=== PATIENT | male | born 1955 | race Caucasian/White ===

== ENCOUNTER 2016-09-06 18:59 | Inpatient (IN) | payer MEDICARE ==
[2016-09-06] MEDS ORDERED: PROVENTIL 2.5 MG/3 ML NEB IH ONE ×2 (19:33→19:45)
[2016-09-06] MEDS ORDERED: Zosyn 3.375GM/100 Ml D5W 100 ML IV ONE ×2 (19:33→20:06)
[2016-09-06] MEDS ORDERED: Zithromax 500 MG/ 250 ML NaCl Premix 250 ML IV ONE ×2 (19:33→20:05)
[2016-09-06] MEDS ORDERED: Sodium Chloride 0.9% 1000 ML 1,000 ML IV STA ×2 (19:33→19:37)
[2016-09-06] MEDS ORDERED: Sodium Chloride 0.9% 1000 ML 2,000 ML ONE (19:34)
[2016-09-06] MEDS ORDERED: TYLENOL 325 MG PO STA (19:37)
--- NOTE | 2016-09-06 19:45 | ERPHSYRPT ---
- History of Present Illness Time Seen by Provider: 09/06/16 19:30 Source: patient, family Exam Limitations: clinical condition Patient Subjective Stated Complaint: sister/poa states pt has been weak and running a temp at home. states weakness has been on the mostly on the rt side and his rt his rt side has been jerking. has been to the neurologist today and had an mri d/t weakness and falling. pt is on thickened liquids, honey consistency. Triage Nursing Assessment: pt alert, answers questions. skin poink, hot and dry. resirations nonlabored. occasional moist cough n oted. Physician History: PATIENT WITH HISTORY OF DIABETES AND COPD COMPLAINS OF PRODUCTIVE COUGH, INCREASING DYSPNEA, FEVER AND CHILLS FOR 3 DAYS. DENIES CHEST PAIN. HAS INCREASED DIFFICULTY BREATHING. Timing/Duration: day(s) Activities at Onset: activity Severity of Dyspnea-Current: severe Possible Cause: occasional episodes Modifying Factors: Improves With: coughing, exertion Associated Symptoms: cough, productive cough Allergies/Adverse Reactions: No Known Drug Allergies Allergy (Verified 09/06/16 19:25) Home Medications: Fluticasone/Salmeterol [Advair 250-50 Diskus] 1 puff IH BID 01/01/12 [History] Gabapentin 600 mg PO TID 01/01/12 [History] Metformin HCl 500 mg [Glucophage 500 MG] 500 mg PO BID 01/01/12 [History] Omeprazole 40 mg PO BID 01/01/12 [History] Sertraline HCl 100 mg PO HS 01/01/12 [History] Tiotropium [place] Inhaler [Spiriva 18 Mcg/Cap Inhaler] 18 mcg IH DAILY [History] Aspirin [Aspir 81] 81 mg PO DAILY 01/20/12 [History] Divalproex Sodium [Depakote] 500 mg PO TID 03/31/14 [History] Duloxetine HCl [Cymbalta] 60 mg PO BID 03/31/14 [History] Ferrous Sulfate 325 mg [Feosol 325 mg] 325 mg PO BID 03/31/14 [History] Mirabegron [Myrbetriq] 50 mg PO HS 03/31/14 [History] Multivitamin [Multivitamins] 1 each PO DAILY 03/31/14 [History] Primidone 50 MG [Mysoline 50Mg] 50 mg PO TID 03/31/14 [History] Tamsulosin HCl 0.4 mg [Flomax 0.4 MG] 0.4 mg PO HS 03/31/14 [History] Albuterol Sulfate [Proair Hfa] 8.5 gm IH Q4H PRN PRN 09/06/16 [History] Atorvastatin Calcium 40 mg PO HS 09/06/16 [History] Cholecalciferol (Vitamin D3) [Vitamin D3] 1,000 unit PO DAILY 09/06/16 [History] Exenatide Microspheres [Bydureon Pen] 2 mg SQ WEEKLY 09/06/16 [History] Hydrocodone/APAP 10/325 mg [[place] 10/325 MG Tablet] 1 tab PO Q4H PRN PRN 09/06/16 [History] Naproxen [Naprosyn] 500 mg PO BID 09/06/16 [History] Topiramate 25 mg [Topamax 25 MG] 25 mg PO HS 09/06/16 [History] Hx Tetanus, Diphtheria Vaccination/Date Given: Yes Hx Influenza Vaccination/Date Given: Yes Hx Pneumococcal Vaccination/Date Given: Yes Immunizations Up to Date: Yes - Review of Systems Constitutional: Fever, Chills Eyes: No Symptoms Ears, Nose, & Throat: No Symptoms Respiratory: Cough, Dyspnea, Dyspnea on Exertion ([place]) Cardiac: No Symptoms Abdominal/Gastrointestinal: No Symptoms Genitourinary Symptoms: No Symptoms Musculoskeletal: No Symptoms Skin: No Symptoms Neurological: Lethargy, Other (GENERALIZED WEAKNESS) Psychological: No Symptoms - Past Medical History Pertinent Past Medical History: Yes Neurological History: Peripheral Neuropathy, Seizures ENT History: No Pertinent History Cardiac History: Hypertension Respiratory History: Asthma Endocrine Medical History: Diabetes Type II Musculoskeletal History: Osteoarthritis GI Medical History: No Pertinent History History: No Pertinent History Psycho-Social History: Depression, Other Male Reproductive Disorders: No Pertinent History Other Medical History: SEE HX IN CHART, sees urologist. - Past Surgical History Past Surgical History: No Neuro Surgical History: No Pertinent History Cardiac: No Pertinent History Respiratory: No Pertinent History Gastrointestinal: Hernia Repair, Other Genitourinary: No Pertinent History Musculoskeletal: No Pertinent History Male Surgical History: No Pertinent History Other Surgical History: right side inguinal hernia surgery 1987. nose operation 1991. ABDOMINAL CYST - Social History Smoking Status: Former smoker How long have you smoked: UNSURE Exposure to second hand smoke: No Drug Use: none Patient Lives Alone: Yes - Nursing Vital Signs Nursing Vital Signs: Initial Vital Signs Temperature 101.9 F Temperature Source Oral Pulse Rate 78 Respiratory Rate 18 Blood Pressure [] 148/103 Pain Intensity 5 - Physical Exam General Appearance: lethargy Eye Exam: PERRL/EOMI Ears, Nose, Throat Exam: hearing grossly normal, normal ENT inspection Neck Exam: normal inspection, supple Respiratory Exam: diminished breath sounds (DIFFUSELY) Cardiovascular/Chest Exam: normal heart sounds, tachycardia Abdominal/Gastrointestinal Exam: soft, normal bowel sounds, No tenderness, No distention, No mass Extremity Exam: non-tender, normal range of motion, normal inspection, no calf tenderness, no pedal edema Peripheral Pulses Exam: carotid (R): 2+, carotid (L): 2+, femoral (R): 2+, femoral (L): 2+, dorsalis-pedis (R): 2+, dorsalis-pedis (L): 2+ Neurologic Exam: alert, oriented x 3, cooperative, 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 NO EVIDENCE OF PULMONARY EMBOLISM) Ordered Tests: Active Orders 24 hr Category Date Time Status Bedrest with BRP/BSC TOLERATED Activity 09/06/16 23:23 Ordered Admission/Status Order ROUTINE Care 09/06/16 23:24 Ordered Paper Control Clerk STAT Care 09/06/16 19:33 Active Clean Catch Urine Specimen STAT Care 09/06/16 19:33 Active Code Status Order ROUTINE Care 09/06/16 23:23 Ordered EKG-ER Only STAT Care 09/06/16 19:33 Active IV Insertion ROUTINE Care 09/06/16 23:24 Ordered IV Insertion STAT Care 09/06/16 19:33 Active Implement Pneumonia Pathway ROUTINE Care 09/06/16 23:24 Ordered Intake and Output 09,13,18,21 Care 09/06/16 23:23 Ordered Oxygen-ED Only NASAL CANNULA 2 lpm Care 09/06/16 19:33 Active Vital Signs .q15mx2,q3omx2,q1hx2,d1in68d Care 09/06/16 23:23 Ordered Cardiac Diet Diet 09/06/16 Breakfast Ordered CHEST 1 VIEW (PORTABLE) Stat Exams 09/06/16 19:34 Taken CHEST WITH CONTRAST [CT] Stat Exams 09/06/16 20:42 Taken ARTERIAL BLOOD GASES Urgent Lab 09/06/16 19:33 Completed BLOOD CULTURE Stat Lab 09/06/16 19:48 Received BLOOD CULTURE Stat Lab 09/06/16 23:24 Ordered BMP Stat Lab 09/06/16 23:24 Ordered CBC W DIFF Stat Lab 09/06/16 19:47 Completed CBC W DIFF Stat Lab 09/06/16 23:24 Ordered CMP Stat Lab 09/06/16 19:47 Completed D-DIMER QUANTITATION Stat Lab 09/06/16 19:47 Completed Lactic Acid Urgent Lab 09/06/16 19:33 Completed PROTIME WITH INR Stat Lab 09/06/16 19:47 Completed TROPONIN Q3H Lab 09/06/16 19:51 Completed TROPONIN Q3H Lab 09/06/16 22:40 Completed TROPONIN Q3H Lab 09/07/16 01:45 Ordered TROPONIN Q3H Lab 09/07/16 04:45 Ordered TROPONIN Q3H Lab 09/07/16 07:45 Ordered UA Stat Lab 09/06/16 23:16 Received Oxygen VENTI-MASK 50% RT 09/06/16 22:35 Active Oxygen VENTI-MASK 50% RT 09/06/16 23:23 Ordered Respiratory Nebulizer STAT RT 09/06/16 19:34 Completed Respiratory Therapy Consult ROUTINE RT 09/06/16 23:24 Ordered Transfer Order Routine Transfer 09/06/16 23:23 Ordered Medication Summary Discontinued Medications Generic Name Dose Route Start Last Admin Trade Name Freq PRN Reason Stop Dose Admin Acetaminophen 650 mg 09/06/16 19:37 09/06/16 20:08 Tylenol 325 Mg PO 09/06/16 19:38 650 mg STAT STA Administration Acetaminophen Confirm 09/06/16 20:08 Tylenol 325 Mg Administered 09/06/16 20:09 Dose 650 mg .ROUTE .STK-MED ONE Albuterol Sulfate 10 mg 09/06/16 19:33 09/06/16 20:10 Proventil 2.5 Mg/3 Ml Neb IH 09/06/16 19:34 10 mg STAT ONE Administration Albuterol Sulfate Confirm 09/06/16 19:45 Proventil 2.5 Mg/3 Ml Neb Administered 09/06/16 19:46 Dose 2.5 mg IH .STK-MED ONE Azithromycin 250 mls @ 125 mls/hr 09/06/16 19:33 09/06/16 20:07 Zithromax 500 Mg/ 250 Ml Nacl Premix IV 09/06/16 21:32 125 mls/hr STAT ONE Administration Piperacillin Sod/Tazobactam Sod 100 mls @ 100 mls/hr 09/06/16 19:33 09/06/16 20:07 Zosyn 3.375gm/100 Ml D5w IV 09/06/16 20:32 100 mls/hr STAT ONE Administration Sodium Chloride 1,000 mls @ 999 mls/hr 09/06/16 19:33 09/06/16 20:07 Sodium Chloride 0.9% 1000 Ml IV 09/06/16 20:33 999 mls/hr .Q1H1M STA Administration Sodium Chloride Confirm 09/06/16 19:34 Sodium Chloride 0.9% 1000 Ml Administered 09/06/16 19:35 Dose 2,000 mls @ ud .ROUTE .STK-MED ONE Sodium Chloride 1,000 mls @ 999 mls/hr 09/06/16 19:37 09/06/16 20:07 Sodium Chloride 0.9% 1000 Ml IV 09/06/16 20:37 999 mls/hr .Q1H1M STA Administration Azithromycin Confirm 09/06/16 20:05 Zithromax 500 Mg/ 250 Ml Nacl Premix Administered 09/06/16 20:06 Dose 250 mls @ ud IV .STK-MED ONE Piperacillin Sod/Tazobactam Sod Confirm 09/06/16 20:06 Zosyn 3.375gm/100 Ml D5w Administered 09/06/16 20:07 Dose 100 mls @ ud IV .STK-MED ONE Sodium Chloride Confirm 09/06/16 22:56 Sodium Chloride 0.9% 1000 Ml Administered 09/06/16 22:57 Dose 1,000 mls @ ud .ROUTE .STK-MED ONE Methylprednisolone Sodium Succinate 125 mg 09/06/16 23:22 09/06/16 23:30 Solu-Medrol 125 Mg IV 09/06/16 23:23 125 mg STAT ONE Administration Methylprednisolone Sodium Succinate Confirm 09/06/16 23:26 Solu-Medrol 125 Mg Administered 09/06/16 23:27 Dose 125 mg .ROUTE .STK-MED ONE Sodium Chloride Confirm 09/06/16 20:06 Sodium Chloride 3 Ml Ud Nebules Administered 09/06/16 20:07 Dose 3 ml IH .STK-MED ONE Lab/Rad Data: Laboratory Result Diagrams 09/06/16 19:47 09/06/16 19:47 Laboratory Results 09/06/16 09/06/16 09/06/16 Range/Units 22:40 19:51 19:47 WBC (4.0-10.5) K/mm3 RBC (4.1-5.6) M/mm3 Hgb (12.5-18.0) gm/dl Hct (42-50) % MCV (78-100) fl MCH (26-32) pg MCHC (32-36) g/dl RDW (11.5-14.0) % Plt Count (150-450) K/mm3 MPV (6-9.5) fl Gran % (36.0-66.0) % Lymphocytes % (24.0-44.0) % Monocytes % (0.0-12.0) % Eosinophils % (0.00-5.0) % Basophils % (0.0-0.4) % Basophils # (0-0.4) INR 1.52 (0.8-3.0) D-Dimer 1.261 H* (0.00-0.49) mg/L Puncture Site pCO2 (35-45) mmHg pO2 (75-100) mmHg Base Excess (-2.0-2.0) O2 Saturation (94-100) g/dF ABG pH (7.35-7.45) ABG HCO3 (22-28) ABG O2 Sat (Measured) (95-100) % Mane Test A-a Gradient a/A Ratio Hemoglobin Carboxyhemoglobin (0.0-6.9) % THgb Methemoglobin (1.4-1.5) % Potassium (3.5-5.1) Temperature C POC O2 Flow Rate % Sodium (136-145) mEq/L Chloride (98-107) mEq/L Carbon Dioxide (21-32) mEq/L Anion Gap (5-15) MEQ/L BUN (9-20) mg/dL Creatinine (0.55-1.30) mg/dl Estimated GFR ML/MIN Glucose (70-110) MG/DL Lactic Acid (0.4-2.0) Calcium (8.5-10.1) mg/dL Total Bilirubin (0.2-1.0) mg/dL AST (15-37) U/L ALT (12-78) U/L Alkaline Phosphatase (46-116) U/L Troponin I < 0.017 < 0.017 (0.000-0.056) ng/ml Serum Total Protein (6.4-8.2) gm/dL Albumin (3.4-5.0) g/dL Slides for Path Review 09/06/16 09/06/16 09/06/16 Range/Units 19:47 19:47 19:33 WBC 4.3 (4.0-10.5) K/mm3 RBC 4.01 L (4.1-5.6) M/mm3 Hgb 12.7 (12.5-18.0) gm/dl Hct 37.9 L (42-50) % MCV 94.5 (78-100) fl MCH 31.6 (26-32) pg MCHC 33.5 (32-36) g/dl RDW 13.0 (11.5-14.0) % Plt Count 88 L (150-450) K/mm3 MPV 12.1 H (6-9.5) fl Gran % 66.0 (36.0-66.0) % Lymphocytes % 22.3 L (24.0-44.0) % Monocytes % 11.0 (0.0-12.0) % Eosinophils % 0.5 (0.00-5.0) % Basophils % 0.2 (0.0-0.4) % Basophils # 0.01 (0-0.4) INR (0.8-3.0) D-Dimer (0.00-0.49) mg/L Puncture Site RIGHT RADIAL pCO2 42 (35-45) mmHg pO2 72 L (75-100) mmHg Base Excess 1.0 (-2.0-2.0) O2 Saturation 94.9 (94-100) g/dF ABG pH 7.40 (7.35-7.45) ABG HCO3 26.0 (22-28) ABG O2 Sat (Measured) 98.1 (95-100) % Mane Test YES A-a Gradient 75 a/A Ratio 0.49 Hemoglobin 10.1 Carboxyhemoglobin 2.7 (0.0-6.9) % THgb Methemoglobin 0.5 L (1.4-1.5) % Potassium 4.0 3.7 (3.5-5.1) Temperature 37.0 C POC O2 Flow Rate 28 % Sodium 141 (136-145) mEq/L Chloride 104 (98-107) mEq/L Carbon Dioxide 28.3 (21-32) mEq/L Anion Gap 12.7 (5-15) MEQ/L BUN 28 H (9-20) mg/dL Creatinine 1.09 (0.55-1.30) mg/dl Estimated GFR > 60 ML/MIN Glucose 121 H (70-110) MG/DL Lactic Acid 1.1 (0.4-2.0) Calcium 8.3 L (8.5-10.1) mg/dL Total Bilirubin 0.2 (0.2-1.0) mg/dL AST 55 H (15-37) U/L ALT 53 (12-78) U/L Alkaline Phosphatase 45 L (46-116) U/L Troponin I (0.000-0.056) ng/ml Serum Total Protein 6.3 L (6.4-8.2) gm/dL Albumin 3.4 (3.4-5.0) g/dL Slides for Path Review YES - Progress Progress: improved Air Movement: fair Progress Note: 09/06/16 19:48 PATIENT PLACED ON SESPIS PROTOCOL, GIVEN IV BOLUS 70MG X 30ML AT 1940, AFTER 2 SETS OF BLOOD CULTURES OBTAINED ZOSYN 3.375GM AND ZITHROMAX 500MG IVPB. CONTINUOUS ALBUTEROL 10MG AEROSOL TX OVER 1 HOUR. 09/06/16 23:18 PATIENT RECEIVED ADDITIONAL LITER 3RD OVER 1 HOUR, PERIPHERAL PULSES 2+, CHEST POST AEROSOL TX MINIMAL WHEESES, PLACED ON 50% OXYGEN VENTI MASK Blood Culture(s) Obtained: Yes Antibiotics given: Yes Discussed with : Donaldo (DISCUSSED WITH DR JOHANSEN AT 2300 FOR ADMISSION) - Departure Time of Disposition: 23:20 Departure Disposition: In-patient Admission Clinical Impression: PNEUMONIA, EXACERBATION COPD Condition: Stable Critical Care Time: No Referrals: NORBERT STATON [Primary Care Provider] -
[2016-09-06 19:55] LABS: BASOPHIL % 0.2 % (0.0-0.4); Eosinophil % 0.5 % (0.00-5.0); Lymphocytes % 22.3 % (24.0-44.0); Mean Cell Volume 94.5 fl (78-100); Mean Platelet Volume 12.1 fl (6-9.5); Platelet Count 88 K/mm3 (150-450); Red Blood Count 4.01 M/mm3 (4.1-5.6); White Blood Count 4.3 K/mm3 (4.0-10.5)
[2016-09-06 19:58] LABS: Mean Corpuscular Hemoglobin 31.6 pg (26-32)
[2016-09-06] MEDS ORDERED: Sodium Chloride 3 ML UD NEBULES IH ONE (20:06)
[2016-09-06] MEDS ORDERED: TYLENOL 325 MG ONE (20:08)
[2016-09-06 20:12] LABS: INR 1.52 (0.8-3.0); PROTIME 16.8 SECONDS (8.83-12.87)
[2016-09-06 20:15] LABS: ALBUMIN 3.4 g/dL (3.4-5.0); ALKALINE PHOSPHATASE 45 U/L (46-116); ANION GAP 12.7 MEQ/L (5-15); BILIRUBIN,TOTAL 0.2 mg/dL (0.2-1.0); BLOOD UREA NITROGEN 28 mg/dL (9-20); CHLORIDE 104 mEq/L (98-107); Carbon Dioxide 28.3 mEq/L (21-32); Glucose 121 MG/DL (70-110); SGOT/AST 55 U/L (15-37); SGPT/ALT 53 U/L (12-78); SODIUM 141 mEq/L (136-145); Total Protein 6.3 gm/dL (6.4-8.2)
[2016-09-06 20:40] LABS: A-aADO2 75; ARTERIAL BLD GAS O2 SATURATION 98.1 % (95-100); ARTERIAL BLOOD GAS FIO2 28 %; ARTERIAL BLOOD GAS PO2 72 mmHg (75-100); Lactic Acid 1.1 (0.4-2.0)
[2016-09-06 20:41] LABS: ALLEN TEST OK? YES
[2016-09-06] MEDS ORDERED: HOLD METFORMIN PRODUCTS FOR 48 HOURS MC PRN (21:50)
[2016-09-06] MEDS ORDERED: Sodium Chloride 0.9% 1000 ML 1,000 ML ONE (22:56)
[2016-09-06] MEDS ORDERED: solu-MEDROL 125 MG IV ONE (23:22)
[2016-09-06] MEDS ORDERED: DUONEB 0.5-3 MG/3 ml Neb IH PRN (23:23)
[2016-09-06] MEDS ORDERED: Xopenex 1.25 MG/0.5 ML UD NEBULE IH PRN (23:23)
[2016-09-06] MEDS ORDERED: solu-MEDROL 125 MG ONE (23:26)
[2016-09-06 23:37] LABS: Collection Type CLEAN CATCH; Ph 5.5 (5-6)
[2016-09-06 23:38] LABS: Bacteria RARE /HPF (NEGATIVE); COMPLETE URINE MICROSCOPIC? YES
[2016-09-07] MEDS ORDERED: solu-MEDROL 40 MG IV SCH (00:28)
[2016-09-07] MEDS: Zosyn 3.375GM/100 Ml D5W 100 ML IV SCH ×4 (01:14→19:14)
[2016-09-07] MEDS ORDERED: PROVENTIL COMMON CANISTER IH PRN (02:54)
[2016-09-07] MEDS ORDERED: solu-MEDROL 125 MG IV SCH (08:00)
--- NOTE | 2016-09-07 08:21 | XRAY ---
Indication: Cough and short of breath. Elevated d-dimer. Multiple contiguous axial images obtained through the chest using 80 cc Isovue 370 contrast and PE protocol. Comparison: February 02, 2012. There is good opacification of the pulmonary arteries. However respiration artifact limits evaluation of the more distal branches. No large central pulmonary embolus. Heart is not enlarged. Aorta is normal in course and caliber. No pathologic mediastinal/hilar lymphadenopathy. Examination of the lung parenchyma demonstrates new bibasilar infiltrates/atelectasis. No suspicious pulmonary mass or effusion. Bony thorax intact again with mild degenerative changes throughout the spine. Limited upper abdomen including adrenal glands are unremarkable. Impression: 1. Respiration artifact. Negative for central pulmonary embolus. 2. New bibasilar infiltrates/atelectasis. Correlate clinically to rule out pneumonic process. Comment: Preliminary interpretation was made by [facility]. No critical discrepancy. CTDI 23.65
--- NOTE | 2016-09-07 08:24 | XRAY ---
Indication: Cough and dyspnea. Comparison: March 31, 2014 Portable chest demonstrates bibasilar infiltrates/atelectasis, new on the right and stable on the left. Heart is not enlarged. Bony thorax intact again with mild degenerative changes.
[2016-09-07] MEDS: solu-MEDROL 125 MG IV SCH ×2 (08:38→15:39)
[2016-09-07] MEDS ORDERED: TYLENOL 325 MG PO PRN (08:52)
--- NOTE | 2016-09-07 08:59 | PCM.HP ---
History of Present Illness - Chief Complaint Chief Complaint: PNE, ECACERBATION COPD History of Present Illness: is a 61 year old male who presented to the ER last night with high fever and cough, was found to have bilateral pneumonia. He has a history of mental retardation, seizure disorder and type 2 diabetes. He reports some improvement since arrival. Has been afebrile overnight, initially had significant oxygen requirement and was on venti-mask. He is currently on a nasal cannula and eating breakfast. - Review of Systems Constitutional: Fever, Chills Respiratory: Cough, Short Of Breath Cardiac: No Chest Pain, No Edema, No Syncope Skin: No Rash Neurological: No Seizure All Other Systems: Reviewed and Negative Medications & Allergies Home Medications: Home Medication List Fluticasone/Salmeterol [Advair 250-50 Diskus] 1 puff IH BID 01/01/12 [History Confirmed 09/06/16] Gabapentin 600 mg PO TID 01/01/12 [History Confirmed 09/06/16] Metformin HCl 500 mg [Glucophage 500 MG] 500 mg PO BID 01/01/12 [History Confirmed 09/06/16] Omeprazole 40 mg PO BID 01/01/12 [History Confirmed 09/06/16] Sertraline HCl 100 mg PO HS 01/01/12 [History Confirmed 09/06/16] Tiotropium [place] Inhaler [Spiriva 18 Mcg/Cap Inhaler] 18 mcg IH DAILY [History Confirmed 09/06/16] Aspirin [Aspir 81] 81 mg PO DAILY 01/20/12 [History Confirmed 09/06/16] Divalproex Sodium [Depakote] 500 mg PO TID 03/31/14 [History Confirmed 09/06/16] Duloxetine HCl [Cymbalta] 60 mg PO BID 03/31/14 [History Confirmed 09/06/16] Ferrous Sulfate 325 mg [Feosol 325 mg] 325 mg PO BID 03/31/14 [History Confirmed 09/06/16] Mirabegron [Myrbetriq] 50 mg PO HS 03/31/14 [History Confirmed 09/06/16] Multivitamin [Multivitamins] 1 each PO DAILY 03/31/14 [History Confirmed ] Primidone 50 MG [Mysoline 50Mg] 50 mg PO TID 03/31/14 [History Confirmed 05/13] Tamsulosin HCl 0.4 mg [Flomax 0.4 MG] 0.4 mg PO HS 03/31/14 [History Confirmed 09/06/16] Albuterol Sulfate [Proair Hfa] 2 puff IH Q4H PRN PRN 09/06/16 [History Confirmed 09/07/16] Atorvastatin Calcium 40 mg PO HS 09/06/16 [History Confirmed 09/06/16] Cholecalciferol (Vitamin D3) [Vitamin D3] 1,000 unit PO DAILY 09/06/16 [History Confirmed 09/06/16] Exenatide Microspheres [Bydureon Pen] 2 mg SQ WEEKLY 09/06/16 [History Confirmed 09/06/16] Hydrocodone/APAP 10/325 mg [[place] 10/325 MG Tablet] 1 tab PO Q4H PRN PRN 09/06/16 [History Confirmed 09/06/16] Naproxen [Naprosyn] 500 mg PO BID 09/06/16 [History Confirmed 09/06/16] Topiramate 25 mg [Topamax 25 MG] 25 mg PO HS 09/06/16 [History Confirmed 09/06/16] Albuterol Sulfate 0.63 mg IH TID 09/07/16 [History Confirmed 09/07/16] Sennosides [[place] Laxative] 8.6 mg PO UD PRN 09/07/16 [History Confirmed ] Allergies/Adverse Reactions: Allergies Allergy/AdvReac Type Severity Reaction Status Date / Time No Known Drug Allergies Allergy Verified 09/06/16 19:25 - Past Medical History Past Medical History: Yes Neurological History: Peripheral Neuropathy, Seizures ENT History: No Pertinent History Cardiac History: Hypertension Respiratory History: Asthma, COPD, Pneumonia Endocrine Medical History: Diabetes Type II Musculoskelatal History: Osteoarthritis GI Medical History: Hernia History: Other Pyscho-Social History: Depression, Other Male Reproductive Disorders: No Pertinent History Comment: SEE HX IN CHART, sees urologist. - Past Surgical History Past Surgical History: Yes Neuro Surgical History: No Pertinent History Cardiac History: No Pertinent History Respiratory Surgery: No Pertinent History GI Surgical History: Hernia Repair, Other Genitourinary Surgical Hx: No Pertinent History Musculskeletal Surgical Hx: No Pertinent History Male Surgical History: No Pertinent History Other Surgical History: right side inguinal hernia surgery 1987. nose operation 1991. ABDOMINAL CYST - Social History Smoking Status: Never smoker How long have you smoked: UNSURE Exposure to second hand smoke: No Alcohol: None Drug Use: none - Physical Exam Vital Signs: Vital Signs - 24 hr Temp Pulse Resp BP BP Pulse Ox 09/07/16 08:00 98.1 F 77 21 102/63 93 L 09/07/16 04:00 98.3 F 95 H 24 101/68 91 L 09/07/16 01:49 100.5 F 112 H 28 H 101/58 97 09/07/16 01:27 102 H 27 H 95 09/06/16 23:30 90 L 09/06/16 23:24 100.6 F 119 H 28 H 107/56 94 L 09/06/16 22:23 78 18 148/103 09/06/16 20:53 133 H 34 H 125/57 93 L 09/06/16 20:25 123 H 24 118/72 96 09/06/16 20:18 114 H 24 91 L 09/06/16 19:11 101.9 F 122 H 20 134/84 90 L Oxygen-Last 24 hours O2 Percentage 50% O2 Percentage 50% O2 Percentage 50% O2 Percentage 50% O2 Percentage 2 Liters = 28% General Appearance: no apparent distress, alert Neurologic Exam: alert, oriented x 3, cooperative, normal mood/affect, nml cerebellar function, sensation nml, No motor deficits Eye Exam: PERRL/EOMI, eyes nml inspection Respiratory Exam: crackles/rales (bibasilar) Cardiovascular Exam: regular rate/rhythm, normal heart sounds, normal peripheral pulses Extremity Exam: normal inspection, normal range of motion, pelvis stable Skin Exam: normal color, warm, dry, No rash Results - Labs Lab/Micro Results: Lab Results-Last 24 Hours 09/07/16 09/07/16 09/07/16 Range/Units 01:45 01:54 05:01 Hemoglobin A1c (4.5-6.2) Troponin I < 0.017 < 0.017 (0.000-0.056) ng/ml Prealbumin 14.9 L (18.0-35.7) mg/dL 09/07/16 09/07/16 Range/Units 05:01 07:40 Hemoglobin A1c 5.3 (4.5-6.2) Troponin I < 0.017 (0.000-0.056) ng/ml Prealbumin (18.0-35.7) mg/dL - Other Procedures and Tests Respiratory Therapy 09/07/16 02:53 Respiratory MDI BID 09/07/16 03:00 Respiratory MDI UD 09/07/16 03:01 Respiratory MDI PRN Assessment/Plan (1) Pneumonia Current Visit: Yes Status: Acute Qualifiers: Laterality: bilateral Lung location: lower lobe of lung Assessment & Plan: continue zosyn and zithromax, has been hemodynamically stable. will attempt to wean oxygen and transfer to med/surg. seems to have improved in the few hours he has been admitted Code(s): J18.9 - PNEUMONIA, UNSPECIFIED ORGANISM (2) Hypoxia Current Visit: Yes Status: Acute Code(s): R09.02 - HYPOXEMIA (3) Diabetes mellitus Current Visit: Yes Status: Acute Assessment & Plan: hold metformin due to cta, will treat with ssi Code(s): E11.9 - TYPE 2 DIABETES MELLITUS WITHOUT COMPLICATIONS (4) Seizure disorder Current Visit: Yes Status: Acute Assessment & Plan: stable, continue home meds Code(s): G40.909 - EPILEPSY, UNSP, NOT INTRACTABLE, WITHOUT STATUS EPILEPTICUS
[2016-09-07] MEDS ORDERED: SENOKOT 8.6 MG PO PRN (09:11)
[2016-09-07] MEDS: SODIUM CHLORIDE 0.45% W/ 20 mEq KCL 1,000 ML IV SCH (09:18)
[2016-09-07] MEDS ORDERED: MEDICATION INTERVENTION MC PRN (09:38)
[2016-09-07] MEDS ORDERED: NON-FORMULARY ITEM (Omeprazole [Omeprazole] 40 MG) PO SCH (10:00)
[2016-09-07] MEDS ORDERED: NON-FORMULARY ITEM (Divalproex Sodium [Depakote] 500 MG) PO SCH (10:00)
[2016-09-07] MEDS ORDERED: NON-FORMULARY ITEM (Duloxetine Hcl [Cymbalta] 60 MG) PO SCH (10:00)
[2016-09-07] MEDS: Advair Hfa 115/21 Common canister IH SCH ×2 (10:00→19:14)
[2016-09-07] MEDS ORDERED: NON-FORMULARY ITEM (Gabapentin [Gabapentin] 600 MG) PO SCH (10:00)
[2016-09-07] MEDS: Spiriva 18 Mcg/Cap Inhaler IH SCH (10:01)
[2016-09-07] MEDS: ECOTRIN 81 MG PO SCH (10:05)
[2016-09-07] MEDS: FEOSOL 325 MG PO SCH ×2 (10:05→22:33)
[2016-09-07] MEDS: Norco 10/325 MG Tablet PO PRN ×2 (10:05→15:43)
[2016-09-07] MEDS: MYSOLINE 50MG PO SCH ×3 (10:05→22:34)
[2016-09-07] MEDS: Protonix 40MG Tablet PO SCH ×2 (10:05→22:35)
[2016-09-07] MEDS: NEURONTIN 300 MG PO SCH ×3 (10:05→22:35)
[2016-09-07] MEDS: Cymbalta 30 MG Capsule PO SCH ×2 (10:05→22:34)
[2016-09-07] MEDS: ENOXAPARIN SODIUM SQ SCH (13:51)
[2016-09-07] MEDS ORDERED: NON-FORMULARY ITEM (Mirabegron [Myrbetriq] 50 MG) PO SCH (22:00)
[2016-09-07] MEDS ORDERED: NON-FORMULARY ITEM (Sertraline Hcl [Sertraline Hcl] 100 MG) PO SCH (22:00)
[2016-09-07] MEDS ORDERED: LIPITOR 40MG PO SCH (22:00)
[2016-09-07] MEDS: Zithromax 500 MG/ 250 ML NaCl Premix 250 ML IV SCH (22:17)
[2016-09-07] MEDS: NovoLOG Insulin SQ PRN (22:20)
[2016-09-07] MEDS: Flomax 0.4 MG PO SCH (22:34)
[2016-09-07] MEDS: ZOCOR 20MG PO SCH (22:34)
[2016-09-07] MEDS: Topamax 25 MG PO SCH (22:34)
[2016-09-07] MEDS: ZOLOFT 50 MG TABLET PO SCH (22:35)
[2016-09-08] MEDS: solu-MEDROL 125 MG IV SCH (00:14)
[2016-09-08] MEDS: SODIUM CHLORIDE 0.45% W/ 20 mEq KCL 1,000 ML IV SCH ×2 (00:16→17:05)
[2016-09-08] MEDS: Zosyn 3.375GM/100 Ml D5W 100 ML IV SCH ×4 (00:17→17:01)
[2016-09-08] MEDS: Norco 10/325 MG Tablet PO PRN ×2 (02:34→21:49)
[2016-09-08 06:05] LABS: Mean Cell Volume 94.5 fl (78-100); Mean Platelet Volume 11.9 fl (6-9.5); Platelet Count 92 K/mm3 (150-450); Red Blood Count 3.83 M/mm3 (4.1-5.6); Red Cell Distribution Width 12.9 % (11.5-14.0); White Blood Count 9.1 K/mm3 (4.0-10.5)
[2016-09-08 06:16] LABS: ALBUMIN 2.9 g/dL (3.4-5.0); ALKALINE PHOSPHATASE 43 U/L (46-116); ANION GAP 12.7 MEQ/L (5-15); BILIRUBIN,TOTAL 0.2 mg/dL (0.2-1.0); BLOOD UREA NITROGEN 19 mg/dL (9-20); CHLORIDE 106 mEq/L (98-107); Carbon Dioxide 25.3 mEq/L (21-32); Glucose 224 MG/DL (70-110); Potassium 4.2 mEq/L (3.5-5.1); SGOT/AST 38 U/L (15-37); SGPT/ALT 44 U/L (12-78); SODIUM 140 mEq/L (136-145); Total Protein 5.9 gm/dL (6.4-8.2)
[2016-09-08] MEDS: ENOXAPARIN SODIUM SQ SCH (08:29)
[2016-09-08] MEDS: NEURONTIN 300 MG PO SCH ×3 (08:30→21:48)
[2016-09-08] MEDS: ECOTRIN 81 MG PO SCH (08:30)
[2016-09-08] MEDS: FEOSOL 325 MG PO SCH ×2 (08:30→21:48)
[2016-09-08] MEDS: Protonix 40MG Tablet PO SCH ×2 (08:30→21:49)
[2016-09-08] MEDS: MYSOLINE 50MG PO SCH ×3 (08:30→21:48)
[2016-09-08] MEDS: Cymbalta 30 MG Capsule PO SCH ×2 (08:30→21:47)
[2016-09-08] MEDS: Spiriva 18 Mcg/Cap Inhaler IH SCH (08:55)
[2016-09-08] MEDS: Advair Hfa 115/21 Common canister IH SCH ×2 (08:55→19:27)
--- NOTE | 2016-09-08 08:59 | PCM.NOTE ---
Date and Time: 09/08/16 0858 Subjective Assessment: patient states he is feeling a little better, still has some cough. no new complaints Objective Exam General Appearance: no apparent distress, alert Respiratory Exam: crackles/rales Cardiovascular Exam: regular rate/rhythm, normal heart sounds Gastrointestinal/Abdomen Exam: soft, No tenderness, No mass Extremity Exam: normal inspection, normal range of motion OBJECTIVE DATA Vital Signs: Vital Signs - 24 hr Temp Pulse Resp BP Pulse Ox 09/08/16 07:35 97.9 F 67 18 138/72 95 09/08/16 03:54 98.1 F 73 20 143/70 93 L 09/08/16 00:00 98.1 F 75 16 129/64 93 L 09/07/16 19:53 98.0 F 72 16 133/72 92 L 09/07/16 19:14 68 18 91 L 09/07/16 16:00 96.3 F 70 19 112/67 91 L 09/07/16 11:41 99.1 F 92 H 20 100/59 90 L 09/07/16 10:02 84 18 94 L Oxygen-Last 24 hours O2 Percentage 4 Liters = 36% O2 Percentage 4 Liters = 36% O2 Percentage 4 Liters = 36% O2 Percentage 4 Liters = 36% O2 Percentage 4 Liters = 36% O2 Percentage 4 Liters = 36% Pain Assessment - Last Documented Pain Intensity 3 Pain Scale [facility] Intake and Output: Intake & Output 09/05/16 09/06/16 09/07/16 09/08/16 11:59 11:59 11:59 11:59 Intake Total 3623 2055 Output Total 1195 500 Balance 2428 1555 Weight 72.8 kg Lab Results: Accuchecks Date 09/08/16 Date 09/07/16 Date 09/07/16 Date 09/07/16 Time 07:30 Time 16:30 Time 11:30 Accucheck Value: 178 Accucheck Value: 259 Accucheck Value: 180 Accucheck Value: 183 Lab Results-Last 24 Hours 09/08/16 09/08/16 Range/Units 05:25 05:25 WBC 9.1 (4.0-10.5) K/mm3 RBC 3.83 L (4.1-5.6) M/mm3 Hgb 11.9 L (12.5-18.0) gm/dl Hct 36.2 L (42-50) % MCV 94.5 (78-100) fl MCH 31.0 (26-32) pg MCHC 32.9 (32-36) g/dl RDW 12.9 (11.5-14.0) % Plt Count 92 L (150-450) K/mm3 MPV 11.9 H (6-9.5) fl Sodium 140 (136-145) mEq/L Potassium 4.2 (3.5-5.1) mEq/L Chloride 106 (98-107) mEq/L Carbon Dioxide 25.3 (21-32) mEq/L Anion Gap 12.7 (5-15) MEQ/L BUN 19 (9-20) mg/dL Creatinine 0.88 (0.55-1.30) mg/dl Estimated GFR > 60 ML/MIN Glucose 224 H (70-110) MG/DL Calcium 7.8 L (8.5-10.1) mg/dL Total Bilirubin 0.2 (0.2-1.0) mg/dL AST 38 H (15-37) U/L ALT 44 (12-78) U/L Alkaline Phosphatase 43 L (46-116) U/L Serum Total Protein 5.9 L (6.4-8.2) gm/dL Albumin 2.9 L (3.4-5.0) g/dL Assessment/Plan (1) Pneumonia Current Visit: Yes Status: Acute Qualifiers: Laterality: bilateral Lung location: lower lobe of lung Assessment & Plan: continue current regimen with zosyn and zithromax Code(s): J18.9 - PNEUMONIA, UNSPECIFIED ORGANISM (2) Hypoxia Current Visit: Yes Status: Acute Code(s): R09.02 - HYPOXEMIA (3) Diabetes mellitus Current Visit: Yes Status: Acute Code(s): E11.9 - TYPE 2 DIABETES MELLITUS WITHOUT COMPLICATIONS (4) Seizure disorder Current Visit: Yes Status: Acute Code(s): G40.909 - EPILEPSY, UNSP, NOT INTRACTABLE, WITHOUT STATUS EPILEPTICUS
[2016-09-08 09:35] LABS: BAND 1 % (0.0-2.0); Platelet Estimate DECREASED (NORMAL); Total Cells Counted 100; Toxic Granulation 1+
[2016-09-08] MEDS: Flomax 0.4 MG PO SCH (21:48)
[2016-09-08] MEDS: Topamax 25 MG PO SCH (21:49)
[2016-09-08] MEDS: Zithromax 500 MG/ 250 ML NaCl Premix 250 ML IV SCH (21:49)
[2016-09-08] MEDS: ZOCOR 20MG PO SCH (21:49)
[2016-09-08] MEDS: ZOLOFT 50 MG TABLET PO SCH (21:49)
[2016-09-08] MEDS: NovoLOG Insulin SQ PRN (21:50)
[2016-09-09] MEDS: Zosyn 3.375GM/100 Ml D5W 100 ML IV SCH ×4 (00:54→17:21)
[2016-09-09 05:46] LABS: BASOPHIL % 0.1 % (0.0-0.4); Eosinophil % 0.1 % (0.00-5.0); Granulocytes % 47.4 % (36.0-66.0); Lymphocytes % 42.5 % (24.0-44.0); Mean Cell Volume 94.8 fl (78-100); Mean Corpuscular Hemoglobin 31.3 pg (26-32); Mean Platelet Volume 11.2 fl (6-9.5); Monocytes % 9.9 % (0.0-12.0); Platelet Count 106 K/mm3 (150-450); Red Blood Count 3.86 M/mm3 (4.1-5.6); Red Cell Distribution Width 12.7 % (11.5-14.0); White Blood Count 7.7 K/mm3 (4.0-10.5)
[2016-09-09 05:48] LABS: BLOOD UREA NITROGEN 15 mg/dL (9-20); CHLORIDE 107 mEq/L (98-107); Carbon Dioxide 27.1 mEq/L (21-32); Glucose 146 MG/DL (70-110); SODIUM 143 mEq/L (136-145)
[2016-09-09] MEDS: Advair Hfa 115/21 Common canister IH SCH ×2 (07:59→19:55)
[2016-09-09] MEDS: Spiriva 18 Mcg/Cap Inhaler IH SCH (08:00)
[2016-09-09] MEDS: NEURONTIN 300 MG PO SCH ×3 (08:34→21:00)
[2016-09-09] MEDS: MYSOLINE 50MG PO SCH ×3 (08:34→21:03)
[2016-09-09] MEDS: ENOXAPARIN SODIUM SQ SCH (08:34)
[2016-09-09] MEDS: Protonix 40MG Tablet PO SCH ×2 (08:36→21:03)
[2016-09-09] MEDS: Cymbalta 30 MG Capsule PO SCH ×2 (08:36→21:02)
[2016-09-09] MEDS: SODIUM CHLORIDE 0.45% W/ 20 mEq KCL 1,000 ML IV SCH (08:37)
[2016-09-09] MEDS: FEOSOL 325 MG PO SCH ×2 (08:37→21:01)
[2016-09-09] MEDS: ECOTRIN 81 MG PO SCH (08:37)
[2016-09-09] MEDS: Flomax 0.4 MG PO SCH (21:01)
[2016-09-09] MEDS: ZOCOR 20MG PO SCH (21:02)
[2016-09-09] MEDS: ZOLOFT 50 MG TABLET PO SCH (21:02)
[2016-09-09] MEDS: Topamax 25 MG PO SCH (21:04)
[2016-09-09] MEDS: Zithromax 500 MG/ 250 ML NaCl Premix 250 ML IV SCH (21:05)
[2016-09-09] MEDS: NovoLOG Insulin SQ PRN (21:56)
[2016-09-10] MEDS: SODIUM CHLORIDE 0.45% W/ 20 mEq KCL 1,000 ML IV SCH (04:22)
[2016-09-10] MEDS: Spiriva 18 Mcg/Cap Inhaler IH SCH (07:01)
[2016-09-10] MEDS: Advair Hfa 115/21 Common canister IH SCH ×2 (07:02→18:32)
[2016-09-10] MEDS: Zosyn 3.375GM/100 Ml D5W 100 ML IV SCH ×4 (07:31→18:17)
--- NOTE | 2016-09-10 07:43 | PCM.NOTE ---
Date and Time: 09/10/16 0737 Subjective Assessment: he denies complaints this am he is unsure how he thinks his brething is doing Objective Exam General Appearance: no apparent distress, alert Neurologic Exam: alert, oriented x 3, cooperative, normal mood/affect, nml cerebellar function, sensation nml, other (decreased cognitive ability chronically), No motor deficits Skin Exam: normal color, warm, dry Eye Exam: PERRL, EOMI, eyes nml inspection Ears, Nose, Throat Exam: normal ENT inspection, pharynx normal, moist mucous membranes Neck Exam: normal inspection, non-tender, supple, full range of motion Respiratory Exam: prolonged expirations, wheezing Cardiovascular Exam: regular rate/rhythm, normal heart sounds Gastrointestinal/Abdomen Exam: soft, No tenderness, No mass Extremity Exam: normal inspection, normal range of motion Back Exam: normal inspection, normal range of motion, No CVA tenderness, No vertebral tenderness Male Genitalia Exam: deferred Rectal Exam: deferred OBJECTIVE DATA Vital Signs: Vital Signs - 24 hr Temp Pulse Resp BP Pulse Ox 09/10/16 07:34 98.0 F 80 18 100/58 95 09/10/16 07:03 80 18 95 09/10/16 04:00 98.9 F 65 19 130/80 94 L 09/09/16 23:21 98.7 F 94 H 20 115/74 93 L 09/09/16 19:55 92 H 21 97 09/09/16 19:45 99.5 F 105 H 22 103/59 95 09/09/16 15:58 100.7 F 09/09/16 15:53 100.3 F 103 H 20 103/56 96 09/09/16 12:00 99.5 F 97 H 16 110/64 93 L 09/09/16 08:00 78 20 94 L Oxygen-Last 24 hours O2 Percentage 3 Liters = 32% O2 Percentage 4 Liters = 36% O2 Percentage 4 Liters = 36% O2 Percentage 4 Liters = 36% Pain Assessment - Last Documented Pain Intensity 0 Pain Scale Used 0-10 Pain Scale Intake and Output: Intake & Output 09/07/16 09/08/16 09/09/16 09/10/16 11:59 11:59 11:59 11:59 Intake Total 3623 2055 4225 3090 Output Total 3758 959 3211 Balance 2428 1555 4225 1890 Weight 72.8 kg 72.8 kg Lab Results: Accuchecks Date 09/10/16 Date 09/09/16 Date 09/09/16 Date 09/09/16 Time 07:18 Time 22:00 Time 16:08 Time 11:38 Accucheck Value: 133 Accucheck Value: 213 Accucheck Value: 142 Accucheck Value: 174 Assessment/Plan (1) Pneumonia Current Visit: Yes Status: Acute Qualifiers: Laterality: bilateral Lung location: lower lobe of lung Assessment & Plan: still on O2 was weaned to 2 L NC continue to wean O2 as tolerated continue iv zosyn nebs add prednisone with the increased wheezing and hx of the asthma increase activity as tolerated hopeful for home tomorrow if able to wean from the O2 Code(s): J18.9 - PNEUMONIA, UNSPECIFIED ORGANISM (2) Hypoxia Current Visit: Yes Status: Acute Code(s): R09.02 - HYPOXEMIA (3) Diabetes mellitus Current Visit: Yes Status: Acute Code(s): E11.9 - TYPE 2 DIABETES MELLITUS WITHOUT COMPLICATIONS (4) Seizure disorder Current Visit: Yes Status: Acute Code(s): G40.909 - EPILEPSY, UNSP, NOT INTRACTABLE, WITHOUT STATUS EPILEPTICUS (5) Acute exacerbation of extrinsic asthma Current Visit: Yes Status: Acute Code(s): J45.901 - UNSPECIFIED ASTHMA WITH (ACUTE) EXACERBATION
[2016-09-10] MEDS: ENOXAPARIN SODIUM SQ SCH (09:31)
[2016-09-10] MEDS: FEOSOL 325 MG PO SCH ×2 (09:31→21:22)
[2016-09-10] MEDS: NEURONTIN 300 MG PO SCH ×3 (09:32→21:22)
[2016-09-10] MEDS: ECOTRIN 81 MG PO SCH (09:32)
[2016-09-10] MEDS: Cymbalta 30 MG Capsule PO SCH ×2 (09:33→21:23)
[2016-09-10] MEDS: DELTASONE 20 MG PO SCH (09:33)
[2016-09-10] MEDS: Protonix 40MG Tablet PO SCH ×2 (09:34→21:23)
[2016-09-10] MEDS: MYSOLINE 50MG PO SCH ×3 (09:38→21:23)
[2016-09-10] MEDS: NovoLOG Insulin SQ PRN ×3 (11:56→21:32)
--- NOTE | 2016-09-10 15:22 | PCM.NOTE ---
Date and Time: 09/09/16 1519 Subjective Assessment: late entry note for visit 09/09/16 note was lost note completed 09/10/16. he has no complaints today shortness of breath and cough at times he has not been up much. He has no vomiting he is eating this am without difficulty or choking noted. he is still wearing the oxygen at 4L Objective Exam General Appearance: no apparent distress Neurologic Exam: alert, cooperative Skin Exam: warm, dry Neck Exam: normal inspection, non-tender, supple Respiratory Exam: other (bibasilar rales), No respiratory distress Cardiovascular Exam: regular rate/rhythm, normal heart sounds, murmur Gastrointestinal/Abdomen Exam: soft, normal bowel sounds, No tenderness, No distention Extremity Exam: No calf tenderness OBJECTIVE DATA Vital Signs: Vital Signs - 24 hr Temp Pulse Resp BP Pulse Ox 09/10/16 14:13 93 L 09/10/16 11:28 98.5 F 86 18 98/55 92 L 09/10/16 07:34 98.0 F 80 18 100/58 95 09/10/16 07:03 80 18 95 09/10/16 04:00 98.9 F 65 19 130/80 94 L 09/09/16 23:21 98.7 F 94 H 20 115/74 93 L 09/09/16 19:55 92 H 21 97 09/09/16 19:45 99.5 F 105 H 22 103/59 95 09/09/16 15:58 100.7 F 09/09/16 15:53 100.3 F 103 H 20 103/56 96 Oxygen-Last 24 hours O2 Percentage 3 Liters = 32% O2 Percentage 4 Liters = 36% O2 Percentage 4 Liters = 36% O2 Percentage 4 Liters = 36% Pain Assessment - Last Documented Pain Intensity 0 Pain Scale Used 0-10 Pain Scale Intake and Output: Intake & Output 09/08/16 09/09/16 09/10/16 09/11/16 11:59 11:59 11:59 11:59 Intake Total 2055 4225 3090 Output Total 500 1550 300 Balance 1555 4225 1540 -300 Weight 72.8 kg Lab Results: Accuchecks Date 09/10/16 Date 09/10/16 Date 09/09/16 Date 09/09/16 Time 11:56 Time 07:18 Time 22:00 Time 16:08 Accucheck Value: 231 Accucheck Value: 133 Accucheck Value: 213 Accucheck Value: 142 Assessment/Plan (1) Pneumonia Current Visit: Yes Status: Acute Qualifiers: Laterality: bilateral Lung location: lower lobe of lung Assessment & Plan: continue zosyn wean oxygen as tolerated Code(s): J18.9 - PNEUMONIA, UNSPECIFIED ORGANISM (2) Hypoxia Current Visit: Yes Status: Acute Code(s): R09.02 - HYPOXEMIA (3) Diabetes mellitus Current Visit: Yes Status: Acute Code(s): E11.9 - TYPE 2 DIABETES MELLITUS WITHOUT COMPLICATIONS (4) Seizure disorder Current Visit: Yes Status: Acute Code(s): G40.909 - EPILEPSY, UNSP, NOT INTRACTABLE, WITHOUT STATUS EPILEPTICUS (5) Acute exacerbation of extrinsic asthma Current Visit: Yes Status: Acute Code(s): J45.901 - UNSPECIFIED ASTHMA WITH (ACUTE) EXACERBATION
[2016-09-10] MEDS: Flomax 0.4 MG PO SCH (21:23)
[2016-09-10] MEDS: ZOCOR 20MG PO SCH (21:23)
[2016-09-10] MEDS: Topamax 25 MG PO SCH (21:23)
[2016-09-10] MEDS: ZOLOFT 50 MG TABLET PO SCH (21:23)
[2016-09-10] MEDS: Zithromax 500 MG/ 250 ML NaCl Premix 250 ML IV SCH (21:24)
[2016-09-11] MEDS: Zosyn 3.375GM/100 Ml D5W 100 ML IV SCH ×2 (00:16→05:14)
[2016-09-11 07:00] VITALS: BP 139/70; PULSE 72
[2016-09-11] MEDS: NovoLOG Insulin SQ PRN (07:30)
[2016-09-11] MEDS: Advair Hfa 115/21 Common canister IH SCH (08:31)
[2016-09-11] MEDS: Spiriva 18 Mcg/Cap Inhaler IH SCH (08:32)
[2016-09-11 08:36] VITALS: O2SAT 93
[2016-09-11] MEDS: MYSOLINE 50MG PO SCH (08:37)
[2016-09-11] MEDS: Cymbalta 30 MG Capsule PO SCH (08:37)
[2016-09-11] MEDS: NEURONTIN 300 MG PO SCH (08:37)
[2016-09-11] MEDS: FEOSOL 325 MG PO SCH (08:38)
[2016-09-11] MEDS: ECOTRIN 81 MG PO SCH (08:38)
[2016-09-11] MEDS: Protonix 40MG Tablet PO SCH (08:38)
[2016-09-11] MEDS: DELTASONE 20 MG PO SCH (08:38)
--- NOTE | 2016-09-11 08:41 | PCM.DCORD ---
- Discharge Discharge Date: 09/11/16 Disposition: Home, Self-Care Condition: Stable Prescriptions: New Amoxicillin/Potassium Clav [Augmentin 875-125 Tablet] 875 mg PO BID #14 tablet Prednisone 20 mg [Deltasone 20 mg] 40 mg PO DAILY #10 tablet Continue Sertraline HCl 100 mg PO HS Gabapentin 600 mg PO TID Metformin HCl 500 mg [Glucophage 500 MG] 500 mg PO BID Omeprazole 40 mg PO BID Fluticasone/Salmeterol [Advair 250-50 Diskus] 1 puff IH BID Tiotropium [place] Inhaler [Spiriva 18 Mcg/Cap Inhaler] 18 mcg IH DAILY Aspirin [Aspir 81] 81 mg PO DAILY Primidone 50 MG [Mysoline 50Mg] 50 mg PO TID Mirabegron [Myrbetriq] 50 mg PO HS Ferrous Sulfate 325 mg [Feosol 325 mg] 325 mg PO BID Tamsulosin HCl 0.4 mg [Flomax 0.4 MG] 0.4 mg PO HS Duloxetine HCl [Cymbalta] 60 mg PO BID Divalproex Sodium [Depakote] 500 mg PO TID Multivitamin [Multivitamins] 1 each PO DAILY Albuterol Sulfate [Proair Hfa] 2 puff IH Q4H PRN PRN PRN Reason: Shortness Of Breath/Wheezing Cholecalciferol (Vitamin D3) [Vitamin D3] 1,000 unit PO DAILY Naproxen [Naprosyn] 500 mg PO BID Topiramate 25 mg [Topamax 25 MG] 25 mg PO HS Atorvastatin Calcium 40 mg PO HS Hydrocodone/APAP 10/325 mg [[place] 10/325 MG Tablet] 1 tab PO Q4H PRN PRN PRN Reason: Pain Exenatide Microspheres [Bydureon Pen] 2 mg SQ WEEKLY Albuterol Sulfate 0.63 mg IH TID Sennosides [Senna Laxative] 8.6 mg PO UD PRN PRN Reason: Constipation Follow up with: NORBERT STATON [Primary Care Provider] - 09/17/16 10:30 am Forms: Patient Portal Information
--- NOTE | 2016-09-11 17:43 | PCM.DS ---
Discharge Summary Date of Admission: 09/07/16 00:14 Date of Discharge: 09/11/16 Admitting Physician: JAROCHO JOHANSEN Consults: Consults on Case 09/07/16 14:09 Nutritional Consult Primary Care Provider: NORBERT STATON Allergies Allergies No Known Drug Allergies Allergy (Verified 09/06/16 19:25) Hospital Summary - Hospital Course Hospital Course: presented with shortness of breath and high fever found on CT to have bilateral lower lobe pnuemonia. He was having severe hypoxemia initially with venti mask and slowly weaned to room air over the next 4 days where he is doing well now at time of discharge. His symptoms are improved he is eating well now and ambulating on his own without significant dyspnea. He does have history of asthma and was having diffuse wheezing with this as well and responded to some steroids for this. - Vitals & Intake/Output Vital Signs: Vital Signs Temperature 98.2 F 09/11/16 06:58 Pulse Rate 72 09/11/16 06:58 Respiratory Rate 18 09/11/16 06:58 Blood Pressure 139/70 09/11/16 06:58 O2 Sat by Pulse Oximetry 93 L 09/11/16 08:32 Oxygen-Last Documented O2 Percentage 4 Liters = 36% Intake & Output: Intake & Output 09/09/16 09/10/16 09/11/16 09/12/16 11:59 11:59 11:59 11:59 Intake Total 4225 3090 2720 Output Total 1550 2600 Balance 4225 1540 120 Weight 72.8 kg - Lab Result Diagrams: 09/09/16 05:16 09/09/16 05:16 Lab Results-Last 24 Hrs: Accuchecks Date 09/11/16 Date 09/10/16 Time 07:30 Accucheck Value: 266 Accucheck Value: 275 Micro Results-Entire Visit: Accuchecks Date 09/11/16 Date 09/10/16 Time 07:30 Accucheck Value: 266 Accucheck Value: 275 - Procedures and Test Procedures and Tests throughout Hospitalization: Therapy Orders & Screens 09/06/16 22:35 Oxygen VENTI-MASK 50% Comment: Diagnosis: Shortness of Breath 09/07/16 02:14 RT Screen per Nursing Assess ONCE Comment: Protocol Order Physician Instructions: Greater than 3 points order RT Admission Screen Reason For Exam: Triggered on Admission Diagnosis: PNE, ECACERBATION COPD Diagnosis: PNE, ECACERBATION COPD Pneumonia: Yes Home O2: No Asthma: No CHF: No Home CPAP/BIPAP: No Home Nebs/MDI: Yes Total Points: 8 09/07/16 02:53 Respiratory MDI Comment: ROBINAIAR 115/21 BID Diagnosis: PNE, ECACERBATION COPD 09/07/16 03:00 Respiratory MDI Comment: SPIRIVA Diagnosis: PNE, ECACERBATION COPD 09/07/16 03:01 Respiratory MDI Comment: Q4PRN Diagnosis: PNE, ECACERBATION COPD 09/07/16 09:00 PT Screen per Nursing Assess Comment: Protocol Order Physician Instructions: Greater than 3 points order PT Admission Screenin Reason For Exam: Triggered on Admission Diagnosis: PNE, ECACERBATION COPD Open Wound/Cellutlitis/Pressure Ulcers: No Acute Fx/ORIF/Change in wt bearing status: No Severe MUSCULOSKELETAL pain: No ADL Dysfunction: Yes Acute CVA w/Hemiparesis/Hemiplegia: No Decreased Functional Mobility/Strength: Yes Sprain/Strain: No Acute Post-op Mobility Dysfunction: No Total Points: 4 ST Screen per Nursing Assess Comment: Protocol Order Physician Instructions: Greater than [address] Admission Screening Reason For Exam: Triggered on Admission Diagnosis: PNE, ECACERBATION COPD CVA/Dyshpagia/Aphasia: No Cognitive Deficits: No Dehydration/Nutrition Deficit: No Reflux: Yes Oral-Motor Difficulties: Yes Pneumonia: Yes Senior Care Resident: No Total Points: 11 09/07/16 20:52 Respiratory Nebulizer Comment: ALBUTEROL Q4PRN, XOPENEX Q2PRN FOR SOB/WHEEZING Diagnosis: PNE, ECACERBATION COPD 09/07/16 20:53 Oxygen NASAL CANNULA 4 lpm Comment: Diagnosis: PNE, ECACERBATION COPD Discharge Exam General Appearance: no apparent distress Neurologic Exam: alert, cooperative Skin Exam: warm, dry Eye Exam: No scleral icterus, No pale conjunctivae Ears, Nose, Throat Exam: moist mucous membranes Neck Exam: non-tender, supple Respiratory Exam: crackles/rales (bibasilar), wheezing (improved) Cardiovascular Exam: regular rate/rhythm, normal heart sounds, No edema Gastrointestinal/Abdomen Exam: soft, normal bowel sounds, No tenderness, No distention Extremity Exam: normal inspection, No calf tenderness, No pedal edema Back Exam: normal inspection Final Diagnosis/Problem List - Final Discharge Diagnosis/Problem (1) Pneumonia Status: Acute Assessment & Plan: change to po augmentin to complete a 10 day coarse continue prednisone as well with the asthma exacerbation f/u next week in office (2) Hypoxia Status: Acute (3) Diabetes mellitus Status: Acute (4) Seizure disorder Status: Acute (5) Acute exacerbation of extrinsic asthma Status: Acute - Discharge Discharge Date: 09/11/16 Disposition: Home, Self-Care Condition: Stable Prescriptions: New Amoxicillin/Potassium Clav [Augmentin 875-125 Tablet] 875 mg PO BID #14 tablet Prednisone 20 mg [Deltasone 20 mg] 40 mg PO DAILY #10 tablet Continue Sertraline HCl 100 mg PO HS Gabapentin 600 mg PO TID Metformin HCl 500 mg [Glucophage 500 MG] 500 mg PO BID Omeprazole 40 mg PO BID Fluticasone/Salmeterol [Advair 250-50 Diskus] 1 puff IH BID Tiotropium [place] Inhaler [Spiriva 18 Mcg/Cap Inhaler] 18 mcg IH DAILY Aspirin [Aspir 81] 81 mg PO DAILY Primidone 50 MG [Mysoline 50Mg] 50 mg PO TID Mirabegron [Myrbetriq] 50 mg PO HS Ferrous Sulfate 325 mg [Feosol 325 mg] 325 mg PO BID Tamsulosin HCl 0.4 mg [Flomax 0.4 MG] 0.4 mg PO HS Duloxetine HCl [Cymbalta] 60 mg PO BID Divalproex Sodium [Depakote] 500 mg PO TID Multivitamin [Multivitamins] 1 each PO DAILY Albuterol Sulfate [Proair Hfa] 2 puff IH Q4H PRN PRN PRN Reason: Shortness Of Breath/Wheezing Cholecalciferol (Vitamin D3) [Vitamin D3] 1,000 unit PO DAILY Naproxen [Naprosyn] 500 mg PO BID Topiramate 25 mg [Topamax 25 MG] 25 mg PO HS Atorvastatin Calcium 40 mg PO HS Hydrocodone/APAP 10/325 mg [[place] 10/325 MG Tablet] 1 tab PO Q4H PRN PRN PRN Reason: Pain Exenatide Microspheres [Bydureon Pen] 2 mg SQ WEEKLY Albuterol Sulfate 0.63 mg IH TID Sennosides [Senna Laxative] 8.6 mg PO UD PRN PRN Reason: Constipation Instructions: Pneumonia -- Adult Follow up with: NORBERT STATON [Primary Care Provider] - 09/17/16 10:30 am Forms: Discharge Instructions, Patient Portal Information
== END 2016-09-11 10:45 | disposition home or self-care (01) | DRG 194 ==
LOC: ED 18:59 → ICU 09-07 00:14 → MED SURG 09-07 10:15
PROVIDERS: ADMIT Family Medicine; ATTEND Family Medicine
DX: J18.9 Pneumonia, unspecified organism (principal); J45.901 Unspecified asthma with (acute) exacerbation; F79 Unspecified intellectual disabilities; G40.909 Epilepsy, unspecified, not intractable, without status epilepticus; E11.9 Type 2 diabetes mellitus without complications; I10 Essential (primary) hypertension; G62.9 Polyneuropathy, unspecified; M19.90 Unspecified osteoarthritis, unspecified site
CPT/HCPCS: 36000; 36415; 36600; 71010; 71260; 80048; 80053; 81000; 82375; 82803; 82962; 83036; 83605; 84134; 84484; 85025; 85379; 85610; 87040; 93005; 93041; 94640; 94760; 96360; 96361; 96365; 96366; 96368; 96375; 99285; A9270; J0456; J1650; J2543; J2930

== ENCOUNTER 2017-11-14 14:12 | Observation (INO) | payer MEDICARE ==
--- NOTE | 2017-11-14 14:58 | ERPHSYRPT ---
- History of Present Illness Time Seen by Provider: 11/14/17 14:49 Source: patient, family Exam Limitations: no limitations Patient Subjective Stated Complaint: brought in by family for weakness and had "sugar attack" today. has eat today. and foot dr today, pt states he feels like sleeping Triage Nursing Assessment: pt alert, mildly mentally disabled, walked in,skin w/ d/p, resp easy, Physician History: According to his patient had a "sugar attack" at noon, she gave him snack, and checked his blood sugar later, it was 128. He did not improved though, he was "different" had difficulty walking, needed assistance. He was seen by his Aviation Manager today in [facility] and was advised to be "checked". Patient denies any complaints, no headaches, visual changes, focal weakness, no slurred speech , chest pain, SOB, or fever, nausea, vomiting or other complaints. Timing/Duration: today, hour(s) (3) Character of Deficits: general (difuse) Deficits: decrease ability to walk Baseline/Normal Cognition: alert oriented x 3 Current Cognition: alert oriented x 3 Baseline Gait: walks w/o assistance Associated Symptoms: denies symptoms Allergies/Adverse Reactions: No Known Drug Allergies Allergy (Verified 11/14/17 14:26) Home Medications: Fluticasone/Salmeterol [Advair 250-50 Diskus] 1 puff IH BID 01/01/12 [History] Gabapentin 600 mg PO TID 01/01/12 [History] Metformin HCl 500 mg [Glucophage 500 MG] 500 mg PO BID 01/01/12 [History] Omeprazole 40 mg PO BID 01/01/12 [History] Sertraline HCl 100 mg PO HS 01/01/12 [History] Tiotropium [place] Inhaler [Spiriva 18 Mcg/Cap Inhaler] 18 mcg IH DAILY [History] Aspirin [Aspir 81] 81 mg PO DAILY 01/20/12 [History] Divalproex Sodium [Depakote] 500 mg PO TID 03/31/14 [History] Duloxetine HCl [Cymbalta] 60 mg PO BID 03/31/14 [History] Ferrous Sulfate 325 mg [Feosol 325 mg] 325 mg PO BID 03/31/14 [History] Mirabegron [Myrbetriq] 50 mg PO HS 03/31/14 [History] Multivitamin [Multivitamins] 1 each PO DAILY 03/31/14 [History] Primidone 50 MG [Mysoline 50Mg] 50 mg PO TID 03/31/14 [History] Tamsulosin HCl 0.4 mg [Flomax 0.4 MG] 0.4 mg PO HS 03/31/14 [History] Albuterol Sulfate [Proair Hfa] 2 puff IH Q4H PRN PRN 09/06/16 [History] Atorvastatin Calcium 40 mg PO HS 09/06/16 [History] Cholecalciferol (Vitamin D3) [Vitamin D3] 1,000 unit PO DAILY 09/06/16 [History] Exenatide Microspheres [Bydureon Pen] 2 mg SQ WEEKLY 09/06/16 [History] Hydrocodone/APAP 10/325 mg [[place] 10/325 MG Tablet] 1 tab PO Q4H PRN PRN 09/06/16 [History] Naproxen [Naprosyn] 500 mg PO BID 09/06/16 [History] Topiramate 25 mg [Topamax 25 MG] 25 mg PO HS 09/06/16 [History] Albuterol Sulfate 0.63 mg IH TID 09/07/16 [History] Sennosides [Senna Laxative] 8.6 mg PO UD PRN 09/07/16 [History] Hx Tetanus, Diphtheria Vaccination/Date Given: Yes Hx Influenza Vaccination/Date Given: Yes Hx Pneumococcal Vaccination/Date Given: Yes Immunizations Up to Date: Yes - Review of Systems Constitutional: No Symptoms Neurological: Dizziness All Other Systems: Reviewed and Negative - Past Medical History Pertinent Past Medical History: Yes Neurological History: Peripheral Neuropathy, Seizures ENT History: No Pertinent History Cardiac History: Hypertension Respiratory History: Asthma, COPD, Pneumonia Endocrine Medical History: Diabetes Type II Musculoskeletal History: Osteoarthritis GI Medical History: Hernia History: Other Psycho-Social History: Depression, Other Male Reproductive Disorders: No Pertinent History Other Medical History: SEE HX IN CHART, sees urologist. - Past Surgical History Past Surgical History: Yes Neuro Surgical History: No Pertinent History Cardiac: No Pertinent History Respiratory: No Pertinent History Gastrointestinal: Hernia Repair, Other Genitourinary: No Pertinent History Musculoskeletal: No Pertinent History Male Surgical History: No Pertinent History Other Surgical History: right side inguinal hernia surgery 1987. nose operation 1991. ABDOMINAL CYST - Social History Smoking Status: Former smoker How long have you smoked: UNSURE Exposure to second hand smoke: No Drug Use: none Patient Lives Alone: No - Nursing Vital Signs Nursing Vital Signs: Initial Vital Signs Temperature 97.0 F 11/14/17 14:17 Pulse Rate 80 11/14/17 14:17 Respiratory Rate 16 11/14/17 14:17 Blood Pressure 141/81 11/14/17 14:17 O2 Sat by Pulse Oximetry 96 11/14/17 14:17 Pain Scale Pain Intensity 0 - Ethel Coma Scale Best Eye Response ([place]): (4) open spontaneously Best Verbal Response ([place]): (5) oriented Best Motor Response (Ethel): (6) obeys commands Ethel Total: 15 - Physical Exam General Appearance: no apparent distress Eye Exam: bilateral eye: PERRL, EOMI Ears, Nose, Throat Exam: normal ENT inspection Neck Exam: normal inspection, non-tender, supple Respiratory: normal breath sounds, lungs clear, airway intact, No chest tenderness Cardiovascular: regular rate/rhythm, normal heart sounds, normal peripheral pulses, No murmur Gastrointestinal: soft, normal bowel sounds, No tenderness Back Exam: normal inspection, No CVA tenderness, No vertebral tenderness, No rash Extremity Exam: normal inspection Mental Status: alert, oriented x 3, cooperative slasher runner Exam: normal speech, PERRL Coordination/Gait: normal finger to nose, abnormal gait Motor/Sensory: no motor deficit DTR: bicep (R): 3+, bicep (L): 3+, knee (R): 3+, knee (L): 3+, ankle (R): 3+, ankle (L): 3+ Skin Exam: normal color, warm, dry, No rash SpO2 Interpretation: normal SpO2: 96 Oxygen Delivery: Room Air - Course Nursing assessment & vital signs reviewed: Yes EKG Interpreted by Me: RATE (121/min), NORMAL AXIS, Non-specific ST Changes - Radiology Exams Chest X-ray Interpretation: Reviewed by me, Negative - CT Exams Head CT Interpretation: Tele-radiologist Report, No/Intracranial Hemorrhag, Other ( cerebellar atrophy) Ordered Tests: Active Orders 24 hr Category Date Time Status Ambulate Patient ROUTINE Care 11/14/17 14:49 Active Metal Spinner STAT Care 11/14/17 14:50 Active EKG-ER Only STAT Care 11/14/17 14:49 Active IV Insertion STAT Care 11/14/17 14:49 Active Orthostatic Vital Signs STAT Care 11/14/17 14:49 Active CHEST 1 VIEW (PORTABLE) Stat Exams 11/14/17 14:50 Completed HEAD WITHOUT CONTRAST [CT] Stat Exams 11/14/17 14:50 Completed CBC W DIFF Stat Lab 11/14/17 14:55 Completed CMP Stat Lab 11/14/17 14:55 Completed ETHYL ALCOHOL Stat Lab 11/14/17 14:55 Completed MAGNESIUM Stat Lab 11/14/17 14:55 Completed Manual Differential NC Stat Lab 11/14/17 14:55 Completed TROPONIN Q3H Lab 11/14/17 14:55 Completed TROPONIN Q3H Lab 11/14/17 18:00 Ordered TROPONIN Q3H Lab 11/14/17 21:00 Ordered TROPONIN Q3H Lab 11/15/17 00:00 Ordered TROPONIN Q3H Lab 11/15/17 03:00 Ordered UA W/RFX UR CULTURE Stat Lab 11/14/17 14:50 Completed Urine Triage Profile Stat Lab 11/14/17 15:30 Completed Lab/Rad Data: Laboratory Result Diagrams 11/14/17 14:55 11/14/17 14:55 Laboratory Results 11/14/17 11/14/17 11/14/17 Range/Units 15:30 14:55 14:55 WBC (4.0-10.5) K/mm3 RBC (4.1-5.6) M/mm3 Hgb (12.5-18.0) gm/dl Hct (42-50) % MCV (78-100) fl MCH (26-32) pg MCHC (32-36) g/dl RDW (11.5-14.0) % Plt Count (150-450) K/mm3 MPV (6-9.5) fl Absolute Granulocytes (1.4-6.9) Segmented Neutrophils (36.-66.) % Lymphocytes (Manual) (24-44) % Monocytes (Manual) (0.0-12.0) % Eosinophils (Manual) (0.00-3.0) % Basophils (Manual) (0.0-1.0) % Platelet Estimate (NORMAL) RBC Morphology Sodium 139 (137-145) mmol/L Potassium 4.4 (3.5-5.1) mmol/L Chloride 99 (98-107) mmol/L Carbon Dioxide 30 (22-30) mmol/L Anion Gap 14.9 (5-15) MEQ/L BUN 11 (9-20) mg/dL Creatinine 0.70 (0.66-1.25) mg/dL Estimated GFR > 60.0 ML/MIN Glucose 126 H (74-106) mg/dL Calcium 10.2 (8.4-10.2) mg/dL Magnesium 1.5 L (1.6-2.3) mg/dL Total Bilirubin 0.30 (0.2-1.3) mg/dL AST 38 (17-59) U/L ALT 28 (0-50) U/L Alkaline Phosphatase 42 (38-126) U/L Troponin I < 0.012 (0.000-0.034) ng/mL Serum Total Protein 6.8 (6.3-8.2) g/dL Albumin 4.2 (3.5-5.0) g/dL Ur Collection Type Urine Color (YELLOW) Urine Appearance (CLEAR) Urine pH (5-6) Ur Specific [place] (1.005-1.025) Urine Protein (Negative) Urine Ketones (NEGATIVE) Urine Blood (0-5) Perez/ul Urine Nitrite (NEGATIVE) Urine Bilirubin (NEGATIVE) Urine Urobilinogen (0-1) mg/dL Ur Leukocyte Esterase (NEGATIVE) Urine Culture Reflexed (NO) Urine Glucose (NEGATIVE) mg/dL Urine Opiates Level NEGATIVE (NEGATIVE) Ur Methadone NEGATIVE (NEGATIVE) Urine Barbiturates POSITIVE (NEGATIVE) Ur Phencyclidine (PCP) NEGATIVE (NEGATIVE) Urine Amphetamine NEGATIVE (NEGATIVE) U Benzodiazepine Level NEGATIVE (NEGATIVE) Urine Cocaine NEGATIVE (NEGATIVE) Urine Marijuana (THC) NEGATIVE (NEGATIVE) Ethyl Alcohol < 10 H (0-9) mg/dL Specimen Received 11/14/17 11/14/17 Range/Units 14:55 14:50 WBC 11.7 H (4.0-10.5) K/mm3 RBC 4.53 (4.1-5.6) M/mm3 Hgb 13.9 (12.5-18.0) gm/dl Hct 42.2 (42-50) % MCV 93.2 (78-100) fl MCH 30.7 (26-32) pg MCHC 32.9 (32-36) g/dl RDW 13.2 (11.5-14.0) % Plt Count 156 (150-450) K/mm3 MPV 11.6 H (6-9.5) fl Absolute Granulocytes 4.1 (1.4-6.9) Segmented Neutrophils 35 L (36.-66.) % Lymphocytes (Manual) 58 H (24-44) % Monocytes (Manual) 2 (0.0-12.0) % Eosinophils (Manual) 4 H (0.00-3.0) % Basophils (Manual) 1 (0.0-1.0) % Platelet Estimate NORMAL (NORMAL) RBC Morphology NORMAL Sodium (137-145) mmol/L Potassium (3.5-5.1) mmol/L Chloride (98-107) mmol/L Carbon Dioxide (22-30) mmol/L Anion Gap (5-15) MEQ/L BUN (9-20) mg/dL Creatinine (0.66-1.25) mg/dL Estimated GFR ML/MIN Glucose (74-106) mg/dL Calcium (8.4-10.2) mg/dL Magnesium (1.6-2.3) mg/dL Total Bilirubin (0.2-1.3) mg/dL AST (17-59) U/L ALT (0-50) U/L Alkaline Phosphatase (38-126) U/L Troponin I (0.000-0.034) ng/mL Serum Total Protein (6.3-8.2) g/dL Albumin (3.5-5.0) g/dL Ur Collection Type VOID Urine Color YELLOW (YELLOW) Urine Appearance CLEAR (CLEAR) Urine pH 6.0 (5-6) Ur Specific [place] 1.015 (1.005-1.025) Urine Protein NEGATIVE (Negative) Urine Ketones NEGATIVE (NEGATIVE) Urine Blood NEGATIVE (0-5) Perez/ul Urine Nitrite NEGATIVE (NEGATIVE) Urine Bilirubin NEGATIVE (NEGATIVE) Urine Urobilinogen NORMAL (0-1) mg/dL Ur Leukocyte Esterase NEGATIVE (NEGATIVE) Urine Culture Reflexed NO (NO) Urine Glucose NEGATIVE (NEGATIVE) mg/dL Urine Opiates Level (NEGATIVE) Ur Methadone (NEGATIVE) Urine Barbiturates (NEGATIVE) Ur Phencyclidine (PCP) (NEGATIVE) Urine Amphetamine (NEGATIVE) U Benzodiazepine Level (NEGATIVE) Urine Cocaine (NEGATIVE) Urine Marijuana (THC) (NEGATIVE) Ethyl Alcohol (0-9) mg/dL Specimen Received 1514 - Progress Progress: unchanged Progress Note: 11/14/17 16:46 Pt has been ambulating with help, did not deviate, no focal weakness, headaches , results discussed with him and his , called Dr Staton, informed about patient's results and current condition, he agreed to admit him for Observation with Dizziness, POssible TIA . Discussed with : Preeti Will see patient in: hospital (observation) - Departure Time of Disposition: 16:48 Departure Disposition: Observation Clinical Impression: TIA involving vertebral artery Condition: Stable Critical Care Time: No Referrals: NORBERT STATON [Primary Care Provider] -
[2017-11-14 15:02] LABS: Hematocrit 42.2 % (42-50); Hemoglobin 13.9 gm/dl (12.5-18.0); Mean Cell Volume 93.2 fl (78-100); Mean Corpuscular Hemoglobin 30.7 pg (26-32); Mean Corpuscular Hgb Concent. 32.9 g/dl (32-36); Mean Platelet Volume 11.6 fl (6-9.5); Platelet Count 156 K/mm3 (150-450); Red Blood Count 4.53 M/mm3 (4.1-5.6); Red Cell Distribution Width 13.2 % (11.5-14.0); White Blood Count 11.7 K/mm3 (4.0-10.5)
--- NOTE | 2017-11-14 15:08 | XRAY ---
Indication: Cough. Comparison: September 06, 2016. Portable chest demonstrates stable left base infiltrate/atelectasis and interval right lung base clearing. Heart is not enlarged. No new/acute findings.
[2017-11-14 15:18] LABS: ALBUMIN 4.2 g/dL (3.5-5.0); ALKALINE PHOSPHATASE 42 U/L (38-126); ANION GAP 14.9 MEQ/L (5-15); BLOOD UREA NITROGEN 11 mg/dL (9-20); CHLORIDE 99 mmol/L (98-107); Calcium 10.2 mg/dL (8.4-10.2); Carbon Dioxide 30 mmol/L (22-30); Glucose 126 mg/dL (74-106); Potassium 4.4 mmol/L (3.5-5.1); SGOT/AST 38 U/L (17-59); SGPT/ALT 28 U/L (0-50); SODIUM 139 mmol/L (137-145); Total Protein 6.8 g/dL (6.3-8.2)
[2017-11-14 15:20] LABS: Appearance CLEAR (CLEAR); Specific Gravity 1.015 (1.005-1.025)
[2017-11-14 15:21] LABS: Bilirubin NEGATIVE (NEGATIVE); Blood NEGATIVE Ery/ul (0-5); Glucose NEGATIVE (NEGATIVE); Ketones NEGATIVE (NEGATIVE); Leukocyte Esterase NEGATIVE (NEGATIVE); Nitrite NEGATIVE (NEGATIVE); Protein,Urine Dip NEGATIVE (Negative); Urobilinogen NORMAL mg/dL (0-1)
[2017-11-14 15:25] LABS: ETHYL ALCOHOL < 10 mg/dL (0-9)
[2017-11-14 15:33] LABS: Basophil 1 % (0.0-1.0); Eosinophil 4 % (0.00-3.0); Lymphocytes 58 % (24-44); Monocyte 2 % (0.0-12.0); Neutrophils 35 % (36.-66.); Platelet Estimate NORMAL (NORMAL); Total Cells Counted 100
[2017-11-14 15:34] LABS: Granulocyte Absolute (ANC) 4.1 (1.4-6.9)
--- NOTE | 2017-11-14 15:53 | XRAY ---
Indication: Weakness. Multiple contiguous axial images obtained through the head without contrast. Comparison: January 04, 2011. There is again diffuse cerebellar atrophy. No acute intracranial hemorrhage, abnormal extra-axial fluid collection, or mass effect. Fourth ventricle is midline without hydrocephalus. Bony calvarium intact. Minimal left maxillary and bilateral ethmoid sinus mucosal thickening without fluid level layering. There has been bilateral maxillary sinus antrectomy. Remaining visualized paranasal sinuses and mastoid air cells are clear. Impression: 1. Stable cerebellar atrophy. 2. No new or acute intracranial abnormalities. 3. Incidental paranasal sinus disease. CTDI 70.55
[2017-11-14 16:06] LABS: Amphetamine,Urine NEGATIVE (NEGATIVE); Barbiturate,Urine POSITIVE (NEGATIVE); Benzodiazepine,Urine NEGATIVE (NEGATIVE); Cocaine,Urine NEGATIVE (NEGATIVE); Methadone,Urine NEGATIVE (NEGATIVE); Opiate,Urine NEGATIVE (NEGATIVE); PCP,Urine NEGATIVE (NEGATIVE); THC,Urine NEGATIVE (NEGATIVE)
[2017-11-14] MEDS ORDERED: BABY ASPIRIN 81 MG CHEW PO ONE (16:45)
[2017-11-14] MEDS ORDERED: TYLENOL 325 MG PO PRN (16:49)
[2017-11-14] MEDS ORDERED: BABY ASPIRIN 81 MG CHEW ONE (16:51)
[2017-11-14] MEDS ORDERED: PROVENTIL 2.5 MG/3 ML NEB IH ONE (18:36)
[2017-11-14] MEDS: PROVENTIL 2.5 MG/3 ML NEB IH SCH (19:22)
[2017-11-14] MEDS: Advair Hfa 115/21 Common canister IH SCH (19:23)
[2017-11-14] MEDS ORDERED: XANAX 1 MG PO PRN (20:15)
[2017-11-14] MEDS ORDERED: Norco 10/325 MG Tablet PO PRN (20:38)
[2017-11-14] MEDS ORDERED: LIPITOR 40MG PO SCH (22:00)
[2017-11-14] MEDS ORDERED: Flomax 0.4 MG PO SCH (22:00)
[2017-11-14] MEDS ORDERED: Naprosyn 500 MG PO SCH (22:00)
[2017-11-14] MEDS ORDERED: Protonix 40MG Tablet PO SCH (22:00)
[2017-11-14] MEDS ORDERED: ZOLOFT 50 MG TABLET PO SCH (22:00)
[2017-11-14] MEDS ORDERED: Naprosyn 500 MG ONE (22:10)
[2017-11-14] MEDS ORDERED: ZOCOR 20MG ONE (22:13)
[2017-11-14] MEDS: NEURONTIN 300 MG PO SCH (22:20)
[2017-11-14] MEDS: FEOSOL 325 MG PO SCH (22:21)
[2017-11-14] MEDS: Cymbalta 30 MG Capsule PO SCH (22:21)
[2017-11-14] MEDS: MYSOLINE 50MG PO SCH (22:22)
[2017-11-15] MEDS: PROVENTIL 2.5 MG/3 ML NEB IH SCH ×2 (06:20→13:20)
[2017-11-15] MEDS: Advair Hfa 115/21 Common canister IH SCH (06:20)
[2017-11-15] MEDS: FEOSOL 325 MG PO SCH (07:58)
[2017-11-15] MEDS: NEURONTIN 300 MG PO SCH (07:58)
[2017-11-15] MEDS: MYSOLINE 50MG PO SCH ×2 (07:58→14:41)
[2017-11-15] MEDS: Cymbalta 30 MG Capsule PO SCH (07:58)
[2017-11-15] MEDS ORDERED: Glucophage 500 MG PO SCH (08:00)
[2017-11-15] MEDS ORDERED: Spiriva 18 Mcg/Cap Inhaler IH SCH (10:00)
[2017-11-15] MEDS ORDERED: Protonix 40MG Tablet PO SCH (10:00)
[2017-11-15 13:41] VITALS: PULSE 82; O2SAT 97
[2017-11-15] MEDS ORDERED: SENOKOT 8.6 MG PO PRN (15:40)
[2017-11-15] MEDS ORDERED: Ventolin Hfa MDI IH PRN (15:40)
[2017-11-15] MEDS ORDERED: PROVENTIL COMMON CANISTER IH PRN (15:45)
[2017-11-15 16:00] VITALS: BP 135/71
[2017-11-15] MEDS ORDERED: MEDICATION INTERVENTION MC SCH (16:15)
--- NOTE | 2017-11-15 16:27 | PCM.SSS ---
History of Present Illness - Chief Complaint Chief Complaint: TIA involving vertebral artery History of Present Illness: is a 62 year old male with developmental disability Yesterday he appeared to be hypoglycemic to his sister - she gave him something to eat and his BS was 128. After that he went to to the brace store. He was acting "really funny" in the office, was confused, had no energy/weak, looked pale, it worried her. She brought him in to rule out any electrolyte imbalance. Denies any slurred speech or inability to use his extremities. No issues since admission. CT head and CXR were non acute. Electrolytes were fine. When he walks, there is a "jerk" per his sister. he has chronic leg issues and per Dr. Staton's notes he has lumbar degeneration. - Review of Systems Constitutional: Fatigue, Weakness Musculoskeletal: Arthralgias All Other Systems: Reviewed and Negative (unsure the reliability of this ROS, taken from pt) Medications & Allergies Home Medications: Home Medication List Fluticasone/Salmeterol [Advair 250-50 Diskus] 1 puff IH BID 01/01/12 [History Confirmed 11/14/17] Gabapentin 600 mg PO BID 01/01/12 [History Confirmed 11/14/17] Metformin HCl 500 mg [Glucophage 500 MG] 500 mg PO BID 01/01/12 [History Confirmed 11/14/17] Omeprazole 40 mg PO BID 01/01/12 [History Confirmed 11/14/17] Sertraline HCl 100 mg PO HS 01/01/12 [History Confirmed 11/14/17] Tiotropium [place] Inhaler [Spiriva 18 Mcg/Cap Inhaler] 18 mcg IH DAILY [History Confirmed 11/14/17] Aspirin [Aspir 81] 81 mg PO DAILY 01/20/12 [History Confirmed 11/14/17] Divalproex Sodium [Depakote] 500 mg PO TID 03/31/14 [History Confirmed 11/14/17] Duloxetine HCl [Cymbalta] 60 mg PO BID 03/31/14 [History Confirmed 11/14/17] Ferrous Sulfate 325 mg [Feosol 325 mg] 325 mg PO BID 03/31/14 [History Confirmed 11/14/17] Mirabegron [Myrbetriq] 50 mg PO HS 03/31/14 [History Confirmed 11/14/17] Multivitamin [Multivitamins] 1 each PO DAILY 03/31/14 [History Confirmed ] Primidone 50 MG [Mysoline 50Mg] 50 mg PO TID 03/31/14 [History Confirmed ] Tamsulosin HCl 0.4 mg [Flomax 0.4 MG] 0.4 mg PO HS 03/31/14 [History Confirmed 11/14/17] Albuterol Sulfate [Proair Hfa] 2 puff IH Q4H PRN PRN 09/06/16 [History Confirmed 11/14/17] Atorvastatin Calcium 40 mg PO HS 09/06/16 [History Confirmed 11/14/17] Cholecalciferol (Vitamin D3) [Vitamin D3] 1,000 unit PO DAILY 09/06/16 [History Confirmed 11/14/17] Exenatide Microspheres [Bydureon Pen] 2 mg SQ WEEKLY 09/06/16 [History Confirmed 11/14/17] Hydrocodone/APAP 10/325 mg [[place] 10/325 MG Tablet] 1 tab PO Q4H PRN PRN 09/06/16 [History Confirmed 11/14/17] Naproxen [Naprosyn] 500 mg PO BID 09/06/16 [History Confirmed 11/14/17] Albuterol Sulfate 0.63 mg IH TID 09/07/16 [History Confirmed 11/14/17] Sennosides [Senna Laxative] 8.6 mg PO UD PRN 09/07/16 [History Confirmed ] Alprazolam 1 mg [Xanax 1 mg] 1 mg PO BID PRN 11/14/17 [History Confirmed 11/15/17] Allergies/Adverse Reactions: Allergies Allergy/AdvReac Type Severity Reaction Status Date / Time No Known Drug Allergies Allergy Verified 11/14/17 14:26 - Past Medical History Past Medical History: Yes Neurological History: Peripheral Neuropathy, Seizures ENT History: No Pertinent History Cardiac History: Hypertension Respiratory History: Asthma, COPD, Pneumonia Endocrine Medical History: Diabetes Type II Musculoskelatal History: Osteoarthritis GI Medical History: Hernia History: Other Pyscho-Social History: Depression, Other Male Reproductive Disorders: No Pertinent History Comment: SEE HX IN CHART, sees urologist. - Past Surgical History Past Surgical History: Yes Neuro Surgical History: No Pertinent History Cardiac History: No Pertinent History Respiratory Surgery: No Pertinent History GI Surgical History: Hernia Repair, Other Genitourinary Surgical Hx: No Pertinent History Musculskeletal Surgical Hx: No Pertinent History Male Surgical History: No Pertinent History Other Surgical History: right side inguinal hernia surgery 1987. nose operation 1991. ABDOMINAL CYST - Social History Smoking Status: Former smoker How long have you smoked: UNSURE Exposure to second hand smoke: No Alcohol: None Drug Use: none - Physical Exam Vital Signs: Vital Signs - 24 hr Temp Pulse Resp BP Pulse Ox 11/15/17 15:59 98.2 F 82 18 135/71 97 11/15/17 13:39 82 18 97 11/15/17 11:42 98.1 F 80 18 110/77 96 11/15/17 07:28 97.7 F 77 18 122/70 94 L 11/15/17 06:54 87 18 92 L 11/15/17 04:00 97.7 F 77 18 128/72 93 L 11/15/17 00:00 97.9 F 83 19 143/67 92 L 11/14/17 20:00 97.8 F 77 20 165/76 94 L 11/14/17 19:22 73 20 95 11/14/17 17:50 93 L 11/14/17 17:47 97.8 F 77 20 165/76 94 L 11/14/17 17:24 76 16 141/79 95 11/14/17 16:49 96 General Appearance: no apparent distress, alert Neurologic Exam: oriented x 3, cooperative Results - Labs Lab/Micro Results: Accuchecks Date 11/15/17 Date 11/15/17 Time 11:30 Time 07:30 Accucheck Value: 107 Accucheck Value: 100 Accucheck Value: 97 Lab Results-Last 24 Hours 11/14/17 11/14/17 11/15/17 Range/Units 18:00 21:00 00:22 Troponin I < 0.012 < 0.012 < 0.012 (0.000-0.034) ng/mL 11/15/17 Range/Units 03:13 Troponin I < 0.012 (0.000-0.034) ng/mL Accuchecks Date 11/15/17 Date 11/15/17 Time 11:30 Time 07:30 Accucheck Value: 107 Accucheck Value: 100 Accucheck Value: 97 - Other Procedures and Tests Respiratory Therapy 11/14/17 19:00 Respiratory MDI BID Respiratory Nebulizer TID 11/15/17 10:00 Respiratory MDI DAILY Assessment/Plan (1) Weakness Current Visit: Yes Status: Acute Assessment & Plan: appears resolved. Unsure etiology. Was admitted under TIA, but asx here and no clear hx TIA sx. Will have pt f/u with Dr. Staton next week to determine need for further testing. Code(s): R53.1 - WEAKNESS (2) Diabetes mellitus Current Visit: No Status: Chronic Qualifiers: Diabetes mellitus type: type 2 Diabetes mellitus long-term insulin use: without long-term use Diabetes mellitus complication status: without complication Qualified Code(s): E11.9 - Type 2 diabetes mellitus without complications Code(s): E11.9 - TYPE 2 DIABETES MELLITUS WITHOUT COMPLICATIONS (3) Seizure disorder Current Visit: No Status: Chronic Code(s): G40.909 - EPILEPSY, UNSP, NOT INTRACTABLE, WITHOUT STATUS EPILEPTICUS (4) Leg pain Current Visit: Yes Status: Acute Assessment & Plan: bilat; likely due to degenerative disc disease. Sister Sharon voiced interest in PT, which I think is reasonable, so I left a message for Dr. Staotn's office to contact her about it on Friday. (5) Gait abnormality Current Visit: Yes Status: Chronic Assessment & Plan: quite unsteady, may benefit from PT. Code(s): R26.9 - UNSPECIFIED ABNORMALITIES OF GAIT AND MOBILITY Hospital Summary - Hospital Course Hospital Course: Pt is 62 yo male, developmentally disabled, admitted after acting "funny" (weak ) when out. Brought to Er to rule out any electrolyte abnormality, etc. Was thought to possibly have had a TIA; however no sx here and no clear hx symptoms from him or his sister. Unsure etiology of the episode but I do not think it was a TIA. He will go home on his previous asa dose of 81mg/d. Will f/u with Dr. Staton in the office regarding need for further testing. Dr. Staton's office to call pt's sister re: possible physical therapy for his gait abnormity. - Vitals & Intake/Output Vital Signs: Vital Signs Temperature 98.2 F 11/15/17 15:59 Pulse Rate 82 11/15/17 15:59 Respiratory Rate 18 11/15/17 15:59 Blood Pressure 135/71 11/15/17 15:59 O2 Sat by Pulse Oximetry 97 11/15/17 15:59 Intake & Output: Intake & Output 11/13/17 11/14/17 11/15/17 11/16/17 11:59 11:59 11:59 11:59 Intake Total 2900 580 Balance 2900 580 Weight 67.4 kg - Lab Result Diagrams: 11/14/17 14:55 11/14/17 14:55 Lab Results-Last 24 Hrs: Accuchecks Date 11/15/17 Date 11/15/17 Time 11:30 Time 07:30 Accucheck Value: 107 Accucheck Value: 100 Accucheck Value: 97 Lab Results-Last 24 Hours 11/14/17 11/14/17 11/15/17 Range/Units 18:00 21:00 00:22 Troponin I < 0.012 < 0.012 < 0.012 (0.000-0.034) ng/mL 11/15/17 Range/Units 03:13 Troponin I < 0.012 (0.000-0.034) ng/mL Micro Results-Entire Visit: Accuchecks Date 11/15/17 Date 11/15/17 Time 11:30 Time 07:30 Accucheck Value: 107 Accucheck Value: 100 Accucheck Value: 97 - Procedures and Test Procedures and Tests throughout Hospitalization: Therapy Orders & Screens 11/14/17 19:00 Respiratory MDI BID Comment: ADVAIR 115/ 2 PUFFS BID Diagnosis: TIA involving vertebral artery Respiratory Nebulizer TID Comment: ALBUTEROL TID Diagnosis: TIA involving vertebral artery 11/15/17 10:00 Respiratory MDI DAILY Comment: SPIRIVA 1 CAPSULE DAILY Diagnosis: TIA involving vertebral artery - Discharge Disposition: Home, Self-Care Condition: Stable Prescriptions: Continue Sertraline HCl 100 mg PO HS Gabapentin 600 mg PO BID Metformin HCl 500 mg [Glucophage 500 MG] 500 mg PO BID Omeprazole 40 mg PO BID Fluticasone/Salmeterol [Advair 250-50 Diskus] 1 puff IH BID Tiotropium [place] Inhaler [Spiriva 18 Mcg/Cap Inhaler] 18 mcg IH DAILY Aspirin [Aspir 81] 81 mg PO DAILY Primidone 50 MG [Mysoline 50Mg] 50 mg PO TID Mirabegron [Myrbetriq] 50 mg PO HS Ferrous Sulfate 325 mg [Feosol 325 mg] 325 mg PO BID Tamsulosin HCl 0.4 mg [Flomax 0.4 MG] 0.4 mg PO HS Duloxetine HCl [Cymbalta] 60 mg PO BID Divalproex Sodium [Depakote] 500 mg PO TID Multivitamin [Multivitamins] 1 each PO DAILY Albuterol Sulfate [Proair Hfa] 2 puff IH Q4H PRN PRN PRN Reason: Shortness Of Breath/Wheezing Cholecalciferol (Vitamin D3) [Vitamin D3] 1,000 unit PO DAILY Naproxen [Naprosyn] 500 mg PO BID Atorvastatin Calcium 40 mg PO HS Hydrocodone/APAP 10/325 mg [[place] 10/325 MG Tablet] 1 tab PO Q4H PRN PRN PRN Reason: Pain Exenatide Microspheres [Bydureon Pen] 2 mg SQ WEEKLY Albuterol Sulfate 0.63 mg IH TID Sennosides [Senna Laxative] 8.6 mg PO UD PRN PRN Reason: Constipation Alprazolam 1 mg [Xanax 1 mg] 1 mg PO BID PRN PRN Reason: Anxiety Follow up with: NORBERT STATON [Primary Care Provider] - 11/21/17 1:15 pm
[2017-11-15] MEDS ORDERED: ZOCOR 20MG PO SCH (22:00)
[2017-11-15] MEDS ORDERED: NON-FORMULARY ITEM (Mirabegron [Myrbetriq] 50 MG) PO SCH (22:00)
[2017-11-16] MEDS ORDERED: ECOTRIN 81 MG PO SCH (10:00)
== END 2017-11-15 17:50 | disposition home or self-care (01) ==
LOC: ED 14:12 → MED SURG 17:30
PROVIDERS: ADMIT Family Medicine; ATTEND Family Medicine
DX: R53.1 Weakness (principal); E11.9 Type 2 diabetes mellitus without complications; Z79.4 Long term (current) use of insulin; G40.909 Epilepsy, unspecified, not intractable, without status epilepticus; M79.606 Pain in leg, unspecified; R26.9 Unspecified abnormalities of gait and mobility; J44.9 Chronic obstructive pulmonary disease, unspecified; I10 Essential (primary) hypertension; G62.9 Polyneuropathy, unspecified; J45.909 Unspecified asthma, uncomplicated; F32.9 Major depressive disorder, single episode, unspecified; M19.90 Unspecified osteoarthritis, unspecified site; F41.9 Anxiety disorder, unspecified; Z79.899 Other long term (current) drug therapy
CPT/HCPCS: 36000; 36415; 70450; 71045; 80053; 80307; 81002; 82962; 83735; 84484; 85025; 93005; 93041; 93268; 94150; 94640; 94760; 99285; A9270-GY; G0378; G0480

== ENCOUNTER 2018-01-17 14:38 | Emergency (ER) | payer MEDICARE ==
[2018-01-17] MEDS ORDERED: VERSED 5 MG/5 ML IV ONE (14:39)
[2018-01-17] MEDS ORDERED: Sodium Chloride 0.9% 1000 ML 1,000 ML IV SCH (14:45)
--- NOTE | 2018-01-17 14:52 | ERPHSYRPT ---
- History of Present Illness Time Seen by Provider: 01/17/18 14:46 Source: EMS Exam Limitations: clinical condition Physician History: 62-year-old white male with history of peripheral neuropathy, seizures, high blood pressure, COPD, asthma, pneumonia, diabetes type 2 Patient is brought by medics patient apparently with multiple bee stings patient apparently became apneic prior to arrival was intubated by medics. Patient had received Solu-Medrol, Benadryl, epinephrine prior to arrival. On arrival patient with multiple bee stings on his face which are being removed by the nurses. Patient is a somewhat agitated he is intubated patient with bilateral breath sounds. Through ET tube. Past medical history includes peripheral neuropathy, seizures, high blood pressure, COPD, asthma, pneumonia, diabetes type 2, osteoarthritis, hernia, depression. Past surgical history includes hernia repair, right inguinal hernia, nose surgery, abdominal cyst Timing/Duration: today (just prior to arrival) Severity: severe Modifying Factors: Improves With: other (patient became apneic and was intubaed prior to arrival) Associated Symptoms: other (Patient became apneic and was intubated prior to arrival, severe allergic reaction), No nausea, No vomiting, No abdominal pain, No shortness of breath, No heartburn, No diaphoresis, No cough, No chills, No chest pain, No fever, No headaches, No loss of appetite, No malaise, No rash, No syncope, No seizure, No weakness Allergies/Adverse Reactions: bee venom protein (honey bee) Allergy (Verified 01/17/18 15:23) Home Medications: Fluticasone/Salmeterol [Advair 250-50 Diskus] 1 puff IH BID 01/01/12 [History] Gabapentin 600 mg PO BID 01/01/12 [History] Metformin HCl 500 mg [Glucophage 500 MG] 500 mg PO BID 01/01/12 [History] Omeprazole 40 mg PO BID 01/01/12 [History] Sertraline HCl 100 mg PO HS 01/01/12 [History] Tiotropium [place] Inhaler [Spiriva 18 Mcg/Cap Inhaler] 18 mcg IH DAILY [History] Aspirin [Aspir 81] 81 mg PO DAILY 01/20/12 [History] Divalproex Sodium [Depakote] 500 mg PO TID 03/31/14 [History] Duloxetine HCl [Cymbalta] 60 mg PO BID 03/31/14 [History] Ferrous Sulfate 325 mg [Feosol 325 mg] 325 mg PO BID 03/31/14 [History] Mirabegron [Myrbetriq] 50 mg PO HS 03/31/14 [History] Multivitamin [Multivitamins] 1 each PO DAILY 03/31/14 [History] Primidone 50 MG [Mysoline 50Mg] 50 mg PO TID 03/31/14 [History] Tamsulosin HCl 0.4 mg [Flomax 0.4 MG] 0.4 mg PO HS 03/31/14 [History] Albuterol Sulfate [Proair Hfa] 2 puff IH Q4H PRN PRN 09/06/16 [History] Cholecalciferol (Vitamin D3) [Vitamin D3] 1,000 unit PO DAILY 09/06/16 [History] Exenatide Microspheres [Bydureon Pen] 2 mg SQ WEEKLY 09/06/16 [History] Hydrocodone/APAP 10/325 mg [[place] 10/325 MG Tablet] 1 tab PO Q4H PRN PRN 09/06/16 [History] Naproxen [Naprosyn] 500 mg PO BID 09/06/16 [History] Albuterol Sulfate 0.63 mg IH TID 09/07/16 [History] Sennosides [Senna Laxative] 8.6 mg PO UD PRN 09/07/16 [History] Alprazolam 1 mg [Xanax 1 mg] 1 mg PO BID PRN 11/14/17 [History] Hx Tetanus, Diphtheria Vaccination/Date Given: Yes Hx Influenza Vaccination/Date Given: Yes Hx Pneumococcal Vaccination/Date Given: Yes - Review of Systems Constitutional: No Fever, No Chills Eyes: No Symptoms Ears, Nose, & Throat: No Symptoms, Other (Patient intubated) Respiratory: Dyspnea, Other (patient became apneic and was intubated prior to arrival) Cardiac: No Chest Pain, No Edema, No Syncope Abdominal/Gastrointestinal: No Abdominal Pain, No Nausea, No Vomiting, No Diarrhea Genitourinary Symptoms: No Dysuria Musculoskeletal: No Back Pain, No Neck Pain Skin: Other (multiple bee stings, skin erythematous) Neurological: No Dizziness, No Focal Weakness, No Sensory Changes Psychological: No Symptoms Endocrine: No Symptoms All Other Systems: Unable due to condition - Past Medical History Pertinent Past Medical History: Yes Neurological History: Seizures ENT History: No Pertinent History Cardiac History: Hypertension Respiratory History: Asthma Endocrine Medical History: Diabetes Type II Musculoskeletal History: Osteoarthritis GI Medical History: Hernia History: Other Psycho-Social History: Depression, Other Male Reproductive Disorders: No Pertinent History Other Medical History: SEE HX IN CHART, sees urologist. - Past Surgical History Past Surgical History: Yes Neuro Surgical History: No Pertinent History Cardiac: No Pertinent History Respiratory: No Pertinent History Gastrointestinal: Hernia Repair, Other Genitourinary: No Pertinent History Musculoskeletal: No Pertinent History Male Surgical History: No Pertinent History Other Surgical History: right side inguinal hernia surgery 1987. nose operation 1991. ABDOMINAL CYST - Social History Smoking Status: Former smoker How long have you smoked: UNSURE Exposure to second hand smoke: No Drug Use: none Patient Lives Alone: No - Nursing Vital Signs Nursing Vital Signs: Initial Vital Signs Temperature 97.2 F 01/17/18 14:45 Pulse Rate 112 H 01/17/18 14:45 Blood Pressure 110/84 01/17/18 14:45 O2 Sat by Pulse Oximetry 96 01/17/18 14:45 Pain Scale Pain Intensity 0 - Physical Exam General Appearance: other (well-developed white male , intubated, moves all extremities opens eyes.) Eye Exam: PERRL/EOMI, other (edema bilateral periorbital area) Ears, Nose, Throat Exam: other (patient intubated) Neck Exam: normal inspection, non-tender, supple, full range of motion Respiratory Exam: other (breath sounds bilaterally with bag ventilation through ET tube) Cardiovascular Exam: regular rate/rhythm, normal heart sounds, normal peripheral pulses Gastrointestinal/Abdomen Exam: soft, normal bowel sounds, No tenderness, No mass Back Exam: normal inspection, normal range of motion, No CVA tenderness, No vertebral tenderness Extremity Exam: normal inspection, normal range of motion, pelvis stable Neurologic Exam: alert, trial paralegal II-XII nml as tested Skin Exam: other (multiple bee stings, skin erythematous.) SpO2 Interpretation: borderline oxygenation (98% on 100%) - Course Nursing assessment & vital signs reviewed: Yes EKG Interpreted by Me: RATE (78 bpm), Sinus Rhythm, NORMAL AXIS, Other (EKG: Sinus rhythm, 78 bpm, normal axis, no acute ST or T wave changes, essentially normal EKG) - Radiology Exams Chest X-ray Interpretation: Interpreted by me (chest x-ray: Endotracheal tube in good position, no pneumothorax, no acute disease process noted) Ordered Tests: Active Orders 24 hr Category Date Time Status CO2 Monitoring STAT Care 01/17/18 15:33 Active EKG-ER Only STAT Care 01/17/18 14:41 Active Souza [Catheter-[place] Souza] STAT Care 01/17/18 15:39 Active IV Insertion STAT Care 01/17/18 14:41 Active IV Insertion-2nd Peripheral STAT Care 01/17/18 15:00 Active Pulse Oximetry (ED) STAT Care 01/17/18 14:41 Active CHEST 1 VIEW (PORTABLE) Stat Exams 01/17/18 14:41 Taken ARTERIAL BLOOD GASES Stat Lab 01/17/18 16:00 Completed CBC W DIFF Stat Lab 01/17/18 15:03 Completed CMP Stat Lab 01/17/18 15:03 Completed Manual Differential NC Stat Lab 01/17/18 15:03 Completed TROPONIN Q3H Lab 01/17/18 15:03 Completed TROPONIN Q3H Lab 01/17/18 17:45 Ordered TROPONIN Q3H Lab 01/17/18 20:45 Ordered TROPONIN Q3H Lab 01/17/18 23:45 Ordered TROPONIN Q3H Lab 01/18/18 02:45 Ordered VENOUS BLOOD GAS Stat Lab 01/17/18 14:43 Completed Vent Settings [Ventilator Management] STAT RT 01/17/18 16:25 Active Medication Summary Generic Name Dose Route Start Last Admin Trade Name Freq PRN Reason Stop Dose Admin Sodium Chloride 1,000 mls @ 100 mls/hr 01/17/18 14:45 01/17/18 15:04 Sodium Chloride 0.9% 1000 Ml IV 02/16/18 14:44 100 mls/hr .Q10H AUNG Administration Midazolam HCl 50 mg/ Sodium 250 mls @ 10 mls/hr 01/17/18 15:00 01/17/18 15:03 Chloride IV 02/16/18 14:59 2 mg/hr .Q24H AUNG 10 mls/hr Administration 2 MG/HR Rocuronium [place] 50 mg 01/17/18 17:05 Zemuron 100 Mg/10 Ml IV 01/17/18 17:06 STAT ONE Lab/Rad Data: Laboratory Result Diagrams 01/17/18 15:03 01/17/18 15:03 Laboratory Results 01/17/18 01/17/18 01/17/18 Range/Units 16:00 15:03 15:03 WBC (4.0-10.5) K/mm3 RBC (4.1-5.6) M/mm3 Hgb (12.5-18.0) gm/dl Hct (42-50) % MCV (78-100) fl MCH (26-32) pg MCHC (32-36) g/dl RDW (11.5-14.0) % Plt Count (150-450) K/mm3 MPV (6-9.5) fl Absolute Granulocytes (1.4-6.9) Segmented Neutrophils (36.-66.) % Band Neutrophils (0.0-2.0) % Lymphocytes (Manual) (24-44) % Monocytes (Manual) (0.0-12.0) % Platelet Estimate (NORMAL) RBC Morphology Puncture Site RIGHT RADIAL pCO2 49 H (35-45) mmHg pO2 107 H (75-100) mmHg pO2/FiO2 Ratio % Base Excess -5.4 L (-2.0-2.0) O2 Saturation 96.2 (94-100) g/dF ABG pH 7.26 L (7.35-7.45) ABG HCO3 22.0 (22-28) ABG O2 Sat (Measured) 98.8 (95-100) % Mane Test YES VBG pH (7.32-7.42) VBG pCO2 at Pat Temp (42-55) mm/Hg VBG pO2 at Pat Temp (25-40) mm/Hg VBG HCO3 (22-28) meq/L VBG O2 Sat ([place]) (95-100) VBG Base Excess (-2.0-2.0) VBG Hemoglobin VBG Carboxyhemoglobin (0.0-6.9) % T HGB A-a Gradient 188 a/A Ratio 0.36 Hemoglobin 15.2 Carboxyhemoglobin 1.5 (0.0-6.9) % THgb Methemoglobin 1.1 L (1.4-1.5) % POC Potassium (3.5-5.1) Temperature 37.0 C POC O2 Flow Rate 50 % Vent Mode A/C Vent Rate 12 /MIN Tidal Volume 550 cc PEEP 5 cmH2O Sodium 139 (137-145) mmol/L Potassium 3.8 3.7 (3.5-5.1) mmol/L Chloride 109 H (98-107) mmol/L Carbon Dioxide 16 L (22-30) mmol/L Anion Gap 17.6 H (5-15) MEQ/L BUN 15 (9-20) mg/dL Creatinine 0.85 (0.66-1.25) mg/dL Estimated GFR > 60.0 ML/MIN Glucose 183 H (74-106) mg/dL Calcium 7.6 L (8.4-10.2) mg/dL Total Bilirubin 0.10 L (0.2-1.3) mg/dL AST 40 (17-59) U/L ALT 28 (0-50) U/L Alkaline Phosphatase 58 (38-126) U/L Troponin I 0.044 H* (0.000-0.034) ng/mL Serum Total Protein 4.6 L (6.3-8.2) g/dL Albumin 2.6 L (3.5-5.0) g/dL 01/17/18 01/17/18 Range/Units 15:03 14:43 WBC 21.5 H (4.0-10.5) K/mm3 RBC 4.40 (4.1-5.6) M/mm3 Hgb 13.8 (12.5-18.0) gm/dl Hct 42.7 (42-50) % MCV 97.0 (78-100) fl MCH 31.4 (26-32) pg MCHC 32.3 (32-36) g/dl RDW 13.0 (11.5-14.0) % Plt Count 208 (150-450) K/mm3 MPV 10.8 H (6-9.5) fl Absolute Granulocytes 9.46 H (1.4-6.9) Segmented Neutrophils 38 (36.-66.) % Band Neutrophils 3 H (0.0-2.0) % Lymphocytes (Manual) 56 H (24-44) % Monocytes (Manual) 3 (0.0-12.0) % Platelet Estimate NORMAL (NORMAL) RBC Morphology NORMAL Puncture Site pCO2 (35-45) mmHg pO2 (75-100) mmHg pO2/FiO2 Ratio 50.0 % Base Excess (-2.0-2.0) O2 Saturation (94-100) g/dF ABG pH (7.35-7.45) ABG HCO3 (22-28) ABG O2 Sat (Measured) (95-100) % Mane Test VBG pH 7.17 L* (7.32-7.42) VBG pCO2 at Pat Temp 45 (42-55) mm/Hg VBG pO2 at Pat Temp 110 H (25-40) mm/Hg VBG HCO3 16.4 L* (22-28) meq/L VBG O2 Sat ([place]) 98.6 (95-100) VBG Base Excess -11.9 L (-2.0-2.0) VBG Hemoglobin 14.1 VBG Carboxyhemoglobin 2.1 (0.0-6.9) % T HGB A-a Gradient a/A Ratio Hemoglobin Carboxyhemoglobin (0.0-6.9) % THgb Methemoglobin (1.4-1.5) % POC Potassium 3.7 (3.5-5.1) Temperature C POC O2 Flow Rate % Vent Mode Vent Rate /MIN Tidal Volume cc PEEP cmH2O Sodium (137-145) mmol/L Potassium (3.5-5.1) mmol/L Chloride (98-107) mmol/L Carbon Dioxide (22-30) mmol/L Anion Gap (5-15) MEQ/L BUN (9-20) mg/dL Creatinine (0.66-1.25) mg/dL Estimated GFR ML/MIN Glucose (74-106) mg/dL Calcium (8.4-10.2) mg/dL Total Bilirubin (0.2-1.3) mg/dL AST (17-59) U/L ALT (0-50) U/L Alkaline Phosphatase (38-126) U/L Troponin I (0.000-0.034) ng/mL Serum Total Protein (6.3-8.2) g/dL Albumin (3.5-5.0) g/dL - Progress Progress: improved Progress Note: 01/17/18 14:52 This is a 62-year-old white male with history of peripheral neuropathy, seizures , high blood pressure, COPD, asthma, pneumonia, diabetes type 2, osteoarthritis, He arrives arrives via medics patient is intubated, Patient apparently had multiple bee stings and became apneic he was noted to have oxygenation of 78% on the scene, Patient was given epinephrine, Solu-Medrol, Benadryl prior to arrival, Patient arrives he is appears to be agitated and is not tolerating the tube well , Patient with good blood pressure on arrival O2 sats 98% with ventilation through the ET tube with good breath sounds bilaterally, Nurses are removing bee stings Patient is given Versed 2 mg IV to facilitate continued intubation. Also will have pharmacy set up Versed drip. Patient has received IV fluids will continue. Will obtain chest x-ray CBC CMP venous gases EKG troponin. 01/17/18 16:36 Patient appears to be improving. Unfortunately the patient's troponin is mildly elevated at 0.044. Chest x-ray shows good placement of the patient's ET tube. Patient is showing improvement on his ABGs chemistry is essentially normal CBC shows a white count of 21.5 hemoglobin 13.8 hematocrit 42.7 platelets 208 I've discussed the patient's case with Dr. Adamson. He prefers that I send the patient to another hospital. Will contact. [facility] 01/17/18 17:07 I discussed the patient's case with Dr. Young at [facility]. He has excepted the patient for transfer. Diagnosis includes multiple bee stings, anaphylaxis, laryngeal edema, respiratory failure. Dr. Young has requested that patient be given rocuronium 50 mg iv Prior to transfer - Departure Time of Disposition: 17:09 Departure Disposition: Transfer ([facility] Dr Young) Clinical Impression: multiple bee stings, Laryngeal edema Acute anaphylaxis Qualifiers: Encounter type: initial encounter Qualified Code(s): T78.2XXA - Anaphylactic shock, unspecified, initial encounter Respiratory failure Qualifiers: Chronicity: acute Respiratory failure complication: hypoxia Qualified Code(s): J96.01 - Acute respiratory failure with hypoxia Condition: Fair Critical Care Time: Yes Critical Care Time(excluding separately billable procedures): 30-74 minutes Referrals: NORBERT STATON [Primary Care Provider] -
[2018-01-17] MEDS ORDERED: Versed 50 MG/ 10 Ml MDV*** 50 MG in Sodium Chloride 0.9% 250 ML 240 ML IV SCH (15:00)
[2018-01-17 15:03] LABS: VBG BASE EXCESS -11.9 (-2.0-2.0); VBG CARBOXYHEMOGLOBIN 2.1 % T HGB (0.0-6.9); VBG HCO3- 16.4 meq/L (22-28); VBG HEMOGLOBIN 14.1; VBG O2 SATURATION 98.6 (95-100); VBG POTASSIUM 3.7 (3.5-5.1)
[2018-01-17 15:04] LABS: VBG pH 7.17 (7.32-7.42)
[2018-01-17 15:21] LABS: Granulocyte Absolute (ANC) 9.46 (1.4-6.9); Hematocrit 42.7 % (42-50); Hemoglobin 13.8 gm/dl (12.5-18.0); Mean Corpuscular Hemoglobin 31.4 pg (26-32); Mean Corpuscular Hgb Concent. 32.3 g/dl (32-36); Mean Platelet Volume 10.8 fl (6-9.5); Platelet Count 208 K/mm3 (150-450); White Blood Count 21.5 K/mm3 (4.0-10.5)
[2018-01-17 15:26] LABS: ALBUMIN 2.6 g/dL (3.5-5.0); ALKALINE PHOSPHATASE 58 U/L (38-126); ANION GAP 17.6 MEQ/L (5-15); BLOOD UREA NITROGEN 15 mg/dL (9-20); CHLORIDE 109 mmol/L (98-107); Calcium 7.6 mg/dL (8.4-10.2); Creatinine 1 0.85 mg/dL (0.66-1.25); Glucose 183 mg/dL (74-106); Potassium 3.7 mmol/L (3.5-5.1); SGOT/AST 40 U/L (17-59); SODIUM 139 mmol/L (137-145); Total Protein 4.6 g/dL (6.3-8.2)
[2018-01-17 15:32] LABS: SGPT/ALT 28 U/L (0-50)
[2018-01-17 15:39] LABS: Carbon Dioxide 16 mmol/L (22-30)
[2018-01-17 16:01] VITALS: O2SAT 98
[2018-01-17 16:10] LABS: A-aADO2 188; ABG HEMOGLOBIN 15.2; ABG POTASSIUM 3.8 (3.5-5.1); ABG SITE RIGHT RADIAL; ARTERIAL BLD GAS O2 SATURATION 98.8 % (95-100); ARTERIAL BLD GAS TIDAL VOLUME 550 cc; ARTERIAL BLOOD GAS BASE EXCESS -5.4 (-2.0-2.0); ARTERIAL BLOOD GAS FIO2 50 %; ARTERIAL BLOOD GAS PCO2 49 mmHg (35-45); ARTERIAL BLOOD GAS PEEP 5 cmH2O; ARTERIAL BLOOD GAS PO2 107 mmHg (75-100); ARTERIAL BLOOD GAS VENT MODE A/C; ARTERIAL BLOOD GAS pH 7.26 (7.35-7.45); CARBOXYHEMOGLOBIN 1.5 % THgb (0.0-6.9); HGB O2 SAT 96.2 g/dF (94-100); Methhemoglobin 1.1 % (1.4-1.5); paO2 pAO1 0.36
[2018-01-17 16:11] LABS: ALLEN TEST OK? YES; ARTERIAL BLOOD GAS VENT RATE 12 /MIN
[2018-01-17 16:32] LABS: BAND 3 % (0.0-2.0); Lymphocytes 56 % (24-44); Monocyte 3 % (0.0-12.0); Neutrophils 38 % (36.-66.); Total Cells Counted 100
[2018-01-17 16:33] LABS: Platelet Estimate NORMAL (NORMAL)
[2018-01-17] MEDS ORDERED: Zemuron 100 MG/10 ML IV ONE (17:05)
[2018-01-17 17:43] VITALS: BP 100/72; PULSE 95
--- NOTE | 2018-01-17 21:08 | XRAY ---
Indication: Multiple bee stings. Anaphylaxis. Apnea. Comparison: November 14, 2017. Portable chest demonstrates new endotracheal tube tip 3 cm above the elizabeth in good position. Remaining heart, lungs, and bony thorax unremarkable.
== END 2018-01-17 18:15 | disposition short-term general hospital (02) ==
LOC: ED 14:38
DX: T63.441A Toxic effect of venom of bees, accidental (unintentional), initial encounter (principal); J96.01 Acute respiratory failure with hypoxia; J38.4 Edema of larynx; T78.2XXA Anaphylactic shock, unspecified, initial encounter; Z79.899 Other long term (current) drug therapy; E11.9 Type 2 diabetes mellitus without complications; Z79.84 Long term (current) use of oral hypoglycemic drugs
CPT/HCPCS: 36415; 36600; 51702; 71045; 80053; 82375; 82803; 82805; 82962; 84484; 85025; 93005; 93041; 94002; 94770; 94799; 96360; 96361; 96365; 96366; 96367; 96374; 99285; 99291; J2250

== ENCOUNTER 2018-03-16 09:41 | Emergency (ER) | payer MEDICARE ==
[2018-03-16] MEDS ORDERED: Sodium Chloride 0.9% 1000 ML 1,000 ML IV SCH (10:00)
[2018-03-16 10:19] LABS: Granulocyte Absolute (ANC) 4.46 (1.4-6.9); Hematocrit 40.1 % (42-50); Hemoglobin 13.2 gm/dl (12.5-18.0); Mean Cell Volume 92.6 fl (78-100); Mean Corpuscular Hemoglobin 30.5 pg (26-32); Mean Corpuscular Hgb Concent. 32.9 g/dl (32-36); Mean Platelet Volume 10.3 fl (6-9.5); Platelet Count 167 K/mm3 (150-450); Red Blood Count 4.33 M/mm3 (4.1-5.6); Red Cell Distribution Width 13.1 % (11.5-14.0); White Blood Count 11.1 K/mm3 (4.0-10.5)
[2018-03-16 10:37] LABS: ALBUMIN 4.5 g/dL (3.5-5.0); ALKALINE PHOSPHATASE 52 U/L (38-126); ANION GAP 16.2 MEQ/L (5-15); BLOOD UREA NITROGEN 18 mg/dL (9-20); CHLORIDE 102 mmol/L (98-107); Calcium 9.6 mg/dL (8.4-10.2); Carbon Dioxide 28 mmol/L (22-30); Creatinine 1 0.79 mg/dL (0.66-1.25); Glucose 130 mg/dL (74-106); Potassium 4.5 mmol/L (3.5-5.1); SGOT/AST 31 U/L (17-59); SGPT/ALT 25 U/L (0-50); SODIUM 142 mmol/L (137-145); Total Protein 7.3 g/dL (6.3-8.2)
[2018-03-16 10:44] LABS: INR 1.06 (0.8-3.0)
--- NOTE | 2018-03-16 10:58 | XRAY ---
Exam: AP upright portable chest film from 03/16/2018. Comparison: AP portable chest films from 01/17/2018. Indication: Cough. Findings: The exam was obtained in a lordotic projection. Endotracheal tube has been removed. The transverse heart size appears within normal limits. There is an adequate level of inspiration. Pulmonary vasculature appears within normal limits. I see no air space infiltrates, pneumothorax, or pleural effusion. There is a minimal nodular density overlying the posterior right eighth rib which probably represents the patient's right nipple. I believe I can detect the left nipple along the lower left lateral chest wall. The patient is slightly rotated toward the left. The bony thorax appears intact. Slight convexity of the lower thoracic spine toward the right is seen representing no change. Impression: 1. No air space infiltrates to suggest pneumonia or other acute cardiopulmonary disease is seen.
[2018-03-16] MEDS ORDERED: Sodium Chloride 0.9% 1000 ML 1,000 ML ONE (11:22)
[2018-03-16 11:51] LABS: ANISOCYTOSIS 1+; ATYPICAL LYMPHS 1 %; Eosinophil 1 % (0.00-3.0); Lymphocytes 47 % (24-44); Monocyte 4 % (0.0-12.0); Neutrophils 47 % (36.-66.); Platelet Estimate NORMAL (NORMAL); Total Cells Counted 100
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
[2018-03-16 14:18] VITALS: PULSE 80
[2018-03-16 15:08] LABS: Amphetamine,Urine NEGATIVE (NEGATIVE); Barbiturate,Urine POSITIVE (NEGATIVE); Benzodiazepine,Urine NEGATIVE (NEGATIVE); Cocaine,Urine NEGATIVE (NEGATIVE); Methadone,Urine NEGATIVE (NEGATIVE); Opiate,Urine NEGATIVE (NEGATIVE); PCP,Urine NEGATIVE (NEGATIVE); THC,Urine NEGATIVE (NEGATIVE)
[2018-03-16] MEDS ORDERED: LIQUI-CHAR 50 GM PO ONE (15:37)
[2018-03-16 19:26] LABS: Appearance CLEAR (CLEAR); Bilirubin NEGATIVE (NEGATIVE); Blood NEGATIVE Ery/ul (0-5); Glucose NEGATIVE (NEGATIVE); Ketones NEGATIVE (NEGATIVE); Leukocyte Esterase NEGATIVE (NEGATIVE); Nitrite NEGATIVE (NEGATIVE); Protein,Urine Dip NEGATIVE (Negative); Urobilinogen NORMAL mg/dL (0-1)
[2018-03-16 19:35] VITALS: BP 140/70; O2SAT 98
== END 2018-03-16 19:41 ==
LOC: ED 09:41
DX: F91.8 Other conduct disorders (principal); G40.909 Epilepsy, unspecified, not intractable, without status epilepticus; I10 Essential (primary) hypertension; E11.9 Type 2 diabetes mellitus without complications; Z79.4 Long term (current) use of insulin; M19.90 Unspecified osteoarthritis, unspecified site; F32.9 Major depressive disorder, single episode, unspecified; Z79.899 Other long term (current) drug therapy
CPT/HCPCS: 36000; 36415; 71045; 80053; 80061; 80164; 80307; 81002; 82043; 82306; 83036; 83704; 83721; 84443; 84484; 85025; 85610; 93005; 96360; 96361; 99285

== ENCOUNTER 2018-10-20 20:34 | Emergency (ER) | payer MEDICARE ==
--- NOTE | 2018-10-20 21:09 | ERPHSYRPT ---
- History of Present Illness Time Seen by Provider: 10/20/18 21:09 Source: patient Exam Limitations: no limitations, other (pt has mental disability. sister providing hx) Patient Subjective Stated Complaint: pt is alert and oriented appropriate for pt mentation. pt is mentally disabled in with his sister who is the historian. pt is able to transfer to bed from the wheelchair with the assistance of 2. pt sister states that he has had a cough since yesterday and that he has been more weak. pt lung sounds diminished with some fine expiratory wheezes on the right side. left side diminished. pt states that he is having leg pain but that is normal for him, pt also states that his head feels "cold." pt is warm to touch. temp of 101.8 and is slightly tachycardic at 115. pt radial pulses present and strong. Triage Nursing Assessment: see above Physician History: 63 y/o white male presents with cough and fever. sx began last evening. pt was weak this evening. no cp, no soa, no n/v/d. no abd pain. pt has h/o aspiration pneumonia. pt has h/o asthma and copd Timing/Duration: yesterday Cough Quality/Degree: mild, dry cough Possible Cause: no prior episodes Modifying Factors: Improves With: coughing Associated Symptoms: fever Allergies/Adverse Reactions: bee venom protein (honey bee) Allergy (Verified 01/17/18 15:23) Home Medications: Fluticasone/Salmeterol [Advair 250-50 Diskus] 1 puff IH BID 01/01/12 [History] Gabapentin 600 mg PO BID 01/01/12 [History] Metformin HCl 500 mg [Glucophage 500 MG] 500 mg PO BID 01/01/12 [History] Omeprazole 40 mg PO BID 01/01/12 [History] Sertraline HCl 100 mg PO HS 01/01/12 [History] Tiotropium [place] Inhaler [Spiriva 18 Mcg/Cap Inhaler] 18 mcg IH DAILY [History] Aspirin [Aspir 81] 81 mg PO DAILY 01/20/12 [History] Divalproex Sodium [Depakote] 500 mg PO TID 03/31/14 [History] Duloxetine HCl [Cymbalta] 60 mg PO BID 03/31/14 [History] Ferrous Sulfate 325 mg [Feosol 325 mg] 325 mg PO BID 03/31/14 [History] Mirabegron [Myrbetriq] 50 mg PO HS 03/31/14 [History] Multivitamin [Multivitamins] 1 each PO DAILY 03/31/14 [History] Primidone 50 MG [Mysoline 50Mg] 50 mg PO TID 03/31/14 [History] Tamsulosin HCl 0.4 mg [Flomax 0.4 MG] 0.4 mg PO HS 03/31/14 [History] Albuterol Sulfate [Proair Hfa] 2 puff IH Q4H PRN PRN 09/06/16 [History] Cholecalciferol (Vitamin D3) [Vitamin D3] 1,000 unit PO DAILY 09/06/16 [History] Exenatide Microspheres [Bydureon Pen] 2 mg SQ WEEKLY 09/06/16 [History] Hydrocodone/APAP 10/325 mg [[place] 10/325 MG Tablet] 1 tab PO Q4H PRN PRN 09/06/16 [History] Naproxen [Naprosyn] 500 mg PO BID 09/06/16 [History] Albuterol Sulfate 0.63 mg IH TID 09/07/16 [History] Sennosides [Senna Laxative] 8.6 mg PO UD PRN 09/07/16 [History] Alprazolam 1 mg [Xanax 1 mg] 1 mg PO BID PRN 11/14/17 [History] Hx Tetanus, Diphtheria Vaccination/Date Given: Yes Hx Influenza Vaccination/Date Given: Yes Hx Pneumococcal Vaccination/Date Given: Yes Immunizations Up to Date: Yes - Review of Systems Constitutional: Fever, Weakness Eyes: No Symptoms Ears, Nose, & Throat: No Symptoms Respiratory: Cough Cardiac: No Symptoms, No Chest Pain, No Palpitations, No Syncope Abdominal/Gastrointestinal: No Symptoms, No Abdominal Pain, No Nausea, No Vomiting Genitourinary Symptoms: No Symptoms, No Dysuria, No Frequency, No Hematuria Musculoskeletal: No Symptoms Skin: No Symptoms Neurological: No Symptoms Psychological: No Symptoms Endocrine: No Symptoms Hematologic/Lymphatic: No Symptoms Immunological/Allergic: No Symptoms All Other Systems: Reviewed and Negative - Past Medical History Pertinent Past Medical History: Yes Neurological History: Seizures ENT History: No Pertinent History Cardiac History: Hypertension Respiratory History: Asthma, COPD Endocrine Medical History: Diabetes Type II Musculoskeletal History: Osteoarthritis GI Medical History: Hernia History: Other Psycho-Social History: Depression, Other Male Reproductive Disorders: No Pertinent History Other Medical History: SEE HX IN CHART, sees urologist for incontinence - Past Surgical History Past Surgical History: Yes Neuro Surgical History: No Pertinent History Cardiac: No Pertinent History Respiratory: No Pertinent History Gastrointestinal: Hernia Repair, Other Genitourinary: No Pertinent History Musculoskeletal: No Pertinent History Male Surgical History: No Pertinent History Other Surgical History: right side inguinal hernia surgery 1987. nose operation 1991. ABDOMINAL CYST - Social History Smoking Status: Former smoker How long have you smoked: UNSURE Exposure to second hand smoke: No Drug Use: none Patient Lives Alone: No - Nursing Vital Signs Nursing Vital Signs: Initial Vital Signs Temperature 101.8 F 10/20/18 20:56 Pulse Rate 113 H 10/20/18 20:56 Respiratory Rate 22 10/20/18 20:56 Blood Pressure 142/81 10/20/18 20:56 O2 Sat by Pulse Oximetry 89 L 10/20/18 20:56 - Physical Exam General Appearance: no apparent distress, alert Eye Exam: PERRL/EOMI Ears, Nose, Throat Exam: normal ENT inspection, TMs normal, moist mucous membranes Neck Exam: normal inspection, non-tender, supple, full range of motion Respiratory Exam: normal breath sounds, lungs clear, airway intact, No chest tenderness, No respiratory distress Cardiovascular Exam: tachycardia Gastrointestinal/Abdomen Exam: soft, normal bowel sounds, No tenderness Rectal Exam: not done Back Exam: normal inspection, normal range of motion, No CVA tenderness, No vertebral tenderness Extremity Exam: normal inspection, normal range of motion, pelvis stable Neurologic Exam: alert, oriented x 3, cooperative, computational mathematician II-XII nml as tested Skin Exam: normal color, warm, dry Lymphatic Exam: No adenopathy SpO2 Interpretation: borderline oxygenation SpO2: 93 O2 Delivery: Room Air - Course Nursing assessment & vital signs reviewed: Yes EKG Interpreted by Me: RATE (108), Sinus Rhythm, Sinus Tach, NORMAL AXIS, NORMAL QRS, Other (comparison ekg dated 11/14/17 no changes) Ordered Tests: Active Orders 24 hr Category Date Time Status Research Compliance Specialist STAT Care 10/20/18 21:14 Active EKG-ER Only STAT Care 10/20/18 21:13 Active IV Insertion STAT Care 10/20/18 21:13 Active Pulse Oximetry (ED) STAT Care 10/20/18 21:13 Active CHEST 1 VIEW (PORTABLE) Stat Exams 10/20/18 21:14 Taken BLOOD CULTURE Stat Lab 10/20/18 21:25 Received BMP Stat Lab 10/20/18 21:25 Completed CBC W DIFF Stat Lab 10/20/18 21:25 Completed Lactic Acid Stat Lab 10/20/18 21:13 Results Respiratory Therapy Assessment DAILY RT 10/20/18 22:26 Active Medication Summary Generic Name Dose Route Start Last Admin Trade Name Freq PRN Reason Stop Dose Admin Ceftriaxone Sodium/Dextrose 1 g in 50 mls @ 100 mls/hr 10/20/18 22:47 Rocephin 1 Gm-D5w 50 Ml Bag IV 10/20/18 23:16 STAT STA Discontinued Medications Generic Name Dose Route Start Last Admin Trade Name Freq PRN Reason Stop Dose Admin Hydrocodone Bitart/Acetaminophen 10 ml 10/20/18 21:15 10/20/18 21:27 Hydrocodone-Acetamin 2.5-108/5 Ml Solution PO 10/20/18 21:16 10 ml STAT STA Administration Hydrocodone Bitart/Acetaminophen Confirm 10/20/18 21:22 Hydrocodone-Acetamin 2.5-108/5 Ml Solution Administered 10/20/18 21:23 Dose 10 ml .ROUTE .STK-MED ONE Albuterol/Ipratropium Confirm 10/20/18 22:21 Duoneb 0.5-3 Mg/3 Ml Neb Administered 10/20/18 22:22 Dose 3 ml IH .STK-MED ONE Albuterol/Ipratropium 3 ml 10/20/18 22:22 10/20/18 22:24 Duoneb 0.5-3 Mg/3 Ml Neb IH 10/20/18 22:23 3 ml STAT ONE Administration Sodium Chloride 1,000 mls @ 999 mls/hr 10/20/18 21:13 10/20/18 22:32 Sodium Chloride 0.9% 1000 Ml IV 10/20/18 22:13 Infused .Q1H1M STA Infusion Sodium Chloride Confirm 10/20/18 21:22 Sodium Chloride 0.9% 1000 Ml Administered 10/20/18 21:23 Dose 1,000 mls @ ud .ROUTE .STK-MED ONE Ibuprofen 600 mg 10/20/18 21:13 10/20/18 21:29 Motrin 600 Mg PO 10/20/18 21:14 600 mg STAT STA Administration Ibuprofen Confirm 10/20/18 21:22 Motrin 600 Mg Administered 10/20/18 21:23 Dose 600 mg .ROUTE .[facility] ONE Lab/Rad Data: Laboratory Result Diagrams 10/20/18 21:25 10/20/18 21:25 Laboratory Results 10/20/18 10/20/18 10/20/18 Range/Units 21:25 21:25 21:25 WBC 9.3 (4.0-10.5) K/mm3 RBC 4.31 (4.1-5.6) M/mm3 Hgb 13.1 (12.5-18.0) gm/dl Hct 39.8 L (42-50) % MCV 92.3 (78-100) fl MCH 30.4 (26-32) pg MCHC 32.9 (32-36) g/dl RDW 13.4 (11.5-14.0) % Plt Count 131 L (150-450) K/mm3 MPV 10.5 H (6-9.5) fl Gran % 52.8 (36.0-66.0) % Eos # (Auto) 0.04 (0-0.5) Absolute Lymphs (auto) 3.00 (1.0-4.6) Absolute Monos (auto) 1.31 H (0.0-1.3) Lymphocytes % 32.4 (24.0-44.0) % Monocytes % 14.1 H (0.0-12.0) % Eosinophils % 0.4 (0.00-5.0) % Basophils % 0.3 (0.0-0.4) % Absolute Granulocytes 4.89 (1.4-6.9) Basophils # 0.03 (0-0.4) Sodium 133 L (137-145) mmol/L Potassium 4.5 (3.5-5.1) mmol/L Chloride 92 L (98-107) mmol/L Carbon Dioxide 31 H (22-30) mmol/L Anion Gap 14.1 (5-15) MEQ/L BUN 13 (9-20) mg/dL Creatinine 0.87 (0.66-1.25) mg/dL Estimated GFR > 60.0 ML/MIN Glucose 126 H (74-106) mg/dL Lactic Acid (0.4-2.0) Calcium 9.9 (8.4-10.2) mg/dL Influenza Type A Ag NEGATIVE (NEGATIVE) Influenza Type B Ag NEGATIVE (NEGATIVE) RSV (PCR) NEGATIVE (Negative) Group A Strep Antibody NEGATIVE (NEGATIVE) 10/20/18 Range/Units 21:13 WBC (4.0-10.5) K/mm3 RBC (4.1-5.6) M/mm3 Hgb (12.5-18.0) gm/dl Hct (42-50) % MCV (78-100) fl MCH (26-32) pg MCHC (32-36) g/dl RDW (11.5-14.0) % Plt Count (150-450) K/mm3 MPV (6-9.5) fl Gran % (36.0-66.0) % Eos # (Auto) (0-0.5) Absolute Lymphs (auto) (1.0-4.6) Absolute Monos (auto) (0.0-1.3) Lymphocytes % (24.0-44.0) % Monocytes % (0.0-12.0) % Eosinophils % (0.00-5.0) % Basophils % (0.0-0.4) % Absolute Granulocytes (1.4-6.9) Basophils # (0-0.4) Sodium (137-145) mmol/L Potassium (3.5-5.1) mmol/L Chloride (98-107) mmol/L Carbon Dioxide (22-30) mmol/L Anion Gap (5-15) MEQ/L BUN (9-20) mg/dL Creatinine (0.66-1.25) mg/dL Estimated GFR ML/MIN Glucose (74-106) mg/dL Lactic Acid 2.2 H (0.4-2.0) Calcium (8.4-10.2) mg/dL Influenza Type A Ag (NEGATIVE) Influenza Type B Ag (NEGATIVE) RSV (PCR) (Negative) Group A Strep Antibody (NEGATIVE) - Progress Progress: improved Air Movement: good Progress Note: 10/20/18 22:47 [id number]? early right perihilar infiltrate Blood Culture(s) Obtained: Yes Antibiotics given: Yes Counseled pt/family regarding: lab results, diagnosis, need for follow-up, rad results - Departure Time of Disposition: 22:48 Departure Disposition: Home Clinical Impression: Right middle lobe pulmonary infiltrate Condition: Stable Critical Care Time: No Referrals: CUONG BROWN [Primary Care Provider] - Additional Instructions: take medications as prescribed. drink plenty of fluids. use tylenol and ibuprofen for fever. follow up with your primary doctor for further management Prescriptions: Cefdinir 300 mg PO BID 7 Days #14 capsule
[2018-10-20] MEDS ORDERED: Sodium Chloride 0.9% 1000 ML 1,000 ML IV STA (21:13)
[2018-10-20] MEDS ORDERED: MOTRIN 600 MG PO STA (21:13)
[2018-10-20] MEDS ORDERED: HYDROCODONE-ACETAMIN 2.5-108/5 ML SOLUTION PO STA (21:15)
[2018-10-20] MEDS ORDERED: Sodium Chloride 0.9% 1000 ML 1,000 ML ONE (21:22)
[2018-10-20] MEDS ORDERED: HYDROCODONE-ACETAMIN 2.5-108/5 ML SOLUTION ONE (21:22)
[2018-10-20] MEDS ORDERED: MOTRIN 600 MG ONE (21:22)
[2018-10-20 21:34] LABS: Lactic Acid 2.2 (0.4-2.0)
[2018-10-20 21:41] LABS: BASOPHIL % 0.3 % (0.0-0.4); Basophil (Absolute #) 0.03 (0-0.4); Eosinophil % 0.4 % (0.00-5.0); Eosinophil (Absolute #) 0.04 (0-0.5); Granulocyte Absolute (ANC) 4.89 (1.4-6.9); Granulocytes % 52.8 % (36.0-66.0); Hematocrit 39.8 % (42-50); Hemoglobin 13.1 gm/dl (12.5-18.0); Lymphocytes % 32.4 % (24.0-44.0); Mean Cell Volume 92.3 fl (78-100); Mean Corpuscular Hemoglobin 30.4 pg (26-32); Mean Corpuscular Hgb Concent. 32.9 g/dl (32-36); Mean Platelet Volume 10.5 fl (6-9.5); Monocyte (Absolute #) 1.31 (0.0-1.3); Monocytes % 14.1 % (0.0-12.0); Platelet Count 131 K/mm3 (150-450); Red Blood Count 4.31 M/mm3 (4.1-5.6); Red Cell Distribution Width 13.4 % (11.5-14.0); White Blood Count 9.3 K/mm3 (4.0-10.5)
[2018-10-20 21:53] LABS: ANION GAP 14.1 MEQ/L (5-15); BLOOD UREA NITROGEN 13 mg/dL (9-20); CHLORIDE 92 mmol/L (98-107); Calcium 9.9 mg/dL (8.4-10.2); Carbon Dioxide 31 mmol/L (22-30); Creatinine 1 0.87 mg/dL (0.66-1.25); Glucose 126 mg/dL (74-106); Potassium 4.5 mmol/L (3.5-5.1); SODIUM 133 mmol/L (137-145)
[2018-10-20 22:14] LABS: Group A Strep NEGATIVE (NEGATIVE); INFLUENZA A NEGATIVE (NEGATIVE); INFLUENZA B NEGATIVE (NEGATIVE); RESPIRATORY SYNCTIAL VIRUS NEGATIVE (Negative)
[2018-10-20] MEDS ORDERED: DUONEB 0.5-3 MG/3 ml Neb IH ONE ×2 (22:21→22:22)
[2018-10-20] MEDS ORDERED: ROCEPHIN 1 Gm-D5w 50 ml Bag** 1 G/50 ML IVPB IV STA (22:47)
[2018-10-20] MEDS ORDERED: ROCEPHIN 1 Gm-D5w 50 ml Bag** 1 G/50 ML IVPB IV ONE (22:51)
[2018-10-20] MEDS ORDERED: Sodium Chloride 0.9% 500 ML 500 ML IV ONE ×2 (22:54)
[2018-10-20 23:47] VITALS: BP 130/76; PULSE 101; O2SAT 92
--- NOTE | 2018-10-21 08:52 | XRAY ---
Indication: Fever and cough. Comparison: March 16, 2018. Portable apical lordotic chest remains clear. Heart is not enlarged. Bony thorax intact again with mild degenerative changes. No new/acute findings. Impression: Stable nonacute chest.
== END 2018-10-21 00:07 | disposition home or self-care (01) ==
LOC: ED 20:34
DX: R91.8 Other nonspecific abnormal finding of lung field (principal); I10 Essential (primary) hypertension; G40.909 Epilepsy, unspecified, not intractable, without status epilepticus; E11.9 Type 2 diabetes mellitus without complications; F32.9 Major depressive disorder, single episode, unspecified
CPT/HCPCS: 36000; 36415; 71045; 80048; 83605; 85025; 87040; 87631; 87651; 93005; 93041; 94640; 96360; 96361; 96365; 99284; J0696; A9270-GY

== ENCOUNTER 2018-10-21 19:36 | Inpatient (IN) | payer MEDICARE ==
[2018-10-21] MEDS ORDERED: ROCEPHIN 1 Gm-D5w 50 ml Bag** 1 G/50 ML IVPB IV STA (19:52)
[2018-10-21] MEDS ORDERED: Zithromax 500 MG/ 250 ML NaCl Premix 500 MG/250 ML IVPB IV STA (19:56)
[2018-10-21] MEDS ORDERED: Sodium Chloride 0.9% 1000 ML 1,000 ML ONE ×2 (20:02→20:50)
[2018-10-21] MEDS ORDERED: ROCEPHIN 1 Gm-D5w 50 ml Bag** 1 G/50 ML IVPB IV ONE (20:02)
[2018-10-21] MEDS ORDERED: Zithromax 500 MG/ 250 ML NaCl Premix 500 MG/250 ML IVPB IV ONE (20:02)
--- NOTE | 2018-10-21 20:06 | ERPHSYRPT ---
- History of Present Illness Time Seen by Provider: 10/21/18 19:48 Source: patient, other (sister) Exam Limitations: no limitations Patient Subjective Stated Complaint: pt is alert and oriented. pt is ambulatory with the assist of 2. pt comes in with c/o weakness, shaking, fever, and cough. pt was here last night for same symptoms. pt current temp is 103.1. pt has a nonproductive cough. pt is 85% on RA. pt placed on 2L and is now 90%. pt is tachycardic at 131 on the monitor. Triage Nursing Assessment: see above Physician History: Pt was seen here last night, diagnosed with Pneumonia, discharged on PO Omnicef. He started shaking last night, developed higher temp. 103.1 F, and more severe SOB, coughing up yellow dark yellow phlegm, denies chest pain, vomiting, other complaints. Timing/Duration: day(s) (3) Fever Severity: severe Fever Therapy [employer]: Ibuprofen, Acetaminophen Associated Symptoms: cough, shortness of breath Allergies/Adverse Reactions: bee venom protein (honey bee) Allergy (Verified 01/17/18 15:23) Home Medications: Fluticasone/Salmeterol [Advair 250-50 Diskus] 1 puff IH BID 01/01/12 [History] Gabapentin 600 mg PO BID 01/01/12 [History] Metformin HCl 500 mg [Glucophage 500 MG] 500 mg PO BID 01/01/12 [History] Omeprazole 40 mg PO BID 01/01/12 [History] Sertraline HCl 100 mg PO HS 01/01/12 [History] Tiotropium [place] Inhaler [Spiriva 18 Mcg/Cap Inhaler] 18 mcg IH DAILY [History] Aspirin [Aspir 81] 81 mg PO DAILY 01/20/12 [History] Divalproex Sodium [Depakote] 500 mg PO TID 03/31/14 [History] Duloxetine HCl [Cymbalta] 60 mg PO BID 03/31/14 [History] Ferrous Sulfate 325 mg [Feosol 325 mg] 325 mg PO BID 03/31/14 [History] Mirabegron [Myrbetriq] 50 mg PO HS 03/31/14 [History] Multivitamin [Multivitamins] 1 each PO DAILY 03/31/14 [History] Primidone 50 MG [Mysoline 50Mg] 50 mg PO TID 03/31/14 [History] Tamsulosin HCl 0.4 mg [Flomax 0.4 MG] 0.4 mg PO HS 03/31/14 [History] Albuterol Sulfate [Proair Hfa] 2 puff IH Q4H PRN PRN 09/06/16 [History] Cholecalciferol (Vitamin D3) [Vitamin D3] 1,000 unit PO DAILY 09/06/16 [History] Exenatide Microspheres [Bydureon Pen] 2 mg SQ WEEKLY 09/06/16 [History] Hydrocodone/APAP 10/325 mg [[place] 10/325 MG Tablet] 1 tab PO Q4H PRN PRN 09/06/16 [History] Naproxen [Naprosyn] 500 mg PO BID 09/06/16 [History] Albuterol Sulfate 0.63 mg IH TID 09/07/16 [History] Sennosides [Senna Laxative] 8.6 mg PO UD PRN 09/07/16 [History] Alprazolam 1 mg [Xanax 1 mg] 1 mg PO BID PRN 11/14/17 [History] Hx Tetanus, Diphtheria Vaccination/Date Given: Yes Hx Influenza Vaccination/Date Given: Yes Hx Pneumococcal Vaccination/Date Given: Yes Immunizations Up to Date: Yes - Review of Systems Constitutional: Fever, Chills, Fatigue Eyes: No Symptoms Ears, Nose, & Throat: No Symptoms Respiratory: Cough, Dyspnea Genitourinary Symptoms: No Symptoms Musculoskeletal: No Symptoms Skin: No Symptoms Neurological: No Symptoms All Other Systems: Reviewed and Negative - Past Medical History Pertinent Past Medical History: Yes Neurological History: Seizures ENT History: No Pertinent History Cardiac History: Hypertension Respiratory History: Asthma, COPD Endocrine Medical History: Diabetes Type II Musculoskeletal History: Osteoarthritis GI Medical History: Hernia History: Other Psycho-Social History: Depression, Other Male Reproductive Disorders: No Pertinent History Other Medical History: SEE HX IN CHART, sees urologist for incontinence - Past Surgical History Past Surgical History: Yes Neuro Surgical History: No Pertinent History Cardiac: No Pertinent History Respiratory: No Pertinent History Gastrointestinal: Hernia Repair, Other Genitourinary: No Pertinent History Musculoskeletal: No Pertinent History Male Surgical History: No Pertinent History Other Surgical History: right side inguinal hernia surgery 1987. nose operation 1991. ABDOMINAL CYST - Social History Smoking Status: Former smoker How long have you smoked: UNSURE Exposure to second hand smoke: No Drug Use: none Patient Lives Alone: No - Nursing Vital Signs Nursing Vital Signs: Initial Vital Signs Temperature 103.1 F 10/21/18 19:42 Pulse Rate 144 H 10/21/18 19:42 Respiratory Rate 18 10/21/18 19:42 Blood Pressure 173/94 10/21/18 19:42 O2 Sat by Pulse Oximetry 88 L 10/21/18 19:42 - Physical Exam General Appearance: mild distress Eye Exam: eyes nml inspection ENT Exam: normal ENT inspection Neck Exam: normal inspection, non-tender, supple, trachea midline, No JVD, No lymphadenopathy (R), No lymphadenopathy (L) Respiratory Exam: chest non-tender, no accessory muscle use, crackles/rales, rhonchi (bilateral base) Cardiovascular/Chest Exam: regular rate/rhythm, normal peripheral pulses, tachycardia, No murmur Gastrointestinal/Abdominal Exam: soft, non tender, no distention, no mass, no guarding, no organomegaly Extremity Exam: non-tender, no calf tenderness, no pedal edema Neurologic Exam: alert, oriented x 3, cooperative, normal mood/affect Skin Exam: normal color, warm, dry, No rash Lymphatic: No adenopathy SpO2 Interpretation: normal SpO2: 94 O2 Delivery: Room Air - Course Nursing assessment & vital signs reviewed: Yes EKG Interpreted by Me: RATE (123/min), Sinus Tach, NORMAL AXIS, NORMAL QRS, NORMAL ST-T - Radiology Exams Chest X-ray Interpretation: Interpreted by me, Pneumonia, Other (LLL infiltrate) Ordered Tests: Active Orders 24 hr Category Date Time Status Windows Consultant STAT Care 10/21/18 19:53 Active EKG-ER Only STAT Care 10/21/18 19:52 Active IV Insertion STAT Care 10/21/18 19:52 Active IV Insertion-2nd Peripheral STAT Care 10/21/18 19:52 Active Oxygen-ED Only Nasal Cannula 2 lpm Care 10/21/18 19:52 Active Pulse Oximetry (ED) STAT Care 10/21/18 19:52 Active CHEST 1 VIEW (PORTABLE) Stat Exams 10/21/18 19:53 Taken BLOOD CULTURE Stat Lab 10/21/18 20:15 Received CBC W DIFF Stat Lab 10/21/18 20:00 Completed CMP Stat Lab 10/21/18 20:00 Completed CULTURE,URINE Stat Lab 10/21/18 19:50 Received Lactic Acid Stat Lab 10/21/18 19:53 Completed PROTIME WITH INR Stat Lab 10/21/18 20:00 Completed PTT Stat Lab 10/21/18 20:00 Completed Urinalysis with Microscopy Stat Lab 10/21/18 19:50 Completed Medication Summary Generic Name Dose Route Start Last Admin Trade Name Freq PRN Reason Stop Dose Admin Sodium Chloride 1,000 mls @ 999 mls/hr 10/21/18 20:00 10/21/18 20:51 Sodium Chloride 0.9% 1000 Ml IV 10/21/18 23:00 999 mls/hr .Q1H1M AUNG Administration Discontinued Medications Generic Name Dose Route Start Last Admin Trade Name Freq PRN Reason Stop Dose Admin Acetaminophen 975 mg 10/21/18 19:52 10/21/18 21:19 Tylenol 325 Mg PO 10/21/18 19:53 975 mg STAT STA Administration Acetaminophen Confirm 10/21/18 21:19 Tylenol 325 Mg Administered 10/21/18 21:20 Dose 975 mg .ROUTE .STK-MED ONE Ceftriaxone Sodium/Dextrose 1 g in 50 mls @ 100 mls/hr 10/21/18 19:52 20:14 Rocephin 1 Gm-D5w 50 Ml Bag IV 10/21/18 20:21 100 mls/hr STAT STA 100 mls/hr Administration Azithromycin 500 mg in 250 mls @ 250 mls/hr 10/21/18 19:56 10/21/18 20:44 Zithromax 500 Mg/ 250 Ml Nacl Premix IV 10/21/18 20:55 250 mls/hr STAT STA 250 mls/hr Administration Azithromycin Confirm 10/21/18 20:02 Zithromax 500 Mg/ 250 Ml Nacl Premix Administered 10/21/18 20:03 Dose 500 mg in 250 mls @ ud IV .STK-MED ONE Ceftriaxone Sodium/Dextrose Confirm 10/21/18 20:02 Rocephin 1 Gm-D5w 50 Ml Bag Administered 10/21/18 20:03 Dose 1 g in 50 mls @ ud IV .STK-MED ONE Lab/Rad Data: Laboratory Result Diagrams 10/21/18 20:00 10/21/18 20:00 Laboratory Results 10/21/18 10/21/18 10/21/18 Range/Units 20:00 20:00 20:00 WBC 9.2 (4.0-10.5) K/mm3 RBC 4.00 L (4.1-5.6) M/mm3 Hgb 12.3 L (12.5-18.0) gm/dl Hct 37.3 L (42-50) % MCV 93.3 (78-100) fl MCH 30.7 (26-32) pg MCHC 33.0 (32-36) g/dl RDW 13.4 (11.5-14.0) % Plt Count 125 L (150-450) K/mm3 MPV 10.7 H (6-9.5) fl Gran % 61.9 (36.0-66.0) % Eos # (Auto) 0.01 (0-0.5) Absolute Lymphs (auto) 2.60 (1.0-4.6) Absolute Monos (auto) 0.89 (0.0-1.3) Lymphocytes % 28.2 (24.0-44.0) % Monocytes % 9.6 (0.0-12.0) % Eosinophils % 0.1 (0.00-5.0) % Basophils % 0.2 (0.0-0.4) % Absolute Granulocytes 5.71 (1.4-6.9) Basophils # 0.02 (0-0.4) PT 14.0 H (8.83-12.87) SECONDS INR 1.20 (0.8-3.0) APTT 33.1 (24.1-36.1) SECONDS Sodium 135 L (137-145) mmol/L Potassium 4.7 (3.5-5.1) mmol/L Chloride 94 L (98-107) mmol/L Carbon Dioxide 31 H (22-30) mmol/L Anion Gap 14.3 (5-15) MEQ/L BUN 13 (9-20) mg/dL Creatinine 0.82 (0.66-1.25) mg/dL Estimated GFR > 60.0 ML/MIN Glucose 140 H (74-106) mg/dL Lactic Acid (0.4-2.0) Calcium 9.6 (8.4-10.2) mg/dL Total Bilirubin 0.40 (0.2-1.3) mg/dL AST 40 (17-59) U/L ALT 30 (0-50) U/L Alkaline Phosphatase 46 (38-126) U/L Serum Total Protein 6.9 (6.3-8.2) g/dL Albumin 3.8 (3.5-5.0) g/dL Urine Color (YELLOW) Urine Appearance (CLEAR) Urine pH (5-6) Ur Specific [place] (1.005-1.025) Urine Protein (Negative) Urine Ketones (NEGATIVE) Urine Blood (0-5) Perez/ul Urine Nitrite (NEGATIVE) Urine Bilirubin (NEGATIVE) Urine Urobilinogen (0-1) mg/dL Ur Leukocyte Esterase (NEGATIVE) Urine WBC (Auto) (0-5) /HPF Urine RBC (Auto) (0-2) /HPF Urine Mucus (Auto) (NEGATIVE) /HPF Urine Glucose (NEGATIVE) mg/dL 10/21/18 10/21/18 Range/Units 19:53 19:50 WBC (4.0-10.5) K/mm3 RBC (4.1-5.6) M/mm3 Hgb (12.5-18.0) gm/dl Hct (42-50) % MCV (78-100) fl MCH (26-32) pg MCHC (32-36) g/dl RDW (11.5-14.0) % Plt Count (150-450) K/mm3 MPV (6-9.5) fl Gran % (36.0-66.0) % Eos # (Auto) (0-0.5) Absolute Lymphs (auto) (1.0-4.6) Absolute Monos (auto) (0.0-1.3) Lymphocytes % (24.0-44.0) % Monocytes % (0.0-12.0) % Eosinophils % (0.00-5.0) % Basophils % (0.0-0.4) % Absolute Granulocytes (1.4-6.9) Basophils # (0-0.4) PT (8.83-12.87) SECONDS INR (0.8-3.0) APTT (24.1-36.1) SECONDS Sodium (137-145) mmol/L Potassium (3.5-5.1) mmol/L Chloride (98-107) mmol/L Carbon Dioxide (22-30) mmol/L Anion Gap (5-15) MEQ/L BUN (9-20) mg/dL Creatinine (0.66-1.25) mg/dL Estimated GFR ML/MIN Glucose (74-106) mg/dL Lactic Acid 1.5 (0.4-2.0) Calcium (8.4-10.2) mg/dL Total Bilirubin (0.2-1.3) mg/dL AST (17-59) U/L ALT (0-50) U/L Alkaline Phosphatase (38-126) U/L Serum Total Protein (6.3-8.2) g/dL Albumin (3.5-5.0) g/dL Urine Color STRAW (YELLOW) Urine Appearance CLEAR (CLEAR) Urine pH 7.0 (5-6) Ur Specific [place] 1.008 (1.005-1.025) Urine Protein NEGATIVE (Negative) Urine Ketones NEGATIVE (NEGATIVE) Urine Blood NEGATIVE (0-5) Perez/ul Urine Nitrite NEGATIVE (NEGATIVE) Urine Bilirubin NEGATIVE (NEGATIVE) Urine Urobilinogen NEGATIVE (0-1) mg/dL Ur Leukocyte Esterase NEGATIVE (NEGATIVE) Urine WBC (Auto) NONE (0-5) /HPF Urine RBC (Auto) NONE (0-2) /HPF Urine Mucus (Auto) SLIGHT (NEGATIVE) /HPF Urine Glucose NEGATIVE (NEGATIVE) mg/dL - Progress Progress: improved Progress Note: 10/21/18 21:23 Pt was started on sepsis protocol, iv saline, blood cultures, given Rocephin and Zithromax iv, improved, we called Dr Rush, covering Dr Brown, discussed this caase in details, she agreed to admit him as regular admission, patient and his sister were informed and agreed. Discussed with : Adri Will see patient in: hospital (full admit) Counseled pt/family regarding: lab results, diagnosis, rad results - Departure Time of Disposition: 21:25 Departure Disposition: In-patient Admission Clinical Impression: Pneumonia Qualifiers: Pneumonia type: due to unspecified organism Laterality: left Lung location: lower lobe of lung Qualified Code(s): J18.1 - Lobar pneumonia, unspecified organism Condition: Fair Critical Care Time: Yes Critical Care Time(excluding separately billable procedures): 30-74 minutes Referrals: CUONG BROWN [Primary Care Provider] - Instructions: Pneumonia, Adult (DC)
[2018-10-21] MEDS: Sodium Chloride 0.9% 1000 ML 1,000 ML IV SCH ×3 (20:09→23:28)
[2018-10-21] MEDS: TYLENOL 325 MG PO STA ×2 (20:11→21:19)
[2018-10-21 20:25] LABS: BASOPHIL % 0.2 % (0.0-0.4); Basophil (Absolute #) 0.02 (0-0.4); Eosinophil % 0.1 % (0.00-5.0); Eosinophil (Absolute #) 0.01 (0-0.5); Granulocyte Absolute (ANC) 5.71 (1.4-6.9); Granulocytes % 61.9 % (36.0-66.0); Hematocrit 37.3 % (42-50); Hemoglobin 12.3 gm/dl (12.5-18.0); Lymphocytes % 28.2 % (24.0-44.0); Mean Cell Volume 93.3 fl (78-100); Mean Platelet Volume 10.7 fl (6-9.5); Monocyte (Absolute #) 0.89 (0.0-1.3); Monocytes % 9.6 % (0.0-12.0); Platelet Count 125 K/mm3 (150-450); Red Cell Distribution Width 13.4 % (11.5-14.0); White Blood Count 9.2 K/mm3 (4.0-10.5)
[2018-10-21 20:30] LABS: Mean Corpuscular Hemoglobin 30.7 pg (26-32)
[2018-10-21 20:42] LABS: INR 1.2 (0.8-3.0)
[2018-10-21 20:45] LABS: PTT 33.1 SECONDS (24.1-36.1)
[2018-10-21 20:52] LABS: ALBUMIN 3.8 g/dL (3.5-5.0); ALKALINE PHOSPHATASE 46 U/L (38-126); ANION GAP 14.3 MEQ/L (5-15); BLOOD UREA NITROGEN 13 mg/dL (9-20); CHLORIDE 94 mmol/L (98-107); Calcium 9.6 mg/dL (8.4-10.2); Carbon Dioxide 31 mmol/L (22-30); Creatinine 1 0.82 mg/dL (0.66-1.25); Glucose 140 mg/dL (74-106); Potassium 4.7 mmol/L (3.5-5.1); SGOT/AST 40 U/L (17-59); SGPT/ALT 30 U/L (0-50); SODIUM 135 mmol/L (137-145); Total Protein 6.9 g/dL (6.3-8.2)
[2018-10-21 20:55] LABS: Appearance CLEAR (CLEAR); Bilirubin NEGATIVE (NEGATIVE); Blood NEGATIVE Ery/ul (0-5); Glucose NEGATIVE (NEGATIVE); Ketones NEGATIVE (NEGATIVE); Leukocyte Esterase NEGATIVE (NEGATIVE); Mucus SLIGHT /HPF (NEGATIVE); Nitrite NEGATIVE (NEGATIVE); Protein,Urine Dip NEGATIVE (Negative); Specific Gravity 1.008 (1.005-1.025); Urobilinogen NEGATIVE mg/dL (0-1)
[2018-10-21] MEDS ORDERED: TYLENOL 325 MG ONE (21:19)
[2018-10-21] MEDS ORDERED: TYLENOL 325 MG PO PRN (22:01)
[2018-10-21] MEDS ORDERED: DUONEB 0.5-3 MG/3 ml Neb IH PRN (22:01)
[2018-10-21] MEDS ORDERED: PROVENTIL 2.5 MG/3 ML NEB IH ONE (22:34)
[2018-10-21] MEDS ORDERED: Spiriva 18 Mcg/Cap Inhaler IH ONE (22:34)
[2018-10-22] MEDS: PROVENTIL 2.5 MG/3 ML NEB IH SCH ×7 (00:20→23:42)
[2018-10-22] MEDS: Sodium Chloride 0.9% 1000 ML 1,000 ML IV SCH ×3 (00:33→21:13)
[2018-10-22 06:21] LABS: BASOPHIL % 0.2 % (0.0-0.4); Basophil (Absolute #) 0.02 (0-0.4); Eosinophil % 0.1 % (0.00-5.0); Eosinophil (Absolute #) 0.01 (0-0.5); Granulocyte Absolute (ANC) 5.18 (1.4-6.9); Granulocytes % 56.3 % (36.0-66.0); Hematocrit 36.1 % (42-50); Hemoglobin 11.6 gm/dl (12.5-18.0); Lymphocyte (Absolute #) 2.96 (1.0-4.6); Lymphocytes % 32.1 % (24.0-44.0); Mean Cell Volume 93.5 fl (78-100); Mean Corpuscular Hgb Concent. 32.1 g/dl (32-36); Mean Platelet Volume 10.7 fl (6-9.5); Monocyte (Absolute #) 1.04 (0.0-1.3); Monocytes % 11.3 % (0.0-12.0); Platelet Count 117 K/mm3 (150-450); Red Blood Count 3.86 M/mm3 (4.1-5.6); Red Cell Distribution Width 13.5 % (11.5-14.0); White Blood Count 9.2 K/mm3 (4.0-10.5)
[2018-10-22 06:33] LABS: ALBUMIN 3.4 g/dL (3.5-5.0); ALKALINE PHOSPHATASE 42 U/L (38-126); ANION GAP 11.9 MEQ/L (5-15); BLOOD UREA NITROGEN 11 mg/dL (9-20); CHLORIDE 102 mmol/L (98-107); Calcium 9.2 mg/dL (8.4-10.2); Carbon Dioxide 27 mmol/L (22-30); Glucose 140 mg/dL (74-106); Potassium 4.3 mmol/L (3.5-5.1); SGOT/AST 34 U/L (17-59); SGPT/ALT 26 U/L (0-50); SODIUM 136 mmol/L (137-145); Total Protein 6.1 g/dL (6.3-8.2)
[2018-10-22] MEDS: Advair Hfa 115/21 Common canister IH SCH ×2 (07:05→19:53)
[2018-10-22] MEDS: Spiriva 18 Mcg/Cap Inhaler IH SCH (07:06)
--- NOTE | 2018-10-22 08:35 | XRAY ---
Indication: Fever and cough. Possible sepsis. Comparison: One day earlier. Portable chest demonstrates developing mild left base infiltrate/atelectasis with small effusion. Remaining heart and lungs unremarkable. Comment: Left lung findings not reported on preliminary interpretation by the ER clinician. Telephone report given to Dr. Flores at 0830 hrs. on October 22, 2018.
--- NOTE | 2018-10-22 08:45 | PCM.HP ---
History of Present Illness - Chief Complaint Chief Complaint: Pneumonia History of Present Illness: is a 63 year old male pt of Dr. Betancur with mental retardation, sz d/o , COPD, DMII, idiopathic peripheral neuropathy, GERD, asthma, and chronic back pain who was admitted through the ER with RML pneumonia. He was seen in Er lastnight, dx with pneumonia and sent home on po omnicef. He did take 2 doses. He returned to Er with HR 130s and fever to 103. Started on IV rocephin and zithromax. This morning he is still not feleing well. - Review of Systems Constitutional: Fever All Other Systems: Unable due to condition Medications & Allergies Home Medications: Home Medication List Fluticasone/Salmeterol [Advair 250-50 Diskus] 1 puff IH BID 01/01/12 [History Confirmed 10/22/18] Gabapentin 600 mg PO BID 01/01/12 [History Confirmed 10/22/18] Metformin HCl 500 mg [Glucophage 500 MG] 500 mg PO BID 01/01/12 [History Confirmed 10/22/18] Omeprazole 40 mg PO BID 01/01/12 [History Confirmed 10/22/18] Sertraline HCl 100 mg PO HS 01/01/12 [History Confirmed 10/22/18] Tiotropium [place] Inhaler [Spiriva 18 Mcg/Cap Inhaler] 18 mcg IH DAILY [History Confirmed 10/22/18] Aspirin [Aspir 81] 81 mg PO DAILY 01/20/12 [History Confirmed 10/22/18] Divalproex Sodium [Depakote] 1,000 mg PO BID 03/31/14 [History Confirmed ] Duloxetine HCl [Cymbalta] 60 mg PO BID 03/31/14 [History Confirmed 10/22/18] Ferrous Sulfate 325 mg [Feosol 325 mg] 325 mg PO BID 03/31/14 [History Confirmed 10/22/18] Mirabegron [Myrbetriq] 50 mg PO HS 03/31/14 [History Confirmed 10/22/18] Multivitamin [Multivitamins] 1 each PO DAILY 03/31/14 [History Confirmed ] Primidone 50 MG [Mysoline 50Mg] 50 mg PO TID 03/31/14 [History Confirmed ] Tamsulosin HCl 0.4 mg [Flomax 0.4 MG] 0.4 mg PO HS 03/31/14 [History Confirmed 10/22/18] Albuterol Sulfate [Proair Hfa] 2 puff IH Q4H PRN PRN 09/06/16 [History Confirmed 10/22/18] Cholecalciferol (Vitamin D3) [Vitamin D3] 1,000 unit PO DAILY 09/06/16 [History Confirmed 10/22/18] Exenatide Microspheres [Bydureon Pen] 2 mg SQ WEEKLY 09/06/16 [History Confirmed 10/22/18] Hydrocodone/APAP 10/325 mg [[place] 10/325 MG Tablet] 1 tab PO Q4H PRN PRN 09/06/16 [History Confirmed 10/22/18] Naproxen [Naprosyn] 500 mg PO BID 09/06/16 [History Confirmed 10/22/18] Albuterol Sulfate 0.63 mg IH TID 09/07/16 [History Confirmed 10/22/18] Sennosides [Senna Laxative] 8.6 mg PO UD PRN 09/07/16 [History Confirmed ] Alprazolam 1 mg [Xanax 1 mg] 1 mg PO BID PRN 11/14/17 [History Confirmed 10/22/18] Cefdinir 300 mg PO BID 7 Days #14 capsule 10/20/18 [Rx Confirmed 10/22/18] Allergies/Adverse Reactions: Allergies Allergy/AdvReac Type Severity Reaction Status Date / Time bee venom protein (honey bee) Allergy Verified 01/17/18 15:23 - Past Medical History Past Medical History: Yes Neurological History: Seizures ENT History: No Pertinent History Cardiac History: Hypertension Respiratory History: Asthma, COPD Endocrine Medical History: Diabetes Type II Musculoskelatal History: Osteoarthritis GI Medical History: Hernia History: Other Pyscho-Social History: Depression, Other Male Reproductive Disorders: No Pertinent History Comment: SEE HX IN CHART, sees urologist for incontinence - Past Surgical History Past Surgical History: Yes Neuro Surgical History: No Pertinent History Cardiac History: No Pertinent History Respiratory Surgery: No Pertinent History GI Surgical History: Hernia Repair, Other Genitourinary Surgical Hx: No Pertinent History Musculskeletal Surgical Hx: No Pertinent History Male Surgical History: No Pertinent History Other Surgical History: right side inguinal hernia surgery 1987. nose operation 1991. ABDOMINAL CYST - Social History Smoking Status: Former smoker How long have you smoked: UNSURE Exposure to second hand smoke: No Alcohol: None Drug Use: none - Physical Exam Vital Signs: Vital Signs - 24 hr Temp Pulse Resp BP Pulse Ox 10/22/18 07:32 106 H 26 H 91 L 10/22/18 07:06 98.7 F 103 H 18 144/59 93 L 10/22/18 04:00 100.0 F 111 H 20 117/56 92 L 10/22/18 03:57 109 H 20 92 L 10/22/18 03:15 20 10/22/18 00:20 118 H 20 90 L 10/21/18 23:49 99.3 F 125 H 20 136/61 93 L 10/21/18 22:19 99.3 F 125 H 20 136/61 93 L 10/21/18 21:25 94 L 10/21/18 21:16 102.2 F 132 H 26 H 140/68 93 L 10/21/18 20:42 92 L 10/21/18 20:27 122 H 20 143/78 93 L 10/21/18 19:42 103.1 F 144 H 20 173/94 94 L Oxygen-Last 24 hours O2 Percentage 3 Liters = 32% O2 Percentage 3 Liters = 32% O2 Percentage 3 Liters = 32% O2 Percentage 3 Liters = 32% O2 Percentage 3 Liters = 32% O2 Percentage 2 Liters = 28% General Appearance: no apparent distress, alert Neurologic Exam: cooperative, other (MR. conversant.) Eye Exam: eyes nml inspection Ears, Nose, Throat Exam: moist mucous membranes Neck Exam: normal inspection Respiratory Exam: diminished breath sounds, prolonged expirations, wheezing ( throughout), No crackles/rales, No rhonchi Cardiovascular Exam: regular rate/rhythm, normal heart sounds, No murmur Gastrointestinal/Abdomen Exam: soft, normal bowel sounds, No tenderness, No distention, No mass, No guarding, No rebound Back Exam: normal inspection, No rash Skin Exam: normal color, warm, diaphoresis, No rash Results - Labs Lab/Micro Results: Accuchecks Date 10/22/18 Time 07:30 Accucheck Value: 140 Lab Results-Last 24 Hours 10/21/18 10/21/18 10/21/18 Range/Units 19:50 19:53 20:00 WBC 9.2 (4.0-10.5) K/mm3 RBC 4.00 L (4.1-5.6) M/mm3 Hgb 12.3 L (12.5-18.0) gm/dl Hct 37.3 L (42-50) % MCV 93.3 (78-100) fl MCH 30.7 (26-32) pg MCHC 33.0 (32-36) g/dl RDW 13.4 (11.5-14.0) % Plt Count 125 L (150-450) K/mm3 MPV 10.7 H (6-9.5) fl Gran % 61.9 (36.0-66.0) % Eos # (Auto) 0.01 (0-0.5) Absolute Lymphs (auto) 2.60 (1.0-4.6) Absolute Monos (auto) 0.89 (0.0-1.3) Lymphocytes % 28.2 (24.0-44.0) % Monocytes % 9.6 (0.0-12.0) % Eosinophils % 0.1 (0.00-5.0) % Basophils % 0.2 (0.0-0.4) % Absolute Granulocytes 5.71 (1.4-6.9) Basophils # 0.02 (0-0.4) PT (8.83-12.87) SECONDS INR (0.8-3.0) APTT (24.1-36.1) SECONDS Sodium (137-145) mmol/L Potassium (3.5-5.1) mmol/L Chloride (98-107) mmol/L Carbon Dioxide (22-30) mmol/L Anion Gap (5-15) MEQ/L BUN (9-20) mg/dL Creatinine (0.66-1.25) mg/dL Estimated GFR ML/MIN Glucose (74-106) mg/dL Lactic Acid 1.5 (0.4-2.0) Calcium (8.4-10.2) mg/dL Total Bilirubin (0.2-1.3) mg/dL AST (17-59) U/L ALT (0-50) U/L Alkaline Phosphatase (38-126) U/L Serum Total Protein (6.3-8.2) g/dL Albumin (3.5-5.0) g/dL Urine Color STRAW (YELLOW) Urine Appearance CLEAR (CLEAR) Urine pH 7.0 (5-6) Ur Specific [place] 1.008 (1.005-1.025) Urine Protein NEGATIVE (Negative) Urine Ketones NEGATIVE (NEGATIVE) Urine Blood NEGATIVE (0-5) Perez/ul Urine Nitrite NEGATIVE (NEGATIVE) Urine Bilirubin NEGATIVE (NEGATIVE) Urine Urobilinogen NEGATIVE (0-1) mg/dL Ur Leukocyte Esterase NEGATIVE (NEGATIVE) Urine WBC (Auto) NONE (0-5) /HPF Urine RBC (Auto) NONE (0-2) /HPF Urine Mucus (Auto) SLIGHT (NEGATIVE) /HPF Urine Glucose NEGATIVE (NEGATIVE) mg/dL 10/21/18 10/21/18 10/22/18 Range/Units 20:00 20:00 05:46 WBC 9.2 (4.0-10.5) K/mm3 RBC 3.86 L (4.1-5.6) M/mm3 Hgb 11.6 L (12.5-18.0) gm/dl Hct 36.1 L (42-50) % MCV 93.5 (78-100) fl MCH 30.0 (26-32) pg MCHC 32.1 (32-36) g/dl RDW 13.5 (11.5-14.0) % Plt Count 117 L (150-450) K/mm3 MPV 10.7 H (6-9.5) fl Gran % 56.3 (36.0-66.0) % Eos # (Auto) 0.01 (0-0.5) Absolute Lymphs (auto) 2.96 (1.0-4.6) Absolute Monos (auto) 1.04 (0.0-1.3) Lymphocytes % 32.1 (24.0-44.0) % Monocytes % 11.3 (0.0-12.0) % Eosinophils % 0.1 (0.00-5.0) % Basophils % 0.2 (0.0-0.4) % Absolute Granulocytes 5.18 (1.4-6.9) Basophils # 0.02 (0-0.4) PT 14.0 H (8.83-12.87) SECONDS INR 1.20 (0.8-3.0) APTT 33.1 (24.1-36.1) SECONDS Sodium 135 L (137-145) mmol/L Potassium 4.7 (3.5-5.1) mmol/L Chloride 94 L (98-107) mmol/L Carbon Dioxide 31 H (22-30) mmol/L Anion Gap 14.3 (5-15) MEQ/L BUN 13 (9-20) mg/dL Creatinine 0.82 (0.66-1.25) mg/dL Estimated GFR > 60.0 ML/MIN Glucose 140 H (74-106) mg/dL Lactic Acid (0.4-2.0) Calcium 9.6 (8.4-10.2) mg/dL Total Bilirubin 0.40 (0.2-1.3) mg/dL AST 40 (17-59) U/L ALT 30 (0-50) U/L Alkaline Phosphatase 46 (38-126) U/L Serum Total Protein 6.9 (6.3-8.2) g/dL Albumin 3.8 (3.5-5.0) g/dL Urine Color (YELLOW) Urine Appearance (CLEAR) Urine pH (5-6) Ur Specific [place] (1.005-1.025) Urine Protein (Negative) Urine Ketones (NEGATIVE) Urine Blood (0-5) Perez/ul Urine Nitrite (NEGATIVE) Urine Bilirubin (NEGATIVE) Urine Urobilinogen (0-1) mg/dL Ur Leukocyte Esterase (NEGATIVE) Urine WBC (Auto) (0-5) /HPF Urine RBC (Auto) (0-2) /HPF Urine Mucus (Auto) (NEGATIVE) /HPF Urine Glucose (NEGATIVE) mg/dL 10/22/18 10/22/18 Range/Units 05:46 06:05 WBC (4.0-10.5) K/mm3 RBC (4.1-5.6) M/mm3 Hgb (12.5-18.0) gm/dl Hct (42-50) % MCV (78-100) fl MCH (26-32) pg MCHC (32-36) g/dl RDW (11.5-14.0) % Plt Count (150-450) K/mm3 MPV (6-9.5) fl Gran % (36.0-66.0) % Eos # (Auto) (0-0.5) Absolute Lymphs (auto) (1.0-4.6) Absolute Monos (auto) (0.0-1.3) Lymphocytes % (24.0-44.0) % Monocytes % (0.0-12.0) % Eosinophils % (0.00-5.0) % Basophils % (0.0-0.4) % Absolute Granulocytes (1.4-6.9) Basophils # (0-0.4) PT (8.83-12.87) SECONDS INR (0.8-3.0) APTT (24.1-36.1) SECONDS Sodium 136 L (137-145) mmol/L Potassium 4.3 (3.5-5.1) mmol/L Chloride 102 (98-107) mmol/L Carbon Dioxide 27 (22-30) mmol/L Anion Gap 11.9 (5-15) MEQ/L BUN 11 (9-20) mg/dL Creatinine 0.80 (0.66-1.25) mg/dL Estimated GFR > 60.0 ML/MIN Glucose 140 H (74-106) mg/dL Lactic Acid 0.9 (0.4-2.0) Calcium 9.2 (8.4-10.2) mg/dL Total Bilirubin 0.30 (0.2-1.3) mg/dL AST 34 (17-59) U/L ALT 26 (0-50) U/L Alkaline Phosphatase 42 (38-126) U/L Serum Total Protein 6.1 L (6.3-8.2) g/dL Albumin 3.4 L (3.5-5.0) g/dL Urine Color (YELLOW) Urine Appearance (CLEAR) Urine pH (5-6) Ur Specific [place] (1.005-1.025) Urine Protein (Negative) Urine Ketones (NEGATIVE) Urine Blood (0-5) Perez/ul Urine Nitrite (NEGATIVE) Urine Bilirubin (NEGATIVE) Urine Urobilinogen (0-1) mg/dL Ur Leukocyte Esterase (NEGATIVE) Urine WBC (Auto) (0-5) /HPF Urine RBC (Auto) (0-2) /HPF Urine Mucus (Auto) (NEGATIVE) /HPF Urine Glucose (NEGATIVE) mg/dL Accuchecks Date 10/22/18 Time 07:30 Accucheck Value: 140 - Radiology Impressions Radiology Exams & Impressions: Radiology Procedures Category Date Time Status CHEST 1 VIEW (PORTABLE) Stat Exams 10/21/18 19:53 Completed - Other Procedures and Tests Respiratory Therapy 10/21/18 22:01 Oxygen Nasal Cannula 2 lpm 10/21/18 23:10 Respiratory Therapy Assessment DAILY 10/22/18 01:14 Respiratory MDI BID Assessment/Plan (1) Asthma Current Visit: Yes Status: Acute Code(s): J45.909 - UNSPECIFIED ASTHMA, UNCOMPLICATED (2) Pneumonia Current Visit: Yes Status: Acute Qualifiers: Pneumonia type: due to unspecified organism Laterality: left Lung location: lower lobe of lung Qualified Code(s): J18.1 - Lobar pneumonia, unspecified organism Code(s): J18.9 - PNEUMONIA, UNSPECIFIED ORGANISM (3) Diabetes mellitus Current Visit: No Status: Chronic Qualifiers: Diabetes mellitus type: type 2 Diabetes mellitus meterman insulin use: without meterman use Diabetes mellitus complication detail: with unspecified neuropathy Code(s): E11.9 - TYPE 2 DIABETES MELLITUS WITHOUT COMPLICATIONS (4) Seizure disorder Current Visit: No Status: Chronic Code(s): G40.909 - EPILEPSY, UNSP, NOT INTRACTABLE, WITHOUT STATUS EPILEPTICUS (5) History of aspiration pneumonia Current Visit: Yes Status: Acute Assessment & Plan: Per swallow study (on the chart) on honey thickened liquids Code(s): Z87.01 - PERSONAL HISTORY OF PNEUMONIA (RECURRENT)
[2018-10-22] MEDS ORDERED: Norco 10/325 MG Tablet PO PRN (09:53)
[2018-10-22] MEDS ORDERED: Naprosyn 500 MG PO PRN (09:53)
[2018-10-22] MEDS ORDERED: XANAX 1 MG PO PRN (09:53)
[2018-10-22] MEDS ORDERED: NON-FORMULARY ITEM (Divalproex Sodium [Depakote] 1,000 MG) PO SCH (10:00)
[2018-10-22] MEDS ORDERED: NON-FORMULARY ITEM (Duloxetine Hcl [Cymbalta] 60 MG) PO SCH (10:00)
[2018-10-22] MEDS ORDERED: NON-FORMULARY ITEM (Gabapentin [Gabapentin] 600 MG) PO SCH (10:00)
[2018-10-22] MEDS ORDERED: NON-FORMULARY ITEM (Omeprazole [Omeprazole] 40 MG) PO SCH (10:00)
[2018-10-22] MEDS ORDERED: Pepto-Bismol PO PRN (10:06)
[2018-10-22] MEDS: NEURONTIN 300 MG PO SCH ×2 (10:18→22:52)
[2018-10-22] MEDS: ECOTRIN 81 MG PO SCH (10:18)
[2018-10-22] MEDS: Protonix 40MG Tablet PO SCH ×2 (10:18→22:53)
[2018-10-22] MEDS: FEOSOL 325 MG PO SCH ×2 (10:18→22:53)
[2018-10-22] MEDS: Cymbalta 30 MG Capsule PO SCH ×2 (10:18→22:52)
[2018-10-22] MEDS: MYSOLINE 50MG PO SCH ×3 (10:19→22:53)
[2018-10-22] MEDS ORDERED: MEDICATION INTERVENTION MC SCH (10:30)
[2018-10-22] MEDS: solu-MEDROL 40 MG IV SCH ×3 (10:32→22:44)
[2018-10-22] MEDS: NovoLOG Insulin SQ PRN ×2 (17:39→22:50)
[2018-10-22] MEDS ORDERED: NON-FORMULARY ITEM (Sertraline Hcl [Sertraline Hcl] 100 MG) PO SCH (22:00)
[2018-10-22] MEDS ORDERED: NON-FORMULARY ITEM (Mirabegron [Myrbetriq] 50 MG) PO SCH (22:00)
[2018-10-22] MEDS: ROCEPHIN 1 Gm-D5w 50 ml Bag** 1 G/50 ML IVPB IV SCH (22:45)
[2018-10-22] MEDS: Flomax 0.4 MG PO SCH (22:52)
[2018-10-22] MEDS: ZOLOFT 50 MG TABLET PO SCH (22:52)
[2018-10-22] MEDS: Zithromax 500 MG/ 250 ML NaCl Premix 500 MG/250 ML IVPB IV SCH (23:22)
[2018-10-23] MEDS: PROVENTIL 2.5 MG/3 ML NEB IH SCH ×6 (03:26→23:24)
[2018-10-23] MEDS: Advair Hfa 115/21 Common canister IH SCH ×2 (06:53→19:20)
[2018-10-23] MEDS: Spiriva 18 Mcg/Cap Inhaler IH SCH (06:56)
[2018-10-23] MEDS: solu-MEDROL 40 MG IV SCH (06:59)
--- NOTE | 2018-10-23 08:38 | PCM.NOTE ---
Date and Time: 10/23/18833 Subjective Assessment: Pt doesn't endorse feeling as poorly as he did, just says he doesn't want to go home yet. Was up coughing much of the night. - Review of Systems Constitutional: No Fever Respiratory: Cough Objective Exam General Appearance: no apparent distress, obese Neurologic Exam: alert, cooperative Skin Exam: normal color, warm, dry, No rash Respiratory Exam: diminished breath sounds, wheezing (throughout), No crackles/ rales, No rhonchi Cardiovascular Exam: regular rate/rhythm, normal heart sounds, No murmur Back Exam: normal inspection, No rash OBJECTIVE DATA Vital Signs: Vital Signs - 24 hr Temp Pulse Resp BP Pulse Ox 10/23/18 08:05 99.8 F 104 H 22 130/70 91 L 10/23/18 07:00 17 10/23/18 06:58 89 17 90 L 10/23/18 03:52 98.7 F 92 H 22 137/63 91 L 10/23/18 03:26 87 22 93 L 10/23/18 03:00 22 10/23/18 00:22 98.5 F 90 26 H 131/59 95 10/22/18 23:42 86 14 92 L 10/22/18 23:00 26 H 10/22/18 21:45 97.7 F 89 19 118/58 94 L 10/22/18 20:00 97.7 F 89 19 118/58 94 L 10/22/18 19:51 85 20 96 10/22/18 19:00 19 10/22/18 15:48 98.6 F 100 H 18 131/59 98 10/22/18 15:34 100 H 22 89 L 10/22/18 15:00 18 10/22/18 11:59 98.4 F 100 H 18 123/58 92 L 10/22/18 11:29 98 H 18 88 L 10/22/18 11:00 22 Oxygen-Last 24 hours O2 Percentage 3 Liters = 32% O2 Percentage 2 Liters = 28% O2 Percentage 2 Liters = 28% O2 Percentage 2 Liters = 28% O2 Percentage 3 Liters = 32% O2 Percentage 3 Liters = 32% Oxygen Flowrate (L/min)-RT 2 Pain Assessment - Last Documented Pain Intensity 0 Pain Scale Used 0-10 Pain Scale Intake and Output: Intake & Output 10/20/18 10/21/18 10/22/18 10/23/18 11:59 11:59 11:59 11:59 Intake Total 1838 1620 Output Total 8654 2393 Balance -1389 -1205 Weight 84.9 kg Lab Results: Accuchecks Date 10/22/18 Date 10/22/18 Date 10/22/18 Time 21:00 Time 16:30 Time 11:30 Accucheck Value: 277 Accucheck Value: 253 Accucheck Value: 145 Radiology Exams: Radiology Procedures Category Date Time Status CHEST 1 VIEW (PORTABLE) Stat Exams 10/21/18 19:53 Completed Assessment/Plan (1) Pneumonia Current Visit: Yes Status: Acute Qualifiers: Pneumonia type: due to unspecified organism Laterality: left Lung location: lower lobe of lung Qualified Code(s): J18.1 - Lobar pneumonia, unspecified organism Assessment & Plan: On rocephin and zithromax day #3. Pt acts like he's feeling better, I think he was just afraid if he admitted that he would be sent home too early. Add Tussionex for cough. Code(s): J18.9 - PNEUMONIA, UNSPECIFIED ORGANISM (2) Asthma Current Visit: Yes Status: Acute Qualifiers: Asthma severity: unspecified severity Asthma persistence: persistent Asthma complication type: with acute exacerbation Qualified Code(s): J45.901 - Unspecified asthma with (acute) exacerbation Assessment & Plan: increase steroid from 40mg TID to 80mg QID as the wheezing may be slightly decreased but is still present throughout all lung fuentes. Code(s): J45.909 - UNSPECIFIED ASTHMA, UNCOMPLICATED (3) Diabetes mellitus Current Visit: No Status: Chronic Qualifiers: Diabetes mellitus type: type 2 Diabetes mellitus intermediate card tender insulin use: without senior living use Diabetes mellitus complication detail: with unspecified neuropathy Assessment & Plan: BS [id number] - cover with SS insulin. Code(s): E11.9 - TYPE 2 DIABETES MELLITUS WITHOUT COMPLICATIONS (4) Seizure disorder Current Visit: No Status: Chronic Code(s): G40.909 - EPILEPSY, UNSP, NOT INTRACTABLE, WITHOUT STATUS EPILEPTICUS (5) History of aspiration pneumonia Current Visit: Yes Status: Chronic Code(s): Z87.01 - PERSONAL HISTORY OF PNEUMONIA (RECURRENT)
[2018-10-23] MEDS ORDERED: solu-MEDROL 40 MG IV SCH (08:45)
[2018-10-23] MEDS: Sodium Chloride 0.9% 1000 ML 1,000 ML IV SCH ×2 (09:16→17:48)
[2018-10-23] MEDS: Tussionex Pennkinetic Susp PO PRN (09:21)
[2018-10-23] MEDS: FEOSOL 325 MG PO SCH ×2 (09:22→21:37)
[2018-10-23] MEDS: Protonix 40MG Tablet PO SCH ×2 (09:22→21:37)
[2018-10-23] MEDS: Cymbalta 30 MG Capsule PO SCH ×2 (09:23→21:37)
[2018-10-23] MEDS: ECOTRIN 81 MG PO SCH (09:25)
[2018-10-23] MEDS: NEURONTIN 300 MG PO SCH ×2 (09:31→21:37)
[2018-10-23] MEDS: MYSOLINE 50MG PO SCH ×3 (10:26→21:37)
[2018-10-23] MEDS: NovoLOG Insulin SQ PRN ×3 (10:27→17:50)
[2018-10-23] MEDS: solu-MEDROL 125 MG IV SCH ×2 (11:56→17:49)
[2018-10-23] MEDS: Zithromax 500 MG/ 250 ML NaCl Premix 500 MG/250 ML IVPB IV SCH (21:36)
[2018-10-23] MEDS: ROCEPHIN 1 Gm-D5w 50 ml Bag** 1 G/50 ML IVPB IV SCH (21:36)
[2018-10-23] MEDS: ZOLOFT 50 MG TABLET PO SCH (21:37)
[2018-10-23] MEDS: Flomax 0.4 MG PO SCH (21:37)
[2018-10-24] MEDS: solu-MEDROL 125 MG IV SCH ×2 (00:07→06:38)
[2018-10-24] MEDS: PROVENTIL 2.5 MG/3 ML NEB IH SCH ×6 (03:35→23:23)
[2018-10-24] MEDS: Tussionex Pennkinetic Susp PO PRN (04:05)
[2018-10-24] MEDS: Sodium Chloride 0.9% 1000 ML 1,000 ML IV SCH (07:54)
[2018-10-24] MEDS: Advair Hfa 115/21 Common canister IH SCH ×2 (08:00→19:24)
[2018-10-24] MEDS: Spiriva 18 Mcg/Cap Inhaler IH SCH (08:00)
[2018-10-24] MEDS: NovoLOG Insulin SQ PRN ×4 (10:01→21:53)
[2018-10-24] MEDS: Protonix 40MG Tablet PO SCH ×2 (10:01→21:53)
[2018-10-24] MEDS: Cymbalta 30 MG Capsule PO SCH ×2 (10:01→21:51)
[2018-10-24] MEDS: FEOSOL 325 MG PO SCH ×2 (10:01→21:52)
[2018-10-24] MEDS: NEURONTIN 300 MG PO SCH ×2 (10:01→21:53)
[2018-10-24] MEDS: MYSOLINE 50MG PO SCH ×3 (10:01→21:52)
[2018-10-24] MEDS: ECOTRIN 81 MG PO SCH (10:01)
[2018-10-24] MEDS ORDERED: solu-MEDROL 125 MG IV SCH (11:30)
[2018-10-24] MEDS ORDERED: solu-MEDROL 40 MG IV SCH ×2 (11:45→18:00)
--- NOTE | 2018-10-24 12:03 | PCM.NOTE ---
Date and Time: 10/24/18 1202 Subjective Assessment: doing better - Review of Systems Constitutional: No Fever, No Chills Eyes: No Symptoms Ears, Nose, & Throat: No Symptoms Respiratory: No Cough, No Short Of Breath Cardiac: No Chest Pain, No Edema, No Syncope Abdominal/Gastrointestinal: No Abdominal Pain, No Nausea, No Vomiting, No Diarrhea Genitourinary Symptoms: No Dysuria Musculoskeletal: No Back Pain, No Neck Pain Skin: No Rash Neurological: No Dizziness, No Focal Weakness, No Sensory Changes Psychological: No Symptoms Endocrine: No Symptoms Hematologic/Lymphatic: No Symptoms Immunological/Allergic: No Symptoms Objective Exam General Appearance: no apparent distress, alert Neurologic Exam: alert, oriented x 3, cooperative, normal mood/affect, nml cerebellar function, sensation nml, No motor deficits Skin Exam: normal color, warm, dry Eye Exam: PERRL, EOMI, eyes nml inspection Ears, Nose, Throat Exam: normal ENT inspection, pharynx normal, moist mucous membranes Neck Exam: normal inspection, non-tender, supple, full range of motion Respiratory Exam: normal breath sounds, lungs clear, No respiratory distress Cardiovascular Exam: regular rate/rhythm, normal heart sounds Gastrointestinal/Abdomen Exam: soft, No tenderness, No mass Extremity Exam: normal inspection, normal range of motion Back Exam: normal inspection, normal range of motion, No CVA tenderness, No vertebral tenderness Male Genitalia Exam: deferred Rectal Exam: deferred OBJECTIVE DATA Vital Signs: Vital Signs - 24 hr Temp Pulse Resp BP Pulse Ox 10/24/18 11:08 102 H 18 94 L 10/24/18 11:00 18 10/24/18 08:01 88 20 91 L 10/24/18 07:50 98.5 F 81 16 147/73 93 L 10/24/18 07:00 20 10/24/18 04:55 98.5 F 86 17 145/67 90 L 10/24/18 03:39 89 20 91 L 10/24/18 03:00 17 10/24/18 00:47 98.3 F 90 18 149/79 90 L 10/23/18 23:26 80 18 94 L 10/23/18 23:00 18 10/23/18 20:27 98.5 F 80 18 151/69 94 L 10/23/18 19:16 85 18 90 L 03/29/19 19:00 18 10/23/18 17:00 99 F 93 H 20 121/56 96 10/23/18 15:14 94 H 20 92 L 10/23/18 15:00 20 10/23/18 13:00 98.6 F 105 H 18 127/60 90 L Oxygen-Last 24 hours O2 Percentage 4 Liters = 36% O2 Percentage 3 Liters = 32% O2 Percentage 3 Liters = 32% O2 Percentage 3 Liters = 32% O2 Percentage 3 Liters = 32% Pain Assessment - Last Documented Pain Intensity 0 Pain Scale Used 0-10 Pain Scale,FLACC Intake and Output: Intake & Output 10/22/18 10/23/18 10/24/18 10/25/18 11:59 11:59 11:59 11:59 Intake Total 1836 1620 1920 Output Total 3225 3375 3200 Balance -9761 -1701 -1280 Weight 84.9 kg 84.9 kg Lab Results: Accuchecks Date 10/24/18 Date 10/23/18 Date 10/23/18 Time 07:30 Time 20:00 Time 16:30 Accucheck Value: 181 Accucheck Value: 351 Accucheck Value: 297 Assessment/Plan (1) Pneumonia Current Visit: Yes Status: Acute Qualifiers: Pneumonia type: aspiration pneumonia Laterality: left Lung location: lower lobe of lung Assessment & Plan: improving. Continue present ABx regimen Code(s): J18.9 - PNEUMONIA, UNSPECIFIED ORGANISM (2) History of aspiration pneumonia Current Visit: Yes Status: Chronic Code(s): Z87.01 - PERSONAL HISTORY OF PNEUMONIA (RECURRENT) (3) Acute exacerbation of extrinsic asthma Current Visit: No Status: Acute Code(s): J45.901 - UNSPECIFIED ASTHMA WITH ( ACUTE) EXACERBATION (4) Right middle lobe pulmonary infiltrate Current Visit: No Status: Acute Code(s): R91.8 - OTHER NONSPECIFIC ABNORMAL FINDING OF LUNG FIELD (5) Diabetes mellitus Current Visit: No Status: Chronic Qualifiers: Diabetes mellitus type: type 2 Diabetes mellitus terminal carman insulin use: without usp use Diabetes mellitus complication detail: with unspecified neuropathy Code(s): E11.9 - TYPE 2 DIABETES MELLITUS WITHOUT COMPLICATIONS
[2018-10-24] MEDS: Flomax 0.4 MG PO SCH (21:52)
[2018-10-24] MEDS: ZOLOFT 50 MG TABLET PO SCH (21:53)
[2018-10-24] MEDS: solu-MEDROL 40 MG IV SCH (21:53)
[2018-10-24] MEDS: ROCEPHIN 1 Gm-D5w 50 ml Bag** 1 G/50 ML IVPB IV SCH (21:53)
[2018-10-24] MEDS: Zithromax 500 MG/ 250 ML NaCl Premix 500 MG/250 ML IVPB IV SCH (23:03)
[2018-10-25] MEDS: PROVENTIL 2.5 MG/3 ML NEB IH SCH ×6 (03:11→23:59)
[2018-10-25] MEDS: Sodium Chloride 0.9% 1000 ML 1,000 ML IV SCH (03:53)
[2018-10-25] MEDS: Advair Hfa 115/21 Common canister IH SCH ×2 (07:37→19:24)
[2018-10-25] MEDS: Spiriva 18 Mcg/Cap Inhaler IH SCH (07:39)
--- NOTE | 2018-10-25 08:11 | PCM.NOTE ---
Date and Time: 10/25/18809 Subjective Assessment: doing better - Review of Systems Constitutional: No Fever, No Chills Eyes: No Symptoms Ears, Nose, & Throat: No Symptoms Respiratory: No Cough, No Short Of Breath Cardiac: No Chest Pain, No Edema, No Syncope Abdominal/Gastrointestinal: No Abdominal Pain, No Nausea, No Vomiting, No Diarrhea Genitourinary Symptoms: No Dysuria Musculoskeletal: No Back Pain, No Neck Pain Skin: No Rash Neurological: No Dizziness, No Focal Weakness, No Sensory Changes Psychological: No Symptoms Endocrine: No Symptoms Hematologic/Lymphatic: No Symptoms Immunological/Allergic: No Symptoms Objective Exam General Appearance: no apparent distress, alert Neurologic Exam: alert, oriented x 3, cooperative, normal mood/affect, nml cerebellar function, sensation nml, No motor deficits Skin Exam: normal color, warm, dry Eye Exam: PERRL, EOMI, eyes nml inspection Ears, Nose, Throat Exam: normal ENT inspection, pharynx normal, moist mucous membranes Neck Exam: normal inspection, non-tender, supple, full range of motion Respiratory Exam: diminished breath sounds, rhonchi, No respiratory distress Cardiovascular Exam: regular rate/rhythm, normal heart sounds Gastrointestinal/Abdomen Exam: soft, No tenderness, No mass Extremity Exam: normal inspection, normal range of motion Back Exam: normal inspection, normal range of motion, No CVA tenderness, No vertebral tenderness Male Genitalia Exam: deferred Rectal Exam: deferred OBJECTIVE DATA Vital Signs: Vital Signs - 24 hr Temp Pulse Resp BP Pulse Ox 10/25/18 07:50 98.4 F 69 20 139/87 92 L 10/25/18 07:39 69 20 92 L 10/25/18 05:00 98.4 F 77 20 138/66 95 10/25/18 03:14 77 20 95 10/25/18 00:09 98.8 F 77 18 138/65 96 10/25/18 00:00 74 18 94 L 10/24/18 21:00 98.5 F 85 19 142/63 94 L 10/24/18 19:27 72 18 92 L 10/24/18 17:00 98.1 F 86 16 133/62 90 L 10/24/18 15:09 78 18 96 10/24/18 15:00 17 10/24/18 13:00 98.2 F 102 H 17 150/66 94 L 10/24/18 11:08 102 H 18 94 L 10/24/18 11:00 18 Oxygen-Last 24 hours O2 Percentage 3 Liters = 32% O2 Percentage 4 Liters = 36% O2 Percentage 4 Liters = 36% O2 Percentage 4 Liters = 36% O2 Percentage 4 Liters = 36% Oxygen Flowrate (L/min)-RT 4 Pain Assessment - Last Documented Pain Intensity 0 Pain Scale Used 0-10 Pain Scale,FLACC Intake and Output: Intake & Output 10/22/18 10/23/18 10/24/18 10/25/18 11:59 11:59 11:59 11:59 Intake Total 1836 1620 1920 2019 Output Total 3229 7935 3200 2655 Balance -1359 -1755 -1280 -636 Weight 84.9 kg 84.9 kg Lab Results: Accuchecks Date 10/24/18 Date 10/24/18 Time 16:30 Time 11:30 Accucheck Value: 247 Accucheck Value: 293 Accucheck Value: 401 Assessment/Plan (1) Pneumonia Current Visit: Yes Status: Acute Qualifiers: Pneumonia type: aspiration pneumonia Laterality: left Lung location: lower lobe of lung Assessment & Plan: Respiratory Therapy 10/24/18 07:55 Peak Expiratory Flow Rate ONCE Last Vital Signs Temp 98.4 F 10/25/18 07:50 Pulse 69 10/25/18 07:50 Resp 20 10/25/18 07:50 BP 139/87 10/25/18 07:50 Pulse Ox 92 L 10/25/18 07:50 Allergies bee venom protein (honey bee) Allergy (Verified 01/17/18 15:23) Active Medications Acetaminophen (Tylenol 325 Mg) 650 mg PO Q4H PRN PRN PRN Reason: PAIN AND/OR FEVER Stop: 11/20/18 22:00 Hydrocodone Bitart/Acetaminophen ([place] 10/325 Mg Tablet) 1 tab PO Q4H PRN PRN PRN Reason: PAIN Stop: 10/27/18 09:52 Albuterol Sulfate (Proventil 2.5 Mg/3 Ml Neb) 2.5 mg IH Q4HRT [facility]G Stop: 11/20/18 22:59 Last Admin: 10/25/18 07:37 Dose: 2.5 mg Alprazolam (Xanax 1 Mg) 1 mg PO BID PRN PRN PRN Reason: ANXIETY Stop: 11/21/18 09:52 Aspirin (Ecotrin 81 Mg) 81 mg PO DAILY [facility] Stop: 11/21/18 09:59 Last Admin: 10/24/18 10:01 Dose: 81 mg Bismuth Subsalicylate (Pepto-Bismol) 262 - 524 mg PO TID PRN PRN PRN Reason: INDIGESTION Stop: 11/21/18 10:05 Chlorphenir/Hydrocodone Polistirex (Tussionex Pennkinetic Susp) 5 ml PO BID PRN PRN PRN Reason: COUGH Stop: 10/28/18 08:37 Last Admin: 10/24/18 04:05 Dose: 5 ml Divalproex Sodium (Divalproex Dr 250 Mg Tab) 1,000 mg PO BID [facility] Stop: 11/21/18 09:59 Last Admin: 10/24/18 21:52 Dose: 1,000 mg Duloxetine HCl (Cymbalta 30 Mg Capsule) 60 mg PO BID [facility] Stop: 11/21/18 10:14 Last Admin: 10/24/18 21:51 Dose: 60 mg Ferrous Sulfate (Feosol 325 Mg) 325 mg PO BID [facility] Stop: 11/21/18 09:59 Last Admin: 10/24/18 21:52 Dose: 325 mg Gabapentin (Neurontin 300 Mg) 600 mg PO BID [facility] Stop: 11/21/18 10:14 Last Admin: 10/24/18 21:53 Dose: 600 mg Azithromycin (Zithromax 500 Mg/ 250 Ml Nacl Premix) 500 mg in 250 mls @ 250 mls /hr IV Q24H22 [facility] Stop: 11/21/18 21:59 Last Admin: 10/24/18 23:03 Dose: 250 mls/hr Ceftriaxone Sodium/Dextrose (Rocephin 1 Gm-D5w 50 Ml Bag) 1 g in 50 mls @ 100 mls/hr IV Q24H22 [facility] Stop: 11/21/18 21:59 Last Admin: 10/24/18 21:53 Dose: 100 mls/hr Sodium Chloride (Sodium Chloride 0.9% 1000 Ml) 1,000 mls @ 100 mls/hr IV .Q10H [facility] Stop: 11/20/18 22:00 Last Admin: 10/25/18 03:53 Dose: 100 mls/hr Insulin Aspart (Novolog Insulin) 0 unit SQ UD PRN PRN Reason: HYPERGLYCEMIA Stop: 11/20/18 22:00 Last Admin: 10/24/18 21:53 Dose: 5 unit Methylprednisolone Sodium Succinate (Solu-Medrol 40 Mg) 40 mg IV Q12H [facility] Stop: 11/23/18 21:59 Last Admin: 10/24/18 21:53 Dose: 40 mg Miscellaneous Information (Medication Intervention) 0 each MC .RN TO CHECK WITH PT [facility] Stop: 11/21/18 10:29 Naproxen (Naprosyn 500 Mg) 500 mg PO BID PRN PRN PRN Reason: PAIN Stop: 11/21/18 09:52 Pantoprazole Sodium (Protonix 40mg Tablet) 40 mg PO BID [facility] Stop: 11/21/18 09:59 Last Admin: 10/24/18 21:53 Dose: 40 mg Primidone (Mysoline 50mg) 50 mg PO TID [facility] Stop: 11/21/18 09:59 Last Admin: 10/24/18 21:52 Dose: 50 mg Fluticasone/Salmeterol (Advair Hfa 115/21 Common Canister*) 2 puff IH BIDRT [facility] Stop: 11/21/18 06:59 Last Admin: 10/25/18 07:37 Dose: 2 puff Senna (Senokot 8.6 Mg) 8.6 mg PO UD PRN PRN Reason: CONSTIPATION Stop: 11/21/18 09:52 Sertraline HCl (Zoloft 50 Mg Tablet) 100 mg PO HS [facility] Stop: 11/21/18 21:59 Last Admin: 10/24/18 21:53 Dose: 100 mg Tamsulosin HCl (Flomax 0.4 Mg) 0.4 mg PO HS [facility] Stop: 11/21/18 21:59 Last Admin: 10/24/18 21:52 Dose: 0.4 mg Tiotropium [place] (Spiriva 18 Mcg/Cap Inhaler) 1 ea IH DAILY [facility] Stop: 11/21/18 09:59 Last Admin: 10/25/18 07:39 Dose: 1 ea Intake & Output 10/24/18 10/25/18 11:59 11:59 Intake Total 1919 2018 Output Total 7454 8475 Balance -1280 -636 Weight 84.9 kg Orders 10/24/18 22:00 Methylprednisolone Sod Suc 40M [solu-MEDROL 40 MG] 40 mg IV Q12H Code(s): J18.9 - PNEUMONIA, UNSPECIFIED ORGANISM (2) History of aspiration pneumonia Current Visit: Yes Status: Chronic Code(s): Z87.01 - PERSONAL HISTORY OF PNEUMONIA (RECURRENT) (3) Acute exacerbation of extrinsic asthma Current Visit: No Status: Acute Assessment & Plan: improving Code(s): J45.901 - UNSPECIFIED ASTHMA WITH (ACUTE) EXACERBATION (4) Right middle lobe pulmonary infiltrate Current Visit: No Status: Acute Code(s): R91.8 - OTHER NONSPECIFIC ABNORMAL FINDING OF LUNG FIELD (5) Diabetes mellitus Current Visit: No Status: Chronic Qualifiers: Diabetes mellitus type: type 2 Diabetes mellitus half-way insulin use: without half-way use Diabetes mellitus complication detail: with unspecified neuropathy Code(s): E11.9 - TYPE 2 DIABETES MELLITUS WITHOUT COMPLICATIONS
[2018-10-25] MEDS: Cymbalta 30 MG Capsule PO SCH ×2 (08:28→22:12)
[2018-10-25] MEDS: Protonix 40MG Tablet PO SCH ×2 (08:29→22:13)
[2018-10-25] MEDS: MYSOLINE 50MG PO SCH ×3 (08:29→22:13)
[2018-10-25] MEDS: ECOTRIN 81 MG PO SCH (08:29)
[2018-10-25] MEDS: FEOSOL 325 MG PO SCH ×2 (08:29→22:12)
[2018-10-25] MEDS: NEURONTIN 300 MG PO SCH ×2 (08:29→22:13)
[2018-10-25] MEDS: NovoLOG Insulin SQ PRN ×4 (08:30→22:13)
[2018-10-25] MEDS: solu-MEDROL 40 MG IV SCH ×2 (10:37→22:13)
[2018-10-25] MEDS: ROCEPHIN 1 Gm-D5w 50 ml Bag** 1 G/50 ML IVPB IV SCH (21:45)
[2018-10-25] MEDS: Flomax 0.4 MG PO SCH (22:13)
[2018-10-25] MEDS: ZOLOFT 50 MG TABLET PO SCH (22:13)
[2018-10-25] MEDS: Zithromax 500 MG/ 250 ML NaCl Premix 500 MG/250 ML IVPB IV SCH (22:21)
[2018-10-26] MEDS: Sodium Chloride 0.9% 1000 ML 1,000 ML IV SCH (01:37)
[2018-10-26] MEDS: PROVENTIL 2.5 MG/3 ML NEB IH SCH ×6 (03:39→23:29)
[2018-10-26] MEDS: Advair Hfa 115/21 Common canister IH SCH ×2 (06:58→19:05)
[2018-10-26] MEDS: Spiriva 18 Mcg/Cap Inhaler IH SCH (07:01)
[2018-10-26] MEDS: Protonix 40MG Tablet PO SCH ×2 (08:05→21:20)
[2018-10-26] MEDS: NEURONTIN 300 MG PO SCH ×2 (08:05→21:19)
[2018-10-26] MEDS: Cymbalta 30 MG Capsule PO SCH ×2 (08:05→21:21)
[2018-10-26] MEDS: ECOTRIN 81 MG PO SCH (08:05)
[2018-10-26] MEDS: FEOSOL 325 MG PO SCH ×2 (08:05→21:26)
[2018-10-26] MEDS: NovoLOG Insulin SQ PRN ×3 (08:06→21:29)
[2018-10-26] MEDS: MYSOLINE 50MG PO SCH ×3 (08:06→21:27)
--- NOTE | 2018-10-26 08:32 | PCM.NOTE ---
Date and Time: 10/26/18826 Subjective Assessment: Patient reports that he doesn't cough much but still feels like he has congestion in his chest. He does not wear oxygen at home. He reports some constipation. No nausea or vomiting. - Review of Systems Constitutional: No Symptoms Eyes: No Symptoms Ears, Nose, & Throat: No Symptoms Respiratory: Cough, Short Of Breath, Wheezing Cardiac: No Symptoms Abdominal/Gastrointestinal: Constipation, No Nausea, No Vomiting, No Diarrhea Objective Exam General Appearance: no apparent distress, alert, other (eating breakfast) Neurologic Exam: alert, cooperative, normal mood/affect Skin Exam: normal color, warm, dry, No rash Respiratory Exam: other (scattered wheezes throughout, equal breath sounds, no crackles) Cardiovascular Exam: regular rate/rhythm, normal heart sounds, No murmur, No friction rub, No gallop Gastrointestinal/Abdomen Exam: soft, normal bowel sounds, No tenderness, No distention, No mass Extremity Exam: other (trace edema, no c/c) OBJECTIVE DATA Vital Signs: Vital Signs - 24 hr Temp Pulse Resp BP Pulse Ox 10/26/18 07:34 97.8 F 83 18 131/61 91 L 10/26/18 07:03 82 18 94 L 10/26/18 04:00 98.3 F 78 22 143/81 93 L 10/26/18 03:39 78 22 93 L 10/26/18 00:00 98.3 F 77 24 161/76 94 L 10/25/18 23:59 77 24 94 L 10/25/18 20:42 98.6 F 73 20 144/69 98 10/25/18 19:26 73 20 98 10/25/18 18:56 20 10/25/18 16:59 98.4 F 69 20 147/65 95 10/25/18 16:01 72 18 96 10/25/18 15:00 20 10/25/18 13:00 97.5 F 89 20 127/60 95 10/25/18 12:26 88 18 98 Oxygen-Last 24 hours O2 Percentage 4 Liters = 36% O2 Percentage 4 Liters = 36% O2 Percentage 3 Liters = 32% O2 Percentage 3 Liters = 32% Oxygen Flowrate (L/min)-RT 4 Oxygen Flowrate (L/min)-RT 4 Pain Assessment - Last Documented Pain Intensity 0 Pain Scale Used 0-10 Pain Scale,FLACC Intake and Output: Intake & Output 10/24/18 10/25/18 10/26/18 10/27/18 06:59 06:59 06:59 06:59 Intake Total 1920 2259 2870 Output Total 3171 0858 2980 Balance -1255 -1096 -110 Weight 84.9 kg Lab Results: Accuchecks Date 10/25/18 Date 10/25/18 Time 16:30 Time 11:30 Accucheck Value: 209 Accucheck Value: 255 Accucheck Value: 302 Radiology Exams: Radiology Procedures Category Date Time Status CHEST 2 VIEWS (PA AND LAT) Routine Exams 10/26/18 Ordered Assessment/Plan (1) Pneumonia Current Visit: Yes Status: Acute Qualifiers: Pneumonia type: aspiration pneumonia Laterality: left Lung location: lower lobe of lung Assessment & Plan: Will check Chest X-ray and lab work today and may change antibiotics. Continue oxygen as needed. May need to go to rehab bed for continued antibiotic and supportive treatment. Code(s): J18.9 - PNEUMONIA, UNSPECIFIED ORGANISM (2) History of aspiration pneumonia Current Visit: Yes Status: Chronic Assessment & Plan: He is on honey thickened liquid. Code(s): Z87.01 - PERSONAL HISTORY OF PNEUMONIA (RECURRENT) (3) Hypoxia Current Visit: No Status: Acute Assessment & Plan: Patient does not wear oxygen at home and he is on 3-4 Liters here right now. Code(s): R09.02 - HYPOXEMIA (4) Diabetes mellitus Current Visit: No Status: Chronic Qualifiers: Diabetes mellitus type: type 2 Diabetes mellitus fpc insulin use: without terminal gauger use Diabetes mellitus complication detail: with unspecified neuropathy Code(s): E11.9 - TYPE 2 DIABETES MELLITUS WITHOUT COMPLICATIONS (5) Seizure disorder Current Visit: No Status: Chronic Assessment & Plan: Continue home medication. Code(s): G40.909 - EPILEPSY, UNSP, NOT INTRACTABLE, WITHOUT STATUS EPILEPTICUS (6) Constipation Current Visit: Yes Status: Acute Assessment & Plan: Start colace, senna as needed. Code(s): K59.00 - CONSTIPATION, UNSPECIFIED (7) COPD (chronic obstructive pulmonary disease) Current Visit: Yes Status: Acute Assessment & Plan: He sees Dr. Harris as an outpatient. Will ask Dr. Steven to see him as he continues to have high oxygen requirement.
[2018-10-26 09:15] LABS: Hematocrit 39.5 % (42-50); Hemoglobin 12.8 gm/dl (12.5-18.0); Mean Cell Volume 93.4 fl (78-100); Mean Corpuscular Hemoglobin 30.3 pg (26-32); Mean Corpuscular Hgb Concent. 32.4 g/dl (32-36); Mean Platelet Volume 9.6 fl (6-9.5); Platelet Count 180 K/mm3 (150-450); Red Blood Count 4.23 M/mm3 (4.1-5.6); Red Cell Distribution Width 13.5 % (11.5-14.0); White Blood Count 13.3 K/mm3 (4.0-10.5)
--- NOTE | 2018-10-26 09:31 | XRAY ---
Indication: Pneumonia. Comparison: October 21, 2018. PA/lateral chest demonstrates interval improvement of the previous left base infiltrate/atelectasis/effusion with mild residual. Remaining heart and lungs unremarkable.
[2018-10-26 09:49] LABS: ANION GAP 13.2 MEQ/L (5-15); BLOOD UREA NITROGEN 17 mg/dL (9-20); CHLORIDE 96 mmol/L (98-107); Calcium 10.3 mg/dL (8.4-10.2); Carbon Dioxide 34 mmol/L (22-30); Creatinine 1 0.72 mg/dL (0.66-1.25); Glucose 173 mg/dL (74-106); Potassium 4.1 mmol/L (3.5-5.1); SODIUM 139 mmol/L (137-145)
[2018-10-26] MEDS: solu-MEDROL 40 MG IV SCH ×2 (10:28→23:05)
[2018-10-26] MEDS: SENOKOT 8.6 MG PO PRN (10:28)
[2018-10-26] MEDS: Colace 100 MG PO SCH ×2 (10:29→21:19)
[2018-10-26 11:03] LABS: ATYPICAL LYMPHS 2 %; Lymphocytes 59 % (24-44); Monocyte 3 % (0.0-12.0); Neutrophils 36 % (36.-66.); Platelet Estimate NORMAL (NORMAL); Total Cells Counted 100
[2018-10-26 17:50] LABS: INFLUENZA A NEGATIVE (NEGATIVE); INFLUENZA B NEGATIVE (NEGATIVE); RESPIRATORY SYNCTIAL VIRUS NEGATIVE (Negative)
[2018-10-26] MEDS: ROCEPHIN 1 Gm-D5w 50 ml Bag** 1 G/50 ML IVPB IV SCH (21:14)
[2018-10-26] MEDS: ZOLOFT 50 MG TABLET PO SCH (21:20)
[2018-10-26] MEDS: Flomax 0.4 MG PO SCH (21:27)
[2018-10-26] MEDS: Zithromax 500 MG/ 250 ML NaCl Premix 500 MG/250 ML IVPB IV SCH (23:05)
[2018-10-27] MEDS: PROVENTIL 2.5 MG/3 ML NEB IH SCH ×6 (03:09→23:05)
[2018-10-27] MEDS: Advair Hfa 115/21 Common canister IH SCH ×2 (07:26→18:46)
[2018-10-27] MEDS: Spiriva 18 Mcg/Cap Inhaler IH SCH (07:26)
--- NOTE | 2018-10-27 09:10 | PCM.NOTE ---
Date and Time: 10/27/18909 Subjective Assessment: Patient reports some pain in his mouth when trying to eat his cereal. He continues to have some cough. He reports he has not been up walking much in his room. His sister came in a little later and I updated her on how he was doing. His X-ray was better and Dr. Harris has been consulted to see him. Patient reports he had two small stools yesterday. - Review of Systems Constitutional: No Symptoms Eyes: No Symptoms Ears, Nose, & Throat: Other (mouth pain) Respiratory: Cough, Short Of Breath Cardiac: No Symptoms Abdominal/Gastrointestinal: Constipation Objective Exam General Appearance: no apparent distress, other (on oxygen 4L by nasal cannula) Neurologic Exam: alert, cooperative Skin Exam: normal color, warm, dry Ears, Nose, Throat Exam: other (white plaques on inside of mouth and tongue) Respiratory Exam: other (scattered expiratory wheezes throughout), No respiratory distress, No accessory muscle use, No crackles/rales, No rhonchi Cardiovascular Exam: regular rate/rhythm, normal heart sounds, No murmur, No friction rub, No gallop Gastrointestinal/Abdomen Exam: soft, normal bowel sounds, No tenderness, No distention, No mass Extremity Exam: other (no c/c/e) OBJECTIVE DATA Vital Signs: Vital Signs - 24 hr Temp Pulse Resp BP Pulse Ox 10/27/18 07:41 98.8 F 76 18 131/60 93 L 10/27/18 07:00 18 10/27/18 04:00 98.4 F 82 19 121/61 92 L 10/27/18 03:09 82 19 92 L 10/27/18 03:00 19 10/27/18 00:00 98.6 F 78 16 134/68 91 L 10/26/18 23:28 74 18 92 L 10/26/18 23:00 18 10/26/18 20:00 84 20 128/59 92 L 10/26/18 19:04 83 20 97 10/26/18 19:00 20 10/26/18 16:00 98.3 F 92 H 18 149/72 92 L 10/26/18 15:46 89 18 92 L 10/26/18 15:00 18 10/26/18 12:00 98.1 F 87 18 139/60 92 L 10/26/18 11:05 93 H 18 96 10/26/18 11:00 18 Oxygen-Last 24 hours O2 Percentage 2 Liters = 28% O2 Percentage 2 Liters = 28% O2 Percentage 2 Liters = 28% O2 Percentage 2 Liters = 28% O2 Percentage 2 Liters = 28% O2 Percentage 2 Liters = 28% Pain Assessment - Last Documented Pain Intensity 0 [facility] Scale [facility] Intake and Output: Intake & Output 10/25/18 10/26/18 10/27/18 10/28/18 06:59 06:59 06:59 06:59 Intake Total 2259 2870 2418 480 Output Total 3355 2980 3700 850 Balance -1096 -110 -1282 -370 Lab Results: Accuchecks Date 10/27/18 Date 10/26/18 Date 10/26/18 Time 07:47 Time 16:30 Time 11:30 Accucheck Value: 183 Accucheck Value: 282 Accucheck Value: 431 Accucheck Value: 295 Lab Results-Last 24 Hours 10/26/18 10/26/18 10/26/18 Range/Units 08:46 08:46 17:15 WBC 13.3 H (4.0-10.5) K/mm3 RBC 4.23 (4.1-5.6) M/mm3 Hgb 12.8 (12.5-18.0) gm/dl Hct 39.5 L (42-50) % MCV 93.4 (78-100) fl MCH 30.3 (26-32) pg MCHC 32.4 (32-36) g/dl RDW 13.5 (11.5-14.0) % Plt Count 180 (150-450) K/mm3 MPV 9.6 H (6-9.5) fl Segmented Neutrophils 36 (36.-66.) % Lymphocytes (Manual) 59 H (24-44) % Monocytes (Manual) 3 (0.0-12.0) % Atypical Lymphocytes 2 % Platelet Estimate NORMAL (NORMAL) RBC Morphology NORMAL Sodium 139 (137-145) mmol/L Potassium 4.1 (3.5-5.1) mmol/L Chloride 96 L (98-107) mmol/L Carbon Dioxide 34 H (22-30) mmol/L Anion Gap 13.2 (5-15) MEQ/L BUN 17 (9-20) mg/dL Creatinine 0.72 (0.66-1.25) mg/dL Estimated GFR > 60.0 ML/MIN Glucose 173 H (74-106) mg/dL Calcium 10.3 H (8.4-10.2) mg/dL Influenza Type A Ag NEGATIVE (NEGATIVE) Influenza Type B Ag NEGATIVE (NEGATIVE) RSV (PCR) NEGATIVE (Negative) Radiology Exams: Radiology Procedures Category Date Time Status CHEST 2 VIEWS (PA AND LAT) Routine Exams 10/26/18 09:18 Completed Assessment/Plan (1) Pneumonia Current Visit: Yes Status: Acute Qualifiers: Laterality: left Lung location: lower lobe of lung Assessment & Plan: Continue ceftriaxone and azithromycin. Dr. Rickey Harris consulted. Continue oxygen as needed and try to wean down. Continue albuterol treatments as needed. Code(s): J18.9 - PNEUMONIA, UNSPECIFIED ORGANISM (2) History of aspiration pneumonia Current Visit: Yes Status: Chronic Assessment & Plan: Continue honey thickened diet Code(s): Z87.01 - PERSONAL HISTORY OF PNEUMONIA (RECURRENT) (3) Hypoxia Current Visit: No Status: Acute Assessment & Plan: Continue to try to wean oxygen; he is not on oxygen at home. Code(s): R09.02 - HYPOXEMIA (4) Diabetes mellitus Current Visit: No Status: Chronic Qualifiers: Diabetes mellitus type: type 2 Diabetes mellitus manager long term care insulin use: without manager long term care use Diabetes mellitus complication detail: with unspecified neuropathy Assessment & Plan: Continue current treatment. Code(s): E11.9 - TYPE 2 DIABETES MELLITUS WITHOUT COMPLICATIONS (5) Seizure disorder Current Visit: No Status: Chronic Assessment & Plan: Continue home medication. No seizure activity noted. Code(s): G40.909 - EPILEPSY, UNSP, NOT INTRACTABLE, WITHOUT STATUS EPILEPTICUS (6) Constipation Current Visit: Yes Status: Acute Code(s): K59.00 - CONSTIPATION, UNSPECIFIED (7) COPD (chronic obstructive pulmonary disease) Current Visit: Yes Status: Acute Assessment & Plan: Continue IV steroids. (8) Thrush, oral Current Visit: Yes Status: Acute Assessment & Plan: Start nystatin. Code(s): B37.0 - CANDIDAL STOMATITIS
[2018-10-27] MEDS: MYSOLINE 50MG PO SCH ×3 (09:35→21:29)
[2018-10-27] MEDS: Cymbalta 30 MG Capsule PO SCH ×2 (09:35→21:28)
[2018-10-27] MEDS: ENOXAPARIN SODIUM SQ SCH (09:36)
[2018-10-27] MEDS: NEURONTIN 300 MG PO SCH ×2 (09:36→21:29)
[2018-10-27] MEDS: Protonix 40MG Tablet PO SCH ×2 (09:36→21:29)
[2018-10-27] MEDS: FEOSOL 325 MG PO SCH ×2 (09:36→21:28)
[2018-10-27] MEDS: Colace 100 MG PO SCH ×2 (09:36→21:28)
[2018-10-27] MEDS: Nystatin SUSPENSION 60 ML PO SCH ×4 (09:36→21:29)
[2018-10-27] MEDS: ECOTRIN 81 MG PO SCH (09:36)
[2018-10-27] MEDS: solu-MEDROL 40 MG IV SCH ×2 (10:40→21:29)
[2018-10-27] MEDS: NovoLOG Insulin SQ PRN ×2 (16:55→21:30)
[2018-10-27] MEDS: Lantus Insulin SQ SCH (21:28)
[2018-10-27] MEDS: Flomax 0.4 MG PO SCH (21:28)
[2018-10-27] MEDS: ROCEPHIN 1 Gm-D5w 50 ml Bag** 1 G/50 ML IVPB IV SCH (21:29)
[2018-10-27] MEDS: ZOLOFT 50 MG TABLET PO SCH (21:29)
[2018-10-28] MEDS: PROVENTIL 2.5 MG/3 ML NEB IH SCH ×6 (02:24→23:35)
[2018-10-28] MEDS: Advair Hfa 115/21 Common canister IH SCH ×2 (06:37→18:47)
[2018-10-28] MEDS: Spiriva 18 Mcg/Cap Inhaler IH SCH (06:37)
[2018-10-28] MEDS: NovoLOG Insulin SQ PRN ×4 (08:08→22:16)
[2018-10-28] MEDS: Cymbalta 30 MG Capsule PO SCH ×2 (09:23→22:13)
[2018-10-28] MEDS: Colace 100 MG PO SCH ×2 (09:23→22:13)
[2018-10-28] MEDS: FEOSOL 325 MG PO SCH ×2 (09:23→22:14)
[2018-10-28] MEDS: NEURONTIN 300 MG PO SCH ×2 (09:23→22:14)
[2018-10-28] MEDS: Nystatin SUSPENSION 60 ML PO SCH ×4 (09:24→22:15)
[2018-10-28] MEDS: ENOXAPARIN SODIUM SQ SCH (09:24)
[2018-10-28] MEDS: MYSOLINE 50MG PO SCH ×3 (09:24→22:14)
[2018-10-28] MEDS: Protonix 40MG Tablet PO SCH ×2 (09:24→22:15)
[2018-10-28] MEDS: solu-MEDROL 40 MG IV SCH ×3 (09:24→23:38)
[2018-10-28] MEDS: ECOTRIN 81 MG PO SCH (09:24)
[2018-10-28] MEDS: THERAGRAN MULTIVITAMIN PO SCH (10:37)
[2018-10-28] MEDS: Glucophage XR 500 MG PO SCH ×2 (10:37→22:14)
[2018-10-28] MEDS: VITAMIN D PO SCH (10:37)
--- NOTE | 2018-10-28 16:45 | PCM.NOTE ---
Date and Time: 10/28/18 1645 Subjective Assessment: He reports he continues to have some cough. He also continues to have some mouth pain which makes eating some things difficult. This afternoon, his VEHICLE SALES PROFESSIONAL reported that he walked in the [place] x 2. Objective Exam General Appearance: no apparent distress Neurologic Exam: alert, cooperative, normal mood/affect Skin Exam: normal color, warm, dry Respiratory Exam: other (scattered wheezes throughout, equal breath sounds, no crackles), No respiratory distress, No accessory muscle use Cardiovascular Exam: regular rate/rhythm, normal heart sounds, No friction rub, No gallop, No tachycardia Gastrointestinal/Abdomen Exam: soft, normal bowel sounds, No tenderness, No distention, No mass Extremity Exam: other (no c/c/e) OBJECTIVE DATA Vital Signs: Vital Signs - 24 hr Temp Pulse Resp BP Pulse Ox 10/28/18 14:29 84 18 95 10/28/18 12:00 98.4 F 94 H 16 142/57 94 L 10/28/18 11:00 18 10/28/18 10:55 85 18 95 10/28/18 07:20 98.3 F 78 16 124/60 91 L 10/28/18 06:43 78 16 91 L 10/28/18 03:56 98.4 F 85 89 H 130/64 10/28/18 03:00 18 10/28/18 02:28 84 18 90 L 10/27/18 23:48 98.5 F 89 18 172/77 90 L 10/27/18 23:21 83 18 91 L 10/27/18 23:00 18 10/27/18 20:00 98.1 F 87 18 120/85 100 10/27/18 19:00 20 10/27/18 18:49 88 20 96 Oxygen-Last 24 hours O2 Percentage 2 Liters = 28% O2 Percentage 2 Liters = 28% O2 Percentage 2 Liters = 28% O2 Percentage 2 Liters = 28% O2 Percentage 2 Liters = 28% Pain Assessment - Last Documented Pain Intensity 0 Pain Scale Used 0-10 Pain Scale Intake and Output: Intake & Output 10/26/18 10/27/18 10/28/18 10/29/18 06:59 06:59 06:59 06:59 Intake Total 2870 2418 1393 600 Output Total 2980 3700 2300 Balance -110 -1282 -907 600 Lab Results: Accuchecks Date 10/28/18 Date 10/28/18 Time 11:30 Time 07:30 Accucheck Value: 240 Accucheck Value: 160 Accucheck Value: 183 Multi-Disciplinary Progress Notes: Multi-Disciplinary Progress Notes 10/28/18 14:57 Respiratory Note by Kimberly Maldonado PT'S O2 SAT ON ROOM AIR WHILE AT REST WAS 92%. PT'S O2 WHILE WALKING ON ROOM AIR WAS 87%. PT WAS THEN PLACED BACK ON 2LPM NASAL CANNULA. O2 SAT INCREASED TO 93% WHILE WALKING WITH 2LPM OXYGEN. NURSE AWARE. Initialized on 10/28/18 14:57 - END OF NOTE 10/28/18 11:00 (created 10/28/18 14:14) Case Management Note by Angela Fonseca NO NEEDS IDENTIFIED AT THIS TIME FOR DISCHARGE. AWAIT DR. Felicia SINGER TO CONSULT. Initialized on 10/28/18 14:14 - END OF NOTE Assessment/Plan (1) Pneumonia Current Visit: Yes Status: Acute Qualifiers: Laterality: left Lung location: lower lobe of lung Assessment & Plan: Continue with ceftriaxone. He finished 5 days of azithromycin. Informatics Physician Liaison consulted. Code(s): J18.9 - PNEUMONIA, UNSPECIFIED ORGANISM (2) History of aspiration pneumonia Current Visit: Yes Status: Chronic Code(s): Z87.01 - PERSONAL HISTORY OF PNEUMONIA (RECURRENT) (3) Hypoxia Current Visit: No Status: Acute Assessment & Plan: He has weaned down from 4 L NC to 2 L NC. Continue to try to wean oxygen. Code(s): R09.02 - HYPOXEMIA (4) Diabetes mellitus Current Visit: No Status: Chronic Qualifiers: Diabetes mellitus type: type 2 Diabetes mellitus senior care insulin use: without senior care use Diabetes mellitus complication detail: with unspecified neuropathy Assessment & Plan: Lantus started last night. Metformin restarted and bydureon reordered also. Code(s): E11.9 - TYPE 2 DIABETES MELLITUS WITHOUT COMPLICATIONS (5) Seizure disorder Current Visit: No Status: Chronic Assessment & Plan: Well controlled on home medication. Code(s): G40.909 - EPILEPSY, UNSP, NOT INTRACTABLE, WITHOUT STATUS EPILEPTICUS (6) Constipation Current Visit: Yes Status: Acute Assessment & Plan: Continue with stool softners. Code(s): K59.00 - CONSTIPATION, UNSPECIFIED (7) COPD (chronic obstructive pulmonary disease) Current Visit: Yes Status: Acute Assessment & Plan: Continue albuterol treatments as needed. (8) Thrush, oral Current Visit: Yes Status: Acute Assessment & Plan: Continue nystatin. Code(s): B37.0 - CANDIDAL STOMATITIS
[2018-10-28] MEDS ORDERED: Levofloxacin 500MG/100ML D5W 500 MG/100 ML BAG IV SCH (22:00)
[2018-10-28] MEDS: Flomax 0.4 MG PO SCH (22:14)
[2018-10-28] MEDS: Lantus Insulin SQ SCH (22:14)
[2018-10-28] MEDS: Zosyn 3.375GM/100 Ml D5W 3.375 GM/100 ML IVPB IV SCH ×2 (22:15→23:38)
[2018-10-28] MEDS: ZOLOFT 50 MG TABLET PO SCH (22:15)
[2018-10-29] MEDS: PROVENTIL 2.5 MG/3 ML NEB IH SCH ×6 (02:48→23:16)
[2018-10-29 05:46] LABS: Hematocrit 38.7 % (42-50); Hemoglobin 12.6 gm/dl (12.5-18.0); Mean Cell Volume 92.1 fl (78-100); Mean Corpuscular Hgb Concent. 32.6 g/dl (32-36); Mean Platelet Volume 9.5 fl (6-9.5); Platelet Count 208 K/mm3 (150-450); Red Cell Distribution Width 13.2 % (11.5-14.0); White Blood Count 14.4 K/mm3 (4.0-10.5)
[2018-10-29 06:06] LABS: ALBUMIN 3.7 g/dL (3.5-5.0); ALKALINE PHOSPHATASE 40 U/L (38-126); ANION GAP 16.3 MEQ/L (5-15); BLOOD UREA NITROGEN 19 mg/dL (9-20); CHLORIDE 92 mmol/L (98-107); Carbon Dioxide 31 mmol/L (22-30); Creatinine 1 0.71 mg/dL (0.66-1.25); Glucose 233 mg/dL (74-106); Potassium 4.8 mmol/L (3.5-5.1); SGOT/AST 25 U/L (17-59); SGPT/ALT 23 U/L (0-50); SODIUM 134 mmol/L (137-145)
[2018-10-29] MEDS: Zosyn 3.375GM/100 Ml D5W 3.375 GM/100 ML IVPB IV SCH ×3 (06:20→21:13)
[2018-10-29] MEDS: Advair Hfa 115/21 Common canister IH SCH ×2 (06:37→18:55)
[2018-10-29] MEDS: Spiriva 18 Mcg/Cap Inhaler IH SCH (06:37)
[2018-10-29] MEDS: NovoLOG Insulin SQ PRN ×3 (07:40→17:32)
--- NOTE | 2018-10-29 08:36 | PCM.NOTE ---
Date and Time: 10/29/18829 Subjective Assessment: Patient reports that Dr. Rickey Harris saw him last night. He continues to have a cough. He he was able to walk down the [place] a couple of times yesterday. He still has some constipation. He continues to have some mouth pain. - Review of Systems Constitutional: No Symptoms Eyes: No Symptoms Ears, Nose, & Throat: Mouth Pain Respiratory: Short Of Breath, Wheezing Cardiac: No Symptoms Abdominal/Gastrointestinal: Constipation Genitourinary Symptoms: No Symptoms Musculoskeletal: No Symptoms Skin: No Symptoms Objective Exam General Appearance: no apparent distress, alert Neurologic Exam: alert, cooperative, normal mood/affect Skin Exam: normal color, warm, dry, No rash Respiratory Exam: normal breath sounds, wheezing, No respiratory distress, No accessory muscle use, No crackles/rales, No rhonchi Cardiovascular Exam: regular rate/rhythm, normal heart sounds, No murmur, No friction rub, No gallop Gastrointestinal/Abdomen Exam: soft, normal bowel sounds, No tenderness, No distention, No mass, No guarding Extremity Exam: other (no c/c/e) OBJECTIVE DATA Vital Signs: Vital Signs - 24 hr Temp Pulse Resp BP Pulse Ox 10/29/18 06:42 86 18 95 10/29/18 04:00 97.5 F 83 20 136/74 91 L 10/29/18 02:51 83 18 91 L 10/28/18 23:50 97.9 F 82 18 141/74 94 L 10/28/18 23:38 82 18 94 L 10/28/18 19:44 97.9 F 85 18 133/63 97 10/28/18 18:51 96 10/28/18 18:50 97 H 18 96 10/28/18 16:00 98.3 F 89 18 116/68 95 10/28/18 15:00 18 10/28/18 14:29 84 18 95 10/28/18 12:00 98.4 F 94 H 16 142/57 94 L 10/28/18 11:00 18 10/28/18 10:55 85 18 95 Oxygen-Last 24 hours O2 Percentage 2 Liters = 28% O2 Percentage 2 Liters = 28% O2 Percentage 2 Liters = 28% O2 Percentage 2 Liters = 28% Pain Assessment - Last Documented Pain Intensity 0 Pain Scale Used 0-10 Pain Scale Intake and Output: Intake & Output 10/27/18 10/28/18 10/29/18 10/30/18 06:59 06:59 06:59 06:59 Intake Total 2418 1393 1340 Output Total 3703 7828 2404 Balance -7434 -245 -6453 Lab Results: Accuchecks Date 10/28/18 Date 10/28/18 Time 16:30 Time 11:30 Accucheck Value: 203 Accucheck Value: 245 Accucheck Value: 240 Lab Results-Last 24 Hours 10/29/18 10/29/18 Range/Units 05:25 05:35 WBC 14.4 H (4.0-10.5) K/mm3 RBC 4.20 (4.1-5.6) M/mm3 Hgb 12.6 (12.5-18.0) gm/dl Hct 38.7 L (42-50) % MCV 92.1 (78-100) fl MCH 30.0 (26-32) pg MCHC 32.6 (32-36) g/dl RDW 13.2 (11.5-14.0) % Plt Count 208 (150-450) K/mm3 MPV 9.5 (6-9.5) fl Sodium 134 L (137-145) mmol/L Potassium 4.8 (3.5-5.1) mmol/L Chloride 92 L (98-107) mmol/L Carbon Dioxide 31 H (22-30) mmol/L Anion Gap 16.3 H (5-15) MEQ/L BUN 19 (9-20) mg/dL Creatinine 0.71 (0.66-1.25) mg/dL Estimated GFR > 60.0 ML/MIN Glucose 233 H (74-106) mg/dL Calcium 10.0 (8.4-10.2) mg/dL Total Bilirubin 0.40 (0.2-1.3) mg/dL AST 25 (17-59) U/L ALT 23 (0-50) U/L Alkaline Phosphatase 40 (38-126) U/L Serum Total Protein 7.0 (6.3-8.2) g/dL Albumin 3.7 (3.5-5.0) g/dL Radiology Exams: Radiology Procedures Category Date Time Status CHEST 2 VIEWS (PA AND LAT) Routine Exams 10/29/18 08:00 Ordered Multi-Disciplinary Progress Notes: Multi-Disciplinary Progress Notes 10/28/18 14:57 Respiratory Note by Kimberly Maldonado PT'S O2 SAT ON ROOM AIR WHILE AT REST WAS 92%. PT'S O2 WHILE WALKING ON ROOM AIR WAS 87%. PT WAS THEN PLACED BACK ON 2LPM NASAL CANNULA. O2 SAT INCREASED TO 93% WHILE WALKING WITH 2LPM OXYGEN. NURSE AWARE. Initialized on 10/28/18 14:57 - END OF NOTE 10/28/18 11:00 (created 10/28/18 14:14) Case Management Note by Angela Fonseca NO NEEDS IDENTIFIED AT THIS TIME FOR DISCHARGE. AWAIT DR. Felicia HARRIS TO CONSULT. Initialized on 10/28/18 14:14 - END OF NOTE Assessment/Plan (1) Pneumonia Current Visit: Yes Status: Acute Qualifiers: Laterality: left Lung location: lower lobe of lung Assessment & Plan: He finished a course of 5 days of azithromycin and [address] Harris started him on levofloxacin last night. He continues to require 2 L of oxygen. Repeat chest X-ray done today. Dr. Harris's consult was dictated but not available yet. Code(s): J18.9 - PNEUMONIA, UNSPECIFIED ORGANISM (2) History of aspiration pneumonia Current Visit: Yes Status: Chronic Code(s): Z87.01 - PERSONAL HISTORY OF PNEUMONIA (RECURRENT) (3) Hypoxia Current Visit: No Status: Acute Code(s): R09.02 - HYPOXEMIA (4) Diabetes mellitus Current Visit: No Status: Chronic Qualifiers: Diabetes mellitus type: type 2 Diabetes mellitus custodial insulin use: without watermelon inspector use Diabetes mellitus complication detail: with unspecified neuropathy Assessment & Plan: Home medications were restarted and he is also on 10 units of lantus daily along with sliding scale. IV steroids are most likely contributing to the hyperglycemia. Code(s): E11.9 - TYPE 2 DIABETES MELLITUS WITHOUT COMPLICATIONS (5) Seizure disorder Current Visit: No Status: Chronic Assessment & Plan: No seizures noted; continue home medication. Code(s): G40.909 - EPILEPSY, UNSP, NOT INTRACTABLE, WITHOUT STATUS EPILEPTICUS (6) Constipation Current Visit: Yes Status: Acute Assessment & Plan: will start miralax and continue with docusate as well and senna as needed. Code(s): K59.00 - CONSTIPATION, UNSPECIFIED (7) COPD (chronic obstructive pulmonary disease) Current Visit: Yes Status: Acute Assessment & Plan: Continue oxygen, breathing treatments, IV steroids, IV antibiotics. (8) Thrush, oral Current Visit: Yes Status: Acute Assessment & Plan: Will give dose of oral diflucan today and continue nystatin. Code(s): B37.0 - CANDIDAL STOMATITIS
--- NOTE | 2018-10-29 08:47 | CONS ---
CONSULT DATE: 10/28/2018 REASON FOR CONSULT: Chronic obstructive pulmonary disease exacerbation, acute bronchitis. HISTORY: Blue Bell is a 63 year-old male with history of chronic obstructive pulmonary disease known to me, who has been hospitalized with complaints of high grade fever of 103F along with low oxygen saturation and cough productive of extremely thick expectoration. The patient continues to have thick yellow purulent expectoration despite being on Rocephin on admission. He also continues to have wheezing. He is currently being treated with bronchodilators along with steroids. He denies chest pain. At the time of my evaluation the patient is sitting comfortably in chair. His chest x-ray on admission had shown left lower lobe infiltrate with some clinical improvement. PAST MEDICAL HISTORY: Positive for chronic obstructive pulmonary disease, diabetes mellitus, bipolar, anxiety/depression, prostatic enlargement, gastroesophageal reflux disease. PAST SURGICAL HISTORY: No recent surgery. PERSONAL AND SOCIAL HISTORY: He lives with his sister who is also his caregiver. MEDICATIONS: Home and current medications are reviewed. ALLERGIES: ALLERGIES REVIEWED. PHYSICAL EXAMINATION: This is an elderly male who appears fairly comfortable at rest. Vital signs are noted. HEENT: Normocephalic. Oral exam shows small oropharynx. NECK: Supple. CVS: First and second heart sounds are normal, regular, rhythmic. RESPIRATORY: Shows diminished breath sounds, bilateral rhonchi are heard. ABDOMEN: Obese. EXTREMITIES: Trace edema noted. LABORATORY DATA AND TESTS: Influenza titers are negative. White count 13.3, hemoglobin 12.8, hematocrit 39, PLT 180,000. Sodium 139, potassium 4.1, chloride 96, bicarb 34, glucose 173, BUN 17, creatinine 0.72. Chest x-ray noted. Sputum culture pending. ASSESSMENT: This is a 63 year old male admitted with: 1) Chronic obstructive pulmonary disease with exacerbation. 2) Acute exacerbation of chronic bronchitis. 3) Hypoxemia. 4) Comorbidities listed above including diabetes. RECOMMENDATIONS: 1) The patient's sputum still remains purulent and is concerning for possible Pseudomonas in view of which I have recommended the patient's antibiotics be changed and discontinue Rocephin and start the patient on Zosyn 3.375 gm IV every 8 hours. 2) Add Levaquin 500 mg IV daily. 3) Check sputum culture. 4) Continue bronchodilator. 5) Will hold off on increasing steroids in view of history of diabetes. 6) Follow up labs and x-ray in the a.m. I will continue to follow. I discussed his plan of care with the patient's sister and nursing staff. Thank you for allowing me to participate in the care of Blue Bell.
--- NOTE | 2018-10-29 08:48 | XRAY ---
Indication: Follow-up pneumonia. Comparison: October 26, 2018. PA/lateral chest unchanged again with minimal left base infiltrate/atelectasis and tiny effusion. Remaining heart and lungs unremarkable.
[2018-10-29] MEDS: Nystatin SUSPENSION 60 ML PO SCH ×3 (10:31→15:43)
[2018-10-29] MEDS: Cymbalta 30 MG Capsule PO SCH ×2 (10:31→21:20)
[2018-10-29] MEDS: FEOSOL 325 MG PO SCH ×2 (10:31→21:21)
[2018-10-29] MEDS: Colace 100 MG PO SCH ×2 (10:32→21:18)
[2018-10-29] MEDS: NEURONTIN 300 MG PO SCH ×2 (10:32→21:21)
[2018-10-29] MEDS: ECOTRIN 81 MG PO SCH (10:32)
[2018-10-29] MEDS: Protonix 40MG Tablet PO SCH ×2 (10:32→21:19)
[2018-10-29] MEDS: MYSOLINE 50MG PO SCH ×3 (10:32→21:20)
[2018-10-29] MEDS: VITAMIN D PO SCH (10:32)
[2018-10-29] MEDS: Glucophage XR 500 MG PO SCH ×2 (10:32→21:19)
[2018-10-29] MEDS: THERAGRAN MULTIVITAMIN PO SCH (10:32)
[2018-10-29] MEDS: Miralax Powder 17GM PACKET PO SCH (10:33)
[2018-10-29] MEDS: ENOXAPARIN SODIUM SQ SCH (10:33)
[2018-10-29] MEDS: solu-MEDROL 40 MG IV SCH ×2 (10:53→22:24)
[2018-10-29] MEDS: Diflucan 100 MG PO SCH (13:55)
[2018-10-29] MEDS: MARY'S MOUTHWASH PO SCH ×2 (17:32→23:14)
[2018-10-29] MEDS ORDERED: Miscellaneous Medication Order MC ONE (18:00)
[2018-10-29] MEDS: Flomax 0.4 MG PO SCH (21:18)
[2018-10-29] MEDS: ZOLOFT 50 MG TABLET PO SCH (21:23)
[2018-10-29] MEDS ORDERED: Levofloxacin 500MG/100ML D5W 500 MG/100 ML BAG IV SCH (22:00)
[2018-10-29] MEDS: Lantus Insulin SQ SCH (23:09)
[2018-10-30] MEDS: PROVENTIL 2.5 MG/3 ML NEB IH SCH ×3 (03:14→10:31)
[2018-10-30] MEDS: MARY'S MOUTHWASH PO SCH ×2 (06:02→12:13)
[2018-10-30] MEDS: Zosyn 3.375GM/100 Ml D5W 3.375 GM/100 ML IVPB IV SCH (06:02)
[2018-10-30] MEDS: Advair Hfa 115/21 Common canister IH SCH (07:01)
[2018-10-30] MEDS: Spiriva 18 Mcg/Cap Inhaler IH SCH (07:01)
[2018-10-30] MEDS: NovoLOG Insulin SQ PRN ×2 (08:22→12:13)
--- NOTE | 2018-10-30 08:38 | PCM.DCORD ---
- Discharge Discharge Date: 10/30/18 Disposition: Swing Bed @ [facility] Condition: Good Prescriptions: No Action Sertraline HCl 100 mg PO HS Gabapentin 600 mg PO BID Metformin HCl 500 mg [Glucophage 500 MG] 500 mg PO BID Omeprazole 40 mg PO BID Fluticasone/Salmeterol [Advair 250-50 Diskus] 1 puff IH BID Tiotropium [place] Inhaler [Spiriva 18 Mcg/Cap Inhaler] 18 mcg IH DAILY Aspirin [Aspir 81] 81 mg PO DAILY Primidone 50 MG [Mysoline 50Mg] 50 mg PO TID Mirabegron [Myrbetriq] 50 mg PO HS Ferrous Sulfate 325 mg [Feosol 325 mg] 325 mg PO BID Tamsulosin HCl 0.4 mg [Flomax 0.4 MG] 0.4 mg PO HS Duloxetine HCl [Cymbalta] 60 mg PO BID Divalproex Sodium [Depakote] 1,000 mg PO BID Multivitamin [Multivitamins] 1 each PO DAILY Albuterol Sulfate [Proair Hfa] 2 puff IH Q4H PRN PRN PRN Reason: Shortness Of Breath/Wheezing Cholecalciferol (Vitamin D3) [Vitamin D3] 1,000 unit PO DAILY Naproxen [Naprosyn] 500 mg PO BID Hydrocodone/APAP 10/325 mg [[place] 10/325 MG Tablet] 1 tab PO Q4H PRN PRN PRN Reason: Pain Exenatide Microspheres [Bydureon Pen] 2 mg SQ WEEKLY Albuterol Sulfate 0.63 mg IH TID Sennosides [Senna Laxative] 8.6 mg PO UD PRN PRN Reason: Constipation Alprazolam 1 mg [Xanax 1 mg] 1 mg PO BID PRN PRN Reason: Anxiety Cefdinir 300 mg PO BID 7 Days #14 capsule Additional Instructions: FOLLOW UP WITH DR. SINGER 2 WKS AFTER DISCHARGE Follow up with: SUMMER SINGER [ACTIVE STAFF] - CUONG BROWN [Primary Care Provider] - 1 Week
[2018-10-30] MEDS: Miralax Powder 17GM PACKET PO SCH (10:42)
[2018-10-30] MEDS: Protonix 40MG Tablet PO SCH (10:43)
[2018-10-30] MEDS: SENOKOT 8.6 MG PO PRN (10:43)
[2018-10-30] MEDS: NEURONTIN 300 MG PO SCH (10:43)
[2018-10-30] MEDS: Diflucan 100 MG PO SCH (10:43)
[2018-10-30] MEDS: ECOTRIN 81 MG PO SCH (10:43)
[2018-10-30] MEDS: Cymbalta 30 MG Capsule PO SCH (10:43)
[2018-10-30] MEDS: FEOSOL 325 MG PO SCH (10:43)
[2018-10-30] MEDS: VITAMIN D PO SCH (10:43)
[2018-10-30] MEDS: Colace 100 MG PO SCH (10:44)
[2018-10-30] MEDS: MYSOLINE 50MG PO SCH (10:44)
[2018-10-30] MEDS: THERAGRAN MULTIVITAMIN PO SCH (10:44)
[2018-10-30] MEDS: Glucophage XR 500 MG PO SCH (10:44)
[2018-10-30] MEDS: solu-MEDROL 40 MG IV SCH (10:50)
[2018-10-30] MEDS: ENOXAPARIN SODIUM SQ SCH (10:50)
[2018-10-30 11:12] VITALS: BP 138/68; PULSE 80; O2SAT 97
--- NOTE | 2018-11-02 09:46 | DS ---
DISCHARGE DIAGNOSES: 1) PNEUMONIA LEFT LOWER LOBE OF THE LUNG. 2) HISTORY OF ASPIRATION PNEUMONIA. 3) HYPOXIA. 4) DIABETES MELLITUS TYPE 2 AND NEUROPATHY. 5) SEIZURE DISORDER. 6) CONSTIPATION. 7) CHRONIC OBSTRUCTIVE PULMONARY DISEASE. 8) ORAL THRUSH. DISCHARGE PHYSICAL EXAMINATION: VITALS: Temperature current 97.9F, heart rate 80, respiratory rate 20, blood pressure 138/68. Oxygen saturation 97% on 2 liters nasal cannula. GENERAL: The patient is pleasant talkative man sitting up in no acute distress. CVS: He has a regular rate and rhythm. No murmurs, gallops or rubs. CHEST: He has expiratory wheezes throughout without any crackles, equal breath sounds. No retractions. No tachypnea. ABDOMEN: Soft, nontender, nondistended. EXTREMITIES: No clubbing, cyanosis or edema. SKIN: Warm, dry and intact. HOSPITAL COURSE: 1) PNEUMONIA LEFT LOWER LOBE OF THE LUNG: He finished a five day course of azithromycin and eight days of ceftriaxone. He was changed to Zosyn two days before his discharge as well as Levaquin. He had chest x-ray that showed the left lower lobe pneumonia that was improving during his hospitalization. He is not on oxygen at home and had been on 4 liters and has been able to be weaned down to 2 liters. He was seen by a general freight agent, Dr. Tyler Harris, on 10/28/2018. 2) HISTORY OF ASPIRATION PNEUMONIA: He is on honey-thickened liquids. 3) HYPOXIA: They are working on weaning off of the oxygen. 4) DIABETES MELLITUS TYPE 2: He is on medication of Metformin and Bydureon were restarted. I also started him on Lantus daily. His blood sugars continued to be slightly elevated most likely due to IV steroids. 5) SEIZURE DISORDER: He has not had any seizures during his hospitalization and continued on his home medications. 6) CONSTIPATION: He was started on docusate and had Senna ordered as needed and MiraLAX was added. 7) CHRONIC OBSTRUCTIVE PULMONARY DISEASE: He was continued on breathing treatments, IV antibiotics and IV steroids as well as oxygen and Dr. Tyler Harris, Police Officer saw him. 8) ORAL THRUSH: He was started on Nystatin but continued to have problems. I did not start fluconazole because of the risk with QT prolongation but Dr. Harris did order fluconazole for him and Kylee's Magic Wash and stopped the Nystatin. DISCHARGE MEDICATIONS: Please see the discharge medication list. DISPOSITION: The patient was discharged to swing-bed in fair condition to continue the IV antibiotics and therapy. Please see the discharge order for details.
== END 2018-10-30 12:30 | disposition swing bed (61) | DRG 194 ==
LOC: ED 19:36 → MED SURG 21:58
PROVIDERS: ADMIT Internal Medicine; ATTEND Internal Medicine
DX: J18.9 Pneumonia, unspecified organism (principal); J44.1 Chronic obstructive pulmonary disease with (acute) exacerbation; B37.0 Candidal stomatitis; J45.901 Unspecified asthma with (acute) exacerbation; G40.909 Epilepsy, unspecified, not intractable, without status epilepticus; E11.9 Type 2 diabetes mellitus without complications; R09.02 Hypoxemia; I10 Essential (primary) hypertension; K59.00 Constipation, unspecified; F79 Unspecified intellectual disabilities; Z79.899 Other long term (current) drug therapy; Z87.01 Personal history of pneumonia (recurrent)
CPT/HCPCS: 36000; 36415; 71045; 71046; 80048; 80053; 81001; 82962; 83605; 85025; 85027; 85610; 85730; 87040; 87086; 87631; 93005; 93041; 94150; 94640; 94760; 94762; 96360; 96361; 96365; 96367; 99285; J0456; J0696; J1650; J1956; J2543; J2920; J2930; J7609; A9270-GY

== ENCOUNTER 2018-10-30 09:56 | Inpatient (IN) | payer MEDICARE ==
[2018-10-30] MEDS ORDERED: MEDICATION INTERVENTION MC SCH (10:12)
[2018-10-30] MEDS ORDERED: SENOKOT 8.6 MG PO PRN (10:12)
[2018-10-30] MEDS ORDERED: TYLENOL 325 MG PO PRN (10:12)
[2018-10-30] MEDS ORDERED: Naprosyn 500 MG PO PRN (10:12)
[2018-10-30] MEDS ORDERED: XANAX 1 MG PO PRN (10:12)
[2018-10-30] MEDS ORDERED: Pepto-Bismol PO PRN (10:12)
[2018-10-30] MEDS: PROVENTIL 2.5 MG/3 ML NEB IH SCH ×4 (11:00→23:26)
[2018-10-30] MEDS: MARY'S MOUTHWASH PO SCH ×3 (13:28→23:00)
[2018-10-30] MEDS: MYSOLINE 50MG PO SCH ×2 (14:29→21:16)
[2018-10-30] MEDS: Zosyn 3.375GM/100 Ml D5W 3.375 GM/100 ML IVPB IV SCH ×2 (14:29→22:25)
[2018-10-30] MEDS: NovoLOG Insulin SQ PRN ×2 (18:05→21:17)
[2018-10-30] MEDS: Advair Hfa 115/21 Common canister IH SCH (20:28)
[2018-10-30] MEDS: Colace 100 MG PO SCH (21:15)
[2018-10-30] MEDS: Levofloxacin 500MG/100ML D5W 500 MG/100 ML BAG IV SCH (21:15)
[2018-10-30] MEDS: solu-MEDROL 40 MG IV SCH (21:15)
[2018-10-30] MEDS: Flomax 0.4 MG PO SCH (21:16)
[2018-10-30] MEDS: Protonix 40MG Tablet PO SCH (21:16)
[2018-10-30] MEDS: ZOLOFT 50 MG TABLET PO SCH (21:16)
[2018-10-30] MEDS: Cymbalta 30 MG Capsule PO SCH (21:16)
[2018-10-30] MEDS: FEOSOL 325 MG PO SCH (21:16)
[2018-10-30] MEDS: Glucophage XR 500 MG PO SCH (21:16)
[2018-10-30] MEDS: Lantus Insulin SQ SCH (21:17)
[2018-10-30] MEDS: NEURONTIN 300 MG PO SCH (21:17)
[2018-10-31] MEDS: PROVENTIL 2.5 MG/3 ML NEB IH SCH ×5 (03:54→23:57)
[2018-10-31] MEDS: MARY'S MOUTHWASH PO SCH ×4 (05:47→23:40)
[2018-10-31] MEDS: Zosyn 3.375GM/100 Ml D5W 3.375 GM/100 ML IVPB IV SCH ×3 (05:47→22:25)
[2018-10-31] MEDS: Advair Hfa 115/21 Common canister IH SCH ×2 (06:50→20:28)
[2018-10-31] MEDS: Spiriva 18 Mcg/Cap Inhaler IH SCH (06:50)
[2018-10-31] MEDS: NovoLOG Insulin SQ PRN ×4 (08:12→21:53)
[2018-10-31] MEDS: Glucophage XR 500 MG PO SCH ×2 (09:32→21:52)
[2018-10-31] MEDS: ECOTRIN 81 MG PO SCH (09:32)
[2018-10-31] MEDS: NEURONTIN 300 MG PO SCH ×2 (09:32→21:52)
[2018-10-31] MEDS: Miralax Powder 17GM PACKET PO SCH (09:32)
[2018-10-31] MEDS: Protonix 40MG Tablet PO SCH ×2 (09:33→21:52)
[2018-10-31] MEDS: FEOSOL 325 MG PO SCH ×2 (09:33→21:52)
[2018-10-31] MEDS: Colace 100 MG PO SCH ×2 (09:33→21:52)
[2018-10-31] MEDS: THERAGRAN MULTIVITAMIN PO SCH (09:33)
[2018-10-31] MEDS: Cymbalta 30 MG Capsule PO SCH ×2 (09:33→21:51)
[2018-10-31] MEDS: Diflucan 100 MG PO SCH (09:33)
[2018-10-31] MEDS: VITAMIN D PO SCH (09:33)
[2018-10-31] MEDS: ENOXAPARIN SODIUM SQ SCH (09:34)
[2018-10-31] MEDS: MYSOLINE 50MG PO SCH ×3 (09:34→21:52)
[2018-10-31] MEDS: solu-MEDROL 40 MG IV SCH ×2 (09:51→21:52)
[2018-10-31] MEDS ORDERED: Aplisol ID ONE (10:00)
[2018-10-31] MEDS: Levofloxacin 500MG/100ML D5W 500 MG/100 ML BAG IV SCH (21:51)
[2018-10-31] MEDS: Flomax 0.4 MG PO SCH (21:52)
[2018-10-31] MEDS: Lantus Insulin SQ SCH (21:52)
[2018-10-31] MEDS: ZOLOFT 50 MG TABLET PO SCH (21:52)
[2018-11-01] MEDS: PROVENTIL 2.5 MG/3 ML NEB IH SCH ×6 (03:36→23:11)
[2018-11-01] MEDS: MARY'S MOUTHWASH PO SCH ×4 (05:25→23:52)
[2018-11-01] MEDS: Zosyn 3.375GM/100 Ml D5W 3.375 GM/100 ML IVPB IV SCH ×3 (05:25→21:55)
[2018-11-01] MEDS: Spiriva 18 Mcg/Cap Inhaler IH SCH (06:40)
[2018-11-01] MEDS: Advair Hfa 115/21 Common canister IH SCH ×2 (06:41→19:45)
[2018-11-01] MEDS: THERAGRAN MULTIVITAMIN PO SCH (08:59)
[2018-11-01] MEDS: Cymbalta 30 MG Capsule PO SCH ×2 (08:59→21:52)
[2018-11-01] MEDS: FEOSOL 325 MG PO SCH ×2 (08:59→21:52)
[2018-11-01] MEDS: Colace 100 MG PO SCH ×2 (09:00→21:52)
[2018-11-01] MEDS: Diflucan 100 MG PO SCH (09:00)
[2018-11-01] MEDS: ECOTRIN 81 MG PO SCH (09:00)
[2018-11-01] MEDS: NEURONTIN 300 MG PO SCH ×2 (09:00→21:52)
[2018-11-01] MEDS: Glucophage XR 500 MG PO SCH ×2 (09:00→21:52)
[2018-11-01] MEDS: VITAMIN D PO SCH (09:00)
[2018-11-01] MEDS: NovoLOG Insulin SQ PRN ×3 (09:00→17:21)
[2018-11-01] MEDS: MYSOLINE 50MG PO SCH ×3 (09:00→21:52)
[2018-11-01] MEDS: Protonix 40MG Tablet PO SCH ×2 (09:00→21:52)
[2018-11-01] MEDS: solu-MEDROL 40 MG IV SCH ×2 (09:00→22:33)
[2018-11-01] MEDS: ENOXAPARIN SODIUM SQ SCH (09:00)
[2018-11-01] MEDS: Miralax Powder 17GM PACKET PO SCH (09:00)
[2018-11-01] MEDS: ZOLOFT 50 MG TABLET PO SCH (21:52)
[2018-11-01] MEDS: Flomax 0.4 MG PO SCH (21:52)
[2018-11-01] MEDS: Levofloxacin 500MG/100ML D5W 500 MG/100 ML BAG IV SCH (21:55)
[2018-11-01] MEDS: Lantus Insulin SQ SCH (21:55)
[2018-11-02] MEDS: PROVENTIL 2.5 MG/3 ML NEB IH SCH ×6 (03:45→22:33)
[2018-11-02] MEDS: Zosyn 3.375GM/100 Ml D5W 3.375 GM/100 ML IVPB IV SCH ×3 (06:40→22:34)
[2018-11-02] MEDS: MARY'S MOUTHWASH PO SCH ×4 (06:40→23:25)
[2018-11-02] MEDS: Advair Hfa 115/21 Common canister IH SCH ×2 (06:45→17:30)
[2018-11-02] MEDS: Spiriva 18 Mcg/Cap Inhaler IH SCH (06:45)
[2018-11-02] MEDS: NovoLOG Insulin SQ PRN ×4 (08:44→22:35)
--- NOTE | 2018-11-02 08:55 | PCM.NOTE ---
Date and Time: 11/02/18854 Subjective Assessment: Patient reports wearing oxygen at night. He continues to have some wheezing and cough. He has been up around the room and hallway with assistance. - Review of Systems Constitutional: No Symptoms Eyes: No Symptoms Ears, Nose, & Throat: No Symptoms Respiratory: Cough, Short Of Breath, Wheezing Cardiac: No Symptoms Abdominal/Gastrointestinal: No Symptoms Genitourinary Symptoms: No Symptoms Musculoskeletal: No Symptoms Skin: No Symptoms Objective Exam General Appearance: no apparent distress, alert Neurologic Exam: alert, cooperative, normal mood/affect Skin Exam: normal color, warm, dry, No rash Respiratory Exam: wheezing, No prolonged expirations, No crackles/rales, No rhonchi Cardiovascular Exam: regular rate/rhythm, normal heart sounds, No murmur, No friction rub, No gallop Gastrointestinal/Abdomen Exam: soft, normal bowel sounds, No tenderness, No distention, No mass Extremity Exam: other (no c/c/e) OBJECTIVE DATA Vital Signs: Vital Signs - 24 hr Temp Pulse Resp BP Pulse Ox 11/02/18 08:37 94 L 11/02/18 08:00 18 11/02/18 07:07 98.3 F 88 18 113/54 95 11/02/18 06:50 82 16 95 11/02/18 04:20 88 20 92 L 11/02/18 04:00 18 11/02/18 00:00 18 11/01/18 23:18 77 18 95 11/01/18 20:00 98.4 F 90 20 134/73 93 L 11/01/18 19:40 87 18 95 11/01/18 16:00 18 11/01/18 14:36 83 18 94 L 11/01/18 12:00 18 11/01/18 10:28 99 H 18 96 Oxygen-Last 24 hours O2 Percentage 2 Liters = 28% Pain Assessment - Last Documented Pain Intensity 0 Pain Scale Used 0-10 Pain Scale,FLACC Intake and Output: Intake & Output 10/31/18 11/01/18 11/02/18 11/03/18 06:59 06:59 06:59 06:59 Intake Total 1813 3700 2720 Output Total 2105 3250 3750 Balance -292 450 -1030 Weight 84.9 kg Lab Results: Accuchecks Date 11/01/18 Date 11/01/18 Date 11/01/18 Time 21:00 Time 16:30 Time 11:30 Accucheck Value: 198 Accucheck Value: 248 Accucheck Value: 242 Assessment/Plan (1) Pneumonia Current Visit: No Status: Acute Qualifiers: Laterality: left Lung location: lower lobe of lung Assessment & Plan: Continue Zosyn and levofloxacin day 5. Continues to slowly improve. Still requiring oxygen at night. Code(s): J18.9 - PNEUMONIA, UNSPECIFIED ORGANISM (2) History of aspiration pneumonia Current Visit: No Status: Chronic Code(s): Z87.01 - PERSONAL HISTORY OF PNEUMONIA (RECURRENT) (3) Chronic respiratory failure with hypoxia Current Visit: Yes Status: Acute Assessment & Plan: Will check overnight pulse oximetry (4) Diabetes mellitus Current Visit: No Status: Chronic Qualifiers: Diabetes mellitus type: type 2 Diabetes mellitus skilled nursing insulin use: without terminal supervisor use Diabetes mellitus complication detail: with unspecified neuropathy Code(s): E11.9 - TYPE 2 DIABETES MELLITUS WITHOUT COMPLICATIONS (5) COPD (chronic obstructive pulmonary disease) Current Visit: No Status: Acute Assessment & Plan: continue IV steroids, IV antibiotics, breathing treatments, oxygen.
[2018-11-02] MEDS: Diflucan 100 MG PO SCH (09:29)
[2018-11-02] MEDS: Cymbalta 30 MG Capsule PO SCH ×2 (09:29→22:32)
[2018-11-02] MEDS: Colace 100 MG PO SCH ×2 (09:29→22:33)
[2018-11-02] MEDS: NEURONTIN 300 MG PO SCH ×2 (09:30→22:33)
[2018-11-02] MEDS: Glucophage XR 500 MG PO SCH ×2 (09:30→22:33)
[2018-11-02] MEDS: solu-MEDROL 40 MG IV SCH ×2 (09:30→23:20)
[2018-11-02] MEDS: THERAGRAN MULTIVITAMIN PO SCH (09:30)
[2018-11-02] MEDS: FEOSOL 325 MG PO SCH ×2 (09:30→22:33)
[2018-11-02] MEDS: ECOTRIN 81 MG PO SCH (09:30)
[2018-11-02] MEDS: ENOXAPARIN SODIUM SQ SCH (09:30)
[2018-11-02] MEDS: Protonix 40MG Tablet PO SCH ×2 (09:30→22:34)
[2018-11-02] MEDS: Miralax Powder 17GM PACKET PO SCH (09:30)
[2018-11-02] MEDS: MYSOLINE 50MG PO SCH ×3 (09:30→22:33)
[2018-11-02] MEDS: VITAMIN D PO SCH (09:31)
[2018-11-02] MEDS: Flomax 0.4 MG PO SCH (22:33)
[2018-11-02] MEDS: ZOLOFT 50 MG TABLET PO SCH (22:33)
[2018-11-02] MEDS: Levofloxacin 500MG/100ML D5W 500 MG/100 ML BAG IV SCH (22:34)
[2018-11-02] MEDS: Lantus Insulin SQ SCH (22:35)
[2018-11-03] MEDS: PROVENTIL 2.5 MG/3 ML NEB IH SCH ×3 (02:55→10:49)
[2018-11-03] MEDS: Zosyn 3.375GM/100 Ml D5W 3.375 GM/100 ML IVPB IV SCH (06:28)
[2018-11-03] MEDS: MARY'S MOUTHWASH PO SCH (06:34)
[2018-11-03 06:49] VITALS: BP 135/71
[2018-11-03] MEDS: Advair Hfa 115/21 Common canister IH SCH (07:34)
[2018-11-03] MEDS: Spiriva 18 Mcg/Cap Inhaler IH SCH (07:34)
[2018-11-03] MEDS: NovoLOG Insulin SQ PRN (07:58)
--- NOTE | 2018-11-03 09:20 | PCM.DCORD ---
- Discharge Discharge Date: 11/03/18 Disposition: Home, Self-Care Condition: Good Prescriptions: New Sulfamethoxazole/Trimethoprim [Bactrim Ds Tablet] 1 each PO BID #10 tablet Docusate Sodium 100 mg [Colace 100 MG] 100 mg PO BID #60 capsule Nystatin/TCN/Hc/Diphenhydramin [Kylee's Mouthwash] 5 ml PO Q6HT #150 bottle Polyethylene Glycol 3350 17 gm [Miralax Powder 17GM PACKET] 17 gm PO DAILY PRN #30 packet PRN Reason: Constipation Multivitamins,Therapeutic Tab* [Theragran Multivitamin] 1 tab PO QAM tab Continue Sertraline HCl 100 mg PO HS Gabapentin 600 mg PO BID Metformin HCl 500 mg [Glucophage 500 MG] 500 mg PO BID Omeprazole 40 mg PO BID Fluticasone/Salmeterol [Advair 250-50 Diskus] 1 puff IH BID Tiotropium [place] Inhaler [Spiriva 18 Mcg/Cap Inhaler] 18 mcg IH DAILY Aspirin [Aspir 81] 81 mg PO DAILY Primidone 50 MG [Mysoline 50Mg] 50 mg PO TID Mirabegron [Myrbetriq] 50 mg PO HS Ferrous Sulfate 325 mg [Feosol 325 mg] 325 mg PO BID Tamsulosin HCl 0.4 mg [Flomax 0.4 MG] 0.4 mg PO HS Duloxetine HCl [Cymbalta] 60 mg PO BID Divalproex Sodium [Depakote] 1,000 mg PO BID Multivitamin [Multivitamins] 1 each PO DAILY Albuterol Sulfate [Proair Hfa] 2 puff IH Q4H PRN PRN PRN Reason: Shortness Of Breath/Wheezing Cholecalciferol (Vitamin D3) [Vitamin D3] 1,000 unit PO DAILY Naproxen [Naprosyn] 500 mg PO BID Hydrocodone/APAP 10/325 mg [[place] 10/325 MG Tablet] 1 tab PO Q4H PRN PRN PRN Reason: Pain Exenatide Microspheres [Bydureon Pen] 2 mg SQ WEEKLY Albuterol Sulfate 0.63 mg IH TID Sennosides [Senna Laxative] 8.6 mg PO UD PRN PRN Reason: Constipation Alprazolam 1 mg [Xanax 1 mg] 1 mg PO BID PRN PRN Reason: Anxiety Discontinued Cefdinir 300 mg PO BID 7 Days #14 capsule Additional Instructions: Home oxygen 2 Liters at night Follow up with: CUONG BROWN [Primary Care Provider] - 11/09/18 11:15 am SUMMER SINGER [ACTIVE STAFF] - 1 Week
[2018-11-03] MEDS: ECOTRIN 81 MG PO SCH (10:12)
[2018-11-03] MEDS: Protonix 40MG Tablet PO SCH (10:12)
[2018-11-03] MEDS: NEURONTIN 300 MG PO SCH (10:12)
[2018-11-03] MEDS: Colace 100 MG PO SCH (10:12)
[2018-11-03] MEDS: Cymbalta 30 MG Capsule PO SCH (10:12)
[2018-11-03] MEDS: Miralax Powder 17GM PACKET PO SCH (10:12)
[2018-11-03] MEDS: MYSOLINE 50MG PO SCH (10:12)
[2018-11-03] MEDS: THERAGRAN MULTIVITAMIN PO SCH (10:12)
[2018-11-03] MEDS: Glucophage XR 500 MG PO SCH (10:13)
[2018-11-03] MEDS: FEOSOL 325 MG PO SCH (10:13)
[2018-11-03] MEDS: VITAMIN D PO SCH (10:13)
[2018-11-03] MEDS: solu-MEDROL 40 MG IV SCH (10:32)
[2018-11-03 10:43] VITALS: PULSE 96; O2SAT 93
== END 2018-11-03 11:35 | disposition home or self-care (01) | DRG 194 ==
LOC: MED SURG 12:30
PROVIDERS: ADMIT Internal Medicine; ATTEND Internal Medicine
DX: J18.9 Pneumonia, unspecified organism (principal); J96.11 Chronic respiratory failure with hypoxia; J44.9 Chronic obstructive pulmonary disease, unspecified; E11.9 Type 2 diabetes mellitus without complications; I10 Essential (primary) hypertension; G40.909 Epilepsy, unspecified, not intractable, without status epilepticus; F79 Unspecified intellectual disabilities; Z87.01 Personal history of pneumonia (recurrent); Z79.899 Other long term (current) drug therapy
CPT/HCPCS: 82962; 94150; 94640; 94760; 94762; J1650; J1956; J2543; J2920; J7609; A9270-GY

== ENCOUNTER 2019-06-19 19:11 | Emergency (ER) | payer MEDICARE ==
[2019-06-19] MEDS ORDERED: Sodium Chloride 0.9% 1000 ML 1,000 ML IV STA (19:29)
[2019-06-19] MEDS ORDERED: TYLENOL 325 MG PO STA (19:29)
[2019-06-19] MEDS ORDERED: Sodium Chloride 0.9% 1000 ML 1,000 ML ONE (19:39)
--- NOTE | 2019-06-19 19:41 | ERPHSYRPT ---
- History of Present Illness Time Seen by Provider: 06/19/19 19:38 Source: patient Exam Limitations: no limitations Patient Subjective Stated Complaint: sister states that pt has had a fever today , highest 101 at home. Triage Nursing Assessment: pt alert, answers questions approp. pt back per wheelchair and transfers to stretcher with assist of 1. unsteady gait. skin warm and dry. respirations nonlabored . Physician History: sister states that pt has had a fever today, highest 101 at home. Timing/Duration: today Fever Severity: moderate Fever Therapy MANUFACTURING COORDINATOR: Acetaminophen Associated Symptoms: cough, shortness of breath, sore throat, weakness International travel in last 2 weeks: No Allergies/Adverse Reactions: bee venom protein (honey bee) Allergy (Verified 06/19/19 19:38) Home Medications: Fluticasone/Salmeterol [Advair 250-50 Diskus] 1 puff IH BID 01/01/12 [History] Gabapentin 600 mg PO TID 01/01/12 [History] Omeprazole 40 mg PO BID 01/01/12 [History] Sertraline HCl 100 mg PO HS 01/01/12 [History] Tiotropium Lottie Inhaler [Spiriva 18 Mcg/Cap Inhaler] 18 mcg IH DAILY [History] Divalproex Sodium [Depakote] 1,000 mg PO BID 03/31/14 [History] Duloxetine HCl [Cymbalta] 60 mg PO BID 03/31/14 [History] Ferrous Sulfate 325 mg [Feosol 325 mg] 325 mg PO BID 03/31/14 [History] Mirabegron [Myrbetriq] 50 mg PO HS 03/31/14 [History] Multivitamin [Multivitamins] 1 each PO DAILY 03/31/14 [History] Primidone 50 MG [Mysoline 50Mg] 50 mg PO TID 03/31/14 [History] Tamsulosin HCl 0.4 mg [Flomax 0.4 MG] 0.4 mg PO HS 03/31/14 [History] Albuterol Sulfate [Proair Hfa] 2 puff IH Q4H PRN PRN 09/06/16 [History] Cholecalciferol (Vitamin D3) [Vitamin D3] 1,000 unit PO DAILY 09/06/16 [History] Acetaminophen 650 mg PO Q6H PRN PRN 06/19/19 [History] Ascorbic Acid [Fruit C-500] 500 mg PO DAILY 06/19/19 [History] Atorvastatin Calcium 40 mg PO HS 06/19/19 [History] Calcium Phosphate Trib/Vit D3 [Calcium-Vitamin D3 Gummies] 1 tab PO TID [History] Epinephrine [Auvi-Q] 0.3 mg SQ PRN 06/19/19 [History] Insulin Glargine [Lantus Insulin] 10 units SQ DAILY 06/19/19 [History] Loratadine 10 mg PO DAILY 06/19/19 [History] Maltodextrin/Xanthan Gum [Thicken Up Clear Powder Packet] 1 packet PO ACHS 06/19 [History] Semaglutide [Ozempic] 0.25 mg SQ DAILY 06/19/19 [History] Warfarin Sodium 7 mg PO DAILY 06/19/19 [History] Hx Tetanus, Diphtheria Vaccination/Date Given: Yes Hx Influenza Vaccination/Date Given: Yes Hx Pneumococcal Vaccination/Date Given: Yes Immunizations Up to Date: Yes - Review of Systems Constitutional: Fever, No Chills Eyes: No Symptoms Ears, Nose, & Throat: No Symptoms Respiratory: Cough, No Dyspnea Cardiac: No Chest Pain, No Edema, No Syncope Abdominal/Gastrointestinal: No Abdominal Pain, No Nausea, No Vomiting, No Diarrhea Genitourinary Symptoms: No Dysuria Musculoskeletal: No Back Pain, No Neck Pain Skin: No Rash Neurological: No Dizziness, No Focal Weakness, No Sensory Changes Psychological: No Symptoms Endocrine: No Symptoms All Other Systems: Reviewed and Negative - Past Medical History Pertinent Past Medical History: Yes Neurological History: Seizures ENT History: No Pertinent History Cardiac History: No Pertinent History, High Cholesterol Respiratory History: Asthma, COPD Endocrine Medical History: Diabetes Type II Musculoskeletal History: Osteoarthritis GI Medical History: Hernia History: Other Psycho-Social History: Depression, Other Male Reproductive Disorders: No Pertinent History Other Medical History: 2L O2 at night, urinary problems - Past Surgical History Past Surgical History: Yes Neuro Surgical History: No Pertinent History Cardiac: No Pertinent History Respiratory: No Pertinent History Gastrointestinal: Hernia Repair, Other Genitourinary: No Pertinent History Musculoskeletal: No Pertinent History Male Surgical History: No Pertinent History Other Surgical History: right side inguinal hernia surgery 1987. nose operation 1991. ABDOMINAL CYST. 2 back surgeries this year - Social History Smoking Status: Former smoker How long have you smoked: UNSURE Exposure to second hand smoke: No Drug Use: none Patient Lives Alone: No - Nursing Vital Signs Nursing Vital Signs: Initial Vital Signs Temperature 102.4 F 06/19/19 19:23 Pulse Rate 106 H 06/19/19 19:23 Respiratory Rate 20 06/19/19 19:23 Blood Pressure 160/89 06/19/19 19:23 O2 Sat by Pulse Oximetry 91 L 06/19/19 19:23 Pain Scale Pain Intensity 5 - Physical Exam General Appearance: no apparent distress, alert Eye Exam: PERRL/EOMI ENT Exam: normal ENT inspection, No pharyngeal erythema, No tonsillar exudate Neck Exam: supple, full range of motion, No meningismus Respiratory Exam: decreased breath sounds, rhonchi Cardiovascular/Chest Exam: normal heart sounds, regular rate/rhythm, No murmur, No edema Gastrointestinal/Abdominal Exam: soft, non tender, no distention Extremity Exam: non-tender, normal range of motion, normal inspection, normal capillary refill Neurologic Exam: alert, oriented x 3, cooperative, 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, normal mood/affect, sensation nml, No motor deficits Skin Exam: normal color, warm, dry, No rash SpO2: 91 - Course Nursing assessment & vital signs reviewed: Yes - Radiology Exams Chest X-ray Interpretation: Reviewed by me, Negative Ordered Tests: Active Orders 24 hr Category Date Time Status IV Insertion STAT Care 06/19/19 19:37 Active IV Insertion-2nd Peripheral STAT Care 06/19/19 19:38 Active Oxygen-ED Only Nasal Cannula 2 lpm Care 06/19/19 19:40 Active Pulse Oximetry (ED) STAT Care 06/19/19 19:39 Active CHEST 1 VIEW (PORTABLE) Stat Exams 06/19/19 19:31 Taken CHEST 1 VIEW (PORTABLE) Stat Exams 06/19/19 20:59 Taken BLOOD CULTURE Stat Lab 06/19/19 19:30 Ordered CBC W DIFF Stat Lab 06/19/19 19:53 Completed CMP Stat Lab 06/19/19 19:53 Completed Lactic Acid Stat Lab 06/19/19 21:30 Results PT INR [PROTIME WITH INR] Stat Lab 06/19/19 20:34 Completed UA W/RFX UR CULTURE Stat Lab 06/19/19 19:55 Completed Respiratory Therapy Assessment DAILY RT 06/19/19 20:42 Completed Medication Summary Discontinued Medications Generic Name Dose Route Start Last Admin Trade Name Tianna PRN Reason Stop Dose Admin Acetaminophen 975 mg 06/19/19 19:29 06/19/19 19:53 Tylenol 325 Mg PO 06/19/19 19:30 Not Given STAT STA Albuterol/Ipratropium 3 ml 06/19/19 20:34 06/19/19 20:43 Duoneb 0.5-3 Mg/3 Ml Neb IH 06/19/19 20:35 3 ml STAT ONE Administration Albuterol/Ipratropium Confirm 06/19/19 20:41 Duoneb 0.5-3 Mg/3 Ml Neb Administered 06/19/19 20:42 Dose 3 ml IH .STK-MED ONE Sodium Chloride 1,000 mls @ 999 mls/hr 06/19/19 19:29 06/19/19 20:42 Sodium Chloride 0.9% 1000 Ml IV 06/19/19 20:29 Infused .Q1H1M STA Infusion Sodium Chloride Confirm 06/19/19 19:39 Sodium Chloride 0.9% 1000 Ml Administered 06/19/19 19:40 Dose 1,000 mls @ ud .ROUTE .STK-MED ONE Ibuprofen 600 mg 06/19/19 20:36 06/19/19 20:40 Motrin 600 Mg PO 06/19/19 20:37 600 mg STAT ONE Administration Ibuprofen Confirm 06/19/19 20:38 Motrin 600 Mg Administered 06/19/19 20:39 Dose 600 mg .ROUTE .STK-MED ONE Lab/Rad Data: Laboratory Result Diagrams 06/19/19 19:53 06/19/19 19:53 Laboratory Results 06/19/19 06/19/19 06/19/19 Range/Units 21:30 21:25 20:34 WBC (4.0-10.5) K/mm3 RBC (4.1-5.6) M/mm3 Hgb (12.5-18.0) gm/dl Hct (42-50) % MCV (78-100) fl MCH (26-32) pg MCHC (32-36) g/dl RDW (11.5-14.0) % Plt Count (150-450) K/mm3 MPV (6-9.5) fl Gran % (36.0-66.0) % Eos # (Auto) (0-0.5) Absolute Lymphs (auto) (1.0-4.6) Absolute Monos (auto) (0.0-1.3) Lymphocytes % (24.0-44.0) % Monocytes % (0.0-12.0) % Eosinophils % (0.00-5.0) % Basophils % (0.0-0.4) % Absolute Granulocytes (1.4-6.9) Basophils # (0-0.4) PT 18.0 H (8.83-12.87) SECONDS INR 1.58 (0.8-3.0) Sodium (137-145) mmol/L Potassium (3.5-5.1) mmol/L Chloride (98-107) mmol/L Carbon Dioxide (22-30) mmol/L Anion Gap (5-15) MEQ/L BUN (9-20) mg/dL Creatinine (0.66-1.25) mg/dL Estimated GFR ML/MIN Glucose (74-106) mg/dL Lactic Acid 1.9 (0.4-2.0) Calcium (8.4-10.2) mg/dL Total Bilirubin (0.2-1.3) mg/dL AST (17-59) U/L ALT (0-50) U/L Alkaline Phosphatase (38-126) U/L Serum Total Protein (6.3-8.2) g/dL Albumin (3.5-5.0) g/dL Urine Color (YELLOW) Urine Appearance (CLEAR) Urine pH (5-6) Ur Specific [facility] (1.005-1.025) Urine Protein (Negative) Urine Ketones (NEGATIVE) Urine Blood (0-5) Perez/ul Urine Nitrite (NEGATIVE) Urine Bilirubin (NEGATIVE) Urine Urobilinogen (0-1) mg/dL Ur Leukocyte Esterase (NEGATIVE) Urine WBC (Auto) (0-5) /HPF Urine RBC (Auto) (0-2) /HPF U Epithel Cells (Auto) (FEW) /HPF Urine Bacteria (Auto) (NEGATIVE) /HPF Urine Mucus (Auto) (NEGATIVE) /HPF Urine Culture Reflexed (NO) Urine Glucose (NEGATIVE) mg/dL Influenza Type A Ag NEGATIVE (NEGATIVE) Influenza Type B Ag NEGATIVE (NEGATIVE) RSV (PCR) NEGATIVE (Negative) 06/19/19 06/19/19 06/19/19 Range/Units 19:55 19:53 19:53 WBC 9.8 (4.0-10.5) K/mm3 RBC 4.09 L (4.1-5.6) M/mm3 Hgb 11.0 L (12.5-18.0) gm/dl Hct 37.3 L (42-50) % MCV 91.2 (78-100) fl MCH 26.8 (26-32) pg MCHC 29.5 L (32-36) g/dl RDW 18.6 H (11.5-14.0) % Plt Count 150 (150-450) K/mm3 MPV 10.4 H (6-9.5) fl Gran % 59.6 (36.0-66.0) % Eos # (Auto) 0.07 (0-0.5) Absolute Lymphs (auto) 2.95 (1.0-4.6) Absolute Monos (auto) 0.90 (0.0-1.3) Lymphocytes % 30.3 (24.0-44.0) % Monocytes % 9.2 (0.0-12.0) % Eosinophils % 0.7 (0.00-5.0) % Basophils % 0.2 (0.0-0.4) % Absolute Granulocytes 5.81 (1.4-6.9) Basophils # 0.02 (0-0.4) PT (8.83-12.87) SECONDS INR (0.8-3.0) Sodium 143 (137-145) mmol/L Potassium 4.6 (3.5-5.1) mmol/L Chloride 98 (98-107) mmol/L Carbon Dioxide 34 H (22-30) mmol/L Anion Gap 15.5 H (5-15) MEQ/L BUN 16 (9-20) mg/dL Creatinine 0.88 (0.66-1.25) mg/dL Estimated GFR > 60.0 ML/MIN Glucose 133 H (74-106) mg/dL Lactic Acid (0.4-2.0) Calcium 9.5 (8.4-10.2) mg/dL Total Bilirubin 0.40 (0.2-1.3) mg/dL AST 29 (17-59) U/L ALT 14 (0-50) U/L Alkaline Phosphatase 73 (38-126) U/L Serum Total Protein 7.5 (6.3-8.2) g/dL Albumin 4.2 (3.5-5.0) g/dL Urine Color YELLOW (YELLOW) Urine Appearance CLEAR (CLEAR) Urine pH 6.0 (5-6) Ur Specific [facility] 1.020 (1.005-1.025) Urine Protein NEGATIVE (Negative) Urine Ketones NEGATIVE (NEGATIVE) Urine Blood NEGATIVE (0-5) Perez/ul Urine Nitrite NEGATIVE (NEGATIVE) Urine Bilirubin NEGATIVE (NEGATIVE) Urine Urobilinogen NEGATIVE (0-1) mg/dL Ur Leukocyte Esterase NEGATIVE (NEGATIVE) Urine WBC (Auto) NONE (0-5) /HPF Urine RBC (Auto) NONE (0-2) /HPF U Epithel Cells (Auto) NONE (FEW) /HPF Urine Bacteria (Auto) NONE (NEGATIVE) /HPF Urine Mucus (Auto) SLIGHT (NEGATIVE) /HPF Urine Culture Reflexed NO (NO) Urine Glucose NEGATIVE (NEGATIVE) mg/dL Influenza Type A Ag (NEGATIVE) Influenza Type B Ag (NEGATIVE) RSV (PCR) (Negative) - Progress Progress: improved Counseled pt/family regarding: lab results, diagnosis, need for follow-up, rad results - Departure Departure Disposition: Home Clinical Impression: Fever Qualifiers: Fever type: unspecified Qualified Code(s): R50.9 - Fever, unspecified Condition: Stable Critical Care Time: No Referrals: CUONG BROWN [Primary Care Provider] - Instructions: Fever, Adult (DC) Additional Instructions: Discharge/Care Plan HANS RIOS was seen on 06/19/19 in the Emergency Room. The patient was counseled regarding Diagnosis,Lab results, Imaging studies, need for follow up and when to return to the Emergency Room. Prescriptions given: Discharge Note I have spoken with the patient and/or caregivers. I have explained the patient' s condition, diagnosis and treatment plan based on the information available to me at this time. I have answered the patient's and/or caregiver's questions and addressed any concerns. The patient and/or caregivers have as good understanding of the patient's diagnosis, condition and treatment plan as can be expected at this point. The vital signs have been stable. The patient's condition is stable and appropriate for discharge from the emergency department. The patient will pursue further outpatient evaluation with the primary care physician or other designated or consulting physician as outlined in the discharge instructions. The patient and/or caregivers are agreeable to this plan of care and follow-up instructions have been explained in detail. The patient and/or caregivers have received these instruction. The patient/and or caregivers are aware that any significant change in condition or worsening of symptoms should prompt an immediate return to this or the closest emergency department or call 911.
[2019-06-19 19:55] LABS: Absolute Neutrophil Ct (ANC) 5.81 (1.4-6.9); BASOPHIL % 0.2 % (0.0-0.4); Basophil (Absolute #) 0.02 (0-0.4); Eosinophil % 0.7 % (0.00-5.0); Eosinophil (Absolute #) 0.07 (0-0.5); Hematocrit 37.3 % (42-50); Lymphocyte (Absolute #) 2.95 (1.0-4.6); Lymphocytes % 30.3 % (24.0-44.0); Mean Cell Volume 91.2 fl (78-100); Mean Corpuscular Hgb Concent. 29.5 g/dl (32-36); Mean Platelet Volume 10.4 fl (6-9.5); Monocytes % 9.2 % (0.0-12.0); Neutrophil % 59.6 % (36.0-66.0); Platelet Count 150 K/mm3 (150-450); Red Blood Count 4.09 M/mm3 (4.1-5.6); Red Cell Distribution Width 18.6 % (11.5-14.0); White Blood Count 9.8 K/mm3 (4.0-10.5)
[2019-06-19 19:56] LABS: Mean Corpuscular Hemoglobin 26.8 pg (26-32)
[2019-06-19 20:08] LABS: Appearance CLEAR (CLEAR); Bilirubin NEGATIVE (NEGATIVE); Blood NEGATIVE Ery/ul (0-5); Glucose NEGATIVE (NEGATIVE); Ketones NEGATIVE (NEGATIVE); Leukocyte Esterase NEGATIVE (NEGATIVE); Mucus SLIGHT /HPF (NEGATIVE); Nitrite NEGATIVE (NEGATIVE); Protein,Urine Dip NEGATIVE (Negative); Urobilinogen NEGATIVE mg/dL (0-1)
[2019-06-19 20:10] LABS: ALBUMIN 4.2 g/dL (3.5-5.0); ALKALINE PHOSPHATASE 73 U/L (38-126); ANION GAP 15.5 MEQ/L (5-15); BLOOD UREA NITROGEN 16 mg/dL (9-20); CHLORIDE 98 mmol/L (98-107); Calcium 9.5 mg/dL (8.4-10.2); Carbon Dioxide 34 mmol/L (22-30); Creatinine 1 0.88 mg/dL (0.66-1.25); Glucose 133 mg/dL (74-106); Potassium 4.6 mmol/L (3.5-5.1); SGOT/AST 29 U/L (17-59); SGPT/ALT 14 U/L (0-50); SODIUM 143 mmol/L (137-145); Total Protein 7.5 g/dL (6.3-8.2)
[2019-06-19] MEDS ORDERED: DUONEB 0.5-3 MG/3 ml Neb IH ONE ×2 (20:34→20:41)
[2019-06-19] MEDS ORDERED: MOTRIN 600 MG PO ONE (20:36)
[2019-06-19] MEDS ORDERED: MOTRIN 600 MG ONE (20:38)
[2019-06-19 20:41] LABS: INR 1.58 (0.8-3.0)
[2019-06-19 21:34] LABS: Lactic Acid 1.9 (0.4-2.0)
[2019-06-19 21:48] LABS: INFLUENZA A NEGATIVE (NEGATIVE); INFLUENZA B NEGATIVE (NEGATIVE); RESPIRATORY SYNCTIAL VIRUS NEGATIVE (Negative)
[2019-06-19 21:53] VITALS: BP 111/58; PULSE 110; O2SAT 95
--- NOTE | 2019-06-20 10:25 | XRAY ---
Indication: Fever, cough, short of breath, and possible sepsis. Comparison: October 29, 2018. Portable apical lordotic chest underinflated accentuating the cardiopulmonary structures. No focal infiltrate, consolidation, or large effusion. Heart is not enlarged. Bony thorax intact. Impression: Nonacute underinflated chest.
--- NOTE | 2019-06-20 10:27 | XRAY ---
Indication: Fever, cough, short of breath, and possible sepsis. Comparison: Taken earlier in the day. Portable chest better inflated with now mild bibasilar infiltrates/atelectasis. Heart is not enlarged. Remaining chest unremarkable.
== END 2019-06-19 22:04 | disposition home or self-care (01) ==
LOC: ED 19:11
DX: R50.9 Fever, unspecified (principal); R06.02 Shortness of breath; Z79.01 Long term (current) use of anticoagulants
CPT/HCPCS: 36000; 36415; 71045; 80053; 81001; 83605; 85025; 85610; 87040; 87631; 94640; 94760; 96360; 99284; A9270-GY

== ENCOUNTER 2019-06-22 08:12 | Inpatient (IN) | payer MEDICARE ==
--- NOTE | 2019-06-22 08:52 | ERPHSYRPT ---
- History of Present Illness Time Seen by Provider: 06/22/19 08:30 Source: patient, family, EMS Exam Limitations: no limitations Physician History: 64 y/o diabetic white male with h/o copd presents wit 5 to 6 day h/o cough and fever. pt underwent workup here in this ED 4 days ago. pt discharged to home. no antibx prescribed. pt sx not improving. fever as high as 103 F. Pt has received one liter NS prior to arrival here. pt denies cp, denies abd, denies n/ v/d. pt uses oxygen 2liters nc at night. 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 Associated Symptoms: confusion, cough, weakness, No abdominal pain, No chest pain, No nausea/vomiting, No shortness of breath International travel in last 2 weeks: No Allergies/Adverse Reactions: adhesive tape Allergy (Verified 06/22/19 08:47) bee venom protein (honey bee) Allergy (Verified 06/22/19 08:48) Home Medications: Fluticasone/Salmeterol [Advair 250-50 Diskus] 1 puff IH BID 01/01/12 [History] Gabapentin 600 mg PO TID 01/01/12 [History] Omeprazole 40 mg PO BID 01/01/12 [History] Sertraline HCl 100 mg PO HS 01/01/12 [History] Tiotropium [place] Inhaler [Spiriva 18 Mcg/Cap Inhaler] 18 mcg IH DAILY [History] Divalproex Sodium [Depakote] 1,000 mg PO BID 03/31/14 [History] Duloxetine HCl [Cymbalta] 60 mg PO BID 03/31/14 [History] Ferrous Sulfate 325 mg [Feosol 325 mg] 325 mg PO BID 03/31/14 [History] Mirabegron [Myrbetriq] 50 mg PO HS 03/31/14 [History] Multivitamin [Multivitamins] 1 each PO DAILY 03/31/14 [History] Primidone 50 MG [Mysoline 50Mg] 50 mg PO TID 03/31/14 [History] Tamsulosin HCl 0.4 mg [Flomax 0.4 MG] 0.4 mg PO HS 03/31/14 [History] Albuterol Sulfate [Proair Hfa] 2 puff IH Q4H PRN PRN 09/06/16 [History] Cholecalciferol (Vitamin D3) [Vitamin D3] 1,000 unit PO DAILY 09/06/16 [History] Acetaminophen 650 mg PO Q6H PRN PRN 06/19/19 [History] Ascorbic Acid [Fruit C-500] 500 mg PO DAILY 06/19/19 [History] Atorvastatin Calcium 40 mg PO HS 06/19/19 [History] Calcium Phosphate Trib/Vit D3 [Calcium-Vitamin D3 Gummies] 1 tab PO TID [History] Epinephrine [Auvi-Q] 0.3 mg SQ PRN 06/19/19 [History] Insulin Glargine [Lantus Insulin] 10 units SQ DAILY 06/19/19 [History] Loratadine 10 mg PO DAILY 06/19/19 [History] Maltodextrin/Xanthan Gum [Thicken Up Clear Powder Packet] 1 packet PO ACHS 06/19 [History] Semaglutide [Ozempic] 0.25 mg SQ DAILY 06/19/19 [History] Warfarin Sodium 7 mg PO DAILY 06/19/19 [History] Hx Tetanus, Diphtheria Vaccination/Date Given: Yes Hx Influenza Vaccination/Date Given: Yes Hx Pneumococcal Vaccination/Date Given: Yes - Review of Systems Constitutional: Fever, Chills, Weakness Eyes: No Symptoms Ears, Nose, & Throat: No Symptoms Respiratory: Cough, No Dyspnea, No Stridor, No Wheezing Cardiac: No Symptoms, No Chest Pain, No Palpitations, No Syncope Abdominal/Gastrointestinal: No Symptoms, No Abdominal Pain, No Nausea, No Vomiting, No Diarrhea Genitourinary Symptoms: No Symptoms Musculoskeletal: No Symptoms Skin: No Symptoms Neurological: No Symptoms Psychological: No Symptoms Endocrine: No Symptoms Hematologic/Lymphatic: No Symptoms Immunological/Allergic: No Symptoms All Other Systems: Reviewed and Negative - Past Medical History Pertinent Past Medical History: Yes Neurological History: Seizures ENT History: No Pertinent History Cardiac History: No Pertinent History, High Cholesterol Respiratory History: Asthma, COPD Endocrine Medical History: Diabetes Type II Musculoskeletal History: Osteoarthritis GI Medical History: Hernia History: Other Psycho-Social History: Depression, Other Male Reproductive Disorders: No Pertinent History Other Medical History: 2L O2 at night, urinary problems - Past Surgical History Past Surgical History: Yes Neuro Surgical History: No Pertinent History Cardiac: No Pertinent History Respiratory: No Pertinent History Gastrointestinal: Hernia Repair, Other Genitourinary: No Pertinent History Musculoskeletal: No Pertinent History Male Surgical History: No Pertinent History Other Surgical History: right side inguinal hernia surgery 1987. nose operation 1991. ABDOMINAL CYST. 2 back surgeries this year - Social History Smoking Status: Former smoker How long have you smoked: UNSURE Exposure to second hand smoke: No Drug Use: none Patient Lives Alone: No - Nursing Vital Signs Nursing Vital Signs: Initial Vital Signs Temperature 101.3 F 06/22/19 08:18 Pulse Rate 122 H 06/22/19 08:18 Respiratory Rate 28 H 06/22/19 08:18 Blood Pressure 123/71 06/22/19 08:18 O2 Sat by Pulse Oximetry 96 06/22/19 08:18 Pain Scale Pain Intensity 6 - Physical Exam General Appearance: mild distress, alert, anxiety, No lethargy Eye Exam: PERRL/EOMI, eyes nml inspection ENT Exam: normal ENT inspection, TMs normal, pharynx normal Neck Exam: normal inspection, non-tender, supple, full range of motion Respiratory Exam: no respiratory distress, no accessory muscle use, rhonchi, No chest non-tender, No respiratory distress Cardiovascular/Chest Exam: normal heart sounds, tachycardia Gastrointestinal/Abdominal Exam: soft, non tender, no distention, no mass, no guarding, no ecchymosis, no organomegaly, no pulsatile mass Rectal Exam: not done Extremity Exam: non-tender, normal range of motion, normal inspection Neurologic Exam: alert, oriented x 3, cooperative, roofer gypsum II-XII nml as tested, normal mood/affect, nml cerebellar function, nml station & gait Skin Exam: normal color, warm, dry SpO2 Interpretation: hypoxic O2 Delivery: Room Air Ordered Tests: Active Orders 24 hr Category Date Time Status Pad Extraction Tender STAT Care 06/22/19 08:56 Active Pulse Oximetry (ED) STAT Care 06/22/19 08:55 Active CHEST 1 VIEW (PORTABLE) Stat Exams 06/22/19 08:56 Completed BLOOD CULTURE Stat Lab 06/22/19 09:15 Received CBC W DIFF Stat Lab 06/22/19 09:15 Completed CMP Stat Lab 06/22/19 09:15 Completed CULTURE,URINE Stat Lab 06/22/19 09:15 Received Lactic Acid Stat Lab 06/22/19 09:20 Completed [place] Screen Stat Lab 06/22/19 09:15 Completed PT INR [PROTIME WITH INR] Stat Lab 06/22/19 09:15 Completed UA W/RFX UR CULTURE Stat Lab 06/22/19 09:15 Completed Transfer Order Routine Transfer 06/22/19 Ordered Medication Summary Discontinued Medications Generic Name Dose Route Start Last Admin Trade Name Tianna PRN Reason Stop Dose Admin Acetaminophen 650 mg 06/22/19 08:55 06/22/19 09:13 Tylenol 325 Mg PO 06/22/19 08:56 650 mg STAT STA Administration Acetaminophen Confirm 06/22/19 09:10 Tylenol 325 Mg Administered 06/22/19 09:11 Dose 650 mg .ROUTE .STK-MED ONE Sodium Chloride 1,000 mls @ 999 mls/hr 06/22/19 08:55 06/22/19 10:55 Sodium Chloride 0.9% 1000 Ml IV 06/22/19 09:55 Infused .Q1H1M STA Infusion Meropenem 1 g/ Sodium Chloride 100 mls @ 200 mls/hr 06/22/19 08:57 06/22/19 10:55 IV 06/22/19 09:26 Infused STAT STA Infusion Sodium Chloride Confirm 06/22/19 09:10 Sodium Chloride 0.9% 1000 Ml Administered 06/22/19 09:11 Dose 1,000 mls @ ud .ROUTE .STK-MED ONE Sodium Chloride Confirm 06/22/19 09:27 Sodium Chloride 0.9% 100 Ml Ivpb Administered 06/22/19 09:28 Dose 100 mls @ ud IV .STK-MED ONE Sodium Chloride 1,000 mls @ 999 mls/hr 06/22/19 10:09 06/22/19 11:39 Sodium Chloride 0.9% 1000 Ml IV 06/22/19 11:09 Infused .Q1H1M STA Infusion Sodium Chloride Confirm 06/22/19 10:31 Sodium Chloride 0.9% 1000 Ml Administered 06/22/19 10:32 Dose 1,000 mls @ ud .ROUTE .STK-MED ONE Meropenem Confirm 06/22/19 09:27 Merrem 1 Gm Administered 06/22/19 09:28 Dose 1 g IV .STK-MED ONE Lab/Rad Data: Laboratory Result Diagrams 06/22/19 09:15 06/22/19 09:15 Laboratory Results 06/22/19 06/22/19 06/22/19 Range/Units 09:20 09:15 09:15 WBC (4.0-10.5) K/mm3 RBC (4.1-5.6) M/mm3 Hgb (12.5-18.0) gm/dl Hct (42-50) % MCV (78-100) fl MCH (26-32) pg MCHC (32-36) g/dl RDW (11.5-14.0) % Plt Count (150-450) K/mm3 MPV (6-9.5) fl Gran % (36.0-66.0) % Eos # (Auto) (0-0.5) Absolute Lymphs (auto) (1.0-4.6) Absolute Monos (auto) (0.0-1.3) Lymphocytes % (24.0-44.0) % Monocytes % (0.0-12.0) % Eosinophils % (0.00-5.0) % Basophils % (0.0-0.4) % Absolute Granulocytes (1.4-6.9) Basophils # (0-0.4) PT 30.9 H (8.83-12.87) SECONDS INR 2.68 (0.8-3.0) Sodium (137-145) mmol/L Potassium (3.5-5.1) mmol/L Chloride (98-107) mmol/L Carbon Dioxide (22-30) mmol/L Anion Gap (5-15) MEQ/L BUN (9-20) mg/dL Creatinine (0.66-1.25) mg/dL Estimated GFR ML/MIN Glucose (74-106) mg/dL Lactic Acid 1.3 (0.4-2.0) Calcium (8.4-10.2) mg/dL Total Bilirubin (0.2-1.3) mg/dL AST (17-59) U/L ALT (0-50) U/L Alkaline Phosphatase (38-126) U/L Serum Total Protein (6.3-8.2) g/dL Albumin (3.5-5.0) g/dL Urine Color YELLOW (YELLOW) Urine Appearance CLEAR (CLEAR) Urine pH 6.0 (5-6) Ur Specific [place] 1.010 (1.005-1.025) Urine Protein TRACE (Negative) Urine Ketones NEGATIVE (NEGATIVE) Urine Blood 5-10 (0-5) Perez/ul Urine Nitrite NEGATIVE (NEGATIVE) Urine Bilirubin NEGATIVE (NEGATIVE) Urine Urobilinogen NORMAL (0-1) mg/dL Ur Leukocyte Esterase TRACE (NEGATIVE) Urine WBC (Auto) 3-5 (0-5) /HPF Urine RBC (Auto) 0-2 (0-2) /HPF U Epithel Cells (Auto) RARE (FEW) /HPF Urine Bacteria (Auto) FEW (NEGATIVE) /HPF Urine Culture Reflexed ORDERED SEPARATELY (NO) Urine Glucose NEGATIVE (NEGATIVE) mg/dL Valproic Acid (50-100) ug/mL Monoscreen (Negative) Influenza Type A Ag (NEGATIVE) Influenza Type B Ag (NEGATIVE) RSV (PCR) (Negative) Group A Strep Antibody (NEGATIVE) 06/22/19 06/22/19 06/22/19 Range/Units 09:15 09:15 09:15 WBC (4.0-10.5) K/mm3 RBC (4.1-5.6) M/mm3 Hgb (12.5-18.0) gm/dl Hct (42-50) % MCV (78-100) fl MCH (26-32) pg MCHC (32-36) g/dl RDW (11.5-14.0) % Plt Count (150-450) K/mm3 MPV (6-9.5) fl Gran % (36.0-66.0) % Eos # (Auto) (0-0.5) Absolute Lymphs (auto) (1.0-4.6) Absolute Monos (auto) (0.0-1.3) Lymphocytes % (24.0-44.0) % Monocytes % (0.0-12.0) % Eosinophils % (0.00-5.0) % Basophils % (0.0-0.4) % Absolute Granulocytes (1.4-6.9) Basophils # (0-0.4) PT (8.83-12.87) SECONDS INR (0.8-3.0) Sodium (137-145) mmol/L Potassium (3.5-5.1) mmol/L Chloride (98-107) mmol/L Carbon Dioxide (22-30) mmol/L Anion Gap (5-15) MEQ/L BUN (9-20) mg/dL Creatinine (0.66-1.25) mg/dL Estimated GFR ML/MIN Glucose (74-106) mg/dL Lactic Acid (0.4-2.0) Calcium (8.4-10.2) mg/dL Total Bilirubin (0.2-1.3) mg/dL AST (17-59) U/L ALT (0-50) U/L Alkaline Phosphatase (38-126) U/L Serum Total Protein (6.3-8.2) g/dL Albumin (3.5-5.0) g/dL Urine Color (YELLOW) Urine Appearance (CLEAR) Urine pH (5-6) Ur Specific [place] (1.005-1.025) Urine Protein (Negative) Urine Ketones (NEGATIVE) Urine Blood (0-5) Perez/ul Urine Nitrite (NEGATIVE) Urine Bilirubin (NEGATIVE) Urine Urobilinogen (0-1) mg/dL Ur Leukocyte Esterase (NEGATIVE) Urine WBC (Auto) (0-5) /HPF Urine RBC (Auto) (0-2) /HPF U Epithel Cells (Auto) (FEW) /HPF Urine Bacteria (Auto) (NEGATIVE) /HPF Urine Culture Reflexed (NO) Urine Glucose (NEGATIVE) mg/dL Valproic Acid 55.9 (50-100) ug/mL Monoscreen POSITIVE (Negative) Influenza Type A Ag NEGATIVE (NEGATIVE) Influenza Type B Ag NEGATIVE (NEGATIVE) RSV (PCR) NEGATIVE (Negative) Group A Strep Antibody NEGATIVE (NEGATIVE) 06/22/19 06/22/19 Range/Units 09:15 09:15 WBC 8.0 (4.0-10.5) K/mm3 RBC 3.50 L (4.1-5.6) M/mm3 Hgb 9.6 L (12.5-18.0) gm/dl Hct 31.5 L (42-50) % MCV 90.0 (78-100) fl MCH 27.4 (26-32) pg MCHC 30.5 L (32-36) g/dl RDW 17.9 H (11.5-14.0) % Plt Count 153 (150-450) K/mm3 MPV 10.7 H (6-9.5) fl Gran % 66.0 (36.0-66.0) % Eos # (Auto) 0.03 (0-0.5) Absolute Lymphs (auto) 2.17 (1.0-4.6) Absolute Monos (auto) 0.53 (0.0-1.3) Lymphocytes % 27.0 (24.0-44.0) % Monocytes % 6.6 (0.0-12.0) % Eosinophils % 0.4 (0.00-5.0) % Basophils % 0.0 (0.0-0.4) % Absolute Granulocytes 5.31 (1.4-6.9) Basophils # 0 (0-0.4) PT (8.83-12.87) SECONDS INR (0.8-3.0) Sodium 140 (137-145) mmol/L Potassium 4.3 (3.5-5.1) mmol/L Chloride 102 (98-107) mmol/L Carbon Dioxide 29 (22-30) mmol/L Anion Gap 13.1 (5-15) MEQ/L BUN 13 (9-20) mg/dL Creatinine 0.60 L (0.66-1.25) mg/dL Estimated GFR > 60.0 ML/MIN Glucose 171 H (74-106) mg/dL Lactic Acid (0.4-2.0) Calcium 8.6 (8.4-10.2) mg/dL Total Bilirubin 0.20 (0.2-1.3) mg/dL AST 31 (17-59) U/L ALT 17 (0-50) U/L Alkaline Phosphatase 65 (38-126) U/L Serum Total Protein 6.4 (6.3-8.2) g/dL Albumin 3.5 (3.5-5.0) g/dL Urine Color (YELLOW) Urine Appearance (CLEAR) Urine pH (5-6) Ur Specific [place] (1.005-1.025) Urine Protein (Negative) Urine Ketones (NEGATIVE) Urine Blood (0-5) Perez/ul Urine Nitrite (NEGATIVE) Urine Bilirubin (NEGATIVE) Urine Urobilinogen (0-1) mg/dL Ur Leukocyte Esterase (NEGATIVE) Urine WBC (Auto) (0-5) /HPF Urine RBC (Auto) (0-2) /HPF U Epithel Cells (Auto) (FEW) /HPF Urine Bacteria (Auto) (NEGATIVE) /HPF Urine Culture Reflexed (NO) Urine Glucose (NEGATIVE) mg/dL Valproic Acid (50-100) ug/mL Monoscreen (Negative) Influenza Type A Ag (NEGATIVE) Influenza Type B Ag (NEGATIVE) RSV (PCR) (Negative) Group A Strep Antibody (NEGATIVE) - Progress Progress: improved, re-examined Progress Note: 06/22/19 12:[address] huitron. i reviewed pt hx, lab and xray results. she accepts pt for placement in observation 06/22/19 12:50 no beds available yet. in a few hours. 06/22/19 12:51 cxr-bibasilar infiltrates Discussed with : Rafael Will see patient in: hospital (observation) Counseled pt/family regarding: lab results, diagnosis, need for follow-up, rad results - Departure Departure Disposition: Observation Clinical Impression: Pneumonia, Mononucleosis, Sepsis Condition: Fair Critical Care Time: Yes Critical Care Time(excluding separately billable procedures): Critical 30-74 mins Referrals: CUONG HUITRON [Primary Care Provider] -
[2019-06-22] MEDS ORDERED: Sodium Chloride 0.9% 1000 ML 1,000 ML IV STA ×2 (08:55→10:09)
[2019-06-22] MEDS ORDERED: TYLENOL 325 MG PO STA (08:55)
[2019-06-22] MEDS ORDERED: Merrem 1 GM 1 G in Sodium Chloride 100ML MINI-BAG PLUS 100 ML IV STA (08:57)
[2019-06-22] MEDS ORDERED: Sodium Chloride 0.9% 1000 ML 1,000 ML ONE ×2 (09:10→10:31)
[2019-06-22] MEDS ORDERED: TYLENOL 325 MG ONE (09:10)
--- NOTE | 2019-06-22 09:21 | XRAY ---
Indication: Short of breath and fever. Comparison: June 19, 2019. Portable chest again demonstrates mild bibasilar infiltrates/atelectasis and tiny right effusion. Heart is not enlarged. No new cardiopulmonary abnormalities.
[2019-06-22] MEDS ORDERED: Sodium Chloride 0.9% 100 ML IVPB 100 ML IV ONE (09:27)
[2019-06-22] MEDS ORDERED: Merrem 1 GM IV ONE (09:27)
[2019-06-22 09:35] LABS: Absolute Neutrophil Ct (ANC) 5.31 (1.4-6.9); Basophil (Absolute #) 0 (0-0.4); Eosinophil % 0.4 % (0.00-5.0); Eosinophil (Absolute #) 0.03 (0-0.5); Hematocrit 31.5 % (42-50); Hemoglobin 9.6 gm/dl (12.5-18.0); Lymphocyte (Absolute #) 2.17 (1.0-4.6); Mean Corpuscular Hemoglobin 27.4 pg (26-32); Mean Corpuscular Hgb Concent. 30.5 g/dl (32-36); Mean Platelet Volume 10.7 fl (6-9.5); Monocyte (Absolute #) 0.53 (0.0-1.3); Monocytes % 6.6 % (0.0-12.0); Platelet Count 153 K/mm3 (150-450); Red Cell Distribution Width 17.9 % (11.5-14.0)
[2019-06-22 09:49] LABS: Group A Strep NEGATIVE (NEGATIVE); INFLUENZA A NEGATIVE (NEGATIVE); INFLUENZA B NEGATIVE (NEGATIVE); INR 2.68 (0.8-3.0); PROTIME 30.9 SECONDS (8.83-12.87); RESPIRATORY SYNCTIAL VIRUS NEGATIVE (Negative)
[2019-06-22 09:52] LABS: Appearance CLEAR (CLEAR); Leukocyte Esterase TRACE (NEGATIVE); Nitrite NEGATIVE (NEGATIVE); Protein,Urine Dip TRACE (Negative)
[2019-06-22 09:53] LABS: Bacteria FEW /HPF (NEGATIVE); Bilirubin NEGATIVE (NEGATIVE); Epithelial Cells RARE /HPF (FEW); Glucose NEGATIVE (NEGATIVE); Ketones NEGATIVE (NEGATIVE); RBC 0-2 /HPF (0-2); Urobilinogen NORMAL mg/dL (0-1)
[2019-06-22 09:54] LABS: ALBUMIN 3.5 g/dL (3.5-5.0); ALKALINE PHOSPHATASE 65 U/L (38-126); ANION GAP 13.1 MEQ/L (5-15); BLOOD UREA NITROGEN 13 mg/dL (9-20); CHLORIDE 102 mmol/L (98-107); Calcium 8.6 mg/dL (8.4-10.2); Carbon Dioxide 29 mmol/L (22-30); Glucose 171 mg/dL (74-106); Potassium 4.3 mmol/L (3.5-5.1); SGOT/AST 31 U/L (17-59); SGPT/ALT 17 U/L (0-50); SODIUM 140 mmol/L (137-145); Total Protein 6.4 g/dL (6.3-8.2)
[2019-06-22] MEDS ORDERED: Zofran 4 MG/2 ML VIAL IV PRN (15:25)
[2019-06-22] MEDS ORDERED: TYLENOL 325 MG PO PRN ×2 (15:25→17:15)
[2019-06-22] MEDS: ROCEPHIN 2 Gm-D5w 50ML BAG** 2 G/50 ML IVPB IV SCH (16:56)
[2019-06-22] MEDS: Zithromax 500 MG/ 250 ML NaCl Premix 500 MG/250 ML IVPB IV SCH (16:56)
[2019-06-22] MEDS ORDERED: Ventolin Hfa MDI IH PRN (17:02)
[2019-06-22] MEDS ORDERED: Miralax Powder 17GM PACKET PO PRN (17:02)
[2019-06-22] MEDS ORDERED: PROVENTIL COMMON CANISTER IH PRN (17:17)
[2019-06-22] MEDS ORDERED: MEDICATION INTERVENTION MC SCH (17:30)
[2019-06-22] MEDS ORDERED: MEDICATION INTERVENTION PO SCH (17:30)
[2019-06-22] MEDS: solu-MEDROL 125 MG IV SCH ×2 (17:50→23:35)
[2019-06-22] MEDS: CLARITIN 10 MG PO SCH (17:51)
[2019-06-22] MEDS: Vitamin C 500 MG PO SCH (17:51)
[2019-06-22] MEDS: Sodium Chloride 0.9% 1000 ML 1,000 ML IV SCH (17:51)
[2019-06-22] MEDS: Coumadin 2 MG PO SCH (17:51)
[2019-06-22] MEDS: THERAGRAN MULTIVITAMIN PO SCH (17:51)
[2019-06-22] MEDS: Flomax 0.4 MG PO SCH (17:51)
[2019-06-22] MEDS: VITAMIN D PO SCH (17:51)
[2019-06-22] MEDS: Coumadin 5 MG PO SCH (17:51)
[2019-06-22] MEDS: MARY'S MOUTHWASH PO SCH ×2 (18:06→23:37)
[2019-06-22] MEDS: DUONEB 0.5-3 MG/3 ml Neb IH SCH (19:45)
[2019-06-22] MEDS: Advair Hfa 115/21 Common canister IH SCH (19:48)
[2019-06-22] MEDS: Spiriva 18 Mcg/Cap Inhaler IH SCH (19:49)
[2019-06-22] MEDS: Lantus Insulin SQ SCH (21:35)
[2019-06-22] MEDS: ZOLOFT 50 MG TABLET PO SCH (21:36)
[2019-06-22] MEDS: Cymbalta 30 MG Capsule PO SCH (21:36)
[2019-06-22] MEDS: MYSOLINE 50MG PO SCH (21:36)
[2019-06-22] MEDS: NEURONTIN 300 MG PO SCH (21:36)
[2019-06-22] MEDS: Calcium 500MG W/Vit D Tablet PO SCH (21:36)
[2019-06-22] MEDS: ZOCOR 20MG PO SCH (21:36)
[2019-06-22] MEDS: Protonix 40MG Tablet PO SCH (21:36)
[2019-06-22] MEDS ORDERED: NON-FORMULARY ITEM (Divalproex Sodium [Depakote] 1,000 MG) PO SCH (22:00)
[2019-06-22] MEDS ORDERED: NON-FORMULARY ITEM (Duloxetine Hcl [Cymbalta] 60 MG) PO SCH (22:00)
[2019-06-22] MEDS ORDERED: [UNRECOGNIZED DRUG - OTHER] PO SCH (22:00)
[2019-06-22] MEDS ORDERED: ADVAIR 250-50 DISKUS 14 DOSE IH SCH (22:00)
[2019-06-22] MEDS ORDERED: NON-FORMULARY ITEM (Sertraline Hcl [Sertraline Hcl] 100 MG) PO SCH (22:00)
[2019-06-22] MEDS ORDERED: NON-FORMULARY ITEM (Gabapentin [Gabapentin] 600 MG) PO SCH (22:00)
[2019-06-22] MEDS ORDERED: NON-FORMULARY ITEM (Omeprazole [Omeprazole] 40 MG) PO SCH (22:00)
[2019-06-22] MEDS ORDERED: CALCIUM PHOSPHATE TRIB PO SCH (22:00)
[2019-06-22] MEDS ORDERED: VIT D3 PO SCH (22:00)
[2019-06-22] MEDS: NovoLOG Insulin SQ PRN (22:31)
[2019-06-23] MEDS: DUONEB 0.5-3 MG/3 ml Neb IH SCH ×2 (01:24→05:45)
[2019-06-23] MEDS: Sodium Chloride 0.9% 1000 ML 1,000 ML IV SCH (04:16)
[2019-06-23 04:43] LABS: Hematocrit 29.3 % (42-50); Hemoglobin 8.7 gm/dl (12.5-18.0); Mean Cell Volume 90.4 fl (78-100); Mean Corpuscular Hemoglobin 26.9 pg (26-32); Mean Corpuscular Hgb Concent. 29.7 g/dl (32-36); Mean Platelet Volume 10.1 fl (6-9.5); Platelet Count 154 K/mm3 (150-450); Red Blood Count 3.24 M/mm3 (4.1-5.6); Red Cell Distribution Width 17.8 % (11.5-14.0); White Blood Count 10.8 K/mm3 (4.0-10.5)
[2019-06-23 04:50] LABS: INR 2.42 (0.8-3.0); PROTIME 27.9 SECONDS (8.83-12.87)
[2019-06-23 04:55] LABS: ANION GAP 13.2 MEQ/L (5-15); BLOOD UREA NITROGEN 12 mg/dL (9-20); CHLORIDE 102 mmol/L (98-107); Calcium 8.8 mg/dL (8.4-10.2); Carbon Dioxide 29 mmol/L (22-30); Creatinine 1 0.51 mg/dL (0.66-1.25); Glucose 283 mg/dL (74-106); Potassium 4.1 mmol/L (3.5-5.1); SODIUM 140 mmol/L (137-145)
[2019-06-23] MEDS: MARY'S MOUTHWASH PO SCH ×4 (05:35→23:09)
[2019-06-23] MEDS: solu-MEDROL 125 MG IV SCH ×4 (05:35→23:11)
[2019-06-23 05:55] LABS: ANISOCYTOSIS 1+; BAND 5 % (0.0-2.0); Lymphocytes 25 % (24-44); Monocyte 1 % (0.0-12.0); Neutrophils 69 % (36.-66.); Poikilocytosis 1+; Polychromasia 1+; Total Cells Counted 100
[2019-06-23 05:56] LABS: Platelet Estimate NORMAL (NORMAL)
[2019-06-23] MEDS: Spiriva 18 Mcg/Cap Inhaler IH SCH (07:40)
[2019-06-23] MEDS: Advair Hfa 115/21 Common canister IH SCH ×2 (07:40→17:34)
--- NOTE | 2019-06-23 07:49 | HP ---
HISTORY OF PRESENT ILLNESS: This is a 64 year-old patient of mine who presented to the emergency department this morning. His sister who is his guardian/caregiver is at the bedside. She reports that he was not feeling well on Friday and was brought to the emergency room and given some fluids. He continued to not feel very well over the weekend although Friday she reports went on a couple of car rides without any problems and this morning she found him kneeling beside his bed and was not very responsive and very weak. They had to call the ambulance to bring him to the emergency department. The patient reports he does not really remember what happened this morning. He has had some cough productive of some sputum, some rhinorrhea. She reports he has been taking fluids well. He does feel better than when he came into the emergency room as he is not as lethargic or confused but still feels weak. He reports some pain with urination. No blood in his urine. No nausea or vomiting. REVIEW OF SYSTEMS: His back has been a little bit sore. He has a history of fairly recent back surgery. He has had some constipation which MiraLAX helps with. Otherwise review of systems as noted in the history of present illness. MEDICATIONS: Please see the home medication reconciliation form which I have reviewed. ALLERGIES: ADHESIVE TAPE. BEE VENOM. PAST MEDICAL HISTORY: Osteoarthritis. Asthma. Chronic obstructive pulmonary disease which he sees Dr. Tyler Harris for. Diabetes mellitus type [address] Rodriguez for. Seizure disorder. Diabetic neuropathy. Dysphagia. Seizure disorder which he sees Dr. Herrera for. Urinary continence for which he sees Dr. Fung for. Foot drop. He wears braces on his feet bilaterally. He also has a power chair. Right lower deep venous thrombosis April 2019 after his back surgery. PAST SURGICAL HISTORY: Remote history of lump removed from his buttock complicated by cellulitis. Back surgery 12/24/2018 and April 2019 both in [place]. SOCIAL HISTORY: He states his sister, Sharon, is his primary caregiver. Former smoker. He smoked in 1987. FAMILY HISTORY: Noncontributory. PHYSICAL EXAMINATION: VITAL SIGNS: Temperature current 97.6F, temperature max 98.6F, heart rate 80, respiratory rate 20, blood pressure 112/55, weight 87.4 kg. Oxygen saturation 95% on 5 liters nasal cannula. GENERAL: The patient is a lying in bed. He is alert and oriented x3 in no acute distress although slightly tachypneic with very mild costal retractions. CVS: He has a regular rate and rhythm. No murmurs, gallops or rubs. CHEST: He has expiratory wheezes throughout with equal breath sounds. ABDOMEN: Soft, nontender, nondistended with hypoactive bowel sounds. EXTREMITIES: No clubbing, cyanosis or edema. SKIN: Warm, dry and intact. LABORATORY DATA AND TESTS: Hemoglobin 9.6. Glucose 171. UA 3 to 5 white blood cells, mono screen was positive. Influenza A and B, respiratory syncytial virus and Strep were all negative. Chest x-ray was read as mild bibasilar infiltrates/atelectasis and tiny right effusion. Heart is not enlarged. Please see the radiologist report for the full dictation. ASSESSMENT AND PLAN: 1) BILATERAL PNEUMONIA: He has been started on azithromycin and ceftriaxone after receiving a dose of Meropenem in the emergency department. 2) SEPSIS: The emergency room doctor noted that he met criteria for sepsis in the emergency room and was given 3 liters of fluid there and has improved significantly since he was given a dose of Meropenem in the emergency room but that has been changed to ceftriaxone and azithromycin. 3) CHRONIC OBSTRUCTIVE PULMONARY DISEASE WITH EXACERBATION: He does have some wheezing throughout so I started Solu-Medrol as well as DuoNeb and RT has already been consulted. 4) DIABETES MELLITUS TYPE 2: Will continue with his home medicines and a low dose sliding scale. 5) HISTORY OF RIGHT DEEP VENOUS THROMBOSIS: His international normalized ratio is good at 2.6, will continue with his home dose of Coumadin and check international normalized ratio daily since he will be on steroids as well as antibiotics. 6) HISTORY OF SEIZURE DISORDER: Will continue him on his home medication. 7) DYSPHAGIA: He is supposed to have all of his liquids thickened. 8) CODE STATUS: I confirmed with the sister that if he would stop breathing or his heart would stop beating that they did not want any heroic measures and would like for him to be a No Code.
--- NOTE | 2019-06-23 08:48 | PCM.NOTE ---
Date and Time: 06/23/19 08 Subjective Assessment: Patient reports still some trouble breathing. He reports not getting much sleep last night. Denies any pain. - Review of Systems Constitutional: No Symptoms Respiratory: Cough, Short Of Breath Cardiac: No Symptoms Abdominal/Gastrointestinal: No Symptoms Genitourinary Symptoms: No Symptoms Musculoskeletal: No Symptoms Objective Exam General Appearance: no apparent distress Neurologic Exam: alert, cooperative, normal mood/affect Skin Exam: normal color, warm, dry, No rash Respiratory Exam: other (scattered wheezes throughout, louder wheezing when he takes a deep breath in and out; no crackles, no retractions, no tachypnea) Cardiovascular Exam: regular rate/rhythm, normal heart sounds, No murmur, No friction rub, No gallop Gastrointestinal/Abdomen Exam: soft, normal bowel sounds, No tenderness, No distention, No mass Extremity Exam: other (no c/c/e) OBJECTIVE DATA Vital Signs: Vital Signs - 24 hr Temp Pulse Resp BP Pulse Ox 06/23/19 08:00 98.7 F 76 20 135/62 91 L 06/23/19 05:58 69 20 93 L 06/23/19 04:00 98.1 F 78 21 130/60 92 L 06/23/19 02:24 76 20 96 06/23/19 00:06 98.2 F 79 20 133/64 93 L 06/22/19 21:08 88 20 95 06/22/19 20:00 98.0 F 94 H 20 116/56 94 L 06/22/19 16:14 80 20 95 06/22/19 16:00 97.6 F 80 20 112/55 95 06/22/19 15:28 97.6 F 84 16 112/55 94 L 06/22/19 15:01 82 18 103/51 95 06/22/19 13:52 80 14 118/59 97 06/22/19 13:11 98.6 F 87 18 121/58 96 06/22/19 12:00 92 H 14 119/61 94 L 06/22/19 11:43 99 H 18 128/60 98 06/22/19 10:36 100.3 F 105 H 21 112/62 95 06/22/19 09:45 101.3 F 110 H 24 114/53 97 06/22/19 09:02 92 L Oxygen-Last 24 hours O2 Percentage 5 Liters = 40% O2 Percentage 5 Liters = 40% O2 Percentage 5 Liters = 40% O2 Percentage 5 Liters = 40% O2 Percentage 5 Liters = 40% O2 Percentage 2 Liters = 28% O2 Percentage 2 Liters = 28% O2 Percentage 5 Liters = 40% O2 Percentage 5 Liters = 40% Pain Assessment - Last Documented Pain Intensity 1 Pain Scale Used 0-10 Pain Scale Intake and Output: Intake & Output 06/21/19 06/22/19 06/23/19 06/24/19 06:59 06:59 06:59 06:59 Intake Total 2527 Output Total 2727 Balance -200 Weight 78.5 kg Lab Results: Accuchecks Accucheck Value: 322 Lab Results-Last 24 Hours 06/22/19 06/22/19 06/22/19 Range/Units 09:15 09:15 09:15 WBC 8.0 (4.0-10.5) K/mm3 RBC 3.50 L (4.1-5.6) M/mm3 Hgb 9.6 L (12.5-18.0) gm/dl Hct 31.5 L (42-50) % MCV 90.0 (78-100) fl MCH 27.4 (26-32) pg MCHC 30.5 L (32-36) g/dl RDW 17.9 H (11.5-14.0) % Plt Count 153 (150-450) K/mm3 MPV 10.7 H (6-9.5) fl Gran % 66.0 (36.0-66.0) % Eos # (Auto) 0.03 (0-0.5) Absolute Lymphs (auto) 2.17 (1.0-4.6) Absolute Monos (auto) 0.53 (0.0-1.3) Lymphocytes % 27.0 (24.0-44.0) % Monocytes % 6.6 (0.0-12.0) % Eosinophils % 0.4 (0.00-5.0) % Basophils % 0.0 (0.0-0.4) % Absolute Granulocytes 5.31 (1.4-6.9) Segmented Neutrophils (36.-66.) % Band Neutrophils (0.0-2.0) % Lymphocytes (Manual) (24-44) % Monocytes (Manual) (0.0-12.0) % Basophils # 0 (0-0.4) Platelet Estimate (NORMAL) RBC Morphology Polychromasia Poikilocytosis Anisocytosis PT (8.83-12.87) SECONDS INR (0.8-3.0) Sodium 140 (137-145) mmol/L Potassium 4.3 (3.5-5.1) mmol/L Chloride 102 (98-107) mmol/L Carbon Dioxide 29 (22-30) mmol/L Anion Gap 13.1 (5-15) MEQ/L BUN 13 (9-20) mg/dL Creatinine 0.60 L (0.66-1.25) mg/dL Estimated GFR > 60.0 ML/MIN Glucose 171 H (74-106) mg/dL Lactic Acid (0.4-2.0) Calcium 8.6 (8.4-10.2) mg/dL Total Bilirubin 0.20 (0.2-1.3) mg/dL AST 31 (17-59) U/L ALT 17 (0-50) U/L Alkaline Phosphatase 65 (38-126) U/L Serum Total Protein 6.4 (6.3-8.2) g/dL Albumin 3.5 (3.5-5.0) g/dL Urine Color (YELLOW) Urine Appearance (CLEAR) Urine pH (5-6) Ur Specific [place] (1.005-1.025) Urine Protein (Negative) Urine Ketones (NEGATIVE) Urine Blood (0-5) Perez/ul Urine Nitrite (NEGATIVE) Urine Bilirubin (NEGATIVE) Urine Urobilinogen (0-1) mg/dL Ur Leukocyte Esterase (NEGATIVE) Urine WBC (Auto) (0-5) /HPF Urine RBC (Auto) (0-2) /HPF U Epithel Cells (Auto) (FEW) /HPF Urine Bacteria (Auto) (NEGATIVE) /HPF Urine Culture Reflexed (NO) Urine Glucose (NEGATIVE) mg/dL Valproic Acid (50-100) ug/mL Monoscreen POSITIVE (Negative) Influenza Type A Ag (NEGATIVE) Influenza Type B Ag (NEGATIVE) RSV (PCR) (Negative) Group A Strep Antibody (NEGATIVE) 06/22/19 06/22/19 06/22/19 Range/Units 09:15 09:15 09:15 WBC (4.0-10.5) K/mm3 RBC (4.1-5.6) M/mm3 Hgb (12.5-18.0) gm/dl Hct (42-50) % MCV (78-100) fl MCH (26-32) pg MCHC (32-36) g/dl RDW (11.5-14.0) % Plt Count (150-450) K/mm3 MPV (6-9.5) fl Gran % (36.0-66.0) % Eos # (Auto) (0-0.5) Absolute Lymphs (auto) (1.0-4.6) Absolute Monos (auto) (0.0-1.3) Lymphocytes % (24.0-44.0) % Monocytes % (0.0-12.0) % Eosinophils % (0.00-5.0) % Basophils % (0.0-0.4) % Absolute Granulocytes (1.4-6.9) Segmented Neutrophils (36.-66.) % Band Neutrophils (0.0-2.0) % Lymphocytes (Manual) (24-44) % Monocytes (Manual) (0.0-12.0) % Basophils # (0-0.4) Platelet Estimate (NORMAL) RBC Morphology Polychromasia Poikilocytosis Anisocytosis PT (8.83-12.87) SECONDS INR (0.8-3.0) Sodium (137-145) mmol/L Potassium (3.5-5.1) mmol/L Chloride (98-107) mmol/L Carbon Dioxide (22-30) mmol/L Anion Gap (5-15) MEQ/L BUN (9-20) mg/dL Creatinine (0.66-1.25) mg/dL Estimated GFR ML/MIN Glucose (74-106) mg/dL Lactic Acid (0.4-2.0) Calcium (8.4-10.2) mg/dL Total Bilirubin (0.2-1.3) mg/dL AST (17-59) U/L ALT (0-50) U/L Alkaline Phosphatase (38-126) U/L Serum Total Protein (6.3-8.2) g/dL Albumin (3.5-5.0) g/dL Urine Color YELLOW (YELLOW) Urine Appearance CLEAR (CLEAR) Urine pH 6.0 (5-6) Ur Specific [place] 1.010 (1.005-1.025) Urine Protein TRACE (Negative) Urine Ketones NEGATIVE (NEGATIVE) Urine Blood 5-10 (0-5) Perez/ul Urine Nitrite NEGATIVE (NEGATIVE) Urine Bilirubin NEGATIVE (NEGATIVE) Urine Urobilinogen NORMAL (0-1) mg/dL Ur Leukocyte Esterase TRACE (NEGATIVE) Urine WBC (Auto) 3-5 (0-5) /HPF Urine RBC (Auto) 0-2 (0-2) /HPF U Epithel Cells (Auto) RARE (FEW) /HPF Urine Bacteria (Auto) FEW (NEGATIVE) /HPF Urine Culture Reflexed ORDERED SEPARATELY (NO) Urine Glucose NEGATIVE (NEGATIVE) mg/dL Valproic Acid 55.9 (50-100) ug/mL Monoscreen (Negative) Influenza Type A Ag NEGATIVE (NEGATIVE) Influenza Type B Ag NEGATIVE (NEGATIVE) RSV (PCR) NEGATIVE (Negative) Group A Strep Antibody NEGATIVE (NEGATIVE) 06/22/19 06/22/19 06/23/19 Range/Units 09:15 09:20 04:39 WBC 10.8 H (4.0-10.5) K/mm3 RBC 3.24 L (4.1-5.6) M/mm3 Hgb 8.7 L (12.5-18.0) gm/dl Hct 29.3 L (42-50) % MCV 90.4 (78-100) fl MCH 26.9 (26-32) pg MCHC 29.7 L (32-36) g/dl RDW 17.8 H (11.5-14.0) % Plt Count 154 (150-450) K/mm3 MPV 10.1 H (6-9.5) fl Gran % (36.0-66.0) % Eos # (Auto) (0-0.5) Absolute Lymphs (auto) (1.0-4.6) Absolute Monos (auto) (0.0-1.3) Lymphocytes % (24.0-44.0) % Monocytes % (0.0-12.0) % Eosinophils % (0.00-5.0) % Basophils % (0.0-0.4) % Absolute Granulocytes (1.4-6.9) Segmented Neutrophils 69 H (36.-66.) % Band Neutrophils 5 H (0.0-2.0) % Lymphocytes (Manual) 25 (24-44) % Monocytes (Manual) 1 (0.0-12.0) % Basophils # (0-0.4) Platelet Estimate NORMAL (NORMAL) RBC Morphology ABNORMAL Polychromasia 1+ Poikilocytosis 1+ Anisocytosis 1+ PT 30.9 H (8.83-12.87) SECONDS INR 2.68 (0.8-3.0) Sodium (137-145) mmol/L Potassium (3.5-5.1) mmol/L Chloride (98-107) mmol/L Carbon Dioxide (22-30) mmol/L Anion Gap (5-15) MEQ/L BUN (9-20) mg/dL Creatinine (0.66-1.25) mg/dL Estimated GFR ML/MIN Glucose (74-106) mg/dL Lactic Acid 1.3 (0.4-2.0) Calcium (8.4-10.2) mg/dL Total Bilirubin (0.2-1.3) mg/dL AST (17-59) U/L ALT (0-50) U/L Alkaline Phosphatase (38-126) U/L Serum Total Protein (6.3-8.2) g/dL Albumin (3.5-5.0) g/dL Urine Color (YELLOW) Urine Appearance (CLEAR) Urine pH (5-6) Ur Specific [place] (1.005-1.025) Urine Protein (Negative) Urine Ketones (NEGATIVE) Urine Blood (0-5) Perez/ul Urine Nitrite (NEGATIVE) Urine Bilirubin (NEGATIVE) Urine Urobilinogen (0-1) mg/dL Ur Leukocyte Esterase (NEGATIVE) Urine WBC (Auto) (0-5) /HPF Urine RBC (Auto) (0-2) /HPF U Epithel Cells (Auto) (FEW) /HPF Urine Bacteria (Auto) (NEGATIVE) /HPF Urine Culture Reflexed (NO) Urine Glucose (NEGATIVE) mg/dL Valproic Acid (50-100) ug/mL Monoscreen (Negative) Influenza Type A Ag (NEGATIVE) Influenza Type B Ag (NEGATIVE) RSV (PCR) (Negative) Group A Strep Antibody (NEGATIVE) 06/23/19 06/23/19 Range/Units 04:39 04:39 WBC (4.0-10.5) K/mm3 RBC (4.1-5.6) M/mm3 Hgb (12.5-18.0) gm/dl Hct (42-50) % MCV (78-100) fl MCH (26-32) pg MCHC (32-36) g/dl RDW (11.5-14.0) % Plt Count (150-450) K/mm3 MPV (6-9.5) fl Gran % (36.0-66.0) % Eos # (Auto) (0-0.5) Absolute Lymphs (auto) (1.0-4.6) Absolute Monos (auto) (0.0-1.3) Lymphocytes % (24.0-44.0) % Monocytes % (0.0-12.0) % Eosinophils % (0.00-5.0) % Basophils % (0.0-0.4) % Absolute Granulocytes (1.4-6.9) Segmented Neutrophils (36.-66.) % Band Neutrophils (0.0-2.0) % Lymphocytes (Manual) (24-44) % Monocytes (Manual) (0.0-12.0) % Basophils # (0-0.4) Platelet Estimate (NORMAL) RBC Morphology Polychromasia Poikilocytosis Anisocytosis PT 27.9 H (8.83-12.87) SECONDS INR 2.42 (0.8-3.0) Sodium 140 (137-145) mmol/L Potassium 4.1 (3.5-5.1) mmol/L Chloride 102 (98-107) mmol/L Carbon Dioxide 29 (22-30) mmol/L Anion Gap 13.2 (5-15) MEQ/L BUN 12 (9-20) mg/dL Creatinine 0.51 L (0.66-1.25) mg/dL Estimated GFR > 60.0 ML/MIN Glucose 283 H (74-106) mg/dL Lactic Acid (0.4-2.0) Calcium 8.8 (8.4-10.2) mg/dL Total Bilirubin (0.2-1.3) mg/dL AST (17-59) U/L ALT (0-50) U/L Alkaline Phosphatase (38-126) U/L Serum Total Protein (6.3-8.2) g/dL Albumin (3.5-5.0) g/dL Urine Color (YELLOW) Urine Appearance (CLEAR) Urine pH (5-6) Ur Specific [place] (1.005-1.025) Urine Protein (Negative) Urine Ketones (NEGATIVE) Urine Blood (0-5) Perez/ul Urine Nitrite (NEGATIVE) Urine Bilirubin (NEGATIVE) Urine Urobilinogen (0-1) mg/dL Ur Leukocyte Esterase (NEGATIVE) Urine WBC (Auto) (0-5) /HPF Urine RBC (Auto) (0-2) /HPF U Epithel Cells (Auto) (FEW) /HPF Urine Bacteria (Auto) (NEGATIVE) /HPF Urine Culture Reflexed (NO) Urine Glucose (NEGATIVE) mg/dL Valproic Acid (50-100) ug/mL Monoscreen (Negative) Influenza Type A Ag (NEGATIVE) Influenza Type B Ag (NEGATIVE) RSV (PCR) (Negative) Group A Strep Antibody (NEGATIVE) Radiology Exams: Radiology Procedures Category Date Time Status CHEST 1 VIEW (PORTABLE) Stat Exams 06/22/19 08:56 Completed Assessment/Plan (1) Bilateral pneumonia Current Visit: Yes Status: Acute Assessment & Plan: Continue current IV antibiotics; sputum culture ordered; Dr. Rickey Harris ( patient's coordinator of online programs) consulted Code(s): J18.9 - PNEUMONIA, UNSPECIFIED ORGANISM (2) Sepsis Current Visit: Yes Status: Acute Assessment & Plan: Resolving with treatment. patient much improved from ER. Continue IV fluids. (3) COPD with exacerbation Current Visit: Yes Status: Acute Assessment & Plan: Continue IV solumedrol and IV antibiotics, duonebs q 6 hours and other home inhalers ordered. Code(s): J44.1 - CHRONIC OBSTRUCTIVE PULMONARY DISEASE W (ACUTE) EXACERBATION (4) Diabetes type 2, uncontrolled Current Visit: Yes Status: Acute Assessment & Plan: Continue low dose sliding scale and home medication; sees Dr. Rodriguez as outpatient. Code(s): E11.65 - TYPE 2 DIABETES MELLITUS WITH HYPERGLYCEMIA (5) History of DVT (deep vein thrombosis) Current Visit: Yes Status: Acute Assessment & Plan: Continue coumadin and checking daily INR. Code(s): Z86.718 - PERSONAL HISTORY OF OTHER VENOUS THROMBOSIS AND EMBOLISM (6) Seizure disorder Current Visit: No Status: Chronic Assessment & Plan: Continue home medication. stable. Code(s): G40.909 - EPILEPSY, UNSP, NOT INTRACTABLE, WITHOUT STATUS EPILEPTICUS (7) Iron deficiency anemia Current Visit: Yes Status: Acute Assessment & Plan: He has been anemic since his recent back surgery in April. Hgb has raised from 7 to current level. Continue iron. Code(s): D50.9 - IRON DEFICIENCY ANEMIA, UNSPECIFIED (8) Dysphagia Current Visit: Yes Status: Acute Assessment & Plan: Continue to thicken drinks. Code(s): R13.10 - DYSPHAGIA, UNSPECIFIED
[2019-06-23] MEDS: NEURONTIN 300 MG PO SCH ×3 (09:08→21:02)
[2019-06-23] MEDS: Cymbalta 30 MG Capsule PO SCH ×2 (09:08→21:02)
[2019-06-23] MEDS: MYSOLINE 50MG PO SCH ×3 (09:08→21:02)
[2019-06-23] MEDS: Zithromax 500 MG/ 250 ML NaCl Premix 500 MG/250 ML IVPB IV SCH (09:08)
[2019-06-23] MEDS: Vitamin C 500 MG PO SCH (09:09)
[2019-06-23] MEDS: VITAMIN D PO SCH (09:09)
[2019-06-23] MEDS: CLARITIN 10 MG PO SCH (09:09)
[2019-06-23] MEDS: THERAGRAN MULTIVITAMIN PO SCH (09:09)
[2019-06-23] MEDS: FEOSOL 325 MG PO SCH (09:09)
[2019-06-23] MEDS: Protonix 40MG Tablet PO SCH ×2 (09:09→21:03)
[2019-06-23] MEDS: ROCEPHIN 2 Gm-D5w 50ML BAG** 2 G/50 ML IVPB IV SCH (09:09)
[2019-06-23] MEDS: Calcium 500MG W/Vit D Tablet PO SCH ×3 (09:09→21:02)
[2019-06-23] MEDS: NovoLOG Insulin SQ PRN ×4 (09:10→21:04)
[2019-06-23] MEDS ORDERED: NON-FORMULARY ITEM (Multivitamin [Multivitamins] 1 EACH) PO SCH (10:00)
[2019-06-23] MEDS ORDERED: ASCORBIC ACID 500 MG PO SCH (10:00)
[2019-06-23] MEDS ORDERED: NON-FORMULARY ITEM (Mirabegron [Myrbetriq] 50 MG) PO SCH (10:00)
[2019-06-23] MEDS ORDERED: NON-FORMULARY ITEM (Cholecalciferol (Vitamin D3) [Vitamin D3] 1,000 UNIT) PO SCH (10:00)
[2019-06-23] MEDS: PROVENTIL 2.5 MG/3 ML NEB IH SCH ×4 (10:36→22:35)
--- NOTE | 2019-06-23 14:07 | CONS ---
CONSULT DATE: 06/23/2019 HISTORY: Blue Bell is a 64 year-old male with history of chronic obstructive pulmonary disease, well known to me, who has been admitted with complaints of shortness of breath. The patient was apparently seen in the emergency room with high grade fever and was discharged home on Friday. He started acting different with increasing shortness of breath leading to an emergency room visit. He has been hospitalized. He did have temperature of 103F on admission which has now resolved. The patient does have cough which is minimally productive. He also has history of chronic obstructive pulmonary disease and is currently wheezing. He is being treated with antibiotics along with steroids and bronchodilators. At the time of my evaluation he is sitting comfortably in chair and voices no new complaints. PAST MEDICAL HISTORY: Positive for history of chronic obstructive pulmonary disease, hypertension, diabetes mellitus and multiple other problems. PAST SURGICAL HISTORY: No recent surgery. PERSONAL AND SOCIAL HISTORY: The patient lives with his sister. MEDICATIONS: Home and current medications are reviewed. ALLERGIES: ALLERGIES NOTED. PHYSICAL EXAMINATION: This is a middle aged male who appears comfortable, able to speak without difficulty. Vital signs noted. HEENT: Normocephalic. Oral exam is limited. NECK: Supple. CVS: First and second heart sounds are normal, regular, rhythmic. RESPIRATORY: Shows diminished breath sounds, rhonchi are heard. ABDOMEN: Obese. EXTREMITIES: No edema is present. LABORATORY DATA AND TESTS: White count 10.8, hemoglobin 8.7, hematocrit 29, PLT 154,000. Sodium 140, potassium 4.1, chloride 102, bicarb 29, glucose 283, BUN 12, creatinine 0.5. International normalized ratio 2.4. Mil[place] screen is positive. Valproic acid 55.9. Chest x-ray without infiltrates. ASSESSMENT: This is a 64 year old male admitted with: 1) Chronic obstructive pulmonary disease with acute exacerbation. 2) Acute bronchitis. 3) Hypoxemia. 4) Diabetes mellitus. 5) Comorbidities listed above. RECOMMENDATIONS: The patient is improving from pulmonary standpoint. Continue antibiotics, continue steroids with taper, continue bronchodilators. Treatment with bronchodilators have been increased to every four hours while awake. Advised to follow up with me in outpatient setting. I will be available if any concerns or questions remain unanswered. Discussed with patient's sister at bedside.
[2019-06-23] MEDS: Coumadin 5 MG PO SCH (17:12)
[2019-06-23] MEDS: Coumadin 2 MG PO SCH (17:12)
[2019-06-23] MEDS: Flomax 0.4 MG PO SCH (17:12)
[2019-06-23] MEDS: ZOLOFT 50 MG TABLET PO SCH (21:02)
[2019-06-23] MEDS: ZOCOR 20MG PO SCH (21:03)
[2019-06-23] MEDS: Lantus Insulin SQ SCH (21:03)
[2019-06-24] MEDS: PROVENTIL 2.5 MG/3 ML NEB IH SCH ×5 (04:33→19:45)
[2019-06-24] MEDS: Sodium Chloride 0.9% 1000 ML 1,000 ML IV SCH ×2 (04:41→17:51)
[2019-06-24 04:57] LABS: Hematocrit 29.9 % (42-50); Hemoglobin 8.8 gm/dl (12.5-18.0); Mean Cell Volume 90.3 fl (78-100); Mean Corpuscular Hemoglobin 26.6 pg (26-32); Mean Corpuscular Hgb Concent. 29.4 g/dl (32-36); Mean Platelet Volume 10.6 fl (6-9.5); PROTIME 34.7 SECONDS (8.83-12.87); Platelet Count 188 K/mm3 (150-450); Red Blood Count 3.31 M/mm3 (4.1-5.6); Red Cell Distribution Width 17.7 % (11.5-14.0); White Blood Count 11.6 K/mm3 (4.0-10.5)
[2019-06-24 05:04] LABS: ANION GAP 13.3 MEQ/L (5-15); BLOOD UREA NITROGEN 14 mg/dL (9-20); CHLORIDE 101 mmol/L (98-107); Calcium 9.6 mg/dL (8.4-10.2); Carbon Dioxide 29 mmol/L (22-30); Creatinine 1 0.51 mg/dL (0.66-1.25); Glucose 297 mg/dL (74-106); Potassium 4.2 mmol/L (3.5-5.1); SODIUM 140 mmol/L (137-145)
[2019-06-24 05:13] LABS: Lymphocytes 43 % (24-44); Monocyte 1 % (0.0-12.0); Neutrophils 56 % (36.-66.); Platelet Estimate NORMAL (NORMAL); Total Cells Counted 100
[2019-06-24 05:14] LABS: Hypochromia RARE; Toxic Granulation RARE
[2019-06-24] MEDS: MARY'S MOUTHWASH PO SCH ×4 (05:55→23:57)
[2019-06-24] MEDS: solu-MEDROL 125 MG IV SCH ×4 (05:55→23:57)
[2019-06-24] MEDS: Spiriva 18 Mcg/Cap Inhaler IH SCH (07:57)
[2019-06-24] MEDS: Advair Hfa 115/21 Common canister IH SCH ×2 (07:57→19:45)
[2019-06-24] MEDS: NovoLOG Insulin SQ PRN ×4 (09:06→22:03)
[2019-06-24] MEDS: Cymbalta 30 MG Capsule PO SCH ×2 (09:07→22:02)
[2019-06-24] MEDS: Vitamin C 500 MG PO SCH (09:07)
[2019-06-24] MEDS: Protonix 40MG Tablet PO SCH ×2 (09:07→22:02)
[2019-06-24] MEDS: Calcium 500MG W/Vit D Tablet PO SCH ×3 (09:07→22:02)
[2019-06-24] MEDS: CLARITIN 10 MG PO SCH (09:07)
[2019-06-24] MEDS: THERAGRAN MULTIVITAMIN PO SCH (09:07)
[2019-06-24] MEDS: NEURONTIN 300 MG PO SCH ×3 (09:07→22:02)
[2019-06-24] MEDS: MYSOLINE 50MG PO SCH ×3 (09:07→22:02)
[2019-06-24] MEDS: VITAMIN D PO SCH (09:07)
[2019-06-24] MEDS: ROCEPHIN 2 Gm-D5w 50ML BAG** 2 G/50 ML IVPB IV SCH (09:12)
[2019-06-24] MEDS: Zithromax 500 MG/ 250 ML NaCl Premix 500 MG/250 ML IVPB IV SCH (09:13)
--- NOTE | 2019-06-24 09:16 | PCM.NOTE ---
Date and Time: 06/24/19913 Subjective Assessment: Pt. feeling a little better today but still very congested. - Review of Systems Constitutional: No Fever, No Chills Respiratory: Cough, Short Of Breath Objective Exam General Appearance: no apparent distress, alert Skin Exam: normal color, warm, dry Neck Exam: normal inspection, non-tender, supple, full range of motion Respiratory Exam: diminished breath sounds, wheezing Cardiovascular Exam: regular rate/rhythm, normal heart sounds OBJECTIVE DATA Vital Signs: Vital Signs - 24 hr Temp Pulse Resp BP Pulse Ox 06/24/19 07:33 97.8 F 20 95 06/24/19 05:00 67 20 92 L 06/24/19 04:15 98.4 F 75 21 153/66 89 L 06/23/19 23:48 98.4 F 72 20 130/62 94 L 06/23/19 22:37 72 20 94 L 06/23/19 21:59 95 06/23/19 20:01 98.4 F 76 20 130/71 94 L 06/23/19 17:36 69 18 96 06/23/19 15:38 94 L 06/23/19 14:42 82 20 94 L 06/23/19 12:00 99.2 F 69 20 128/58 95 06/23/19 10:39 69 20 95 Oxygen-Last 24 hours O2 Percentage 2 Liters = 28% O2 Percentage 2 Liters = 28% O2 Percentage 2 Liters = 28% O2 Percentage 5 Liters = 40% Oxygen Flowrate (L/min)-RT 2 Pain Assessment - Last Documented Pain Intensity 0 Pain Scale Used 0-10 Pain Scale Intake and Output: Intake & Output 06/21/19 06/22/19 06/23/19 06/24/19 11:59 11:59 11:59 11:59 Intake Total 4087 6129 Output Total 3927 3600 Balance 160 2529 Weight 79.379 kg 78.5 kg 78.4 kg Lab Results: Accuchecks Date 06/23/19 Date 06/23/19 Time 17:27 Time 11:30 Accucheck Value: 305 Accucheck Value: 258 Accucheck Value: 362 Lab Results-Last 24 Hours 06/24/19 06/24/19 06/24/19 Range/Units 04:47 04:47 04:47 WBC 11.6 H (4.0-10.5) K/mm3 RBC 3.31 L (4.1-5.6) M/mm3 Hgb 8.8 L (12.5-18.0) gm/dl Hct 29.9 L (42-50) % MCV 90.3 (78-100) fl MCH 26.6 (26-32) pg MCHC 29.4 L (32-36) g/dl RDW 17.7 H (11.5-14.0) % Plt Count 188 (150-450) K/mm3 MPV 10.6 H (6-9.5) fl Segmented Neutrophils 56 (36.-66.) % Lymphocytes (Manual) 43 (24-44) % Monocytes (Manual) 1 (0.0-12.0) % Hypochromia RARE Toxic Granulation RARE Platelet Estimate NORMAL (NORMAL) RBC Morphology ABNORMAL PT 34.7 H (8.83-12.87) SECONDS INR 3.00 (0.8-3.0) Sodium 140 (137-145) mmol/L Potassium 4.2 (3.5-5.1) mmol/L Chloride 101 (98-107) mmol/L Carbon Dioxide 29 (22-30) mmol/L Anion Gap 13.3 (5-15) MEQ/L BUN 14 (9-20) mg/dL Creatinine 0.51 L (0.66-1.25) mg/dL Estimated GFR > 60.0 ML/MIN Glucose 297 H (74-106) mg/dL Calcium 9.6 (8.4-10.2) mg/dL Radiology Exams: Radiology Procedures Category Date Time Status CHEST 1 VIEW (PORTABLE) Stat Exams 06/22/19 08:56 Completed Assessment/Plan (1) Bilateral pneumonia Current Visit: Yes Status: Acute Assessment & Plan: Slowly improving with current regimen and will continue. Code(s): J18.9 - PNEUMONIA, UNSPECIFIED ORGANISM (2) COPD with exacerbation Current Visit: Yes Status: Acute Assessment & Plan: continue current plan Code(s): J44.1 - CHRONIC OBSTRUCTIVE PULMONARY DISEASE W (ACUTE) EXACERBATION
[2019-06-24] MEDS: Flomax 0.4 MG PO SCH (16:03)
[2019-06-24] MEDS: Coumadin 5 MG PO SCH (17:43)
[2019-06-24] MEDS: Coumadin 2 MG PO SCH (17:43)
[2019-06-24] MEDS: Lantus Insulin SQ SCH (22:03)
[2019-06-24] MEDS: ZOLOFT 50 MG TABLET PO SCH (22:03)
[2019-06-24] MEDS: ZOCOR 20MG PO SCH (22:03)
[2019-06-25] MEDS: PROVENTIL 2.5 MG/3 ML NEB IH SCH ×7 (00:01→23:27)
[2019-06-25] MEDS: Sodium Chloride 0.9% 1000 ML 1,000 ML IV SCH ×2 (03:37→17:26)
[2019-06-25 05:42] LABS: Hematocrit 31.2 % (42-50); Hemoglobin 9.3 gm/dl (12.5-18.0); Mean Cell Volume 88.9 fl (78-100); Mean Corpuscular Hemoglobin 26.5 pg (26-32); Mean Corpuscular Hgb Concent. 29.8 g/dl (32-36); Mean Platelet Volume 10.8 fl (6-9.5); Platelet Count 243 K/mm3 (150-450); Red Blood Count 3.51 M/mm3 (4.1-5.6); Red Cell Distribution Width 17.7 % (11.5-14.0); White Blood Count 15.1 K/mm3 (4.0-10.5)
[2019-06-25 06:06] LABS: INR 3.29 (0.8-3.0); PROTIME 38.1 SECONDS (8.83-12.87)
[2019-06-25 06:13] LABS: ANION GAP 13.8 MEQ/L (5-15); BLOOD UREA NITROGEN 13 mg/dL (9-20); CHLORIDE 99 mmol/L (98-107); Carbon Dioxide 31 mmol/L (22-30); Creatinine 1 0.56 mg/dL (0.66-1.25); Glucose 265 mg/dL (74-106); Potassium 3.9 mmol/L (3.5-5.1); SODIUM 140 mmol/L (137-145)
[2019-06-25] MEDS: MARY'S MOUTHWASH PO SCH ×3 (06:30→17:53)
[2019-06-25] MEDS: solu-MEDROL 125 MG IV SCH ×3 (06:30→22:52)
[2019-06-25 07:41] LABS: BAND 5 % (0.0-2.0); Lymphocytes 23 % (24-44); Monocyte 2 % (0.0-12.0); Neutrophils 70 % (36.-66.); Total Cells Counted 100
[2019-06-25 07:48] LABS: ANISOCYTOSIS 1+; Platelet Estimate NORMAL (NORMAL); Poikilocytosis 1+; Polychromasia 1+; Spherocyte 1+
[2019-06-25] MEDS: Spiriva 18 Mcg/Cap Inhaler IH SCH (08:00)
[2019-06-25] MEDS: Advair Hfa 115/21 Common canister IH SCH ×2 (08:01→20:09)
[2019-06-25] MEDS: Zithromax 500 MG/ 250 ML NaCl Premix 500 MG/250 ML IVPB IV SCH (09:27)
[2019-06-25] MEDS: ROCEPHIN 2 Gm-D5w 50ML BAG** 2 G/50 ML IVPB IV SCH (09:27)
[2019-06-25] MEDS: NovoLOG Insulin SQ PRN ×4 (09:29→22:52)
[2019-06-25] MEDS: THERAGRAN MULTIVITAMIN PO SCH (09:32)
[2019-06-25] MEDS: Cymbalta 30 MG Capsule PO SCH ×2 (09:32→22:49)
[2019-06-25] MEDS: Protonix 40MG Tablet PO SCH ×2 (09:32→22:50)
[2019-06-25] MEDS: MYSOLINE 50MG PO SCH ×3 (09:32→22:50)
[2019-06-25] MEDS: VITAMIN D PO SCH (09:32)
[2019-06-25] MEDS: CLARITIN 10 MG PO SCH (09:32)
[2019-06-25] MEDS: FEOSOL 325 MG PO SCH (09:33)
[2019-06-25] MEDS: NEURONTIN 300 MG PO SCH ×3 (09:33→22:49)
[2019-06-25] MEDS: Calcium 500MG W/Vit D Tablet PO SCH ×3 (09:33→22:48)
[2019-06-25] MEDS: Vitamin C 500 MG PO SCH (09:33)
--- NOTE | 2019-06-25 10:45 | PCM.NOTE ---
Date and Time: 06/25/19 1039 Subjective Assessment: Patient reports his breathing seems to be getting better. He is agreeable with staying for further treatment. His blood glucoses have been running high. Dr. Rickey Harris saw him Friday and agreed with current treatment. - Review of Systems Constitutional: No Symptoms Respiratory: Short Of Breath, Wheezing Cardiac: No Symptoms Abdominal/Gastrointestinal: No Symptoms Genitourinary Symptoms: No Symptoms Musculoskeletal: No Symptoms Skin: No Symptoms Objective Exam General Appearance: no apparent distress, other (wearing oxygen) Neurologic Exam: alert, cooperative Skin Exam: normal color, warm, dry Respiratory Exam: airway intact, other (scattered wheezes throughout, no tachypnea, no retractions), No lungs clear, No respiratory distress, No accessory muscle use, No crackles/rales Cardiovascular Exam: regular rate/rhythm, No murmur, No friction rub, No gallop Gastrointestinal/Abdomen Exam: soft, normal bowel sounds, No tenderness, No distention, No mass Extremity Exam: other (no c/c/e) OBJECTIVE DATA Vital Signs: Vital Signs - 24 hr Temp Pulse Resp BP Pulse Ox 06/25/19 08:01 64 18 94 L 06/25/19 07:57 97.5 F 60 18 169/73 90 L 06/25/19 04:15 98.1 F 68 20 188/86 93 L 06/25/19 04:09 61 20 93 L 06/25/19 00:18 98.6 F 73 20 142/70 91 L 06/25/19 00:01 68 20 90 L 06/24/19 19:59 98.5 F 73 20 157/79 94 L 06/24/19 19:48 69 20 91 L 06/24/19 16:30 97.8 F 86 20 148/80 94 L 06/24/19 14:43 80 18 93 L 06/24/19 12:03 97.7 F 82 20 154/75 92 L 06/24/19 11:01 62 18 94 L Oxygen-Last 24 hours O2 Percentage 3 Liters = 32% O2 Percentage 3 Liters = 32% O2 Percentage 3 Liters = 32% O2 Percentage 2 Liters = 28% O2 Percentage 2 Liters = 28% Pain Assessment - Last Documented Pain Intensity 0 Pain Scale Used 0-10 Pain Scale,FLACC Intake and Output: Intake & Output 06/23/19 06/24/19 06/25/19 06/26/19 06:59 06:59 06:59 06:59 Intake Total 0976 8721 9309 Output Total 7810 7350 9587 Balance -200 2709 -169 Weight 78.5 kg 79.2 kg Lab Results: Accuchecks Date 06/25/19 Date 06/24/19 Date 06/24/19 Date 06/24/19 Time 07:30 Time 22:00 Time 16:17 Time 11:20 Accucheck Value: 433 Accucheck Value: 496 Accucheck Value: 315 Lab Results-Last 24 Hours 06/25/19 06/25/19 06/25/19 Range/Units 04:40 04:40 04:40 WBC 15.1 H (4.0-10.5) K/mm3 RBC 3.51 L (4.1-5.6) M/mm3 Hgb 9.3 L (12.5-18.0) gm/dl Hct 31.2 L (42-50) % MCV 88.9 (78-100) fl MCH 26.5 (26-32) pg MCHC 29.8 L (32-36) g/dl RDW 17.7 H (11.5-14.0) % Plt Count 243 (150-450) K/mm3 MPV 10.8 H (6-9.5) fl Segmented Neutrophils 70 H (36.-66.) % Band Neutrophils 5 H (0.0-2.0) % Lymphocytes (Manual) 23 L (24-44) % Monocytes (Manual) 2 (0.0-12.0) % Platelet Estimate NORMAL (NORMAL) RBC Morphology ABNORMAL Polychromasia 1+ Poikilocytosis 1+ Anisocytosis 1+ Spherocytes 1+ PT 38.1 H (8.83-12.87) SECONDS INR 3.29 H (0.8-3.0) Sodium 140 (137-145) mmol/L Potassium 3.9 (3.5-5.1) mmol/L Chloride 99 (98-107) mmol/L Carbon Dioxide 31 H (22-30) mmol/L Anion Gap 13.8 (5-15) MEQ/L BUN 13 (9-20) mg/dL Creatinine 0.56 L (0.66-1.25) mg/dL Estimated GFR > 60.0 ML/MIN Glucose 265 H (74-106) mg/dL Calcium 10.0 (8.4-10.2) mg/dL Assessment/Plan (1) Bilateral pneumonia Current Visit: Yes Status: Acute Assessment & Plan: Continue with current antibiotics. Code(s): J18.9 - PNEUMONIA, UNSPECIFIED ORGANISM (2) Sepsis Current Visit: Yes Status: Resolved (3) COPD with exacerbation Current Visit: Yes Status: Acute Assessment & Plan: Continue with IV antibiotics, will try to wean steroids. Code(s): J44.1 - CHRONIC OBSTRUCTIVE PULMONARY DISEASE W (ACUTE) EXACERBATION (4) Diabetes type 2, uncontrolled Current Visit: Yes Status: Acute Assessment & Plan: Will adjust to try to control blood glucoses better. Hyperglycemia may be due to steroids. Code(s): E11.65 - TYPE 2 DIABETES MELLITUS WITH HYPERGLYCEMIA (5) History of DVT (deep vein thrombosis) Current Visit: Yes Status: Acute Assessment & Plan: INR a little high today; will adjust coumadin Code(s): Z86.718 - PERSONAL HISTORY OF OTHER VENOUS THROMBOSIS AND EMBOLISM (6) Seizure disorder Current Visit: No Status: Chronic Assessment & Plan: Continue home medication. Code(s): G40.909 - EPILEPSY, UNSP, NOT INTRACTABLE, WITHOUT STATUS EPILEPTICUS (7) Iron deficiency anemia Current Visit: Yes Status: Acute Assessment & Plan: Continue iron, stable and improving from when he had surgery on his back last month. Code(s): D50.9 - IRON DEFICIENCY ANEMIA, UNSPECIFIED (8) Dysphagia Current Visit: Yes Status: Acute Assessment & Plan: Continue with honey thickened liquids. Code(s): R13.10 - DYSPHAGIA, UNSPECIFIED
[2019-06-25] MEDS: Coumadin 5 MG PO SCH (17:26)
[2019-06-25] MEDS: Flomax 0.4 MG PO SCH (17:53)
[2019-06-25] MEDS: ZOCOR 20MG PO SCH (22:48)
[2019-06-25] MEDS: ZOLOFT 50 MG TABLET PO SCH (22:50)
[2019-06-25] MEDS: Lantus Insulin SQ SCH (22:51)
[2019-06-26] MEDS: MARY'S MOUTHWASH PO SCH ×4 (00:42→17:41)
[2019-06-26] MEDS: PROVENTIL 2.5 MG/3 ML NEB IH SCH ×6 (03:44→23:00)
[2019-06-26] MEDS: solu-MEDROL 125 MG IV SCH (06:23)
[2019-06-26 06:27] LABS: Hematocrit 32.6 % (42-50); Mean Cell Volume 88.1 fl (78-100); Mean Corpuscular Hgb Concent. 30.7 g/dl (32-36); Mean Platelet Volume 9.9 fl (6-9.5); Platelet Count 265 K/mm3 (150-450); Red Cell Distribution Width 17.6 % (11.5-14.0); White Blood Count 15.3 K/mm3 (4.0-10.5)
[2019-06-26 06:48] LABS: ANION GAP 13.6 MEQ/L (5-15); BLOOD UREA NITROGEN 15 mg/dL (9-20); CHLORIDE 96 mmol/L (98-107); Calcium 10.3 mg/dL (8.4-10.2); Carbon Dioxide 33 mmol/L (22-30); Creatinine 1 0.56 mg/dL (0.66-1.25); Glucose 296 mg/dL (74-106); Potassium 4.4 mmol/L (3.5-5.1); SODIUM 138 mmol/L (137-145)
[2019-06-26 07:14] LABS: INR 3.32 (0.8-3.0); PROTIME 38.5 SECONDS (8.83-12.87)
[2019-06-26] MEDS: Spiriva 18 Mcg/Cap Inhaler IH SCH (07:34)
[2019-06-26] MEDS: Advair Hfa 115/21 Common canister IH SCH ×2 (07:35→19:00)
[2019-06-26 07:41] LABS: BAND 1 % (0.0-2.0); Lymphocytes 42 % (24-44); Monocyte 6 % (0.0-12.0); Neutrophils 51 % (36.-66.); Nucleated Red Blood Cell 1 %; Platelet Estimate NORMAL (NORMAL); Total Cells Counted 100
[2019-06-26 07:42] LABS: ANISOCYTOSIS 1+; Hypochromia 1+; Polychromasia 1+
[2019-06-26] MEDS: NovoLOG Insulin SQ PRN ×3 (07:56→16:24)
[2019-06-26] MEDS: Calcium 500MG W/Vit D Tablet PO SCH ×3 (09:18→21:38)
[2019-06-26] MEDS: Vitamin C 500 MG PO SCH (09:18)
[2019-06-26] MEDS: ROCEPHIN 2 Gm-D5w 50ML BAG** 2 G/50 ML IVPB IV SCH (09:18)
[2019-06-26] MEDS: THERAGRAN MULTIVITAMIN PO SCH (09:18)
[2019-06-26] MEDS: Cymbalta 30 MG Capsule PO SCH ×2 (09:18→21:38)
[2019-06-26] MEDS: CLARITIN 10 MG PO SCH (09:18)
[2019-06-26] MEDS: NEURONTIN 300 MG PO SCH ×3 (09:19→21:40)
[2019-06-26] MEDS: VITAMIN D PO SCH (09:19)
[2019-06-26] MEDS: Protonix 40MG Tablet PO SCH ×2 (09:19→21:41)
[2019-06-26] MEDS: MYSOLINE 50MG PO SCH ×3 (09:19→21:40)
[2019-06-26] MEDS ORDERED: Lasix 40 MG/4 ML IV ONE ×2 (10:00)
[2019-06-26] MEDS: Zithromax 500 MG/ 250 ML NaCl Premix 500 MG/250 ML IVPB IV SCH (10:09)
[2019-06-26] MEDS: solu-MEDROL 40 MG IV SCH ×2 (10:13→21:41)
[2019-06-26] MEDS: Sodium Chloride 0.9% 10 ML FLUSH Syringe IV SCH ×2 (12:41→21:41)
[2019-06-26] MEDS: Flomax 0.4 MG PO SCH (17:40)
[2019-06-26] MEDS: Coumadin 5 MG PO SCH (17:40)
[2019-06-26] MEDS: Lantus Insulin SQ SCH (21:40)
[2019-06-26] MEDS: ZOCOR 20MG PO SCH (21:42)
[2019-06-26] MEDS: ZOLOFT 50 MG TABLET PO SCH (21:42)
[2019-06-27] MEDS: MARY'S MOUTHWASH PO SCH ×4 (00:38→17:51)
[2019-06-27] MEDS: PROVENTIL 2.5 MG/3 ML NEB IH SCH ×6 (03:00→23:00)
[2019-06-27 06:29] LABS: Hemoglobin 11.3 gm/dl (12.5-18.0); Mean Cell Volume 86.1 fl (78-100); Mean Corpuscular Hgb Concent. 31.4 g/dl (32-36); Mean Platelet Volume 10.2 fl (6-9.5); Platelet Count 291 K/mm3 (150-450); Red Blood Count 4.18 M/mm3 (4.1-5.6); Red Cell Distribution Width 18.5 % (11.5-14.0)
[2019-06-27] MEDS: Sodium Chloride 0.9% 10 ML FLUSH Syringe IV SCH ×3 (06:38→22:24)
[2019-06-27 06:51] LABS: SODIUM 137 mmol/L (137-145)
[2019-06-27 06:57] LABS: INR 2.55 (0.8-3.0); PROTIME 29.4 SECONDS (8.83-12.87)
[2019-06-27 06:59] LABS: BLOOD UREA NITROGEN 37 mg/dL (9-20); CHLORIDE 94 mmol/L (98-107); Calcium 8.6 mg/dL (8.4-10.2); Carbon Dioxide 33 mmol/L (22-30); Creatinine 1 0.82 mg/dL (0.66-1.25); Glucose 249 mg/dL (74-106); NT PRO BNP 530 pg/mL (0-900); Potassium 3.9 mmol/L (3.5-5.1)
[2019-06-27 07:06] LABS: ANION GAP 13.9 MEQ/L (5-15)
[2019-06-27] MEDS: NovoLOG Insulin SQ PRN ×4 (08:11→22:21)
[2019-06-27 08:19] LABS: ATYPICAL LYMPHS 1 %; BAND 3 % (0.0-2.0); Lymphocytes 48 % (24-44); Metamyelocyte 1 %; Monocyte 3 % (0.0-12.0); Neutrophils 44 % (36.-66.); Total Cells Counted 100
[2019-06-27 08:20] LABS: ANISOCYTOSIS 1+; Platelet Estimate NORMAL (NORMAL); Poikilocytosis 1+; Polychromasia 1+
[2019-06-27] MEDS: Spiriva 18 Mcg/Cap Inhaler IH SCH (08:52)
[2019-06-27] MEDS: Advair Hfa 115/21 Common canister IH SCH ×2 (08:53→19:02)
[2019-06-27] MEDS: ROCEPHIN 2 Gm-D5w 50ML BAG** 2 G/50 ML IVPB IV SCH (09:13)
[2019-06-27] MEDS: NEURONTIN 300 MG PO SCH ×3 (09:13→22:03)
[2019-06-27] MEDS: CLARITIN 10 MG PO SCH (09:13)
[2019-06-27] MEDS: Zithromax 500 MG/ 250 ML NaCl Premix 500 MG/250 ML IVPB IV SCH (09:13)
[2019-06-27] MEDS: FEOSOL 325 MG PO SCH (09:14)
[2019-06-27] MEDS: Cymbalta 30 MG Capsule PO SCH ×2 (09:14→22:02)
[2019-06-27] MEDS: DELTASONE 20 MG PO SCH (09:14)
[2019-06-27] MEDS: Lasix 40 MG PO SCH (09:14)
[2019-06-27] MEDS: Vitamin C 500 MG PO SCH (09:14)
[2019-06-27] MEDS: MYSOLINE 50MG PO SCH ×3 (09:14→22:03)
[2019-06-27] MEDS: Protonix 40MG Tablet PO SCH ×2 (09:14→22:03)
[2019-06-27] MEDS: THERAGRAN MULTIVITAMIN PO SCH (09:14)
[2019-06-27] MEDS: Calcium 500MG W/Vit D Tablet PO SCH ×3 (09:14→22:02)
[2019-06-27] MEDS: VITAMIN D PO SCH (09:14)
[2019-06-27] MEDS: Coumadin 5 MG PO SCH (17:51)
[2019-06-27] MEDS: Flomax 0.4 MG PO SCH (17:51)
[2019-06-27 18:28] LABS: 027 TOX PROD PRESUMPTIVE NEGATIVE (NEGATIVE); TOXIGENIC C. DIFF ORG NEGATIVE (NEGATIVE)
[2019-06-27] MEDS: ZOCOR 20MG PO SCH (21:59)
[2019-06-27] MEDS: ZOLOFT 50 MG TABLET PO SCH (22:01)
[2019-06-27] MEDS: Lantus Insulin SQ SCH (22:20)
[2019-06-28] MEDS: PROVENTIL 2.5 MG/3 ML NEB IH SCH ×4 (03:00→14:51)
[2019-06-28 05:18] LABS: Hematocrit 29.7 % (42-50); Hemoglobin 9.2 gm/dl (12.5-18.0); Mean Cell Volume 87.1 fl (78-100); Mean Platelet Volume 9.7 fl (6-9.5); Platelet Count 227 K/mm3 (150-450); Red Blood Count 3.41 M/mm3 (4.1-5.6); White Blood Count 10.9 K/mm3 (4.0-10.5)
[2019-06-28 05:25] LABS: INR 3.05 (0.8-3.0); PROTIME 35.2 SECONDS (8.83-12.87)
[2019-06-28 05:33] LABS: ALBUMIN 2.8 g/dL (3.5-5.0); ALKALINE PHOSPHATASE 43 U/L (38-126); ANION GAP 8.7 MEQ/L (5-15); BLOOD UREA NITROGEN 19 mg/dL (9-20); CHLORIDE 95 mmol/L (98-107); Calcium 8.4 mg/dL (8.4-10.2); Carbon Dioxide 34 mmol/L (22-30); Creatinine 1 0.56 mg/dL (0.66-1.25); Glucose 217 mg/dL (74-106); Potassium 3.2 mmol/L (3.5-5.1); SGOT/AST 17 U/L (17-59); SGPT/ALT 21 U/L (0-50); SODIUM 134 mmol/L (137-145); Total Protein 5.3 g/dL (6.3-8.2)
[2019-06-28] MEDS: MARY'S MOUTHWASH PO SCH ×2 (06:42→14:35)
[2019-06-28] MEDS: Sodium Chloride 0.9% 10 ML FLUSH Syringe IV SCH ×2 (06:42→12:56)
[2019-06-28] MEDS: Spiriva 18 Mcg/Cap Inhaler IH SCH (06:48)
[2019-06-28] MEDS: Advair Hfa 115/21 Common canister IH SCH (06:48)
[2019-06-28] MEDS ORDERED: Klor Con 10 MEQ PO ONE (08:04)
[2019-06-28] MEDS: DELTASONE 20 MG PO SCH (10:46)
[2019-06-28] MEDS: Cymbalta 30 MG Capsule PO SCH (10:46)
[2019-06-28] MEDS: THERAGRAN MULTIVITAMIN PO SCH (10:47)
[2019-06-28] MEDS: Calcium 500MG W/Vit D Tablet PO SCH ×2 (10:47→14:35)
[2019-06-28] MEDS: Lasix 40 MG PO SCH (10:47)
[2019-06-28] MEDS: NEURONTIN 300 MG PO SCH ×2 (10:47→14:35)
[2019-06-28] MEDS: VITAMIN D PO SCH (10:47)
[2019-06-28] MEDS: Protonix 40MG Tablet PO SCH (10:47)
[2019-06-28] MEDS: MYSOLINE 50MG PO SCH ×2 (10:47→14:35)
[2019-06-28] MEDS: ROCEPHIN 2 Gm-D5w 50ML BAG** 2 G/50 ML IVPB IV SCH (10:48)
[2019-06-28] MEDS: Zithromax 500 MG/ 250 ML NaCl Premix 500 MG/250 ML IVPB IV SCH (10:48)
[2019-06-28] MEDS: CLARITIN 10 MG PO SCH (10:48)
[2019-06-28] MEDS: Vitamin C 500 MG PO SCH (10:48)
[2019-06-28 11:36] VITALS: BP 109/57; PULSE 96
[2019-06-28] MEDS: NovoLOG Insulin SQ PRN (13:01)
[2019-06-28 15:00] VITALS: O2SAT 95
--- NOTE | 2019-06-29 14:38 | DS ---
DISCHARGE DIAGNOSES: 1) BILATERAL PNEUMONIA. 2) SEPSIS. 3) CHRONIC OBSTRUCTIVE PULMONARY DISEASE WITH EXACERBATION. 4) DIABETES MELLITUS TYPE 2, UNCONTROLLED. 5) HISTORY OF DEEP VENOUS THROMBOSIS. 6) SEIZURE DISORDER. 7) IRON DEFICIENCY ANEMIA. 8) DYSPHAGIA. DISCHARGE PHYSICAL EXAMINATION: VITALS: Temperature current 98.6F, heart rate 94, respiratory rate 20, weight 77.8 kg. Oxygen saturation 92% on 2 liters. GENERAL: The patient is pleasant talkative man sitting up in bed in no acute distress. CVS: His heart has a regular rate and rhythm. No murmurs, gallops or rubs are appreciated. CHEST: He has a few scattered wheezes, equal breath sounds. ABDOMEN: Soft, nontender, nondistended with normal bowel sounds. EXTREMITIES: No clubbing, cyanosis or edema. SKIN: Warm, dry and intact. HOSPITAL COURSE: 1) BILATERAL PNEUMONIA: He was treated with seven days of Rocephin and six days of azithromycin. He is being discharged to a swing-bed for rehabilitation. 2) SEPSIS: This resolved with fluids and IV antibiotics. His blood pressure and vital signs were stable at the time of discharge. 3) CHRONIC OBSTRUCTIVE PULMONARY DISEASE WITH EXACERBATION: He was on IV antibiotics and also IV steroids. These were changed to oral steroids over the weekend and he is doing well with this change. He continues on albuterol, Spiriva and advair. 4) DIABETES MELLITUS TYPE 2, UNCONTROLLED: He had some hyperglycemia most likely due to the steroids. He is on Lantus and on a sliding scale. 5) HISTORY OF DEEP VENOUS THROMBOSIS: He has history of a right lower leg deep venous thrombosis on recent hospital admission in [place]. He was continued on Coumadin. I checked his international normalized ratio daily and adjusted the Coumadin as needed. 6) SEIZURE DISORDER: He was continued on his home medication and no sign of a seizure. 7) IRON DEFICIENCY ANEMIA: He was continued on oral iron and his hemoglobin was stable and much improved from when it was about 7 during his hospital in [place]. 8) DYSPHAGIA: He was continued on honey-thickened liquids while he was in the hospital. DISCHARGE MEDICATIONS: Please see the discharge order. DISPOSITION: He was discharged to swing-bed for PT and OT, and continued medical care.
== END 2019-06-28 15:20 | disposition swing bed (61) | DRG 193 ==
LOC: ED 08:12 → MED SURG 15:17 → OBSVTOIN 17:11
PROVIDERS: ADMIT Internal Medicine; ATTEND Internal Medicine
DX: J18.9 Pneumonia, unspecified organism (principal); A41.9 Sepsis, unspecified organism; J44.1 Chronic obstructive pulmonary disease with (acute) exacerbation; E11.9 Type 2 diabetes mellitus without complications; R09.02 Hypoxemia; Z86.718 Personal history of other venous thrombosis and embolism; D50.9 Iron deficiency anemia, unspecified; R13.10 Dysphagia, unspecified; G40.909 Epilepsy, unspecified, not intractable, without status epilepticus
CPT/HCPCS: 36415; 71045; 80048; 80053; 80164; 81001; 82962; 83605; 83880; 85025; 85027; 85610; 86308; 87040; 87070; 87077; 87086; 87493; 87631; 87651; 93041; 94150; 94640; 94760; 96360; 96361; 96365; 99285; 99291; J0456; J0696; J1940; J2405; J2920; J2930; J7609; A9270-GY

== ENCOUNTER 2019-06-28 10:09 | Inpatient (IN) | payer MEDICARE ==
[2019-06-28] MEDS ORDERED: TYLENOL 325 MG PO PRN (15:40)
[2019-06-28] MEDS ORDERED: MEDICATION INTERVENTION MC SCH (15:40)
[2019-06-28] MEDS ORDERED: PROVENTIL COMMON CANISTER IH PRN (15:40)
[2019-06-28] MEDS ORDERED: Aplisol ID ONE (15:40)
[2019-06-28] MEDS ORDERED: MEDICATION INTERVENTION PO SCH (15:40)
[2019-06-28] MEDS ORDERED: Miralax Powder 17GM PACKET PO PRN (15:40)
[2019-06-28] MEDS ORDERED: Zofran 4 MG/2 ML VIAL IV PRN (15:40)
[2019-06-28] MEDS ORDERED: Coumadin 5 MG PO SCH (18:00)
[2019-06-28] MEDS: Coumadin 2 MG PO SCH (18:15)
[2019-06-28] MEDS: Flomax 0.4 MG PO SCH (18:16)
[2019-06-28] MEDS: MARY'S MOUTHWASH PO SCH ×2 (18:17→23:30)
[2019-06-28] MEDS: NovoLOG Insulin SQ PRN ×2 (18:17→21:38)
[2019-06-28] MEDS: PROVENTIL 2.5 MG/3 ML NEB IH SCH ×2 (19:39→23:33)
[2019-06-28] MEDS: Advair Hfa 115/21 Common canister IH SCH (19:50)
[2019-06-28] MEDS: ZOLOFT 50 MG TABLET PO SCH (21:33)
[2019-06-28] MEDS: MYSOLINE 50MG PO SCH (21:33)
[2019-06-28] MEDS: NEURONTIN 300 MG PO SCH (21:33)
[2019-06-28] MEDS: Cymbalta 30 MG Capsule PO SCH (21:33)
[2019-06-28] MEDS: ZOCOR 20MG PO SCH (21:34)
[2019-06-28] MEDS: Calcium 500MG W/Vit D Tablet PO SCH (21:34)
[2019-06-28] MEDS: Lantus Insulin SQ SCH (21:37)
[2019-06-28] MEDS: Protonix 40MG Tablet PO SCH (21:37)
[2019-06-28] MEDS: Sodium Chloride 0.9% 10 ML FLUSH Syringe IV SCH (22:01)
[2019-06-29] MEDS: PROVENTIL 2.5 MG/3 ML NEB IH SCH ×6 (03:18→22:13)
[2019-06-29] MEDS: MARY'S MOUTHWASH PO SCH ×3 (06:55→17:17)
[2019-06-29] MEDS: Sodium Chloride 0.9% 10 ML FLUSH Syringe IV SCH ×3 (06:55→20:55)
[2019-06-29] MEDS: Advair Hfa 115/21 Common canister IH SCH ×2 (07:39→18:48)
[2019-06-29] MEDS: Spiriva 18 Mcg/Cap Inhaler IH SCH (07:40)
[2019-06-29] MEDS: VITAMIN D PO SCH (09:02)
[2019-06-29] MEDS: THERAGRAN MULTIVITAMIN PO SCH (09:02)
[2019-06-29] MEDS: Cymbalta 30 MG Capsule PO SCH ×2 (09:02→20:52)
[2019-06-29] MEDS: NEURONTIN 300 MG PO SCH ×3 (09:02→20:54)
[2019-06-29] MEDS: MYSOLINE 50MG PO SCH ×3 (09:03→20:53)
[2019-06-29] MEDS: Calcium 500MG W/Vit D Tablet PO SCH ×3 (09:03→20:52)
[2019-06-29] MEDS: Vitamin C 500 MG PO SCH (09:03)
[2019-06-29] MEDS: Protonix 40MG Tablet PO SCH ×2 (09:03→20:54)
[2019-06-29] MEDS: CLARITIN 10 MG PO SCH (09:03)
[2019-06-29] MEDS: DELTASONE 20 MG PO SCH (09:03)
[2019-06-29] MEDS ORDERED: Zithromax 500 MG/ 250 ML NaCl Premix 500 MG/250 ML IVPB IV SCH (10:00)
[2019-06-29] MEDS ORDERED: ROCEPHIN 2 Gm-D5w 50ML BAG** 2 G/50 ML IVPB IV SCH (10:00)
[2019-06-29] MEDS ORDERED: Lasix 40 MG PO SCH (10:00)
[2019-06-29] MEDS: NovoLOG Insulin SQ PRN ×3 (12:09→20:50)
[2019-06-29] MEDS: Flomax 0.4 MG PO SCH (17:17)
[2019-06-29] MEDS: Coumadin 2 MG PO SCH (17:17)
[2019-06-29] MEDS: Lantus Insulin SQ SCH (20:50)
[2019-06-29] MEDS: ZOLOFT 50 MG TABLET PO SCH (20:55)
[2019-06-29] MEDS: ZOCOR 20MG PO SCH (20:55)
[2019-06-30] MEDS: MARY'S MOUTHWASH PO SCH ×5 (00:11→23:06)
[2019-06-30] MEDS: PROVENTIL 2.5 MG/3 ML NEB IH SCH ×6 (02:08→23:31)
[2019-06-30 04:20] LABS: PROTIME 22.5 SECONDS (8.83-12.87)
[2019-06-30 04:29] LABS: INR 1.96 (0.8-3.0)
[2019-06-30] MEDS: Sodium Chloride 0.9% 10 ML FLUSH Syringe IV SCH ×3 (06:14→21:35)
[2019-06-30] MEDS: Advair Hfa 115/21 Common canister IH SCH ×2 (07:06→19:11)
[2019-06-30] MEDS: Spiriva 18 Mcg/Cap Inhaler IH SCH (07:06)
[2019-06-30] MEDS: Cymbalta 30 MG Capsule PO SCH ×2 (09:16→21:33)
[2019-06-30] MEDS: VITAMIN D PO SCH (09:16)
[2019-06-30] MEDS: THERAGRAN MULTIVITAMIN PO SCH (09:16)
[2019-06-30] MEDS: DELTASONE 20 MG PO SCH (09:17)
[2019-06-30] MEDS: Vitamin C 500 MG PO SCH (09:17)
[2019-06-30] MEDS: Calcium 500MG W/Vit D Tablet PO SCH ×3 (09:17→21:34)
[2019-06-30] MEDS: MYSOLINE 50MG PO SCH ×3 (09:17→21:35)
[2019-06-30] MEDS: NEURONTIN 300 MG PO SCH ×3 (09:17→21:35)
[2019-06-30] MEDS: CLARITIN 10 MG PO SCH (09:17)
[2019-06-30] MEDS: Protonix 40MG Tablet PO SCH ×2 (09:17→21:34)
[2019-06-30] MEDS: FEOSOL 325 MG PO SCH (09:17)
[2019-06-30] MEDS ORDERED: PATIENT OWN MEDICATION SQ SCH (10:00)
[2019-06-30] MEDS: PATIENT OWN MEDICATION PO SCH (11:44)
[2019-06-30] MEDS: NovoLOG Insulin SQ PRN ×3 (11:45→21:35)
[2019-06-30] MEDS: Coumadin 3 MG PO SCH (17:47)
[2019-06-30] MEDS: Flomax 0.4 MG PO SCH (17:50)
[2019-06-30] MEDS: ZOCOR 20MG PO SCH (21:34)
[2019-06-30] MEDS: Lantus Insulin SQ SCH (21:35)
[2019-06-30] MEDS: ZOLOFT 50 MG TABLET PO SCH (21:35)
[2019-07-01] MEDS: Sodium Chloride 0.9% 10 ML FLUSH Syringe IV SCH (05:32)
[2019-07-01] MEDS: MARY'S MOUTHWASH PO SCH ×4 (05:33→23:41)
[2019-07-01] MEDS: PROVENTIL 2.5 MG/3 ML NEB IH SCH ×6 (05:41→23:35)
[2019-07-01] MEDS: Spiriva 18 Mcg/Cap Inhaler IH SCH (07:24)
[2019-07-01] MEDS: Advair Hfa 115/21 Common canister IH SCH ×2 (07:24→19:16)
[2019-07-01] MEDS: Calcium 500MG W/Vit D Tablet PO SCH ×3 (09:21→21:36)
[2019-07-01] MEDS: NEURONTIN 300 MG PO SCH ×3 (09:21→21:36)
[2019-07-01] MEDS: CLARITIN 10 MG PO SCH (09:21)
[2019-07-01] MEDS: Vitamin C 500 MG PO SCH (09:21)
[2019-07-01] MEDS: MYSOLINE 50MG PO SCH ×3 (09:21→21:36)
[2019-07-01] MEDS: Cymbalta 30 MG Capsule PO SCH ×2 (09:21→21:35)
[2019-07-01] MEDS: Protonix 40MG Tablet PO SCH ×2 (09:21→21:36)
[2019-07-01] MEDS: THERAGRAN MULTIVITAMIN PO SCH (09:21)
[2019-07-01] MEDS: VITAMIN D PO SCH (09:21)
[2019-07-01] MEDS: DELTASONE 20 MG PO SCH (09:21)
[2019-07-01] MEDS: PATIENT OWN MEDICATION PO SCH (09:33)
[2019-07-01] MEDS: NovoLOG Insulin SQ PRN ×3 (11:55→21:37)
[2019-07-01] MEDS: Flomax 0.4 MG PO SCH (16:28)
[2019-07-01] MEDS: Coumadin 3 MG PO SCH (18:20)
[2019-07-01] MEDS: ZOLOFT 50 MG TABLET PO SCH (21:35)
[2019-07-01] MEDS: ZOCOR 20MG PO SCH (21:35)
[2019-07-01] MEDS: Lantus Insulin SQ SCH (21:36)
[2019-07-02] MEDS: PROVENTIL 2.5 MG/3 ML NEB IH SCH ×3 (03:37→11:27)
[2019-07-02] MEDS: MARY'S MOUTHWASH PO SCH ×2 (06:13→11:04)
[2019-07-02] MEDS: Advair Hfa 115/21 Common canister IH SCH (07:04)
[2019-07-02] MEDS: Spiriva 18 Mcg/Cap Inhaler IH SCH (07:08)
[2019-07-02 07:16] VITALS: O2SAT 94
[2019-07-02 07:59] VITALS: BP 102/53
[2019-07-02 09:11] LABS: Hematocrit 33.8 % (42-50); Hemoglobin 10.1 gm/dl (12.5-18.0); Mean Cell Volume 87.6 fl (78-100); Mean Corpuscular Hemoglobin 26.2 pg (26-32); Mean Corpuscular Hgb Concent. 29.9 g/dl (32-36); Platelet Count 281 K/mm3 (150-450); Red Blood Count 3.86 M/mm3 (4.1-5.6); Red Cell Distribution Width 17.4 % (11.5-14.0); White Blood Count 15.1 K/mm3 (4.0-10.5)
[2019-07-02] MEDS: CLARITIN 10 MG PO SCH (09:17)
[2019-07-02] MEDS: Calcium 500MG W/Vit D Tablet PO SCH (09:17)
[2019-07-02] MEDS: Cymbalta 30 MG Capsule PO SCH (09:17)
[2019-07-02] MEDS: FEOSOL 325 MG PO SCH (09:19)
[2019-07-02] MEDS: NEURONTIN 300 MG PO SCH (09:19)
[2019-07-02] MEDS: MYSOLINE 50MG PO SCH (09:19)
[2019-07-02] MEDS: THERAGRAN MULTIVITAMIN PO SCH (09:20)
[2019-07-02] MEDS: Protonix 40MG Tablet PO SCH (09:20)
[2019-07-02] MEDS: PATIENT OWN MEDICATION PO SCH (09:20)
[2019-07-02] MEDS: VITAMIN D PO SCH (09:21)
[2019-07-02] MEDS: Vitamin C 500 MG PO SCH (09:21)
[2019-07-02 09:28] LABS: INR 1.2 (0.8-3.0); PROTIME 13.6 SECONDS (8.83-12.87)
[2019-07-02 09:37] LABS: ANION GAP 11.9 MEQ/L (5-15); BLOOD UREA NITROGEN 14 mg/dL (9-20); CHLORIDE 97 mmol/L (98-107); Calcium 9.4 mg/dL (8.4-10.2); Carbon Dioxide 36 mmol/L (22-30); Creatinine 1 0.56 mg/dL (0.66-1.25); Glucose 162 mg/dL (74-106); Potassium 3.7 mmol/L (3.5-5.1); SODIUM 141 mmol/L (137-145)
[2019-07-02] MEDS ORDERED: DELTASONE 10 MG PO SCH (10:00)
[2019-07-02 10:04] LABS: ATYPICAL LYMPHS 1 %; BAND 2 % (0.0-2.0); Lymphocytes 48 % (24-44); Monocyte 6 % (0.0-12.0); Neutrophils 43 % (36.-66.); Total Cells Counted 100
[2019-07-02 10:05] LABS: Platelet Estimate NORMAL (NORMAL)
[2019-07-02 10:06] LABS: Absolute Neutrophil Ct (ANC) 6.8 (1.4-6.9); Hypochromia 1+; Macrocytosis RARE; Polychromasia 1+
[2019-07-02 11:29] VITALS: PULSE 91
[2019-07-02] MEDS: NovoLOG Insulin SQ PRN (12:56)
--- NOTE | 2019-07-02 13:26 | PCM.DCORD ---
- Discharge Discharge Date: 07/02/19 Disposition: Home, Self-Care Condition: Fair Prescriptions: New Prednisone 10 mg [Deltasone 10 mg] 10 mg PO DAILY #5 tablet Insulin Glargine [Lantus Insulin] 16 unit SQ HS unit Continue Sertraline HCl 100 mg PO HS Gabapentin 600 mg PO TID Omeprazole 40 mg PO BID Fluticasone/Salmeterol [Advair 250-50 Diskus] 1 puff IH BID Tiotropium Sunol Inhaler [Spiriva 18 Mcg/Cap Inhaler] 18 mcg IH DAILY Primidone 50 MG [Mysoline 50Mg] 50 mg PO TID Ferrous Sulfate 325 mg [Feosol 325 mg] 325 mg PO BID Tamsulosin HCl 0.4 mg [Flomax 0.4 MG] 0.4 mg PO 1700 Duloxetine HCl [Cymbalta] 60 mg PO BID Divalproex Sodium [Depakote] 1,000 mg PO BID Multivitamin [Multivitamins] 1 each PO DAILY Albuterol Sulfate [Proair Hfa] 2 puff IH Q4H PRN PRN PRN Reason: Shortness Of Breath/Wheezing Cholecalciferol (Vitamin D3) [Vitamin D3] 1,000 unit PO DAILY Polyethylene Glycol 3350 17 gm [Miralax Powder 17GM PACKET] 17 gm PO DAILY PRN #30 packet PRN Reason: Constipation Calcium Phosphate Trib/Vit D3 [Calcium-Vitamin D3 Gummies] 1 tab PO TID Acetaminophen 650 mg PO Q6H PRN PRN PRN Reason: Fever Warfarin Sodium 7 mg PO 1800 Semaglutide [Ozempic] 0.25 mg SQ WEEKLY Loratadine 10 mg PO DAILY Atorvastatin Calcium 40 mg PO HS Ascorbic Acid [Fruit C-500] 500 mg PO DAILY Maltodextrin/Xanthan Gum [Thicken Up Clear Powder Packet] 1 packet PO ACHS Mirabegron [Myrbetriq] 50 mg PO DAILY Discontinued Nystatin/TCN/Hc/Diphenhydramin [Kylee's Mouthwash] 5 ml PO Q6HT #150 bottle Insulin Glargine [Lantus Insulin] 10 units SQ HS Follow up with: [facility] [ACTIVE STAFF] - 1 Week CUONG BROWN [Primary Care Provider] - 1 Week
== END 2019-07-02 14:10 | disposition home or self-care (01) | DRG 193 ==
LOC: MED SURG 15:20
PROVIDERS: ADMIT Internal Medicine; ATTEND Internal Medicine
DX: J18.9 Pneumonia, unspecified organism (principal); A41.9 Sepsis, unspecified organism; J44.1 Chronic obstructive pulmonary disease with (acute) exacerbation; E11.9 Type 2 diabetes mellitus without complications; R13.10 Dysphagia, unspecified; G40.909 Epilepsy, unspecified, not intractable, without status epilepticus; R32 Unspecified urinary incontinence; M21.372 Foot drop, left foot; M21.371 Foot drop, right foot; Z86.718 Personal history of other venous thrombosis and embolism; Z79.01 Long term (current) use of anticoagulants; Z79.899 Other long term (current) drug therapy
CPT/HCPCS: 36415; 80048; 82962; 85025; 85610; 94150; 94640; 94760; J7609; 97110-GP; A9270-GY

== ENCOUNTER 2019-11-07 11:06 | Emergency (ER) | payer MEDICARE ==
[2019-11-07 12:34] LABS: ALKALINE PHOSPHATASE 54 U/L (38-126); AMYLASE 68 U/L (30-110); ANION GAP 11.2 MEQ/L (5-15); BLOOD UREA NITROGEN 8 mg/dL (9-20); CHLORIDE 100 mmol/L (98-107); Calcium 9.4 mg/dL (8.4-10.2); Carbon Dioxide 34 mmol/L (22-30); Creatinine 1 0.57 mg/dL (0.66-1.25); Glucose 104 mg/dL (74-106); LIPASE 48 U/L (23-300); Potassium 4.2 mmol/L (3.5-5.1); SGOT/AST 38 U/L (17-59); SGPT/ALT 22 U/L (0-50); SODIUM 141 mmol/L (137-145); Total Protein 6.9 g/dL (6.3-8.2)
[2019-11-07 12:39] LABS: Absolute Neutrophil Ct (ANC) 4.53 (1.4-6.9); BASOPHIL % 0.2 % (0.0-0.4); Basophil (Absolute #) 0.02 (0-0.4); Eosinophil % 0.4 % (0.00-5.0); Eosinophil (Absolute #) 0.05 (0-0.5); Hematocrit 41.5 % (42-50); Hemoglobin 13.4 gm/dl (12.5-18.0); Lymphocyte (Absolute #) 6.39 (1.0-4.6); Lymphocytes % 54.7 % (24.0-44.0); Mean Cell Volume 92.6 fl (78-100); Mean Corpuscular Hemoglobin 29.9 pg (26-32); Mean Corpuscular Hgb Concent. 32.3 g/dl (32-36); Mean Platelet Volume 10.4 fl (7.5-11.0); Neutrophil % 38.7 % (36.0-66.0); Platelet Count 163 K/mm3 (150-450); Red Blood Count 4.48 M/mm3 (4.1-5.6); Red Cell Distribution Width 14.7 % (11.5-14.0); White Blood Count 11.7 K/mm3 (4.0-10.5)
[2019-11-07 12:46] LABS: ACETAMINOPHEN < 10 ug/ml (10-30); ETHYL ALCOHOL < 10 mg/dL (0-10); SALICYLATE < 1.0 mg/dL (2-20)
[2019-11-07 12:52] LABS: Appearance CLEAR (CLEAR); Bilirubin NEGATIVE (NEGATIVE); Blood NEGATIVE Ery/ul (0-5); Glucose 50 mg/dL (NEGATIVE); Ketones NEGATIVE (NEGATIVE); Leukocyte Esterase NEGATIVE (NEGATIVE); Nitrite NEGATIVE (NEGATIVE); Protein,Urine Dip NEGATIVE (Negative); Specific Gravity 1.014 (1.005-1.025); Urobilinogen NEGATIVE mg/dL (0-1)
[2019-11-07 13:05] LABS: Amphetamine,Urine NEGATIVE (NEGATIVE); Barbiturate,Urine POSITIVE (NEGATIVE); Benzodiazepine,Urine NEGATIVE (NEGATIVE); Cocaine,Urine NEGATIVE (NEGATIVE); Methadone,Urine NEGATIVE (NEGATIVE); Opiate,Urine NEGATIVE (NEGATIVE); PCP,Urine NEGATIVE (NEGATIVE); THC,Urine NEGATIVE (NEGATIVE)
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
[2019-11-07 14:31] LABS: Slide Review 1 YES
[2019-11-07] MEDS ORDERED: Zithromax 500 MG/ 250 ML NaCl Premix 500 MG/250 ML IVPB IV STA (15:41)
[2019-11-07] MEDS ORDERED: ROCEPHIN 1 Gm-D5w 50 ml Bag** 1 G/50 ML IVPB IV STA (15:41)
[2019-11-07] MEDS ORDERED: PROVENTIL 2.5 MG/3 ML NEB IH ONE (15:44)
[2019-11-07] MEDS ORDERED: Sodium Chloride 0.9% 1000 ML 1,000 ML IV SCH (15:45)
[2019-11-07] MEDS ORDERED: PROVENTIL Solution 2.5 MG/0.5 ML IH ONE (15:49)
[2019-11-07] MEDS ORDERED: ROCEPHIN 1 Gm-D5w 50 ml Bag** 1 G/50 ML IVPB IV ONE (16:19)
[2019-11-07] MEDS ORDERED: Sodium Chloride 0.9% 1000 ML 1,000 ML ONE (16:19)
[2019-11-07] MEDS ORDERED: Zithromax 500 MG/ 250 ML NaCl Premix 500 MG/250 ML IVPB IV ONE (16:19)
[2019-11-07 16:40] VITALS: O2SAT 97
[2019-11-07 18:07] VITALS: BP 143/78; PULSE 67
--- NOTE | 2019-11-07 20:40 | XRAY ---
Indication: Airspace disease. Comparison: June 22, 2019. PA/lateral chest improved with now minimal left base infiltrate/atelectasis. Remaining heart and lungs normal. Bony thorax intact again with old right 3 rib fracture. Comment: Preliminary interpretation was made by [facility]. No critical discrepancy.
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
== END 2019-11-07 18:09 | disposition home or self-care (01) ==
LOC: ED 11:06
DX: J18.9 Pneumonia, unspecified organism (principal); F41.9 Anxiety disorder, unspecified; J44.9 Chronic obstructive pulmonary disease, unspecified; R89.2 Abnormal level of other drugs, medicaments and biological substances in specimens from other organs, systems and tissues; R45.851 Suicidal ideations; F32.9 Major depressive disorder, single episode, unspecified; X78.1XXA Intentional self-harm by knife, initial encounter; Y93.89 Activity, other specified; Y92.009 Unspecified place in unspecified non-institutional (private) residence as the place of occurrence of the external cause; S31.119A Laceration without foreign body of abdominal wall, unspecified quadrant without penetration into peritoneal cavity, initial encounter; E11.9 Type 2 diabetes mellitus without complications; M19.90 Unspecified osteoarthritis, unspecified site; E78.00 Pure hypercholesterolemia, unspecified; Z79.899 Other long term (current) drug therapy
CPT/HCPCS: 12001; 36000; 36415; 71046; 74176; 80053; 80164; 80307; 81001; 82150; 83690; 85025; 87040; 90791; 94640; 96365; 96368; 99285; G0480; G0481; Q3014; J0456; J0696; J7609; A9270-GY

== ENCOUNTER 2020-01-02 11:24 | Emergency (ER) | payer MEDICARE ==
[2020-01-02 11:32] VITALS: BP 142/90; PULSE 75; O2SAT 96
--- NOTE | 2020-01-02 11:34 | ERPHSYRPT ---
- History of Present Illness Time Seen by Provider: 01/02/20 11:38 Source: patient Exam Limitations: no limitations Physician History: Patient is a 64-year-old male with a history of MR who presents to our ED via EMS. Patient was sent here because he had an episode of aggression while at [employer]. Patient apparently went to hug woman at the mosque and she declined his hug. Patient became upset. There was no injury no trauma no assault. No homicidal ideation no suicidal ideation patient is calm now. Patient states he wants to go home. There is no indication to work patient up or to maintain patient in our ED. Patient lives with his sister. Patient states he feels safe at his sister at home. Patient states he just wants to go home. Patient voices no other complaints or concerns at this time. Patient denies pain discomfort injury. He voices no other complaint at this time. Patient's sister was notified. She will take patient back home. Patient sister does not express any reservations or concerns at this time. Timing/Duration: today Severity of Symptoms-Max: none Severity of Symptoms-Current: none Suicidal thoughts: other (No suicidal ideation.) Associated Symptoms: denies symptoms, angry (Patient somewhat upset because a woman declined his hug.) Previous symptoms: no prior history Allergies/Adverse Reactions: adhesive tape Allergy (Verified 01/02/20 11:26) bee venom protein (honey bee) Allergy (Verified 01/02/20 11:26) Home Medications: Fluticasone/Salmeterol [Advair 250-50 Diskus] 1 puff IH BID 01/01/12 [History] Gabapentin 600 mg PO TID 01/01/12 [History] Omeprazole 40 mg PO BID 01/01/12 [History] Sertraline HCl 100 mg PO HS 01/01/12 [History] Tiotropium [place] Inhaler [Spiriva 18 Mcg/Cap Inhaler] 18 mcg IH DAILY [History] Divalproex Sodium [Depakote] 1,000 mg PO BID 03/31/14 [History] Duloxetine HCl [Cymbalta] 60 mg PO BID 03/31/14 [History] Ferrous Sulfate 325 mg [Feosol 325 mg] 325 mg PO BID 03/31/14 [History] Multivitamin [Multivitamins] 1 each PO DAILY 03/31/14 [History] Primidone 50 MG [Mysoline 50Mg] 50 mg PO TID 03/31/14 [History] Tamsulosin HCl 0.4 mg [Flomax 0.4 MG] 0.4 mg PO 1700 03/31/14 [History] Albuterol Sulfate [Proair Hfa] 2 puff IH Q4H PRN PRN 09/06/16 [History] Cholecalciferol (Vitamin D3) [Vitamin D3] 1,000 unit PO DAILY 09/06/16 [History] Acetaminophen 650 mg PO Q6H PRN PRN 06/19/19 [History] Ascorbic Acid [Fruit C-500] 500 mg PO DAILY 06/19/19 [History] Atorvastatin Calcium 40 mg PO HS 06/19/19 [History] Calcium Phosphate Trib/Vit D3 [Calcium-Vitamin D3 Gummies] 1 tab PO TID [History] Loratadine 10 mg PO DAILY 06/19/19 [History] Maltodextrin/Xanthan Gum [Thicken Up Clear Powder Packet] 1 packet PO ACHS 06/19 [History] Mirabegron [Myrbetriq] 50 mg PO DAILY 06/22/19 [History] Hx Tetanus, Diphtheria Vaccination/Date Given: Yes Hx Influenza Vaccination/Date Given: Yes Hx Pneumococcal Vaccination/Date Given: Yes - Past Medical History Pertinent Past Medical History: Yes Neurological History: Seizures, Other ENT History: No Pertinent History Cardiac History: High Cholesterol Respiratory History: No Pertinent History, Asthma, COPD Endocrine Medical History: No Pertinent History, Diabetes Type II Musculoskeletal History: No Pertinent History, Osteoarthritis GI Medical History: No Pertinent History, Hernia History: No Pertinent History, Other Psycho-Social History: Depression, Other Male Reproductive Disorders: No Pertinent History Other Medical History: PATIENT SUSTAINED HEAD INJURY AT AGE [age] WITH RESIDUAL MOTOR AND COGNITIVE DEFICITS BUT PATIENT ALERT, ORIENTED X 3 AND ABLE TO FOLLOW 2 STEP COMMANDS WITH OCCASIONAL REPETITION. MILD ATAXIA IN GAIT AND UE HAS BEEN PRESENT SINCE HEAD INJURY. - Past Surgical History Past Surgical History: Yes Neuro Surgical History: No Pertinent History Cardiac: No Pertinent History Respiratory: No Pertinent History Gastrointestinal: Hernia Repair, Other Genitourinary: No Pertinent History Musculoskeletal: No Pertinent History Male Surgical History: No Pertinent History Other Surgical History: right side inguinal hernia surgery 1987. nose operation 1991. ABDOMINAL CYST. 2 back surgeries this year - Social History Smoking Status: Never smoker How long have you smoked: UNSURE Exposure to second hand smoke: No Drug Use: none Patient Lives Alone: No - Review of Systems Constitutional: No Symptoms, No Fever, No Chills Eyes: No Symptoms Ears, Nose, & Throat: No Symptoms Respiratory: No Symptoms, No Cough, No Dyspnea Cardiac: No Symptoms, No Chest Pain, No Edema, No Syncope Abdominal/Gastrointestinal: No Symptoms, No Abdominal Pain, No Nausea, No Vomiting, No Diarrhea Genitourinary Symptoms: No Symptoms, No Dysuria Musculoskeletal: No Symptoms, No Back Pain, No Neck Pain Skin: No Symptoms, No Rash Neurological: No Symptoms, No Dizziness, No Focal Weakness, No Sensory Changes Psychological: No Symptoms Endocrine: No Symptoms Hematologic/Lymphatic: No Symptoms Immunological/Allergic: No Symptoms All Other Systems: Reviewed and Negative - Nursing Vital Signs Nursing Vital Signs: Initial Vital Signs Temperature 100 F 01/02/20 11:31 Pulse Rate 75 01/02/20 11:31 Respiratory Rate 16 01/02/20 11:31 Blood Pressure 142/90 01/02/20 11:31 O2 Sat by Pulse Oximetry 96 01/02/20 11:31 Pain Scale Pain Intensity 0 - Physical Exam General Appearance: no apparent distress Eyes, Ears, Nose, Throat Exam: normal ENT inspection, moist mucous membranes Neck Exam: normal inspection, non-tender, supple Respiratory Exam: normal breath sounds, lungs clear, No respiratory distress Cardiovascular Exam: regular rate/rhythm, No edema Gastrointestinal/Abdominal Exam: soft, No tenderness, No distention Extremities Exam: normal inspection, normal range of motion, No evidence of injury, No edema Current Suicidality: denies suicide plan Neurological Exam: alert, monogram technician II-XII nml as tested, oriented x 3 Appearance: appropriate appearance Behavior/Eye Contact/Speech: alert & cooperative Thoughts/Hallucinations: normal thought pattern Skin Exam: normal color, warm, dry, No rash SpO2 Interpretation: normal SpO2: 96 O2 Delivery: Room Air - Course Nursing assessment & vital signs reviewed: Yes - Progress Progress: improved Progress Note: 01/02/20 11:39 Patient reassessed. He is calm he is cooperative he denies homicidal suicidal ideation. Counseled pt/family regarding: diagnosis, need for follow-up - Departure Departure Disposition: Home Clinical Impression: Feeling angry Condition: Stable Critical Care Time: No Referrals: CUONG BROWN [Primary Care Provider] - Instructions: Tips on Helping Change Behavior Additional Instructions: Discharge/Care Plan HANS RIOS was seen on 01/02/20 in the Emergency Room. The patient was counseled regarding Diagnosis,Lab results, Imaging studies, need for follow up and when to return to the Emergency Room. Prescriptions given: Discharge Note I have spoken with the patient and/or caregivers. I have explained the patient' s condition, diagnosis and treatment plan based on the information available to me at this time. I have answered the patient's and/or caregiver's questions and addressed any concerns. The patient and/or caregivers have as good understanding of the patient's diagnosis, condition and treatment plan as can be expected at this point. The vital signs have been stable. The patient's condition is stable and appropriate for discharge from the emergency department. The patient will pursue further outpatient evaluation with the primary care physician or other designated or consulting physician as outlined in the discharge instructions. The patient and/or caregivers are agreeable to this plan of care and follow-up instructions have been explained in detail. The patient and/or caregivers have received these instruction. The patient/and or caregivers are aware that any significant change in condition or worsening of symptoms should prompt an immediate return to this or the closest emergency department or call 911.
== END 2020-01-02 12:38 | disposition home or self-care (01) ==
LOC: ED 11:24
DX: R45.4 Irritability and anger (principal); G40.909 Epilepsy, unspecified, not intractable, without status epilepticus; E78.00 Pure hypercholesterolemia, unspecified; J45.909 Unspecified asthma, uncomplicated; J44.9 Chronic obstructive pulmonary disease, unspecified; E11.9 Type 2 diabetes mellitus without complications; M19.90 Unspecified osteoarthritis, unspecified site; F32.9 Major depressive disorder, single episode, unspecified; Z79.899 Other long term (current) drug therapy
CPT/HCPCS: 99284

== ENCOUNTER 2020-07-17 08:54 | Day surgery (SDC) | payer MEDICARE ==
--- NOTE | 2020-07-17 07:54 | HP ---
DATE OF SURGERY: 07/17/2020 HISTORY OF PRESENT ILLNESS: The patient is a 65 year old with no bloody stools, no prior colonoscopy, no change in bowel movements and no pain. Family history negative for colon cancer. He did have positive Cologuard. He is in need of screening colonoscopy. PAST MEDICAL HISTORY: Chronic obstructive pulmonary disease. Seizure disorder. Hyperlipidemia. PAST SURGICAL HISTORY: Back surgery a couple times in the past. Chronic ulcer removed in the past. MEDICATIONS: Advair, Albuterol, ascorbic acid, aspirin, calcium, vitamin D, complete multivitamin, Cymbalta, Depakote, epinephrine, gabapentin, Jardiance, Lantus, Lipitor, loratadine, mirabegron, MiraLAX, Mucinex, omeprazole, primidone, ProAir HFA, Spiriva, Tamsulosin, vitamin D3. ALLERGIES: NKDA. ADHESIVE TAP. BEE VENOM. FAMILY HISTORY: Negative for colon cancer. SOCIAL HISTORY: No alcohol abuse. REVIEW OF SYSTEMS: Fourteen systems reviewed pertinent for as noted above and per admission assessment. PHYSICAL EXAMINATION: GENERAL: No acute distress. HEENT: Sclerae nonicteric. NECK: No JVD. CHEST: Equal excursion, nonlabored breathing. CVS: Regular rate and rhythm. ABDOMEN: Soft, nontender. EXTREMITIES: No significant edema. NEURO: Alert, oriented, moving extremities symmetrically. No gross motor deficits noted. RECTAL: Deferred timed to endoscopy exam. PSYCH: Appropriate mood and affect. IMPRESSION: No prior colonoscopy. He is in need of screening colonoscopy. He had a positive Cologuard. He was shown the risk sheet and explained the procedure in detail but not limited to bleeding or infection, risk of bowel injury or perforation possibly requiring open procedure, risk of missed or nondiagnosis or incomplete exam possibly requiring barium enema, other studies or procedures, general risk of anesthesia or sedation, risk of bowel prep but not limited to. Consent obtained. Will proceed with outpatient colonoscopy under MAC anesthesia.
[~2020-07-17 08:54] MED LIST: Lactated Ringers 1,000 ML IV ONE; Lactated Ringers 1,000 ML IV SCH
[2020-07-17] MEDS ORDERED: Xopenex 1.25 MG/0.5 ML UD NEBULE IH ONE (10:25)
[2020-07-17] MEDS ORDERED: Sodium Chloride 3 ML UD NEBULES IH SCH (10:30)
[2020-07-17 10:38] VITALS: O2SAT 97
[2020-07-17] MEDS ORDERED: DIPRIVAN 200 MG/20 ML IV ONE (11:29)
[2020-07-17 13:11] VITALS: BP 119/75; PULSE 64
--- NOTE | 2020-07-18 08:39 | OP ---
SURGERY DATE/TIME: 07/17/2020 1134 PREOPERATIVE DIAGNOSIS: Need for screening colonoscopy. No prior colonoscopy. Patient with positive Cologuard. POSTOPERATIVE DIAGNOSES: 1) Fair but limited prep with large amount of liquidy stool obstructing colon exam. 2) A very tortuous colon. 3) ASA Class III. 4) Withdrawal time eight minutes. 5) Transverse colon polyp. PROCEDURES: 1) Colonoscopy to ascending colon (tortuosity of colon would not allow passage to the end along with the patient's limited prep quality). 2) Hot snare polypectomy transverse colon polyps. SURGEON: Dr. Royce Man. ANESTHESIA: MAC. ESTIMATED BLOOD LOSS: Minimal. INDICATIONS: As noted above. Risks and benefits explained in detail but not limited to and consent obtained. DESCRIPTION OF PROCEDURE AND FINDINGS: The patient is taken to the operating room. MAC anesthesia introduced. After official time out and no disagreement with planned procedure digital rectal exam did not reveal any rectal masses. He did have some small internal and external hemorrhoids. Video colonoscope inserted and passed up the very tortuous sigmoid, descending, transverse and ascending colon. With positioning on his back, had two different staff members pushing on the abdomen, the scope could only reach the transverse colon given tortuosity and a very limited fair prep with a large amount of liquidy stool that required copious amount of liters of fluid suctioned through the colon. Again as we were out of length of scope no other redundant loops could be reduced at this time, it was felt to be best to go ahead and order contrast barium enema this is the last few centimeters of the colon to rule out any other etiology. Otherwise the scope was slowly and carefully withdrawn over the next eight minutes. ASA III. There was a 4 or 5 mm polyp in transverse colon removed with hot snare polypectomy with brief bursts of cautery. Good hemostasis noted. There were no signs of any other large polyps, masses or obstructing lesions throughout the colon. Again, the prep did limit the exam for very small lesions. The patient tolerated the procedure well. I discussed findings with his family out in the waiting area. Again, will order air contrast barium enema to see the cecal area better. I will see him back in the office.
== END 2020-07-17 13:20 | disposition home or self-care (01) ==
LOC: SDC 08:54
PROVIDERS: ATTEND Surgery
DX: Z12.11 Encounter for screening for malignant neoplasm of colon (principal); R19.5 Other fecal abnormalities; D12.3 Benign neoplasm of transverse colon; K64.4 Residual hemorrhoidal skin tags; K64.8 Other hemorrhoids; J44.9 Chronic obstructive pulmonary disease, unspecified; E78.5 Hyperlipidemia, unspecified; G40.909 Epilepsy, unspecified, not intractable, without status epilepticus; E11.9 Type 2 diabetes mellitus without complications; Z79.4 Long term (current) use of insulin
CPT/HCPCS: 82947; 94640; J2704; A9270-GY

== ENCOUNTER 2020-10-03 17:54 | Inpatient (IN) | payer MEDICARE ==
[2020-10-03] MEDS ORDERED: TYLENOL 325 MG PO STA (17:57)
[2020-10-03] MEDS ORDERED: TYLENOL EXTRA STRENGTH 500 MG ONE (17:57)
[2020-10-03 18:35] LABS: Absolute Neutrophil Ct (ANC) 6.85 (1.4-6.9); BASOPHIL % 0.1 % (0.0-0.4); Basophil (Absolute #) 0.01 (0-0.4); Eosinophil % 0.6 % (0.00-5.0); Eosinophil (Absolute #) 0.08 (0-0.5); Hematocrit 38.7 % (42-50); Lymphocyte (Absolute #) 5.87 (1.0-4.6); Lymphocytes % 43.3 % (24.0-44.0); Mean Cell Volume 95.6 fl (78-100); Mean Corpuscular Hemoglobin 29.6 pg (26-32); Mean Platelet Volume 10.4 fl (7.5-11.0); Monocyte (Absolute #) 0.76 (0.0-1.3); Monocytes % 5.6 % (0.0-12.0); Neutrophil % 50.4 % (36.0-66.0); Platelet Count 146 K/mm3 (150-450); Red Blood Count 4.05 M/mm3 (4.1-5.6); Red Cell Distribution Width 14.1 % (11.5-14.0); White Blood Count 13.6 K/mm3 (4.0-10.5)
[2020-10-03] MEDS ORDERED: TYLENOL EXTRA STRENGTH 500 MG PO PRN (18:39)
[2020-10-03 18:42] LABS: Appearance CLEAR (CLEAR); Bilirubin NEGATIVE (NEGATIVE); Blood NEGATIVE Ery/ul (0-5); Glucose >=500 mg/dL (NEGATIVE); Ketones TRACE (NEGATIVE); Leukocyte Esterase NEGATIVE (NEGATIVE); Nitrite NEGATIVE (NEGATIVE); Protein,Urine Dip NEGATIVE (Negative); Specific Gravity 1.025 (1.005-1.025); Urobilinogen 2 mg/dL (0-1)
[2020-10-03 18:47] LABS: ALBUMIN 3.7 g/dL (3.5-5.0); ALKALINE PHOSPHATASE 55 U/L (38-126); BLOOD UREA NITROGEN 17 mg/dL (9-20); CHLORIDE 97 mmol/L (98-107); Carbon Dioxide 32 mmol/L (22-30); Creatinine 1 0.81 mg/dL (0.66-1.25); EST GLOMERULAR FILTRATION RATE > 60.0 ML/MIN; Glucose 103 mg/dL (74-106); Potassium 3.8 mmol/L (3.5-5.1); SGOT/AST 40 U/L (17-59); SGPT/ALT 23 U/L (0-50); SODIUM 137 mmol/L (137-145); Total Protein 6.7 g/dL (6.3-8.2)
[2020-10-03 18:54] LABS: Bacteria NONE SEEN /HPF (NEGATIVE)
[2020-10-03 19:10] LABS: INFLUENZA A NEGATIVE (NEGATIVE); INFLUENZA B NEGATIVE (NEGATIVE)
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
[2020-10-03] MEDS ORDERED: Zithromax 500 MG/ 250 ML NaCl Premix 500 MG/250 ML IVPB IV STA (19:37)
[2020-10-03] MEDS ORDERED: ROCEPHIN 1 Gm-D5w 50 ml Bag** 1 G/50 ML IVPB IV STA (19:37)
[2020-10-03] MEDS ORDERED: ROCEPHIN 1 Gm-D5w 50 ml Bag** 1 G/50 ML IVPB IV ONE (19:38)
[2020-10-03] MEDS ORDERED: Zithromax 500 MG/ 250 ML NaCl Premix 500 MG/250 ML IVPB IV ONE (19:38)
[2020-10-03 21:37] LABS: INFLUENZA A NEGATIVE (NEGATIVE); INFLUENZA B NEGATIVE (NEGATIVE); RESPIRATORY SYNCTIAL VIRUS NEGATIVE (Negative)
[2020-10-03] MEDS ORDERED: TYLENOL 325 MG PO PRN (21:44)
[2020-10-03] MEDS: DUONEB 0.5-3 MG/3 ml Neb IH SCH (23:55)
[2020-10-04] MEDS ORDERED: NEURONTIN 300 MG ONE (00:33)
[2020-10-04] MEDS ORDERED: ZOCOR 20MG ONE (00:34)
[2020-10-04] MEDS ORDERED: MYSOLINE 50MG ONE (00:34)
[2020-10-04] MEDS ORDERED: Flomax 0.4 MG ONE (00:34)
[2020-10-04] MEDS: Sodium Chloride 0.9% 1000 ML 1,000 ML IV SCH ×3 (00:46→23:00)
[2020-10-04] MEDS ORDERED: NEURONTIN 300 MG PO ONE (01:00)
[2020-10-04] MEDS ORDERED: Flomax 0.4 MG PO ONE (01:00)
[2020-10-04] MEDS ORDERED: MYSOLINE 50MG PO ONE (01:00)
[2020-10-04] MEDS ORDERED: ZOCOR 20MG PO ONE (01:00)
[2020-10-04] MEDS ORDERED: MOTRIN 600 MG PO PRN (03:33)
[2020-10-04] MEDS: DUONEB 0.5-3 MG/3 ml Neb IH SCH ×5 (03:44→19:21)
[2020-10-04 05:40] LABS: Hematocrit 36.4 % (42-50); Hemoglobin 11.3 gm/dl (12.5-18.0); Mean Cell Volume 96.3 fl (78-100); Mean Corpuscular Hemoglobin 29.9 pg (26-32); Mean Platelet Volume 9.9 fl (7.5-11.0); Platelet Count 147 K/mm3 (150-450); Red Blood Count 3.78 M/mm3 (4.1-5.6); Red Cell Distribution Width 14.6 % (11.5-14.0); White Blood Count 19.3 K/mm3 (4.0-10.5)
[2020-10-04 05:52] LABS: ALBUMIN 3.5 g/dL (3.5-5.0); ALKALINE PHOSPHATASE 46 U/L (38-126); ANION GAP 9.4 MEQ/L (5-15); BLOOD UREA NITROGEN 16 mg/dL (9-20); CHLORIDE 101 mmol/L (98-107); Calcium 8.7 mg/dL (8.4-10.2); Carbon Dioxide 30 mmol/L (22-30); Creatinine 1 0.71 mg/dL (0.66-1.25); EST GLOMERULAR FILTRATION RATE > 60.0 ML/MIN; Glucose 110 mg/dL (74-106); Potassium 3.8 mmol/L (3.5-5.1); SGOT/AST 33 U/L (17-59); SGPT/ALT 23 U/L (0-50); SODIUM 136 mmol/L (137-145); Total Protein 6.2 g/dL (6.3-8.2)
[2020-10-04] MEDS ORDERED: Advair Hfa 115/21 Common canister IH SCH (07:00)
[2020-10-04 07:39] LABS: ANISOCYTOSIS 1+; ATYPICAL LYMPHS 2 %; Lymphocytes 53 % (24-44); Monocyte 6 % (0.0-12.0); Neutrophils 39 % (36.-66.); Platelet Estimate NORMAL (NORMAL); Total Cells Counted 100
--- NOTE | 2020-10-04 08:40 | XRAY ---
Indication: Fever, weakness, and seizure. Multiple contiguous axial images obtained through the head without contrast. Comparison: November 14, 2017. Ventriculosulcal pattern appears symmetric with stable cerebellar atrophy. No acute intracranial hemorrhage, abnormal extra-axial fluid collection, or mass effect. Fourth ventricle is midline without hydrocephalus. Bony calvarium intact. Minimal mucosal thickening both ethmoid sinuses. Visualized mastoid air cells are clear. Impression: 1. Stable cerebellar atrophy. 2. No new or acute intracranial abnormalities. 3. Incidental paranasal sinus disease.
--- NOTE | 2020-10-04 08:41 | XRAY ---
Indication: Fever and weakness. Multiple contiguous images obtained through the chest without contrast. Comparison: September 06, 2016. Study again slightly degraded by respiration artifact. There is again bilateral mid to lower lung airspace disease with multifocal consolidations more than before. No suspicious pulmonary mass or effusion. Heart is not enlarged. Aorta is normal in course and caliber again with ascending aortic calcifications. There are again small matted mediastinal lymph nodes, largest subcarinal measuring 1.6 x 2.4 cm presumed reactive. Bony thorax intact again with mild degenerative changes throughout the spine. Limited upper abdomen unremarkable. Impression: 1. Worsening bilateral mid to lower lung airspace disease with multifocal consolidations. Rule out aspiration pneumonia. 2. Small mediastinal lymph nodes presumed reactive.
[2020-10-04] MEDS ORDERED: DULAGLUTIDE 1.5 MG SQ SCH (09:00)
[2020-10-04] MEDS ORDERED: EPINEPHRINE 0.3 MG IM SCH (09:00)
[2020-10-04] MEDS ORDERED: Miralax Powder 17GM PACKET PO PRN (09:00)
[2020-10-04] MEDS ORDERED: MUCINEX DM 600/30MG PO PRN (09:00)
[2020-10-04] MEDS ORDERED: EPINEPHRINE 1MG/ML AMP IM PRN (09:35)
[2020-10-04] MEDS ORDERED: MEDICATION INTERVENTION PO SCH (09:45)
[2020-10-04] MEDS ORDERED: MEDICATION INTERVENTION MC SCH (09:45)
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
[2020-10-04] MEDS ORDERED: ASCORBIC ACID 500 MG PO SCH (10:00)
[2020-10-04] MEDS ORDERED: VIT D3 PO SCH (10:00)
[2020-10-04] MEDS ORDERED: CALCIUM PHOSPHATE TRIB PO SCH (10:00)
[2020-10-04] MEDS ORDERED: PROTONIX 40 MG IV IV SCH (10:00)
[2020-10-04] MEDS ORDERED: NON-FORMULARY ITEM (Divalproex Sodium [Depakote] 1,000 MG) PO SCH (10:00)
[2020-10-04] MEDS ORDERED: Flomax 0.4 MG PO SCH (10:00)
[2020-10-04] MEDS ORDERED: NON-FORMULARY ITEM (Omeprazole [Omeprazole] 40 MG) PO SCH (10:00)
[2020-10-04] MEDS ORDERED: Spiriva 18 Mcg/Cap Inhaler IH SCH (10:00)
[2020-10-04] MEDS ORDERED: NON-FORMULARY ITEM (Empagliflozin [Jardiance] 10 MG) PO SCH (10:00)
[2020-10-04] MEDS ORDERED: Lantus Insulin SQ SCH (10:00)
[2020-10-04] MEDS ORDERED: NON-FORMULARY ITEM (Gabapentin [Gabapentin] 600 MG) PO SCH (10:00)
[2020-10-04] MEDS ORDERED: NEURONTIN 300 MG PO SCH (10:00)
[2020-10-04] MEDS ORDERED: MYSOLINE 50MG PO SCH (10:00)
[2020-10-04] MEDS ORDERED: NON-FORMULARY ITEM (Cholecalciferol (Vitamin D3) [Vitamin D3] 1,000 UNIT) PO SCH (10:00)
[2020-10-04] MEDS ORDERED: NON-FORMULARY ITEM (Multivitamin [Multivitamins] 1 EACH) PO SCH (10:00)
[2020-10-04] MEDS: ENOXAPARIN SODIUM SQ SCH (11:01)
[2020-10-04] MEDS: Cymbalta 30 MG Capsule PO SCH ×2 (11:02→20:58)
[2020-10-04] MEDS: ECOTRIN 81 MG PO SCH (11:02)
[2020-10-04] MEDS: Vitamin C 500 MG PO SCH (11:02)
[2020-10-04] MEDS: NEURONTIN 300 MG PO SCH ×3 (11:02→20:56)
[2020-10-04] MEDS: Calcium 500MG W/Vit D Tablet PO SCH ×3 (11:02→20:58)
[2020-10-04] MEDS: VITAMIN D PO SCH (11:03)
[2020-10-04] MEDS: MYSOLINE 50MG PO SCH ×3 (11:03→20:56)
[2020-10-04] MEDS: MYRBETRIQ PO SCH ×2 (11:03→20:59)
[2020-10-04] MEDS: THERAGRAN MULTIVITAMIN PO SCH (11:03)
[2020-10-04] MEDS: CLARITIN 10 MG PO SCH (11:03)
[2020-10-04] MEDS: Protonix 40MG Tablet PO SCH ×2 (11:03→20:59)
[2020-10-04] MEDS: PATIENT OWN MEDICATION SQ SCH (11:06)
[2020-10-04] MEDS ORDERED: [UNRECOGNIZED DRUG - OTHER] PO SCH (11:30)
[2020-10-04] MEDS: Zosyn 3.375 GM Vial 3.375 GM in Sodium Chloride 100ML MINI-BAG PLUS 100 ML IV SCH ×3 (13:01→23:00)
[2020-10-04] MEDS: Lantus Insulin SQ SCH (18:07)
[2020-10-04] MEDS: Flomax 0.4 MG PO SCH (20:58)
[2020-10-04] MEDS: ZOCOR 20MG PO SCH (20:59)
[2020-10-04] MEDS ORDERED: ROCEPHIN 1 Gm-D5w 50 ml Bag** 1 G/50 ML IVPB IV SCH (22:00)
[2020-10-04] MEDS ORDERED: Zithromax 500 MG/ 250 ML NaCl Premix 500 MG/250 ML IVPB IV SCH (22:00)
[2020-10-04] MEDS ORDERED: LIPITOR 40MG PO SCH ×2 (22:00)
[2020-10-04] MEDS ORDERED: ZOCOR 20MG PO SCH (22:00)
[2020-10-05] MEDS: Zosyn 3.375 GM Vial 3.375 GM in Sodium Chloride 100ML MINI-BAG PLUS 100 ML IV SCH ×3 (05:13→17:17)
[2020-10-05] MEDS: DUONEB 0.5-3 MG/3 ml Neb IH SCH ×4 (06:56→19:30)
[2020-10-05] MEDS: NEURONTIN 300 MG PO SCH ×3 (09:39→21:24)
[2020-10-05] MEDS: Vitamin C 500 MG PO SCH (09:39)
[2020-10-05] MEDS: CLARITIN 10 MG PO SCH (09:39)
[2020-10-05] MEDS: Calcium 500MG W/Vit D Tablet PO SCH ×3 (09:39→21:24)
[2020-10-05] MEDS: Cymbalta 30 MG Capsule PO SCH ×2 (09:39→21:24)
[2020-10-05] MEDS: ENOXAPARIN SODIUM SQ SCH (09:39)
[2020-10-05] MEDS: ECOTRIN 81 MG PO SCH (09:39)
[2020-10-05] MEDS: MYRBETRIQ PO SCH ×2 (09:39→21:25)
[2020-10-05] MEDS: MYSOLINE 50MG PO SCH ×3 (09:39→21:24)
[2020-10-05] MEDS: Protonix 40MG Tablet PO SCH ×2 (09:39→21:24)
[2020-10-05] MEDS: VITAMIN D PO SCH (09:39)
[2020-10-05] MEDS: THERAGRAN MULTIVITAMIN PO SCH (09:39)
[2020-10-05] MEDS: Sodium Chloride 0.9% 1000 ML 1,000 ML IV SCH ×2 (10:00→21:25)
[2020-10-05] MEDS ORDERED: Tessalon Perles 100 MG PO PRN (10:01)
--- NOTE | 2020-10-05 10:10 | XRAY ---
Indication: Lung "crackles". Comparison: January 04, 2020. Portable chest demonstrates new bibasilar air space disease as seen on CT chest 2 days ago. Remaining heart and upper lungs unremarkable. Bony thorax intact.
[2020-10-05 11:29] LABS: Absolute Neutrophil Ct (ANC) 4.76 (1.4-6.9); BASOPHIL % 0.1 % (0.0-0.4); Basophil (Absolute #) 0.01 (0-0.4); Eosinophil % 0.7 % (0.00-5.0); Eosinophil (Absolute #) 0.08 (0-0.5); Lymphocyte (Absolute #) 5.45 (1.0-4.6); Lymphocytes % 50.4 % (24.0-44.0); Mean Cell Volume 97.8 fl (78-100); Mean Corpuscular Hemoglobin 29.9 pg (26-32); Mean Corpuscular Hgb Concent. 30.6 g/dl (32-36); Mean Platelet Volume 10.1 fl (7.5-11.0); Monocyte (Absolute #) 0.52 (0.0-1.3); Monocytes % 4.8 % (0.0-12.0); Platelet Count 147 K/mm3 (150-450); Red Blood Count 3.68 M/mm3 (4.1-5.6); Red Cell Distribution Width 14.4 % (11.5-14.0); White Blood Count 10.8 K/mm3 (4.0-10.5)
[2020-10-05 11:47] LABS: ALBUMIN 3.5 g/dL (3.5-5.0); ALKALINE PHOSPHATASE 44 U/L (38-126); ANION GAP 11.9 MEQ/L (5-15); BLOOD UREA NITROGEN 14 mg/dL (9-20); CHLORIDE 102 mmol/L (98-107); Carbon Dioxide 27 mmol/L (22-30); Creatinine 1 0.72 mg/dL (0.66-1.25); EST GLOMERULAR FILTRATION RATE > 60.0 ML/MIN; Glucose 129 mg/dL (74-106); NT PRO BNP 307 pg/mL (0-900); Potassium 3.9 mmol/L (3.5-5.1); SGOT/AST 32 U/L (17-59); SGPT/ALT 21 U/L (0-50); SODIUM 137 mmol/L (137-145); Total Protein 6.3 g/dL (6.3-8.2)
[2020-10-05] MEDS: Lantus Insulin SQ SCH (17:17)
[2020-10-05] MEDS: Flomax 0.4 MG PO SCH (21:24)
[2020-10-05] MEDS: ZOCOR 20MG PO SCH (21:24)
[2020-10-06] MEDS: Zosyn 3.375 GM Vial 3.375 GM in Sodium Chloride 100ML MINI-BAG PLUS 100 ML IV SCH ×4 (00:23→18:26)
--- NOTE | 2020-10-06 00:36 | PCM.NOTE ---
Date and Time: 10/05/20829 Subjective Assessment: Patient seen and examined this am. Patient is a limited historian due to hx of TBI. He reports that he feels better than when he first was brought to the hospital. He denies chest pain or SOB. Patient has mild cough. - Review of Systems Constitutional: No Fever, No Chills Respiratory: Cough Cardiac: No Chest Pain Abdominal/Gastrointestinal: No Abdominal Pain, No Nausea, No Vomiting, No Di arrhea, No Constipation Genitourinary Symptoms: Other (Souza cath ) Neurological: Seizure, Other (R sided weakness) All Other Systems: Unable due to condition (Limited ROS due to patient's hx of TBI) Objective Exam General Appearance: mild distress, alert Neurologic Exam: alert, cooperative, motor weakness (R sided), other (Oriented to person and place) Skin Exam: normal color, warm, dry, No rash Eye Exam: eyes nml inspection, No scleral icterus Ears, Nose, Throat Exam: moist mucous membranes Respiratory Exam: diminished breath sounds, crackles/rales, wheezing, No normal breath sounds, No lungs clear, No respiratory distress Cardiovascular Exam: regular rate/rhythm, normal heart sounds, No murmur, No friction rub, No gallop Gastrointestinal/Abdomen Exam: soft, normal bowel sounds, No tenderness, No distention, No guarding, No rebound Extremity Exam: No pedal edema, No tenderness Male Genitalia Exam: deferred, other (Souza Cath) Rectal Exam: deferred OBJECTIVE DATA Vital Signs: Vital Signs - 24 hr Temp Pulse Resp BP Pulse Ox 10/05/20 20:00 97.8 F 82 18 151/77 97 10/05/20 19:32 76 17 96 10/05/20 16:00 97.7 F 81 16 139/64 98 10/05/20 14:52 77 16 97 10/05/20 12:00 98.8 F 78 16 145/65 95 10/05/20 10:54 76 16 96 10/05/20 08:00 97.6 F 79 16 133/63 93 L 10/05/20 06:57 79 16 93 L 10/05/20 04:00 98.2 F 79 18 143/61 92 L Oxygen-Last 24 hours Oxygen Flowrate (L/min)-RT 3 Oxygen Flowrate (L/min)-RT 3 Pain Assessment - Last Documented Pain Intensity 0 Intake and Output: Intake & Output 10/03/20 10/04/20 10/05/20 10/06/20 11:59 11:59 11:59 11:59 Intake Total 1162 3787 968 Output Total 900 2950 1150 Balance 262 837 -182 Weight 75.9 kg Lab Results: Lab Results-Last 24 Hours 10/05/20 10/05/20 10/05/20 Range/Units 07:01 11:19 11:20 WBC (4.0-10.5) K/mm3 RBC (4.1-5.6) M/mm3 Hgb (12.5-18.0) gm/dl Hct (42-50) % MCV (78-100) fl MCH (26-32) pg MCHC (32-36) g/dl RDW (11.5-14.0) % Plt Count (150-450) K/mm3 MPV (7.5-11.0) fl Gran % (36.0-66.0) % Eos # (Auto) (0-0.5) Absolute Lymphs (auto) (1.0-4.6) Absolute Monos (auto) (0.0-1.3) Lymphocytes % (24.0-44.0) % Monocytes % (0.0-12.0) % Eosinophils % (0.00-5.0) % Basophils % (0.0-0.4) % Absolute Granulocytes (1.4-6.9) Basophils # (0-0.4) Sodium 137 (137-145) mmol/L Potassium 3.9 (3.5-5.1) mmol/L Chloride 102 (98-107) mmol/L Carbon Dioxide 27 (22-30) mmol/L Anion Gap 11.9 (5-15) MEQ/L BUN 14 (9-20) mg/dL Creatinine 0.72 (0.66-1.25) mg/dL Estimated GFR > 60.0 ML/MIN Glucose 129 H (74-106) mg/dL POC Glucometer 101 126 H (74 to 106) mg/dL Calcium 9.0 (8.4-10.2) mg/dL Total Bilirubin 0.20 (0.2-1.3) mg/dL AST 32 (17-59) U/L ALT 21 (0-50) U/L Alkaline Phosphatase 44 (38-126) U/L NT-Pro-B Natriuret Pep 307 (0-900) pg/mL Serum Total Protein 6.3 (6.3-8.2) g/dL Albumin 3.5 (3.5-5.0) g/dL 10/05/20 10/05/20 10/05/20 Range/Units 11:30 16:17 20:44 WBC 10.8 H (4.0-10.5) K/mm3 RBC 3.68 L (4.1-5.6) M/mm3 Hgb 11.0 L (12.5-18.0) gm/dl Hct 36.0 L (42-50) % MCV 97.8 (78-100) fl MCH 29.9 (26-32) pg MCHC 30.6 L (32-36) g/dl RDW 14.4 H (11.5-14.0) % Plt Count 147 L (150-450) K/mm3 MPV 10.1 (7.5-11.0) fl Gran % 44.0 (36.0-66.0) % Eos # (Auto) 0.08 (0-0.5) Absolute Lymphs (auto) 5.45 H (1.0-4.6) Absolute Monos (auto) 0.52 (0.0-1.3) Lymphocytes % 50.4 H (24.0-44.0) % Monocytes % 4.8 (0.0-12.0) % Eosinophils % 0.7 (0.00-5.0) % Basophils % 0.1 (0.0-0.4) % Absolute Granulocytes 4.76 (1.4-6.9) Basophils # 0.01 (0-0.4) Sodium (137-145) mmol/L Potassium (3.5-5.1) mmol/L Chloride (98-107) mmol/L Carbon Dioxide (22-30) mmol/L Anion Gap (5-15) MEQ/L BUN (9-20) mg/dL Creatinine (0.66-1.25) mg/dL Estimated GFR ML/MIN Glucose (74-106) mg/dL POC Glucometer 130 H 131 H (74 to 106) mg/dL Calcium (8.4-10.2) mg/dL Total Bilirubin (0.2-1.3) mg/dL AST (17-59) U/L ALT (0-50) U/L Alkaline Phosphatase (38-126) U/L NT-Pro-B Natriuret Pep (0-900) pg/mL Serum Total Protein (6.3-8.2) g/dL Albumin (3.5-5.0) g/dL Radiology Exams: Radiology Procedures Category Date Time Status CHEST 1 VIEW (PORTABLE) Routine Exams 10/05/20 10:00 Completed Multi-Disciplinary Progress Notes: Multi-Disciplinary Progress Notes 10/05/20 10:15 Case Management Note by Nadege Brand NO CHANGE IN DC PLANS AT THIS TIME- WILL CONTINUE TO FOLLOW Initialized on 10/05/20 10:15 - END OF NOTE Assessment/Plan (1) Bilateral pneumonia Current Visit: Yes Status: Acute Assessment & Plan: Patient had increased WBC count following admission. He was transitioned to zosyn for suspected aspiration pneumonia. Patient's WBC has trended down. Patient had worsening crackles/rales noted on exam this am. Repeat CXR was ordered. He has cough medication and IV antibiotics. Will continue on current antibiotics however patient will need to transition to PO. Plan for DC in the next day or two if patient's symptoms continue to improve Code(s): J18.9 - PNEUMONIA, UNSPECIFIED ORGANISM (2) COPD with exacerbation Current Visit: No Status: Acute Assessment & Plan: Patient is on duonebs IV antibiotics and will be started on IV steroids. Patient is also on mucinex and Tessalon perles. Will consider adding flutter therapy and incentive spirometry Code(s): J44.1 - CHRONIC OBSTRUCTIVE PULMONARY DISEASE W (ACUTE) EXACERBATION (3) Seizure disorder Current Visit: No Status: Chronic Assessment & Plan: Will continue routine home meds. Seizures are related to TBI. Code(s): G40.909 - EPILEPSY, UNSP, NOT INTRACTABLE, WITHOUT STATUS EPILEPTICUS (4) Diabetes mellitus Current Visit: No Status: Chronic Assessment & Plan: Will continue on routine home meds. Code(s): E11.9 - TYPE 2 DIABETES MELLITUS WITHOUT COMPLICATIONS (5) Urinary retention Current Visit: Yes Status: Acute Assessment & Plan: Will continue on routine home meds Code(s): R33.9 - RETENTION OF URINE, UNSPECIFIED (6) Hx of traumatic brain injury Current Visit: Yes Status: Acute Assessment & Plan: Will continue on home meds for sequela related to TBI. Patient may need PT referral for deconditioning Code(s): Z87.820 - PERSONAL HISTORY OF TRAUMATIC BRAIN INJURY
[2020-10-06] MEDS: solu-MEDROL 125 MG IV SCH ×3 (01:00→17:44)
[2020-10-06] MEDS: DUONEB 0.5-3 MG/3 ml Neb IH SCH ×4 (06:51→18:56)
[2020-10-06] MEDS: ENOXAPARIN SODIUM SQ SCH (09:40)
[2020-10-06] MEDS: VITAMIN D PO SCH (09:41)
[2020-10-06] MEDS: Vitamin C 500 MG PO SCH (09:41)
[2020-10-06] MEDS: Cymbalta 30 MG Capsule PO SCH ×2 (09:41→21:55)
[2020-10-06] MEDS: Protonix 40MG Tablet PO SCH ×2 (09:42→21:56)
[2020-10-06] MEDS: MYSOLINE 50MG PO SCH ×3 (09:42→21:55)
[2020-10-06] MEDS: MYRBETRIQ PO SCH ×2 (09:42→21:56)
[2020-10-06] MEDS: ECOTRIN 81 MG PO SCH (09:42)
[2020-10-06] MEDS: THERAGRAN MULTIVITAMIN PO SCH (09:42)
[2020-10-06] MEDS: Calcium 500MG W/Vit D Tablet PO SCH ×3 (09:42→21:55)
[2020-10-06] MEDS: CLARITIN 10 MG PO SCH (09:42)
[2020-10-06] MEDS: NEURONTIN 300 MG PO SCH ×3 (09:42→21:55)
--- NOTE | 2020-10-06 17:44 | PCM.NOTE ---
Date and Time: 10/06/201727 Subjective Assessment: Patient is very pleasant up in recliner enjoying his supper. No complaints but says,"I rattle",points to his chest. Is swallowing ok and has thickened liquids. Objective Exam General Appearance: no apparent distress Neurologic Exam: alert, oriented x 3, cooperative, normal mood/affect Skin Exam: normal color, warm, dry Eye Exam: eyes nml inspection Ears, Nose, Throat Exam: normal ENT inspection Neck Exam: normal inspection Respiratory Exam: rhonchi (scattered and loose) Cardiovascular Exam: regular rate/rhythm Gastrointestinal/Abdomen Exam: soft (nontender) Extremity Exam: other (no pitting edema) OBJECTIVE DATA Vital Signs: Vital Signs - 24 hr Temp Pulse Resp BP Pulse Ox 10/06/20 16:00 97.9 F 83 16 117/86 97 10/06/20 15:10 81 18 93 L 10/06/20 12:01 78 16 91 L 10/06/20 12:00 97.9 F 81 20 163/75 93 L 10/06/20 07:49 98.3 F 80 20 140/58 94 L 10/06/20 06:53 80 16 92 L 10/06/20 04:00 98.4 F 78 16 142/67 91 L 10/06/20 00:00 98.1 F 66 18 173/84 98 10/05/20 20:00 97.8 F 82 18 151/77 97 10/05/20 19:32 76 17 96 Oxygen-Last 24 hours Oxygen Flowrate (L/min)-RT 3 Oxygen Flowrate (L/min)-RT 3 Oxygen Flowrate (L/min)-RT 3 Pain Assessment - Last Documented Pain Intensity 0 Intake and Output: Intake & Output 10/04/20 10/05/20 10/06/20 10/07/20 11:59 11:59 11:59 11:59 Intake Total 1162 3787 3182 Output Total 900 2950 4250 Balance 262 837 -1068 Weight 75.9 kg 75.9 kg Lab Results: Lab Results-Last 24 Hours 10/05/20 10/06/20 10/06/20 Range/Units 20:44 07:02 10:53 POC Glucometer 131 H 156 H 251 H (74 to 106) mg/dL 10/06/20 Range/Units 15:22 POC Glucometer 185 H (74 to 106) mg/dL Radiology Exams: Radiology Procedures Category Date Time Status CHEST 1 VIEW (PORTABLE) Routine Exams 10/05/20 10:00 Completed Multi-Disciplinary Progress Notes: Multi-Disciplinary Progress Notes 10/06/20 14:10 Case Management Note by Nadege Brand S/W SISTER- SHE CONTINUES TO DENY ANY NEW NEEDS REGARDING DC AT THIS TIME. RT ATTEMPTING TO WEAN PATIENT OXYGEN TODAY. PATIENT ONLY WEARS 2L/NC AT HS AT HOME. HE GETS THIS THRU [facility]. ORDER FORM AND INSTRUCTIONS LEFT ON CHART FOR ORDERING HOME OXYGEN IF THIS IS NEEDED AT TIME OF DC OVER THE WEEKEND Initialized on 10/06/20 14:10 - END OF NOTE Assessment/Plan (1) Bilateral pneumonia Current Visit: Yes Status: Acute Assessment & Plan: General appearance looks well but lungs still with scattered ronchi . Is on Zosyn,await AM labs. Code(s): J18.9 - PNEUMONIA, UNSPECIFIED ORGANISM
[2020-10-06] MEDS: Lantus Insulin SQ SCH (17:46)
[2020-10-06] MEDS: ZOCOR 20MG PO SCH (21:54)
[2020-10-06] MEDS: Flomax 0.4 MG PO SCH (21:56)
[2020-10-06] MEDS: HUMALOG SQ PRN (22:03)
[2020-10-07] MEDS: solu-MEDROL 125 MG IV SCH ×3 (00:30→17:11)
[2020-10-07] MEDS: Zosyn 3.375 GM Vial 3.375 GM in Sodium Chloride 100ML MINI-BAG PLUS 100 ML IV SCH ×4 (00:30→17:46)
[2020-10-07 06:14] LABS: Hematocrit 38.5 % (42-50); Mean Cell Volume 95.8 fl (78-100); Mean Corpuscular Hemoglobin 29.9 pg (26-32); Mean Corpuscular Hgb Concent. 31.2 g/dl (32-36); Mean Platelet Volume 10.1 fl (7.5-11.0); Platelet Count 210 K/mm3 (150-450); Red Blood Count 4.02 M/mm3 (4.1-5.6); Red Cell Distribution Width 14.1 % (11.5-14.0); White Blood Count 16.5 K/mm3 (4.0-10.5)
[2020-10-07 06:32] LABS: ALBUMIN 3.9 g/dL (3.5-5.0); ALKALINE PHOSPHATASE 43 U/L (38-126); ANION GAP 13.3 MEQ/L (5-15); BLOOD UREA NITROGEN 17 mg/dL (9-20); CHLORIDE 97 mmol/L (98-107); Calcium 10.1 mg/dL (8.4-10.2); Carbon Dioxide 31 mmol/L (22-30); Creatinine 1 0.86 mg/dL (0.66-1.25); EST GLOMERULAR FILTRATION RATE > 60.0 ML/MIN; Glucose 188 mg/dL (74-106); Potassium 4.3 mmol/L (3.5-5.1); SGOT/AST 28 U/L (17-59); SGPT/ALT 22 U/L (0-50); SODIUM 137 mmol/L (137-145)
[2020-10-07] MEDS ORDERED: PROVENTIL 2.5 MG/3 ML NEB IH SCH (07:00)
[2020-10-07] MEDS: DUONEB 0.5-3 MG/3 ml Neb IH SCH ×4 (07:08→19:01)
[2020-10-07] MEDS: NEURONTIN 300 MG PO SCH ×3 (09:13→21:47)
[2020-10-07] MEDS: VITAMIN D PO SCH (09:13)
[2020-10-07] MEDS: Cymbalta 30 MG Capsule PO SCH ×2 (09:13→21:47)
[2020-10-07] MEDS: Calcium 500MG W/Vit D Tablet PO SCH ×3 (09:13→21:46)
[2020-10-07] MEDS: THERAGRAN MULTIVITAMIN PO SCH (09:13)
[2020-10-07] MEDS: Protonix 40MG Tablet PO SCH ×2 (09:13→21:47)
[2020-10-07] MEDS: ECOTRIN 81 MG PO SCH (09:13)
[2020-10-07] MEDS: CLARITIN 10 MG PO SCH (09:13)
[2020-10-07] MEDS: Vitamin C 500 MG PO SCH (09:13)
[2020-10-07] MEDS: MYSOLINE 50MG PO SCH ×3 (09:14→21:47)
[2020-10-07] MEDS: ENOXAPARIN SODIUM SQ SCH (09:14)
[2020-10-07] MEDS: MYRBETRIQ PO SCH ×2 (09:14→21:47)
--- NOTE | 2020-10-07 09:27 | PCM.NOTE ---
Date and Time: 10/07/20924 Subjective Assessment: patient reports he is feeling better, on zosyn for suspected aspiration. he is requiring oxygen, typically only wears at night at home. Objective Exam General Appearance: no apparent distress Neurologic Exam: alert, oriented x 3, cooperative Respiratory Exam: rhonchi, wheezing Cardiovascular Exam: regular rate/rhythm, normal heart sounds Gastrointestinal/Abdomen Exam: soft, No tenderness, No mass Extremity Exam: normal inspection, normal range of motion OBJECTIVE DATA Vital Signs: Vital Signs - 24 hr Temp Pulse Resp BP Pulse Ox 10/07/20 07:38 98.8 F 71 14 159/77 91 L 10/07/20 07:33 78 20 90 L 10/07/20 04:05 98.2 F 74 18 163/74 92 L 10/06/20 23:37 98.3 F 67 21 164/78 98 10/06/20 20:00 98.0 F 86 22 134/82 99 10/06/20 18:56 87 20 93 L 10/06/20 16:00 97.9 F 83 16 117/86 97 10/06/20 15:10 81 18 93 L 10/06/20 12:01 78 16 91 L 10/06/20 12:00 97.9 F 81 20 163/75 93 L Pain Assessment - Last Documented Pain Intensity 0 Intake and Output: Intake & Output 10/04/20 10/05/20 10/06/20 10/07/20 11:59 11:59 11:59 11:59 Intake Total 1162 3787 3182 1526 Output Total 900 2950 4250 3900 Balance 262 997 -6826 -3780 Weight 75.9 kg 75.9 kg Lab Results: Lab Results-Last 24 Hours 10/06/20 10/06/20 10/06/20 Range/Units 10:53 15:22 21:42 WBC (4.0-10.5) K/mm3 RBC (4.1-5.6) M/mm3 Hgb (12.5-18.0) gm/dl Hct (42-50) % MCV (78-100) fl MCH (26-32) pg MCHC (32-36) g/dl RDW (11.5-14.0) % Plt Count (150-450) K/mm3 MPV (7.5-11.0) fl Sodium (137-145) mmol/L Potassium (3.5-5.1) mmol/L Chloride (98-107) mmol/L Carbon Dioxide (22-30) mmol/L Anion Gap (5-15) MEQ/L BUN (9-20) mg/dL Creatinine (0.66-1.25) mg/dL Estimated GFR ML/MIN Glucose (74-106) mg/dL POC Glucometer 251 H 185 H 214 H (74 to 106) mg/dL Calcium (8.4-10.2) mg/dL Total Bilirubin (0.2-1.3) mg/dL AST (17-59) U/L ALT (0-50) U/L Alkaline Phosphatase (38-126) U/L Serum Total Protein (6.3-8.2) g/dL Albumin (3.5-5.0) g/dL 10/07/20 10/07/20 10/07/20 Range/Units 05:50 05:50 06:53 WBC 16.5 H (4.0-10.5) K/mm3 RBC 4.02 L (4.1-5.6) M/mm3 Hgb 12.0 L (12.5-18.0) gm/dl Hct 38.5 L (42-50) % MCV 95.8 (78-100) fl MCH 29.9 (26-32) pg MCHC 31.2 L (32-36) g/dl RDW 14.1 H (11.5-14.0) % Plt Count 210 D (150-450) K/mm3 MPV 10.1 (7.5-11.0) fl Sodium 137 (137-145) mmol/L Potassium 4.3 (3.5-5.1) mmol/L Chloride 97 L (98-107) mmol/L Carbon Dioxide 31 H (22-30) mmol/L Anion Gap 13.3 (5-15) MEQ/L BUN 17 (9-20) mg/dL Creatinine 0.86 (0.66-1.25) mg/dL Estimated GFR > 60.0 ML/MIN Glucose 188 H (74-106) mg/dL POC Glucometer 158 H (74 to 106) mg/dL Calcium 10.1 (8.4-10.2) mg/dL Total Bilirubin 0.30 (0.2-1.3) mg/dL AST 28 (17-59) U/L ALT 22 (0-50) U/L Alkaline Phosphatase 43 (38-126) U/L Serum Total Protein 7.0 (6.3-8.2) g/dL Albumin 3.9 (3.5-5.0) g/dL Radiology Exams: Radiology Procedures Category Date Time Status CHEST 1 VIEW (PORTABLE) Routine Exams 10/05/20 10:00 Completed Multi-Disciplinary Progress Notes: Multi-Disciplinary Progress Notes 10/06/20 14:10 Case Management Note by Nadege Brand S/W SISTER- SHE CONTINUES TO DENY ANY NEW NEEDS REGARDING DC AT THIS TIME. RT ATTEMPTING TO WEAN PATIENT OXYGEN TODAY. PATIENT ONLY WEARS 2L/NC AT HS AT HOME. HE GETS THIS THRU [facility]. ORDER FORM AND INSTRUCTIONS LEFT ON CHART FOR ORDERING HOME OXYGEN IF THIS IS NEEDED AT TIME OF DC OVER THE WEEKEND Initialized on 10/06/20 14:10 - END OF NOTE Assessment/Plan (1) Aspiration pneumonia Current Visit: No Status: Acute Assessment & Plan: continue zosyn, appears to be improving clinically, increased wbc expected secondary to solu medrol. no swallowing problems currently, on thickened liquis, hx TBI Code(s): J69.0 - PNEUMONITIS DUE TO INHALATION OF FOOD AND VOMIT (2) COPD with exacerbation Current Visit: No Status: Acute Assessment & Plan: improving, still requiring oxygen and audible wheezing on exam, continue steroids, nebs and IV abx Code(s): J44.1 - CHRONIC OBSTRUCTIVE PULMONARY DISEASE W (ACUTE) EXACERBATION (3) Chronic respiratory failure with hypoxia Current Visit: No Status: Acute
[2020-10-07] MEDS ORDERED: Spiriva 18 Mcg/Cap Inhaler IH SCH (10:00)
[2020-10-07 10:13] LABS: Lymphocytes 48 % (24-44); Monocyte 2 % (0.0-12.0); Neutrophils 50 % (36.-66.); Platelet Estimate NORMAL (NORMAL); Total Cells Counted 100
[2020-10-07] MEDS: MARY'S MOUTHWASH PO PRN (14:45)
[2020-10-07] MEDS: Lantus Insulin SQ SCH (17:11)
[2020-10-07] MEDS: Flomax 0.4 MG PO SCH (21:46)
[2020-10-07] MEDS: ZOCOR 20MG PO SCH (21:47)
[2020-10-07] MEDS: HUMALOG SQ PRN (21:54)
[2020-10-08] MEDS: solu-MEDROL 125 MG IV SCH ×3 (00:44→17:39)
[2020-10-08 05:56] LABS: Hematocrit 39.7 % (42-50); Hemoglobin 12.4 gm/dl (12.5-18.0); Mean Cell Volume 96.6 fl (78-100); Mean Corpuscular Hemoglobin 30.2 pg (26-32); Mean Corpuscular Hgb Concent. 31.2 g/dl (32-36); Mean Platelet Volume 10.4 fl (7.5-11.0); Platelet Count 212 K/mm3 (150-450); Red Blood Count 4.11 M/mm3 (4.1-5.6); Red Cell Distribution Width 14.1 % (11.5-14.0); White Blood Count 18.1 K/mm3 (4.0-10.5)
[2020-10-08 06:06] LABS: ALKALINE PHOSPHATASE 42 U/L (38-126); ANION GAP 12.1 MEQ/L (5-15); BLOOD UREA NITROGEN 21 mg/dL (9-20); CHLORIDE 95 mmol/L (98-107); Calcium 10.1 mg/dL (8.4-10.2); Carbon Dioxide 33 mmol/L (22-30); EST GLOMERULAR FILTRATION RATE > 60.0 ML/MIN; Glucose 218 mg/dL (74-106); Potassium 4.4 mmol/L (3.5-5.1); SGOT/AST 29 U/L (17-59); SGPT/ALT 27 U/L (0-50); SODIUM 136 mmol/L (137-145); Total Protein 7.1 g/dL (6.3-8.2)
[2020-10-08] MEDS ORDERED: Zosyn 3.375 GM Vial IV ONE (06:40)
[2020-10-08] MEDS ORDERED: Sodium Chloride 100ML MINI-BAG PLUS 100 ML IV ONE (06:41)
[2020-10-08] MEDS: DUONEB 0.5-3 MG/3 ml Neb IH SCH ×4 (06:58→18:54)
[2020-10-08] MEDS: Zosyn 3.375 GM Vial 3.375 GM in Sodium Chloride 100ML MINI-BAG PLUS 100 ML IV SCH ×6 (06:59→23:36)
[2020-10-08] MEDS: Cymbalta 30 MG Capsule PO SCH ×2 (08:34→21:44)
[2020-10-08] MEDS: Calcium 500MG W/Vit D Tablet PO SCH ×3 (08:34→21:44)
[2020-10-08] MEDS: ENOXAPARIN SODIUM SQ SCH (08:34)
[2020-10-08] MEDS: ECOTRIN 81 MG PO SCH (08:34)
[2020-10-08] MEDS: THERAGRAN MULTIVITAMIN PO SCH (08:34)
[2020-10-08] MEDS: MYSOLINE 50MG PO SCH ×3 (08:36→21:45)
[2020-10-08] MEDS: NEURONTIN 300 MG PO SCH ×3 (08:36→21:45)
[2020-10-08] MEDS: CLARITIN 10 MG PO SCH (08:36)
[2020-10-08] MEDS: Vitamin C 500 MG PO SCH (08:36)
[2020-10-08] MEDS: VITAMIN D PO SCH (08:36)
[2020-10-08] MEDS: HUMALOG SQ PRN ×3 (08:37→21:55)
[2020-10-08] MEDS: Protonix 40MG Tablet PO SCH ×2 (08:37→21:45)
[2020-10-08] MEDS: MYRBETRIQ PO SCH ×2 (08:37→21:45)
[2020-10-08] MEDS: MARY'S MOUTHWASH PO PRN (09:02)
[2020-10-08 10:24] LABS: BAND 4 % (0.0-2.0); Lymphocytes 48 % (24-44); Monocyte 6 % (0.0-12.0); Neutrophils 42 % (36.-66.); Total Cells Counted 100
[2020-10-08 10:25] LABS: Platelet Estimate NORMAL (NORMAL)
--- NOTE | 2020-10-08 12:07 | PCM.NOTE ---
Date and Time: 10/08/20 1206 Subjective Assessment: patient reports he is some better, still has cough, wheezing and rattling Objective Exam General Appearance: no apparent distress Neurologic Exam: alert, oriented x 3, cooperative Respiratory Exam: rhonchi, wheezing Cardiovascular Exam: regular rate/rhythm, normal heart sounds Gastrointestinal/Abdomen Exam: soft, No tenderness, No mass Extremity Exam: normal inspection, normal range of motion OBJECTIVE DATA Vital Signs: Vital Signs - 24 hr Temp Pulse Resp BP Pulse Ox 10/08/20 10:44 66 18 93 L 10/08/20 07:53 98.6 F 79 15 164/80 93 L 10/08/20 07:01 77 18 93 L 10/08/20 05:05 98.3 F 78 18 155/84 92 L 10/08/20 00:00 98.1 F 81 18 128/85 94 L 10/07/20 20:19 98.5 F 93 H 20 140/83 93 L 10/07/20 19:01 77 19 93 L 10/07/20 16:00 98.6 F 77 12 126/72 91 L 10/07/20 15:10 74 18 95 10/07/20 11:36 98.8 F 75 16 155/73 94 L Pain Assessment - Last Documented Pain Intensity 0 Intake and Output: Intake & Output 10/06/20 10/07/20 10/08/20 10/09/20 10:59 10:59 11:59 11:59 Intake Total Output Total Balance Weight Lab Results: Lab Results-Last 24 Hours 10/07/20 10/07/20 10/08/20 Range/Units 16:21 21:35 05:10 WBC 18.1 H (4.0-10.5) K/mm3 RBC 4.11 (4.1-5.6) M/mm3 Hgb 12.4 L (12.5-18.0) gm/dl Hct 39.7 L (42-50) % MCV 96.6 (78-100) fl MCH 30.2 (26-32) pg MCHC 31.2 L (32-36) g/dl RDW 14.1 H (11.5-14.0) % Plt Count 212 (150-450) K/mm3 MPV 10.4 (7.5-11.0) fl Segmented Neutrophils 42 (36.-66.) % Band Neutrophils 4 H (0.0-2.0) % Lymphocytes (Manual) 48 H (24-44) % Monocytes (Manual) 6 (0.0-12.0) % Platelet Estimate NORMAL (NORMAL) RBC Morphology NORMAL Sodium (137-145) mmol/L Potassium (3.5-5.1) mmol/L Chloride (98-107) mmol/L Carbon Dioxide (22-30) mmol/L Anion Gap (5-15) MEQ/L BUN (9-20) mg/dL Creatinine (0.66-1.25) mg/dL Estimated GFR ML/MIN Glucose (74-106) mg/dL POC Glucometer 192 H 227 H (74 to 106) mg/dL Calcium (8.4-10.2) mg/dL Total Bilirubin (0.2-1.3) mg/dL AST (17-59) U/L ALT (0-50) U/L Alkaline Phosphatase (38-126) U/L Serum Total Protein (6.3-8.2) g/dL Albumin (3.5-5.0) g/dL 10/08/20 10/08/20 10/08/20 Range/Units 05:10 06:57 11:06 WBC (4.0-10.5) K/mm3 RBC (4.1-5.6) M/mm3 Hgb (12.5-18.0) gm/dl Hct (42-50) % MCV (78-100) fl MCH (26-32) pg MCHC (32-36) g/dl RDW (11.5-14.0) % Plt Count (150-450) K/mm3 MPV (7.5-11.0) fl Segmented Neutrophils (36.-66.) % Band Neutrophils (0.0-2.0) % Lymphocytes (Manual) (24-44) % Monocytes (Manual) (0.0-12.0) % Platelet Estimate (NORMAL) RBC Morphology Sodium 136 L (137-145) mmol/L Potassium 4.4 (3.5-5.1) mmol/L Chloride 95 L (98-107) mmol/L Carbon Dioxide 33 H (22-30) mmol/L Anion Gap 12.1 (5-15) MEQ/L BUN 21 H (9-20) mg/dL Creatinine 0.70 (0.66-1.25) mg/dL Estimated GFR > 60.0 ML/MIN Glucose 218 H (74-106) mg/dL POC Glucometer 210 H 181 H (74 to 106) mg/dL Calcium 10.1 (8.4-10.2) mg/dL Total Bilirubin 0.30 (0.2-1.3) mg/dL AST 29 (17-59) U/L ALT 27 (0-50) U/L Alkaline Phosphatase 42 (38-126) U/L Serum Total Protein 7.1 (6.3-8.2) g/dL Albumin 4.0 (3.5-5.0) g/dL Multi-Disciplinary Progress Notes: Multi-Disciplinary Progress Notes 10/08/20 00:43 Respiratory Note by Eli Schumacher THE PT'S O2 WAS INCREASED TO 6L AT THIS TIME DUE TO THE PT'S SPO2 BEING ONLY 89% WHILE ASLEEP ON A 5L NASAL CANNULA. THE PT IS NOT SNORING AND HE IS NOT HAVING APNEA. Initialized on 10/08/20 00:43 - END OF NOTE Assessment/Plan (1) Aspiration pneumonia Current Visit: No Status: Acute Assessment & Plan: continue zosyn, clinically improving. Code(s): J69.0 - PNEUMONITIS DUE TO INHALATION OF FOOD AND VOMIT (2) COPD with exacerbation Current Visit: No Status: Acute Assessment & Plan: on abx, nebs and steroids Code(s): J44.1 - CHRONIC OBSTRUCTIVE PULMONARY DISEASE W (ACUTE) EXACERBATION (3) Chronic respiratory failure with hypoxia Current Visit: No Status: Acute
[2020-10-08] MEDS: Lantus Insulin SQ SCH (17:39)
[2020-10-08] MEDS: Flomax 0.4 MG PO SCH (21:45)
[2020-10-08] MEDS: ZOCOR 20MG PO SCH (21:46)
[2020-10-09] MEDS: solu-MEDROL 125 MG IV SCH ×3 (00:48→17:38)
[2020-10-09] MEDS: DUONEB 0.5-3 MG/3 ml Neb IH SCH ×4 (05:22→19:15)
[2020-10-09] MEDS: Zosyn 3.375 GM Vial 3.375 GM in Sodium Chloride 100ML MINI-BAG PLUS 100 ML IV SCH ×3 (05:26→17:41)
[2020-10-09 05:38] LABS: Hematocrit 40.3 % (42-50); Hemoglobin 12.6 gm/dl (12.5-18.0); Mean Corpuscular Hgb Concent. 31.3 g/dl (32-36); Mean Platelet Volume 9.8 fl (7.5-11.0); Platelet Count 211 K/mm3 (150-450); Red Cell Distribution Width 14.1 % (11.5-14.0); White Blood Count 19.8 K/mm3 (4.0-10.5)
[2020-10-09 05:53] LABS: ALBUMIN 3.9 g/dL (3.5-5.0); ALKALINE PHOSPHATASE 44 U/L (38-126); ANION GAP 10.9 MEQ/L (5-15); BLOOD UREA NITROGEN 25 mg/dL (9-20); CHLORIDE 97 mmol/L (98-107); Calcium 9.7 mg/dL (8.4-10.2); Carbon Dioxide 32 mmol/L (22-30); Creatinine 1 0.79 mg/dL (0.66-1.25); EST GLOMERULAR FILTRATION RATE > 60.0 ML/MIN; Glucose 297 mg/dL (74-106); Potassium 4.4 mmol/L (3.5-5.1); SGOT/AST 23 U/L (17-59); SGPT/ALT 23 U/L (0-50); SODIUM 135 mmol/L (137-145); Total Protein 6.8 g/dL (6.3-8.2)
[2020-10-09 07:37] LABS: ANISOCYTOSIS 1+; Lymphocytes 56 % (24-44); Monocyte 2 % (0.0-12.0); Neutrophils 42 % (36.-66.); Platelet Estimate NORMAL (NORMAL); Total Cells Counted 100; Toxic Granulation 1+
[2020-10-09] MEDS: HUMALOG SQ PRN ×4 (08:06→22:22)
[2020-10-09] MEDS: ENOXAPARIN SODIUM SQ SCH (09:35)
[2020-10-09] MEDS: MYSOLINE 50MG PO SCH ×3 (09:36→22:29)
[2020-10-09] MEDS: Vitamin C 500 MG PO SCH (09:36)
[2020-10-09] MEDS: ECOTRIN 81 MG PO SCH (09:36)
[2020-10-09] MEDS: Protonix 40MG Tablet PO SCH ×2 (09:36→22:28)
[2020-10-09] MEDS: THERAGRAN MULTIVITAMIN PO SCH (09:36)
[2020-10-09] MEDS: Calcium 500MG W/Vit D Tablet PO SCH ×3 (09:36→22:27)
[2020-10-09] MEDS: VITAMIN D PO SCH (09:37)
[2020-10-09] MEDS: Cymbalta 30 MG Capsule PO SCH ×2 (09:37→22:25)
[2020-10-09] MEDS: NEURONTIN 300 MG PO SCH ×3 (09:37→22:26)
[2020-10-09] MEDS: CLARITIN 10 MG PO SCH (09:37)
[2020-10-09] MEDS: MYRBETRIQ PO SCH ×2 (09:37→22:28)
--- NOTE | 2020-10-09 09:58 | XRAY ---
Indication: Follow-up pneumonia. Comparison: October 05, 2020. PA/lateral chest demonstrates grossly stable bibasilar infiltrates/atelectasis with new tiny bilateral effusions. Remaining heart and upper lungs unremarkable. New incompletely visualized lumbar fusion hardware.
--- NOTE | 2020-10-09 10:44 | PCM.NOTE ---
Date and Time: 10/09/20 1044 Subjective Assessment: Patient seen and examined this am. Patient reports he continues to do better than when he was first brought to the hospital. He denies cough or choking when eating. He reports that he does not choke if he uses the thicket for his beverages. He denies swelling in lower extremities. He denies chest pain. - Review of Systems Constitutional: No Fever, No Chills Respiratory: Cough Cardiac: No Symptoms Abdominal/Gastrointestinal: No Symptoms Musculoskeletal: No Symptoms Skin: No Symptoms Psychological: Depression All Other Systems: Unable due to condition (Limited ROS due to patient's condition) Objective Exam General Appearance: mild distress Neurologic Exam: alert, cooperative, motor deficits, No confusion, No agitation Skin Exam: normal color, warm, dry, No rash Neck Exam: other (trach scar) Respiratory Exam: rhonchi Cardiovascular Exam: regular rate/rhythm, normal heart sounds, No murmur, No friction rub, No gallop Gastrointestinal/Abdomen Exam: soft, normal bowel sounds, No tenderness, No distention, No mass Extremity Exam: normal inspection, No pedal edema, No swelling, No tenderness Back Exam: normal inspection OBJECTIVE DATA Vital Signs: Vital Signs - 24 hr Temp Pulse Resp BP Pulse Ox 10/09/20 10:36 77 18 95 10/09/20 08:00 97.8 F 82 19 130/61 93 L 10/09/20 05:22 70 16 90 L 10/09/20 04:00 98.0 F 77 17 142/67 93 L 10/08/20 23:51 98.5 F 79 16 145/67 94 L 10/08/20 20:34 98.2 F 81 20 142/68 93 L 10/08/20 18:54 81 20 93 L 10/08/20 17:00 98.8 F 96 H 20 108/55 91 L 10/08/20 15:09 88 18 93 L 10/08/20 12:26 98.6 F 86 14 132/84 90 L Pain Assessment - Last Documented Pain Intensity 0 Intake and Output: Intake & Output 10/06/20 10/07/20 10/08/20 10/09/20 10:59 10:59 11:59 11:59 Intake Total 2560 Output Total 3510 Balance -950 Weight Lab Results: Lab Results-Last 24 Hours 10/08/20 10/08/2021 Range/Units 11:06 16:08 21:29 WBC (4.0-10.5) K/mm3 RBC (4.1-5.6) M/mm3 Hgb (12.5-18.0) gm/dl Hct (42-50) % MCV (78-100) fl MCH (26-32) pg MCHC (32-36) g/dl RDW (11.5-14.0) % Plt Count (150-450) K/mm3 MPV (7.5-11.0) fl Segmented Neutrophils (36.-66.) % Lymphocytes (Manual) (24-44) % Monocytes (Manual) (0.0-12.0) % Toxic Granulation Platelet Estimate (NORMAL) RBC Morphology Anisocytosis Sodium (137-145) mmol/L Potassium (3.5-5.1) mmol/L Chloride (98-107) mmol/L Carbon Dioxide (22-30) mmol/L Anion Gap (5-15) MEQ/L BUN (9-20) mg/dL Creatinine (0.66-1.25) mg/dL Estimated GFR ML/MIN Glucose (74-106) mg/dL POC Glucometer 181 H 213 H 285 H (74 to 106) mg/dL Calcium (8.4-10.2) mg/dL Total Bilirubin (0.2-1.3) mg/dL AST (17-59) U/L ALT (0-50) U/L Alkaline Phosphatase (38-126) U/L Serum Total Protein (6.3-8.2) g/dL Albumin (3.5-5.0) g/dL 10/09/20 10/09/20 10/09/20 Range/Units 05:10 05:10 05:33 WBC 19.8 H (4.0-10.5) K/mm3 RBC 4.20 (4.1-5.6) M/mm3 Hgb 12.6 (12.5-18.0) gm/dl Hct 40.3 L (42-50) % MCV 96.0 (78-100) fl MCH 30.0 (26-32) pg MCHC 31.3 L (32-36) g/dl RDW 14.1 H (11.5-14.0) % Plt Count 211 (150-450) K/mm3 MPV 9.8 (7.5-11.0) fl Segmented Neutrophils 42 (36.-66.) % Lymphocytes (Manual) 56 H (24-44) % Monocytes (Manual) 2 (0.0-12.0) % Toxic Granulation 1+ Platelet Estimate NORMAL (NORMAL) RBC Morphology ABNORMAL Anisocytosis 1+ Sodium 135 L (137-145) mmol/L Potassium 4.4 (3.5-5.1) mmol/L Chloride 97 L (98-107) mmol/L Carbon Dioxide 32 H (22-30) mmol/L Anion Gap 10.9 (5-15) MEQ/L BUN 25 H (9-20) mg/dL Creatinine 0.79 (0.66-1.25) mg/dL Estimated GFR > 60.0 ML/MIN Glucose 297 H (74-106) mg/dL POC Glucometer 261 H (74 to 106) mg/dL Calcium 9.7 (8.4-10.2) mg/dL Total Bilirubin 0.20 (0.2-1.3) mg/dL AST 23 (17-59) U/L ALT 23 (0-50) U/L Alkaline Phosphatase 44 (38-126) U/L Serum Total Protein 6.8 (6.3-8.2) g/dL Albumin 3.9 (3.5-5.0) g/dL 10/09/20 Range/Units 06:50 WBC (4.0-10.5) K/mm3 RBC (4.1-5.6) M/mm3 Hgb (12.5-18.0) gm/dl Hct (42-50) % MCV (78-100) fl MCH (26-32) pg MCHC (32-36) g/dl RDW (11.5-14.0) % Plt Count (150-450) K/mm3 MPV (7.5-11.0) fl Segmented Neutrophils (36.-66.) % Lymphocytes (Manual) (24-44) % Monocytes (Manual) (0.0-12.0) % Toxic Granulation Platelet Estimate (NORMAL) RBC Morphology Anisocytosis Sodium (137-145) mmol/L Potassium (3.5-5.1) mmol/L Chloride (98-107) mmol/L Carbon Dioxide (22-30) mmol/L Anion Gap (5-15) MEQ/L BUN (9-20) mg/dL Creatinine (0.66-1.25) mg/dL Estimated GFR ML/MIN Glucose (74-106) mg/dL POC Glucometer 287 H (74 to 106) mg/dL Calcium (8.4-10.2) mg/dL Total Bilirubin (0.2-1.3) mg/dL AST (17-59) U/L ALT (0-50) U/L Alkaline Phosphatase (38-126) U/L Serum Total Protein (6.3-8.2) g/dL Albumin (3.5-5.0) g/dL Radiology Exams: Radiology Procedures Category Date Time Status CHEST 2 VIEWS (PA AND LAT) Urgent Exams 10/09/20 09:04 Completed Assessment/Plan (1) Bilateral pneumonia Current Visit: Yes Status: Acute Assessment & Plan: Patient continues on zosyn. White count had trended down to 10 then trended back up likely due to steroids. Patient has rhonchi this am. Will get repeat cxr. Patient's sister contacted nurse and wanted a consult for Dr Hawkins to see patient. Consult was placed. Patient is still requiring oxygen during the day which is not baseline for him. Will follow up on repeat CXR Code(s): J18.9 - PNEUMONIA, UNSPECIFIED ORGANISM (2) COPD with exacerbation Current Visit: No Status: Acute Assessment & Plan: Patient has been getting steroids duonebs incentive spiromentry mucinex and tessalon perles. He is slow to improve with some of his symptoms but overall reports he feels better. Will continue with current therapy at this time and follow up on Pulm's recs Code(s): J44.1 - CHRONIC OBSTRUCTIVE PULMONARY DISEASE W (ACUTE) EXACERBATION (3) Seizure disorder Current Visit: No Status: Chronic Assessment & Plan: Will continue on routine home meds Code(s): G40.909 - EPILEPSY, UNSP, NOT INTRACTABLE, WITHOUT STATUS EPILEPTICUS (4) Diabetes mellitus Current Visit: No Status: Chronic Assessment & Plan: BS are trending up due to steroids. Will continue with long acting and high dose sliding scale. Code(s): E11.9 - TYPE 2 DIABETES MELLITUS WITHOUT COMPLICATIONS (5) Urinary retention Current Visit: Yes Status: Acute Assessment & Plan: Will continue on routine home meds Code(s): R33.9 - RETENTION OF URINE, UNSPECIFIED (6) Hx of traumatic brain injury Current Visit: Yes Status: Acute Assessment & Plan: Continue routine home medications. Patient is on adjusted diet for dysphagia related to hx of TBI and seizure medications and urinary retention meds. Will continue on routine meds Code(s): Z87.820 - PERSONAL HISTORY OF TRAUMATIC BRAIN INJURY
[2020-10-09] MEDS: Lantus Insulin SQ SCH (17:33)
[2020-10-09] MEDS: Flomax 0.4 MG PO SCH (22:26)
[2020-10-09] MEDS: ZOCOR 20MG PO SCH (22:28)
[2020-10-10] MEDS: solu-MEDROL 125 MG IV SCH ×3 (00:15→16:53)
[2020-10-10] MEDS: Zosyn 3.375 GM Vial 3.375 GM in Sodium Chloride 100ML MINI-BAG PLUS 100 ML IV SCH ×3 (00:18→11:46)
[2020-10-10] MEDS: DUONEB 0.5-3 MG/3 ml Neb IH SCH ×4 (07:32→19:36)
[2020-10-10] MEDS: HUMALOG SQ PRN ×4 (07:55→21:39)
[2020-10-10] MEDS: THERAGRAN MULTIVITAMIN PO SCH (09:01)
[2020-10-10] MEDS: Cymbalta 30 MG Capsule PO SCH ×2 (09:01→20:47)
[2020-10-10] MEDS: Protonix 40MG Tablet PO SCH ×2 (09:01→20:49)
[2020-10-10] MEDS: Calcium 500MG W/Vit D Tablet PO SCH ×3 (09:01→20:47)
[2020-10-10] MEDS: MYSOLINE 50MG PO SCH ×3 (09:01→20:48)
[2020-10-10] MEDS: Vitamin C 500 MG PO SCH (09:02)
[2020-10-10] MEDS: VITAMIN D PO SCH (09:02)
[2020-10-10] MEDS: NEURONTIN 300 MG PO SCH ×3 (09:02→20:48)
[2020-10-10] MEDS: CLARITIN 10 MG PO SCH (09:02)
[2020-10-10] MEDS: ECOTRIN 81 MG PO SCH (09:02)
[2020-10-10] MEDS: MYRBETRIQ PO SCH ×2 (09:03→20:48)
[2020-10-10] MEDS: ENOXAPARIN SODIUM SQ SCH (09:03)
--- NOTE | 2020-10-10 09:16 | PCM.NOTE ---
Date and Time: 10/10/20915 Subjective Assessment: 65 yr old male seen this am. Patient reports he is doing ok. He continues to have non productive cough. He denies chest pain since hospital admission. He has no other complaints or concerns this am. - Review of Systems Constitutional: No Fever, No Chills Eyes: No Symptoms Ears, Nose, & Throat: No Symptoms Respiratory: Cough Cardiac: No Chest Pain, No Edema Abdominal/Gastrointestinal: Constipation, No Abdominal Pain, No Nausea, No Vomiting, No Diarrhea Genitourinary Symptoms: Urinary Retention Psychological: Depression (Limited ROS due to hx of TBI) Objective Exam General Appearance: mild distress, alert, other (overweight) Neurologic Exam: alert, motor deficits, depressed mood/affect, No oriented x 3 (oriented to place and person), No disoriented, No confusion Skin Exam: normal color, warm, dry, No rash Eye Exam: eyes nml inspection Ears, Nose, Throat Exam: moist mucous membranes Neck Exam: No normal inspection (trach scar) Respiratory Exam: diminished breath sounds, rhonchi, No normal breath sounds, No chest tenderness, No lungs clear Cardiovascular Exam: regular rate/rhythm, normal heart sounds, normal peripheral pulses, No murmur, No friction rub, No gallop Gastrointestinal/Abdomen Exam: soft, normal bowel sounds, No tenderness, No distention, No mass, No guarding Extremity Exam: No pedal edema, No swelling, No tenderness Back Exam: normal inspection Male Genitalia Exam: deferred Rectal Exam: deferred OBJECTIVE DATA Vital Signs: Vital Signs - 24 hr Temp Pulse Resp BP Pulse Ox 10/10/20 08:00 97.7 F 72 16 166/73 92 L 10/10/20 07:34 79 18 93 L 10/10/20 03:33 97.8 F 78 14 162/60 95 10/10/20 00:00 98.4 F 78 18 146/76 94 L 10/09/20 20:00 98.2 F 83 20 144/73 94 L 10/09/20 19:15 79 18 94 L 10/09/20 17:08 93 L 10/09/20 16:50 95 10/09/20 16:00 97.7 F 90 18 137/78 96 10/09/20 15:25 82 16 96 10/09/20 12:00 97.9 F 76 19 154/66 95 10/09/20 10:57 96 10/09/20 10:36 77 18 95 Pain Assessment - Last Documented Pain Intensity 0 Intake and Output: Intake & Output 10/07/20 10/08/20 10/09/20 10/10/20 10:59 11:59 11:59 11:59 Intake Total 2560 2257 Output Total 3510 2275 Balance -950 -18 Weight Lab Results: Lab Results-Last 24 Hours 10/09/20 10/09/20 10/09/20 Range/Units 11:44 16:04 21:52 POC Glucometer 301 H 250 H 254 H (74 to 106) mg/dL 10/10/20 Range/Units 06:47 POC Glucometer 222 H (74 to 106) mg/dL Radiology Exams: Radiology Procedures Category Date Time Status CHEST 2 VIEWS (PA AND LAT) Routine Exams 10/11/20 06:00 Ordered CHEST 2 VIEWS (PA AND LAT) Urgent Exams 10/09/20 09:04 Completed Multi-Disciplinary Progress Notes: Multi-Disciplinary Progress Notes 10/09/20 12:08 Case Management Note by Nadgee Brand PATIENT STILL ACUTELY ILL- CURRENTLY ON 5L OXYGEN- DOES NOT WEAR AT HOME. WILL CONTINUE TO FOLLOW Initialized on 10/09/20 12:08 - END OF NOTE Assessment/Plan (1) Bilateral pneumonia Current Visit: Yes Status: Acute Assessment & Plan: Patient is on zosyn mucinex duonebs and steroids. His lungs have rhonchi. Antibiotics were switched to levaquin. Patient is on tessalon perrles as well. Patient will have a new swallow study to eval for worsening dysphagia. Patient's will get repeat chest xray. Pulm recommended continued tx Code(s): J18.9 - PNEUMONIA, UNSPECIFIED ORGANISM (2) COPD with exacerbation Current Visit: No Status: Acute Assessment & Plan: Patient is on duonebs and steroids as well. Patient is getting incentive spirometry Code(s): J44.1 - CHRONIC OBSTRUCTIVE PULMONARY DISEASE W (ACUTE) EXACERBATION (3) Seizure disorder Current Visit: No Status: Chronic Assessment & Plan: Will continue routine home meds Code(s): G40.909 - EPILEPSY, UNSP, NOT INTRACTABLE, WITHOUT STATUS EPILEPTICUS (4) Diabetes mellitus Current Visit: No Status: Chronic Assessment & Plan: DM is complicated by the IV steroids patient is getting at this time. Will continue monitoring BS and address as needed. Patient is on long acting and high dose sliding scale Code(s): E11.9 - TYPE 2 DIABETES MELLITUS WITHOUT COMPLICATIONS (5) Urinary retention Current Visit: Yes Status: Acute Assessment & Plan: patient has hx of urinary retention. Will continue on routine home meds Code(s): R33.9 - RETENTION OF URINE, UNSPECIFIED (6) Hx of traumatic brain injury Current Visit: Yes Status: Acute Code(s): Z87.820 - PERSONAL HISTORY OF TRAUMATIC BRAIN INJURY
--- NOTE | 2020-10-10 09:19 | CONS ---
CONSULT DATE: 10/09/2020 HISTORY: Blue Bell is a 65 year-old male, known to me for the last several years, who has been sick for the past few days. The patient reportedly was picked up by EMS at home and appeared somewhat confused. According to sister, he had uncontrollable shaking with question of seizure. He also had high grade fever. The patient's chest x-ray was suggestive of bilateral lower lobe infiltrate suggestive of pneumonia. He has been on supplemental oxygen although he was able to be weaned off to room air and ambulated earlier today. He has cough which has been largely nonproductive. At the time of my evaluation, the patient is sitting in a chair. He appears comfortable, able to answer simple questions and appears without any significant distress. PAST MEDICAL HISTORY: Positive for chronic obstructive pulmonary disease, hypoxemia, sleep apnea, traumatic brain injury several years ago, history of diabetes mellitus and seizure disorder. He also has enlarged prostate. PAST SURGICAL HISTORY: Tracheostomy in the past which is now well healed. MEDICATIONS: Home and current medications are reviewed. ALLERGIES: ADHESIVE TAPE. PHYSICAL EXAMINATION: This is a middle aged male who is sitting in a chair awake and comfortable on room air. Vital signs noted. HEENT: Normocephalic. Oral exam showed small oropharynx. Tracheostomy scar is seen. NECK: Supple. CVS: First and second heart sounds are normal, regular, rhythmic. RESPIRATORY: Shows diminished breath sounds, scattered rhonchi are heard. ABDOMEN: Obese. EXTREMITIES: Trace edema is noted. LABORATORY DATA AND TESTS: Labs and x-rays reviewed. ASSESSMENT: This is a 65 year old male with: 1) Significant pulmonary problems admitted with bilateral lower lobe pneumonia, question secondary to aspiration during seizure episode. 2) Chronic hypoxemia. 3) Chronic obstructive pulmonary disease with exacerbation. 4) Comorbidities listed above. RECOMMENDATIONS: 1) The patient has already showed clinical improvement. 2) Monitor white count and follow chest x-ray. Currently on Zosyn. Continue home medications, deep vein thrombosis prophylaxis. 3) Adjust seizure medication. I will follow up upon discharge in outpatient setting.
[2020-10-10] MEDS: LEVOFLOXACIN 750MG/150ML D5W 750 MG/150 ML BAG IV SCH (14:49)
[2020-10-10] MEDS ORDERED: HUMALOG SQ ONE (16:39)
[2020-10-10] MEDS: Lantus Insulin SQ SCH (16:54)
[2020-10-10] MEDS: Flomax 0.4 MG PO SCH (20:48)
[2020-10-10] MEDS: ZOCOR 20MG PO SCH (20:49)
[2020-10-11] MEDS: solu-MEDROL 125 MG IV SCH ×3 (00:52→17:00)
[2020-10-11 04:55] LABS: Eosinophil (Absolute #) 0 (0-0.5); Hematocrit 40.8 % (42-50); Hemoglobin 12.9 gm/dl (12.5-18.0); Mean Cell Volume 96.2 fl (78-100); Mean Corpuscular Hemoglobin 30.4 pg (26-32); Mean Corpuscular Hgb Concent. 31.6 g/dl (32-36); Mean Platelet Volume 10.2 fl (7.5-11.0); Platelet Count 225 K/mm3 (150-450); Red Blood Count 4.24 M/mm3 (4.1-5.6); White Blood Count 23.4 K/mm3 (4.0-10.5)
[2020-10-11 05:44] LABS: Lymphocytes 62 % (24-44); Monocyte 2 % (0.0-12.0); Neutrophils 36 % (36.-66.); Platelet Estimate NORMAL (NORMAL); Total Cells Counted 100
[2020-10-11 05:48] LABS: ANION GAP 14.9 MEQ/L (5-15); BLOOD UREA NITROGEN 20 mg/dL (9-20); CHLORIDE 92 mmol/L (98-107); Carbon Dioxide 35 mmol/L (22-30); Creatinine 1 0.68 mg/dL (0.66-1.25); EST GLOMERULAR FILTRATION RATE > 60.0 ML/MIN; Glucose 305 mg/dL (74-106); Potassium 4.7 mmol/L (3.5-5.1); SODIUM 137 mmol/L (137-145)
[2020-10-11] MEDS: DUONEB 0.5-3 MG/3 ml Neb IH SCH ×4 (07:00→19:34)
[2020-10-11] MEDS: HUMALOG SQ PRN ×4 (08:30→21:49)
--- NOTE | 2020-10-11 08:37 | XRAY ---
Indication: Follow-up pneumonia. Comparison: October 09, 2020. PA/lateral chest demonstrates mild clearing of right effusion with stable tiny left effusion and stable bibasilar infiltrates/atelectasis. Heart and mediastinal structures within normal limits. No new cardiopulmonary abnormalities.
--- NOTE | 2020-10-11 09:25 | PCM.NOTE ---
Date and Time: 10/11/20923 Subjective Assessment: 65 yr old male seen and examined today. Patient's sister is at bedside. She reports that patient became very ill very quick when he had to be brought in by EMS. She reports that she manages his diet and that at times he will drink fluids that dont have the thickener in it. She also reports at times he eats very quickly and doesnt take time to chew and swallow his food. Discussed with sister and patient that it increases his risk to develop aspiration pneumonia. Patient and patient's sister are opposed to feeding tube placement. Patient has a non productive cough again as reported by patient. Otherwise he reports he is doing well this am. Sister also reports that patient did not have a seizure type episode and has not had a seizure for 20 years. - Review of Systems Constitutional: No Fever, No Chills Respiratory: Cough Cardiac: No Chest Pain, No Edema Abdominal/Gastrointestinal: Constipation (Patient's sister reports patient had large BM yesterday), No Abdominal Pain, No Nausea, No Vomiting, No Diarrhea Genitourinary Symptoms: Urinary Retention Psychological: Depression All Other Systems: Unable due to condition (Limited ROS due to patient's hx of TBI) Objective Exam General Appearance: no apparent distress, alert, other (overweight) Neurologic Exam: alert, motor deficits, depressed mood/affect, No oriented x 3 (oriented to person and place), No disoriented, No confusion Skin Exam: normal color, warm, dry, No rash Eye Exam: eyes nml inspection, No scleral icterus Ears, Nose, Throat Exam: moist mucous membranes Neck Exam: No normal inspection (trach scar) Respiratory Exam: diminished breath sounds, rhonchi, No normal breath sounds, No chest tenderness, No lungs clear, No respiratory distress Cardiovascular Exam: regular rate/rhythm, normal heart sounds, normal peripheral pulses, No murmur, No friction rub, No gallop Gastrointestinal/Abdomen Exam: soft, normal bowel sounds, No tenderness, No distention, No mass, No guarding Extremity Exam: No pedal edema, No swelling, No tenderness Back Exam: normal inspection Male Genitalia Exam: deferred Rectal Exam: deferred OBJECTIVE DATA Vital Signs: Vital Signs - 24 hr Temp Pulse Resp BP Pulse Ox 10/11/20 07:29 95.9 F 79 18 125/59 91 L 10/11/20 06:44 74 18 92 L 10/11/20 04:08 97.7 F 77 19 159/76 92 L 10/11/20 00:01 97.3 F 84 19 128/62 93 L 10/10/20 19:39 95 H 14 97 10/10/20 19:18 98.5 F 92 H 20 140/80 95 10/10/20 16:00 97.9 F 112 H 18 129/82 95 10/10/20 14:35 92 H 18 95 10/10/20 12:00 97.5 F 77 13 159/61 93 L 10/10/20 10:35 72 16 92 L Pain Assessment - Last Documented Pain Intensity 0 Intake and Output: Intake & Output 10/08/20 10/09/20 10/10/20 10/11/20 11:59 11:59 11:59 11:59 Intake Total 2560 2257 600 Output Total 6163 8371 5613 Usvszgd -936 -54 -1399 Lab Results: Lab Results-Last 24 Hours 10/10/20 10/10/20 10/10/20 Range/Units 11:06 16:23 16:29 WBC (4.0-10.5) K/mm3 RBC (4.1-5.6) M/mm3 Hgb (12.5-18.0) gm/dl Hct (42-50) % MCV (78-100) fl MCH (26-32) pg MCHC (32-36) g/dl RDW (11.5-14.0) % Plt Count (150-450) K/mm3 MPV (7.5-11.0) fl Eos # (Auto) (0-0.5) Segmented Neutrophils (36.-66.) % Lymphocytes (Manual) (24-44) % Monocytes (Manual) (0.0-12.0) % Platelet Estimate (NORMAL) RBC Morphology Sodium (137-145) mmol/L Potassium (3.5-5.1) mmol/L Chloride (98-107) mmol/L Carbon Dioxide (22-30) mmol/L Anion Gap (5-15) MEQ/L BUN (9-20) mg/dL Creatinine (0.66-1.25) mg/dL Estimated GFR ML/MIN Glucose (74-106) mg/dL POC Glucometer 239 H 506 H* 502 H* (74 to 106) mg/dL Calcium (8.4-10.2) mg/dL 10/10/20 10/10/20 10/11/20 Range/Units 18:59 21:04 03:29 WBC (4.0-10.5) K/mm3 RBC (4.1-5.6) M/mm3 Hgb (12.5-18.0) gm/dl Hct (42-50) % MCV (78-100) fl MCH (26-32) pg MCHC (32-36) g/dl RDW (11.5-14.0) % Plt Count (150-450) K/mm3 MPV (7.5-11.0) fl Eos # (Auto) (0-0.5) Segmented Neutrophils (36.-66.) % Lymphocytes (Manual) (24-44) % Monocytes (Manual) (0.0-12.0) % Platelet Estimate (NORMAL) RBC Morphology Sodium (137-145) mmol/L Potassium (3.5-5.1) mmol/L Chloride (98-107) mmol/L Carbon Dioxide (22-30) mmol/L Anion Gap (5-15) MEQ/L BUN (9-20) mg/dL Creatinine (0.66-1.25) mg/dL Estimated GFR ML/MIN Glucose (74-106) mg/dL POC Glucometer 395 H 307 H 257 H (74 to 106) mg/dL Calcium (8.4-10.2) mg/dL 10/11/20 10/11/20 10/11/20 Range/Units 04:30 04:30 06:47 WBC 23.4 H (4.0-10.5) K/mm3 RBC 4.24 (4.1-5.6) M/mm3 Hgb 12.9 (12.5-18.0) gm/dl Hct 40.8 L (42-50) % MCV 96.2 (78-100) fl MCH 30.4 (26-32) pg MCHC 31.6 L (32-36) g/dl RDW 14.0 (11.5-14.0) % Plt Count 225 (150-450) K/mm3 MPV 10.2 (7.5-11.0) fl Eos # (Auto) 0 (0-0.5) Segmented Neutrophils 36 (36.-66.) % Lymphocytes (Manual) 62 H (24-44) % Monocytes (Manual) 2 (0.0-12.0) % Platelet Estimate NORMAL (NORMAL) RBC Morphology NORMAL Sodium 137 (137-145) mmol/L Potassium 4.7 (3.5-5.1) mmol/L Chloride 92 L (98-107) mmol/L Carbon Dioxide 35 H (22-30) mmol/L Anion Gap 14.9 (5-15) MEQ/L BUN 20 (9-20) mg/dL Creatinine 0.68 (0.66-1.25) mg/dL Estimated GFR > 60.0 ML/MIN Glucose 305 H (74-106) mg/dL POC Glucometer 271 H (74 to 106) mg/dL Calcium 10.0 (8.4-10.2) mg/dL Radiology Exams: Radiology Procedures Category Date Time Status CHEST 2 VIEWS (PA AND LAT) Routine Exams 10/11/20 06:17 Completed CHEST 2 VIEWS (PA AND LAT) Urgent Exams 10/09/20 09:04 Completed Multi-Disciplinary Progress Notes: Multi-Disciplinary Progress Notes 10/11/20 09:13 Case Management Note by Nadege Brand PATIENT STILL ACUTELY WILL, CHART REVIEWED. MAY NEED HOME O2 SET UP FOR DC. WILL CONTINUE TO FOLLOW Initialized on 10/11/20 09:13 - END OF NOTE 10/10/20 09:47 Case Management Note by Nadege Brand NO CHANGE IN DC PLANS AT THIS TIME- WILL CONTINUE TO FOLLOW Initialized on 10/10/20 09:47 - END OF NOTE Assessment/Plan (1) Bilateral pneumonia Current Visit: Yes Status: Acute Assessment & Plan: Patient's antibiotic was switched from zosyn to levaquin. WBC trending up likely due to steroids. Patient clinically appears better however his lungs still have rhonchi present. He still has mucinex and tessalon perrles as well. Additional barium swallow was ordered for dysphagia which is likely the cause of his aspiration pneumonia. Code(s): J18.9 - PNEUMONIA, UNSPECIFIED ORGANISM (2) COPD with exacerbation Current Visit: No Status: Acute Assessment & Plan: Patient has duonebs steroids antibiotics mucinex tessalon perrles and incentive spirometry. Patient will continue on these meds. He had repeat CXR that showed some improvement. Code(s): J44.1 - CHRONIC OBSTRUCTIVE PULMONARY DISEASE W (ACUTE) EXACERBATION (3) Seizure disorder Current Visit: No Status: Chronic Assessment & Plan: Will continue on routine home meds Code(s): G40.909 - EPILEPSY, UNSP, NOT INTRACTABLE, WITHOUT STATUS EPILEPTICUS (4) Diabetes mellitus Current Visit: No Status: Chronic Assessment & Plan: Patient's BS have been elevated likely due to steroids however will continue with long acting and high dose sliding scale. Patient will likely require additional coverage due to steroids Code(s): E11.9 - TYPE 2 DIABETES MELLITUS WITHOUT COMPLICATIONS (5) Urinary retention Current Visit: Yes Status: Acute Assessment & Plan: Will continue on routine home meds Code(s): R33.9 - RETENTION OF URINE, UNSPECIFIED (6) Hx of traumatic brain injury Current Visit: Yes Status: Acute Assessment & Plan: Patient has aspiration dysphagia urinary incontinence and constipation related to hx of TBI. He will continue on routine home meds for these comorbidities. Code(s): Z87.820 - PERSONAL HISTORY OF TRAUMATIC BRAIN INJURY
[2020-10-11] MEDS: Cymbalta 30 MG Capsule PO SCH ×2 (10:15→21:47)
[2020-10-11] MEDS: NEURONTIN 300 MG PO SCH ×3 (10:16→21:48)
[2020-10-11] MEDS: THERAGRAN MULTIVITAMIN PO SCH (10:16)
[2020-10-11] MEDS: CLARITIN 10 MG PO SCH (10:16)
[2020-10-11] MEDS: VITAMIN D PO SCH (10:16)
[2020-10-11] MEDS: ECOTRIN 81 MG PO SCH (10:16)
[2020-10-11] MEDS: Protonix 40MG Tablet PO SCH ×2 (10:17→21:49)
[2020-10-11] MEDS: MYSOLINE 50MG PO SCH ×3 (10:17→21:48)
[2020-10-11] MEDS: Vitamin C 500 MG PO SCH (10:17)
[2020-10-11] MEDS: Calcium 500MG W/Vit D Tablet PO SCH ×3 (10:17→21:47)
[2020-10-11] MEDS: MYRBETRIQ PO SCH ×2 (10:18→21:48)
[2020-10-11] MEDS: ENOXAPARIN SODIUM SQ SCH (10:20)
[2020-10-11] MEDS: LEVOFLOXACIN 750MG/150ML D5W 750 MG/150 ML BAG IV SCH (10:56)
[2020-10-11] MEDS: PATIENT OWN MEDICATION SQ SCH (10:56)
[2020-10-11] MEDS: Lantus Insulin SQ SCH (16:59)
[2020-10-11] MEDS: Flomax 0.4 MG PO SCH (21:48)
[2020-10-11] MEDS: ZOCOR 20MG PO SCH (21:49)
[2020-10-12] MEDS: solu-MEDROL 125 MG IV SCH ×3 (02:12→21:15)
[2020-10-12 04:56] LABS: Hematocrit 41.1 % (42-50); Mean Cell Volume 95.4 fl (78-100); Mean Corpuscular Hemoglobin 30.2 pg (26-32); Mean Corpuscular Hgb Concent. 31.6 g/dl (32-36); Mean Platelet Volume 10.1 fl (7.5-11.0); Platelet Count 247 K/mm3 (150-450); Red Blood Count 4.31 M/mm3 (4.1-5.6); White Blood Count 24.8 K/mm3 (4.0-10.5)
[2020-10-12 05:27] LABS: ANION GAP 14.1 MEQ/L (5-15); BLOOD UREA NITROGEN 24 mg/dL (9-20); CHLORIDE 87 mmol/L (98-107); Calcium 10.5 mg/dL (8.4-10.2); Carbon Dioxide 40 mmol/L (22-30); Creatinine 1 0.75 mg/dL (0.66-1.25); EST GLOMERULAR FILTRATION RATE > 60.0 ML/MIN; Glucose 256 mg/dL (74-106); Potassium 4.5 mmol/L (3.5-5.1); SODIUM 136 mmol/L (137-145)
[2020-10-12 05:48] LABS: Lymphocytes 54 % (24-44); Monocyte 1 % (0.0-12.0); Neutrophils 45 % (36.-66.); Total Cells Counted 100
[2020-10-12 05:49] LABS: Platelet Estimate NORMAL (NORMAL)
[2020-10-12] MEDS: DUONEB 0.5-3 MG/3 ml Neb IH SCH ×4 (07:06→19:26)
--- NOTE | 2020-10-12 08:16 | PCM.NOTE ---
Date and Time: 10/12/20814 Subjective Assessment: 65 yr old male seen and examined this am. Patient reports that he is feeling ok this morning. He denies productive cough. He is aware that he is going for swallow study later this am. He denies any other concerns this am. - Review of Systems Constitutional: No Fever, No Chills Eyes: No Symptoms Ears, Nose, & Throat: No Symptoms Respiratory: Cough Cardiac: No Chest Pain Abdominal/Gastrointestinal: Constipation, No Abdominal Pain, No Nausea, No Vomiting, No Diarrhea Genitourinary Symptoms: Urinary Retention (Limited ROS due to patient's hx of TBI) Objective Exam General Appearance: no apparent distress Neurologic Exam: alert, cooperative, motor deficits, depressed mood/affect, other (slow deliberate speech), No oriented x 3 (oriented to person and place), No disoriented, No confusion Skin Exam: normal color, warm, dry, No rash Eye Exam: eyes nml inspection Ears, Nose, Throat Exam: moist mucous membranes Neck Exam: No normal inspection (trach scar present) Respiratory Exam: diminished breath sounds, rhonchi, other (still requiring daytime oxygen but not as freq as upon admission), No normal breath sounds, No chest tenderness, No lungs clear, No respiratory distress Cardiovascular Exam: regular rate/rhythm, normal heart sounds, normal peripheral pulses, No murmur, No friction rub, No gallop Gastrointestinal/Abdomen Exam: soft, normal bowel sounds, No tenderness, No distention, No mass, No guarding Extremity Exam: No pedal edema, No swelling, No tenderness Back Exam: normal inspection Male Genitalia Exam: deferred Rectal Exam: deferred OBJECTIVE DATA Vital Signs: Vital Signs - 24 hr Temp Pulse Resp BP Pulse Ox 10/12/20 07:12 82 18 91 L 10/12/20 04:00 98.3 F 83 17 156/71 92 L 10/11/20 23:40 98.2 F 92 H 20 146/68 92 L 10/11/20 19:49 98.0 F 102 H 24 136/62 93 L 10/11/20 19:35 98 H 18 90 L 10/11/20 16:00 98.0 F 96 H 18 128/62 92 L 10/11/20 15:18 90 15 94 L 10/11/20 12:00 97.1 F 79 18 139/65 98 10/11/20 11:22 76 18 91 L Pain Assessment - Last Documented Pain Intensity 0 Intake and Output: Intake & Output 10/09/20 10/10/20 10/11/20 10/12/20 11:59 11:59 11:59 11:59 Intake Total 2560 2257 600 1726 Output Total 0341 9171 4213 2254 Balance - -524 Lab Results: Lab Results-Last 24 Hours 10/11/20 10/11/20 10/11/20 Range/Units 11:48 16:37 20:58 WBC (4.0-10.5) K/mm3 RBC (4.1-5.6) M/mm3 Hgb (12.5-18.0) gm/dl Hct (42-50) % MCV (78-100) fl MCH (26-32) pg MCHC (32-36) g/dl RDW (11.5-14.0) % Plt Count (150-450) K/mm3 MPV (7.5-11.0) fl Segmented Neutrophils (36.-66.) % Lymphocytes (Manual) (24-44) % Monocytes (Manual) (0.0-12.0) % Platelet Estimate (NORMAL) RBC Morphology Sodium (137-145) mmol/L Potassium (3.5-5.1) mmol/L Chloride (98-107) mmol/L Carbon Dioxide (22-30) mmol/L Anion Gap (5-15) MEQ/L BUN (9-20) mg/dL Creatinine (0.66-1.25) mg/dL Estimated GFR ML/MIN Glucose (74-106) mg/dL POC Glucometer 288 H 414 H 405 H (74 to 106) mg/dL Calcium (8.4-10.2) mg/dL 10/12/20 10/12/20 10/12/20 Range/Units 04:30 04:30 06:52 WBC 24.8 H (4.0-10.5) K/mm3 RBC 4.31 (4.1-5.6) M/mm3 Hgb 13.0 (12.5-18.0) gm/dl Hct 41.1 L (42-50) % MCV 95.4 (78-100) fl MCH 30.2 (26-32) pg MCHC 31.6 L (32-36) g/dl RDW 14.0 (11.5-14.0) % Plt Count 247 (150-450) K/mm3 MPV 10.1 (7.5-11.0) fl Segmented Neutrophils 45 (36.-66.) % Lymphocytes (Manual) 54 H (24-44) % Monocytes (Manual) 1 (0.0-12.0) % Platelet Estimate NORMAL (NORMAL) RBC Morphology NORMAL Sodium 136 L (137-145) mmol/L Potassium 4.5 (3.5-5.1) mmol/L Chloride 87 L (98-107) mmol/L Carbon Dioxide 40 H (22-30) mmol/L Anion Gap 14.1 (5-15) MEQ/L BUN 24 H (9-20) mg/dL Creatinine 0.75 (0.66-1.25) mg/dL Estimated GFR > 60.0 ML/MIN Glucose 256 H (74-106) mg/dL POC Glucometer 322 H (74 to 106) mg/dL Calcium 10.5 H (8.4-10.2) mg/dL Radiology Exams: Radiology Procedures Category Date Time Status CHEST 2 VIEWS (PA AND LAT) Routine Exams 10/11/20 06:17 Completed Multi-Disciplinary Progress Notes: Multi-Disciplinary Progress Notes 10/11/20 11:10 Nutrition Note by Liana Luo F/u Note: note Heart healthy diet con't with 100% po intake. Stable weight as of 10/06. Labs 10/11= glu 271, neg fluid balance. goal of po intake >=75% met and ongoing; goal of glu to decrease not met and ongoing. con't to recommend 1800CC restriction be added to diet order. Will con't to monitor and f/u prn. T.LENCHO Luo Initialized on 10/11/20 11:10 - END OF NOTE 10/11/20 09:13 Case Management Note by Nadege Brand PATIENT STILL ACUTELY WILL, CHART REVIEWED. MAY NEED HOME O2 SET UP FOR DC. WILL CONTINUE TO FOLLOW Initialized on 10/11/20 09:13 - END OF NOTE Assessment/Plan (1) Bilateral pneumonia Current Visit: Yes Status: Acute Assessment & Plan: Patient was initially started on rocephin and azith and transitioned to zosyn for suspected aspiration pneumonia. His WBC has trended up and he has developed rhonchi. He was then transitioned to levaquin. WBC continues to trend up likely due the addition of steroids. Patient will get third dose of levaquin. Sputum culture shows normal resp diana. Repeat chest xray yesterday showed improvement will get additional chest xray this am. Code(s): J18.9 - PNEUMONIA, UNSPECIFIED ORGANISM (2) COPD with exacerbation Current Visit: No Status: Acute Assessment & Plan: Patient is on duonebs steroids incentive spiromentry mucinex and tessalon perles. His lungs sound worse then when patient was first admitted. He will continue with current treatment. Mucinex was increased. He will start chest flutter therapy. Will plan on decreasing his steroids to BID. Code(s): J44.1 - CHRONIC OBSTRUCTIVE PULMONARY DISEASE W (ACUTE) EXACERBATION (3) Seizure disorder Current Visit: No Status: Chronic Assessment & Plan: Patient will continue on current home medications Code(s): G40.909 - EPILEPSY, UNSP, NOT INTRACTABLE, WITHOUT STATUS EPILEPTICUS (4) Diabetes mellitus Current Visit: No Status: Chronic Assessment & Plan: Patient has had worsening BS due to steroids. Will continue with long acting and high dose sliding scale. Patient is on a diabetic diet. Code(s): E11.9 - TYPE 2 DIABETES MELLITUS WITHOUT COMPLICATIONS (5) Urinary retention Current Visit: Yes Status: Acute Assessment & Plan: Will continue with routine home meds Code(s): R33.9 - RETENTION OF URINE, UNSPECIFIED (6) Hx of traumatic brain injury Current Visit: Yes Status: Acute Assessment & Plan: Patient is on antiseizure medication as a result of his hx of TBI. He does have swallowing difficulties which leads to aspiration. Will get repeat barium swallow to determine if there is increased aspiration risk. Code(s): Z87.820 - PERSONAL HISTORY OF TRAUMATIC BRAIN INJURY
[2020-10-12] MEDS: HUMALOG SQ PRN ×4 (08:23→21:17)
[2020-10-12] MEDS: ENOXAPARIN SODIUM SQ SCH (08:56)
[2020-10-12] MEDS: LEVOFLOXACIN 750MG/150ML D5W 750 MG/150 ML BAG IV SCH (09:00)
[2020-10-12] MEDS: MARY'S MOUTHWASH PO PRN (09:10)
[2020-10-12] MEDS: Cymbalta 30 MG Capsule PO SCH ×2 (11:36→21:16)
[2020-10-12] MEDS: Calcium 500MG W/Vit D Tablet PO SCH ×3 (11:36→21:15)
[2020-10-12] MEDS: NEURONTIN 300 MG PO SCH ×3 (11:36→21:16)
[2020-10-12] MEDS: ECOTRIN 81 MG PO SCH (11:36)
[2020-10-12] MEDS: Vitamin C 500 MG PO SCH (11:37)
[2020-10-12] MEDS: VITAMIN D PO SCH (11:37)
[2020-10-12] MEDS: MYRBETRIQ PO SCH ×2 (11:37→21:16)
[2020-10-12] MEDS: CLARITIN 10 MG PO SCH (11:37)
[2020-10-12] MEDS: MYSOLINE 50MG PO SCH ×3 (11:37→21:16)
[2020-10-12] MEDS: THERAGRAN MULTIVITAMIN PO SCH (11:37)
[2020-10-12] MEDS: Protonix 40MG Tablet PO SCH ×2 (11:37→21:16)
--- NOTE | 2020-10-12 12:17 | XRAY ---
Indication: Aspiration. Modified barium swallow study was performed by the Department of speech therapy with fluoroscopic assistance provided. Patient ingested multiple consistencies of liquids and solids. Full report and recommendations will be reported separately. Approximately 79 seconds fluoroscopy used.
--- NOTE | 2020-10-12 12:19 | XRAY ---
Indication: Pneumonia. Comparison: One day earlier. PA/lateral chest demonstrates stable minimal bibasilar infiltrates/atelectasis and tiny left effusion. Remaining heart and upper lungs unremarkable. No new cardiopulmonary abnormalities. New barium in esophagus and stomach from modified barium study of the same day.
--- NOTE | 2020-10-12 14:23 | PROG NOTE ---
Events noted. Chart reviewed. DATE: 10/12/2020 HISTORY: The patient was evaluated by me for aspiration pneumonia and hypoxia earlier this week. He has been continued on IV antibiotics and does report improvement. He was weaned off of oxygen yesterday. However this morning again his saturations were marginal and he has been requiring 2 liters oxygen. In addition, the patient had a swallow evaluation that did show dysphagia and aspiration. He does feel somewhat better. His cough has improved. PHYSICAL EXAMINATION: At the time of my evaluation today he is sitting in chair and on oxygen at 2 liters. Temperature 98.3F, heart rate 83, blood pressure 150/71. Saturating 92%. HEENT: Normocephalic. Oral exam is small. CVS: First and second heart sounds are normal, regular, rhythmic. RESPIRATORY: Shows diminished breath sounds, bilateral rhonchi are heard, improved since admission. ABDOMEN: Soft. EXTREMITIES: No edema is noted. LABORATORY DATA AND TESTS: Sputum culture is negative. White count 24.8, hemoglobin 13, hematocrit 41, PLT count 247,000. Sodium 136, potassium 4.5, chloride 87, bicarb 40, glucose 250, BUN 24, creatinine 0.75. Chest x-ray 10/11/2020 showed mild clearing of right pleural effusion and stable left effusion. ASSESSMENT: This is a 65 year old male admitted with: 1) Acute hypoxic respiratory failure. 2) Aspiration pneumonia. 3) Chronic obstructive pulmonary disease with exacerbation. 4) History of seizure although no breakthrough seizures were noted prior to admission, according to the patient's sister who was present at bedside. RECOMMENDATIONS: 1) The patient is showing gradual clinical improvement. 2) Speech swallow follow up. 3) The family was apparently given an option of PEG tube which at this point they both have declined. Knowing Lamont's underlying health problems, I am unsure if it is safe to even have a feeding tube that can be cared without complications. At this time I believe emphasis on swallow mechanism and minimization of aspiration procedures would be the best approach. 4) The patient was given a flutter valve. I have discussed with respiratory therapy, will continue monitoring. I will be available as needed. I discussed at length with sister.
[2020-10-12] MEDS ORDERED: solu-MEDROL 125 MG IV SCH ×2 (15:00→22:00)
[2020-10-12] MEDS: Lantus Insulin SQ SCH (16:45)
[2020-10-12] MEDS: MUCINEX DM 600/30MG PO SCH (21:15)
[2020-10-12] MEDS: Flomax 0.4 MG PO SCH (21:16)
[2020-10-12] MEDS: ZOCOR 20MG PO SCH (21:17)
[2020-10-12] MEDS ORDERED: NEURONTIN 300 MG PO SCH (22:00)
[2020-10-13 05:29] LABS: Hemoglobin 12.5 gm/dl (12.5-18.0); Mean Cell Volume 96.9 fl (78-100); Mean Corpuscular Hemoglobin 30.3 pg (26-32); Mean Corpuscular Hgb Concent. 31.3 g/dl (32-36); Mean Platelet Volume 10.5 fl (7.5-11.0); Platelet Count 230 K/mm3 (150-450); Red Blood Count 4.13 M/mm3 (4.1-5.6); Red Cell Distribution Width 14.2 % (11.5-14.0)
[2020-10-13 05:39] LABS: White Blood Count 26.2 K/mm3 (4.0-10.5)
[2020-10-13 06:15] LABS: ANION GAP 15.6 MEQ/L (5-15); BLOOD UREA NITROGEN 27 mg/dL (9-20); CHLORIDE 89 mmol/L (98-107); Calcium 10.3 mg/dL (8.4-10.2); Carbon Dioxide 36 mmol/L (22-30); EST GLOMERULAR FILTRATION RATE > 60.0 ML/MIN; Glucose 335 mg/dL (74-106); Potassium 4.5 mmol/L (3.5-5.1); SODIUM 136 mmol/L (137-145)
[2020-10-13] MEDS: DUONEB 0.5-3 MG/3 ml Neb IH SCH ×4 (06:37→20:06)
[2020-10-13 07:34] LABS: ATYPICAL LYMPHS 6 %; Lymphocytes 44 % (24-44); Monocyte 2 % (0.0-12.0); Neutrophils 48 % (36.-66.); Total Cells Counted 100
[2020-10-13 07:35] LABS: Nucleated Red Blood Cell 1 %; Platelet Estimate NORMAL (NORMAL)
[2020-10-13 07:39] LABS: Absolute Neutrophil Ct (ANC) 13.32 (1.4-6.9)
[2020-10-13] MEDS: HUMALOG SQ PRN ×3 (08:30→17:57)
[2020-10-13] MEDS ORDERED: Mucomyst 200 MG/ML IH SCH (09:00)
[2020-10-13] MEDS: MUCINEX DM 600/30MG PO SCH ×2 (10:15→22:04)
[2020-10-13] MEDS: NYSTOP POWDER 15 GM TP SCH ×2 (10:16→21:57)
[2020-10-13] MEDS: solu-MEDROL 125 MG IV SCH ×2 (10:16→22:04)
[2020-10-13] MEDS: Cymbalta 30 MG Capsule PO SCH ×2 (10:17→21:56)
[2020-10-13] MEDS: ENOXAPARIN SODIUM SQ SCH (10:18)
[2020-10-13] MEDS: NEURONTIN 300 MG PO SCH ×3 (10:18→21:57)
[2020-10-13] MEDS: MYRBETRIQ PO SCH ×2 (10:18→21:57)
[2020-10-13] MEDS: VITAMIN D PO SCH (10:19)
[2020-10-13] MEDS: Calcium 500MG W/Vit D Tablet PO SCH ×3 (10:19→21:55)
[2020-10-13] MEDS: MYSOLINE 50MG PO SCH ×3 (10:19→21:56)
[2020-10-13] MEDS: Vitamin C 500 MG PO SCH (10:19)
[2020-10-13] MEDS: Protonix 40MG Tablet PO SCH ×2 (10:19→21:56)
[2020-10-13] MEDS: CLARITIN 10 MG PO SCH (10:19)
[2020-10-13] MEDS: ECOTRIN 81 MG PO SCH (10:19)
[2020-10-13] MEDS: THERAGRAN MULTIVITAMIN PO SCH (10:19)
[2020-10-13] MEDS: Mucomyst 200 MG/ML IH SCH ×2 (11:31→20:09)
[2020-10-13] MEDS: MARY'S MOUTHWASH PO PRN ×2 (12:21→18:48)
--- NOTE | 2020-10-13 12:35 | PCM.NOTE ---
Date and Time: 10/13/20 1234 Subjective Assessment: 65 yr old male seen and examined this am. Patient reports that he is doing well. He has been coughing but still not much of a productive cough. Patient reports that he has been eating well following his swallow study. He denies swelling in his legs. Denies chest pain. No other reported concerns this am. - Review of Systems Constitutional: No Fever, No Chills Eyes: No Symptoms Ears, Nose, & Throat: Other (Nurse reported that patient was complaining of mouth pain. ) Respiratory: Cough Cardiac: No Chest Pain, No Edema Abdominal/Gastrointestinal: No Abdominal Pain, No Nausea, No Vomiting, No Diarrhea, No Constipation Genitourinary Symptoms: Other (hx of urinary retention) Musculoskeletal: No Symptoms Skin: No Symptoms Neurological: No Symptoms Psychological: Depression Objective Exam General Appearance: no apparent distress, other (overweight) Neurologic Exam: alert, cooperative, motor deficits, depressed mood/affect, other (limited slow speech but answers questions appropriately), No oriented x 3 (oriented to place and person), No confusion, No agitation Skin Exam: normal color, warm, dry, No rash Eye Exam: eyes nml inspection, No scleral icterus Ears, Nose, Throat Exam: moist mucous membranes, other (Nursing staff reports oral thrush) Neck Exam: other (trach scar) Respiratory Exam: diminished breath sounds, rhonchi, other (Patient is still on oxygen this am), No normal breath sounds, No chest tenderness, No lungs clear Cardiovascular Exam: regular rate/rhythm, normal heart sounds, No murmur, No friction rub, No gallop Gastrointestinal/Abdomen Exam: soft, normal bowel sounds, No tenderness, No distention, No mass, No guarding Extremity Exam: other, No pedal edema, No swelling Back Exam: normal inspection Male Genitalia Exam: deferred Rectal Exam: deferred OBJECTIVE DATA Vital Signs: Vital Signs - 24 hr Temp Pulse Resp BP Pulse Ox 10/13/20 11:32 79 18 94 L 10/13/20 07:09 98.4 F 96 H 14 120/57 91 L 10/13/20 06:45 88 18 93 L 10/13/20 04:00 98.6 F 92 H 20 132/60 95 10/13/20 00:00 98.2 F 92 H 18 156/76 94 L 10/12/20 19:39 98.5 F 106 H 20 134/83 93 L 10/12/20 19:26 110 H 20 92 L 10/12/20 16:00 98.1 F 104 H 18 143/83 93 L 10/12/20 15:06 97 H 18 92 L Pain Assessment - Last Documented Pain Intensity 0 Intake and Output: Intake & Output 10/11/20 10/12/20 10/13/20 10/14/20 11:59 11:59 11:59 11:59 Intake Total 600 1726 840 Output Total 4214 0580 1225 Balance -3615 -874 -045 Lab Results: Lab Results-Last 24 Hours 10/12/20 10/12/20 10/12/20 Range/Units 08:13 15:52 20:56 WBC (4.0-10.5) K/mm3 RBC (4.1-5.6) M/mm3 Hgb (12.5-18.0) gm/dl Hct (42-50) % MCV (78-100) fl MCH (26-32) pg MCHC (32-36) g/dl RDW (11.5-14.0) % Plt Count (150-450) K/mm3 MPV (7.5-11.0) fl Gran % (36.0-66.0) % Eos # (Auto) (0-0.5) Absolute Lymphs (auto) (1.0-4.6) Absolute Monos (auto) (0.0-1.3) Lymphocytes % (24.0-44.0) % Monocytes % (0.0-12.0) % Eosinophils % (0.00-5.0) % Basophils % (0.0-0.4) % Absolute Granulocytes (1.4-6.9) Segmented Neutrophils (36.-66.) % Lymphocytes (Manual) (24-44) % Monocytes (Manual) (0.0-12.0) % Basophils # (0-0.4) Nucleated RBCs % Atypical Lymphocytes % Platelet Estimate (NORMAL) RBC Morphology Smear Path Review Sodium (137-145) mmol/L Potassium (3.5-5.1) mmol/L Chloride (98-107) mmol/L Carbon Dioxide (22-30) mmol/L Anion Gap (5-15) MEQ/L BUN (9-20) mg/dL Creatinine (0.66-1.25) mg/dL Estimated GFR ML/MIN Glucose (74-106) mg/dL POC Glucometer 396 H 411 H (74 to 106) mg/dL Calcium (8.4-10.2) mg/dL NT-Pro-B Natriuret Pep 166 (0-900) pg/mL 10/13/20 10/13/20 10/13/20 Range/Units 04:50 04:50 07:18 WBC 26.2 H* (4.0-10.5) K/mm3 RBC 4.13 (4.1-5.6) M/mm3 Hgb 12.5 (12.5-18.0) gm/dl Hct 40.0 L (42-50) % MCV 96.9 (78-100) fl MCH 30.3 (26-32) pg MCHC 31.3 L (32-36) g/dl RDW 14.2 H (11.5-14.0) % Plt Count 230 (150-450) K/mm3 MPV 10.5 (7.5-11.0) fl Gran % (36.0-66.0) % Eos # (Auto) (0-0.5) Absolute Lymphs (auto) (1.0-4.6) Absolute Monos (auto) (0.0-1.3) Lymphocytes % (24.0-44.0) % Monocytes % (0.0-12.0) % Eosinophils % (0.00-5.0) % Basophils % (0.0-0.4) % Absolute Granulocytes 13.32 H (1.4-6.9) Segmented Neutrophils 48 (36.-66.) % Lymphocytes (Manual) 44 (24-44) % Monocytes (Manual) 2 (0.0-12.0) % Basophils # (0-0.4) Nucleated RBCs 1 % Atypical Lymphocytes 6 % Platelet Estimate NORMAL (NORMAL) RBC Morphology NORMAL Smear Path Review Pending Sodium 136 L (137-145) mmol/L Potassium 4.5 (3.5-5.1) mmol/L Chloride 89 L (98-107) mmol/L Carbon Dioxide 36 H (22-30) mmol/L Anion Gap 15.6 H (5-15) MEQ/L BUN 27 H (9-20) mg/dL Creatinine 0.80 (0.66-1.25) mg/dL Estimated GFR > 60.0 ML/MIN Glucose 335 H (74-106) mg/dL POC Glucometer 280 H (74 to 106) mg/dL Calcium 10.3 H (8.4-10.2) mg/dL NT-Pro-B Natriuret Pep (0-900) pg/mL 10/13/20 Range/Units 11:13 WBC (4.0-10.5) K/mm3 RBC (4.1-5.6) M/mm3 Hgb (12.5-18.0) gm/dl Hct (42-50) % MCV (78-100) fl MCH (26-32) pg MCHC (32-36) g/dl RDW (11.5-14.0) % Plt Count (150-450) K/mm3 MPV (7.5-11.0) fl Gran % (36.0-66.0) % Eos # (Auto) (0-0.5) Absolute Lymphs (auto) (1.0-4.6) Absolute Monos (auto) (0.0-1.3) Lymphocytes % (24.0-44.0) % Monocytes % (0.0-12.0) % Eosinophils % (0.00-5.0) % Basophils % (0.0-0.4) % Absolute Granulocytes (1.4-6.9) Segmented Neutrophils (36.-66.) % Lymphocytes (Manual) (24-44) % Monocytes (Manual) (0.0-12.0) % Basophils # (0-0.4) Nucleated RBCs % Atypical Lymphocytes % Platelet Estimate (NORMAL) RBC Morphology Smear Path Review Sodium (137-145) mmol/L Potassium (3.5-5.1) mmol/L Chloride (98-107) mmol/L Carbon Dioxide (22-30) mmol/L Anion Gap (5-15) MEQ/L BUN (9-20) mg/dL Creatinine (0.66-1.25) mg/dL Estimated GFR ML/MIN Glucose (74-106) mg/dL POC Glucometer 362 H (74 to 106) mg/dL Calcium (8.4-10.2) mg/dL NT-Pro-B Natriuret Pep (0-900) pg/mL Radiology Exams: Radiology Procedures Category Date Time Status CHEST 2 VIEWS (PA AND LAT) Routine Exams 10/12/20 11:30 Completed MODIFIED BARIUM SWALLOW (RAD) [MODIFIED BARIUM SWALLOW Exams 10/12/20 11:00 Completed EXAM] Routine Multi-Disciplinary Progress Notes: Multi-Disciplinary Progress Notes 10/13/20 10:07 Case Management Note by Nadege Brand PATIENT PLANS TO RETURN HOME WITH HIS SISTER AT TIME OF DC. PATIENT CURRENTLY ON ROOM AIR. HE ALREADY USES [employer] AT HOME WELL. WILL CONTINUE TO FOLLOW FOR ANY NEW NEEDS Initialized on 10/13/20 10:07 - END OF NOTE 10/12/20 14:52 Mod Barium Swallow Note by Luisa Moreno Modified Barium Swallow Study ST Modified Barium Swallow Study Start: 10/11/20 15:36 Freq: .as ordered Status: Active Protocol: Document 10/12/20 14:21 BM (Rec: 10/12/20 14:51 BM [id number]) E-Sign 10/12/20 14:21 BM Modified Barium Swallow Reason for Assessment Primary Diagnosis J18.9 - PNEUMONIA, UNSPECIFIED ORGANISM Treatment Diagnosis #1 R13.12 - DYSPHAGIA, OROPHARYNGEAL PHASE Reason for Assessment Patient referred for MBS study due to diagnosis of bilateral LL pneumonia. Blue has a long history of dysphagia with aspiration. Onset Date 10/03/20 Date of Evaluation/SOC 10/12/20 Pain Assessment Do you have pain on swallowing No Non-verbal signs & symptoms of pain No Modified Barium Swallow View This evaluation was completed to assess the functioning of the oral and pharyngeal phases of swallowing and to determine if the patient is aspirating or at risk for aspiration. Modified Barium Swallow View Lateral View Consistencies Assessed Barium trials included: Thin Liquid via Spoon,Thin Liquid via Cup,Thin Liquid via Straw,[place] Liquid via Spoon ,Thin Honey Liquid via spoon, Honey Liquid via Spoon,Pudding Liquid via spoon,Pureed Food Aspiration Risk Aspiration Observed No Amount of Aspiration Observed None Patient considered at risk of aspiration Yes during oral intake Patient is at risk for aspiration After the swallow,Before the swallow,During the swallow Severity of Aspiration Risk Moderate Penetration into Laryngeal Vestibule Yes Penetration occured with Thin Liquid Reason for aspirational risk: Patient is at risk for aspiration before the swallow due to premature spillage with all consistencies trialled due to delayed swallow initiation. He is at risk for aspiration occurring after the swallow due to residue remaining in oral cavity and laryngeal/ pharyngeal recesses after swallow completed. He required verbal cue to swallow again with all consistencies. He demonstrates risk of aspiration during the swallow with decreased coordination/ timing of laryngeal vestibule closure. Residue/Retention Residue Observed Valleculae Right,Valleculae Left,Pyriform Sinus Right, Pyriform Sinus Left,Pharyngeal Wall Esophageal Function No Impairment (WFL) Other Assessment of esophageal function is limited due to movement limitation of equipment utilized. Assessment of Swallow Phases Oral Phase Labial Closure No Impairment (WFL) Bolus Formation Yes Bolus Control Pooling L/R No Impairment (WFL) Bolus Control under Tongue No Impairment (WFL) Bolus Control Scattered Loss Mild Impairment Mastication Effectiveness No Impairment (WFL) A/P Bolus Propulsion No Impairment (WFL) Premature Spillage into: Laryngeal Vestibule,Pyriform Sinuses,Valleculae A/P Lingual Propulsion Delay No Impairment (WFL) Lingual Movement Minimal Impairment Residue Clearing/Sensitivity Moderate Impairment Aspiration No Swallow Initiation Delay Moderate Impairment Swallow Delay Time (sec) 2 Other Oral Phase Observations Patient with inconsistent level of premature spillage to valleculae, pharyngeal recesses, or laryngeal vestibule with each swallow attempted. All sufficiently cleared with additional swallow required in order to clear bolus from pharyngeal recesses, valleculae, and pyriform sinuses.. Pharyngeal Phase Base of Tongue Retraction No Impairment (WFL) Epiglottic Coverage No Impairment (WFL) Laryngeal Elevation No Impairment (WFL) Reduced Anterior Laryngeal Movement No Laryngeal Closure Mild Impairment Vallecular Retention Clearing Mild Impairment Pharyn. Wall Residue Clearing Mild Impairment Pyriform Sinus Retention Mild Impairment Penetration Yes Aspiration No Cricopharyngeal Dysfunction No Cough Spontaneous Other Pharyngeal Phase Observation When trialled thin liquid barium, [place] demonstrated decreased bolus control, resulting in laryngeal vestibule penetration without aspiration. Spontaneous choke occurred with cup presentation of thin liquid barium, without demonstration of aspiration. Additional trial resulted in residue in valleculae and pyriform sinuses without penetration or aspiration. Large volume intake of thin liquid via straw resulted in laryngeal vestibule penetration with no cough demonstrated. All additional trials of barium consistencies resulted in premature spillage to valleculae, pyriform sinuses, and cricopharyngeous. All sufficiently cleared with additional dry swallow. Clinical Interpretation Clinical Interpretation Patient demonstrates moderate oral-pharyngeal dysphagia, without aspiration. Speech Therapy Teaching Record Teaching Summary Results/Recommendations Learning Preferences Demonstration,Discussion Barriers to Learning Cognitive/Verbal,Cognitive/ Written Readiness for Learning Accepting Teaching Methods Discussion Teaching Recipient Patient,Primary Caregiver Response to Teaching Verbalize understanding ST Recommendations Diet Consistency Regular Liquid Consistency Honey Comment Blue's current diet is 1800 zach ADA with pudding thick liquids. However, he and his guardian reported that he frequently cheats and will steal drinks without thickener . These he will grab and drink fast with multiple gulps . Follow-Up Primary Physician regarding findings/ Yes recommendations Safe Swallow Compensatory Strategies Compensatory Strategies Upright Position for all meals ,Small bites and drinks,Dry swallows,Alternate solids/ liquids,Thicken Liquids (see consistency above) Medication Instructions Per Patient Preference Speech Therapist Treatment Program Therapeutic Feeds Teach Compensatory Techniques, Monitor Progress,Diet Consistency Analysis Initialized on 10/12/20 14:52 - END OF NOTE Assessment/Plan (1) Bilateral pneumonia Current Visit: Yes Status: Acute Assessment & Plan: Patient has been on multiple antibiotics including rocephin azith zosyn and levaquin. Sputum culture was neg for predominant organism. Antibiotics were discontinued today. Patient has leukocytosis likely related to steriods. He has remained afebrile and clinically his vitals signs have improved. Repeat CXR showed improvement as well. Rhonchi still present on exam. Steroids are being tapered down. Patient started on increased dose of mucinex yesterday and mucomyst today. Flutter therapy was added yesterday as well. He continues with incentive spirometry. Patient has been slowly weened from oxygen which he uses mainly at night. Will continue to monitor VS. Plan to discharge to home in the next 1-2 days if patient continues to improve with plans to follow up with PCP and Pulm as outpatient. Code(s): J18.9 - PNEUMONIA, UNSPECIFIED ORGANISM (2) COPD with exacerbation Current Visit: No Status: Acute Assessment & Plan: Patient is on duonebs, IV steroids, mucinex incentive spirometry, flutter therapy and mucomyst and tessalon perrles. Patient has still required oxygen during the day however he did not need oxygen for most of the day yesterday and the day prior. Will continue to monitor for symptom improvement. Patient may benefit from being on singulair. Code(s): J44.1 - CHRONIC OBSTRUCTIVE PULMONARY DISEASE W (ACUTE) EXACERBATION (3) Seizure disorder Current Visit: No Status: Chronic Assessment & Plan: Will continue on routine home medication for seizure prevention. Patient's sitster reports patient has not had a seizure for about 20 years. Code(s): G40.909 - EPILEPSY, UNSP, NOT INTRACTABLE, WITHOUT STATUS EPILEPTICUS (4) Diabetes mellitus Current Visit: No Status: Chronic Assessment & Plan: Patient's BS have not been well controlled due to large doses of steroids. He is requiring additional insulin to cover the hyperglycemia. Will continue to monitor BS and continue with long acting and high dose sliding scale. Will likely resume his home meds for DM when discharged Code(s): E11.9 - TYPE 2 DIABETES MELLITUS WITHOUT COMPLICATIONS (5) Urinary retention Current Visit: Yes Status: Acute Assessment & Plan: Will continue on routine home meds for urinary retention Code(s): R33.9 - RETENTION OF URINE, UNSPECIFIED (6) Hx of traumatic brain injury Current Visit: Yes Status: Acute Assessment & Plan: Patient has multiple comorbidites related to TBI including seizures, dysphagia, constipation and urinary retention. Patient requires a walker for ambulation as well. Code(s): Z87.820 - PERSONAL HISTORY OF TRAUMATIC BRAIN INJURY (7) Leukocytosis Current Visit: Yes Status: Acute Assessment & Plan: Likely caused by high dose steroids. Patient is being tapered down on steroids. Will continue to trend his WBC Code(s): D72.829 - ELEVATED WHITE BLOOD CELL COUNT, UNSPECIFIED (8) Thrush, oral Current Visit: No Status: Acute Assessment & Plan: Patient is getting kenan yuni mouthwash for thrush Code(s): B37.0 - CANDIDAL STOMATITIS
[2020-10-13] MEDS: Lantus Insulin SQ SCH (17:54)
[2020-10-13] MEDS: Flomax 0.4 MG PO SCH (21:56)
[2020-10-13] MEDS: ZOCOR 20MG PO SCH (21:56)
[2020-10-14] MEDS: Mucomyst 200 MG/ML IH SCH ×2 (06:45→19:14)
[2020-10-14] MEDS: DUONEB 0.5-3 MG/3 ml Neb IH SCH ×4 (06:45→19:13)
[2020-10-14] MEDS: HUMALOG SQ PRN ×4 (08:02→22:16)
[2020-10-14] MEDS: Calcium 500MG W/Vit D Tablet PO SCH ×3 (09:56→20:19)
[2020-10-14] MEDS: ECOTRIN 81 MG PO SCH (09:56)
[2020-10-14] MEDS: MYSOLINE 50MG PO SCH ×3 (09:56→20:40)
[2020-10-14] MEDS: ENOXAPARIN SODIUM SQ SCH (09:56)
[2020-10-14] MEDS: NEURONTIN 300 MG PO SCH ×3 (09:56→20:21)
[2020-10-14] MEDS: Vitamin C 500 MG PO SCH (09:57)
[2020-10-14] MEDS: Cymbalta 30 MG Capsule PO SCH ×2 (09:57→20:19)
[2020-10-14] MEDS: NYSTOP POWDER 15 GM TP SCH ×2 (09:57→20:38)
[2020-10-14] MEDS: THERAGRAN MULTIVITAMIN PO SCH (09:57)
[2020-10-14] MEDS: Protonix 40MG Tablet PO SCH ×2 (09:57→20:39)
[2020-10-14] MEDS: CLARITIN 10 MG PO SCH (09:57)
[2020-10-14] MEDS: VITAMIN D PO SCH ×2 (09:57→20:19)
[2020-10-14] MEDS: MYRBETRIQ PO SCH ×2 (09:58→20:38)
[2020-10-14] MEDS: solu-MEDROL 125 MG IV SCH ×2 (10:05→20:18)
[2020-10-14] MEDS: MUCINEX DM 600/30MG PO SCH ×2 (10:15→20:18)
[2020-10-14] MEDS ORDERED: PROVENTIL 2.5 MG/3 ML NEB IH PRN (12:00)
[2020-10-14] MEDS: Lantus Insulin SQ SCH (16:43)
[2020-10-14] MEDS: Flomax 0.4 MG PO SCH (20:19)
[2020-10-14] MEDS: ZOCOR 20MG PO SCH (20:20)
[2020-10-15 06:28] LABS: Hemoglobin 12.3 gm/dl (12.5-18.0); Mean Cell Volume 96.1 fl (78-100); Mean Corpuscular Hemoglobin 30.3 pg (26-32); Mean Corpuscular Hgb Concent. 31.5 g/dl (32-36); Mean Platelet Volume 10.8 fl (7.5-11.0); Platelet Count 229 K/mm3 (150-450); Red Blood Count 4.06 M/mm3 (4.1-5.6); Red Cell Distribution Width 14.3 % (11.5-14.0); White Blood Count 23.7 K/mm3 (4.0-10.5)
[2020-10-15 06:31] LABS: BLOOD UREA NITROGEN 25 mg/dL (9-20); CHLORIDE 91 mmol/L (98-107); Calcium 9.5 mg/dL (8.4-10.2); Carbon Dioxide 34 mmol/L (22-30); Creatinine 1 0.65 mg/dL (0.66-1.25); EST GLOMERULAR FILTRATION RATE > 60.0 ML/MIN; Glucose 255 mg/dL (74-106); Potassium 4.1 mmol/L (3.5-5.1); SODIUM 135 mmol/L (137-145)
[2020-10-15] MEDS: DUONEB 0.5-3 MG/3 ml Neb IH SCH ×4 (06:47→20:08)
[2020-10-15] MEDS: Mucomyst 200 MG/ML IH SCH ×2 (06:47→20:08)
[2020-10-15] MEDS: HUMALOG SQ PRN ×4 (08:25→20:20)
[2020-10-15] MEDS: solu-MEDROL 125 MG IV SCH ×2 (08:27→20:24)
[2020-10-15] MEDS: Calcium 500MG W/Vit D Tablet PO SCH ×3 (09:55→20:22)
[2020-10-15] MEDS: CLARITIN 10 MG PO SCH (09:55)
[2020-10-15] MEDS: MUCINEX DM 600/30MG PO SCH ×2 (09:56→20:22)
[2020-10-15] MEDS: ECOTRIN 81 MG PO SCH (09:56)
[2020-10-15] MEDS: Cymbalta 30 MG Capsule PO SCH ×2 (09:56→20:22)
[2020-10-15] MEDS: THERAGRAN MULTIVITAMIN PO SCH (09:57)
[2020-10-15] MEDS: Vitamin C 500 MG PO SCH (09:57)
[2020-10-15] MEDS: Protonix 40MG Tablet PO SCH ×2 (09:58→20:23)
[2020-10-15] MEDS: MYSOLINE 50MG PO SCH ×3 (09:58→20:24)
[2020-10-15] MEDS: NEURONTIN 300 MG PO SCH ×3 (09:59→20:23)
[2020-10-15] MEDS: MYRBETRIQ PO SCH ×2 (09:59→20:25)
[2020-10-15] MEDS: ENOXAPARIN SODIUM SQ SCH (10:01)
[2020-10-15] MEDS: NYSTOP POWDER 15 GM TP SCH ×2 (10:01→20:24)
[2020-10-15] MEDS: Lantus Insulin SQ SCH (17:09)
[2020-10-15] MEDS: Flomax 0.4 MG PO SCH (20:22)
[2020-10-15] MEDS: VITAMIN D PO SCH (20:22)
[2020-10-15] MEDS: ZOCOR 20MG PO SCH (20:23)
[2020-10-16] MEDS: DUONEB 0.5-3 MG/3 ml Neb IH SCH ×2 (06:44→10:59)
[2020-10-16] MEDS: HUMALOG SQ PRN ×2 (08:21→12:14)
[2020-10-16] MEDS: NEURONTIN 300 MG PO SCH (09:33)
[2020-10-16] MEDS: Cymbalta 30 MG Capsule PO SCH (09:33)
[2020-10-16] MEDS: Vitamin C 500 MG PO SCH (09:34)
[2020-10-16] MEDS: MYSOLINE 50MG PO SCH (09:34)
[2020-10-16] MEDS: ECOTRIN 81 MG PO SCH (09:34)
[2020-10-16] MEDS: CLARITIN 10 MG PO SCH (09:34)
[2020-10-16] MEDS: Calcium 500MG W/Vit D Tablet PO SCH (09:36)
[2020-10-16] MEDS: THERAGRAN MULTIVITAMIN PO SCH (09:36)
[2020-10-16] MEDS: Protonix 40MG Tablet PO SCH (09:36)
[2020-10-16] MEDS: MYRBETRIQ PO SCH (09:38)
[2020-10-16] MEDS: ENOXAPARIN SODIUM SQ SCH (09:39)
[2020-10-16] MEDS: solu-MEDROL 125 MG IV SCH (09:44)
[2020-10-16] MEDS ORDERED: NON-FORMULARY ITEM PO SCH (10:00)
[2020-10-16] MEDS: MUCINEX DM 600/30MG PO SCH (10:18)
[2020-10-16] MEDS: NYSTOP POWDER 15 GM TP SCH (10:18)
[2020-10-16 11:00] VITALS: PULSE 95
[2020-10-16 11:46] VITALS: BP 129/83; O2SAT 96
== END 2020-10-16 13:25 | disposition home or self-care (01) | DRG 177 ==
LOC: ED 17:54 → MED SURG 22:38 → INTOOBSV 10-04 09:00 → OBSVTOIN 10-04 09:00 → MED SURG 10-06 13:42
PROVIDERS: ADMIT Family Medicine; ATTEND Family Medicine
DX: J69.0 Pneumonitis due to inhalation of food and vomit (principal); J96.01 Acute respiratory failure with hypoxia; J44.1 Chronic obstructive pulmonary disease with (acute) exacerbation; J96.11 Chronic respiratory failure with hypoxia; B37.0 Candidal stomatitis; Z99.81 Dependence on supplemental oxygen; Z87.820 Personal history of traumatic brain injury; Z79.899 Other long term (current) drug therapy; R07.9 Chest pain, unspecified; K59.00 Constipation, unspecified; E78.00 Pure hypercholesterolemia, unspecified; G40.909 Epilepsy, unspecified, not intractable, without status epilepticus; E11.65 Type 2 diabetes mellitus with hyperglycemia; R33.9 Retention of urine, unspecified; D72.829 Elevated white blood cell count, unspecified
CPT/HCPCS: 0241U; 36000; 36415; 70450; 71045; 71046; 71250; 74230; 80048; 80053; 81001; 82947; 83605; 83880; 84145; 84484; 85025; 85027; 87040; 87070; 87086; 87400; 87651; 89220; 92611; 94640; 94667; 94668; 94760; 94762; 96365; 96368; 99285; 99291; G0378; J0456; J0696; J1650; J1817; J1956; J2930; A9270-GY

== ENCOUNTER 2020-10-24 14:40 | Emergency (ER) | payer MEDICARE ==
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
--- NOTE | 2020-10-24 15:26 | XRAY ---
Indication: Pneumonia. Comparison: October 11, 2020. Portable chest unchanged again demonstrating minimal bibasilar infiltrates versus atelectasis. Heart is not enlarged. No new cardiopulmonary abnormalities.
[2020-10-24 15:28] LABS: Absolute Neutrophil Ct (ANC) 5.05 (1.4-6.9); BASOPHIL % 0.2 % (0.0-0.4); Basophil (Absolute #) 0.02 (0-0.4); Eosinophil % 0.4 % (0.00-5.0); Eosinophil (Absolute #) 0.05 (0-0.5); Hematocrit 39.4 % (42-50); Hemoglobin 12.5 gm/dl (12.5-18.0); Lymphocyte (Absolute #) 6.29 (1.0-4.6); Lymphocytes % 52.1 % (24.0-44.0); Mean Corpuscular Hemoglobin 30.8 pg (26-32); Mean Corpuscular Hgb Concent. 31.7 g/dl (32-36); Mean Platelet Volume 10.2 fl (7.5-11.0); Monocyte (Absolute #) 0.66 (0.0-1.3); Monocytes % 5.5 % (0.0-12.0); Neutrophil % 41.8 % (36.0-66.0); Platelet Count 184 K/mm3 (150-450); Red Blood Count 4.06 M/mm3 (4.1-5.6); Red Cell Distribution Width 14.4 % (11.5-14.0); White Blood Count 12.1 K/mm3 (4.0-10.5)
[2020-10-24 15:41] LABS: ALBUMIN 3.6 g/dL (3.5-5.0); ALKALINE PHOSPHATASE 43 U/L (38-126); ANION GAP 12.6 MEQ/L (5-15); BLOOD UREA NITROGEN 9 mg/dL (9-20); CHLORIDE 102 mmol/L (98-107); Calcium 9.4 mg/dL (8.4-10.2); Carbon Dioxide 31 mmol/L (22-30); Creatinine 1 0.79 mg/dL (0.66-1.25); EST GLOMERULAR FILTRATION RATE > 60.0 ML/MIN; Glucose 170 mg/dL (74-106); Potassium 4.1 mmol/L (3.5-5.1); SGOT/AST 22 U/L (17-59); SGPT/ALT 22 U/L (0-50); SODIUM 141 mmol/L (137-145); Total Protein 6.4 g/dL (6.3-8.2)
[2020-10-24 15:50] VITALS: BP 116/62
[2020-10-24 16:02] VITALS: PULSE 76
[2020-10-24 16:23] LABS: Slide Review 1 YES
[2020-10-24 17:21] VITALS: O2SAT 95
== END 2020-10-24 16:13 | disposition home or self-care (01) ==
LOC: ED 14:40
DX: J40 Bronchitis, not specified as acute or chronic (principal)
CPT/HCPCS: 36000; 36415; 71045; 80053; 83605; 85025; 99284

== ENCOUNTER 2020-12-09 14:32 | Inpatient (IN) | payer MEDICARE ==
[2020-12-09] MEDS ORDERED: Sodium Chloride 0.9% 1000 ML 1,000 ML IV STA (15:17)
[2020-12-09 15:40] LABS: Absolute Neutrophil Ct (ANC) 7.11 (1.4-6.9); BASOPHIL % 0.1 % (0.0-0.4); Basophil (Absolute #) 0.01 (0-0.4); Eosinophil % 0.2 % (0.00-5.0); Eosinophil (Absolute #) 0.02 (0-0.5); Hematocrit 42.9 % (42-50); Hemoglobin 13.3 gm/dl (12.5-18.0); Lymphocyte (Absolute #) 4.14 (1.0-4.6); Lymphocytes % 34.6 % (24.0-44.0); Mean Cell Volume 98.4 fl (78-100); Mean Corpuscular Hemoglobin 30.5 pg (26-32); Monocyte (Absolute #) 0.68 (0.0-1.3); Monocytes % 5.7 % (0.0-12.0); Neutrophil % 59.4 % (36.0-66.0); Platelet Count 128 K/mm3 (150-450); Red Blood Count 4.36 M/mm3 (4.1-5.6); Red Cell Distribution Width 14.7 % (11.5-14.0)
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
[2020-12-09 16:04] LABS: ALBUMIN 4.3 g/dL (3.5-5.0); ALKALINE PHOSPHATASE 43 U/L (38-126); ANION GAP 11.1 MEQ/L (5-15); BLOOD UREA NITROGEN 13 mg/dL (9-20); CHLORIDE 98 mmol/L (98-107); Calcium 9.7 mg/dL (8.4-10.2); Carbon Dioxide 34 mmol/L (22-30); Creatinine 1 0.79 mg/dL (0.66-1.25); EST GLOMERULAR FILTRATION RATE > 60.0 ML/MIN; Glucose 108 mg/dL (74-106); MAGNESIUM 1.9 mg/dL (1.6-2.3); NT PRO BNP 109 pg/mL (0-900); Potassium 4.4 mmol/L (3.5-5.1); SGOT/AST 31 U/L (17-59); SGPT/ALT 21 U/L (0-50); SODIUM 139 mmol/L (137-145); TROPONIN < 0.012 ng/mL (0.000-0.034); Total Protein 7.2 g/dL (6.3-8.2)
[2020-12-09] MEDS ORDERED: TYLENOL 325 MG PO PRN (16:23)
[2020-12-09] MEDS ORDERED: Levofloxacin 500MG/100ML D5W 500 MG/100 ML BAG IV ONE (16:34)
[2020-12-09] MEDS ORDERED: ROCEPHIN 1 Gm-D5w 50 ml Bag** 1 G/50 ML IVPB IV ONE (16:34)
[2020-12-09] MEDS: DUONEB 0.5-3 MG/3 ml Neb IH SCH (16:40)
[2020-12-09 17:30] LABS: INFLUENZA A NEGATIVE (NEGATIVE); INFLUENZA B NEGATIVE (NEGATIVE); RESPIRATORY SYNCTIAL VIRUS NEGATIVE (Negative)
[2020-12-09] MEDS: Advair Hfa 115/21 Common canister IH SCH (17:55)
[2020-12-09 19:05] LABS: Appearance CLEAR (CLEAR); Bilirubin NEGATIVE (NEGATIVE); Blood NEGATIVE Ery/ul (0-5); Glucose >=500 mg/dL (NEGATIVE); Ketones TRACE (NEGATIVE); Leukocyte Esterase NEGATIVE (NEGATIVE); Nitrite NEGATIVE (NEGATIVE); Protein,Urine Dip NEGATIVE (Negative); Specific Gravity 1.028 (1.005-1.025); Urobilinogen NEGATIVE mg/dL (0-1); WBC 0-2 /HPF (0-5)
[2020-12-09 19:06] LABS: Bacteria NONE SEEN /HPF (NEGATIVE)
--- NOTE | 2020-12-09 19:45 | XRAY ---
Indication: Short of breath. Pneumonia. Comparison: November 22, 2020. Portable chest demonstrates worsening left mid to lower lung and right base infiltrates/atelectasis with new tiny bibasilar effusions. Remaining heart and upper lungs unremarkable.
[2020-12-09] MEDS ORDERED: MUCINEX DM 600/30MG PO PRN (21:45)
[2020-12-09] MEDS ORDERED: Calcium 500MG W/Vit D Tablet PO SCH (22:00)
[2020-12-09] MEDS ORDERED: MUCINEX DM 600/30MG PO SCH ×2 (22:00)
[2020-12-09] MEDS ORDERED: LIPITOR 40MG PO SCH (22:00)
[2020-12-09] MEDS ORDERED: Depakote EXTENDED RELEASE 250 MG PO SCH (22:00)
[2020-12-09] MEDS ORDERED: Protonix 40MG Tablet PO SCH (22:00)
[2020-12-09] MEDS ORDERED: ZOCOR 20MG ONE (22:23)
[2020-12-09] MEDS: Lantus Insulin SQ SCH (22:31)
[2020-12-09] MEDS: MYSOLINE 50MG PO SCH (22:34)
[2020-12-09] MEDS: Cymbalta 30 MG Capsule PO SCH (22:37)
[2020-12-09] MEDS: ZOCOR 20MG PO SCH (22:38)
[2020-12-09] MEDS: NEURONTIN 300 MG PO SCH (22:38)
[2020-12-09] MEDS: CLARITIN 10 MG PO SCH (22:39)
[2020-12-09] MEDS: MYRBETRIQ PO SCH (22:42)
[2020-12-09] MEDS: Sodium Chloride 0.9% 1000 ML 1,000 ML IV SCH (23:42)
[2020-12-10] MEDS: DUONEB 0.5-3 MG/3 ml Neb IH SCH ×4 (01:40→19:39)
[2020-12-10 06:06] LABS: Absolute Neutrophil Ct (ANC) 3.73 (1.4-6.9); BASOPHIL % 0.1 % (0.0-0.4); Basophil (Absolute #) 0.01 (0-0.4); Eosinophil % 1.1 % (0.00-5.0); Hematocrit 39.7 % (42-50); Hemoglobin 12.2 gm/dl (12.5-18.0); Lymphocyte (Absolute #) 4.03 (1.0-4.6); Lymphocytes % 46.2 % (24.0-44.0); Mean Cell Volume 98.8 fl (78-100); Mean Corpuscular Hemoglobin 30.3 pg (26-32); Mean Corpuscular Hgb Concent. 30.7 g/dl (32-36); Mean Platelet Volume 9.9 fl (7.5-11.0); Monocyte (Absolute #) 0.86 (0.0-1.3); Monocytes % 9.9 % (0.0-12.0); Neutrophil % 42.7 % (36.0-66.0); Platelet Count 125 K/mm3 (150-450); Red Blood Count 4.02 M/mm3 (4.1-5.6); Red Cell Distribution Width 14.9 % (11.5-14.0); White Blood Count 8.7 K/mm3 (4.0-10.5)
[2020-12-10 06:23] LABS: ANION GAP 9.9 MEQ/L (5-15); BLOOD UREA NITROGEN 12 mg/dL (9-20); CHLORIDE 100 mmol/L (98-107); Calcium 8.8 mg/dL (8.4-10.2); Carbon Dioxide 30 mmol/L (22-30); Creatinine 1 0.85 mg/dL (0.66-1.25); EST GLOMERULAR FILTRATION RATE > 60.0 ML/MIN; Glucose 85 mg/dL (74-106); Potassium 4.1 mmol/L (3.5-5.1); SODIUM 136 mmol/L (137-145)
[2020-12-10] MEDS ORDERED: PROVENTIL 2.5 MG/3 ML NEB IH SCH (07:00)
[2020-12-10] MEDS ORDERED: ADVAIR 250-50 DISKUS 14 DOSE IH SCH (07:00)
[2020-12-10] MEDS: Advair Hfa 115/21 Common canister IH SCH ×2 (07:21→19:39)
[2020-12-10] MEDS ORDERED: TYLENOL 325 MG ONE (07:26)
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
[2020-12-10] MEDS: ENOXAPARIN SODIUM SQ SCH (09:16)
[2020-12-10] MEDS: MOTRIN 600 MG PO PRN ×2 (09:16→20:05)
[2020-12-10] MEDS: Miralax Powder 17GM PACKET PO SCH (09:18)
[2020-12-10] MEDS: DELTASONE 20 MG PO SCH (09:22)
[2020-12-10] MEDS: Cymbalta 30 MG Capsule PO SCH ×2 (09:22→21:49)
[2020-12-10] MEDS: ECOTRIN 81 MG PO SCH (09:23)
[2020-12-10] MEDS: THERAGRAN MULTIVITAMIN PO SCH (09:23)
[2020-12-10] MEDS: NEURONTIN 300 MG PO SCH ×3 (09:26→21:48)
[2020-12-10] MEDS: DELTASONE 5 MG PO SCH (09:28)
[2020-12-10] MEDS: MYSOLINE 50MG PO SCH ×3 (09:28→21:49)
[2020-12-10] MEDS: Protonix 40MG Tablet PO SCH ×2 (09:31→21:50)
[2020-12-10] MEDS: MYRBETRIQ PO SCH ×2 (09:33→21:49)
[2020-12-10] MEDS: Sodium Chloride 0.9% 1000 ML 1,000 ML IV SCH ×2 (09:35→19:29)
[2020-12-10] MEDS ORDERED: ROCEPHIN 1 Gm-D5w 50 ml Bag** 1 G/50 ML IVPB IV SCH (10:00)
[2020-12-10] MEDS ORDERED: Levofloxacin 500MG/100ML D5W 500 MG/100 ML BAG IV SCH (10:00)
[2020-12-10] MEDS ORDERED: Spiriva 18 Mcg/Cap Inhaler IH SCH (10:00)
[2020-12-10] MEDS: ROCEPHIN 1 Gm-D5w 50 ml Bag** 1 G/50 ML IVPB IV SCH (11:12)
[2020-12-10] MEDS: HUMALOG SQ PRN (12:14)
[2020-12-10] MEDS: Flomax 0.4 MG PO SCH (16:35)
[2020-12-10] MEDS ORDERED: MYRBETRIQ PO SCH (17:00)
[2020-12-10] MEDS: ZOCOR 20MG PO SCH (21:49)
[2020-12-10] MEDS: CLARITIN 10 MG PO SCH (21:50)
[2020-12-10] MEDS: Lantus Insulin SQ SCH (21:50)
[2020-12-10] MEDS: Levofloxacin 500MG/100ML D5W 500 MG/100 ML BAG IV SCH (22:03)
[2020-12-11] MEDS: DUONEB 0.5-3 MG/3 ml Neb IH SCH ×4 (00:38→19:05)
[2020-12-11 06:06] LABS: Absolute Neutrophil Ct (ANC) 5.23 (1.4-6.9); BASOPHIL % 0.1 % (0.0-0.4); Basophil (Absolute #) 0.01 (0-0.4); Eosinophil % 0.1 % (0.00-5.0); Eosinophil (Absolute #) 0.01 (0-0.5); Hematocrit 36.4 % (42-50); Hemoglobin 11.1 gm/dl (12.5-18.0); Lymphocyte (Absolute #) 5.29 (1.0-4.6); Lymphocytes % 46.9 % (24.0-44.0); Mean Cell Volume 99.2 fl (78-100); Mean Corpuscular Hemoglobin 30.2 pg (26-32); Mean Corpuscular Hgb Concent. 30.5 g/dl (32-36); Mean Platelet Volume 10.6 fl (7.5-11.0); Monocyte (Absolute #) 0.74 (0.0-1.3); Monocytes % 6.6 % (0.0-12.0); Neutrophil % 46.3 % (36.0-66.0); Platelet Count 125 K/mm3 (150-450); Red Blood Count 3.67 M/mm3 (4.1-5.6); Red Cell Distribution Width 14.9 % (11.5-14.0); White Blood Count 11.3 K/mm3 (4.0-10.5)
[2020-12-11] MEDS: Sodium Chloride 0.9% 1000 ML 1,000 ML IV SCH ×2 (06:12→19:34)
[2020-12-11 07:04] LABS: ANION GAP 11.1 MEQ/L (5-15); BLOOD UREA NITROGEN 12 mg/dL (9-20); CHLORIDE 102 mmol/L (98-107); Calcium 8.6 mg/dL (8.4-10.2); Carbon Dioxide 30 mmol/L (22-30); Creatinine 1 0.82 mg/dL (0.66-1.25); EST GLOMERULAR FILTRATION RATE > 60.0 ML/MIN; Glucose 189 mg/dL (74-106); Potassium 3.6 mmol/L (3.5-5.1); SODIUM 139 mmol/L (137-145)
[2020-12-11] MEDS: Advair Hfa 115/21 Common canister IH SCH ×2 (07:25→19:05)
[2020-12-11 08:02] LABS: Slide Review 1 YES
[2020-12-11] MEDS: Cymbalta 30 MG Capsule PO SCH ×2 (09:24→21:45)
[2020-12-11] MEDS: ECOTRIN 81 MG PO SCH (09:25)
[2020-12-11] MEDS: MYSOLINE 50MG PO SCH ×3 (09:25→21:47)
[2020-12-11] MEDS: THERAGRAN MULTIVITAMIN PO SCH (09:25)
[2020-12-11] MEDS: DELTASONE 5 MG PO SCH (09:25)
[2020-12-11] MEDS: NEURONTIN 300 MG PO SCH ×3 (09:25→21:48)
[2020-12-11] MEDS: Protonix 40MG Tablet PO SCH ×2 (09:25→21:48)
[2020-12-11] MEDS: DELTASONE 20 MG PO SCH (09:25)
[2020-12-11] MEDS: Flomax 0.4 MG PO SCH (09:25)
[2020-12-11] MEDS: MYRBETRIQ PO SCH ×2 (09:26→21:46)
[2020-12-11] MEDS: ENOXAPARIN SODIUM SQ SCH (09:26)
[2020-12-11] MEDS: Miralax Powder 17GM PACKET PO SCH (09:26)
[2020-12-11] MEDS: ROCEPHIN 1 Gm-D5w 50 ml Bag** 1 G/50 ML IVPB IV SCH (09:27)
[2020-12-11] MEDS: HUMALOG SQ PRN ×3 (12:12→21:48)
[2020-12-11] MEDS: CLARITIN 10 MG PO SCH (21:45)
[2020-12-11] MEDS: Lantus Insulin SQ SCH (21:46)
[2020-12-11] MEDS: Levofloxacin 500MG/100ML D5W 500 MG/100 ML BAG IV SCH (21:46)
[2020-12-11] MEDS: ZOCOR 20MG PO SCH (21:48)
[2020-12-12] MEDS: DUONEB 0.5-3 MG/3 ml Neb IH SCH ×4 (00:23→18:44)
[2020-12-12] MEDS: Advair Hfa 115/21 Common canister IH SCH ×2 (05:24→18:48)
[2020-12-12] MEDS: Sodium Chloride 0.9% 1000 ML 1,000 ML IV SCH ×2 (05:53→19:30)
--- NOTE | 2020-12-12 08:24 | PCM.NOTE ---
Date and Time: 12/12/20817 Subjective Assessment: Pt is tolerating po well. Complains of wheezing. He complains of lower abd pain, thinks it's been going on longer than a few days, for a while, but unsure how much longer (possibly months). He complained of the pain after I palpated his abd. Last BM yesterday per his report. - Review of Systems Constitutional: No Fever Abdominal/Gastrointestinal: No Vomiting Objective Exam General Appearance: no apparent distress, alert Neurologic Exam: cooperative, other (pleasant and conversant. ) Skin Exam: normal color, warm, dry, No rash Eye Exam: eyes nml inspection Ears, Nose, Throat Exam: moist mucous membranes Neck Exam: normal inspection Respiratory Exam: diminished breath sounds, wheezing (throughout), No crackles/rales, No rhonchi Cardiovascular Exam: regular rate/rhythm, normal heart sounds, No murmur Extremity Exam: normal inspection, No pedal edema, No swelling OBJECTIVE DATA Vital Signs: Vital Signs - 24 hr Temp Pulse Resp BP Pulse Ox 12/12/20 07:50 98.2 F 93 H 20 131/61 93 L 12/12/20 05:25 92 H 20 92 L 12/12/20 04:00 98.5 F 80 22 143/67 96 12/12/20 00:26 94 H 16 92 L 12/12/20 00:00 98.9 F 78 24 139/65 97 12/11/20 19:47 98.7 F 84 18 128/72 95 12/11/20 19:09 84 18 95 12/11/20 16:00 97.9 F 100 H 16 115/59 94 L 12/11/20 12:54 95 H 22 93 L 12/11/20 12:00 98.7 F 95 H 16 115/55 91 L Pain Assessment - Last Documented Pain Intensity 0 Pain Scale Used 0-10 Pain Scale Intake and Output: Intake & Output 12/09/20 12/10/20 12/11/20 12/12/20 11:59 11:59 11:59 11:59 Intake Total 1485 4245 4553 Output Total 1999 3350 2950 Balance 802 833 6262 Weight 75.3 kg Lab Results: Lab Results-Last 24 Hours 12/11/20 12/11/20 12/11/20 Range/Units 11:25 15:12 21:12 POC Glucometer 279 H 295 H 321 H (74 to 106) mg/dL 12/12/20 Range/Units 06:53 POC Glucometer 174 H (74 to 106) mg/dL Assessment/Plan (1) Pneumonia Current Visit: Yes Status: Acute Qualifiers: Pneumonia type: due to Klebsiella pneumoniae Laterality: left Lung location: lower lobe of lung Qualified Code(s): J15.0 - Pneumonia due to Klebsiella pneumoniae Assessment & Plan: With wheezing today - will increase his prednisone from 25mg/d to 60mg/d. On rocephin and levaquin. Duonebs q6h. If persistent wheezing, would start IV steroid in place of po. Code(s): J18.9 - PNEUMONIA, UNSPECIFIED ORGANISM (2) COPD (chronic obstructive pulmonary disease) Current Visit: Yes Status: Acute Qualifiers: COPD type: chronic bronchitis Chronic bronchitis type: mixed simple and mucopurulent Qualified Code(s): J41.8 - Mixed simple and mucopurulent chronic bronchitis (3) Diabetes type 2, uncontrolled Current Visit: No Status: Acute Qualifiers: Glycemic state: with hyperglycemia Qualified Code(s): E11.65 - Type 2 diabetes mellitus with hyperglycemia Code(s): E11.65 - TYPE 2 DIABETES MELLITUS WITH HYPERGLYCEMIA (4) DVT prophylaxis Current Visit: Yes Status: Acute Assessment & Plan: on lovenox Code(s): Z29.9 - ENCOUNTER FOR PROPHYLACTIC MEASURES, UNSPECIFIED (5) Fluid/electrolyte/nutrition Current Visit: Yes Status: Acute Assessment & Plan: stephanie po well
[2020-12-12 09:41] LABS: Absolute Neutrophil Ct (ANC) 4.58 (1.4-6.9); BASOPHIL % 0.1 % (0.0-0.4); Basophil (Absolute #) 0.01 (0-0.4); Eosinophil % 2.6 % (0.00-5.0); Eosinophil (Absolute #) 0.27 (0-0.5); Hematocrit 35.9 % (42-50); Lymphocytes % 49.2 % (24.0-44.0); Mean Cell Volume 100.3 fl (78-100); Mean Corpuscular Hemoglobin 30.7 pg (26-32); Mean Corpuscular Hgb Concent. 30.6 g/dl (32-36); Mean Platelet Volume 11.5 fl (7.5-11.0); Monocyte (Absolute #) 0.51 (0.0-1.3); Monocytes % 4.8 % (0.0-12.0); Neutrophil % 43.3 % (36.0-66.0); Platelet Count 121 K/mm3 (150-450); Red Blood Count 3.58 M/mm3 (4.1-5.6); Red Cell Distribution Width 14.8 % (11.5-14.0); White Blood Count 10.6 K/mm3 (4.0-10.5)
[2020-12-12 09:50] LABS: ALBUMIN 3.5 g/dL (3.5-5.0); ALKALINE PHOSPHATASE 41 U/L (38-126); AMYLASE 47 U/L (30-110); BLOOD UREA NITROGEN 8 mg/dL (9-20); CHLORIDE 98 mmol/L (98-107); Calcium 9.4 mg/dL (8.4-10.2); Carbon Dioxide 29 mmol/L (22-30); Creatinine 1 0.68 mg/dL (0.66-1.25); EST GLOMERULAR FILTRATION RATE > 60.0 ML/MIN; Glucose 286 mg/dL (74-106); LIPASE 54 U/L (23-300); Potassium 3.8 mmol/L (3.5-5.1); SGOT/AST 38 U/L (17-59); SGPT/ALT 30 U/L (0-50); SODIUM 136 mmol/L (137-145); Total Protein 6.1 g/dL (6.3-8.2)
[2020-12-12] MEDS: ROCEPHIN 1 Gm-D5w 50 ml Bag** 1 G/50 ML IVPB IV SCH (10:05)
[2020-12-12] MEDS: Miralax Powder 17GM PACKET PO SCH (10:12)
[2020-12-12] MEDS: Cymbalta 30 MG Capsule PO SCH ×2 (10:18→21:45)
[2020-12-12] MEDS: MYRBETRIQ PO SCH ×2 (10:19→21:56)
[2020-12-12] MEDS: MYSOLINE 50MG PO SCH ×3 (10:19→21:45)
[2020-12-12] MEDS: Flomax 0.4 MG PO SCH (10:19)
[2020-12-12] MEDS: THERAGRAN MULTIVITAMIN PO SCH (10:19)
[2020-12-12] MEDS: DELTASONE 20 MG PO SCH (10:19)
[2020-12-12] MEDS: NEURONTIN 300 MG PO SCH ×3 (10:19→21:46)
[2020-12-12] MEDS: Protonix 40MG Tablet PO SCH ×2 (10:19→21:45)
[2020-12-12] MEDS: ECOTRIN 81 MG PO SCH (10:19)
[2020-12-12] MEDS: ENOXAPARIN SODIUM SQ SCH (10:20)
[2020-12-12] MEDS: MOTRIN 600 MG PO PRN (10:27)
--- NOTE | 2020-12-12 12:33 | XRAY ---
Indication: Abdomen pain. Multiple contiguous axial images obtained through the abdomen and pelvis using 80 cc Isovue 370 contrast. Comparison: November 07, 2019. Lung bases demonstrates new mild bibasilar consolidating infiltrates/atelectasis without effusion. Heart not enlarged. Again L2-S1 posterior fusion hardware produces beam artifact. Stomach is markedly distended with food. There is again moderate diffuse scattered fecal debris throughout more than before. 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 Normal air-filled appendix. No free fluid/air. Spleen remains enlarged measuring 13.8 cm. Remaining liver, gallbladder, pancreas, spleen, adrenal glands, kidneys, ureters, and bladder are unremarkable. Stable minimal aortoiliac calcifications. No AAA or pathologic retroperitoneal lymphadenopathy. Osseous structures again demonstrates grade 1 L4 anterolisthesis and mild levorotoscoliosis centered at L2. Stable small fatty right inguinal hernia. Impression: 1. Worsening diffuse fecal stasis. 2. 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 3. New bibasilar consolidating infiltrates versus atelectasis. 4. Stable incidental splenomegaly, chronic bony findings, and small fatty right inguinal hernia.
[2020-12-12] MEDS: HUMALOG SQ PRN ×3 (13:46→21:47)
[2020-12-12] MEDS: CLINDAMYCIN-D5W 600 MG/50 ML*** 600 MG/50 ML BAG IV SCH ×2 (13:46→21:44)
[2020-12-12] MEDS: CLARITIN 10 MG PO SCH (21:45)
[2020-12-12] MEDS: ZOCOR 20MG PO SCH (21:45)
[2020-12-12] MEDS: Lantus Insulin SQ SCH (21:47)
[2020-12-12] MEDS: Levofloxacin 500MG/100ML D5W 500 MG/100 ML BAG IV SCH (22:07)
[2020-12-13] MEDS: DUONEB 0.5-3 MG/3 ml Neb IH SCH ×4 (01:00→19:05)
[2020-12-13] MEDS: CLINDAMYCIN-D5W 600 MG/50 ML*** 600 MG/50 ML BAG IV SCH ×3 (05:58→22:49)
[2020-12-13] MEDS: Sodium Chloride 0.9% 1000 ML 1,000 ML IV SCH ×4 (05:59→19:30)
[2020-12-13] MEDS: Advair Hfa 115/21 Common canister IH SCH ×2 (06:58→19:09)
[2020-12-13] MEDS: HUMALOG SQ PRN ×4 (08:24→22:53)
--- NOTE | 2020-12-13 08:37 | XRAY ---
Indication: Follow-up pneumonia. Comparison: December 09, 2020. Portable apical lordotic chest demonstrates stable left mid to lower lung infiltrate/atelectasis and effusion. Interval right lung clearing. Heart not enlarged. No new cardiopulmonary abnormalities.
[2020-12-13] MEDS ORDERED: EMPAGLIFLOZIN PO SCH (10:00)
[2020-12-13] MEDS: ROCEPHIN 1 Gm-D5w 50 ml Bag** 1 G/50 ML IVPB IV SCH (10:56)
[2020-12-13] MEDS: Protonix 40MG Tablet PO SCH ×2 (10:57→22:52)
[2020-12-13] MEDS: Cymbalta 30 MG Capsule PO SCH ×2 (10:57→22:53)
[2020-12-13] MEDS: NEURONTIN 300 MG PO SCH ×3 (10:57→22:51)
[2020-12-13] MEDS: Miralax Powder 17GM PACKET PO SCH (10:57)
[2020-12-13] MEDS: ENOXAPARIN SODIUM SQ SCH (10:57)
[2020-12-13] MEDS: ECOTRIN 81 MG PO SCH (10:58)
[2020-12-13] MEDS: Flomax 0.4 MG PO SCH (10:58)
[2020-12-13] MEDS: DELTASONE 20 MG PO SCH (10:58)
[2020-12-13] MEDS: THERAGRAN MULTIVITAMIN PO SCH ×2 (10:58→12:21)
[2020-12-13] MEDS: MYSOLINE 50MG PO SCH ×3 (10:58→22:52)
[2020-12-13] MEDS: MYRBETRIQ PO SCH ×2 (10:59→22:51)
[2020-12-13] MEDS: NON-FORMULARY ITEM PO SCH (13:10)
[2020-12-13] MEDS ORDERED: VIT D3 PO SCH (15:00)
[2020-12-13] MEDS ORDERED: CALCIUM PHOSPHATE TRIB PO SCH (15:00)
[2020-12-13] MEDS: Calcium 500MG W/Vit D Tablet PO SCH ×2 (15:15→22:51)
[2020-12-13] MEDS: CLARITIN 10 MG PO SCH (22:51)
[2020-12-13] MEDS: Levofloxacin 500MG/100ML D5W 500 MG/100 ML BAG IV SCH (22:51)
[2020-12-13] MEDS: Lantus Insulin SQ SCH (22:52)
[2020-12-13] MEDS: ZOCOR 20MG PO SCH (22:53)
[2020-12-14] MEDS: DUONEB 0.5-3 MG/3 ml Neb IH SCH ×4 (01:17→19:23)
[2020-12-14 04:42] LABS: Hematocrit 35.6 % (42-50); Hemoglobin 10.9 gm/dl (12.5-18.0); Mean Cell Volume 98.9 fl (78-100); Mean Corpuscular Hemoglobin 30.3 pg (26-32); Mean Corpuscular Hgb Concent. 30.6 g/dl (32-36); Mean Platelet Volume 10.1 fl (7.5-11.0); Platelet Count 188 K/mm3 (150-450); Red Cell Distribution Width 14.5 % (11.5-14.0); White Blood Count 15.3 K/mm3 (4.0-10.5)
[2020-12-14 05:27] LABS: BAND 7 % (0.0-2.0); Lymphocytes 60 % (24-44); Monocyte 2 % (0.0-12.0); Neutrophils 31 % (36.-66.); Platelet Estimate NORMAL (NORMAL); Total Cells Counted 100
[2020-12-14] MEDS: CLINDAMYCIN-D5W 600 MG/50 ML*** 600 MG/50 ML BAG IV SCH ×3 (05:54→21:40)
[2020-12-14] MEDS: Sodium Chloride 0.9% 1000 ML 1,000 ML IV SCH ×2 (06:31→17:32)
[2020-12-14] MEDS: Advair Hfa 115/21 Common canister IH SCH ×2 (07:10→19:23)
--- NOTE | 2020-12-14 09:12 | XRAY ---
Indication: Weakness. Pneumonia. Portable apical lordotic chest demonstrates left mid to lower lung infiltrate/atelectasis/effusion and minimal right base infiltrate/atelectasis similar in appearance to December 09, 2020. Remaining heart and upper lungs unremarkable.
--- NOTE | 2020-12-14 09:12 | XRAY ---
Indication: Right leg pain and swelling. Two-dimensional sonogram and color Doppler imaging of the major venous vessels of the right leg was performed. Comparison: September 01, 2019. Again no thrombus seen in examined deep venous vessels of the right leg including greater saphenous vein. Veins demonstrate normal compressibility. Venous waveforms are normal with and without augmentation. Impression: Right leg continues to be negative for DVT.
[2020-12-14] MEDS: ROCEPHIN 1 Gm-D5w 50 ml Bag** 1 G/50 ML IVPB IV SCH (09:38)
[2020-12-14] MEDS: ENOXAPARIN SODIUM SQ SCH (09:38)
[2020-12-14] MEDS: Cymbalta 30 MG Capsule PO SCH ×2 (09:38→21:30)
[2020-12-14] MEDS: Miralax Powder 17GM PACKET PO SCH (09:38)
[2020-12-14] MEDS: DELTASONE 20 MG PO SCH (09:39)
[2020-12-14] MEDS: NEURONTIN 300 MG PO SCH ×3 (09:39→21:30)
[2020-12-14] MEDS: Calcium 500MG W/Vit D Tablet PO SCH ×3 (09:39→21:30)
[2020-12-14] MEDS: Flomax 0.4 MG PO SCH (09:39)
[2020-12-14] MEDS: Protonix 40MG Tablet PO SCH ×2 (09:39→21:30)
[2020-12-14] MEDS: THERAGRAN MULTIVITAMIN PO SCH (09:39)
[2020-12-14] MEDS: ECOTRIN 81 MG PO SCH (09:39)
[2020-12-14] MEDS: MYSOLINE 50MG PO SCH ×3 (09:40→21:30)
[2020-12-14] MEDS: NON-FORMULARY ITEM PO SCH (09:40)
[2020-12-14] MEDS: MYRBETRIQ PO SCH ×2 (09:40→21:31)
[2020-12-14] MEDS: PATIENT OWN MEDICATION SQ SCH (09:42)
[2020-12-14] MEDS ORDERED: NON-FORMULARY BULK ITEM SQ SCH (10:00)
[2020-12-14] MEDS ORDERED: NON-FORMULARY ITEM (Multivitamin [Multivitamins] 1 EACH) PO SCH (10:00)
[2020-12-14] MEDS: HUMALOG SQ PRN ×3 (12:41→21:29)
[2020-12-14] MEDS: Lantus Insulin SQ SCH (21:29)
[2020-12-14] MEDS: CLARITIN 10 MG PO SCH (21:30)
[2020-12-14] MEDS: ZOCOR 20MG PO SCH (21:30)
[2020-12-14] MEDS: Levofloxacin 500MG/100ML D5W 500 MG/100 ML BAG IV SCH (21:40)
[2020-12-15] MEDS: DUONEB 0.5-3 MG/3 ml Neb IH SCH ×4 (01:53→19:14)
[2020-12-15] MEDS: CLINDAMYCIN-D5W 600 MG/50 ML*** 600 MG/50 ML BAG IV SCH ×3 (05:34→23:06)
[2020-12-15 05:37] LABS: ANION GAP 11.1 MEQ/L (5-15); BLOOD UREA NITROGEN 14 mg/dL (9-20); CHLORIDE 96 mmol/L (98-107); Calcium 10.3 mg/dL (8.4-10.2); Carbon Dioxide 37 mmol/L (22-30); Creatinine 1 0.75 mg/dL (0.66-1.25); EST GLOMERULAR FILTRATION RATE > 60.0 ML/MIN; Glucose 202 mg/dL (74-106); Potassium 3.8 mmol/L (3.5-5.1); SODIUM 140 mmol/L (137-145)
[2020-12-15] MEDS: Sodium Chloride 0.9% 1000 ML 1,000 ML IV SCH (05:39)
[2020-12-15] MEDS: Advair Hfa 115/21 Common canister IH SCH ×2 (06:41→19:18)
[2020-12-15] MEDS: ENOXAPARIN SODIUM SQ SCH (09:24)
[2020-12-15] MEDS: NEURONTIN 300 MG PO SCH ×3 (09:25→23:05)
[2020-12-15] MEDS: ECOTRIN 81 MG PO SCH (09:25)
[2020-12-15] MEDS: Flomax 0.4 MG PO SCH (09:25)
[2020-12-15] MEDS: HUMALOG SQ PRN ×3 (09:25→16:19)
[2020-12-15] MEDS: DELTASONE 20 MG PO SCH (09:25)
[2020-12-15] MEDS: MYSOLINE 50MG PO SCH ×3 (09:26→23:04)
[2020-12-15] MEDS: Protonix 40MG Tablet PO SCH ×2 (09:26→23:05)
[2020-12-15] MEDS: Cymbalta 30 MG Capsule PO SCH ×2 (09:26→23:04)
[2020-12-15] MEDS: THERAGRAN MULTIVITAMIN PO SCH (09:26)
[2020-12-15] MEDS: NON-FORMULARY ITEM PO SCH (09:27)
[2020-12-15] MEDS: Calcium 500MG W/Vit D Tablet PO SCH ×3 (09:27→23:05)
[2020-12-15] MEDS: MYRBETRIQ PO SCH ×2 (09:27→23:06)
[2020-12-15] MEDS: Miralax Powder 17GM PACKET PO SCH (09:28)
[2020-12-15 09:55] LABS: Hematocrit 37.8 % (42-50); Hemoglobin 11.5 gm/dl (12.5-18.0); Mean Cell Volume 99.7 fl (78-100); Mean Corpuscular Hemoglobin 30.3 pg (26-32); Mean Corpuscular Hgb Concent. 30.4 g/dl (32-36); Mean Platelet Volume 9.9 fl (7.5-11.0); Platelet Count 192 K/mm3 (150-450); Red Blood Count 3.79 M/mm3 (4.1-5.6); Red Cell Distribution Width 14.7 % (11.5-14.0); White Blood Count 14.7 K/mm3 (4.0-10.5)
[2020-12-15 10:29] LABS: ATYPICAL LYMPHS 5 %; BAND 2 % (0.0-2.0); Eosinophil 1 % (0.00-3.0); Lymphocytes 57 % (24-44); Monocyte 4 % (0.0-12.0); Neutrophils 31 % (36.-66.); Nucleated Red Blood Cell 1 %; Total Cells Counted 100
[2020-12-15] MEDS: Zosyn 3.375 GM Vial 3.375 GM in Sodium Chloride 100ML MINI-BAG PLUS 100 ML IV SCH ×2 (14:15→20:40)
[2020-12-15] MEDS: Lantus Insulin SQ SCH (22:50)
[2020-12-15] MEDS ORDERED: Lantus Insulin SQ ONE (23:00)
[2020-12-15] MEDS ORDERED: HUMALOG SQ ONE (23:00)
[2020-12-15] MEDS: ZOCOR 20MG PO SCH (23:04)
[2020-12-15] MEDS: CLARITIN 10 MG PO SCH (23:06)
[2020-12-16] MEDS: DUONEB 0.5-3 MG/3 ml Neb IH SCH ×4 (00:37→18:57)
[2020-12-16] MEDS ORDERED: HUMALOG IV ONE (00:53)
[2020-12-16] MEDS: Zosyn 3.375 GM Vial 3.375 GM in Sodium Chloride 100ML MINI-BAG PLUS 100 ML IV SCH ×4 (01:02→21:43)
[2020-12-16] MEDS: Sodium Chloride 0.9% 1000 ML 1,000 ML IV SCH (03:47)
[2020-12-16] MEDS: CLINDAMYCIN-D5W 600 MG/50 ML*** 600 MG/50 ML BAG IV SCH ×3 (06:07→22:41)
[2020-12-16 07:04] LABS: Hematocrit 34.9 % (42-50); Hemoglobin 10.6 gm/dl (12.5-18.0); Mean Cell Volume 99.1 fl (78-100); Mean Corpuscular Hemoglobin 30.1 pg (26-32); Mean Corpuscular Hgb Concent. 30.4 g/dl (32-36); Mean Platelet Volume 9.8 fl (7.5-11.0); Platelet Count 203 K/mm3 (150-450); Red Blood Count 3.52 M/mm3 (4.1-5.6); Red Cell Distribution Width 14.7 % (11.5-14.0); White Blood Count 14.7 K/mm3 (4.0-10.5)
[2020-12-16] MEDS: Advair Hfa 115/21 Common canister IH SCH ×2 (07:27→19:05)
[2020-12-16 07:28] LABS: ANION GAP 8.3 MEQ/L (5-15); BLOOD UREA NITROGEN 13 mg/dL (9-20); CHLORIDE 95 mmol/L (98-107); Calcium 9.5 mg/dL (8.4-10.2); Carbon Dioxide 38 mmol/L (22-30); Creatinine 1 0.69 mg/dL (0.66-1.25); EST GLOMERULAR FILTRATION RATE > 60.0 ML/MIN; Glucose 202 mg/dL (74-106); Potassium 3.3 mmol/L (3.5-5.1); SODIUM 138 mmol/L (137-145)
[2020-12-16] MEDS: HUMALOG SQ PRN ×3 (08:20→21:55)
[2020-12-16 08:35] LABS: Lymphocytes 67 % (24-44); Monocyte 3 % (0.0-12.0); Neutrophils 30 % (36.-66.); Total Cells Counted 100
[2020-12-16 08:40] LABS: Platelet Estimate NORMAL (NORMAL); Polychromasia 1+
[2020-12-16] MEDS ORDERED: PHARMACY DOSING REQUEST MC ONE (09:10)
[2020-12-16] MEDS ORDERED: SODIUM CHLORIDE 0.9% IV SCH ×2 (10:30)
[2020-12-16] MEDS ORDERED: AMINOPHYLLINE IV SCH ×2 (10:30)
[2020-12-16] MEDS ORDERED: Aminophylline 500 MG/20 ML*** 500 MG in Sodium Chloride 0.9% 500 ML 480 ML IV SCH (11:30)
[2020-12-16] MEDS: Calcium 500MG W/Vit D Tablet PO SCH ×3 (11:37→21:53)
[2020-12-16] MEDS: NEURONTIN 300 MG PO SCH ×3 (11:37→21:54)
[2020-12-16] MEDS: Cymbalta 30 MG Capsule PO SCH ×2 (11:37→21:53)
[2020-12-16] MEDS: THERAGRAN MULTIVITAMIN PO SCH (11:37)
[2020-12-16] MEDS: ECOTRIN 81 MG PO SCH (11:37)
[2020-12-16] MEDS: DELTASONE 20 MG PO SCH (11:37)
[2020-12-16] MEDS: MYRBETRIQ PO SCH ×2 (11:38→21:54)
[2020-12-16] MEDS: MYSOLINE 50MG PO SCH ×3 (11:38→21:53)
[2020-12-16] MEDS: Flomax 0.4 MG PO SCH (11:38)
[2020-12-16] MEDS: Protonix 40MG Tablet PO SCH ×2 (11:38→21:54)
[2020-12-16] MEDS: NON-FORMULARY ITEM PO SCH (11:39)
[2020-12-16] MEDS: Miralax Powder 17GM PACKET PO SCH (11:40)
[2020-12-16] MEDS: ENOXAPARIN SODIUM SQ SCH (11:44)
[2020-12-16] MEDS: CLARITIN 10 MG PO SCH (21:54)
[2020-12-16] MEDS: ZOCOR 20MG PO SCH (21:54)
[2020-12-16] MEDS: Lantus Insulin SQ SCH (21:54)
[2020-12-17] MEDS: DUONEB 0.5-3 MG/3 ml Neb IH SCH ×4 (00:13→19:46)
[2020-12-17] MEDS: Zosyn 3.375 GM Vial 3.375 GM in Sodium Chloride 100ML MINI-BAG PLUS 100 ML IV SCH ×4 (02:26→20:32)
[2020-12-17] MEDS: CLINDAMYCIN-D5W 600 MG/50 ML*** 600 MG/50 ML BAG IV SCH ×3 (05:56→22:03)
[2020-12-17 07:09] LABS: ALBUMIN 3.6 g/dL (3.5-5.0); ALKALINE PHOSPHATASE 47 U/L (38-126); ANION GAP 9.9 MEQ/L (5-15); BLOOD UREA NITROGEN 14 mg/dL (9-20); CHLORIDE 96 mmol/L (98-107); Calcium 9.8 mg/dL (8.4-10.2); Carbon Dioxide 35 mmol/L (22-30); Creatinine 1 0.85 mg/dL (0.66-1.25); EST GLOMERULAR FILTRATION RATE > 60.0 ML/MIN; Glucose 182 mg/dL (74-106); SGOT/AST 38 U/L (17-59); SGPT/ALT 38 U/L (0-50); SODIUM 137 mmol/L (137-145); Total Protein 6.3 g/dL (6.3-8.2)
[2020-12-17 07:11] LABS: Hematocrit 36.2 % (42-50); Hemoglobin 11.1 gm/dl (12.5-18.0); Mean Cell Volume 99.2 fl (78-100); Mean Corpuscular Hemoglobin 30.4 pg (26-32); Mean Corpuscular Hgb Concent. 30.7 g/dl (32-36); Mean Platelet Volume 9.7 fl (7.5-11.0); Platelet Count 218 K/mm3 (150-450); Red Blood Count 3.65 M/mm3 (4.1-5.6); Red Cell Distribution Width 14.7 % (11.5-14.0); White Blood Count 14.5 K/mm3 (4.0-10.5)
[2020-12-17] MEDS: Advair Hfa 115/21 Common canister IH SCH ×2 (07:24→19:47)
[2020-12-17 07:57] LABS: Eosinophil 1 % (0.00-3.0); Lymphocytes 53 % (24-44); Monocyte 3 % (0.0-12.0); Neutrophils 43 % (36.-66.); Total Cells Counted 100
[2020-12-17 07:58] LABS: Platelet Estimate NORMAL (NORMAL)
[2020-12-17] MEDS: HUMALOG SQ PRN ×4 (09:55→22:06)
[2020-12-17] MEDS: THERAGRAN MULTIVITAMIN PO SCH (10:58)
[2020-12-17] MEDS: Protonix 40MG Tablet PO SCH ×2 (10:58→22:06)
[2020-12-17] MEDS: NEURONTIN 300 MG PO SCH ×3 (10:58→22:06)
[2020-12-17] MEDS: DELTASONE 20 MG PO SCH (10:58)
[2020-12-17] MEDS: Cymbalta 30 MG Capsule PO SCH ×2 (10:58→22:05)
[2020-12-17] MEDS: ECOTRIN 81 MG PO SCH (10:59)
[2020-12-17] MEDS: Calcium 500MG W/Vit D Tablet PO SCH ×3 (10:59→22:06)
[2020-12-17] MEDS: MYRBETRIQ PO SCH ×2 (10:59→22:15)
[2020-12-17] MEDS: MYSOLINE 50MG PO SCH ×3 (10:59→22:05)
[2020-12-17] MEDS: NON-FORMULARY ITEM PO SCH (10:59)
[2020-12-17] MEDS: Flomax 0.4 MG PO SCH (10:59)
[2020-12-17] MEDS: ENOXAPARIN SODIUM SQ SCH (11:05)
[2020-12-17] MEDS: Miralax Powder 17GM PACKET PO SCH (11:54)
[2020-12-17] MEDS: Aminophylline 500 MG/20 ML*** 500 MG in Sodium Chloride 0.9% 500 ML 480 ML IV SCH (20:51)
[2020-12-17] MEDS: CLARITIN 10 MG PO SCH (22:05)
[2020-12-17] MEDS: Lantus Insulin SQ SCH (22:06)
[2020-12-17] MEDS: ZOCOR 20MG PO SCH (22:06)
[2020-12-18] MEDS: DUONEB 0.5-3 MG/3 ml Neb IH SCH ×4 (00:48→19:20)
[2020-12-18] MEDS: Zosyn 3.375 GM Vial 3.375 GM in Sodium Chloride 100ML MINI-BAG PLUS 100 ML IV SCH ×4 (02:23→19:48)
[2020-12-18 05:35] LABS: Hematocrit 35.9 % (42-50); Hemoglobin 10.9 gm/dl (12.5-18.0); Mean Cell Volume 98.4 fl (78-100); Mean Corpuscular Hemoglobin 29.9 pg (26-32); Mean Corpuscular Hgb Concent. 30.4 g/dl (32-36); Mean Platelet Volume 9.7 fl (7.5-11.0); Platelet Count 240 K/mm3 (150-450); Red Blood Count 3.65 M/mm3 (4.1-5.6); Red Cell Distribution Width 14.5 % (11.5-14.0); White Blood Count 16.2 K/mm3 (4.0-10.5)
[2020-12-18 05:54] LABS: ALBUMIN 3.9 g/dL (3.5-5.0); ALKALINE PHOSPHATASE 44 U/L (38-126); ANION GAP 9.9 MEQ/L (5-15); BLOOD UREA NITROGEN 14 mg/dL (9-20); CHLORIDE 95 mmol/L (98-107); Calcium 9.9 mg/dL (8.4-10.2); Carbon Dioxide 36 mmol/L (22-30); Creatinine 1 0.75 mg/dL (0.66-1.25); EST GLOMERULAR FILTRATION RATE > 60.0 ML/MIN; Glucose 196 mg/dL (74-106); Potassium 3.9 mmol/L (3.5-5.1); SGOT/AST 39 U/L (17-59); SGPT/ALT 41 U/L (0-50); SODIUM 138 mmol/L (137-145); Total Protein 6.6 g/dL (6.3-8.2)
[2020-12-18] MEDS: CLINDAMYCIN-D5W 600 MG/50 ML*** 600 MG/50 ML BAG IV SCH ×3 (06:10→21:29)
[2020-12-18] MEDS: Advair Hfa 115/21 Common canister IH SCH ×2 (07:13→19:20)
[2020-12-18 07:36] LABS: BAND 3 % (0.0-2.0); Eosinophil 1 % (0.00-3.0); Lymphocytes 52 % (24-44); Neutrophils 44 % (36.-66.); Nucleated Red Blood Cell 1 %; Total Cells Counted 100
[2020-12-18 07:38] LABS: Platelet Estimate NORMAL (NORMAL)
[2020-12-18 07:39] LABS: ANISOCYTOSIS 1+; Poikilocytosis 1+
[2020-12-18] MEDS: ECOTRIN 81 MG PO SCH (10:35)
[2020-12-18] MEDS: Calcium 500MG W/Vit D Tablet PO SCH ×3 (10:35→21:30)
[2020-12-18] MEDS: Cymbalta 30 MG Capsule PO SCH ×2 (10:35→21:30)
[2020-12-18] MEDS: MYSOLINE 50MG PO SCH ×3 (10:36→21:30)
[2020-12-18] MEDS: THERAGRAN MULTIVITAMIN PO SCH (10:36)
[2020-12-18] MEDS: NON-FORMULARY ITEM PO SCH (10:36)
[2020-12-18] MEDS: Protonix 40MG Tablet PO SCH ×2 (10:36→21:31)
[2020-12-18] MEDS: Flomax 0.4 MG PO SCH (10:36)
[2020-12-18] MEDS: MYRBETRIQ PO SCH ×2 (10:36→21:31)
[2020-12-18] MEDS: NEURONTIN 300 MG PO SCH ×3 (10:36→21:30)
[2020-12-18] MEDS: DELTASONE 20 MG PO SCH (10:36)
[2020-12-18] MEDS: Miralax Powder 17GM PACKET PO SCH (10:37)
[2020-12-18] MEDS: ENOXAPARIN SODIUM SQ SCH (11:10)
[2020-12-18] MEDS: HUMALOG SQ PRN ×3 (12:16→21:30)
[2020-12-18] MEDS: Aminophylline 500 MG/20 ML*** 500 MG in Sodium Chloride 0.9% 500 ML 480 ML IV SCH (19:53)
--- NOTE | 2020-12-18 21:08 | PCM.NOTE ---
Date and Time: 12/18/202104 Subjective Assessment: Patient seen and examined this am. He reports he still has a cough. He reports that he is at times still short of breath. He did report some tenderness of his right miranda. OBJECTIVE DATA Vital Signs: Vital Signs - 24 hr Temp Pulse Resp BP Pulse Ox 12/18/20 20:00 97.8 F 84 22 127/64 94 L 12/18/20 19:21 80 20 91 L 12/18/20 16:00 98.4 F 90 20 136/65 96 12/18/20 13:51 95 H 22 91 L 12/18/20 11:59 98.2 F 76 20 126/61 93 L 12/18/20 08:00 98.3 F 86 22 129/72 91 L 12/18/20 07:14 90 24 90 L 12/18/20 04:00 98.2 F 87 19 142/63 96 12/18/20 01:22 93 L 12/18/20 00:48 91 H 21 94 L 12/18/20 00:00 98.3 F 94 H 20 135/61 94 L Pain Assessment - Last Documented Pain Intensity 0 Pain Scale Used 0-10 Pain Scale Intake and Output: Intake & Output 12/16/20 12/17/20 12/18/20 12/19/20 11:59 11:59 11:59 11:59 Intake Total 2250 1929 3029 1040 Output Total 2375 1725 4050 2725 Balance -125 647 -8106 -1919 Lab Results: Lab Results-Last 24 Hours 12/16/20 12/17/20 12/18/20 Range/Units 06:30 21:43 05:05 WBC 16.2 H (4.0-10.5) K/mm3 RBC 3.65 L (4.1-5.6) M/mm3 Hgb 10.9 L (12.5-18.0) gm/dl Hct 35.9 L (42-50) % MCV 98.4 (78-100) fl MCH 29.9 (26-32) pg MCHC 30.4 L (32-36) g/dl RDW 14.5 H (11.5-14.0) % Plt Count 240 (150-450) K/mm3 MPV 9.7 (7.5-11.0) fl Segmented Neutrophils 30 L 44 (36.-66.) % Band Neutrophils 3 H (0.0-2.0) % Lymphocytes (Manual) 67 H 52 H (24-44) % Monocytes (Manual) 3 (0.0-12.0) % Eosinophils (Manual) 1 (0.00-3.0) % Nucleated RBCs 1 % Platelet Estimate NORMAL NORMAL (NORMAL) RBC Morphology ABNORMAL ABNORMAL Polychromasia 1+ Poikilocytosis 1+ Anisocytosis 1+ Sodium (137-145) mmol/L Potassium (3.5-5.1) mmol/L Chloride (98-107) mmol/L Carbon Dioxide (22-30) mmol/L Anion Gap (5-15) MEQ/L BUN (9-20) mg/dL Creatinine (0.66-1.25) mg/dL Estimated GFR ML/MIN Glucose (74-106) mg/dL POC Glucometer 427 H (74 to 106) mg/dL Hemoglobin A1c (4.5-6.0) % Calcium (8.4-10.2) mg/dL Total Bilirubin (0.2-1.3) mg/dL AST (17-59) U/L ALT (0-50) U/L Alkaline Phosphatase (38-126) U/L Serum Total Protein (6.3-8.2) g/dL Albumin (3.5-5.0) g/dL Valproic Acid (50-100) ug/mL Theophylline (10-20) ug/mL 12/18/20 12/18/20 12/18/20 Range/Units 05:05 05:05 05:20 WBC (4.0-10.5) K/mm3 RBC (4.1-5.6) M/mm3 Hgb (12.5-18.0) gm/dl Hct (42-50) % MCV (78-100) fl MCH (26-32) pg MCHC (32-36) g/dl RDW (11.5-14.0) % Plt Count (150-450) K/mm3 MPV (7.5-11.0) fl Segmented Neutrophils (36.-66.) % Band Neutrophils (0.0-2.0) % Lymphocytes (Manual) (24-44) % Monocytes (Manual) (0.0-12.0) % Eosinophils (Manual) (0.00-3.0) % Nucleated RBCs % Platelet Estimate (NORMAL) RBC Morphology Polychromasia Poikilocytosis Anisocytosis Sodium 138 (137-145) mmol/L Potassium 3.9 (3.5-5.1) mmol/L Chloride 95 L (98-107) mmol/L Carbon Dioxide 36 H (22-30) mmol/L Anion Gap 9.9 (5-15) MEQ/L BUN 14 (9-20) mg/dL Creatinine 0.75 (0.66-1.25) mg/dL Estimated GFR > 60.0 ML/MIN Glucose 196 H (74-106) mg/dL POC Glucometer (74 to 106) mg/dL Hemoglobin A1c 7.56 H (4.5-6.0) % Calcium 9.9 (8.4-10.2) mg/dL Total Bilirubin 0.30 (0.2-1.3) mg/dL AST 39 (17-59) U/L ALT 41 (0-50) U/L Alkaline Phosphatase 44 (38-126) U/L Serum Total Protein 6.6 (6.3-8.2) g/dL Albumin 3.9 (3.5-5.0) g/dL Valproic Acid (50-100) ug/mL Theophylline 3.6 L (10-20) ug/mL 12/18/20 12/18/20 12/18/20 Range/Units 06:35 07:17 11:16 WBC (4.0-10.5) K/mm3 RBC (4.1-5.6) M/mm3 Hgb (12.5-18.0) gm/dl Hct (42-50) % MCV (78-100) fl MCH (26-32) pg MCHC (32-36) g/dl RDW (11.5-14.0) % Plt Count (150-450) K/mm3 MPV (7.5-11.0) fl Segmented Neutrophils (36.-66.) % Band Neutrophils (0.0-2.0) % Lymphocytes (Manual) (24-44) % Monocytes (Manual) (0.0-12.0) % Eosinophils (Manual) (0.00-3.0) % Nucleated RBCs % Platelet Estimate (NORMAL) RBC Morphology Polychromasia Poikilocytosis Anisocytosis Sodium (137-145) mmol/L Potassium (3.5-5.1) mmol/L Chloride (98-107) mmol/L Carbon Dioxide (22-30) mmol/L Anion Gap (5-15) MEQ/L BUN (9-20) mg/dL Creatinine (0.66-1.25) mg/dL Estimated GFR ML/MIN Glucose (74-106) mg/dL POC Glucometer 151 H 327 H (74 to 106) mg/dL Hemoglobin A1c (4.5-6.0) % Calcium (8.4-10.2) mg/dL Total Bilirubin (0.2-1.3) mg/dL AST (17-59) U/L ALT (0-50) U/L Alkaline Phosphatase (38-126) U/L Serum Total Protein (6.3-8.2) g/dL Albumin (3.5-5.0) g/dL Valproic Acid 62.3 (50-100) ug/mL Theophylline (10-20) ug/mL 12/18/20 12/18/20 Range/Units 16:03 20:20 WBC (4.0-10.5) K/mm3 RBC (4.1-5.6) M/mm3 Hgb (12.5-18.0) gm/dl Hct (42-50) % MCV (78-100) fl MCH (26-32) pg MCHC (32-36) g/dl RDW (11.5-14.0) % Plt Count (150-450) K/mm3 MPV (7.5-11.0) fl Segmented Neutrophils (36.-66.) % Band Neutrophils (0.0-2.0) % Lymphocytes (Manual) (24-44) % Monocytes (Manual) (0.0-12.0) % Eosinophils (Manual) (0.00-3.0) % Nucleated RBCs % Platelet Estimate (NORMAL) RBC Morphology Polychromasia Poikilocytosis Anisocytosis Sodium (137-145) mmol/L Potassium (3.5-5.1) mmol/L Chloride (98-107) mmol/L Carbon Dioxide (22-30) mmol/L Anion Gap (5-15) MEQ/L BUN (9-20) mg/dL Creatinine (0.66-1.25) mg/dL Estimated GFR ML/MIN Glucose (74-106) mg/dL POC Glucometer 303 H 260 H (74 to 106) mg/dL Hemoglobin A1c (4.5-6.0) % Calcium (8.4-10.2) mg/dL Total Bilirubin (0.2-1.3) mg/dL AST (17-59) U/L ALT (0-50) U/L Alkaline Phosphatase (38-126) U/L Serum Total Protein (6.3-8.2) g/dL Albumin (3.5-5.0) g/dL Valproic Acid (50-100) ug/mL Theophylline (10-20) ug/mL Multi-Disciplinary Progress Notes: Multi-Disciplinary Progress Notes 12/18/20 12:16 Case Management Note by Nadege Brand PATIENT STILL ACUTELY ILL ON AMINOPHYLLINE DRIP. PER SISTER- Felicia ARRIAGAENMANUEL COMING IN TODAY TO SEE PATIENT TO SEE IF HE NEEDS A BRONCHOSCOPY. WILL CONTINUE TO FOLLOW Initialized on 12/18/20 12:16 - END OF NOTE 12/18/20 06:00 Respiratory Note by Eli Schumacher THE PT WORE HIS CPAP FOR APPROXIMATELY 5 HOURS LAST NIGHT. Initialized on 12/18/20 06:00 - END OF NOTE Assessment/Plan (1) COPD (chronic obstructive pulmonary disease) Current Visit: Yes Status: Acute Qualifiers: COPD type: chronic bronchitis Chronic bronchitis type: mixed simple and mucopurulent Qualified Code(s): J41.8 - Mixed simple and mucopurulent chronic bronchitis (2) Aspiration pneumonia Current Visit: No Status: Acute Code(s): J69.0 - PNEUMONITIS DUE TO INHA LATION OF FOOD AND VOMIT
[2020-12-18] MEDS: Lantus Insulin SQ SCH (21:29)
[2020-12-18] MEDS: ZOCOR 20MG PO SCH (21:30)
[2020-12-18] MEDS: CLARITIN 10 MG PO SCH (21:30)
[2020-12-19] MEDS: DUONEB 0.5-3 MG/3 ml Neb IH SCH ×4 (00:29→19:33)
[2020-12-19] MEDS: Zosyn 3.375 GM Vial 3.375 GM in Sodium Chloride 100ML MINI-BAG PLUS 100 ML IV SCH ×4 (02:25→20:25)
[2020-12-19] MEDS: CLINDAMYCIN-D5W 600 MG/50 ML*** 600 MG/50 ML BAG IV SCH ×3 (05:22→21:41)
[2020-12-19] MEDS: Advair Hfa 115/21 Common canister IH SCH ×2 (07:00→19:33)
[2020-12-19] MEDS: ENOXAPARIN SODIUM SQ SCH (10:58)
[2020-12-19] MEDS: Protonix 40MG Tablet PO SCH ×2 (10:59→21:44)
[2020-12-19] MEDS: NEURONTIN 300 MG PO SCH ×3 (10:59→21:43)
[2020-12-19] MEDS: MYSOLINE 50MG PO SCH ×3 (10:59→21:43)
[2020-12-19] MEDS: Flomax 0.4 MG PO SCH (10:59)
[2020-12-19] MEDS: ECOTRIN 81 MG PO SCH (10:59)
[2020-12-19] MEDS: THERAGRAN MULTIVITAMIN PO SCH (10:59)
[2020-12-19] MEDS: DELTASONE 20 MG PO SCH (10:59)
[2020-12-19] MEDS: Calcium 500MG W/Vit D Tablet PO SCH ×3 (10:59→21:41)
[2020-12-19] MEDS: Cymbalta 30 MG Capsule PO SCH ×2 (10:59→21:41)
--- NOTE | 2020-12-19 10:59 | CONS ---
CONSULT DATE: 12/18/2020 REASON FOR CONSULT: Abnormal x-ray, shortness of breath. HISTORY: Blue Bell is a 65 year-old male with history of chronic obstructive pulmonary disease, well known to me, who has been hospitalized with complaints of cough, shortness of breath. He was apparently seen at Dr. Gomez's office about three days prior to this admission and was diagnosed with pneumonia. He was treated with oral antibiotic with some improvement in pulmonary symptoms although he got progressively weak with difficulty in walking and developed chills. The patient's x-ray on admission showed bilateral infiltrates. In addition, he was noted to have significant bronchospasm. He has been treated with bronchodilators, continuation of home antibiotic and steroids. His lab work up had revealed accelerated glycemic control. He had been continued on antiepileptic medications. The patient was started on IV aminophylline drip which has been continued. This appears to have helped the patient. His white count is now gradually declining and clinically he appears improved. At the time of my evaluation the patient is sitting in a chair, he is able to carry out a normal conversation. He does report feeling significantly better since admission. He has very minimal cough. He was able to ambulate earlier. He remains on oxygen via nasal cannula at 4 liters. PAST MEDICAL HISTORY: Positive for history of obstructive airway disease, seizure disorder, allergic rhinitis, diabetes mellitus. PAST SURGICAL HISTORY: No recent surgery. PERSONAL AND SOCIAL HISTORY: He lives with his sister who is also his POA. MEDICATIONS: Medications reviewed. ALLERGIES: ALLERGIES NOTED. PHYSICAL EXAMINATION: An elderly male appears comfortable, able to carry out conversation. Vital signs noted. HEENT: Normocephalic. Oral exam shows small oropharynx. NECK: Supple. CVS: First and second heart sounds are normal, regular, rhythmic. RESPIRATORY: Shows diminished breath sounds bilateral, rhonchi heard. ABDOMEN: Obese. EXTREMITIES: No significant edema noted. LABORATORY DATA AND TESTS: White count 14.7, hemoglobin 10.6, hematocrit 35, PLT 203,000. Valproic acid is 63. Theophylline level 3.6. Sodium 138, potassium 3.9, chloride 95, bicarb 36, glucose 196, BUN 14, creatinine 0.7. Radiologic tests reviewed. ASSESSMENT: This is a 65 year old male admitted with: 1) Bilateral community acquired pneumonia. 2) Underlying chronic obstructive pulmonary disease with exacerbation. 3) Hypoxemia. 4) Likely hypercapnia with elevated bicarb on BNP. 5) Diabetes mellitus. 6) Comorbids as listed above. RECOMMENDATIONS: 1) The patient appears to be improving with current therapy. 2) Will recommend continuation of IV aminophylline drip at least another 24 hours. 3) Continue home medications. 4) Deep vein thrombosis and GI prophylaxis. I will be available to assist in his care as needed. Thank you for allowing me to participate in the care of Maricao Ray.
[2020-12-19] MEDS: NON-FORMULARY ITEM PO SCH (11:00)
[2020-12-19] MEDS: Miralax Powder 17GM PACKET PO SCH (11:01)
[2020-12-19] MEDS: MYRBETRIQ PO SCH ×2 (12:24→21:42)
[2020-12-19] MEDS: NYSTOP 30 GM CREAM TOP SCH ×2 (12:25→21:43)
[2020-12-19] MEDS: HUMALOG SQ PRN ×2 (12:25→16:52)
[2020-12-19] MEDS: Aminophylline 500 MG/20 ML*** 500 MG in Sodium Chloride 0.9% 500 ML 480 ML IV SCH (16:53)
[2020-12-19] MEDS: CLARITIN 10 MG PO SCH (21:41)
[2020-12-19] MEDS: Lantus Insulin SQ SCH (21:42)
[2020-12-19] MEDS: ZOCOR 20MG PO SCH (21:44)
[2020-12-20] MEDS: Zosyn 3.375 GM Vial 3.375 GM in Sodium Chloride 100ML MINI-BAG PLUS 100 ML IV SCH ×4 (01:48→19:29)
[2020-12-20 05:50] LABS: Hematocrit 35.6 % (42-50); Hemoglobin 10.9 gm/dl (12.5-18.0); Mean Cell Volume 98.6 fl (78-100); Mean Corpuscular Hemoglobin 30.2 pg (26-32); Mean Corpuscular Hgb Concent. 30.6 g/dl (32-36); Mean Platelet Volume 9.4 fl (7.5-11.0); Platelet Count 220 K/mm3 (150-450); Red Blood Count 3.61 M/mm3 (4.1-5.6); Red Cell Distribution Width 14.6 % (11.5-14.0)
[2020-12-20 06:16] LABS: ANION GAP 8.5 MEQ/L (5-15); BLOOD UREA NITROGEN 15 mg/dL (9-20); CHLORIDE 98 mmol/L (98-107); Calcium 9.6 mg/dL (8.4-10.2); Carbon Dioxide 34 mmol/L (22-30); Creatinine 1 0.77 mg/dL (0.66-1.25); EST GLOMERULAR FILTRATION RATE > 60.0 ML/MIN; Glucose 172 mg/dL (74-106); Potassium 3.9 mmol/L (3.5-5.1); SODIUM 137 mmol/L (137-145)
[2020-12-20 06:23] LABS: BAND 3 % (0.0-2.0); Eosinophil 3 % (0.00-3.0); Lymphocytes 54 % (24-44); Monocyte 6 % (0.0-12.0); Neutrophils 34 % (36.-66.); Total Cells Counted 100
[2020-12-20 06:24] LABS: Platelet Estimate NORMAL (NORMAL)
[2020-12-20] MEDS: CLINDAMYCIN-D5W 600 MG/50 ML*** 600 MG/50 ML BAG IV SCH ×3 (06:26→21:35)
[2020-12-20] MEDS: DUONEB 0.5-3 MG/3 ml Neb IH SCH ×4 (07:08→19:49)
[2020-12-20] MEDS: Advair Hfa 115/21 Common canister IH SCH ×2 (07:10→19:49)
[2020-12-20] MEDS: HUMALOG SQ PRN ×4 (09:00→21:38)
--- NOTE | 2020-12-20 09:01 | XRAY ---
Indication: Follow-up pneumonia. Comparison: December 14, 2020. Portable apical lordotic chest improved with mild clearing of previous bibasilar infiltrates/atelectasis and left effusion with mild residual. Remaining heart and lungs unremarkable.
[2020-12-20] MEDS: ENOXAPARIN SODIUM SQ SCH (11:13)
[2020-12-20] MEDS: Cymbalta 30 MG Capsule PO SCH ×2 (11:13→21:36)
[2020-12-20] MEDS: Protonix 40MG Tablet PO SCH ×2 (11:14→21:36)
[2020-12-20] MEDS: Calcium 500MG W/Vit D Tablet PO SCH ×3 (11:14→21:36)
[2020-12-20] MEDS: MYRBETRIQ PO SCH ×2 (11:14→21:37)
[2020-12-20] MEDS: DELTASONE 20 MG PO SCH (11:14)
[2020-12-20] MEDS: NEURONTIN 300 MG PO SCH ×3 (11:14→21:36)
[2020-12-20] MEDS: ECOTRIN 81 MG PO SCH (11:15)
[2020-12-20] MEDS: Flomax 0.4 MG PO SCH (11:15)
[2020-12-20] MEDS: MYSOLINE 50MG PO SCH ×3 (11:15→21:37)
[2020-12-20] MEDS: NON-FORMULARY ITEM PO SCH (11:15)
[2020-12-20] MEDS: NYSTOP 30 GM CREAM TOP SCH ×2 (11:16→21:38)
[2020-12-20] MEDS: Miralax Powder 17GM PACKET PO SCH (11:16)
[2020-12-20] MEDS: THERAGRAN MULTIVITAMIN PO SCH (11:16)
[2020-12-20] MEDS: Aminophylline 500 MG/20 ML*** 500 MG in Sodium Chloride 0.9% 500 ML 480 ML IV SCH (13:21)
[2020-12-20] MEDS: ZOCOR 20MG PO SCH (21:36)
[2020-12-20] MEDS: CLARITIN 10 MG PO SCH (21:36)
[2020-12-20] MEDS: Lantus Insulin SQ SCH (21:38)
[2020-12-21] MEDS: DUONEB 0.5-3 MG/3 ml Neb IH SCH ×3 (00:48→13:17)
[2020-12-21] MEDS: Zosyn 3.375 GM Vial 3.375 GM in Sodium Chloride 100ML MINI-BAG PLUS 100 ML IV SCH ×2 (02:10→08:01)
[2020-12-21 05:16] LABS: Hematocrit 35.9 % (42-50); Hemoglobin 10.9 gm/dl (12.5-18.0); Mean Cell Volume 98.6 fl (78-100); Mean Corpuscular Hemoglobin 29.9 pg (26-32); Mean Corpuscular Hgb Concent. 30.4 g/dl (32-36); Mean Platelet Volume 9.8 fl (7.5-11.0); Platelet Count 228 K/mm3 (150-450); Red Blood Count 3.64 M/mm3 (4.1-5.6); Red Cell Distribution Width 14.7 % (11.5-14.0); White Blood Count 17.9 K/mm3 (4.0-10.5)
[2020-12-21 05:36] LABS: ANION GAP 11.3 MEQ/L (5-15); BLOOD UREA NITROGEN 17 mg/dL (9-20); CHLORIDE 97 mmol/L (98-107); Calcium 9.2 mg/dL (8.4-10.2); Carbon Dioxide 32 mmol/L (22-30); Creatinine 1 0.76 mg/dL (0.66-1.25); EST GLOMERULAR FILTRATION RATE > 60.0 ML/MIN; Glucose 158 mg/dL (74-106); Potassium 3.7 mmol/L (3.5-5.1); SODIUM 137 mmol/L (137-145)
[2020-12-21] MEDS: CLINDAMYCIN-D5W 600 MG/50 ML*** 600 MG/50 ML BAG IV SCH (06:18)
[2020-12-21] MEDS: Advair Hfa 115/21 Common canister IH SCH (07:02)
[2020-12-21] MEDS: HUMALOG SQ PRN ×2 (08:34→12:53)
--- NOTE | 2020-12-21 08:50 | PROG NOTE ---
Events noted. Chart reviewed. DATE: 12/20/2020 HISTORY: The patient was evaluated this afternoon, appears comfortable sitting in chair. The patient's sister is present in the room. He does report feeling "better". PHYSICAL EXAMINATION: Vital signs noted. HEENT: The patient is normocephalic. Pupils are reactive. Oral exam is limited. Oropharynx is small. NECK: Supple. CVS: First and second heart sounds are normal, regular, rhythmic. RESPIRATORY: Shows diminished breath sounds, rhonchi somewhat improved. ABDOMEN: Soft. EXTREMITIES: Trace edema is noted. ASSESSMENT: This is a 65 year old male admitted with: 1) Chronic obstructive pulmonary disease with acute exacerbation. 2) Bilateral pneumonia. 3) Acute bronchitis. 4) Hypoxemia, improved. 5) Diabetes mellitus. 6) Mental retardation. RECOMMENDATIONS: 1) The patient appears to be gradually improving from pulmonary standpoint. 2) May discontinue IV aminophylline drip after current bag is over. Reduce steroids gradually. Would benefit from pulmonary rehab. Discussed with patient's sister and all questions answered, will continue to follow.
[2020-12-21] MEDS: ECOTRIN 81 MG PO SCH (10:21)
[2020-12-21] MEDS: ENOXAPARIN SODIUM SQ SCH (10:21)
[2020-12-21] MEDS: NEURONTIN 300 MG PO SCH (10:22)
[2020-12-21] MEDS: Flomax 0.4 MG PO SCH (10:22)
[2020-12-21] MEDS: DELTASONE 20 MG PO SCH (10:22)
[2020-12-21] MEDS: MYSOLINE 50MG PO SCH (10:22)
[2020-12-21] MEDS: Protonix 40MG Tablet PO SCH (10:22)
[2020-12-21] MEDS: Cymbalta 30 MG Capsule PO SCH (10:22)
[2020-12-21] MEDS: MYRBETRIQ PO SCH (10:23)
[2020-12-21] MEDS: NON-FORMULARY ITEM PO SCH (10:23)
[2020-12-21] MEDS: Miralax Powder 17GM PACKET PO SCH (10:23)
[2020-12-21] MEDS: NYSTOP 30 GM CREAM TOP SCH (10:24)
[2020-12-21] MEDS: Calcium 500MG W/Vit D Tablet PO SCH (10:24)
[2020-12-21] MEDS: THERAGRAN MULTIVITAMIN PO SCH (10:24)
[2020-12-21 12:05] VITALS: BP 142/71
[2020-12-21 13:22] VITALS: PULSE 83; O2SAT 91
[2020-12-21] MEDS: PATIENT OWN MEDICATION SQ SCH (13:55)
--- NOTE | 2020-12-21 14:39 | PROG NOTE ---
Events noted. Chart reviewed. DATE: 12/21/2020 HISTORY: The patient is sitting in chair, awake, comfortable, voices no new complaints. PHYSICAL EXAMINATION: Vital signs noted. CVS: First and second heart sounds are normal, regular, rhythmic. RESPIRATORY: Shows diminished breath sounds, rhonchi remarkably improved. ABDOMEN: Soft. EXTREMITIES: No edema noted. LABORATORY DATA AND TESTS: Labs reviewed. ASSESSMENT: This is a 65 year old male admitted with: 1) Chronic obstructive pulmonary disease with acute exacerbation. 2) Status post bilateral community acquired pneumonia. 3) Hypoxemia, resolved. 4) Diabetes mellitus. RECOMMENDATIONS: 1) Discussed with Dr. Adama Gomez. We both agree the patient will benefit from swing-bed. 2) Discontinue aminophylline drip. 3) Will change steroids to p.o. with gradual taper. 4) May discharge home after functional status returns back to baseline. 5) Follow up in outpatient setting. Thank you for allowing me to participate in the care of.
[2020-12-21] MEDS ORDERED: CLEOCIN 150 MG CAPSULE PO SCH (15:00)
[2020-12-21] MEDS ORDERED: Augmentin 875-125 Tablet PO SCH (22:00)
== END 2020-12-21 15:30 | disposition swing bed (61) | DRG 194 ==
LOC: ED 14:32 → MED SURG 18:16 → OBSVTOIN 12-10 08:42
PROVIDERS: ADMIT Family Medicine; ATTEND Family Medicine
DX: J18.9 Pneumonia, unspecified organism (principal); J44.1 Chronic obstructive pulmonary disease with (acute) exacerbation; E11.65 Type 2 diabetes mellitus with hyperglycemia; Z79.899 Other long term (current) drug therapy; E78.00 Pure hypercholesterolemia, unspecified; R53.1 Weakness; R09.02 Hypoxemia; R10.30 Lower abdominal pain, unspecified; F79 Unspecified intellectual disabilities; Z20.828 Contact with and (suspected) exposure to other viral communicable diseases
CPT/HCPCS: 0241U; 36000; 36415; 71045; 74177; 80048; 80053; 80164; 80198; 81001; 82150; 82947; 83036; 83690; 83735; 83880; 84145; 84484; 85025; 85027; 85379; 87040; 87070; 93268; 93971; 94640; 94660; 94667; 94668; 94760; 94762; 96360; 96365; 96367; 97110; 97161; 97530; 99285; 99291; G0378; J0280; J0696; J1650; J1817; J1956; A9270-GY

== ENCOUNTER 2020-12-21 09:30 | Inpatient (IN) | payer MEDICARE ==
[2020-12-21] MEDS ORDERED: Aplisol ID ONE (15:42)
[2020-12-21] MEDS ORDERED: TYLENOL 325 MG PO PRN (15:42)
[2020-12-21] MEDS ORDERED: MOTRIN 600 MG PO PRN (15:42)
[2020-12-21] MEDS ORDERED: MUCINEX DM 600/30MG PO PRN (15:42)
[2020-12-21] MEDS: NEURONTIN 300 MG PO SCH ×2 (16:44→22:18)
[2020-12-21] MEDS: CLEOCIN 150 MG CAPSULE PO SCH ×2 (16:45→22:17)
[2020-12-21] MEDS: Calcium 500MG W/Vit D Tablet PO SCH ×2 (16:45→22:18)
[2020-12-21] MEDS: MYSOLINE 50MG PO SCH ×2 (16:45→22:18)
[2020-12-21] MEDS: HUMALOG SQ PRN ×2 (17:49→22:20)
[2020-12-21] MEDS: DUONEB 0.5-3 MG/3 ml Neb IH SCH (18:49)
[2020-12-21] MEDS: Advair Hfa 115/21 Common canister IH SCH (19:04)
[2020-12-21] MEDS: Cymbalta 30 MG Capsule PO SCH (22:17)
[2020-12-21] MEDS: Augmentin 875-125 Tablet PO SCH (22:17)
[2020-12-21] MEDS: MYRBETRIQ PO SCH (22:17)
[2020-12-21] MEDS: ZOCOR 20MG PO SCH (22:18)
[2020-12-21] MEDS: CLARITIN 10 MG PO SCH (22:18)
[2020-12-21] MEDS: Protonix 40MG Tablet PO SCH (22:18)
[2020-12-21] MEDS: NYSTOP 30 GM CREAM TOP SCH (22:19)
[2020-12-21] MEDS: Lantus Insulin SQ SCH (22:19)
[2020-12-22] MEDS: DUONEB 0.5-3 MG/3 ml Neb IH SCH ×4 (01:01→18:50)
[2020-12-22] MEDS: Advair Hfa 115/21 Common canister IH SCH ×2 (07:03→18:50)
[2020-12-22] MEDS: HUMALOG SQ PRN ×4 (08:49→22:20)
[2020-12-22] MEDS: Augmentin 875-125 Tablet PO SCH ×2 (10:03→22:43)
[2020-12-22] MEDS: Calcium 500MG W/Vit D Tablet PO SCH ×3 (10:03→22:18)
[2020-12-22] MEDS: CLEOCIN 150 MG CAPSULE PO SCH ×3 (10:04→22:17)
[2020-12-22] MEDS: Cymbalta 30 MG Capsule PO SCH ×2 (10:05→22:18)
[2020-12-22] MEDS: DELTASONE 20 MG PO SCH (10:05)
[2020-12-22] MEDS: ECOTRIN 81 MG PO SCH (10:05)
[2020-12-22] MEDS: MYSOLINE 50MG PO SCH ×3 (10:06→22:18)
[2020-12-22] MEDS: Flomax 0.4 MG PO SCH (10:06)
[2020-12-22] MEDS: MYRBETRIQ PO SCH ×2 (10:06→22:17)
[2020-12-22] MEDS: NEURONTIN 300 MG PO SCH ×3 (10:07→22:19)
[2020-12-22] MEDS: NON-FORMULARY ITEM PO SCH (10:08)
[2020-12-22] MEDS: NYSTOP 30 GM CREAM TOP SCH ×2 (10:09→22:19)
[2020-12-22] MEDS: THERAGRAN MULTIVITAMIN PO SCH (10:09)
[2020-12-22] MEDS: Protonix 40MG Tablet PO SCH ×2 (10:09→22:19)
[2020-12-22] MEDS: ENOXAPARIN SODIUM SQ SCH (10:39)
[2020-12-22] MEDS: Miralax Powder 17GM PACKET PO SCH (10:40)
[2020-12-22] MEDS: ZOCOR 20MG PO SCH (22:17)
[2020-12-22] MEDS: CLARITIN 10 MG PO SCH (22:19)
[2020-12-22] MEDS: Lantus Insulin SQ SCH (22:19)
[2020-12-22] MEDS ORDERED: Augmentin 875-125 Tablet ONE (22:35)
[2020-12-23] MEDS: DUONEB 0.5-3 MG/3 ml Neb IH SCH ×4 (00:01→19:41)
[2020-12-23] MEDS: Advair Hfa 115/21 Common canister IH SCH ×2 (06:34→19:41)
[2020-12-23] MEDS: HUMALOG SQ PRN ×4 (08:14→22:44)
[2020-12-23] MEDS: Cymbalta 30 MG Capsule PO SCH ×2 (09:27→22:48)
[2020-12-23] MEDS: CLEOCIN 150 MG CAPSULE PO SCH ×3 (09:27→22:50)
[2020-12-23] MEDS: Calcium 500MG W/Vit D Tablet PO SCH ×3 (09:27→22:48)
[2020-12-23] MEDS: Augmentin 875-125 Tablet PO SCH ×2 (09:27→22:49)
[2020-12-23] MEDS: DELTASONE 20 MG PO SCH (09:28)
[2020-12-23] MEDS: ENOXAPARIN SODIUM SQ SCH (09:28)
[2020-12-23] MEDS: ECOTRIN 81 MG PO SCH (09:28)
[2020-12-23] MEDS: Flomax 0.4 MG PO SCH (09:29)
[2020-12-23] MEDS: NON-FORMULARY ITEM PO SCH (09:29)
[2020-12-23] MEDS: NEURONTIN 300 MG PO SCH ×3 (09:29→22:48)
[2020-12-23] MEDS: MYSOLINE 50MG PO SCH ×3 (09:29→22:48)
[2020-12-23] MEDS: Miralax Powder 17GM PACKET PO SCH (09:29)
[2020-12-23] MEDS: MYRBETRIQ PO SCH ×2 (09:29→22:49)
[2020-12-23] MEDS: NYSTOP 30 GM CREAM TOP SCH ×2 (09:30→22:51)
[2020-12-23] MEDS: Protonix 40MG Tablet PO SCH ×2 (09:30→22:48)
[2020-12-23] MEDS: THERAGRAN MULTIVITAMIN PO SCH (09:30)
[2020-12-23] MEDS: Lantus Insulin SQ SCH (22:46)
[2020-12-23] MEDS: ZOCOR 20MG PO SCH (22:48)
[2020-12-23] MEDS: CLARITIN 10 MG PO SCH (22:48)
[2020-12-24] MEDS: DUONEB 0.5-3 MG/3 ml Neb IH SCH ×4 (01:02→18:44)
[2020-12-24] MEDS: Advair Hfa 115/21 Common canister IH SCH ×2 (07:52→18:43)
[2020-12-24] MEDS: THERAGRAN MULTIVITAMIN PO SCH (09:24)
[2020-12-24] MEDS: Protonix 40MG Tablet PO SCH ×2 (09:24→21:44)
[2020-12-24] MEDS: DELTASONE 20 MG PO SCH (09:24)
[2020-12-24] MEDS: Calcium 500MG W/Vit D Tablet PO SCH ×3 (09:24→21:43)
[2020-12-24] MEDS: Flomax 0.4 MG PO SCH (09:24)
[2020-12-24] MEDS: MYSOLINE 50MG PO SCH ×3 (09:24→21:43)
[2020-12-24] MEDS: ECOTRIN 81 MG PO SCH (09:24)
[2020-12-24] MEDS: ENOXAPARIN SODIUM SQ SCH (09:25)
[2020-12-24] MEDS: NON-FORMULARY ITEM PO SCH (09:25)
[2020-12-24] MEDS: NEURONTIN 300 MG PO SCH ×3 (09:25→21:43)
[2020-12-24] MEDS: Cymbalta 30 MG Capsule PO SCH ×2 (09:25→21:43)
[2020-12-24] MEDS: CLEOCIN 150 MG CAPSULE PO SCH ×3 (09:26→21:44)
[2020-12-24] MEDS: Augmentin 875-125 Tablet PO SCH ×2 (09:26→21:44)
[2020-12-24] MEDS: Miralax Powder 17GM PACKET PO SCH (09:27)
[2020-12-24] MEDS: NYSTOP 30 GM CREAM TOP SCH ×2 (09:27→21:41)
[2020-12-24] MEDS: MYRBETRIQ PO SCH ×2 (09:27→21:43)
[2020-12-24] MEDS: HUMALOG SQ PRN ×3 (12:00→21:44)
[2020-12-24] MEDS: CLARITIN 10 MG PO SCH (21:44)
[2020-12-24] MEDS: ZOCOR 20MG PO SCH (21:44)
[2020-12-24] MEDS: Lantus Insulin SQ SCH (21:45)
[2020-12-25] MEDS: DUONEB 0.5-3 MG/3 ml Neb IH SCH ×4 (00:47→19:38)
[2020-12-25] MEDS: Advair Hfa 115/21 Common canister IH SCH ×2 (07:08→19:38)
[2020-12-25] MEDS: NYSTOP 30 GM CREAM TOP SCH ×2 (09:19→21:09)
[2020-12-25] MEDS: Flomax 0.4 MG PO SCH (09:20)
[2020-12-25] MEDS: THERAGRAN MULTIVITAMIN PO SCH (09:20)
[2020-12-25] MEDS: ECOTRIN 81 MG PO SCH (09:20)
[2020-12-25] MEDS: Cymbalta 30 MG Capsule PO SCH ×2 (09:20→21:08)
[2020-12-25] MEDS: ENOXAPARIN SODIUM SQ SCH (09:20)
[2020-12-25] MEDS: DELTASONE 20 MG PO SCH (09:21)
[2020-12-25] MEDS: NEURONTIN 300 MG PO SCH ×3 (09:21→21:08)
[2020-12-25] MEDS: Calcium 500MG W/Vit D Tablet PO SCH ×3 (09:21→21:08)
[2020-12-25] MEDS: Augmentin 875-125 Tablet PO SCH ×2 (09:21→21:09)
[2020-12-25] MEDS: Protonix 40MG Tablet PO SCH ×2 (09:21→21:08)
[2020-12-25] MEDS: MYSOLINE 50MG PO SCH ×3 (09:21→21:08)
[2020-12-25] MEDS: CLEOCIN 150 MG CAPSULE PO SCH ×3 (09:22→21:09)
[2020-12-25] MEDS: NON-FORMULARY ITEM PO SCH (09:22)
[2020-12-25] MEDS: Miralax Powder 17GM PACKET PO SCH (09:22)
[2020-12-25] MEDS: MYRBETRIQ PO SCH ×2 (09:22→21:09)
[2020-12-25] MEDS: HUMALOG SQ PRN ×3 (11:39→20:34)
[2020-12-25] MEDS: Lantus Insulin SQ SCH (21:07)
[2020-12-25] MEDS: ZOCOR 20MG PO SCH (21:08)
[2020-12-25] MEDS: CLARITIN 10 MG PO SCH (21:08)
[2020-12-26] MEDS: DUONEB 0.5-3 MG/3 ml Neb IH SCH ×2 (02:19→07:00)
[2020-12-26] MEDS: Advair Hfa 115/21 Common canister IH SCH (07:00)
[2020-12-26 07:07] VITALS: PULSE 86; O2SAT 93
[2020-12-26 07:34] VITALS: BP 125/67
[2020-12-26] MEDS: ECOTRIN 81 MG PO SCH (09:07)
[2020-12-26] MEDS: NEURONTIN 300 MG PO SCH (09:07)
[2020-12-26] MEDS: Cymbalta 30 MG Capsule PO SCH (09:08)
[2020-12-26] MEDS: Protonix 40MG Tablet PO SCH (09:08)
[2020-12-26] MEDS: DELTASONE 20 MG PO SCH (09:08)
[2020-12-26] MEDS: THERAGRAN MULTIVITAMIN PO SCH (09:08)
[2020-12-26] MEDS: ENOXAPARIN SODIUM SQ SCH (09:09)
[2020-12-26] MEDS: MYSOLINE 50MG PO SCH (09:09)
[2020-12-26] MEDS: Calcium 500MG W/Vit D Tablet PO SCH (09:09)
[2020-12-26] MEDS: Flomax 0.4 MG PO SCH (09:10)
[2020-12-26] MEDS: NYSTOP 30 GM CREAM TOP SCH (09:10)
[2020-12-26] MEDS: Augmentin 875-125 Tablet PO SCH (09:10)
[2020-12-26] MEDS: MYRBETRIQ PO SCH (09:10)
[2020-12-26] MEDS: Miralax Powder 17GM PACKET PO SCH (09:11)
[2020-12-26] MEDS: CLEOCIN 150 MG CAPSULE PO SCH (09:11)
[2020-12-26] MEDS: NON-FORMULARY ITEM PO SCH (09:12)
[2020-12-26] MEDS: HUMALOG SQ PRN (12:13)
[2020-12-28] MEDS ORDERED: PATIENT OWN MEDICATION SQ SCH (10:00)
== END 2020-12-26 13:01 | disposition home or self-care (01) | DRG 195 ==
LOC: MED SURG 15:30
PROVIDERS: ADMIT Family Medicine; ATTEND Family Medicine
DX: J18.9 Pneumonia, unspecified organism (principal); E11.65 Type 2 diabetes mellitus with hyperglycemia; J44.9 Chronic obstructive pulmonary disease, unspecified; E78.00 Pure hypercholesterolemia, unspecified; Z79.899 Other long term (current) drug therapy
CPT/HCPCS: 82947; 94640; 94760; J1650; J1817; 97110-GP; A9270-GY

== ENCOUNTER 2021-01-13 12:25 | Inpatient (IN) | payer MEDICARE ==
[2021-01-13] MEDS ORDERED: DUONEB 0.5-3 MG/3 ml Neb IH ONE ×2 (12:54→13:19)
[2021-01-13 13:02] LABS: Absolute Neutrophil Ct (ANC) 6.25 (1.4-6.9); BASOPHIL % 0.2 % (0.0-0.4); Basophil (Absolute #) 0.02 (0-0.4); Eosinophil % 0.3 % (0.00-5.0); Eosinophil (Absolute #) 0.03 (0-0.5); Hematocrit 44.4 % (42-50); Hemoglobin 13.4 gm/dl (12.5-18.0); Lymphocyte (Absolute #) 3.91 (1.0-4.6); Lymphocytes % 34.2 % (24.0-44.0); Mean Cell Volume 98.4 fl (78-100); Mean Corpuscular Hemoglobin 29.7 pg (26-32); Mean Corpuscular Hgb Concent. 30.2 g/dl (32-36); Mean Platelet Volume 10.5 fl (7.5-11.0); Monocyte (Absolute #) 1.22 (0.0-1.3); Monocytes % 10.7 % (0.0-12.0); Neutrophil % 54.6 % (36.0-66.0); Platelet Count 122 K/mm3 (150-450); Red Blood Count 4.51 M/mm3 (4.1-5.6); Red Cell Distribution Width 14.5 % (11.5-14.0); White Blood Count 11.4 K/mm3 (4.0-10.5)
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
[2021-01-13 13:23] LABS: ALBUMIN 4.1 g/dL (3.5-5.0); ALKALINE PHOSPHATASE 43 U/L (38-126); ANION GAP 10.2 MEQ/L (5-15); BLOOD UREA NITROGEN 19 mg/dL (9-20); CHLORIDE 95 mmol/L (98-107); Calcium 9.9 mg/dL (8.4-10.2); Carbon Dioxide 38 mmol/L (22-30); Creatinine 1 0.98 mg/dL (0.66-1.25); EST GLOMERULAR FILTRATION RATE > 60.0 ML/MIN; Glucose 137 mg/dL (74-106); MAGNESIUM 2.1 mg/dL (1.6-2.3); NT PRO BNP 80.7 pg/mL (0-900); Potassium 3.9 mmol/L (3.5-5.1); SGOT/AST 24 U/L (17-59); SGPT/ALT 14 U/L (0-50); SODIUM 139 mmol/L (137-145)
[2021-01-13] MEDS ORDERED: Zosyn 3.375 GM Vial 3.375 GM in Sodium Chloride 100ML MINI-BAG PLUS 100 ML IV ONE (13:36)
[2021-01-13] MEDS ORDERED: LEVOFLOXACIN 750MG/150ML D5W 750 MG/150 ML BAG IV STA (13:36)
[2021-01-13] MEDS ORDERED: ROCEPHIN 1 Gm-D5w 50 ml Bag** 0 G/0 ML IVPB IV ONE (13:48)
[2021-01-13] MEDS ORDERED: Zosyn 3.375 GM Vial IV ONE ×2 (13:51→17:35)
[2021-01-13] MEDS ORDERED: Sodium Chloride 100ML MINI-BAG PLUS 100 ML IV ONE ×2 (13:51→17:38)
[2021-01-13 14:05] LABS: Appearance CLEAR (CLEAR); Bilirubin NEGATIVE (NEGATIVE); Blood NEGATIVE Ery/ul (0-5); Epithelial Cells RARE /HPF (FEW); Glucose >=500 mg/dL (NEGATIVE); Ketones SMALL (NEGATIVE); Leukocyte Esterase NEGATIVE (NEGATIVE); Mucus SLIGHT /HPF (NEGATIVE); Nitrite NEGATIVE (NEGATIVE); Protein,Urine Dip NEGATIVE (Negative); Specific Gravity 1.029 (1.005-1.025); Urobilinogen NEGATIVE mg/dL (0-1); WBC 0-2 /HPF (0-5)
[2021-01-13] MEDS ORDERED: LEVOFLOXACIN 750MG/150ML D5W 750 MG/150 ML BAG IV ONE (14:33)
[2021-01-13] MEDS ORDERED: Zofran 4 MG/2 ML VIAL IV PRN (16:35)
[2021-01-13] MEDS: DUONEB 0.5-3 MG/3 ml Neb IH SCH (18:50)
--- NOTE | 2021-01-13 19:00 | XRAY ---
Indication: Cough. Pneumonia. Comparison: December 20, 2020. Portable chest demonstrates new mild bibasilar infiltrates versus atelectasis. Remaining heart and upper lungs unremarkable. Bony thorax intact.
[2021-01-13] MEDS: Zosyn 3.375 GM Vial 3.375 GM in Sodium Chloride 100ML MINI-BAG PLUS 100 ML IV SCH (19:33)
[2021-01-13] MEDS: MYRBETRIQ PO SCH (21:31)
[2021-01-13] MEDS: MYSOLINE 50MG PO SCH (21:32)
[2021-01-13] MEDS: Flomax 0.4 MG PO SCH (21:32)
[2021-01-13] MEDS: NEURONTIN 300 MG PO SCH (21:32)
[2021-01-13] MEDS: Cymbalta 30 MG Capsule PO SCH (21:32)
[2021-01-13] MEDS: HUMALOG SQ PRN (21:44)
[2021-01-13] MEDS ORDERED: MUCINEX DM 600/30MG PO SCH (22:00)
[2021-01-13] MEDS: TYLENOL 325 MG PO PRN (22:50)
[2021-01-14] MEDS: Zosyn 3.375 GM Vial 3.375 GM in Sodium Chloride 100ML MINI-BAG PLUS 100 ML IV SCH ×4 (00:34→17:25)
[2021-01-14] MEDS: DUONEB 0.5-3 MG/3 ml Neb IH SCH ×4 (00:54→23:09)
[2021-01-14 01:43] LABS: Absolute Neutrophil Ct (ANC) 4.93 (1.4-6.9); BASOPHIL % 0.1 % (0.0-0.4); Basophil (Absolute #) 0.01 (0-0.4); Eosinophil (Absolute #) 0 (0-0.5); Hematocrit 39.1 % (42-50); Lymphocyte (Absolute #) 4.02 (1.0-4.6); Lymphocytes % 40.6 % (24.0-44.0); Mean Corpuscular Hemoglobin 30.1 pg (26-32); Mean Corpuscular Hgb Concent. 30.7 g/dl (32-36); Monocyte (Absolute #) 0.94 (0.0-1.3); Monocytes % 9.5 % (0.0-12.0); Neutrophil % 49.8 % (36.0-66.0); Platelet Count 124 K/mm3 (150-450); Red Blood Count 3.99 M/mm3 (4.1-5.6); Red Cell Distribution Width 14.5 % (11.5-14.0); White Blood Count 9.9 K/mm3 (4.0-10.5)
[2021-01-14 02:00] LABS: ALBUMIN 3.6 g/dL (3.5-5.0); ALKALINE PHOSPHATASE 40 U/L (38-126); ANION GAP 15.1 MEQ/L (5-15); BLOOD UREA NITROGEN 17 mg/dL (9-20); CHLORIDE 97 mmol/L (98-107); Calcium 9.2 mg/dL (8.4-10.2); Carbon Dioxide 29 mmol/L (22-30); Creatinine 1 1.04 mg/dL (0.66-1.25); EST GLOMERULAR FILTRATION RATE > 60.0 ML/MIN; Glucose 263 mg/dL (74-106); Potassium 3.7 mmol/L (3.5-5.1); SGOT/AST 20 U/L (17-59); SGPT/ALT 14 U/L (0-50); SODIUM 137 mmol/L (137-145)
[2021-01-14] MEDS ORDERED: DUONEB 0.5-3 MG/3 ml Neb IH ONE (07:22)
[2021-01-14] MEDS ORDERED: Spiriva 18 Mcg/Cap Inhaler IH ONE (07:23)
[2021-01-14] MEDS: Spiriva 18 Mcg/Cap Inhaler IH SCH (07:57)
[2021-01-14] MEDS: Advair Hfa 115/21 Common canister IH SCH ×2 (07:57→23:09)
[2021-01-14] MEDS ORDERED: Ventolin Hfa MDI IH PRN (08:07)
[2021-01-14] MEDS ORDERED: Miralax Powder 17GM PACKET PO PRN (08:07)
[2021-01-14] MEDS ORDERED: VENTOLIN COMMON CANISTER IH PRN (08:15)
[2021-01-14] MEDS ORDERED: EPINEPHRINE 0.3 MG IM SCH (08:15)
[2021-01-14] MEDS ORDERED: Epipen 0.3 MG IM PRN (08:16)
[2021-01-14] MEDS: HUMALOG SQ PRN ×4 (08:30→23:10)
[2021-01-14] MEDS ORDERED: MEDICATION INTERVENTION MC SCH ×2 (08:30)
[2021-01-14] MEDS: solu-MEDROL 40 MG IV SCH ×3 (08:33→23:06)
[2021-01-14] MEDS: Cymbalta 30 MG Capsule PO SCH ×2 (09:39→23:04)
[2021-01-14] MEDS: CLARITIN 10 MG PO SCH (09:39)
[2021-01-14] MEDS: MUCINEX DM 600/30MG PO PRN (09:40)
[2021-01-14] MEDS: Protonix 40MG Tablet PO SCH ×2 (09:40→23:05)
[2021-01-14] MEDS: MYSOLINE 50MG PO SCH ×3 (09:40→23:05)
[2021-01-14] MEDS: NEURONTIN 300 MG PO SCH ×3 (09:40→23:05)
[2021-01-14] MEDS: ECOTRIN 81 MG PO SCH (09:40)
[2021-01-14] MEDS: MYRBETRIQ PO SCH ×2 (09:41→23:04)
[2021-01-14] MEDS: LEVOFLOXACIN 750MG/150ML D5W 750 MG/150 ML BAG IV SCH (09:47)
[2021-01-14] MEDS ORDERED: NON-FORMULARY ITEM (Aspirin [Aspirin] 81 MG) PO SCH (10:00)
[2021-01-14] MEDS ORDERED: DELTASONE 20 MG PO SCH (10:00)
[2021-01-14] MEDS ORDERED: NON-FORMULARY ITEM (Empagliflozin [Jardiance] 10 MG) PO SCH (10:00)
[2021-01-14] MEDS ORDERED: NON-FORMULARY ITEM (Omeprazole [Omeprazole] 40 MG) PO SCH (10:00)
[2021-01-14] MEDS ORDERED: solu-MEDROL 40 MG IV SCH (10:00)
[2021-01-14] MEDS ORDERED: PROTONIX 40 MG IV IV SCH (10:00)
[2021-01-14] MEDS ORDERED: [UNRECOGNIZED DRUG - OTHER] PO SCH (11:30)
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
[2021-01-14] MEDS: ENOXAPARIN SODIUM SQ SCH (15:14)
[2021-01-14] MEDS ORDERED: LIPITOR 40MG PO SCH (22:00)
[2021-01-14] MEDS: ZOCOR 20MG PO SCH (23:04)
[2021-01-14] MEDS: Flomax 0.4 MG PO SCH (23:05)
[2021-01-15] MEDS: Zosyn 3.375 GM Vial 3.375 GM in Sodium Chloride 100ML MINI-BAG PLUS 100 ML IV SCH ×4 (00:32→18:07)
[2021-01-15] MEDS: DUONEB 0.5-3 MG/3 ml Neb IH SCH ×4 (01:09→18:40)
[2021-01-15] MEDS: solu-MEDROL 40 MG IV SCH ×3 (06:34→22:53)
[2021-01-15] MEDS: Spiriva 18 Mcg/Cap Inhaler IH SCH (06:48)
[2021-01-15] MEDS: Advair Hfa 115/21 Common canister IH SCH ×2 (06:48→18:41)
[2021-01-15] MEDS: Lantus Insulin SQ SCH (08:51)
[2021-01-15] MEDS: HUMALOG SQ PRN ×3 (08:52→22:53)
[2021-01-15] MEDS: MUCINEX DM 600/30MG PO PRN (09:25)
[2021-01-15] MEDS: Cymbalta 30 MG Capsule PO SCH ×2 (09:25→22:52)
[2021-01-15] MEDS: LEVOFLOXACIN 750MG/150ML D5W 750 MG/150 ML BAG IV SCH (09:25)
[2021-01-15] MEDS: NEURONTIN 300 MG PO SCH ×3 (09:25→22:53)
[2021-01-15] MEDS: MYSOLINE 50MG PO SCH ×3 (09:26→22:53)
[2021-01-15] MEDS: ECOTRIN 81 MG PO SCH (09:26)
[2021-01-15] MEDS: Protonix 40MG Tablet PO SCH ×2 (09:26→22:53)
[2021-01-15] MEDS: CLARITIN 10 MG PO SCH (09:26)
[2021-01-15] MEDS: MYRBETRIQ PO SCH ×2 (09:27→22:54)
[2021-01-15] MEDS: ENOXAPARIN SODIUM SQ SCH (09:27)
[2021-01-15] MEDS ORDERED: PATIENT OWN MEDICATION PO SCH (10:00)
--- NOTE | 2021-01-15 13:45 | XRAY ---
Indication: Bilateral pneumonia. Conventional contrast enhanced CTA chest performed using 80 cc Isovue 370 contrast. Two-dimensional sagittal and coronal reformatted images obtained. Comparison: CT chest PE exam September 06, 2016. Thoracic aorta remains normal in course and caliber without aneurysm/dissection or arteriosclerotic disease. Normal patent branching right brachiocephalic, left common carotid, and left subclavian arteries. Heart is not enlarged. No central pulmonary embolus. Stable centimeter/subcentimeter mediastinal and bilateral hilar nodes, none pathologically enlarged. Lungs again demonstrates bibasilar infiltrates/atelectasis less than before. New minimal inferior right upper lobe patchy interstitial alveolar opacity. No effusion. Bony thorax intact again with mild degenerative changes throughout the spine. There remains slightly prominent bilateral axillary lymph nodes, again largest on the left measuring 1.3 x 1.7 cm presumed reactive. Limited upper abdomen unremarkable. Impression: 1. CTA chest with contrast is negative for aortic aneurysm/dissection or arteriosclerotic disease. 2. New right upper lobe patchy pneumonitis. 3. Again bibasilar infiltrates/atelectasis less than before.
--- NOTE | 2021-01-15 14:19 | PCM.NOTE ---
Date and Time: 01/15/21 1412 Subjective Assessment: Pt. notes feeling better, admitted for a spell of "weakness", again Friday, I believe this makes the weekend he had either been in the hospital or had "Weakness" requiring hospitalization, pt. lungs have chronic rhonchi and always sounds horrible, his x-ray shows atelectasis/ inflitrate, but other labs are normal. - Review of Systems Constitutional: Weakness, No Fever, No Chills Eyes: No Symptoms Ears, Nose, & Throat: No Symptoms Respiratory: No Cough, No Short Of Breath Cardiac: No Chest Pain, No Edema, No Syncope Abdominal/Gastrointestinal: No Abdominal Pain, No Nausea, No Vomiting, No Diarrhea Genitourinary Symptoms: No Dysuria Musculoskeletal: No Back Pain, No Neck Pain Skin: No Rash Neurological: No Dizziness, No Focal Weakness, No Sensory Changes Psychological: No Symptoms Endocrine: No Symptoms Hematologic/Lymphatic: No Symptoms Immunological/Allergic: No Symptoms Objective Exam General Appearance: no apparent distress (lungs harsh rhonchi noted throughout), alert Neurologic Exam: alert, oriented x 3, cooperative, normal mood/affect, nml cerebellar function, sensation nml, No motor deficits Skin Exam: normal color, warm, dry Eye Exam: PERRL, EOMI, eyes nml inspection Ears, Nose, Throat Exam: normal ENT inspection, pharynx normal, moist mucous membranes Neck Exam: normal inspection, non-tender, supple, full range of motion Respiratory Exam: normal breath sounds, lungs clear, No respiratory distress Cardiovascular Exam: regular rate/rhythm, normal heart sounds Gastrointestinal/Abdomen Exam: soft, No tenderness, No mass Extremity Exam: normal inspection, normal range of motion Back Exam: normal inspection, normal range of motion, No CVA tenderness, No vertebral tenderness Male Genitalia Exam: deferred Rectal Exam: deferred OBJECTIVE DATA Vital Signs: Vital Signs - 24 hr Temp Pulse Resp BP Pulse Ox 01/15/21 13:22 73 18 92 L 01/15/21 12:00 97.7 F 72 16 162/74 92 L 01/15/21 07:51 96.6 F 72 16 121/59 92 L 01/15/21 06:54 72 16 92 L 01/15/21 04:00 97.2 F 73 16 133/73 94 L 01/15/21 01:12 75 20 93 L 01/14/21 23:25 98.2 F 80 20 119/56 94 L 01/14/21 20:00 98.3 F 95 H 20 117/57 93 L 01/14/21 16:00 98.4 F 96 H 20 106/58 90 L 01/14/21 14:57 96 H 20 91 L Pain Assessment - Last Documented Pain Intensity 0 Pain Scale Used FLACC Intake and Output: Intake & Output 01/13/21 01/14/21 01/15/21 01/16/21 11:59 11:59 11:59 11:59 Intake Total 2300 2486 Output Total 1475 2100 250 Balance 825 386 -250 Weight 74.9 kg Lab Results: Lab Results-Last 24 Hours 01/14/21 01/14/21 01/15/21 Range/Units 15:39 21:09 06:56 POC Glucometer 201 H 317 H 189 H (74 to 106) mg/dL 01/15/21 Range/Units 11:32 POC Glucometer 293 H (74 to 106) mg/dL Radiology Exams: Radiology Procedures Category Date Time Status CHEST 2 VIEWS (PA AND LAT) Routine Exams 01/16/21 08:00 Ordered CTA CHEST W AND/OR WO [CT] Routine Exams 01/15/21 09:46 Completed Assessment/Plan (1) Generalized weakness Current Visit: Yes Status: Acute Assessment & Plan: With 5 straight weekends of admission for weakness and chronic atelectasis changes along with chronic atelectasis/infiltrate readings on cxr, will obtain a CT of lungs with angiography and consult pulmonary again. I believe he would benefit from senior living placement for rehab and possible longer term admission to [facility] for more close monitering of his medical conditions. Code(s): R53.1 - WEAKNESS (2) Pneumonia Current Visit: Yes Status: Acute Qualifiers: Pneumonia type: due to unspecified organism Laterality: bilateral Lung location: unspecified part of lung Qualified Code(s): J18.9 - Pneumonia, unspecified organism Assessment & Plan: continue his 2 iv abx, with pulmonary consultation, ? if this is not atelectasis only at this time. Code(s): J18.9 - PNEUMONIA, UNSPECIFIED ORGANISM (3) Cough Current Visit: No Status: Acute Code(s): R05 - COUGH
[2021-01-15] MEDS: ZOCOR 20MG PO SCH (22:52)
[2021-01-15] MEDS: Flomax 0.4 MG PO SCH (22:53)
[2021-01-16] MEDS: DUONEB 0.5-3 MG/3 ml Neb IH SCH ×4 (00:11→18:50)
[2021-01-16] MEDS: Zosyn 3.375 GM Vial 3.375 GM in Sodium Chloride 100ML MINI-BAG PLUS 100 ML IV SCH ×5 (00:17→23:33)
[2021-01-16 05:19] LABS: Hematocrit 39.2 % (42-50); Mean Cell Volume 97.5 fl (78-100); Mean Corpuscular Hemoglobin 29.9 pg (26-32); Mean Corpuscular Hgb Concent. 30.6 g/dl (32-36); Mean Platelet Volume 10.8 fl (7.5-11.0); Platelet Count 150 K/mm3 (150-450); Red Blood Count 4.02 M/mm3 (4.1-5.6); White Blood Count 13.3 K/mm3 (4.0-10.5)
[2021-01-16 05:40] LABS: ANION GAP 14.4 MEQ/L (5-15); BLOOD UREA NITROGEN 11 mg/dL (9-20); CHLORIDE 95 mmol/L (98-107); Calcium 10.1 mg/dL (8.4-10.2); Carbon Dioxide 31 mmol/L (22-30); Creatinine 1 0.81 mg/dL (0.66-1.25); EST GLOMERULAR FILTRATION RATE > 60.0 ML/MIN; Glucose 197 mg/dL (74-106); Potassium 4.2 mmol/L (3.5-5.1); SODIUM 136 mmol/L (137-145)
[2021-01-16] MEDS: solu-MEDROL 40 MG IV SCH ×3 (05:56→21:08)
[2021-01-16] MEDS: Advair Hfa 115/21 Common canister IH SCH ×2 (07:10→18:51)
[2021-01-16] MEDS: Spiriva 18 Mcg/Cap Inhaler IH SCH (07:14)
[2021-01-16] MEDS: HUMALOG SQ PRN ×3 (07:36→21:08)
[2021-01-16] MEDS: Lantus Insulin SQ SCH (07:36)
--- NOTE | 2021-01-16 09:55 | CONS ---
CONSULT DATE: 01/15/2021 REASON FOR CONSULTATION: HISTORY OF PRESENT ILLNESS: Mr. Bell is a 65 y/o male with long-standing history of chronic obstructive pulmonary disease, well known to me, who was recently discharged from [facility] after being treated for chronic obstructive pulmonary disease exacerbation. Prior to that, he was hospitalized at [facility]. The patient has had persistent wheezing going on for the last several weeks. He was suspected of having aspiration. He was extensively evaluated by Speech Therapy during his stay in 09/2020. He was also followed by Speech at [facility] and was suspected of having aspiration to liquids. Patient however did not want to stay for modified barium swallow and was released with outpatient follow-up. He has not been readmitted through the ER where he was brought in with history of cough, wheezing, and shortness of breath. He was noted to have significant bronchospasm. He just completed his CT chest results of which are awaited. The patient is otherwise appearing his usual self and is able to carry on a conversation without much difficulty. 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 PAST SURGICAL HISTORY: No recent surgeries. PERSONAL AND SOCIAL HISTORY: He lives with his sister. ALLERGIES: NOTED. CURRENT MEDICATIONS: Medications reviewed. PHYSICAL EXAMINATION: This is a middle-aged male who appears not in any distress. VITAL SIGNS: Noted. HEENT: Normocephalic. Oral exam is small. NECK: Short, supple. CVS: 1st and 2nd heart sounds normal, regular rhythm. RESPIRATORY: Shows diminished breath sounds, bilateral rhonchi are heard. ABDOMEN: Soft. No edema is noted. Troponin I is negative. Sodium 137, potassium 3.7, chloride 97, bicarb 29, glucose 263, BUN 17, creatinine 1.0. WBC is 9.9, Hgb 12, Hct 39, platelets 124. Chest x-ray shows basilar infiltrates vs atelectasis. CT chest pending. ASSESSMENT: 1. THIS IS A 65 Y/O MALE ADMITTED WITH RECURRENT EPISODE OF CHRONIC OBSTRUCTIVE PULMONARY DISEASE WITH ACUTE EXACERBATION. 2. ACUTE BRONCHITIS. 3. RECURRENT PNEUMONIA LIKELY FROM ASPIRATION. 4. HISTORY OF SEIZURE DISORDER. 5. DIABETES MELLITUS. RECOMMENDATIONS: 1. Agree with present treatment. 2. Will benefit from follow-up with Speech Therapy recommendations. 3. Will follow-up CT chest. 4. Deep vein thrombosis prophylaxis. 5. Coverage of hyperglycemia per protocol. 6. Will continue to follow. Thank you for allowing me to participate in the care of Mr. Bell.
[2021-01-16] MEDS: LEVOFLOXACIN 750MG/150ML D5W 750 MG/150 ML BAG IV SCH (10:22)
[2021-01-16] MEDS: NEURONTIN 300 MG PO SCH ×3 (10:25→21:07)
[2021-01-16] MEDS: ECOTRIN 81 MG PO SCH (10:25)
[2021-01-16] MEDS: Cymbalta 30 MG Capsule PO SCH ×2 (10:26→21:05)
[2021-01-16] MEDS: MYSOLINE 50MG PO SCH ×3 (10:27→21:07)
[2021-01-16] MEDS: Protonix 40MG Tablet PO SCH ×2 (10:27→21:08)
[2021-01-16] MEDS: CLARITIN 10 MG PO SCH (10:27)
[2021-01-16] MEDS: NON-FORMULARY ITEM PO SCH (10:27)
[2021-01-16] MEDS: ENOXAPARIN SODIUM SQ SCH (10:28)
[2021-01-16] MEDS: MYRBETRIQ PO SCH ×2 (10:28→21:06)
--- NOTE | 2021-01-16 13:56 | XRAY ---
Indicated. Dysphagia. Modified barium swallow study performed by the department of speech therapy with fluoroscopic assistance provided. Patient ingested multiple consistencies of liquids and solids. Full report and recommendations will be reported separately. 1 minute 14 seconds fluoroscopy used.
--- NOTE | 2021-01-16 14:01 | XRAY ---
Indication: Bilateral pneumonia. Comparison: January 13, 2021. PA/lateral chest demonstrates clearing of previous bibasilar infiltrates/atelectasis with mild left base residual. Remaining heart and lungs unremarkable. New barium in stomach from same day modified barium swallow study.
[2021-01-16] MEDS: Flomax 0.4 MG PO SCH (21:06)
[2021-01-16] MEDS: ZOCOR 20MG PO SCH (21:08)
[2021-01-17] MEDS: DUONEB 0.5-3 MG/3 ml Neb IH SCH ×4 (00:43→19:47)
[2021-01-17] MEDS: Zosyn 3.375 GM Vial 3.375 GM in Sodium Chloride 100ML MINI-BAG PLUS 100 ML IV SCH ×4 (06:04→23:29)
[2021-01-17] MEDS: solu-MEDROL 40 MG IV SCH ×3 (06:04→21:53)
[2021-01-17] MEDS: Spiriva 18 Mcg/Cap Inhaler IH SCH (07:05)
[2021-01-17] MEDS: Advair Hfa 115/21 Common canister IH SCH ×2 (07:05→19:47)
[2021-01-17] MEDS: Lantus Insulin SQ SCH (07:57)
[2021-01-17] MEDS: HUMALOG SQ PRN ×4 (07:57→21:53)
[2021-01-17] MEDS: ECOTRIN 81 MG PO SCH (10:05)
[2021-01-17] MEDS: CLARITIN 10 MG PO SCH (10:05)
[2021-01-17] MEDS: ENOXAPARIN SODIUM SQ SCH (10:05)
[2021-01-17] MEDS: Cymbalta 30 MG Capsule PO SCH ×2 (10:05→21:52)
[2021-01-17] MEDS: NEURONTIN 300 MG PO SCH ×3 (10:05→21:53)
[2021-01-17] MEDS: MYSOLINE 50MG PO SCH ×3 (10:05→21:53)
[2021-01-17] MEDS: Protonix 40MG Tablet PO SCH ×2 (10:05→21:53)
[2021-01-17] MEDS: MYRBETRIQ PO SCH ×2 (10:06→21:52)
[2021-01-17] MEDS: LEVOFLOXACIN 750MG/150ML D5W 750 MG/150 ML BAG IV SCH (10:09)
[2021-01-17] MEDS: NON-FORMULARY ITEM PO SCH (10:25)
[2021-01-17] MEDS ORDERED: PATIENT OWN MEDICATION SQ SCH (14:30)
[2021-01-17] MEDS ORDERED: TRULICITY 3 MG SQ SCH (14:30)
[2021-01-17] MEDS: Flomax 0.4 MG PO SCH (21:52)
[2021-01-17] MEDS: ZOCOR 20MG PO SCH (21:53)
[2021-01-18] MEDS: HUMALOG SQ PRN ×5 (00:13→21:45)
[2021-01-18] MEDS: DUONEB 0.5-3 MG/3 ml Neb IH SCH ×4 (01:12→18:34)
[2021-01-18 05:05] LABS: Hematocrit 38.5 % (42-50); Hemoglobin 11.9 gm/dl (12.5-18.0); Mean Cell Volume 96.7 fl (78-100); Mean Corpuscular Hemoglobin 29.9 pg (26-32); Mean Corpuscular Hgb Concent. 30.9 g/dl (32-36); Mean Platelet Volume 10.4 fl (7.5-11.0); Platelet Count 176 K/mm3 (150-450); Red Blood Count 3.98 M/mm3 (4.1-5.6); White Blood Count 14.7 K/mm3 (4.0-10.5)
[2021-01-18 05:19] LABS: ANION GAP 16.6 MEQ/L (5-15); BLOOD UREA NITROGEN 12 mg/dL (9-20); CHLORIDE 93 mmol/L (98-107); Carbon Dioxide 30 mmol/L (22-30); Creatinine 1 0.76 mg/dL (0.66-1.25); EST GLOMERULAR FILTRATION RATE > 60.0 ML/MIN; Glucose 279 mg/dL (74-106); Potassium 3.5 mmol/L (3.5-5.1); SODIUM 136 mmol/L (137-145)
[2021-01-18] MEDS: solu-MEDROL 40 MG IV SCH ×3 (05:45→21:44)
[2021-01-18] MEDS: Zosyn 3.375 GM Vial 3.375 GM in Sodium Chloride 100ML MINI-BAG PLUS 100 ML IV SCH (05:45)
[2021-01-18] MEDS: Advair Hfa 115/21 Common canister IH SCH ×2 (06:57→18:36)
[2021-01-18] MEDS: Spiriva 18 Mcg/Cap Inhaler IH SCH (06:57)
--- NOTE | 2021-01-18 08:24 | XRAY ---
Exam: Two-view chest from 01/18/2021. Comparison: Two-view chest from 01/16/2021. Indication: Bilateral pneumonia. Findings: AP upright right sitting chest film and 2 upright lateral sitting chest films were obtained. The heart size and contour are normal. The julia and mediastinal structures appear unremarkable. The lungs are well inflated. Mild increased streaky density is seen at the posterior lung bases, probably greater on the left than right, consistent with some mild residual atelectasis and/or infiltrates. The remainder of the lung fuentes appears clear. There is no pulmonary vascular congestion. No pneumothorax or pleural fluid is seen. Mild degenerative changes are seen within the thoracic spine. Impression: 1. Mild residual streaky atelectasis/infiltrates remain at the posterior lung bases, left slightly greater than right. I believe this is relatively similar to 01/16/2021. 2. No other acute cardiopulmonary disease is seen.
[2021-01-18] MEDS: Lantus Insulin SQ SCH (08:52)
[2021-01-18] MEDS: CLARITIN 10 MG PO SCH (10:10)
[2021-01-18] MEDS: ECOTRIN 81 MG PO SCH (10:10)
[2021-01-18] MEDS: MYSOLINE 50MG PO SCH ×3 (10:10→21:44)
[2021-01-18] MEDS: Cymbalta 30 MG Capsule PO SCH ×2 (10:11→21:43)
[2021-01-18] MEDS: NEURONTIN 300 MG PO SCH ×3 (10:13→21:44)
[2021-01-18] MEDS: Protonix 40MG Tablet PO SCH ×2 (10:14→21:44)
[2021-01-18] MEDS: Levofloxacin 500 MG Tablet PO SCH (10:14)
[2021-01-18] MEDS: MYRBETRIQ PO SCH ×2 (10:15→21:44)
[2021-01-18] MEDS: NON-FORMULARY ITEM PO SCH (10:16)
[2021-01-18] MEDS: ENOXAPARIN SODIUM SQ SCH (10:17)
[2021-01-18] MEDS: TYLENOL 325 MG PO PRN (12:27)
[2021-01-18] MEDS: ZOCOR 20MG PO SCH (21:44)
[2021-01-18] MEDS: Flomax 0.4 MG PO SCH (21:44)
[2021-01-19 05:37] LABS: Hematocrit 39.4 % (42-50); Hemoglobin 12.2 gm/dl (12.5-18.0); Mean Platelet Volume 10.5 fl (7.5-11.0); Platelet Count 195 K/mm3 (150-450); Red Blood Count 4.06 M/mm3 (4.1-5.6); Red Cell Distribution Width 13.9 % (11.5-14.0); White Blood Count 18.4 K/mm3 (4.0-10.5)
[2021-01-19] MEDS: DUONEB 0.5-3 MG/3 ml Neb IH SCH ×3 (05:50→13:32)
[2021-01-19] MEDS: Advair Hfa 115/21 Common canister IH SCH (05:51)
[2021-01-19] MEDS: solu-MEDROL 40 MG IV SCH ×2 (05:57→14:02)
[2021-01-19 06:01] LABS: ANION GAP 15.3 MEQ/L (5-15); BLOOD UREA NITROGEN 13 mg/dL (9-20); CHLORIDE 94 mmol/L (98-107); Carbon Dioxide 32 mmol/L (22-30); EST GLOMERULAR FILTRATION RATE > 60.0 ML/MIN; Glucose 264 mg/dL (74-106); Potassium 3.8 mmol/L (3.5-5.1); SODIUM 138 mmol/L (137-145)
[2021-01-19] MEDS: Lantus Insulin SQ SCH (07:54)
[2021-01-19] MEDS: HUMALOG SQ PRN ×2 (07:55→11:45)
--- NOTE | 2021-01-19 08:44 | XRAY ---
Exam: Two-view chest from 01/19/2021. Comparison: Two-view chest from 01/18/2021. Indication: Follow-up pneumonia. Findings: AP and lateral upright sitting chest films in a wheelchair were obtained. The transverse heart size is normal. The julia and mediastinal structures appear intact. There is some hyperinflation of the lungs representing no change. I again note some streaky atelectasis/infiltrate at the posterior left lung base which is about the same or slightly improved on the lateral image. There is minor focal eventration of the anterior aspect of the right hemidiaphragm representing no significant change in retrospect. An 8 mm nodular density is seen projected over the right lateral costophrenic angle on the AP image. This is not seen on yesterday's radiographs. I believe it is likely this represents the patient's right nipple. The remainder of the right lung is remarkable for minimal focal atelectasis or infiltrate at the medial right lung base which is similar to yesterday's exam. No pneumothorax or significant pleural fluid is seen. Minor degenerative changes are seen within the thoracic spine. Impression: 1. I again note mild bibasilar airspace opacities, as discussed above, consistent with atelectasis and/or infiltrates. There is equivocal evidence of slight improvement posteriorly at the lung bases on the lateral image. 2. Otherwise, the findings are similar consisting of hyperinflated lungs, but no other active disease.
[2021-01-19] MEDS: Spiriva 18 Mcg/Cap Inhaler IH SCH (09:00)
[2021-01-19] MEDS: ECOTRIN 81 MG PO SCH (09:05)
[2021-01-19] MEDS: Cymbalta 30 MG Capsule PO SCH (09:06)
[2021-01-19] MEDS: CLARITIN 10 MG PO SCH (09:07)
[2021-01-19] MEDS: Protonix 40MG Tablet PO SCH (09:07)
[2021-01-19] MEDS: MYSOLINE 50MG PO SCH ×2 (09:07→14:02)
[2021-01-19] MEDS: NEURONTIN 300 MG PO SCH ×2 (09:07→14:02)
[2021-01-19] MEDS: MYRBETRIQ PO SCH (09:08)
[2021-01-19] MEDS: NON-FORMULARY ITEM PO SCH (09:09)
[2021-01-19] MEDS: ENOXAPARIN SODIUM SQ SCH (09:09)
[2021-01-19] MEDS: Levofloxacin 500 MG Tablet PO SCH (10:49)
[2021-01-19] MEDS ORDERED: HUMULIN R SQ PRN (16:28)
[2021-01-19] MEDS ORDERED: HUMALOG SQ ONE (16:45)
[2021-01-19] MEDS ORDERED: HUMALOG SQ PRN (16:45)
[2021-01-19] MEDS ORDERED: HUMULIN R SQ ONE (16:45)
[2021-01-19 16:53] VITALS: BP 143/63; PULSE 111; O2SAT 90
== END 2021-01-19 17:00 | disposition swing bed (61) | DRG 194 ==
LOC: ED 12:25 → MED SURG 16:33
PROVIDERS: ADMIT Family Medicine; ATTEND Family Medicine
DX: J18.9 Pneumonia, unspecified organism (principal); J44.1 Chronic obstructive pulmonary disease with (acute) exacerbation; J44.0 Chronic obstructive pulmonary disease with (acute) lower respiratory infection; I10 Essential (primary) hypertension; E11.65 Type 2 diabetes mellitus with hyperglycemia; J20.9 Acute bronchitis, unspecified; Z79.899 Other long term (current) drug therapy; E78.00 Pure hypercholesterolemia, unspecified; F71 Moderate intellectual disabilities; R53.1 Weakness; Z20.828 Contact with and (suspected) exposure to other viral communicable diseases
CPT/HCPCS: 36000; 36415; 71045; 71046; 71275; 74230; 80048; 80053; 81001; 82947; 83605; 83735; 83880; 84484; 85025; 85027; 87040; 92611; 93005; 93041; 94640; 94760; 96365; 96367; 99285; U0003; J0696; J1650; J1815; J1817; J1956; J2920; A9270-GY

== ENCOUNTER 2021-01-19 16:33 | Inpatient (IN) | payer MEDICARE ==
[2021-01-19] MEDS ORDERED: HUMALOG SQ ONE (17:06)
[2021-01-19] MEDS ORDERED: TYLENOL 325 MG PO PRN (17:06)
[2021-01-19] MEDS ORDERED: MUCINEX DM 600/30MG PO PRN (17:06)
[2021-01-19] MEDS ORDERED: VENTOLIN COMMON CANISTER IH PRN (17:06)
[2021-01-19] MEDS ORDERED: Epipen 0.3 MG IM PRN (17:06)
[2021-01-19] MEDS ORDERED: Aplisol ID ONE (17:06)
[2021-01-19] MEDS ORDERED: Miralax Powder 17GM PACKET PO PRN (17:06)
[2021-01-19] MEDS ORDERED: Zofran 4 MG/2 ML VIAL IV PRN (17:06)
[2021-01-19] MEDS: DUONEB 0.5-3 MG/3 ml Neb IH SCH (19:26)
[2021-01-19] MEDS: Advair Hfa 115/21 Common canister IH SCH (19:27)
[2021-01-19] MEDS ORDERED: HUMULIN R IV ONE ×2 (20:12→22:12)
[2021-01-19] MEDS: Cymbalta 30 MG Capsule PO SCH (21:31)
[2021-01-19] MEDS: Flomax 0.4 MG PO SCH (21:32)
[2021-01-19] MEDS: MYRBETRIQ PO SCH (21:32)
[2021-01-19] MEDS: Protonix 40MG Tablet PO SCH (21:33)
[2021-01-19] MEDS: MYSOLINE 50MG PO SCH (21:33)
[2021-01-19] MEDS: NEURONTIN 300 MG PO SCH (21:33)
[2021-01-19] MEDS: ZOCOR 20MG PO SCH (21:34)
[2021-01-19] MEDS ORDERED: solu-MEDROL 40 MG IV SCH (22:00)
[2021-01-19] MEDS: solu-MEDROL 40 MG IV SCH (22:17)
[2021-01-19] MEDS: HUMALOG SQ PRN (23:39)
[2021-01-20] MEDS: DUONEB 0.5-3 MG/3 ml Neb IH SCH ×4 (05:29→19:17)
[2021-01-20] MEDS ORDERED: IMODIUM 2 MG PO PRN (05:45)
[2021-01-20 06:07] LABS: Hematocrit 39.5 % (42-50); Hemoglobin 12.1 gm/dl (12.5-18.0); Mean Cell Volume 97.8 fl (78-100); Mean Corpuscular Hgb Concent. 30.6 g/dl (32-36); Mean Platelet Volume 10.5 fl (7.5-11.0); Platelet Count 218 K/mm3 (150-450); Red Blood Count 4.04 M/mm3 (4.1-5.6); Red Cell Distribution Width 13.9 % (11.5-14.0); White Blood Count 23.9 K/mm3 (4.0-10.5)
[2021-01-20 06:54] LABS: ANION GAP 13.2 MEQ/L (5-15); BLOOD UREA NITROGEN 13 mg/dL (9-20); CHLORIDE 94 mmol/L (98-107); Calcium 10.3 mg/dL (8.4-10.2); Carbon Dioxide 35 mmol/L (22-30); Creatinine 1 0.77 mg/dL (0.66-1.25); EST GLOMERULAR FILTRATION RATE > 60.0 ML/MIN; Glucose 221 mg/dL (74-106); Potassium 4.7 mmol/L (3.5-5.1); SODIUM 138 mmol/L (137-145)
[2021-01-20] MEDS: Advair Hfa 115/21 Common canister IH SCH ×2 (07:40→19:20)
[2021-01-20] MEDS: Spiriva 18 Mcg/Cap Inhaler IH SCH (07:44)
[2021-01-20] MEDS: HUMALOG SQ PRN ×4 (07:51→22:14)
--- NOTE | 2021-01-20 07:53 | XRAY ---
Indication: Pneumonia. Comparison: January 19, 2021. AP/lateral chest unchanged again hyperinflated with mild bibasilar infiltrates/atelectasis. Heart not enlarged. No new cardiopulmonary abnormalities.
[2021-01-20] MEDS: Lantus Insulin SQ SCH (07:55)
[2021-01-20] MEDS: Protonix 40MG Tablet PO SCH ×2 (09:50→22:14)
[2021-01-20] MEDS: MYSOLINE 50MG PO SCH ×3 (09:50→22:15)
[2021-01-20] MEDS: NEURONTIN 300 MG PO SCH ×3 (09:50→22:15)
[2021-01-20] MEDS: Cymbalta 30 MG Capsule PO SCH ×2 (09:50→22:14)
[2021-01-20] MEDS: MYRBETRIQ PO SCH ×2 (09:52→22:15)
[2021-01-20] MEDS: solu-MEDROL 40 MG IV SCH ×2 (09:54→22:20)
[2021-01-20] MEDS: NON-FORMULARY ITEM PO SCH (09:54)
[2021-01-20] MEDS: Levofloxacin 500 MG Tablet PO SCH (10:09)
[2021-01-20] MEDS: CLARITIN 10 MG PO SCH (10:10)
[2021-01-20] MEDS: ECOTRIN 81 MG PO SCH (10:11)
[2021-01-20] MEDS: ENOXAPARIN SODIUM SQ SCH (10:11)
--- NOTE | 2021-01-20 17:06 | PCM.DS ---
Discharge Summary Date of Admission: 01/13/21 17:00 Date of Discharge: 01/19/2021 Admitting Physician: FELISHA NAVAS Consults: Pulmonary Primary Care Provider: FELISHA NAVAS Allergies Allergies adhesive tape Allergy (Verified 01/13/21 12:35) bee venom protein (honey bee) Allergy (Verified 01/13/21 12:35) Hospital Summary - Hospital Course Hospital Course: Pt. admitted and started on appropriate iv abx and steroids, pt. clinically improved with some strength, but continued his harsh breath sounds and airway congestion, after several days of admission, it was felt he had obtained maximal response from a hospitalization standpoint and discharged to Swing bed awaiting placement for rehab in nursing facility - Vitals & Intake/Output Vital Signs: Vital Signs Temperature 97.9 F 01/20/21 07:57 Pulse Rate 74 01/20/21 13:14 Respiratory Rate 20 01/20/21 13:14 Blood Pressure 145/67 01/20/21 07:57 O2 Sat by Pulse Oximetry 96 01/20/21 13:14 Intake & Output: Intake & Output 01/18/21 01/19/21 01/20/21 01/21/21 11:59 11:59 11:59 11:59 Intake Total 1380 480 Output Total 3400 800 Balance -2019 - Weight 76.6 kg - Lab Result Diagrams: 01/20/21 05:40 01/20/21 05:40 Lab Results-Last 24 Hrs: Lab Results-Last 24 Hours 01/19/21 01/19/21 01/19/21 Range/Units 17:54 19:42 21:25 WBC (4.0-10.5) K/mm3 RBC (4.1-5.6) M/mm3 Hgb (12.5-18.0) gm/dl Hct (42-50) % MCV (78-100) fl MCH (26-32) pg MCHC (32-36) g/dl RDW (11.5-14.0) % Plt Count (150-450) K/mm3 MPV (7.5-11.0) fl Sodium (137-145) mmol/L Potassium (3.5-5.1) mmol/L Chloride (98-107) mmol/L Carbon Dioxide (22-30) mmol/L Anion Gap (5-15) MEQ/L BUN (9-20) mg/dL Creatinine (0.66-1.25) mg/dL Estimated GFR ML/MIN Glucose 636 H* (74-106) mg/dL POC Glucometer 588 H* 529 H* (50 to 500) mg/dL Calcium (8.4-10.2) mg/dL 01/19/21 01/19/21 01/20/21 Range/Units 21:35 23:29 05:40 WBC 23.9 H (4.0-10.5) K/mm3 RBC 4.04 L (4.1-5.6) M/mm3 Hgb 12.1 L (12.5-18.0) gm/dl Hct 39.5 L (42-50) % MCV 97.8 (78-100) fl MCH 30.0 (26-32) pg MCHC 30.6 L (32-36) g/dl RDW 13.9 (11.5-14.0) % Plt Count 218 (150-450) K/mm3 MPV 10.5 (7.5-11.0) fl Sodium (137-145) mmol/L Potassium (3.5-5.1) mmol/L Chloride (98-107) mmol/L Carbon Dioxide (22-30) mmol/L Anion Gap (5-15) MEQ/L BUN (9-20) mg/dL Creatinine (0.66-1.25) mg/dL Estimated GFR ML/MIN Glucose 548 H* (74-106) mg/dL POC Glucometer 342 H (50 to 500) mg/dL Calcium (8.4-10.2) mg/dL 01/20/21 01/20/21 01/20/21 Range/Units 05:40 07:05 11:15 WBC (4.0-10.5) K/mm3 RBC (4.1-5.6) M/mm3 Hgb (12.5-18.0) gm/dl Hct (42-50) % MCV (78-100) fl MCH (26-32) pg MCHC (32-36) g/dl RDW (11.5-14.0) % Plt Count (150-450) K/mm3 MPV (7.5-11.0) fl Sodium 138 (137-145) mmol/L Potassium 4.7 D (3.5-5.1) mmol/L Chloride 94 L (98-107) mmol/L Carbon Dioxide 35 H (22-30) mmol/L Anion Gap 13.2 (5-15) MEQ/L BUN 13 (9-20) mg/dL Creatinine 0.77 (0.66-1.25) mg/dL Estimated GFR > 60.0 ML/MIN Glucose 221 H (74-106) mg/dL POC Glucometer 245 H 262 H (50 to 500) mg/dL Calcium 10.3 H (8.4-10.2) mg/dL 01/20/21 Range/Units 15:45 WBC (4.0-10.5) K/mm3 RBC (4.1-5.6) M/mm3 Hgb (12.5-18.0) gm/dl Hct (42-50) % MCV (78-100) fl MCH (26-32) pg MCHC (32-36) g/dl RDW (11.5-14.0) % Plt Count (150-450) K/mm3 MPV (7.5-11.0) fl Sodium (137-145) mmol/L Potassium (3.5-5.1) mmol/L Chloride (98-107) mmol/L Carbon Dioxide (22-30) mmol/L Anion Gap (5-15) MEQ/L BUN (9-20) mg/dL Creatinine (0.66-1.25) mg/dL Estimated GFR ML/MIN Glucose (74-106) mg/dL POC Glucometer 447 H (50 to 500) mg/dL Calcium (8.4-10.2) mg/dL Micro Results-Entire Visit: Accuchecks Date 01/19/21 Time 21:30 - Radiology Exams Ordered Rad Exams-Entire Visit: Radiology Procedures Category Date Time Status CHEST 2 VIEWS (PA AND LAT) Routine Exams 01/20/21 08:00 Completed - Procedures and Test Procedures and Tests throughout Hospitalization: Therapy Orders & Screens 01/19/21 17:06 OT Eval and Treat ( Order) ONCE Comment: Consulting Provider: Physician Instructions: Reason For Exam: Evaluate: Yes Treat: Yes Reason for Evaluation: DECONDITIONING R/T PNEUMONIA Diagnosis: DECONDITIONING R/T PNEUMONIA OT Screen per Nursing Assess ONCE Comment: Protocol Order Physician Instructions: Greater than 3 points order OT Admission Screening Reason For Exam: Triggered on Admission Diagnosis: PNE Open Wound/Cellutlitis/Pressure Ulcers: No Acute Fx/ORIF/Change in wt bearing status: Yes Severe MUSCULOSKELETAL pain: No ADL Dysfunction: Yes Acute CVA w/Hemiparesis/Hemiplegia: No Decreased Functional Mobility/Strength: Yes Sprain/Strain: No Acute Post-op Mobility Dysfunction: No Total Points: 9 PT Eval & Treat ( Order) ONCE Reason for Eval:: DECONDITIONING R/T PNEUMONIA Diagnosis: DECONDITIONING R/T PNEUMONIA PT Screen per Nursing Assess ONCE Comment: Protocol Order Physician Instructions: Greater than 3 points order PT Admission Screenin Reason For Exam: Triggered on Admission Diagnosis: PNE Open Wound/Cellutlitis/Pressure Ulcers: No Acute Fx/ORIF/Change in wt bearing status: Yes Severe MUSCULOSKELETAL pain: No ADL Dysfunction: Yes Acute CVA w/Hemiparesis/Hemiplegia: No Decreased Functional Mobility/Strength: Yes Sprain/Strain: No Acute Post-op Mobility Dysfunction: No Total Points: 9 Oxygen Nasal Cannula 3 lpm Comment: Respiratory Therapy Assessment DAILY Comment: ST Eval & Treat ( Order) .as ordered Comment: Physician Instructions: Reason For Exam: Evaluate: Yes Treat: Yes Reason for Eval: Aspiration, coughing while eating Diagnosis: PNE ST Screen per Nursing Assess ONCE Comment: Protocol Order Physician Instructions: Greater than [address] Admission Screening Reason For Exam: Triggered on Admission Diagnosis: PNE CVA/Dyshpagia/Aphasia: No Cognitive Deficits: Yes Dehydration/Nutrition Deficit: No Reflux: No Oral-Motor Difficulties: No Pneumonia: Yes Retirement Resident: No Total Points: 8 Discharge Exam General Appearance: no apparent distress Neurologic Exam: alert, cooperative Eye Exam: EOMI, eyes nml inspection Ears, Nose, Throat Exam: normal ENT inspection Neck Exam: normal inspection, non-tender, supple Respiratory Exam: diminished breath sounds, crackles/rales, rhonchi, wheezing Cardiovascular Exam: regular rate/rhythm, normal heart sounds Gastrointestinal/Abdomen Exam: soft, normal bowel sounds, No tenderness, No distention Male Genitalia Exam: deferred Rectal Exam: deferred Back Exam: normal inspection Extremity Exam: normal inspection, normal range of motion Final Diagnosis/Problem List - Final Discharge Diagnosis/Problem (1) Aspiration pneumonia Current Visit: No Status: Acute Code(s): J69.0 - PNEUMONITIS DUE TO INHALATION OF FOOD AND VOMIT (2) Bilateral pneumonia Current Visit: No Status: Acute Code(s): J18.9 - PNEUMONIA, UNSPECIFIED ORGA NISM (3) Chronic respiratory failure with hypoxia Current Visit: No Status: Acute (4) Cough Current Visit: No Status: Acute Code(s): R05 - COUGH (5) Generalized weakness Current Visit: No Status: Acute Code(s): R53.1 - WEAKNESS (6) Hypoxia Current Visit: No Status: Acute Code(s): R09.02 - HYPOXEMIA (7) Physical deconditioning Current Visit: No Status: Acute Code(s): R53.81 - OTHER MALAISE - Discharge Disposition: Swing Bed @ [facility] Condition: Stable Prescriptions: No Action Gabapentin 600 mg PO TID Omeprazole 40 mg PO BID Fluticasone/Salmeterol [Advair 250-50 Diskus] 1 puff IH BID Tiotropium [place] Inhaler [Spiriva 18 Mcg/Cap Inhaler] 18 mcg IH DAILY Primidone 50 MG [Mysoline 50Mg] 50 mg PO TID Tamsulosin HCl 0.4 mg [Flomax 0.4 MG] 0.4 mg PO QHS Duloxetine HCl [Cymbalta] 60 mg PO BID Divalproex Sodium [Depakote] 1,000 mg PO BID Multivitamin [Multivitamins] 1 each PO DAILY Albuterol Sulfate [Proair Hfa] 2 puff IH Q4H PRN PRN PRN Reason: Shortness Of Breath/Wheezing Polyethylene Glycol 3350 17 gm [Miralax Powder 17GM PACKET] 17 gm PO DAILY PRN #30 packet PRN Reason: Constipation Calcium Phosphate Trib/Vit D3 [Calcium-Vitamin D3 Gummies] 1 tab PO TID Loratadine 10 mg PO DAILY Atorvastatin Calcium 40 mg PO HS Ascorbic Acid [Fruit C-500] 500 mg PO DAILY Maltodextrin/Xanthan Gum [Thicken Up Clear Powder Packet] 1 packet PO ACHS Mirabegron [Myrbetriq] 50 mg PO BID Insulin Glargine [Lantus Insulin] 18 unit SQ DAILY Epinephrine [Epipen] 0.3 mg IM UD Dulaglutide [Trulicity] 3 mg SQ WEEKLY Empagliflozin [Jardiance] 10 mg PO DAILY Guaifenesin Dextromethorphan [MUCINEX Dm 600/30MG] 1 tablet PO Q12H PRN PRN Reason: CONGESTION Aspirin 81 mg PO DAILY Ipratropium/Albuterol Sulfate [Iprat-Albut 0.5-3(2.5) mg/3 ml] 3 ml IH TID DE N PRN Reason: Shortness Of Breath Prednisone 20 mg [Deltasone 20 mg] 20 mg PO DAILY Follow up with: FELISHA NAVAS [Primary Care Provider] -
[2021-01-20] MEDS: ZOCOR 20MG PO SCH (22:14)
[2021-01-20] MEDS: Flomax 0.4 MG PO SCH (22:15)
[2021-01-21] MEDS: DUONEB 0.5-3 MG/3 ml Neb IH SCH ×4 (07:10→19:32)
[2021-01-21] MEDS: Advair Hfa 115/21 Common canister IH SCH ×2 (07:12→19:35)
[2021-01-21] MEDS: Spiriva 18 Mcg/Cap Inhaler IH SCH (07:13)
[2021-01-21] MEDS: Lantus Insulin SQ SCH (07:46)
[2021-01-21] MEDS: HUMALOG SQ PRN ×3 (08:20→16:10)
[2021-01-21] MEDS: Protonix 40MG Tablet PO SCH ×2 (09:43→21:26)
[2021-01-21] MEDS: CLARITIN 10 MG PO SCH (09:43)
[2021-01-21] MEDS: ECOTRIN 81 MG PO SCH (09:43)
[2021-01-21] MEDS: MYSOLINE 50MG PO SCH ×3 (09:44→21:25)
[2021-01-21] MEDS: Levofloxacin 500 MG Tablet PO SCH (09:44)
[2021-01-21] MEDS: NEURONTIN 300 MG PO SCH ×3 (09:44→21:26)
[2021-01-21] MEDS: Cymbalta 30 MG Capsule PO SCH ×2 (09:44→21:26)
[2021-01-21] MEDS: NON-FORMULARY ITEM PO SCH (09:45)
[2021-01-21] MEDS: MYRBETRIQ PO SCH ×2 (09:46→21:27)
[2021-01-21] MEDS: ENOXAPARIN SODIUM SQ SCH (09:46)
[2021-01-21] MEDS: solu-MEDROL 40 MG IV SCH ×2 (09:49→21:56)
[2021-01-21] MEDS: Flomax 0.4 MG PO SCH (21:25)
[2021-01-21] MEDS: ZOCOR 20MG PO SCH (21:25)
[2021-01-22] MEDS: DUONEB 0.5-3 MG/3 ml Neb IH SCH ×4 (05:53→18:44)
[2021-01-22] MEDS: Advair Hfa 115/21 Common canister IH SCH ×2 (06:45→18:44)
[2021-01-22] MEDS: Spiriva 18 Mcg/Cap Inhaler IH SCH (07:23)
[2021-01-22] MEDS: Lantus Insulin SQ SCH (08:24)
[2021-01-22] MEDS: HUMALOG SQ PRN ×3 (08:24→17:19)
[2021-01-22] MEDS: Cymbalta 30 MG Capsule PO SCH ×2 (10:34→21:37)
[2021-01-22] MEDS: DELTASONE 20 MG PO SCH (10:35)
[2021-01-22] MEDS: ENOXAPARIN SODIUM SQ SCH (10:35)
[2021-01-22] MEDS: MYSOLINE 50MG PO SCH ×3 (10:36→21:36)
[2021-01-22] MEDS: NEURONTIN 300 MG PO SCH ×3 (10:36→21:36)
[2021-01-22] MEDS: Protonix 40MG Tablet PO SCH ×2 (10:36→21:36)
[2021-01-22] MEDS: ECOTRIN 81 MG PO SCH (10:36)
[2021-01-22] MEDS: CLARITIN 10 MG PO SCH (10:37)
[2021-01-22] MEDS: Levofloxacin 500 MG Tablet PO SCH (10:37)
[2021-01-22] MEDS: MYRBETRIQ PO SCH ×2 (10:38→21:37)
[2021-01-22] MEDS: PATIENT OWN MEDICATION PO SCH (13:55)
[2021-01-22] MEDS: NON-FORMULARY ITEM PO SCH (15:02)
[2021-01-22] MEDS: HUMALOG SQ ONE ×2 (21:35→23:52)
[2021-01-22] MEDS: ZOCOR 20MG PO SCH (21:36)
[2021-01-22] MEDS: Flomax 0.4 MG PO SCH (21:36)
[2021-01-23] MEDS: HUMALOG SQ PRN ×6 (01:42→21:56)
[2021-01-23] MEDS: DUONEB 0.5-3 MG/3 ml Neb IH SCH ×4 (05:50→19:50)
[2021-01-23] MEDS: Spiriva 18 Mcg/Cap Inhaler IH SCH (07:10)
[2021-01-23] MEDS: Advair Hfa 115/21 Common canister IH SCH ×2 (07:10→19:50)
[2021-01-23] MEDS: Lantus Insulin SQ SCH (08:27)
[2021-01-23] MEDS: CLARITIN 10 MG PO SCH (10:04)
[2021-01-23] MEDS: Cymbalta 30 MG Capsule PO SCH ×2 (10:04→21:46)
[2021-01-23] MEDS: Levofloxacin 500 MG Tablet PO SCH (10:04)
[2021-01-23] MEDS: DELTASONE 20 MG PO SCH (10:05)
[2021-01-23] MEDS: Protonix 40MG Tablet PO SCH ×2 (10:05→21:46)
[2021-01-23] MEDS: NEURONTIN 300 MG PO SCH ×3 (10:05→21:46)
[2021-01-23] MEDS: ECOTRIN 81 MG PO SCH (10:05)
[2021-01-23] MEDS: MYSOLINE 50MG PO SCH ×3 (10:05→21:45)
[2021-01-23] MEDS: MYRBETRIQ PO SCH ×2 (10:05→21:49)
[2021-01-23] MEDS: ENOXAPARIN SODIUM SQ SCH (10:06)
[2021-01-23] MEDS: PATIENT OWN MEDICATION PO SCH (10:06)
[2021-01-23] MEDS: ZOCOR 20MG PO SCH (21:45)
[2021-01-23] MEDS: Flomax 0.4 MG PO SCH (21:46)
[2021-01-23] MEDS ORDERED: HUMALOG SQ ONE (23:45)
[2021-01-24] MEDS: DUONEB 0.5-3 MG/3 ml Neb IH SCH ×3 (03:05→13:04)
[2021-01-24] MEDS: Spiriva 18 Mcg/Cap Inhaler IH SCH (07:09)
[2021-01-24] MEDS: Advair Hfa 115/21 Common canister IH SCH (07:09)
[2021-01-24 07:33] VITALS: BP 118/68
[2021-01-24] MEDS: Lantus Insulin SQ SCH (08:46)
[2021-01-24] MEDS: HUMALOG SQ PRN ×2 (08:47→12:27)
[2021-01-24] MEDS: NEURONTIN 300 MG PO SCH ×2 (10:46→15:53)
[2021-01-24] MEDS: ENOXAPARIN SODIUM SQ SCH (10:46)
[2021-01-24] MEDS: Protonix 40MG Tablet PO SCH (10:46)
[2021-01-24] MEDS: CLARITIN 10 MG PO SCH (10:46)
[2021-01-24] MEDS: MYSOLINE 50MG PO SCH ×2 (10:46→15:53)
[2021-01-24] MEDS: Cymbalta 30 MG Capsule PO SCH (10:46)
[2021-01-24] MEDS: Levofloxacin 500 MG Tablet PO SCH (10:46)
[2021-01-24] MEDS: ECOTRIN 81 MG PO SCH (10:46)
[2021-01-24] MEDS: DELTASONE 20 MG PO SCH (10:46)
[2021-01-24] MEDS: PATIENT OWN MEDICATION PO SCH (10:47)
[2021-01-24] MEDS: MYRBETRIQ PO SCH (10:47)
[2021-01-24 13:07] VITALS: PULSE 109; O2SAT 93
[2021-01-24] MEDS ORDERED: PATIENT OWN MEDICATION SQ SCH (14:30)
== END 2021-01-24 16:45 | disposition swing bed (61) | DRG 195 ==
LOC: MED SURG 17:00
PROVIDERS: ADMIT Family Medicine; ATTEND Family Medicine
DX: J18.9 Pneumonia, unspecified organism (principal); F71 Moderate intellectual disabilities; E11.65 Type 2 diabetes mellitus with hyperglycemia; J44.9 Chronic obstructive pulmonary disease, unspecified; Z79.899 Other long term (current) drug therapy; E78.00 Pure hypercholesterolemia, unspecified
CPT/HCPCS: 36415; 71046; 80048; 82947; 85027; 94640; 94760; J1650; J1815; J1817; J2920; 97110-GP; A9270-GY

== ENCOUNTER 2021-03-01 10:24 | Observation (INO) | payer MEDICARE ==
--- NOTE | 2021-03-01 10:56 | XRAY ---
Exam: AP upright portable chest film from 03/01/2021. Comparison: AP portable chest radiograph from 02/18/2021. Indication: 66-year-old male with chest pain. Findings: The film was obtained in a lordotic projection. The transverse heart size is normal. The julia and mediastinal structures appear unremarkable. EKG leads are seen. No vascular congestion, pneumothorax, or pleural fluid is seen. There is mild eventration of the right hemidiaphragm. Minimal airspace density partially obscures the lateral aspect of the left hemidiaphragm. In retrospect, I do not believe this represents a significant change. This may represent some focal left basilar atelectasis and/or scarring. No acute osseous process is seen. Impression: 1. Minimal airspace disease at the left lung base partially obscures a portion of the left hemidiaphragm and is likely due to mild left basilar atelectasis and/or scarring. I don't believe this represents a significant change from 02/18/2021. 2. Otherwise, no other acute cardiopulmonary disease is seen. 3. Mild undulating contour of the dome of the right hemidiaphragm consistent with eventration.
[2021-03-01 11:28] LABS: ALBUMIN 4.3 g/dL (3.5-5.0); ALKALINE PHOSPHATASE 73 U/L (38-126); ANION GAP 17.4 MEQ/L (5-15); BLOOD UREA NITROGEN 15 mg/dL (9-20); CHLORIDE 97 mmol/L (98-107); Calcium 9.8 mg/dL (8.4-10.2); Carbon Dioxide 29 mmol/L (22-30); Creatinine 1 0.67 mg/dL (0.66-1.25); EST GLOMERULAR FILTRATION RATE > 60.0 ML/MIN; Glucose 306 mg/dL (74-106); NT PRO BNP 51.8 pg/mL (0-900); Potassium 4.4 mmol/L (3.5-5.1); SGOT/AST 76 U/L (17-59); SGPT/ALT 51 U/L (0-50); SODIUM 138 mmol/L (137-145); Total Protein 7.2 g/dL (6.3-8.2)
[2021-03-01 11:30] LABS: Hematocrit 41.7 % (42-50); Hemoglobin 13.1 gm/dl (12.5-18.0); Mean Cell Volume 96.1 fl (78-100); Mean Corpuscular Hemoglobin 30.2 pg (26-32); Mean Corpuscular Hgb Concent. 31.4 g/dl (32-36); Mean Platelet Volume 10.5 fl (7.5-11.0); Platelet Count 236 K/mm3 (150-450); Red Blood Count 4.34 M/mm3 (4.1-5.6); White Blood Count 17.7 K/mm3 (4.0-10.5)
[2021-03-01] MEDS ORDERED: LEVOFLOXACIN 750MG/150ML D5W 750 MG/150 ML BAG IV STA (13:52)
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
[2021-03-01 14:00] LABS: ATYPICAL LYMPHS 1 %; BAND 1 % (0.0-2.0); Lymphocytes 64 % (24-44); Monocyte 2 % (0.0-12.0); Neutrophils 32 % (36.-66.); Total Cells Counted 100; Toxic Granulation 1+
[2021-03-01 14:01] LABS: ANISOCYTOSIS 1+; Platelet Estimate NORMAL (NORMAL)
[2021-03-01] MEDS ORDERED: HUMULIN R IV ONE ×2 (14:03→15:36)
[2021-03-01] MEDS ORDERED: LEVOFLOXACIN 750MG/150ML D5W 750 MG/150 ML BAG IV ONE (14:04)
[2021-03-01] MEDS ORDERED: HUMULIN R ONE (15:32)
[2021-03-01] MEDS ORDERED: Zofran 4 MG/2 ML VIAL IV PRN (15:41)
[2021-03-01] MEDS ORDERED: MORPHINE SULFATE 2 MG INJ IV PRN (15:41)
[2021-03-01] MEDS ORDERED: TYLENOL 325 MG PO PRN (15:41)
[2021-03-01] MEDS ORDERED: MUCINEX DM 600/30MG PO PRN (17:05)
[2021-03-01] MEDS ORDERED: EPINEPHRINE 0.3 MG IM PRN (17:05)
[2021-03-01] MEDS ORDERED: Ventolin Hfa MDI IH PRN (17:05)
[2021-03-01] MEDS ORDERED: Miralax Powder 17GM PACKET PO PRN (17:05)
[2021-03-01] MEDS ORDERED: EPINEPHRINE 1MG/ML AMP IM PRN (17:13)
[2021-03-01] MEDS ORDERED: DULAGLUTIDE 3 MG SQ SCH (17:15)
[2021-03-01] MEDS ORDERED: VENTOLIN COMMON CANISTER IH PRN (17:15)
[2021-03-01] MEDS ORDERED: MEDICATION INTERVENTION MC SCH (17:30)
[2021-03-01] MEDS ORDERED: MEDICATION INTERVENTION PO SCH (17:30)
[2021-03-01] MEDS: LOTRIMIN CREAM 30 GM TP SCH (18:13)
[2021-03-01] MEDS ORDERED: DUONEB 0.5-3 MG/3 ml Neb IH SCH (19:00)
[2021-03-01] MEDS: Advair Hfa 115/21 Common canister IH SCH (19:43)
[2021-03-01] MEDS: DUONEB 0.5-3 MG/3 ml Neb IH SCH (19:43)
[2021-03-01] MEDS: Protonix 40MG Tablet PO SCH (21:23)
[2021-03-01] MEDS: Flomax 0.4 MG PO SCH (21:23)
[2021-03-01] MEDS: NEURONTIN 300 MG PO SCH (21:23)
[2021-03-01] MEDS: Cymbalta 30 MG Capsule PO SCH (21:23)
[2021-03-01] MEDS: ZOCOR 20MG PO SCH (21:23)
[2021-03-01] MEDS: Pepcid 20 MG VIAL IV SCH (21:24)
[2021-03-01] MEDS: HUMALOG SQ PRN (21:24)
[2021-03-01] MEDS ORDERED: LIPITOR 40MG PO SCH (22:00)
[2021-03-01] MEDS ORDERED: INSULIN LISPRO SQ SCH (22:00)
[2021-03-01] MEDS ORDERED: NON-FORMULARY ITEM (Divalproex Sodium [Depakote] 1,000 MG) PO SCH (22:00)
[2021-03-01] MEDS ORDERED: NON-FORMULARY ITEM (Duloxetine Hcl [Cymbalta] 60 MG) PO SCH (22:00)
[2021-03-01] MEDS ORDERED: NON-FORMULARY ITEM (Omeprazole [Omeprazole] 40 MG) PO SCH (22:00)
[2021-03-02 04:53] LABS: Hematocrit 39.7 % (42-50); Hemoglobin 12.2 gm/dl (12.5-18.0); Mean Cell Volume 96.6 fl (78-100); Mean Corpuscular Hemoglobin 29.7 pg (26-32); Mean Corpuscular Hgb Concent. 30.7 g/dl (32-36); Mean Platelet Volume 10.3 fl (7.5-11.0); Platelet Count 200 K/mm3 (150-450); Red Blood Count 4.11 M/mm3 (4.1-5.6); Red Cell Distribution Width 15.2 % (11.5-14.0); White Blood Count 16.3 K/mm3 (4.0-10.5)
[2021-03-02 05:14] LABS: ALBUMIN 3.9 g/dL (3.5-5.0); ALKALINE PHOSPHATASE 53 U/L (38-126); ANION GAP 14.9 MEQ/L (5-15); BLOOD UREA NITROGEN 14 mg/dL (9-20); CHLORIDE 97 mmol/L (98-107); Calcium 9.4 mg/dL (8.4-10.2); Carbon Dioxide 30 mmol/L (22-30); Creatinine 1 0.69 mg/dL (0.66-1.25); EST GLOMERULAR FILTRATION RATE > 60.0 ML/MIN; Glucose 213 mg/dL (74-106); Potassium 3.9 mmol/L (3.5-5.1); SGOT/AST 46 U/L (17-59); SGPT/ALT 52 U/L (0-50); SODIUM 139 mmol/L (137-145); Total Protein 6.6 g/dL (6.3-8.2)
[2021-03-02 05:48] LABS: Eosinophil 1 % (0.00-3.0); Lymphocytes 58 % (24-44); Monocyte 1 % (0.0-12.0); Neutrophils 40 % (36.-66.); Total Cells Counted 100
[2021-03-02 05:49] LABS: ANISOCYTOSIS 1+; Platelet Estimate NORMAL (NORMAL)
[2021-03-02 05:50] LABS: Polychromasia 1+
[2021-03-02] MEDS: Spiriva 18 Mcg/Cap Inhaler IH SCH ×2 (06:57→09:34)
[2021-03-02] MEDS: DUONEB 0.5-3 MG/3 ml Neb IH SCH ×3 (06:57→19:51)
[2021-03-02] MEDS: Advair Hfa 115/21 Common canister IH SCH ×2 (06:57→19:51)
--- NOTE | 2021-03-02 08:11 | HP ---
CHIEF COMPLAINT: Chest pain and shortness of breath. HISTORY OF PRESENT ILLNESS: The patient is a 66 year-old white male patient apparently a resident at a local skilled nursing for rehab. The patient has challenged mental status. He does report that he was having some chest discomfort that lasted for about five minutes. He recently has been having a junky sounded breath that he cannot expectorate and the mucus is down deep in his chest. The patient has had multiple admissions in the past for chronic obstructive pulmonary disease exacerbation and possible pneumonia. The emergency room physician felt the patient needed to be admitted for IV antibiotic care and to rule out myocardial infarction. PAST MEDICAL HISTORY: Epilepsy. Peripheral neuropathy. Seizure disorder. Hyperlipidemia. Asthma. Chronic obstructive pulmonary disease. Pneumonia. Diabetes mellitus type II. Degenerative disc disease. Osteoarthritis. PAST SURGICAL HISTORY: He has had lumbar fusion surgeries done November and April 2019. 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 He previously has had a tracheostomy. Hernia surgery. Nose surgery. MEDICATIONS: Includes Albuterol PRN, vitamin C 500 mg daily, aspirin 81 mg daily, atorvastatin 80 mg a day, calcium two times a day, Lipitor 1,000 mg twice a day for a seizure disorder, Trulicity 3 mg weekly for diabetes mellitus type II, Cymbalta 60 mg b.i.d. for depression, Jardiance 10 mg daily for diabetes, EpiPen PRN for allergic reactions, Advair Diskus 250/50 - one tablet twice a day, gabapentin 300 mg t.i.d. He is on Mucinex twice a day, insulin Lispro subcu h.s. sliding scale coverage, insulin Glargine 4 units subcu in the morning, ipratropium-albuterol treatments t.i.d., loratadine 10 mg a day, Myrbetriq 50 mg b.i.d., omeprazole 40 mg b.i.d., oxybutynin 10 mg daily, primidone 50 mg t.i.d., Tamsulosin 0.4 mg at night, tiotropium bromide inhaler 18 mcg daily. ALLERGIES: BEE VENOM. ADHESIVE TAPE. PHYSICAL EXAMINATION: His temperature on admission was 97.8F, pulse 108, respiratory rate 20, blood pressure 133/84. O2 saturation 94% on 2 liters nasal cannula. HEENT: Normocephalic, atraumatic. Pupils equal round reactive to light. Extraocular movements intact. Oropharynx is pink and moist. NECK: Supple without lymphadenopathy, thyromegaly or JVD. CHEST: Rales throughout. HEART: Regular rate and rhythm without significant murmurs, rubs or gallops heard. ABDOMEN: Soft without palpable masses. EXTREMITIES: Without cyanosis, clubbing or edema. NEUROLOGIC: The patient is with no focal deficits but delayed mentation. LAB DATA AND TESTS: His EKG with Q-waves in III and aVF but no ST or T wave changes. His troponins have been less than 0.012. COVID test was negative. His white count was elevated at 17,700. On further review of the patient's chart record his white count is always elevated. He does have a predominance of lymphocytes worrisome for Postural Tachycardia Syndrome (POTS) or Chronic Lymphocytic Leukemia (CLL) although his platelet count is also normal. He had a second troponin done in the emergency room which was also less than 0.012. His metabolic panel showed a glucose of 306, BUN 15, creatinine 0.67. Electrolytes were essentially normal. Liver enzymes slightly elevated with AST 76 and ALT 51. ProBNP was not elevated. Chest x-ray showed minimal airspace disease left lung base partially obscuring the left hemidiaphragm due to mild left basilar atelectasis and/or scarring. Radiologist said that he does not believe this represents a significant change from 02/18/2021. No other cardiopulmonary disease was noted. ASSESSMENT: A patient with chest pain. He is here basically to rule out myocardial infarction with serial troponins. He has chronic obstructive pulmonary disease and what appears to be a chronic bronchitis. The patient has been admitted for Rocephin, Zithromax and nebulizer treatments on a PRN basis. He is already on guaifenesin. We will have the pathologist review the slide potentially for CLL. Continue the patient on his medication list. We did go over some of his long list of medications to try to help with poly pharmacy taking him off of the Thick-It as he is not thickening his fluids anyway and the Myrbetriq will hold as well as multivitamin, primidone we will hold as well and the calcium.
[2021-03-02] MEDS: HUMALOG SQ PRN ×4 (08:30→23:08)
[2021-03-02] MEDS: Pepcid 20 MG VIAL IV SCH ×2 (09:26→23:08)
[2021-03-02] MEDS: CLARITIN 10 MG PO SCH (09:29)
[2021-03-02] MEDS: Protonix 40MG Tablet PO SCH ×2 (09:29→23:08)
[2021-03-02] MEDS: Cymbalta 30 MG Capsule PO SCH ×2 (09:30→23:07)
[2021-03-02] MEDS: ECOTRIN 81 MG PO SCH (09:31)
[2021-03-02] MEDS: Ditropan XL 5 MG PO SCH (09:31)
[2021-03-02] MEDS: NEURONTIN 300 MG PO SCH ×3 (09:32→23:07)
[2021-03-02] MEDS: Vitamin C 500 MG PO SCH (09:33)
[2021-03-02] MEDS: LOTRIMIN CREAM 30 GM TP SCH (09:35)
[2021-03-02] MEDS: Lantus Insulin SQ SCH (09:36)
[2021-03-02] MEDS: LEVOFLOXACIN 750MG/150ML D5W 750 MG/150 ML BAG IV SCH (09:53)
[2021-03-02] MEDS ORDERED: NON-FORMULARY ITEM (Aspirin [Aspirin] 81 MG) PO SCH (10:00)
[2021-03-02] MEDS ORDERED: ASCORBIC ACID 500 MG PO SCH (10:00)
[2021-03-02] MEDS ORDERED: NON-FORMULARY ITEM (Empagliflozin [Jardiance] 10 MG) PO SCH (10:00)
[2021-03-02] MEDS ORDERED: NON-FORMULARY ITEM (Oxybutynin Chloride [Oxybutynin Chloride Er] 10 MG) PO SCH (10:00)
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
[2021-03-02] MEDS: Flomax 0.4 MG PO SCH (23:07)
[2021-03-02] MEDS: ZOCOR 20MG PO SCH (23:07)
[2021-03-02] MEDS: Zestril 10 MG PO SCH (23:19)
[2021-03-03 06:19] LABS: Hematocrit 38.2 % (42-50); Hemoglobin 11.7 gm/dl (12.5-18.0); Mean Corpuscular Hemoglobin 29.4 pg (26-32); Mean Corpuscular Hgb Concent. 30.6 g/dl (32-36); Mean Platelet Volume 10.4 fl (7.5-11.0); Platelet Count 214 K/mm3 (150-450); Red Blood Count 3.98 M/mm3 (4.1-5.6); White Blood Count 18.7 K/mm3 (4.0-10.5)
[2021-03-03 06:35] LABS: ALBUMIN 3.4 g/dL (3.5-5.0); ALKALINE PHOSPHATASE 43 U/L (38-126); ANION GAP 11.2 MEQ/L (5-15); BLOOD UREA NITROGEN 12 mg/dL (9-20); CHLORIDE 97 mmol/L (98-107); Calcium 8.8 mg/dL (8.4-10.2); Carbon Dioxide 32 mmol/L (22-30); Creatinine 1 0.71 mg/dL (0.66-1.25); EST GLOMERULAR FILTRATION RATE > 60.0 ML/MIN; Glucose 194 mg/dL (74-106); Potassium 3.8 mmol/L (3.5-5.1); SGOT/AST 36 U/L (17-59); SGPT/ALT 42 U/L (0-50); SODIUM 136 mmol/L (137-145)
[2021-03-03 07:02] LABS: ATYPICAL LYMPHS 2 %; BAND 2 % (0.0-2.0); Lymphocytes 48 % (24-44); Monocyte 7 % (0.0-12.0); Neutrophils 41 % (36.-66.); Polychromasia 1+; Total Cells Counted 100
[2021-03-03 07:03] LABS: ANISOCYTOSIS 1+; Platelet Estimate NORMAL (NORMAL); Poikilocytosis 1+
[2021-03-03] MEDS: DUONEB 0.5-3 MG/3 ml Neb IH SCH ×2 (07:50→13:26)
[2021-03-03] MEDS: Advair Hfa 115/21 Common canister IH SCH (07:54)
[2021-03-03] MEDS: Spiriva 18 Mcg/Cap Inhaler IH SCH (07:54)
[2021-03-03] MEDS: HUMALOG SQ PRN ×2 (08:17→12:47)
[2021-03-03 08:25] VITALS: O2SAT 96
[2021-03-03] MEDS: Cymbalta 30 MG Capsule PO SCH (09:40)
[2021-03-03] MEDS: Ditropan XL 5 MG PO SCH (09:40)
[2021-03-03] MEDS: ECOTRIN 81 MG PO SCH (09:41)
[2021-03-03] MEDS: Zestril 10 MG PO SCH (09:41)
[2021-03-03] MEDS: LOTRIMIN CREAM 30 GM TP SCH (09:41)
[2021-03-03] MEDS: NEURONTIN 300 MG PO SCH ×2 (09:41→14:53)
[2021-03-03] MEDS: Vitamin C 500 MG PO SCH (09:41)
[2021-03-03] MEDS: CLARITIN 10 MG PO SCH (09:41)
[2021-03-03] MEDS: Pepcid 20 MG VIAL IV SCH (09:41)
[2021-03-03] MEDS: Protonix 40MG Tablet PO SCH (09:41)
[2021-03-03] MEDS: Lantus Insulin SQ SCH (09:42)
[2021-03-03] MEDS: LEVOFLOXACIN 750MG/150ML D5W 750 MG/150 ML BAG IV SCH (09:45)
--- NOTE | 2021-03-03 11:52 | PCM.SSS ---
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 Respiratory Therapy Assessment DAILY Comment: Diagnosis: Chest pain rule out acute [place] 03/01/21 16:23 Incentive Spirometry TID Comment: Diagnosis: Chest pain rule out acute [place] 03/01/21 16:29 RT Screen per Nursing Assess ONCE Comment: Protocol Order Physician Instructions: Greater than 3 points order RT Admission Screen Reason For Exam: Triggered on Admission Diagnosis: Chest pain rule out acute [place] Diagnosis: Chest pain rule out acute [place] Pneumonia: Yes Home O2: Yes Asthma: No CHF: No Home CPAP/BIPAP: No Home Nebs/MDI: No Total Points: 8 ST Screen per Nursing Assess ONCE Comment: Protocol Order Physician Instructions: Greater than [address] Admission Screening Reason For Exam: Triggered on Admission Diagnosis: Chest pain rule out acute [place] CVA/Dyshpagia/Aphasia: No Cognitive Deficits: Yes Dehydration/Nutrition Deficit: No Reflux: No Oral-Motor Difficulties: Yes Pneumonia: Yes Half-Way Resident: Yes Total Points: 16 - Discharge Discharge Date: 03/03/21 Disposition: Home, Self-Care Condition: Stable Prescriptions: New Levofloxacin [Levaquin] 500 mg PO DAILY #5 tablet Continue Omeprazole 40 mg PO BID Fluticasone/Salmeterol [Advair 250-50 Diskus] 1 puff IH BID Tiotropium [place] Inhaler [Spiriva 18 Mcg/Cap Inhaler] 18 mcg IH DAILY Primidone 50 MG [Mysoline 50Mg] 50 mg PO TID Tamsulosin HCl 0.4 mg [Flomax 0.4 MG] 0.4 mg PO QHS Duloxetine HCl [Cymbalta] 60 mg PO BID Divalproex Sodium [Depakote] 1,000 mg PO BID Multivitamin [Multivitamins] 1 each PO DAILY Albuterol Sulfate [Proair Hfa] 2 puff IH Q4H PRN PRN PRN Reason: Shortness Of Breath/Wheezing Polyethylene Glycol 3350 17 gm [Miralax Powder 17GM PACKET] 17 gm PO DAILY PRN #30 packet PRN Reason: Constipation Calcium Phosphate Trib/Vit D3 [Calcium-Vitamin D3 Gummies] 1 tab PO TID Loratadine 10 mg PO DAILY Atorvastatin Calcium 40 mg PO HS Ascorbic Acid [Fruit C-500] 500 mg PO DAILY Maltodextrin/Xanthan Gum [Thicken Up Clear Powder Packet] 1 packet PO ACHS Mirabegron [Myrbetriq] 50 mg PO BID Insulin Glargine [Lantus Insulin] 40 unit SQ QAM Epinephrine [Epipen] 0.3 mg IM UD PRN PRN Reason: allergic reaction Dulaglutide [Trulicity] 3 mg SQ WEEKLY Empagliflozin [Jardiance] 10 mg PO DAILY Guaifenesin Dextromethorphan [MUCINEX Dm 600/30MG] 1 tablet PO Q12H PRN PRN Reason: CONGESTION Aspirin 81 mg PO DAILY Ipratropium/Albuterol Sulfate [Iprat-Albut 0.5-3(2.5) mg/3 ml] 3 ml IH TID Gabapentin 300 mg [Neurontin 300 mg] 300 mg PO TID capsule Oxybutynin Chloride [Oxybutynin Chloride ER] 10 mg PO DAILY Insulin Lispro [Humalog] 0 units SQ ACHS Outpatient Orders: CBC W DIFF Time Frame: 3 Days, Facility: [facility], Location: LABORATORY Follow up with: BARB SHORT [Primary Care Provider] -
[2021-03-03 12:50] VITALS: BP 130/84
[2021-03-03 13:30] VITALS: PULSE 96
[2021-03-03] MEDS ORDERED: BENADRYL 50 MG/ML IM ONE (15:18)
== END 2021-03-03 15:43 ==
LOC: ED 10:24 → MED SURG 15:38
PROVIDERS: ADMIT Family Medicine; ATTEND Family Medicine
DX: D72.829 Elevated white blood cell count, unspecified (principal); R07.9 Chest pain, unspecified; E11.9 Type 2 diabetes mellitus without complications; I10 Essential (primary) hypertension; E78.5 Hyperlipidemia, unspecified; Z79.899 Other long term (current) drug therapy; J96.10 Chronic respiratory failure, unspecified whether with hypoxia or hypercapnia; Z99.81 Dependence on supplemental oxygen; Z20.828 Contact with and (suspected) exposure to other viral communicable diseases; J44.9 Chronic obstructive pulmonary disease, unspecified
CPT/HCPCS: 36415; 71045; 80053; 82947; 83036; 83880; 84484; 85025; 93005; 93041; 93268; 94640; 94760; 96365; 96374; 99285; G0378; U0003; J1200; J1815; J1817; J1956; A9270-GY

== ENCOUNTER 2021-03-24 20:18 | Inpatient (IN) | payer MEDICARE ==
[2021-03-24] MEDS ORDERED: Sodium Chloride 0.9% 1000 ML 1,000 ML IV SCH (20:45)
[2021-03-24] MEDS ORDERED: TYLENOL 325 MG ONE ×2 (21:06→21:10)
[2021-03-24] MEDS ORDERED: TYLENOL 325 MG PO STA (21:07)
[2021-03-24 21:35] LABS: Hematocrit 41.6 % (42-50); Mean Cell Volume 94.8 fl (78-100); Mean Corpuscular Hemoglobin 29.6 pg (26-32); Mean Corpuscular Hgb Concent. 31.3 g/dl (32-36); Mean Platelet Volume 10.3 fl (7.5-11.0); Platelet Count 194 K/mm3 (150-450); Red Blood Count 4.39 M/mm3 (4.1-5.6)
[2021-03-24 21:44] LABS: INR 1.14 (0.8-3.0); PROTIME 13.5 SECONDS (9.4-12.5)
[2021-03-24 21:46] LABS: Appearance SLIGHTLY CLOUDY (CLEAR); Bilirubin NEGATIVE (NEGATIVE); Blood NEGATIVE Ery/ul (0-5); Epithelial Cells RARE /HPF (FEW); Glucose >=500 mg/dL (NEGATIVE); Ketones TRACE (NEGATIVE); Leukocyte Esterase MODERATE (NEGATIVE); Mucus SLIGHT /HPF (NEGATIVE); Nitrite NEGATIVE (NEGATIVE); Protein,Urine Dip NEGATIVE (Negative); Specific Gravity 1.028 (1.005-1.025); Urobilinogen NEGATIVE mg/dL (0-1)
[2021-03-24 21:48] LABS: ALBUMIN 4.3 g/dL (3.5-5.0); ALKALINE PHOSPHATASE 50 U/L (38-126); ANION GAP 16.7 MEQ/L (5-15); BLOOD UREA NITROGEN 16 mg/dL (9-20); CHLORIDE 98 mmol/L (98-107); Calcium 9.8 mg/dL (8.4-10.2); Carbon Dioxide 27 mmol/L (22-30); Creatinine 1 0.78 mg/dL (0.66-1.25); EST GLOMERULAR FILTRATION RATE > 60.0 ML/MIN; Glucose 162 mg/dL (74-106); Potassium 4.1 mmol/L (3.5-5.1); SGOT/AST 48 U/L (17-59); SGPT/ALT 29 U/L (0-50); SODIUM 137 mmol/L (137-145); Total Protein 7.3 g/dL (6.3-8.2)
--- NOTE | 2021-03-24 21:50 | XRAY ---
Indication: Fever, cough, short of breath. Comparison: March 01, 2021. Portable apical lordotic chest unchanged again demonstrating mild left base infiltrate/atelectasis and bilateral nipple shadows. Remaining heart and lungs unremarkable.
[2021-03-24 22:31] LABS: INFLUENZA A NEGATIVE (NEGATIVE); INFLUENZA B NEGATIVE (NEGATIVE)
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
[2021-03-25 01:32] LABS: BAND 4 % (0.0-2.0); Basophil 1 % (0.0-1.0); Eosinophil 3 % (0.00-3.0); Lymphocytes 44 % (24-44); Monocyte 4 % (0.0-12.0); Neutrophils 44 % (36.-66.); Platelet Estimate NORMAL (NORMAL); Total Cells Counted 100
[2021-03-25] MEDS: Flomax 0.4 MG PO SCH ×2 (02:56→22:01)
[2021-03-25] MEDS: NEURONTIN 300 MG PO SCH ×4 (02:56→22:01)
[2021-03-25 06:36] LABS: Hemoglobin 12.7 gm/dl (12.5-18.0); Mean Cell Volume 95.7 fl (78-100); Mean Corpuscular Hemoglobin 28.9 pg (26-32); Mean Corpuscular Hgb Concent. 30.2 g/dl (32-36); Mean Platelet Volume 10.4 fl (7.5-11.0); Platelet Count 185 K/mm3 (150-450); Red Blood Count 4.39 M/mm3 (4.1-5.6); Red Cell Distribution Width 15.1 % (11.5-14.0); White Blood Count 22.3 K/mm3 (4.0-10.5)
[2021-03-25 06:56] LABS: ALKALINE PHOSPHATASE 45 U/L (38-126); ANION GAP 14.8 MEQ/L (5-15); BLOOD UREA NITROGEN 19 mg/dL (9-20); CHLORIDE 102 mmol/L (98-107); Calcium 9.2 mg/dL (8.4-10.2); Carbon Dioxide 25 mmol/L (22-30); Creatinine 1 0.74 mg/dL (0.66-1.25); EST GLOMERULAR FILTRATION RATE > 60.0 ML/MIN; Glucose 185 mg/dL (74-106); Potassium 4.2 mmol/L (3.5-5.1); SGOT/AST 32 U/L (17-59); SGPT/ALT 25 U/L (0-50); SODIUM 137 mmol/L (137-145); Total Protein 6.9 g/dL (6.3-8.2)
[2021-03-25] MEDS: Sodium Chloride 0.9% 1000 ML 1,000 ML IV SCH ×2 (07:01→19:57)
[2021-03-25] MEDS: DUONEB 0.5-3 MG/3 ml Neb IH SCH ×3 (07:26→19:21)
[2021-03-25] MEDS ORDERED: EPINEPHRINE 0.3 MG IM PRN (07:27)
[2021-03-25] MEDS: Spiriva 18 Mcg/Cap Inhaler IH SCH ×2 (07:29→13:05)
[2021-03-25] MEDS: Advair Hfa 115/21 Common canister IH SCH ×2 (07:29→19:21)
[2021-03-25] MEDS ORDERED: [UNRECOGNIZED DRUG - OTHER] PO SCH (07:30)
[2021-03-25] MEDS ORDERED: INSULIN LISPRO SQ SCH (07:30)
[2021-03-25] MEDS ORDERED: DULAGLUTIDE 3 MG SQ SCH (07:30)
[2021-03-25] MEDS ORDERED: DIPHENHYDRAMINE HCL 25 MG PO SCH (07:30)
[2021-03-25] MEDS ORDERED: VENTOLIN COMMON CANISTER IH PRN (07:35)
[2021-03-25] MEDS ORDERED: Epipen 0.3 MG IM PRN (07:43)
[2021-03-25] MEDS ORDERED: BENADRYL 25 MG CAPSULE PO PRN (07:51)
[2021-03-25] MEDS ORDERED: MEDICATION INTERVENTION MC SCH ×2 (08:00→08:15)
[2021-03-25 09:10] LABS: BAND 2 % (0.0-2.0); Lymphocytes 42 % (24-44); Monocyte 2 % (0.0-12.0); Neutrophils 54 % (36.-66.); Platelet Estimate NORMAL (NORMAL); Total Cells Counted 100
[2021-03-25] MEDS: MYSOLINE 50MG PO SCH ×3 (09:48→22:01)
[2021-03-25] MEDS: Vitamin C 500 MG PO SCH (09:48)
[2021-03-25] MEDS: Calcium 500MG W/Vit D Tablet PO SCH ×3 (09:48→22:00)
[2021-03-25] MEDS: Ditropan XL 5 MG PO SCH (09:49)
[2021-03-25] MEDS: Protonix 40MG Tablet PO SCH (09:49)
[2021-03-25] MEDS: CLARITIN 10 MG PO SCH (09:49)
[2021-03-25] MEDS: ECOTRIN 81 MG PO SCH (09:49)
[2021-03-25] MEDS: SENOKOT 8.6 MG PO SCH (09:49)
[2021-03-25] MEDS: Cymbalta 30 MG Capsule PO SCH ×2 (09:49→22:01)
[2021-03-25] MEDS: THERAGRAN MULTIVITAMIN PO SCH (09:49)
[2021-03-25] MEDS: Lantus Insulin SQ SCH (09:57)
[2021-03-25] MEDS ORDERED: NON-FORMULARY ITEM (Duloxetine Hcl [Cymbalta] 60 MG) PO SCH (10:00)
[2021-03-25] MEDS ORDERED: NON-FORMULARY ITEM (Aspirin [Aspirin] 81 MG) PO SCH (10:00)
[2021-03-25] MEDS ORDERED: CALCIUM PHOSPHATE TRIB PO SCH (10:00)
[2021-03-25] MEDS ORDERED: NON-FORMULARY ITEM (Empagliflozin [Jardiance] 10 MG) PO SCH (10:00)
[2021-03-25] MEDS ORDERED: NON-FORMULARY ITEM (Omeprazole [Omeprazole] 40 MG) PO SCH (10:00)
[2021-03-25] MEDS ORDERED: VIT D3 PO SCH (10:00)
[2021-03-25] MEDS ORDERED: NON-FORMULARY ITEM (Multivitamin [Multivitamins] 1 EACH) PO SCH (10:00)
[2021-03-25] MEDS ORDERED: NON-FORMULARY ITEM (Oxybutynin Chloride [Oxybutynin Chloride Er] 10 MG) PO SCH (10:00)
[2021-03-25] MEDS ORDERED: ASCORBIC ACID 500 MG PO SCH (10:00)
[2021-03-25] MEDS: ROCEPHIN 1 Gm-D5w 50 ml Bag** 1 G/50 ML IVPB IV SCH (10:01)
[2021-03-25] MEDS: Zithromax 500 MG/ 250 ML NaCl Premix 500 MG/250 ML IVPB IV SCH (10:46)
[2021-03-25] MEDS ORDERED: HUMALOG SQ SCH (11:30)
[2021-03-25] MEDS: HUMALOG SQ PRN ×3 (12:42→22:01)
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
[2021-03-25] MEDS ORDERED: LIPITOR 40MG PO SCH (22:00)
[2021-03-25] MEDS: ZOCOR 20MG PO SCH (22:01)
[2021-03-26] MEDS: Sodium Chloride 0.9% 1000 ML 1,000 ML IV SCH ×2 (05:03→16:08)
[2021-03-26 05:19] LABS: Hematocrit 36.7 % (42-50); Hemoglobin 11.1 gm/dl (12.5-18.0); Mean Cell Volume 96.8 fl (78-100); Mean Corpuscular Hemoglobin 29.3 pg (26-32); Mean Corpuscular Hgb Concent. 30.2 g/dl (32-36); Mean Platelet Volume 10.5 fl (7.5-11.0); Platelet Count 166 K/mm3 (150-450); Red Blood Count 3.79 M/mm3 (4.1-5.6); White Blood Count 15.3 K/mm3 (4.0-10.5)
[2021-03-26 05:32] LABS: ALBUMIN 3.3 g/dL (3.5-5.0); ALKALINE PHOSPHATASE 39 U/L (38-126); ANION GAP 11.9 MEQ/L (5-15); BLOOD UREA NITROGEN 15 mg/dL (9-20); CHLORIDE 103 mmol/L (98-107); Calcium 8.7 mg/dL (8.4-10.2); Carbon Dioxide 28 mmol/L (22-30); Creatinine 1 0.69 mg/dL (0.66-1.25); EST GLOMERULAR FILTRATION RATE > 60.0 ML/MIN; Glucose 207 mg/dL (74-106); Potassium 3.7 mmol/L (3.5-5.1); SGOT/AST 24 U/L (17-59); SGPT/ALT 18 U/L (0-50); SODIUM 139 mmol/L (137-145)
[2021-03-26] MEDS: DUONEB 0.5-3 MG/3 ml Neb IH SCH ×3 (06:50→19:04)
[2021-03-26] MEDS: Advair Hfa 115/21 Common canister IH SCH ×2 (06:51→19:06)
[2021-03-26] MEDS: Spiriva 18 Mcg/Cap Inhaler IH SCH (06:51)
[2021-03-26 08:37] LABS: Lymphocytes 66 % (24-44); Monocyte 2 % (0.0-12.0); Neutrophils 32 % (36.-66.); Total Cells Counted 100
[2021-03-26 08:38] LABS: ANISOCYTOSIS 1+; Platelet Estimate NORMAL (NORMAL)
[2021-03-26] MEDS: Cymbalta 30 MG Capsule PO SCH ×2 (09:34→21:34)
[2021-03-26] MEDS: ROCEPHIN 1 Gm-D5w 50 ml Bag** 1 G/50 ML IVPB IV SCH (09:34)
[2021-03-26] MEDS: NEURONTIN 300 MG PO SCH ×3 (09:35→21:34)
[2021-03-26] MEDS: ECOTRIN 81 MG PO SCH (09:35)
[2021-03-26] MEDS: Protonix 40MG Tablet PO SCH (09:35)
[2021-03-26] MEDS: Vitamin C 500 MG PO SCH (09:35)
[2021-03-26] MEDS: THERAGRAN MULTIVITAMIN PO SCH (09:35)
[2021-03-26] MEDS: Calcium 500MG W/Vit D Tablet PO SCH ×3 (09:35→21:34)
[2021-03-26] MEDS: MYSOLINE 50MG PO SCH ×3 (09:35→21:34)
[2021-03-26] MEDS: SENOKOT 8.6 MG PO SCH (09:35)
[2021-03-26] MEDS: Ditropan XL 5 MG PO SCH (09:35)
[2021-03-26] MEDS: Lantus Insulin SQ SCH (09:36)
[2021-03-26] MEDS: CLARITIN 10 MG PO SCH (09:36)
[2021-03-26] MEDS: Zithromax 500 MG/ 250 ML NaCl Premix 500 MG/250 ML IVPB IV SCH (10:50)
[2021-03-26] MEDS: HUMALOG SQ PRN ×3 (12:24→22:14)
[2021-03-26] MEDS: NON-FORMULARY ITEM PO SCH (15:56)
[2021-03-26] MEDS: HUMALOG SQ SCH (17:39)
[2021-03-26] MEDS: Flomax 0.4 MG PO SCH (21:34)
[2021-03-26] MEDS: ZOCOR 20MG PO SCH (21:34)
[2021-03-27] MEDS: Sodium Chloride 0.9% 1000 ML 1,000 ML IV SCH ×4 (01:54→21:44)
[2021-03-27 05:37] LABS: Hematocrit 36.7 % (42-50); Mean Cell Volume 97.9 fl (78-100); Mean Corpuscular Hemoglobin 29.3 pg (26-32); Mean Platelet Volume 10.8 fl (7.5-11.0); Platelet Count 176 K/mm3 (150-450); Red Blood Count 3.75 M/mm3 (4.1-5.6); Red Cell Distribution Width 14.9 % (11.5-14.0); White Blood Count 12.9 K/mm3 (4.0-10.5)
[2021-03-27 06:27] LABS: ALBUMIN 3.5 g/dL (3.5-5.0); ALKALINE PHOSPHATASE 41 U/L (38-126); ANION GAP 10.7 MEQ/L (5-15); BLOOD UREA NITROGEN 13 mg/dL (9-20); CHLORIDE 103 mmol/L (98-107); Calcium 9.3 mg/dL (8.4-10.2); Carbon Dioxide 28 mmol/L (22-30); Creatinine 1 0.69 mg/dL (0.66-1.25); EST GLOMERULAR FILTRATION RATE > 60.0 ML/MIN; Glucose 143 mg/dL (74-106); Potassium 3.9 mmol/L (3.5-5.1); SGOT/AST 24 U/L (17-59); SGPT/ALT 17 U/L (0-50); SODIUM 138 mmol/L (137-145)
[2021-03-27] MEDS: Spiriva 18 Mcg/Cap Inhaler IH SCH (06:50)
[2021-03-27] MEDS: Advair Hfa 115/21 Common canister IH SCH ×2 (06:50→20:13)
[2021-03-27] MEDS: DUONEB 0.5-3 MG/3 ml Neb IH SCH ×3 (06:50→20:12)
[2021-03-27] MEDS: HUMALOG SQ SCH ×3 (07:42→16:52)
[2021-03-27 08:02] LABS: Eosinophil 2 % (0.00-3.0); Lymphocytes 69 % (24-44); Monocyte 1 % (0.0-12.0); Neutrophils 28 % (36.-66.); Platelet Estimate NORMAL (NORMAL); Total Cells Counted 100
[2021-03-27] MEDS: ROCEPHIN 1 Gm-D5w 50 ml Bag** 1 G/50 ML IVPB IV SCH (09:33)
[2021-03-27] MEDS: Lantus Insulin SQ SCH (09:35)
[2021-03-27] MEDS: THERAGRAN MULTIVITAMIN PO SCH (09:35)
[2021-03-27] MEDS: SENOKOT 8.6 MG PO SCH (09:35)
[2021-03-27] MEDS: Ditropan XL 5 MG PO SCH (09:35)
[2021-03-27] MEDS: CLARITIN 10 MG PO SCH (09:35)
[2021-03-27] MEDS: Cymbalta 30 MG Capsule PO SCH ×2 (09:35→21:32)
[2021-03-27] MEDS: ECOTRIN 81 MG PO SCH (09:35)
[2021-03-27] MEDS: NEURONTIN 300 MG PO SCH ×3 (09:35→21:32)
[2021-03-27] MEDS: Calcium 500MG W/Vit D Tablet PO SCH ×3 (09:36→21:32)
[2021-03-27] MEDS: Vitamin C 500 MG PO SCH (09:36)
[2021-03-27] MEDS: NON-FORMULARY ITEM PO SCH (09:36)
[2021-03-27] MEDS: Protonix 40MG Tablet PO SCH (09:38)
[2021-03-27] MEDS: MYSOLINE 50MG PO SCH ×3 (09:38→21:32)
[2021-03-27] MEDS: Zithromax 500 MG/ 250 ML NaCl Premix 500 MG/250 ML IVPB IV SCH (10:10)
[2021-03-27] MEDS: Nystatin SUSPENSION 60 ML PO SCH ×3 (10:10→21:49)
[2021-03-27] MEDS: HUMALOG SQ PRN ×3 (11:44→21:33)
[2021-03-27] MEDS: Flomax 0.4 MG PO SCH (21:32)
[2021-03-27] MEDS: ZOCOR 20MG PO SCH (21:32)
[2021-03-28 05:46] LABS: Hematocrit 36.5 % (42-50); Hemoglobin 10.9 gm/dl (12.5-18.0); Mean Cell Volume 96.3 fl (78-100); Mean Corpuscular Hemoglobin 28.8 pg (26-32); Mean Corpuscular Hgb Concent. 29.9 g/dl (32-36); Mean Platelet Volume 10.4 fl (7.5-11.0); Platelet Count 179 K/mm3 (150-450); Red Blood Count 3.79 M/mm3 (4.1-5.6); Red Cell Distribution Width 14.7 % (11.5-14.0); White Blood Count 13.1 K/mm3 (4.0-10.5)
[2021-03-28 06:36] LABS: ALBUMIN 3.5 g/dL (3.5-5.0); ALKALINE PHOSPHATASE 40 U/L (38-126); ANION GAP 12.8 MEQ/L (5-15); BLOOD UREA NITROGEN 14 mg/dL (9-20); CHLORIDE 101 mmol/L (98-107); Calcium 9.6 mg/dL (8.4-10.2); Carbon Dioxide 29 mmol/L (22-30); Creatinine 1 0.71 mg/dL (0.66-1.25); EST GLOMERULAR FILTRATION RATE > 60.0 ML/MIN; Glucose 152 mg/dL (74-106); SGOT/AST 20 U/L (17-59); SGPT/ALT 16 U/L (0-50); SODIUM 139 mmol/L (137-145); Total Protein 6.1 g/dL (6.3-8.2)
[2021-03-28] MEDS: DUONEB 0.5-3 MG/3 ml Neb IH SCH ×4 (06:53→19:18)
[2021-03-28] MEDS: Advair Hfa 115/21 Common canister IH SCH ×2 (06:54→19:18)
[2021-03-28] MEDS: Spiriva 18 Mcg/Cap Inhaler IH SCH (06:54)
[2021-03-28] MEDS: HUMALOG SQ SCH ×3 (07:46→17:49)
[2021-03-28] MEDS: HUMALOG SQ PRN ×4 (07:47→21:59)
[2021-03-28] MEDS: SENOKOT 8.6 MG PO SCH (09:49)
[2021-03-28] MEDS: THERAGRAN MULTIVITAMIN PO SCH (09:49)
[2021-03-28] MEDS: Calcium 500MG W/Vit D Tablet PO SCH ×3 (09:49→21:58)
[2021-03-28] MEDS: ECOTRIN 81 MG PO SCH (09:49)
[2021-03-28] MEDS: Cymbalta 30 MG Capsule PO SCH ×2 (09:50→21:58)
[2021-03-28] MEDS: Protonix 40MG Tablet PO SCH (09:50)
[2021-03-28] MEDS: NEURONTIN 300 MG PO SCH ×3 (09:50→21:58)
[2021-03-28] MEDS: CLARITIN 10 MG PO SCH (09:50)
[2021-03-28] MEDS: Ditropan XL 5 MG PO SCH (09:51)
[2021-03-28] MEDS: Lantus Insulin SQ SCH (09:51)
[2021-03-28] MEDS: Vitamin C 500 MG PO SCH (09:51)
[2021-03-28] MEDS: MYSOLINE 50MG PO SCH ×3 (09:52→21:58)
[2021-03-28] MEDS: Nystatin SUSPENSION 60 ML PO SCH ×3 (09:52→21:58)
[2021-03-28] MEDS: Sodium Chloride 0.9% 1000 ML 1,000 ML IV SCH (10:01)
[2021-03-28] MEDS: ROCEPHIN 1 Gm-D5w 50 ml Bag** 1 G/50 ML IVPB IV SCH (10:07)
[2021-03-28] MEDS: NON-FORMULARY ITEM PO SCH (10:07)
[2021-03-28] MEDS: Zithromax 500 MG/ 250 ML NaCl Premix 500 MG/250 ML IVPB IV SCH (10:57)
[2021-03-28 15:03] LABS: ANISOCYTOSIS 1+; Lymphocytes 56 % (24-44); Neutrophils 44 % (36.-66.); Platelet Estimate NORMAL (NORMAL); Total Cells Counted 100
[2021-03-28] MEDS: Flomax 0.4 MG PO SCH (21:58)
[2021-03-28] MEDS: ZOCOR 20MG PO SCH (21:58)
[2021-03-29] MEDS: DUONEB 0.5-3 MG/3 ml Neb IH SCH (06:21)
[2021-03-29] MEDS: Advair Hfa 115/21 Common canister IH SCH (06:23)
[2021-03-29] MEDS: Spiriva 18 Mcg/Cap Inhaler IH SCH (06:24)
[2021-03-29] MEDS: HUMALOG SQ SCH (08:08)
[2021-03-29] MEDS: HUMALOG SQ PRN (08:08)
[2021-03-29 08:31] VITALS: BP 139/60; PULSE 88; O2SAT 90
--- NOTE | 2021-03-29 08:34 | CONS ---
CONSULT DATE: 03/28/2021 HISTORY: Blue Bell is a 66-year-old male with long standing history of chronic obstructive pulmonary disease and recurrent episodes of aspiration pneumonia, well known to me, who has been hospitalized with [facility]. He presented here on 03/25/2021 with complaints of increasing cough, shortness of breath and chills. The patient had fever of 102.2F and heart rate of 129 with blood pressure of 172/45. He is saturating 90% on nasal cannula. His white count was 22.3. Lactic acid was 1.2. Chest x-ray showed pneumonia. The patient has been admitted to Med/Surg floor where he is being currently treated. At the time of my evaluation today he appears a lot improved. He is sitting in chair able to carry out a conversation. He is currently on oxygen via nasal cannula. He denies any significant cough, chest pain or any acute pulmonary symptoms. PAST MEDICAL HISTORY: Positive for chronic obstructive pulmonary disease, chronic hypoxemia, history of diabetes mellitus, degenerative disc disorder, osteoarthritis and depression. PAST SURGICAL HISTORY: He had a previous tracheostomy. He also had lumbar fusion in 2019. PERSONAL AND SOCIAL HISTORY: The patient is cared for by a sister. MEDICATIONS: Medications are reviewed. ALLERGIES: ADHESIVE TAPE. BEE VENOM PROTEIN. PHYSICAL EXAMINATION: This is an elderly male who appears comfortable. Vital signs noted. HEENT: Normocephalic. Oral exam shows small oropharynx. NECK: Supple. CVS: First and second heart sounds are normal, regular, rhythmic. RESPIRATORY: Shows diminished breath sounds. ABDOMEN: Soft. EXTREMITIES: Trace edema is noted. LABORATORY DATA AND TESTS: Labs and x-rays reviewed. ASSESSMENT: This is a 66-year-old male admitted with: 1) Recurrent aspiration pneumonia. The patient has underlying mental condition with dysphagia and despite multiple recommendations in the past he sometimes he gets into hurry during meals leading to aspiration. 2) Underlying chronic obstructive pulmonary disease with exacerbation. 3) Chronic hypoxemia. 4) Diabetes mellitus. 5) Comorbidities listed above. RECOMMENDATIONS: The patient has already shown clinical improvement, continue antibiotics, continue bronchodilators. He is being followed by speech therapy and has been advised Thick-It for liquids. Continue other supportive care. Deep vein thrombosis and GI prophylaxis. The family is looking at placement, when ready for discharge will follow up in outpatient setting. Thank you for allowing me to participate in the care of Blue Bell.
[2021-03-29] MEDS: ECOTRIN 81 MG PO SCH (09:18)
[2021-03-29] MEDS: Ditropan XL 5 MG PO SCH (09:18)
[2021-03-29] MEDS: Calcium 500MG W/Vit D Tablet PO SCH (09:18)
[2021-03-29] MEDS: THERAGRAN MULTIVITAMIN PO SCH (09:18)
[2021-03-29] MEDS: SENOKOT 8.6 MG PO SCH (09:18)
[2021-03-29] MEDS: Vitamin C 500 MG PO SCH (09:18)
[2021-03-29] MEDS: CLARITIN 10 MG PO SCH (09:19)
[2021-03-29] MEDS: Cymbalta 30 MG Capsule PO SCH (09:19)
[2021-03-29] MEDS: MYSOLINE 50MG PO SCH (09:19)
[2021-03-29] MEDS: Protonix 40MG Tablet PO SCH (09:19)
[2021-03-29] MEDS: NEURONTIN 300 MG PO SCH (09:19)
[2021-03-29] MEDS: Nystatin SUSPENSION 60 ML PO SCH (09:20)
[2021-03-29] MEDS: Lantus Insulin SQ SCH (09:20)
[2021-03-29] MEDS: NON-FORMULARY ITEM PO SCH (09:20)
[2021-03-29] MEDS: Zithromax 500 MG/ 250 ML NaCl Premix 500 MG/250 ML IVPB IV SCH (09:59)
[2021-03-29] MEDS: ROCEPHIN 1 Gm-D5w 50 ml Bag** 1 G/50 ML IVPB IV SCH (11:25)
[2021-03-31] MEDS ORDERED: PATIENT OWN MEDICATION SQ SCH (10:00)
--- NOTE | 2021-04-03 19:53 | PCM.DS ---
Discharge Summary Date of Admission: 03/25/21 14:37 Date of Discharge: 03/29/2021 Admitting Physician: BRIAN SALAZAR DO Consults: Consults on Case 03/27/21 09:49 Consult Pulmonology ROUTINE Primary Care Provider: FELISHA NAVAS Allergies Allergies adhesive tape Allergy (Verified 03/24/21 20:43) bee venom protein (honey bee) Allergy (Verified 03/24/21 20:43) Hospital Summary - Hospital Course Hospital Course: Pt. admitted for general weak episodes and a persistently bad appearing chest x- ray. Pt. remained stable during hospitalization and no change noted from baseline, there was nothing further to be gained from continued hospitalization and patient was stable to discharge to home. Pt. did note a persistent burning of his tongue and was started on oral swish and spit antifungal as he has been on several antibiotics for several weeks per month over the past several months. - Vitals & Intake/Output Vital Signs: Vital Signs Temperature 97.5 F 03/29/21 12:00 Pulse Rate 88 03/29/21 12:00 Respiratory Rate 20 03/29/21 12:00 Blood Pressure 139/60 03/29/21 12:00 O2 Sat by Pulse Oximetry 90 L 03/29/21 12:00 - Lab Result Diagrams: 03/28/21 04:35 03/28/21 04:35 Micro Results-Entire Visit: Microbiology 03/24/21 21:20 Blood Culture Gram Stain - Final Blood Blood Culture - Final Coagulase Negative Staph. Possible Contaminant. Clinical judgement required. No further workup performed. 03/24/21 20:36 Blood Culture Gram Stain - Final Blood Not Reportable Blood Culture - Final NO GROWTH 03/24/21 20:43 Urine Culture - Final Urine, Void NO GROWTH - Procedures and Test Procedures and Tests throughout Hospitalization: Therapy Orders & Screens 03/24/21 23:45 Oxygen Nasal Cannula 5 lpm Comment: 03/25/21 01:27 Respiratory Therapy Assessment DAILY Comment: Diagnosis: Pneumonia 03/25/21 02:34 RT Screen per Nursing Assess ONCE Comment: Protocol Order Physician Instructions: Greater than 3 points order RT Admission Screen Reason For Exam: Triggered on Admission Diagnosis: Pneumonia Diagnosis: Pneumonia Pneumonia: Yes Home O2: Yes Asthma: No CHF: No Home CPAP/BIPAP: No Home Nebs/MDI: Yes Total Points: 13 ST Screen per Nursing Assess ONCE Comment: Protocol Order Physician Instructions: Greater than [address] Admission Screening Reason For Exam: Triggered on Admission Diagnosis: Pneumonia CVA/Dyshpagia/Aphasia: No Cognitive Deficits: No Dehydration/Nutrition Deficit: No Reflux: Yes Oral-Motor Difficulties: No Pneumonia: Yes Custodial Resident: No Total Points: 8 Discharge Exam General Appearance: no apparent distress, alert Neurologic Exam: alert, oriented x 3, cooperative, normal mood/affect, nml cerebellar function, sensation nml, No motor deficits Eye Exam: PERRL, EOMI, eyes nml inspection Ears, Nose, Throat Exam: normal ENT inspection, pharynx normal, moist mucous membranes Neck Exam: normal inspection, non-tender, supple, full range of motion Respiratory Exam: diminished breath sounds, prolonged expirations, crackles/rales, rhonchi, wheezing, No respiratory distress Cardiovascular Exam: regular rate/rhythm, normal heart sounds Gastrointestinal/Abdomen Exam: soft, No tenderness, No mass Male Genitalia Exam: deferred Rectal Exam: deferred Back Exam: normal inspection, normal range of motion, No CVA tenderness, No vertebral tenderness Extremity Exam: normal inspection, normal range of motion Skin Exam: normal color, warm, dry Final Diagnosis/Problem List - Final Discharge Diagnosis/Problem (1) COPD with exacerbation Status: Acute Code(s): J44.1 - CHRONIC OBSTRUCTIVE PULMONARY DISEASE W (ACUTE) EXACERBATION (2) Generalized weakness Status: Acute Code(s): R53.1 - WEAKNESS - Discharge Discharge Date: 03/29/21 Disposition: Home Health @ [facility] Condition: Stable Prescriptions: New Amox Tr/Potass Clav. 875 mg [Augmentin 875-125 Tablet] 1 each PO BID #10 tablet L.acidoph,Paracasei, B.lactis [Probiotic] 1 each PO DAILY #30 tab Azithromycin [Zithromax Tri-Jeff[place]] 500 mg PO UD #1 tablet Nystatin 60 ml [Nystatin SUSPENSION 60 ML] 5 ml PO TID Continue Omeprazole 40 mg PO BID Fluticasone/Salmeterol [Advair 250-50 Diskus] 1 puff IH BID Tiotropium [place] Inhaler [Spiriva 18 Mcg/Cap Inhaler] 18 mcg IH DAILY Primidone 50 MG [Mysoline 50Mg] 50 mg PO TID Tamsulosin HCl 0.4 mg [Flomax 0.4 MG] 0.4 mg PO QHS Duloxetine HCl [Cymbalta] 60 mg PO BID Divalproex Sodium [Depakote] 1,000 mg PO BID Multivitamin [Multivitamins] 1 each PO DAILY Albuterol Sulfate [Proair Hfa] 2 puff IH Q4H PRN PRN PRN Reason: Shortness Of Breath/Wheezing Calcium Phosphate Trib/Vit D3 [Calcium-Vitamin D3 Gummies] 1 tab PO TID Loratadine 10 mg PO DAILY Atorvastatin Calcium 40 mg PO HS Ascorbic Acid [Fruit C-500] 500 mg PO DAILY Maltodextrin/Xanthan Gum [Thicken Up Clear Powder Packet] 1 packet PO ACHS Insulin Glargine [Lantus Insulin] 40 unit SQ QAM Epinephrine [Epipen] 0.3 mg IM UD PRN PRN Reason: allergic reaction Dulaglutide [Trulicity] 3 mg SQ WEEKLY Empagliflozin [Jardiance] 10 mg PO DAILY Aspirin 81 mg PO DAILY Ipratropium/Albuterol Sulfate [Iprat-Albut 0.5-3(2.5) mg/3 ml] 3 ml IH TID Gabapentin 300 mg [Neurontin 300 mg] 300 mg PO TID capsule Oxybutynin Chloride [Oxybutynin Chloride ER] 10 mg PO DAILY Insulin Lispro [Humalog] 0 units SQ ACHS Diphenhydramine HCl 25 mg PO TIDPRN 30 Days tablet Sennosides [Senokot] 8.6 mg PO DAILY Instructions: Pneumonia in Adults, Aspiration Pneumonia (DC) Follow up with: SUMMER SINGER [ACTIVE STAFF] - 05/31/21 9:30 am FELISHA NAVAS [Primary Care Provider] - 04/05/21 10:00 am ELOINA ENGLE MD [COURTESY STAFF] - 04/05/21 2:30 pm
== END 2021-03-29 11:55 | disposition home health service (06) | DRG 178 ==
LOC: ED 20:18 → MED SURG 03-25 00:01 → OBSVTOIN 03-25 14:37
PROVIDERS: ADMIT Family Medicine; ATTEND Family Medicine
DX: J69.0 Pneumonitis due to inhalation of food and vomit (principal); J44.1 Chronic obstructive pulmonary disease with (acute) exacerbation; J96.11 Chronic respiratory failure with hypoxia; Z99.81 Dependence on supplemental oxygen; R07.9 Chest pain, unspecified; Z79.899 Other long term (current) drug therapy; R51.9 Headache, unspecified; E11.9 Type 2 diabetes mellitus without complications; E78.00 Pure hypercholesterolemia, unspecified; Z87.820 Personal history of traumatic brain injury; Z20.822 Contact with and (suspected) exposure to COVID-19
CPT/HCPCS: 36000; 36415; 71045; 80053; 81001; 82947; 83036; 83605; 84145; 85025; 85610; 87040; 87086; 87400; 93005; 93041; 94640; 94760; 99285; U0003; J0456; J0696; J1817; A9270-GY

== ENCOUNTER 2021-09-03 09:22 | Inpatient (IN) | payer MEDICARE ==
--- NOTE | 2021-09-03 10:04 | XRAY ---
Indication: Pneumonia. Comparison: March 24, 2021. Portable chest again demonstrates bibasilar subsegmental atelectasis/scarring. Remaining heart, upper lungs, and bony thorax unremarkable.
[2021-09-03 10:22] LABS: Absolute Neutrophil Ct (ANC) 4.39 (1.4-6.9); Basophil (Absolute #) 0.01 (0-0.4); Eosinophil % 1.2 % (0.00-5.0); Eosinophil (Absolute #) 0.11 (0-0.5); Hematocrit 41.7 % (42-50); Hemoglobin 13.1 gm/dl (12.5-18.0); Lymphocyte (Absolute #) 3.97 (1.0-4.6); Lymphocytes % 42.2 % (24.0-44.0); Mean Cell Volume 92.5 fl (78-100); Mean Corpuscular Hgb Concent. 31.4 g/dl (32-36); Mean Platelet Volume 10.2 fl (7.5-11.0); Monocyte (Absolute #) 0.93 (0.0-1.3); Monocytes % 9.9 % (0.0-12.0); Neutrophil % 46.6 % (36.0-66.0); Platelet Count 149 K/mm3 (150-450); Red Blood Count 4.51 M/mm3 (4.1-5.6); Red Cell Distribution Width 15.2 % (11.5-14.0); White Blood Count 9.4 K/mm3 (4.0-10.5)
[2021-09-03 10:27] LABS: ALBUMIN 4.1 g/dL (3.5-5.0); ALKALINE PHOSPHATASE 48 U/L (38-126); BLOOD UREA NITROGEN 15 mg/dL (9-20); CHLORIDE 99 mmol/L (98-107); Calcium 9.4 mg/dL (8.4-10.2); Carbon Dioxide 31 mmol/L (22-30); Creatinine 1 0.82 mg/dL (0.66-1.25); EST GLOMERULAR FILTRATION RATE > 60.0 ML/MIN; Glucose 107 mg/dL (74-106); Potassium 4.1 mmol/L (3.5-5.1); SGOT/AST 32 U/L (17-59); SGPT/ALT 23 U/L (0-50); SODIUM 140 mmol/L (137-145); Total Protein 6.8 g/dL (6.3-8.2)
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
--- NOTE | 2021-09-03 10:54 | XRAY ---
Indication: Neck pain. Status post fall. Multiple contiguous axial images obtained through the cervical spine. Sagittal and coronal reformatted images obtained. Comparison: February 18, 2021. Axial images again negative for acute fracture, suspicious bony lesions, or spinal canal stenosis. There remains minimal/mild multilevel degenerative endplate spurring, mild atlantoaxial degenerative arthropathy, and mild bilateral degenerative facet hypertrophy. Sagittal and coronal reformatted images again demonstrates lordotic straightening and C3-C4/C5-C7 degenerative disc space narrowing. No acute compression fracture, subluxation, or jumped facet. Normal appearing craniocervical junction. Visualized noncontrasted soft tissues again demonstrates mild bilateral carotid calcifications. Lung apices are clear. Impression: 1. Continued negative acute fracture/subluxation. 2. Again lordotic straightening and multilevel degenerative changes.
--- NOTE | 2021-09-03 10:57 | XRAY ---
Indication: Status post fall. Multiple contiguous axial images obtained through the head without contrast. Comparison: February 18, 2021. Again age-appropriate global atrophy and minimal periventricular degenerative micro-ischemia. No acute intracranial hemorrhage, abnormal extra-axial fluid collection, or mass effect. Fourth ventricle is midline without hydrocephalus. Bony calvarium intact. New moderate mucosal thickening both ethmoid and both maxillary sinuses. Visualized mastoid air cells are clear. Impression: New paranasal sinus disease. Continued nonacute senile brain.
[2021-09-03] MEDS ORDERED: solu-MEDROL 125 MG, Sterile H2O 10 ml 2 ML IV ONE ×2 (12:25)
[2021-09-03] MEDS ORDERED: DUONEB 0.5-3 MG/3 ml Neb IH ONE ×2 (12:25→13:16)
[2021-09-03] MEDS ORDERED: Sterile H2O 10 ml IJ ONE (12:29)
[2021-09-03] MEDS ORDERED: solu-MEDROL ONE (12:29)
[2021-09-03 14:35] LABS: INFLUENZA A NEGATIVE (NEGATIVE); INFLUENZA B NEGATIVE (NEGATIVE); RESPIRATORY SYNCTIAL VIRUS NEGATIVE (Negative)
[2021-09-03 14:44] LABS: SARS-CoV-2 Xpert Express POSITIVE (NEGATIVE)
[2021-09-03] MEDS ORDERED: REMDESIVIR 200 MG in Sodium Chloride 0.9% 250 ML 250 ML IV ONE (15:01)
[2021-09-03] MEDS ORDERED: ENOXAPARIN SODIUM SQ ONE ×3 (15:01→15:06)
[2021-09-03 15:31] LABS: Appearance SLIGHTLY CLOUDY (CLEAR); Bacteria RARE /HPF (NEGATIVE); Bilirubin NEGATIVE (NEGATIVE); Blood NEGATIVE Ery/ul (0-5); Epithelial Cells RARE /HPF (FEW); Glucose >=500 mg/dL (NEGATIVE); Ketones TRACE (NEGATIVE); Leukocyte Esterase MODERATE (NEGATIVE); Mucus SLIGHT /HPF (NEGATIVE); Nitrite NEGATIVE (NEGATIVE); Protein,Urine Dip NEGATIVE (Negative); Specific Gravity 1.029 (1.005-1.025); Urobilinogen NEGATIVE mg/dL (0-1); WBC 26-50 /HPF (0-5)
[2021-09-03] MEDS ORDERED: VENTOLIN COMMON CANISTER IH PRN (15:55)
[2021-09-03] MEDS ORDERED: HYDROCODONE-CHLORPHEN ER SUSP PO PRN (16:32)
[2021-09-03] MEDS ORDERED: Zofran 4 MG/2 ML VIAL IV PRN (16:32)
[2021-09-03] MEDS ORDERED: Ativan 2 MG/1 ML VIAL IV PRN (16:32)
[2021-09-03] MEDS ORDERED: Ativan 1 MG PO PRN (16:32)
[2021-09-03] MEDS ORDERED: PROTONIX 40 MG IV IV SCH (17:00)
[2021-09-03] MEDS ORDERED: Ventolin Hfa MDI IH PRN (17:05)
[2021-09-03] MEDS ORDERED: TYLENOL EXTRA STRENGTH 500 MG PO PRN (17:05)
[2021-09-03] MEDS ORDERED: EPINEPHRINE 0.3 MG/0.3 ML IM PRN (17:05)
[2021-09-03] MEDS ORDERED: MEDICATION INTERVENTION MC SCH (18:00)
[2021-09-03] MEDS ORDERED: Spiriva 18 Mcg/Cap Inhaler IH ONE (18:54)
[2021-09-03] MEDS ORDERED: ADVAIR/WIXELLA 250-50 DISKUS 14 DOSE IH ONE (18:58)
[2021-09-03] MEDS: ADVAIR/WIXELLA 250-50 DISKUS 14 DOSE IH SCH (19:00)
[2021-09-03] MEDS ORDERED: [UNRECOGNIZED DRUG - OTHER] PO SCH (22:00)
[2021-09-03] MEDS ORDERED: NON-FORMULARY ITEM (Duloxetine Hcl [Cymbalta] 60 MG Capsule.Dr) PO SCH (22:00)
[2021-09-03] MEDS ORDERED: NON-FORMULARY ITEM (Calcium Carbonate/Vitamin D3 [Calcium 600-Vit D3 400 Caplet] 1 EACH Ta PO SCH (22:00)
[2021-09-03] MEDS ORDERED: LIPITOR 40MG PO SCH (22:00)
[2021-09-03] MEDS ORDERED: DUONEB 0.5-3 MG/3 ml Neb IH SCH (22:00)
[2021-09-03] MEDS ORDERED: NON-FORMULARY ITEM (Divalproex Sodium [Depakote] 500 MG Tablet.Dr) PO SCH (22:00)
[2021-09-03] MEDS ORDERED: ALBUTEROL SULFATE 0.63 MG/3 ML IH SCH (22:00)
[2021-09-03] MEDS ORDERED: NON-FORMULARY ITEM (Omeprazole [Omeprazole] 40 MG Capsule.Dr) PO SCH (22:00)
[2021-09-03] MEDS ORDERED: ACARBOSE 50 MG PO SCH (22:00)
[2021-09-03] MEDS ORDERED: LEVOMEFOLATE CALCIUM 7.5 MG PO SCH (22:00)
[2021-09-03] MEDS: Calcium 500MG W/Vit D Tablet PO SCH (22:06)
[2021-09-03] MEDS: Colace 100 MG PO SCH (22:06)
[2021-09-03] MEDS: Cymbalta 30 MG Capsule PO SCH (22:06)
[2021-09-03] MEDS: MYSOLINE 50MG PO SCH (22:07)
[2021-09-03] MEDS: ZOCOR 20MG PO SCH (22:08)
[2021-09-03] MEDS: Protonix 40MG Tablet PO SCH (22:08)
[2021-09-03] MEDS: NEURONTIN 300 MG PO SCH (22:08)
[2021-09-04 06:06] LABS: Hemoglobin 12.6 gm/dl (12.5-18.0); Mean Corpuscular Hemoglobin 29.3 pg (26-32); Mean Corpuscular Hgb Concent. 31.5 g/dl (32-36); Mean Platelet Volume 10.6 fl (7.5-11.0); Platelet Count 159 K/mm3 (150-450); Red Cell Distribution Width 15.2 % (11.5-14.0); White Blood Count 10.9 K/mm3 (4.0-10.5)
[2021-09-04 06:45] LABS: ALBUMIN 3.8 g/dL (3.5-5.0); ALKALINE PHOSPHATASE 46 U/L (38-126); ANION GAP 13.7 MEQ/L (5-15); BLOOD UREA NITROGEN 17 mg/dL (9-20); CHLORIDE 100 mmol/L (98-107); Calcium 8.6 mg/dL (8.4-10.2); Carbon Dioxide 31 mmol/L (22-30); Creatinine 1 0.87 mg/dL (0.66-1.25); EST GLOMERULAR FILTRATION RATE > 60.0 ML/MIN; Glucose 127 mg/dL (74-106); Potassium 3.7 mmol/L (3.5-5.1); SGOT/AST 31 U/L (17-59); SGPT/ALT 20 U/L (0-50); SODIUM 141 mmol/L (137-145); Total Protein 6.7 g/dL (6.3-8.2)
[2021-09-04 07:02] LABS: Lymphocytes 60 % (24-44); Monocyte 8 % (0.0-12.0); Neutrophils 32 % (36.-66.); Total Cells Counted 100
[2021-09-04 07:03] LABS: Platelet Estimate NORMAL (NORMAL)
[2021-09-04] MEDS: Spiriva 18 Mcg/Cap Inhaler IH SCH (09:45)
[2021-09-04] MEDS: ADVAIR/WIXELLA 250-50 DISKUS 14 DOSE IH SCH ×2 (09:45→18:55)
[2021-09-04] MEDS ORDERED: NON-FORMULARY ITEM (Multivitamin [Multivitamins] 1 EACH Capsule) PO SCH (10:00)
[2021-09-04] MEDS ORDERED: NON-FORMULARY ITEM (Aspirin [Aspirin] 81 MG Tablet) PO SCH (10:00)
[2021-09-04] MEDS ORDERED: NON-FORMULARY ITEM (Mv-Mn/Iron/Folic Acid/Herb 190 [Vitamin D3 Complete Caplet] 1 EACH Tab PO SCH (10:00)
[2021-09-04] MEDS ORDERED: CLARITIN 10 MG PO SCH (10:00)
[2021-09-04] MEDS ORDERED: NON-FORMULARY ITEM (Fexofenadine Hcl [Allegra Allergy] 180 MG Tablet) PO SCH (10:00)
[2021-09-04] MEDS ORDERED: ASCORBIC ACID 500 MG PO SCH (10:00)
[2021-09-04] MEDS ORDERED: NON-FORMULARY ITEM (Oxybutynin Chloride [Oxybutynin Chloride Er] 10 MG Tab.Er.24) PO SCH (10:00)
[2021-09-04] MEDS ORDERED: Spiriva 18 Mcg/Cap Inhaler IH SCH (10:00)
[2021-09-04] MEDS: Flomax 0.4 MG PO SCH (11:18)
[2021-09-04] MEDS: Colace 100 MG PO SCH ×2 (11:18→21:50)
[2021-09-04] MEDS: Cymbalta 30 MG Capsule PO SCH ×2 (11:18→21:50)
[2021-09-04] MEDS: Protonix 40MG Tablet PO SCH ×2 (11:19→21:51)
[2021-09-04] MEDS: ECOTRIN 81 MG PO SCH (11:19)
[2021-09-04] MEDS: THERAGRAN MULTIVITAMIN PO SCH (11:19)
[2021-09-04] MEDS: NEURONTIN 300 MG PO SCH ×3 (11:19→21:51)
[2021-09-04] MEDS: ENOXAPARIN SODIUM SQ SCH (11:19)
[2021-09-04] MEDS: MYSOLINE 50MG PO SCH ×3 (11:20→21:51)
[2021-09-04] MEDS: CLARITIN 10 MG PO SCH (11:20)
[2021-09-04] MEDS: Calcium 500MG W/Vit D Tablet PO SCH ×3 (11:21→21:50)
[2021-09-04] MEDS: Ditropan XL 5 MG PO SCH (11:21)
[2021-09-04] MEDS: VITAMIN D PO SCH (11:22)
[2021-09-04] MEDS: JARDIANCE PO SCH (11:22)
[2021-09-04] MEDS: Lantus Insulin SQ SCH (11:23)
[2021-09-04] MEDS: Miralax Powder 17GM PACKET PO SCH (11:23)
[2021-09-04] MEDS: Vitamin C 500 MG PO SCH (11:23)
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
[2021-09-04] MEDS: DECADRON 10MG INJ. IV SCH (11:24)
[2021-09-04] MEDS: REMDESIVIR 100 MG in Sodium Chloride 0.9% 100 ML BAG 100 ML IV SCH (11:26)
[2021-09-04] MEDS: HUMALOG SQ PRN ×2 (16:49→21:52)
[2021-09-04] MEDS: ZOCOR 20MG PO SCH (21:51)
[2021-09-04] MEDS: TYLENOL EXTRA STRENGTH 500 MG PO PRN (22:46)
[2021-09-05] MEDS: TYLENOL EXTRA STRENGTH 500 MG PO PRN (03:11)
[2021-09-05 06:04] LABS: Hematocrit 40.4 % (42-50); Hemoglobin 12.6 gm/dl (12.5-18.0); Mean Corpuscular Hemoglobin 28.7 pg (26-32); Mean Corpuscular Hgb Concent. 31.2 g/dl (32-36); Mean Platelet Volume 10.4 fl (7.5-11.0); Platelet Count 167 K/mm3 (150-450); Red Blood Count 4.39 M/mm3 (4.1-5.6); Red Cell Distribution Width 15.4 % (11.5-14.0); White Blood Count 17.1 K/mm3 (4.0-10.5)
[2021-09-05] MEDS: Spiriva 18 Mcg/Cap Inhaler IH SCH (07:45)
[2021-09-05] MEDS: ADVAIR/WIXELLA 250-50 DISKUS 14 DOSE IH SCH ×2 (07:45→18:55)
[2021-09-05] MEDS: DECADRON 10MG INJ. IV SCH (09:19)
[2021-09-05] MEDS: ECOTRIN 81 MG PO SCH (09:19)
[2021-09-05] MEDS: Cymbalta 30 MG Capsule PO SCH ×2 (09:19→22:11)
[2021-09-05] MEDS: Protonix 40MG Tablet PO SCH ×2 (09:20→22:11)
[2021-09-05] MEDS: THERAGRAN MULTIVITAMIN PO SCH (09:20)
[2021-09-05] MEDS: Colace 100 MG PO SCH ×2 (09:20→22:11)
[2021-09-05] MEDS: NEURONTIN 300 MG PO SCH ×3 (09:20→22:11)
[2021-09-05] MEDS: MYSOLINE 50MG PO SCH ×3 (09:20→22:11)
[2021-09-05] MEDS: Flomax 0.4 MG PO SCH (09:20)
[2021-09-05] MEDS: Miralax Powder 17GM PACKET PO SCH (09:20)
[2021-09-05] MEDS: CLARITIN 10 MG PO SCH (09:20)
[2021-09-05] MEDS: ENOXAPARIN SODIUM SQ SCH (09:21)
[2021-09-05] MEDS: VITAMIN D PO SCH (09:21)
[2021-09-05] MEDS: JARDIANCE PO SCH (09:21)
[2021-09-05] MEDS: Calcium 500MG W/Vit D Tablet PO SCH ×3 (09:22→22:11)
[2021-09-05] MEDS: Vitamin C 500 MG PO SCH (09:22)
[2021-09-05] MEDS: Ditropan XL 5 MG PO SCH (09:22)
[2021-09-05] MEDS: Lantus Insulin SQ SCH (09:22)
[2021-09-05] MEDS: REMDESIVIR 100 MG in Sodium Chloride 0.9% 100 ML BAG 100 ML IV SCH (09:23)
[2021-09-05] MEDS ORDERED: Zithromax 250 MG TABLET PO SCH (10:00)
--- NOTE | 2021-09-05 10:23 | XRAY ---
Indication: Fever. Aspiration. Comparison: September 03, 2021. Portable chest unchanged again demonstrating mild bibasilar subsegmental atelectasis/scarring. Remaining heart and lungs unremarkable. No new/acute findings.
[2021-09-05] MEDS: ROCEPHIN 1 Gm-D5w 50 ml Bag** 1 G/50 ML IVPB IV SCH (10:24)
[2021-09-05] MEDS: SENOKOT 8.6 MG PO SCH (11:46)
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
[2021-09-05 15:22] LABS: Appearance CLEAR (CLEAR); Bilirubin NEGATIVE (NEGATIVE); Blood NEGATIVE Ery/ul (0-5); Glucose >=500 mg/dL (NEGATIVE); Ketones TRACE (NEGATIVE); Leukocyte Esterase NEGATIVE (NEGATIVE); Nitrite NEGATIVE (NEGATIVE); Protein,Urine Dip NEGATIVE (Negative); Specific Gravity 1.018 (1.005-1.025); Urobilinogen NEGATIVE mg/dL (0-1)
[2021-09-05] MEDS: HUMALOG SQ PRN ×2 (16:21→22:10)
[2021-09-05] MEDS: ZOCOR 20MG PO SCH (22:11)
[2021-09-06 05:06] LABS: Hematocrit 39.7 % (42-50); Hemoglobin 12.5 gm/dl (12.5-18.0); Mean Cell Volume 92.8 fl (78-100); Mean Corpuscular Hemoglobin 29.2 pg (26-32); Mean Corpuscular Hgb Concent. 31.5 g/dl (32-36); Mean Platelet Volume 10.6 fl (7.5-11.0); Platelet Count 163 K/mm3 (150-450); Red Blood Count 4.28 M/mm3 (4.1-5.6); Red Cell Distribution Width 15.4 % (11.5-14.0); White Blood Count 13.8 K/mm3 (4.0-10.5)
[2021-09-06] MEDS: ADVAIR/WIXELLA 250-50 DISKUS 14 DOSE IH SCH (07:25)
[2021-09-06] MEDS: Spiriva 18 Mcg/Cap Inhaler IH SCH (07:25)
[2021-09-06 07:44] VITALS: O2SAT 93
[2021-09-06] MEDS: ROCEPHIN 1 Gm-D5w 50 ml Bag** 1 G/50 ML IVPB IV SCH (07:56)
[2021-09-06] MEDS: THERAGRAN MULTIVITAMIN PO SCH (07:56)
[2021-09-06] MEDS: DECADRON 10MG INJ. IV SCH (07:56)
[2021-09-06] MEDS: NEURONTIN 300 MG PO SCH (07:56)
[2021-09-06] MEDS: Cymbalta 30 MG Capsule PO SCH (07:56)
[2021-09-06] MEDS: ECOTRIN 81 MG PO SCH (07:56)
[2021-09-06] MEDS: Protonix 40MG Tablet PO SCH (07:57)
[2021-09-06] MEDS: Flomax 0.4 MG PO SCH (07:57)
[2021-09-06] MEDS: ENOXAPARIN SODIUM SQ SCH (07:57)
[2021-09-06] MEDS: Colace 100 MG PO SCH (07:57)
[2021-09-06] MEDS: CLARITIN 10 MG PO SCH (07:57)
[2021-09-06] MEDS: Miralax Powder 17GM PACKET PO SCH (07:58)
[2021-09-06] MEDS: Lantus Insulin SQ SCH (07:58)
[2021-09-06] MEDS: HUMALOG SQ PRN (07:58)
[2021-09-06] MEDS: Calcium 500MG W/Vit D Tablet PO SCH (08:01)
[2021-09-06] MEDS: MYSOLINE 50MG PO SCH (08:01)
[2021-09-06] MEDS: Ditropan XL 5 MG PO SCH (08:01)
[2021-09-06] MEDS: Vitamin C 500 MG PO SCH (08:01)
[2021-09-06] MEDS: JARDIANCE PO SCH (08:02)
[2021-09-06] MEDS: SENOKOT 8.6 MG PO SCH (08:02)
[2021-09-06] MEDS: VITAMIN D PO SCH (08:03)
[2021-09-06] MEDS: REMDESIVIR 100 MG in Sodium Chloride 0.9% 100 ML BAG 100 ML IV SCH (09:13)
[2021-09-06 09:40] LABS: ANION GAP 11.9 MEQ/L (5-15); BLOOD UREA NITROGEN 16 mg/dL (9-20); CHLORIDE 98 mmol/L (98-107); Calcium 9.1 mg/dL (8.4-10.2); Carbon Dioxide 32 mmol/L (22-30); Creatinine 1 0.65 mg/dL (0.66-1.25); EST GLOMERULAR FILTRATION RATE > 60.0 ML/MIN; Glucose 184 mg/dL (74-106); Potassium 3.5 mmol/L (3.5-5.1); SODIUM 139 mmol/L (137-145)
[2021-09-06] MEDS ORDERED: Zithromax 250 MG TABLET PO SCH (10:00)
[2021-09-06 12:40] VITALS: BP 122/71; PULSE 86
--- NOTE | 2021-09-06 13:31 | PCM.DS ---
Discharge Summary Date of Admission: 09/05/21 00:03 Admitting Physician: HARINDER STATON Primary Care Provider: FELISHA NAVAS Allergies Allergies adhesive tape Allergy (Verified 03/24/21 20:43) bee venom protein (honey bee) Allergy (Verified 03/24/21 20:43) Hospital Summary - Hospital Course Hospital Course: Chief Complaint Diagnosis ASPIRATION PNEUMONIA - COVID 19 Allergies Allergy/AdvReac Type Severity Reaction Status Date / Time adhesive tape Allergy Verified 03/24/21 20:43 bee venom protein (honey bee) Allergy Verified 03/24/21 20:43 Vital Signs (Last 24 hours) Temp Pulse Resp BP Pulse Ox 09/06/21 12:00 98.3 F 86 122/71 93 L 09/06/21 11:42 17 09/06/21 10:00 20 09/06/21 07:42 98 F 78 20 114/69 93 L 09/06/21 07:25 70 17 95 09/06/21 06:00 18 09/06/21 05:55 74 18 96 09/06/21 04:00 19 09/06/21 03:59 98.1 F 79 21 124/72 94 L 09/06/21 02:00 77 20 95 09/06/21 00:00 22 09/05/21 23:39 97.4 F 95 H 23 110/60 94 L 09/05/21 22:00 92 H 22 94 L 09/05/21 20:00 23 09/05/21 19:35 98.2 F 90 18 119/68 92 L 09/05/21 18:55 97 H 16 94 L 09/05/21 17:56 96 H 14 97 09/05/21 16:00 98.4 F 86 14 122/63 93 L 09/05/21 15:00 88 09/05/21 14:00 84 16 Home Medications Medication Instructions Recorded Confirmed Last Taken Type Acarbose [Precose] 50 mg PO TID 09/03/21 09/03/21 Unknown History Acetaminophen 500 mg [Tylenol 500 mg PO TIDPRN PRN 09/03/21 09/03/21 Unknown History Extra Strength 500 mg] Albuterol Sulfate 0.63 mg IH TID 09/03/21 09/03/21 Unknown History Calcium Carbonate/Vitamin D3 1 each PO TID 09/03/21 09/03/21 Unknown History [Calcium 600-Vit D3 400 Caplet] Docusate Sodium 100 mg [Colace 100 mg PO BID 09/03/21 09/03/21 Unknown History 100 MG] Fexofenadine HCl [Jing Allergy] 180 mg PO DAILY 09/03/21 09/03/21 Unknown History Levomefolate Calcium 1 each PO BID 09/03/21 09/03/21 Unknown History [l-Methylfolate Calcium] Mv-Mn/Iron/Folic Acid/Herb 190 25 mcg PO DAILY 09/03/21 09/03/21 Unknown History [Vitamin D3 Complete Caplet] Polyethylene Glycol 3350 17 gm 17 gm PO DAILY 09/03/21 09/03/21 Unknown History [Miralax Powder 17GM PACKET] Cephalexin Mh 500 mg [Keflex 500 500 mg PO Q6H #28 cap 09/06/21 Unknown Rx mg] Current Medications Discontinued Medications Generic Name Dose Route Start Last Admin Trade Name Freq PRN Reason Stop Dose Admin Acetaminophen 500 - 1,000 mg 09/03/21 16:32 09/05/21 03:11 Acetaminophen 500 Mg Tablet PO 10/03/21 16:31 1,000 mg Q4H PRN PRN Administration Temp > 100.4 Orally Acetaminophen 500 mg 09/03/21 17:05 Acetaminophen 500 Mg Tablet PO 10/03/21 17:04 TIDPRN PRN PAIN Albuterol Sulfate 4 puff 09/03/21 15:55 Albuterol Common Canister Inhaler IH 10/03/21 15:54 Q4H PRN PRN SHORTNESS OF BREATH/WHEEZING Albuterol Sulfate gm 09/03/21 17:05 Albuterol Sulfate 8 Gm Mdi Hfa IH 10/03/21 17:04 Q4H PRN PRN SHORTNESS OF BREATH/WHEEZING Albuterol/Ipratropium 3 ml 09/03/21 12:25 09/03/21 13:28 Ipratropium/Albuterol Sulfate 3 Ml Ampul.Neb IH 09/03/21 12:26 3 ml STAT ONE Administration Albuterol/Ipratropium Confirm 09/03/21 13:16 Ipratropium/Albuterol Sulfate 3 Ml Ampul.Neb Administered 09/03/21 13:17 Dose 3 ml IH .STK-MED ONE Albuterol/Ipratropium 3 ml 09/03/21 22:00 Ipratropium/Albuterol Sulfate 3 Ml Ampul.Neb IH 10/03/21 21:59 QID AUNG Ascorbic Acid 500 mg 09/04/21 10:00 09/06/21 08:01 Ascorbic Acid 500 Mg Tablet PO 10/04/21 09:59 500 mg DAILY AUNG Administration Aspirin 81 mg 09/04/21 10:00 09/06/21 07:56 Aspirin 81 Mg Tablet.Ec PO 10/04/21 09:59 81 mg DAILY AUNG Administration Azithromycin 500 mg 09/05/21 10:00 09/05/21 10:24 Azithromycin 250 Mg Tablet PO 09/05/21 10:01 500 mg DAILY AUNG Administration Azithromycin 250 mg 09/06/21 10:00 09/06/21 08:04 Azithromycin 250 Mg Tablet PO 09/09/21 10:01 250 mg DAILY AUNG Administration Calcium Carbonate 1 tab 09/03/21 22:00 09/06/21 08:01 Calcium Carbonate 500 Mg/Vitamin D 1 Tab Tablet PO 10/03/21 21:59 1 tab TID AUNG Administration Chlorphenir/Hydrocodone Polistirex 5 ml 09/03/21 16:32 Hydrocodone/Chlorphen P-Stirex 1 Ml Shu.Er.12h PO 10/03/21 16:31 [id number] PRN COUGH Cholecalciferol 1,000 unit 09/04/21 10:00 09/06/21 08:03 Cholecalciferol (Vitamin D3) 1000 Unit Tablet PO 10/04/21 09:59 1,000 unit DAILY AUNG Administration Methylprednisolone Sodium 0 mg 09/03/21 12:25 09/03/21 12:31 Succinate 125 mg/ Sterile IV 09/03/21 12:26 125 mg Water 2 ml STAT ONE Administration Dexamethasone Sodium Phosphate 8 mg 09/04/21 10:00 09/06/21 07:56 Dexamethasone Sod Phosphate 10 Mg/Ml IV 09/14/21 09:59 8 mg DAILY AUNG Administration Divalproex Sodium 1,000 mg 09/03/21 22:00 09/06/21 08:00 Divalproex Sodium 250 Mg Tablet Delayed Release PO 10/03/21 21:59 1,000 mg BID AUNG Administration Docusate Sodium 100 mg 09/03/21 22:00 02/10/22 07:57 Docusate Sodium 100 Mg Capsule PO 10/03/21 21:59 Not Given BID AUNG Duloxetine HCl 60 mg 09/03/21 22:00 09/06/21 07:56 Duloxetine Hcl 30 Mg Cap PO 10/03/21 21:59 60 mg BID AUNG Administration Empagliflozin 10 mg 09/04/21 10:00 09/06/21 08:02 Empagliflozin 10 Mg Tablet PO 10/04/21 09:59 10 mg DAILY AUNG Administration Enoxaparin Sodium 40 mg 09/03/21 15:01 09/03/21 15:04 Enoxaparin Sodium 40 Mg/0.4 Ml Syringe SQ 09/03/21 15:02 Not Given STAT ONE Enoxaparin Sodium 40 mg 09/03/21 15:04 09/03/21 15:06 Enoxaparin Sodium 80 Mg/0.8 Ml Syringe SQ 09/03/21 15:05 40 mg STAT ONE Administration Enoxaparin Sodium Confirm 09/03/21 15:06 Enoxaparin Sodium 80 Mg/0.8 Ml Syringe Administered 09/03/21 15:07 Dose 80 mg SQ .STK-MED ONE Enoxaparin Sodium 40 mg 09/04/21 10:00 09/06/21 07:57 Enoxaparin Sodium 40 Mg/0.4 Ml Syringe SQ 10/04/21 09:59 40 mg DAILY AUNG Administration Gabapentin 300 mg 09/03/21 22:00 09/06/21 07:56 Gabapentin 300 Mg Capsule PO 10/03/21 21:59 300 mg TID AUNG Administration Remdesivir 200 mg/ Sodium 250 mls @ 125 mls/hr 09/03/21 15:01 09/03/21 18:08 Chloride IV 09/03/21 17:00 125 mls/hr ONCE ONE Administration Remdesivir 100 mg/ Sodium 100 mls @ 100 mls/hr 09/04/21 10:00 09/06/21 09:13 Chloride IV 09/07/21 10:59 100 mls/hr DAILY AUNG Administration Ceftriaxone Sodium/Dextrose 1 g in 50 mls @ 100 mls/hr 09/05/21 10:00 09/06/21 07:56 Rocephin 1 Gm-D5w 50 Ml Bag IV 09/08/21 09:59 100 mls/hr DAILY AUNG Administration Insulin Glargine 40 unit 09/04/21 10:00 09/06/21 07:58 Insulin Glargine 1 Unit SQ 10/04/21 09:59 40 unit QAM AUNG Administration Insulin Human Lispro 0 unit 09/03/21 16:32 09/06/21 07:58 Insulin Lispro 1 Unit SQ 10/03/21 16:31 8 unit UD PRN Administration HYPERGLYCEMIA Loratadine 10 mg 09/04/21 10:00 Loratadine 10 Mg Tablet PO 10/04/21 09:59 DAILY AUNG Loratadine 10 mg 09/04/21 10:00 09/06/21 07:57 Loratadine 10 Mg Tablet PO 10/04/21 09:59 10 mg DAILY AUNG Administration Lorazepam 1 mg 09/03/21 16:32 Lorazepam 2 Mg/1 Ml 2 Mg Vial IV 10/03/21 16:31 Q4H PRN PRN Anxiety/Sleep Lorazepam 1 mg 09/03/21 16:32 Lorazepam 1 Mg Tablet PO 10/03/21 16:31 Q4H PRN PRN Anxiety/Sleep Methylprednisolone Sodium Succinate Confirm 09/03/21 12:29 Methylprednis Sod Succ 125 Mg/2 Ml Vial Administered 09/03/21 12:30 Dose 125 mg .ROUTE .STK-MED ONE Miscellaneous Information 1 each 09/03/21 18:00 Medication Intervention 1 Each Each 10/03/21 17:59 .RN TO CHECK AUNG Multivitamins Therapeutic 1 tab 09/04/21 10:00 09/06/21 07:56 Multivitamins,Therapeutic 1 Tab Tab PO 10/04/21 09:59 1 tab DAILY AUNG Administration Non-Formulary Medication 1 packet 09/03/21 22:00 Maltodextrin/Xanthan Gum [Thicken Up Clear Powder Packet] PO 10/03/21 21:59 ACHS AUNG Non-Formulary Medication 1 each 09/03/21 22:00 Levomefolate Calcium [L-Methylfolate Calcium] PO 10/03/21 21:59 BID AUNG Non-Formulary Medication 0.3 mg 09/03/21 17:05 Epinephrine [Epipen 2-Jeffery] IM UD PRN allergic reaction Non-Formulary Medication 0.63 mg 09/03/21 22:00 Albuterol Sulfate [Albuterol Sulfate] 10/03/21 21:59 TID AUNG Ondansetron HCl 4 mg 09/03/21 16:32 Ondansetron Hcl 4 Mg/2 Ml Vial IV 10/03/21 16:31 Q6H PRN PRN NAUSEA/VOMITING Oxybutynin Chloride 10 mg 09/04/21 10:00 09/06/21 08:01 Oxybutynin Chloride Xl 5 Mg Tab PO 10/04/21 09:59 10 mg DAILY AUNG Administration Pantoprazole Sodium 40 mg 09/03/21 17:00 09/03/21 18:09 Pantoprazole 40 Mg Vial IV 10/03/21 16:59 Not Given Q24H10 AUNG Pantoprazole Sodium 40 mg 09/03/21 22:00 09/06/21 07:57 Protonix (Pantoprazole) 40 Mg Tablet PO 10/03/21 21:59 40 mg BID AUNG Administration Polyethylene Glycol 17 gm 09/04/21 10:00 09/06/21 07:58 Polyethylene Glycol 3350 17 Gm Packet PO 10/04/21 09:59 17 gm DAILY AUNG Administration Primidone 100 mg 09/03/21 22:00 09/06/21 08:01 Primidone 50 Mg Tablet PO 10/03/21 21:59 100 mg TID AUNG Administration Fluticasone/Salmeterol 1 each 09/03/21 22:00 09/06/21 07:25 Fluticasone/Salmeterol 250/50 Diskus 10/03/21 21:59 1 each BIDRT AUNG Administration Fluticasone/Salmeterol Confirm 09/03/21 18:58 Fluticasone/Salmeterol 250/50 Diskus Administered 09/03/21 18:59 Dose 1 each IH .STK-MED ONE Senna 8.6 mg 09/05/21 12:00 09/06/21 08:02 Senna 8.6 Mg Tablet PO 10/05/21 11:59 Not Given DAILY AUNG Simvastatin 40 mg 09/03/21 22:00 09/05/21 22:11 Simvastatin 20 Mg Tablet PO 10/03/21 21:59 40 mg HS AUNG Administration Sterile Water Confirm 09/03/21 12:29 Water For Injection,Sterile 10 Ml Vial Administered 09/03/21 12:30 Dose 10 ml IJ .STK-MED ONE Tamsulosin HCl 0.4 mg 09/04/21 10:00 09/06/21 07:57 Tamsulosin Hcl 0.4 Mg Cap PO 10/04/21 09:59 0.4 mg DAILY [facility] Administration Tiotropium [place] ea 09/04/21 10:00 Tiotropium [place] 18 Mcg/Cap Inhaler IH 10/04/21 09:59 DAILY [facility] Tiotropium [place] Confirm 09/03/21 18:54 Tiotropium [place] 18 Mcg/Cap Inhaler Administered 09/03/21 18:55 Dose 1 ea IH .STK-MED ONE Tiotropium [place] 1 ea 09/04/21 07:00 09/06/21 07:25 Tiotropium [place] 18 Mcg/Cap Inhaler IH 10/04/21 06:59 1 ea DAILY@0700 [facility] Administration Intake & Output (Last 24 hours) 09/04/21 09/05/21 09/06/21 09/07/21 11:59 11:59 11:59 11:59 Intake Total 2150 2430 2300 480 Output Total 2075 750 2625 Balance 75 1680 -325 480 Weight 83.2 kg 83.2 kg Microbiology Results (Last 24 hours) 09/03/21 14:16 Clean Catch Midstream Urine Culture - Final <10K NORMAL SKIN ADALI PROBABLE SKIN CONTAMINANT Laboratory Results (Last 24 hours) 09/06/21 09/06/21 09/06/21 11:46 07:43 05:00 WBC RBC Hgb Hct MCV MCH MCHC RDW Plt Count MPV D-Dimer Sodium 139 Potassium 3.5 Chloride 98 Carbon Dioxide 32 H Anion Gap 11.9 BUN 16 Creatinine 0.65 L Estimated GFR > 60.0 Glucose 184 H POC Glucometer 208 H 450 H Calcium 9.1 Urine Color Urine Appearance Urine pH Ur Specific [place] Urine Protein Urine Ketones Urine Blood Urine Nitrite Urine Bilirubin Urine Urobilinogen Ur Leukocyte Esterase Urine WBC (Auto) Urine RBC (Auto) U Epithel Cells (Auto) Urine Bacteria (Auto) Urine Culture Reflexed Urine Glucose 09/06/21 09/06/21 09/05/21 04:45 04:45 21:07 WBC 13.8 H RBC 4.28 Hgb 12.5 Hct 39.7 L MCV 92.8 MCH 29.2 MCHC 31.5 L RDW 15.4 H Plt Count 163 MPV 10.6 D-Dimer 230 Sodium Potassium Chloride Carbon Dioxide Anion Gap BUN Creatinine Estimated GFR Glucose POC Glucometer 407 H Calcium Urine Color Urine Appearance Urine pH Ur Specific [place] Urine Protein Urine Ketones Urine Blood Urine Nitrite Urine Bilirubin Urine Urobilinogen Ur Leukocyte Esterase Urine WBC (Auto) Urine RBC (Auto) U Epithel Cells (Auto) Urine Bacteria (Auto) Urine Culture Reflexed Urine Glucose 09/05/21 09/05/21 16:12 10:00 WBC RBC Hgb Hct MCV MCH MCHC RDW Plt Count MPV D-Dimer Sodium Potassium Chloride Carbon Dioxide Anion Gap BUN Creatinine Estimated GFR Glucose POC Glucometer 331 H Calcium Urine Color YELLOW Urine Appearance CLEAR Urine pH 6.0 Ur Specific [place] 1.018 Urine Protein NEGATIVE Urine Ketones TRACE Urine Blood NEGATIVE Urine Nitrite NEGATIVE Urine Bilirubin NEGATIVE Urine Urobilinogen NEGATIVE Ur Leukocyte Esterase NEGATIVE Urine WBC (Auto) 3-5 Urine RBC (Auto) NONE U Epithel Cells (Auto) NONE Urine Bacteria (Auto) NONE Urine Culture Reflexed NO Urine Glucose >=500 Orders (Last 24 hours) Category Date Time Status Discharge Routine Discharge 09/06/21 Ordered BMP Routine Lab 09/06/21 05:00 Completed CBC DAILY Lab 09/06/21 04:45 Completed D-DIMER QUANTITATIVE DAILY Lab 09/06/21 04:45 Completed POCT GLUCOSE Stat Lab 09/05/21 16:12 Completed POCT GLUCOSE Stat Lab 09/05/21 21:07 Completed POCT GLUCOSE Stat Lab 09/06/21 07:43 Completed POCT GLUCOSE Stat Lab 09/06/21 11:46 Completed Azithromycin 250 mg [Zithromax 250 MG TABLET] Med 09/06/21 10:00 Discontinued 250 mg PO DAILY Patient Care Notes (Last 24 hours) 09/06/21 12:34 Case Management Note by Nadege Brand REVIEWED CHART- NO NEW NEEDS REGARDING DC AT THIS TIME. PATIENT ALREADY SET UP WITH 2L/NC AT HS AT HOME Initialized on 09/06/21 12:34 - END OF NOTE - Vitals & Intake/Output Vital Signs: Vital Signs Temperature 98.3 F 09/06/21 12:00 Pulse Rate 86 09/06/21 12:00 Respiratory Rate 17 09/06/21 11:42 Blood Pressure 122/71 09/06/21 12:00 O2 Sat by Pulse Oximetry 93 L 09/06/21 12:00 Intake & Output: Intake & Output 09/04/21 09/05/21 09/06/21 09/07/21 11:59 11:59 11:59 11:59 Intake Total 2150 2430 2300 480 Output Total 2074 581 2625 Balance 75 1680 -325 480 Weight 83.2 kg 83.2 kg - Lab Result Diagrams: 09/06/21 04:45 09/06/21 05:00 Lab Results-Last 24 Hrs: Lab Results-Last 24 Hours 09/05/21 09/05/21 09/05/21 Range/Units 10:00 16:12 21:07 WBC (4.0-10.5) K/mm3 RBC (4.1-5.6) M/mm3 Hgb (12.5-18.0) gm/dl Hct (42-50) % MCV (78-100) fl MCH (26-32) pg MCHC (32-36) g/dl RDW (11.5-14.0) % Plt Count (150-450) K/mm3 MPV (7.5-11.0) fl D-Dimer (215-500) ng/mL Sodium (137-145) mmol/L Potassium (3.5-5.1) mmol/L Chloride (98-107) mmol/L Carbon Dioxide (22-30) mmol/L Anion Gap (5-15) MEQ/L BUN (9-20) mg/dL Creatinine (0.66-1.25) mg/dL Estimated GFR ML/MIN Glucose (74-106) mg/dL POC Glucometer 331 H 407 H (74 to 106) mg/dL Calcium (8.4-10.2) mg/dL Urine Color YELLOW (YELLOW) Urine Appearance CLEAR (CLEAR) Urine pH 6.0 (5-6) Ur Specific [place] 1.018 (1.005-1.025) Urine Protein NEGATIVE (Negative) Urine Ketones TRACE (NEGATIVE) Urine Blood NEGATIVE (0-5) Perez/ul Urine Nitrite NEGATIVE (NEGATIVE) Urine Bilirubin NEGATIVE (NEGATIVE) Urine Urobilinogen NEGATIVE (0-1) mg/dL Ur Leukocyte Esterase NEGATIVE (NEGATIVE) Urine WBC (Auto) 3-5 (0-5) /HPF Urine RBC (Auto) NONE (0-2) /HPF U Epithel Cells (Auto) NONE (FEW) /HPF Urine Bacteria (Auto) NONE (NEGATIVE) /HPF Urine Culture Reflexed NO (NO) Urine Glucose >=500 (NEGATIVE) mg/dL 09/06/21 09/06/21 09/06/21 Range/Units 04:45 04:45 05:00 WBC 13.8 H (4.0-10.5) K/mm3 RBC 4.28 (4.1-5.6) M/mm3 Hgb 12.5 (12.5-18.0) gm/dl Hct 39.7 L (42-50) % MCV 92.8 (78-100) fl MCH 29.2 (26-32) pg MCHC 31.5 L (32-36) g/dl RDW 15.4 H (11.5-14.0) % Plt Count 163 (150-450) K/mm3 MPV 10.6 (7.5-11.0) fl D-Dimer 230 (215-500) ng/mL Sodium 139 (137-145) mmol/L Potassium 3.5 (3.5-5.1) mmol/L Chloride 98 (98-107) mmol/L Carbon Dioxide 32 H (22-30) mmol/L Anion Gap 11.9 (5-15) MEQ/L BUN 16 (9-20) mg/dL Creatinine 0.65 L (0.66-1.25) mg/dL Estimated GFR > 60.0 ML/MIN Glucose 184 H (74-106) mg/dL POC Glucometer (74 to 106) mg/dL Calcium 9.1 (8.4-10.2) mg/dL Urine Color (YELLOW) Urine Appearance (CLEAR) Urine pH (5-6) Ur Specific [place] (1.005-1.025) Urine Protein (Negative) Urine Ketones (NEGATIVE) Urine Blood (0-5) Perez/ul Urine Nitrite (NEGATIVE) Urine Bilirubin (NEGATIVE) Urine Urobilinogen (0-1) mg/dL Ur Leukocyte Esterase (NEGATIVE) Urine WBC (Auto) (0-5) /HPF Urine RBC (Auto) (0-2) /HPF U Epithel Cells (Auto) (FEW) /HPF Urine Bacteria (Auto) (NEGATIVE) /HPF Urine Culture Reflexed (NO) Urine Glucose (NEGATIVE) mg/dL 09/06/21 09/06/21 Range/Units 07:43 11:46 WBC (4.0-10.5) K/mm3 RBC (4.1-5.6) M/mm3 Hgb (12.5-18.0) gm/dl Hct (42-50) % MCV (78-100) fl MCH (26-32) pg MCHC (32-36) g/dl RDW (11.5-14.0) % Plt Count (150-450) K/mm3 MPV (7.5-11.0) fl D-Dimer (215-500) ng/mL Sodium (137-145) mmol/L Potassium (3.5-5.1) mmol/L Chloride (98-107) mmol/L Carbon Dioxide (22-30) mmol/L Anion Gap (5-15) MEQ/L BUN (9-20) mg/dL Creatinine (0.66-1.25) mg/dL Estimated GFR ML/MIN Glucose (74-106) mg/dL POC Glucometer 450 H 208 H (74 to 106) mg/dL Calcium (8.4-10.2) mg/dL Urine Color (YELLOW) Urine Appearance (CLEAR) Urine pH (5-6) Ur Specific [place] (1.005-1.025) Urine Protein (Negative) Urine Ketones (NEGATIVE) Urine Blood (0-5) Perez/ul Urine Nitrite (NEGATIVE) Urine Bilirubin (NEGATIVE) Urine Urobilinogen (0-1) mg/dL Ur Leukocyte Esterase (NEGATIVE) Urine WBC (Auto) (0-5) /HPF Urine RBC (Auto) (0-2) /HPF U Epithel Cells (Auto) (FEW) /HPF Urine Bacteria (Auto) (NEGATIVE) /HPF Urine Culture Reflexed (NO) Urine Glucose (NEGATIVE) mg/dL Micro Results-Entire Visit: Microbiology 09/03/21 14:16 Urine Culture - Final Clean Catch Midstream <10K NORMAL SKIN ADALI PROBABLE SKIN CONTAMINANT 09/03/21 09:50 Blood Culture - Preliminary Blood NO GROWTH TO DATE 09/03/21 09:45 Blood Culture - Preliminary Blood NO GROWTH TO DATE Accuchecks Date 09/05/21 Date 09/05/21 Time 21:30 Time 16:22 - Radiology Exams Ordered Rad Exams-Entire Visit: Radiology Procedures Category Date Time Status CHEST 1 VIEW (PORTABLE) Routine Exams 09/05/21 10:00 Completed - Procedures and Test Procedures and Tests throughout Hospitalization: Therapy Orders & Screens 09/03/21 13:29 Respiratory Therapy Assessment DAILY Comment: 09/03/21 15:55 Respiratory Therapy Consult DAILY Comment: Reason For Exam: 09/03/21 16:09 RT Miscellaneous Order ROUTINE Comment: Physician Instructions: Reason For Exam: RT COVID 19 PROTOCOLS 09/03/21 17:36 Oxygen NASAL CANNULA 2 lpm Comment: 09/03/21 18:03 OT Screen per Nursing Assess ONCE Comment: Protocol Order Physician Instructions: Greater than 3 points order OT Admission Screening Reason For Exam: Triggered on Admission Diagnosis: hypoxia; COVID-19; SOB Open Wound/Cellutlitis/Pressure Ulcers: No Acute Fx/ORIF/Change in wt bearing status: No Severe MUSCULOSKELETAL pain: No ADL Dysfunction: Yes Acute CVA w/Hemiparesis/Hemiplegia: No Decreased Functional Mobility/Strength: Yes Sprain/Strain: No Acute Post-op Mobility Dysfunction: No Total Points: 4 PT Screen per Nursing Assess ONCE Comment: Protocol Order Physician Instructions: Greater than 3 points order PT Admission Screenin Reason For Exam: Triggered on Admission Diagnosis: hypoxia; COVID-19; SOB Open Wound/Cellutlitis/Pressure Ulcers: No Acute Fx/ORIF/Change in wt bearing status: No Severe MUSCULOSKELETAL pain: No ADL Dysfunction: Yes Acute CVA w/Hemiparesis/Hemiplegia: No Decreased Functional Mobility/Strength: Yes Sprain/Strain: No Acute Post-op Mobility Dysfunction: No Total Points: 4 RT Screen per Nursing Assess ONCE Comment: Protocol Order Physician Instructions: Greater than 3 points order RT Admission Screen Reason For Exam: Triggered on Admission Diagnosis: hypoxia; COVID-19; SOB Diagnosis: hypoxia; COVID-19; SOB Pneumonia: No Home O2: Yes Asthma: Yes CHF: No Home CPAP/BIPAP: No Home Nebs/MDI: Yes Total Points: 14 ST Screen per Nursing Assess ONCE Comment: Protocol Order Physician Instructions: Greater than [address] Admission Screening Reason For Exam: Triggered on Admission Diagnosis: hypoxia; COVID-19; SOB CVA/Dyshpagia/Aphasia: Yes Cognitive Deficits: No Dehydration/Nutrition Deficit: No Reflux: No Oral-Motor Difficulties: Yes Pneumonia: No Retirement Resident: No Total Points: 8 09/03/21 19:00 Respiratory MDI BID Comment: WIXELLA BID Diagnosis: hypoxia; COVID-19; SOB 09/04/21 23:57 EKG ROUTINE Comment: Diagnosis: hypoxia; COVID-19; SOB Discharge Exam General Appearance: no apparent distress, alert Neurologic Exam: alert, oriented x 3, cooperative, normal mood/affect, nml cerebellar function, sensation nml, No motor deficits Eye Exam: PERRL, EOMI, eyes nml inspection Ears, Nose, Throat Exam: normal ENT inspection, pharynx normal, moist mucous membranes Neck Exam: normal inspection, non-tender, supple, full range of motion Respiratory Exam: normal breath sounds, lungs clear, No respiratory distress Cardiovascular Exam: regular rate/rhythm, normal heart sounds Gastrointestinal/Abdomen Exam: soft, No tenderness, No mass Male Genitalia Exam: deferred Rectal Exam: deferred Back Exam: normal inspection, normal range of motion, No CVA tenderness, No vertebral tenderness Extremity Exam: normal inspection, normal range of motion Skin Exam: normal color, warm, dry Final Diagnosis/Problem List - Final Discharge Diagnosis/Problem (1) COVID-19 in immunocompromised patient Status: Resolved Code(s): U07.1 - COVID-19; D84.9 - IMMUNODEFICIENCY, UNSPECIFIED (2) Generalized weakness Status: Resolved Code(s): R53.1 - WEAKNESS (3) Hypoxia Status: Resolved Code(s): R09.02 - HYPOXEMIA - Discharge Discharge Date: 09/06/21 Disposition: Home, Self-Care Condition: Stable Prescriptions: New Cephalexin Mh 500 mg [Keflex 500 mg] 500 mg PO Q6H #28 cap Continue Omeprazole 40 mg PO BID Fluticasone/Salmeterol [Advair 250-50 Diskus] 1 puff IH BID Tiotropium [place] Inhaler [Spiriva 18 Mcg/Cap Inhaler] 18 mcg IH DAILY Primidone 50 MG [Mysoline 50Mg] 100 mg PO TID Tamsulosin HCl 0.4 mg [Flomax 0.4 MG] 2 cap PO DAILY Duloxetine HCl [Cymbalta] 60 mg PO BID Divalproex Sodium [Depakote] 1,000 mg PO BID Multivitamin [Multivitamins] 1 each PO DAILY Albuterol Sulfate [Proair Hfa] 2 puff IH Q4H PRN PRN PRN Reason: Shortness Of Breath/Wheezing Loratadine 10 mg PO DAILY Atorvastatin Calcium 40 mg PO HS Ascorbic Acid [Fruit C-500] 500 mg PO DAILY Maltodextrin/Xanthan Gum [Thicken Up Clear Powder Packet] 1 packet PO ACHS Insulin Glargine [Lantus Insulin] 40 unit SQ QAM EPINEPHrine [Epipen 2-Jeffery] 0.3 mg IM UD PRN PRN Reason: allergic reaction Empagliflozin [Jardiance] 10 mg PO DAILY Aspirin 81 mg PO DAILY Ipratropium/Albuterol Sulfate [Iprat-Albut 0.5-3(2.5) mg/3 ml] 3 ml IH QID Gabapentin 300 mg [Neurontin 300 mg] 300 mg PO TID capsule Oxybutynin Chloride [Oxybutynin Chloride ER] 10 mg PO DAILY Acetaminophen 500 mg [Tylenol Extra Strength 500 mg] 500 mg PO TIDPRN PRN PRN Reason: Pain Polyethylene Glycol 3350 17 gm [Miralax Powder 17GM PACKET] 17 gm PO DAILY Levomefolate Calcium [l-Methylfolate Calcium] 1 each PO BID Docusate Sodium 100 mg [Colace 100 MG] 100 mg PO BID Calcium Carbonate/Vitamin D3 [Calcium 600-Vit D3 400 Caplet] 1 each PO TID Fexofenadine HCl [Jing Allergy] 180 mg PO DAILY Albuterol Sulfate 0.63 mg IH TID Acarbose [Precose] 50 mg PO TID Mv-Mn/Iron/Folic Acid/Herb 190 [Vitamin D3 Complete Caplet] 25 mcg PO DAILY Instructions: Coronavirus Disease 2019 (COVID-19) (DC) Additional Instructions: YOU WILL NEED TO REMAIN QUARANTINED UNTIL THE . Follow up with: FELISHA NAVAS MD [Primary Care Provider] - 09/19/21 9:15 am
== END 2021-09-06 13:28 | disposition home or self-care (01) | DRG 177 ==
LOC: ED 09:22 → MED SURG 15:53 → OBSVTOIN 09-05 00:03
PROVIDERS: ADMIT Family Medicine; ATTEND Family Medicine
DX: U07.1 COVID-19 (principal); J12.82 Pneumonia due to coronavirus disease 2019; D84.9 Immunodeficiency, unspecified; R53.1 Weakness; R09.02 Hypoxemia; I10 Essential (primary) hypertension; E11.9 Type 2 diabetes mellitus without complications; W18.30XA Fall on same level, unspecified, initial encounter; K59.00 Constipation, unspecified; Z79.899 Other long term (current) drug therapy; Z20.828 Contact with and (suspected) exposure to other viral communicable diseases; Z79.01 Long term (current) use of anticoagulants
CPT/HCPCS: 0241U; 36000; 36415; 70450; 71045; 72125; 80048; 80053; 81001; 82947; 83605; 84484; 85025; 85027; 85379; 87040; 87086; 93005; 93041; 93268; 94640; 94760; 94762; 96372; 96374; 99285; G0378; J0248; J0696; J1100; J1650; J1817; J2930; A9270-GY

== ENCOUNTER 2021-10-27 09:15 | Inpatient (IN) | payer MEDICARE ==
[2021-10-27] MEDS ORDERED: DUONEB 0.5-3 MG/3 ml Neb IH ONE ×2 (09:26→09:36)
[2021-10-27 09:46] LABS: Hematocrit 43.1 % (42-50); Hemoglobin 13.5 gm/dl (12.5-18.0); Mean Cell Volume 93.1 fl (78-100); Mean Corpuscular Hemoglobin 29.2 pg (26-32); Mean Corpuscular Hgb Concent. 31.3 g/dl (32-36); Mean Platelet Volume 10.6 fl (7.5-11.0); Platelet Count 175 K/mm3 (150-450); Red Blood Count 4.63 M/mm3 (4.1-5.6); Red Cell Distribution Width 15.1 % (11.5-14.0); White Blood Count 21.1 K/mm3 (4.0-10.5)
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
[2021-10-27 09:52] LABS: INR 1.06 (0.8-3.0); PROTIME 12.5 SECONDS (9.4-12.5)
[2021-10-27 09:55] LABS: PTT 34.2 SECONDS (25.1-36.5)
[2021-10-27 10:11] LABS: ALBUMIN 4.3 g/dL (3.5-5.0); ALKALINE PHOSPHATASE 43 U/L (38-126); ANION GAP 11.7 MEQ/L (5-15); BLOOD UREA NITROGEN 17 mg/dL (9-20); CHLORIDE 104 mmol/L (98-107); Calcium 9.6 mg/dL (8.4-10.2); Carbon Dioxide 30 mmol/L (22-30); EST GLOMERULAR FILTRATION RATE > 60.0 ML/MIN; Glucose 139 mg/dL (74-106); NT PRO BNP 95.8 pg/mL (0-900); Potassium 4.2 mmol/L (3.5-5.1); SGOT/AST 31 U/L (17-59); SGPT/ALT 21 U/L (0-50); SODIUM 141 mmol/L (137-145); Total Protein 7.3 g/dL (6.3-8.2)
[2021-10-27 10:13] LABS: INFLUENZA A NEGATIVE (NEGATIVE); INFLUENZA B NEGATIVE (NEGATIVE); RESPIRATORY SYNCTIAL VIRUS NEGATIVE (Negative); SARS-CoV-2 Xpert Express NEGATIVE (NEGATIVE)
[2021-10-27 10:56] LABS: Appearance CLEAR (CLEAR); Bilirubin NEGATIVE (NEGATIVE); Dipstick done @ ? MAIN LAB; Glucose >=1000 mg/dL (NEGATIVE); Ketones NEGATIVE (NEGATIVE); Nitrite NEGATIVE (NEGATIVE); Ph 7.5 (5-6); Protein,Urine Dip NEGATIVE (Negative); RBC NEGATIVE Ery/ul (0-5); Urobilinogen 0.2 mg/dL (0-1)
[2021-10-27 10:58] LABS: Urine Cultured Indicated? NO
[2021-10-27 12:06] LABS: ANISOCYTOSIS 1+; ATYPICAL LYMPHS 2 %; BAND 4 % (0.0-2.0); Eosinophil 1 % (0.00-3.0); Lymphocytes 29 % (24-44); Monocyte 2 % (0.0-12.0); Nucleated Red Blood Cell 1 %; Platelet Estimate NORMAL (NORMAL); Total Cells Counted 100; Toxic Granulation 1+
[2021-10-27] MEDS ORDERED: PIPERACILLIN/TAZOBACTAM 3.375 GM in Sodium Chloride 100ML MINI-BAG PLUS 100 ML IV ONE (12:27)
[2021-10-27] MEDS ORDERED: Sodium Chloride 100ML MINI-BAG PLUS 100 ML IV ONE (12:30)
[2021-10-27] MEDS ORDERED: PIPERACILLIN/TAZOBACTAM IV ONE (12:30)
[2021-10-27] MEDS ORDERED: Zofran 4 MG/2 ML VIAL IV PRN (12:36)
[2021-10-27] MEDS ORDERED: DUONEB 0.5-3 MG/3 ml Neb IH SCH (13:00)
[2021-10-27] MEDS ORDERED: PROVENTIL 2.5 MG/3 ML NEB IH ONE (14:40)
[2021-10-27] MEDS ORDERED: Spiriva 18 Mcg/Cap Inhaler IH ONE (14:41)
[2021-10-27] MEDS: PROVENTIL 2.5 MG/3 ML NEB IH SCH ×2 (14:43→19:36)
[2021-10-27] MEDS: Sodium Chloride 0.9% 1000 ML 1,000 ML IV SCH (15:00)
[2021-10-27] MEDS: PROTONIX 40 MG IV IV SCH (15:03)
[2021-10-27] MEDS: HUMALOG SQ PRN (17:17)
[2021-10-27] MEDS: PIPERACILLIN/TAZOBACTAM 3.375 GM in Sodium Chloride 100ML MINI-BAG PLUS 100 ML IV SCH ×2 (17:17→23:10)
--- NOTE | 2021-10-27 20:37 | PCM.HP ---
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 Serum Total Protein 7.3 Albumin 4.3 Urinalys Dipstick Clnc Urine Color Urine Appearance Urine pH Ur Specific [place] Urine Protein POC Urine Protein Conf Urine Ketones Urine Blood Urine Nitrite Urine Bilirubin Urine Urobilinogen Ur Leukocyte Esterase Urine Leukocytes Urine WBC (Auto) Urine RBC (Auto) U Epithel Cells (Auto) Urine Bacteria (Auto) Urine RBC U Non-Squamous Epi Cells Ur Culture Indicated? Urine Culture Reflexed Urine Glucose Influenza Type A Ag Influenza Type B Ag RSV (PCR) SARS-CoV-2 (PCR) 10/27/21 09:26 WBC RBC Hgb Hct MCV MCH MCHC RDW Plt Count MPV Segmented Neutrophils Band Neutrophils Lymphocytes (Manual) Monocytes (Manual) Eosinophils (Manual) Nucleated RBCs Atypical Lymphocytes Toxic Granulation Platelet Estimate RBC Morphology Anisocytosis PT INR APTT Sodium Potassium Chloride Carbon Dioxide Anion Gap BUN Creatinine Estimated GFR Glucose POC Glucometer Lactic Acid Calcium Total Bilirubin AST ALT Alkaline Phosphatase Troponin I NT-Pro-B Natriuret Pep Serum Total Protein Albumin Urinalys Dipstick Clnc Urine Color Urine Appearance Urine pH Ur Specific [place] Urine Protein POC Urine Protein Conf Urine Ketones Urine Blood Urine Nitrite Urine Bilirubin Urine Urobilinogen Ur Leukocyte Esterase Urine Leukocytes Urine WBC (Auto) Urine RBC (Auto) U Epithel Cells (Auto) Urine Bacteria (Auto) Urine RBC U Non-Squamous Epi Cells Ur Culture Indicated? Urine Culture Reflexed Urine Glucose Influenza Type A Ag NEGATIVE Influenza Type B Ag NEGATIVE RSV (PCR) NEGATIVE SARS-CoV-2 (PCR) NEGATIVE Orders (Last 24 hours) Category Date Time Status EKG-ER Only STAT Care 10/27/21 09:18 Completed IV Care Q6H Care 10/27/21 12:31 Active POCT Glucose Check ACHS Care 10/27/21 15:[address] in Observation ROUTINE Care 10/27/21 12:31 Active Vital Signs Q4H Care 10/27/21 12:31 Active Heart-Healthy Diet Diet 10/27/21 Dinner Active CHEST 1 VIEW (PORTABLE) Stat Exams 10/27/21 09:18 Taken CHEST WITH CONTRAST [CT] Stat Exams 10/27/21 10:34 Taken BLOOD CULTURE Stat Lab 10/27/21 12:30 Received CBC W DIFF Stat Lab 10/27/21 09:38 Completed CMP Stat Lab 10/27/21 09:38 Completed Lactic Acid Stat Lab 10/27/21 09:38 Completed Manual Differential NC Stat Lab 10/27/21 09:38 Completed NT PRO BNP Stat Lab 10/27/21 09:38 Completed POCT GLUCOSE Stat Lab 10/27/21 16:01 Completed PROTIME WITH INR Stat Lab 10/27/21 09:38 Completed PTT Stat Lab 10/27/21 09:38 Completed TROPONIN Q3H Lab 10/27/21 09:38 Completed TROPONIN Q3H Lab 10/27/21 12:30 Completed TROPONIN Q3H Lab 10/27/21 15:40 Completed Albuterol 2.5 mg/3 ml Neb [Proventil 2.5 mg/3 ml Neb Med 10/27/21 14:40 Discontinued ] 2.5 mg IH .STK-MED ONE Albuterol 2.5 mg/3 ml Neb [Proventil 2.5 mg/3 ml Neb Med 10/27/21 19:00 Active ] 2.5 mg IH TIDRT Albuterol/Ipratropium 3ml Neb* [DUONEB 0.5-3 MG/3 ml Med 10/27/21 09:36 Discontinued Neb] 3 ml IH .STK-MED ONE Albuterol/Ipratropium 3ml Neb* [DUONEB 0.5-3 MG/3 ml Med 10/27/21 13:00 Discontinued Neb] 3 ml IH Q6HRT Albuterol/Ipratropium 3ml Neb* [DUONEB 0.5-3 MG/3 ml Med 10/27/21 09:26 Discontinued Neb] 3 ml IH STAT ONE Atorvastatin Calcium [Lipitor 40Mg] Med 10/27/21 22:00 Once 40 mg PO ONCE ONE Azithromycin 500 mg/250 ml [Zithromax 500 MG/ 250 ML Med 10/28/21 10:00 Active NaCl Premix] 500 mg in 250 ml IV Q24H10 Divalproex Sodium 250 mg [Divalproex DR 250 mg Tab] Med 10/27/21 22:00 Once 1,000 mg PO ONCE ONE Docusate Sodium 100 mg [Colace 100 MG] Med 10/27/21 22:00 Once 100 mg PO ONCE ONE Duloxetine HCl 30 mg [Cymbalta 30 MG Capsule] Med 10/27/21 22:00 Once 60 mg PO ONCE ONE Enoxaparin Sodium [Enoxaparin Sodium] Med 10/28/21 10:00 Active 40 mg SQ DAILY Gabapentin 300 mg [Neurontin 300 mg] Med 10/27/21 22:00 Once 300 mg PO ONCE ONE Guaifenesin 600 mg ER [Mucinex 600MG ER Tabs] Med 10/27/21 22:00 Once 600 mg PO ONCE ONE Insulin Lispro [Humalog] Med 10/27/21 17:00 Ordered See Dose Instructions SQ UD PRN Mirabegron [Myrbetriq] Med 10/27/21 22:00 Once 50 mg PO ONCE ONE NaCl 0.9% 100 ml Mini-Bag Plus [Sodium Chloride 100ML Med 10/27/21 12:30 Discontinued MINI-BAG PLUS] 100 ml IV UD NaCl 0.9% 1000 ml [Sodium Chloride 0.9% 1000 ML] 1,000 Med 10/27/21 12:45 Active ml IV 100 mls/hr Non-Formulary Drug [Non-Formulary Bulk Item] Med 10/27/21 22:00 Once 1 each PO ONCE ONE Ondansetron HCl 4 mg/2 ml [Zofran 4 MG/2 ML VIAL] Med 10/27/21 12:36 Active 4 mg IV Q6H PRN PRN PANTOPRAZOLE 40 mg Tablet [Protonix 40MG Tablet] Med 10/27/21 22:00 Once 40 mg PO ONCE ONE Pantoprazole 40 mg [Protonix 40 mg IV] Med 10/27/21 12:45 Active 40 mg IV Q24H Piperacillin/Tazobactam 3.375G [Piperacillin/Tazobactam Med 10/27/21 12:30 Discontinued ] 3.375 gm IV .STK-MED ONE Piperacillin/Tazobactam 3.375G [Piperacillin/Tazobactam Med 10/27/21 18:00 Active ] 3.375 gm NaCl 0.9% 100 ml Mini-Bag Plus [Sodium Chloride 100ML MINI-BAG PLUS] 100 ml IV Q6HT Piperacillin/Tazobactam 3.375G [Piperacillin/Tazobactam Med 10/27/21 12:27 Discontinued ] 3.375 gm NaCl 0.9% 100 ml Mini-Bag Plus [Sodium Chloride 100ML MINI-BAG PLUS] 100 ml IV STAT Primidone 50 MG [Mysoline 50Mg] Med 10/27/21 22:00 Once 50 mg PO ONCE ONE Theophylline Anhydrous [Theophylline ER 24Hr] Med 10/27/21 22:00 Once 300 mg PO ONCE ONE Tiotropium [place] Inhaler [Spiriva 18 Mcg/Cap Med 10/27/21 14:41 Discontinued Inhaler] 1 ea IH .STK-MED ONE Tiotropium [place] Inhaler [Spiriva 18 Mcg/Cap Med 10/28/21 10:00 Active Inhaler] 1 ea IH DAILY Oxygen Nasal Cannula 3 lpm RT 10/27/21 14:48 Active Pulse Oximetry .spot check RT 10/27/21 14:47 Active Respiratory Therapy Assessment DAILY RT 10/27/21 09:40 Completed Respiratory Therapy Assessment DAILY RT 10/27/21 14:47 Active Transfer Order Routine Transfer 10/27/21 Completed Code(s): J18.9 - PNEUMONIA, UNSPECIFIED ORGANISM (2) COPD with exacerbation Current Visit: No Status: Acute Code(s): J44.1 - CHRONIC OBSTRUCTIVE PULMON DANNY DISEASE W (ACUTE) EXACERBATION
--- NOTE | 2021-10-27 20:42 | XRAY ---
Indication: Cough. Pneumonia. Pulmonary embolus. Multiple contiguous axial images obtained through the chest using 100 cc Isovue 370 contrast and PE protocol. Comparison: October 03, 2020. There is good opacification of the pulmonary arteries to include the lobar and segmental branches. No pulmonary embolus. Heart not enlarged. Aorta is normal in course and caliber. No pathologic mediastinal/hilar lymphadenopathy. Lungs demonstrates new minimal patchy right upper and left lower lobe groundglass air space disease. Also mild/moderate bilateral mid-to lower lung subsegmental atelectasis/scarring. No consolidation or effusion. Bony thorax intact again with mild degenerative changes throughout the spine. Limited upper abdomen demonstrates mild fatty liver and 13.5 cm splenomegaly. Impression: 1. Negative pulmonary embolus. 2. New right upper and left lower lobe patchy groundglass airspace disease. 3. Bilateral subsegmental atelectasis/scarring. 4. Fatty liver and splenomegaly. Comment: Preliminary interpretation made by [facility]. No critical discrepancy.
--- NOTE | 2021-10-27 20:42 | XRAY ---
Indication: Cough. Comparison: September 05, 2021. Portable apical lordotic chest again demonstrates bibasilar subsegmental atelectasis/scarring. Remaining heart and upper lungs unremarkable. No new/acute findings.
[2021-10-27] MEDS ORDERED: Docusate Sodium 100 MG PO ONE (22:00)
[2021-10-27] MEDS ORDERED: LIPITOR 40MG PO ONE (22:00)
[2021-10-27] MEDS ORDERED: ZOCOR 20MG PO ONE (22:00)
[2021-10-27] MEDS ORDERED: Cymbalta 30 MG Capsule PO ONE (22:00)
[2021-10-27] MEDS ORDERED: NEURONTIN 300 MG PO ONE (22:00)
[2021-10-27] MEDS ORDERED: THEOPHYLLINE ER 24HR PO ONE (22:00)
[2021-10-27] MEDS ORDERED: Mucinex 600MG ER Tabs PO ONE (22:00)
[2021-10-27] MEDS ORDERED: NON-FORMULARY BULK ITEM PO ONE (22:00)
[2021-10-27] MEDS ORDERED: MYSOLINE 50MG PO ONE (22:00)
[2021-10-27] MEDS ORDERED: MYRBETRIQ PO ONE (22:00)
[2021-10-27] MEDS ORDERED: Protonix 40MG Tablet PO ONE (22:00)
[2021-10-28] MEDS: Sodium Chloride 0.9% 1000 ML 1,000 ML IV SCH ×3 (00:22→11:42)
[2021-10-28] MEDS: PIPERACILLIN/TAZOBACTAM 3.375 GM in Sodium Chloride 100ML MINI-BAG PLUS 100 ML IV SCH ×4 (05:05→23:15)
[2021-10-28] MEDS: PROVENTIL 2.5 MG/3 ML NEB IH SCH ×3 (07:29→18:44)
[2021-10-28] MEDS: Spiriva 18 Mcg/Cap Inhaler IH SCH ×3 (07:30→13:24)
--- NOTE | 2021-10-28 08:30 | PCM.NOTE ---
Date and Time: 10/28/21827 Subjective Assessment: Doing better - Review of Systems Constitutional: No Fever, No Chills Eyes: No Symptoms Ears, Nose, & Throat: No Symptoms Respiratory: Cough, Orthopnea, Short Of Breath, Wheezing Cardiac: No Chest Pain, No Edema, No Syncope Abdominal/Gastrointestinal: No Abdominal Pain, No Nausea, No Vomiting, No Diarrhea Genitourinary Symptoms: No Dysuria Musculoskeletal: No Back Pain, No Neck Pain Skin: No Rash Neurological: No Dizziness, No Focal Weakness, No Sensory Changes Psychological: No Symptoms Endocrine: No Symptoms Hematologic/Lymphatic: No Symptoms Immunological/Allergic: No Symptoms Objective Exam General Appearance: no apparent distress, alert Neurologic Exam: alert, oriented x 3, cooperative, normal mood/affect, nml cerebellar function, sensation nml, No motor deficits Skin Exam: normal color, warm, dry Eye Exam: PERRL, EOMI, eyes nml inspection Ears, Nose, Throat Exam: normal ENT inspection, pharynx normal, moist mucous membranes Neck Exam: normal inspection, non-tender, supple, full range of motion Respiratory Exam: diminished breath sounds, wheezing, No respiratory distress Cardiovascular Exam: regular rate/rhythm, normal heart sounds Gastrointestinal/Abdomen Exam: soft, No tenderness, No mass Extremity Exam: normal inspection, normal range of motion Back Exam: normal inspection, normal range of motion, No CVA tenderness, No vertebral tenderness Male Genitalia Exam: deferred Rectal Exam: deferred OBJECTIVE DATA Vital Signs: Vital Signs - 24 hr Temp Pulse Resp BP Pulse Ox 10/28/21 08:00 98.4 F 80 22 145/73 92 L 10/28/21 07:31 89 18 93 L 10/28/21 04:00 98.0 F 79 25 H 114/55 94 L 10/28/21 00:00 97.7 F 88 20 124/58 95 10/27/21 20:00 96.9 F 94 H 16 125/64 95 10/27/21 19:36 92 H 16 95 10/27/21 16:00 98.9 F 97 H 21 138/65 93 L 10/27/21 15:41 95 10/27/21 14:48 92 H 18 96 10/27/21 13:56 98 F 110 H 22 122/77 94 L 10/27/21 13:30 98.0 F 110 H 22 122/77 94 L 10/27/21 12:00 100 H 20 120/73 95 10/27/21 11:03 101 H 18 125/69 95 10/27/21 10:36 102 H 18 118/77 94 L 10/27/21 09:56 104 H 20 95 10/27/21 09:17 98.4 F 101 H 19 124/77 95 Pain Assessment - Last Documented Pain Intensity 4 Intake and Output: Intake & Output 10/25/21 10/26/21 10/27/21 10/28/21 11:59 11:59 11:59 11:59 Intake Total 3399 Output Total 1800 Balance 1599 Weight 83.915 kg 82.2 kg Lab Results: Lab Results-Last 24 Hours 10/27/21 10/27/21 10/27/21 Range/Units 09:26 09:38 09:38 WBC 21.1 H (4.0-10.5) K/mm3 RBC 4.63 (4.1-5.6) M/mm3 Hgb 13.5 (12.5-18.0) gm/dl Hct 43.1 (42-50) % MCV 93.1 (78-100) fl MCH 29.2 (26-32) pg MCHC 31.3 L (32-36) g/dl RDW 15.1 H (11.5-14.0) % Plt Count 175 (150-450) K/mm3 MPV 10.6 (7.5-11.0) fl Segmented Neutrophils 62 (36.-66.) % Band Neutrophils 4 H (0.0-2.0) % Lymphocytes (Manual) 29 (24-44) % Monocytes (Manual) 2 (0.0-12.0) % Eosinophils (Manual) 1 (0.00-3.0) % Nucleated RBCs 1 % Atypical Lymphocytes 2 % Toxic Granulation 1+ Platelet Estimate NORMAL (NORMAL) RBC Morphology ABNORMAL Anisocytosis 1+ PT (9.4-12.5) SECONDS INR (0.8-3.0) APTT (25.1-36.5) SECONDS Sodium (137-145) mmol/L Potassium (3.5-5.1) mmol/L Chloride (98-107) mmol/L Carbon Dioxide (22-30) mmol/L Anion Gap (5-15) MEQ/L BUN (9-20) mg/dL Creatinine (0.66-1.25) mg/dL Estimated GFR ML/MIN Glucose (74-106) mg/dL POC Glucometer (74 to 106) mg/dL Lactic Acid 1.6 (0.4-2.0) Calcium (8.4-10.2) mg/dL Total Bilirubin (0.2-1.3) mg/dL AST (17-59) U/L ALT (0-50) U/L Alkaline Phosphatase (38-126) U/L Troponin I (0.000-0.034) ng/mL NT-Pro-B Natriuret Pep (0-900) pg/mL Serum Total Protein (6.3-8.2) g/dL Albumin (3.5-5.0) g/dL Urinalys Dipstick Clnc Urine Color Urine Appearance Urine pH Ur Specific [place] Urine Protein POC Urine Protein Conf (Negative) Urine Ketones Urine Blood Urine Nitrite Urine Bilirubin Urine Urobilinogen Ur Leukocyte Esterase Urine Leukocytes (NEGATIVE) Urine WBC (Auto) (0-5) /HPF Urine RBC (Auto) (0-2) /HPF U Epithel Cells (Auto) (FEW) /HPF Urine Bacteria (Auto) (NEGATIVE) /HPF Urine RBC (0-5) Perez/ul U Non-Squamous Epi Cells Ur Culture Indicated? Urine Culture Reflexed Urine Glucose (NEGATIVE) mg/dL Influenza Type A Ag NEGATIVE (NEGATIVE) Influenza Type B Ag NEGATIVE (NEGATIVE) RSV (PCR) NEGATIVE (Negative) SARS-CoV-2 (PCR) NEGATIVE (NEGATIVE) 10/27/21 10/27/21 10/27/21 Range/Units 09:38 09:38 09:38 WBC (4.0-10.5) K/mm3 RBC (4.1-5.6) M/mm3 Hgb (12.5-18.0) gm/dl Hct (42-50) % MCV (78-100) fl MCH (26-32) pg MCHC (32-36) g/dl RDW (11.5-14.0) % Plt Count (150-450) K/mm3 MPV (7.5-11.0) fl Segmented Neutrophils (36.-66.) % Band Neutrophils (0.0-2.0) % Lymphocytes (Manual) (24-44) % Monocytes (Manual) (0.0-12.0) % Eosinophils (Manual) (0.00-3.0) % Nucleated RBCs % Atypical Lymphocytes % Toxic Granulation Platelet Estimate (NORMAL) RBC Morphology Anisocytosis PT 12.5 (9.4-12.5) SECONDS INR 1.06 (0.8-3.0) APTT 34.2 (25.1-36.5) SECONDS Sodium 141 (137-145) mmol/L Potassium 4.2 (3.5-5.1) mmol/L Chloride 104 (98-107) mmol/L Carbon Dioxide 30 (22-30) mmol/L Anion Gap 11.7 (5-15) MEQ/L BUN 17 (9-20) mg/dL Creatinine 0.70 (0.66-1.25) mg/dL Estimated GFR > 60.0 ML/MIN Glucose 139 H (74-106) mg/dL POC Glucometer (74 to 106) mg/dL Lactic Acid (0.4-2.0) Calcium 9.6 (8.4-10.2) mg/dL Total Bilirubin 0.40 (0.2-1.3) mg/dL AST 31 (17-59) U/L ALT 21 (0-50) U/L Alkaline Phosphatase 43 (38-126) U/L Troponin I < 0.012 (0.000-0.034) ng/mL NT-Pro-B Natriuret Pep 95.8 (0-900) pg/mL Serum Total Protein 7.3 (6.3-8.2) g/dL Albumin 4.3 (3.5-5.0) g/dL Urinalys Dipstick Clnc Urine Color Urine Appearance Urine pH Ur Specific [place] Urine Protein POC Urine Protein Conf (Negative) Urine Ketones Urine Blood Urine Nitrite Urine Bilirubin Urine Urobilinogen Ur Leukocyte Esterase Urine Leukocytes (NEGATIVE) Urine WBC (Auto) (0-5) /HPF Urine RBC (Auto) (0-2) /HPF U Epithel Cells (Auto) (FEW) /HPF Urine Bacteria (Auto) (NEGATIVE) /HPF Urine RBC (0-5) Perez/ul U Non-Squamous Epi Cells Ur Culture Indicated? Urine Culture Reflexed Urine Glucose (NEGATIVE) mg/dL Influenza Type A Ag (NEGATIVE) Influenza Type B Ag (NEGATIVE) RSV (PCR) (Negative) SARS-CoV-2 (PCR) (NEGATIVE) 10/27/21 10/27/21 10/27/21 Range/Units 10:41 12:30 15:40 WBC (4.0-10.5) K/mm3 RBC (4.1-5.6) M/mm3 Hgb (12.5-18.0) gm/dl Hct (42-50) % MCV (78-100) fl MCH (26-32) pg MCHC (32-36) g/dl RDW (11.5-14.0) % Plt Count (150-450) K/mm3 MPV (7.5-11.0) fl Segmented Neutrophils (36.-66.) % Band Neutrophils (0.0-2.0) % Lymphocytes (Manual) (24-44) % Monocytes (Manual) (0.0-12.0) % Eosinophils (Manual) (0.00-3.0) % Nucleated RBCs % Atypical Lymphocytes % Toxic Granulation Platelet Estimate (NORMAL) RBC Morphology Anisocytosis PT (9.4-12.5) SECONDS INR (0.8-3.0) APTT (25.1-36.5) SECONDS Sodium (137-145) mmol/L Potassium (3.5-5.1) mmol/L Chloride (98-107) mmol/L Carbon Dioxide (22-30) mmol/L Anion Gap (5-15) MEQ/L BUN (9-20) mg/dL Creatinine (0.66-1.25) mg/dL Estimated GFR ML/MIN Glucose (74-106) mg/dL POC Glucometer (74 to 106) mg/dL Lactic Acid (0.4-2.0) Calcium (8.4-10.2) mg/dL Total Bilirubin (0.2-1.3) mg/dL AST (17-59) U/L ALT (0-50) U/L Alkaline Phosphatase (38-126) U/L Troponin I < 0.012 < 0.012 (0.000-0.034) ng/mL NT-Pro-B Natriuret Pep (0-900) pg/mL Serum Total Protein (6.3-8.2) g/dL Albumin (3.5-5.0) g/dL Urinalys Dipstick Clnc MAIN LAB Urine Color Cancelled Urine Appearance Cancelled Urine pH Cancelled Ur Specific [place] Cancelled Urine Protein Cancelled POC Urine Protein Conf NEGATIVE (Negative) Urine Ketones Cancelled Urine Blood Cancelled Urine Nitrite Cancelled Urine Bilirubin Cancelled Urine Urobilinogen Cancelled Ur Leukocyte Esterase Cancelled Urine Leukocytes NEGATIVE (NEGATIVE) Urine WBC (Auto) NONE (0-5) /HPF Urine RBC (Auto) NONE (0-2) /HPF U Epithel Cells (Auto) NONE (FEW) /HPF Urine Bacteria (Auto) NONE (NEGATIVE) /HPF Urine RBC NEGATIVE (0-5) Perez/ul U Non-Squamous Epi Cells Cancelled Ur Culture Indicated? NO Urine Culture Reflexed Cancelled Urine Glucose >=1000 (NEGATIVE) mg/dL Influenza Type A Ag (NEGATIVE) Influenza Type B Ag (NEGATIVE) RSV (PCR) (Negative) SARS-CoV-2 (PCR) (NEGATIVE) 10/27/21 10/28/21 Range/Units 16:01 07:15 WBC (4.0-10.5) K/mm3 RBC (4.1-5.6) M/mm3 Hgb (12.5-18.0) gm/dl Hct (42-50) % MCV (78-100) fl MCH (26-32) pg MCHC (32-36) g/dl RDW (11.5-14.0) % Plt Count (150-450) K/mm3 MPV (7.5-11.0) fl Segmented Neutrophils (36.-66.) % Band Neutrophils (0.0-2.0) % Lymphocytes (Manual) (24-44) % Monocytes (Manual) (0.0-12.0) % Eosinophils (Manual) (0.00-3.0) % Nucleated RBCs % Atypical Lymphocytes % Toxic Granulation Platelet Estimate (NORMAL) RBC Morphology Anisocytosis PT (9.4-12.5) SECONDS INR (0.8-3.0) APTT (25.1-36.5) SECONDS Sodium (137-145) mmol/L Potassium (3.5-5.1) mmol/L Chloride (98-107) mmol/L Carbon Dioxide (22-30) mmol/L Anion Gap (5-15) MEQ/L BUN (9-20) mg/dL Creatinine (0.66-1.25) mg/dL Estimated GFR ML/MIN Glucose (74-106) mg/dL POC Glucometer 226 H 126 H (74 to 106) mg/dL Lactic Acid (0.4-2.0) Calcium (8.4-10.2) mg/dL Total Bilirubin (0.2-1.3) mg/dL AST (17-59) U/L ALT (0-50) U/L Alkaline Phosphatase (38-126) U/L Troponin I (0.000-0.034) ng/mL NT-Pro-B Natriuret Pep (0-900) pg/mL Serum Total Protein (6.3-8.2) g/dL Albumin (3.5-5.0) g/dL Urinalys Dipstick Clnc Urine Color Urine Appearance Urine pH Ur Specific [place] Urine Protein POC Urine Protein Conf (Negative) Urine Ketones Urine Blood Urine Nitrite Urine Bilirubin Urine Urobilinogen Ur Leukocyte Esterase Urine Leukocytes (NEGATIVE) Urine WBC (Auto) (0-5) /HPF Urine RBC (Auto) (0-2) /HPF U Epithel Cells (Auto) (FEW) /HPF Urine Bacteria (Auto) (NEGATIVE) /HPF Urine RBC (0-5) Perez/ul U Non-Squamous Epi Cells Ur Culture Indicated? Urine Culture Reflexed Urine Glucose (NEGATIVE) mg/dL Influenza Type A Ag (NEGATIVE) Influenza Type B Ag (NEGATIVE) RSV (PCR) (Negative) SARS-CoV-2 (PCR) (NEGATIVE) Radiology Exams: Radiology Procedures Category Date Time Status CHEST 1 VIEW (PORTABLE) Stat Exams 10/27/21 09:18 Completed CHEST WITH CONTRAST [CT] Stat Exams 10/27/21 10:[address]/CHEST WITH CONTRAST Indication: Cough. Pneumonia. Pulmonary embolus. Multiple contiguous axial images obtained through the chest using 100 cc Isovue 370 contrast and PE protocol. Comparison: October 03, 2020. There is good opacification of the pulmonary arteries to include the lobar and segmental branches. No pulmonary embolus. Heart not enlarged. Aorta is normal in course and caliber. No pathologic mediastinal/hilar lymphadenopathy. Lungs demonstrates new minimal patchy right upper and left lower lobe groundglass air space disease. Also mild/moderate bilateral mid-to lower lung subsegmental atelectasis/scarring. No consolidation or effusion. Bony thorax intact again with mild degenerative changes throughout the spine. Limited upper abdomen demonstrates mild fatty liver and 13.5 cm splenomegaly. Impression: 1. Negative pulmonary embolus. 2. New right upper and left lower lobe patchy groundglass airspace disease. 3. Bilateral subsegmental atelectasis/scarring. 4. Fatty liver and splenomegaly. Assessment/Plan (1) Pneumonia Current Visit: Yes Status: Acute Qualifiers: Laterality: bilateral Lung location: unspecified part of lung Assessment & Plan: Chief Complaint Diagnosis shortness of breath for 2-3 days Allergies Allergy/AdvReac Type Severity Reaction Status Date / Time adhesive tape Allergy Verified 10/27/21 13:59 bee venom protein (honey bee) Allergy Verified 10/27/21 13:59 Vital Signs (Last 24 hours) Temp Pulse Resp BP Pulse Ox 10/28/21 08:00 98.4 F 80 22 145/73 92 L 10/28/21 07:31 89 18 93 L 10/28/21 04:00 98.0 F 79 25 H 114/55 94 L 10/28/21 00:00 97.7 F 88 20 124/58 95 10/27/21 20:00 96.9 F 94 H 16 125/64 95 10/27/21 19:36 92 H 16 95 10/27/21 16:00 98.9 F 97 H 21 138/65 93 L 10/27/21 15:41 95 10/27/21 14:48 92 H 18 96 10/27/21 13:56 98 F 110 H 22 122/77 94 L 10/27/21 13:30 98.0 F 110 H 22 122/77 94 L 10/27/21 12:00 100 H 20 120/73 95 10/27/21 11:03 101 H 18 125/69 95 10/27/21 10:36 102 H 18 118/77 94 L 10/27/21 09:56 104 H 20 95 10/27/21 09:17 98.4 F 101 H 19 124/77 95 Home Medications Medication Instructions Recorded Confirmed Last Taken Type Dulaglutide [Trulicity] 4.5 mg SQ WEEKLY 10/27/21 10/27/21 Unknown History Guaifenesin 600 mg ER [Mucinex 600 mg PO BID 10/27/21 10/27/21 Unknown History 600MG ER Tabs] Mirabegron [Myrbetriq] 50 mg PO BID 10/27/21 10/27/21 Unknown History Non-Formulary Drug [Non-Formulary 25 mg PO DAILY 10/27/21 10/27/21 Unknown History Item] Polymyxin B Sulf/Trimethoprim 10 ml OP DAILY 10/27/21 10/27/21 Unknown History [Polymyxin B-Tmp Eye Drops] Theophylline Anhydrous 300 mg PO BID 10/27/21 10/27/21 Unknown History [Theophylline] Current Medications Generic Name Dose Route Start Last Admin Trade Name Freq PRN Reason Stop Dose Admin Albuterol Sulfate 2.5 mg 10/27/21 19:00 10/28/21 07:29 Albuterol Sulfate 2.5 Mg/3 Ml Neb IH 11/26/21 18:59 2.5 mg TIDRT AUNG Administration Enoxaparin Sodium 40 mg 10/28/21 10:00 Enoxaparin Sodium 40 Mg/0.4 Ml Syringe SQ 11/27/21 09:59 DAILY AUNG Piperacillin Sod/Tazobactam 100 mls @ 200 mls/hr 10/27/21 18:00 10/28/21 05:05 Sod 3.375 gm/ Sodium Chloride IV 10/30/21 17:59 200 mls/hr Q6HT AUNG Administration Azithromycin 500 mg in 250 mls @ 250 mls/hr 10/28/21 10:00 Zithromax 500 Mg/ 250 Ml Nacl Premix IV 11/27/21 09:59 Q24H10 AUNG Sodium Chloride 1,000 mls @ 100 mls/hr 10/27/21 12:45 10/28/21 00:22 Sodium Chloride 0.9% 1000 Ml IV 11/26/21 12:44 100 mls/hr .Q10H AUNG Administration Insulin Human Lispro 0 unit 10/27/21 17:00 10/27/21 17:17 Insulin Lispro 1 Unit SQ 11/26/21 16:59 6 unit UD PRN Administration HYPERGLYCEMIA Non-Formulary Medication 1 each 10/27/21 22:00 10/27/21 21:44 Non-Formulary Drug 1 Each Each PO 10/27/21 22:01 Not Given ONCE ONE Ondansetron HCl 4 mg 10/27/21 12:36 Ondansetron Hcl 4 Mg/2 Ml Vial IV 11/26/21 12:35 Q6H PRN PRN NAUSEA/VOMITING Pantoprazole Sodium 40 mg 10/27/21 12:45 10/27/21 15:03 Pantoprazole 40 Mg Vial IV 11/26/21 12:44 40 mg Q24H AUNG Administration Tiotropium [place] 1 ea 10/28/21 10:00 10/28/21 07:30 Tiotropium [place] 18 Mcg/Cap Inhaler 11/27/21 09:59 1 ea DAILY AUNG Administration Discontinued Medications Generic Name Dose Route Start Last Admin Trade Name [place] PRN Reason Stop Dose Admin Albuterol Sulfate Confirm 10/27/21 14:40 Albuterol Sulfate 2.5 Mg/3 Ml Neb Administered 10/27/21 14:41 Dose 2.5 mg IH .STK-MED ONE Albuterol/Ipratropium 3 ml 10/27/21 09:26 10/27/21 09:39 Ipratropium/Albuterol Sulfate 3 Ml Ampul.Neb 10/27/21 09:27 3 ml STAT ONE Administration Albuterol/Ipratropium Confirm 10/27/21 09:36 Ipratropium/Albuterol Sulfate 3 Ml Ampul.Neb Administered 10/27/21 09:37 Dose 3 ml IH .STK-MED ONE Albuterol/Ipratropium 3 ml 10/27/21 13:00 Ipratropium/Albuterol Sulfate 3 Ml Ampul.Neb 11/26/21 12:59 Q6HRT [facility] Atorvastatin Calcium 40 mg 10/27/21 22:00 Atorvastatin Calcium 40 Mg Tablet PO 10/27/21 22:01 ONCE ONE Divalproex Sodium 1,000 mg 10/27/21 22:00 10/27/21 21:18 Divalproex Sodium 250 Mg Tablet Delayed Release PO 10/27/21 22:01 1,000 mg ONCE ONE Administration Docusate Sodium 100 mg 10/27/21 22:00 10/27/21 21:18 Docusate Sodium 100 Mg Capsule PO 10/27/21 22:01 100 mg ONCE ONE Administration Duloxetine HCl 60 mg 10/27/21 22:00 10/27/21 21:18 Duloxetine Hcl 30 Mg Cap PO 10/27/21 22:01 60 mg ONCE ONE Administration Gabapentin 300 mg 10/27/21 22:00 10/27/21 21:19 Gabapentin 300 Mg Capsule PO 10/27/21 22:01 300 mg ONCE ONE Administration Guaifenesin 600 mg 10/27/21 22:00 10/27/21 21:18 Guaifenesin 600 Mg Tablet Er PO 10/27/21 22:01 600 mg ONCE ONE Administration Piperacillin Sod/Tazobactam 100 mls @ 200 mls/hr 10/27/21 12:27 10/27/21 12:33 Sod 3.375 gm/ Sodium Chloride IV 10/27/21 12:56 200 mls/hr STAT ONE Administration Sodium Chloride Confirm 10/27/21 12:30 Sodium Chloride 100ml Mini-Bag Plus Administered 10/27/21 12:31 Dose 100 mls @ ud IV .STK-MED ONE Mirabegron 50 mg 10/27/21 22:00 10/27/21 21:18 Mirabegron 25 Mg Tab.Er.24h PO 10/27/21 22:01 50 mg ONCE ONE Administration Pantoprazole Sodium 40 mg 10/27/21 22:00 10/27/21 21:19 Protonix (Pantoprazole) 40 Mg Tablet PO 10/27/21 22:01 Not Given ONCE ONE Piperacillin Sod/Tazobactam Sod Confirm 10/27/21 12:30 Piperacillin/Tazobactam Sodium 3.375 Gm Vial Administered 10/27/21 12:31 Dose 3.375 gm IV .STK-MED ONE Primidone 50 mg 10/27/21 22:00 10/27/21 21:19 Primidone 50 Mg Tablet PO 10/27/21 22:01 50 mg ONCE ONE Administration Simvastatin 40 mg 10/27/21 22:00 10/27/21 21:22 Simvastatin 20 Mg Tablet PO 10/27/21 22:01 40 mg ONCE ONE Administration Theophylline 300 mg 10/27/21 22:00 10/27/21 21:19 Theophylline Anhydrous 400 Mg Tab.Er.24hr Tablet PO 10/27/21 22:01 300 mg ONCE ONE Administration Tiotropium [place] Confirm 10/27/21 14:41 Tiotropium [place] 18 Mcg/Cap Inhaler Administered 10/27/21 14:42 Dose 1 ea IH .STK-MED ONE Intake & Output (Last 24 hours) 10/25/21 10/26/21 10/27/21 10/28/21 11:59 11:59 11:59 11:59 Intake Total 3399 Output Total 1800 Balance 1599 Weight 83.915 kg 82.2 kg Microbiology Results (Last 24 hours) 10/27/21 12:30 Blood Blood Culture Gram Stain - Pending 10/27/21 12:30 Blood Blood Culture - Pending 10/27/21 09:38 Blood Blood Culture Gram Stain - Pending 10/27/21 09:38 Blood Blood Culture - Pending Laboratory Results (Last 24 hours) 10/28/21 10/27/21 10/27/21 07:15 16:01 15:40 WBC RBC Hgb Hct MCV MCH MCHC RDW Plt Count MPV Segmented Neutrophils Band Neutrophils Lymphocytes (Manual) Monocytes (Manual) Eosinophils (Manual) Nucleated RBCs Atypical Lymphocytes Toxic Granulation Platelet Estimate RBC Morphology Anisocytosis PT INR APTT Sodium Potassium Chloride Carbon Dioxide Anion Gap BUN Creatinine Estimated GFR Glucose POC Glucometer 126 H 226 H Lactic Acid Calcium Total Bilirubin AST ALT Alkaline Phosphatase Troponin I < 0.012 NT-Pro-B Natriuret Pep Serum Total Protein Albumin Urinalys Dipstick Clnc Urine Color Urine Appearance Urine pH Ur Specific [place] Urine Protein POC Urine Protein Conf Urine Ketones Urine Blood Urine Nitrite Urine Bilirubin Urine Urobilinogen Ur Leukocyte Esterase Urine Leukocytes Urine WBC (Auto) Urine RBC (Auto) U Epithel Cells (Auto) Urine Bacteria (Auto) Urine RBC U Non-Squamous Epi Cells Ur Culture Indicated? Urine Culture Reflexed Urine Glucose Influenza Type A Ag Influenza Type B Ag RSV (PCR) SARS-CoV-2 (PCR) 10/27/21 10/27/21 10/27/21 12:30 10:41 09:38 WBC RBC Hgb Hct MCV MCH MCHC RDW Plt Count MPV Segmented Neutrophils Band Neutrophils Lymphocytes (Manual) Monocytes (Manual) Eosinophils (Manual) Nucleated RBCs Atypical Lymphocytes Toxic Granulation Platelet Estimate RBC Morphology Anisocytosis PT INR APTT Sodium Potassium Chloride Carbon Dioxide Anion Gap BUN Creatinine Estimated GFR Glucose POC Glucometer Lactic Acid Calcium Total Bilirubin AST ALT Alkaline Phosphatase Troponin I < 0.012 < 0.012 NT-Pro-B Natriuret Pep Serum Total Protein Albumin Urinalys Dipstick Clnc MAIN LAB Urine Color Cancelled Urine Appearance Cancelled Urine pH Cancelled Ur Specific [place] Cancelled Urine Protein Cancelled POC Urine Protein Conf NEGATIVE Urine Ketones Cancelled Urine Blood Cancelled Urine Nitrite Cancelled Urine Bilirubin Cancelled Urine Urobilinogen Cancelled Ur Leukocyte Esterase Cancelled Urine Leukocytes NEGATIVE Urine WBC (Auto) NONE Urine RBC (Auto) NONE U Epithel Cells (Auto) NONE Urine Bacteria (Auto) NONE Urine RBC NEGATIVE U Non-Squamous Epi Cells Cancelled Ur Culture Indicated? NO Urine Culture Reflexed Cancelled Urine Glucose >=1000 Influenza Type A Ag Influenza Type B Ag RSV (PCR) SARS-CoV-2 (PCR) 10/27/21 10/27/21 10/27/21 09:38 09:38 09:38 WBC RBC Hgb Hct MCV MCH MCHC RDW Plt Count MPV Segmented Neutrophils Band Neutrophils Lymphocytes (Manual) Monocytes (Manual) Eosinophils (Manual) Nucleated RBCs Atypical Lymphocytes Toxic Granulation Platelet Estimate RBC Morphology Anisocytosis PT 12.5 INR 1.06 APTT 34.2 Sodium 141 Potassium 4.2 Chloride 104 Carbon Dioxide 30 Anion Gap 11.7 BUN 17 Creatinine 0.70 Estimated GFR > 60.0 Glucose 139 H POC Glucometer Lactic Acid 1.6 Calcium 9.6 Total Bilirubin 0.40 AST 31 ALT 21 Alkaline Phosphatase 43 Troponin I NT-Pro-B Natriuret Pep 95.8 Serum Total Protein 7.3 Albumin 4.3 Urinalys Dipstick Clnc Urine Color Urine Appearance Urine pH Ur Specific [place] Urine Protein POC Urine Protein Conf Urine Ketones Urine Blood Urine Nitrite Urine Bilirubin Urine Urobilinogen Ur Leukocyte Esterase Urine Leukocytes Urine WBC (Auto) Urine RBC (Auto) U Epithel Cells (Auto) Urine Bacteria (Auto) Urine RBC U Non-Squamous Epi Cells Ur Culture Indicated? Urine Culture Reflexed Urine Glucose Influenza Type A Ag Influenza Type B Ag RSV (PCR) SARS-CoV-2 (PCR) 10/27/21 10/27/21 09:38 09:26 WBC 21.1 H RBC 4.63 Hgb 13.5 Hct 43.1 MCV 93.1 MCH 29.2 MCHC 31.3 L RDW 15.1 H Plt Count 175 MPV 10.6 Segmented Neutrophils 62 Band Neutrophils 4 H Lymphocytes (Manual) 29 Monocytes (Manual) 2 Eosinophils (Manual) 1 Nucleated RBCs 1 Atypical Lymphocytes 2 Toxic Granulation 1+ Platelet Estimate NORMAL RBC Morphology ABNORMAL Anisocytosis 1+ PT INR APTT Sodium Potassium Chloride Carbon Dioxide Anion Gap BUN Creatinine Estimated GFR Glucose POC Glucometer Lactic Acid Calcium Total Bilirubin AST ALT Alkaline Phosphatase Troponin I NT-Pro-B Natriuret Pep Serum Total Protein Albumin Urinalys Dipstick Clnc Urine Color Urine Appearance Urine pH Ur Specific [place] Urine Protein POC Urine Protein Conf Urine Ketones Urine Blood Urine Nitrite Urine Bilirubin Urine Urobilinogen Ur Leukocyte Esterase Urine Leukocytes Urine WBC (Auto) Urine RBC (Auto) U Epithel Cells (Auto) Urine Bacteria (Auto) Urine RBC U Non-Squamous Epi Cells Ur Culture Indicated? Urine Culture Reflexed Urine Glucose Influenza Type A Ag NEGATIVE Influenza Type B Ag NEGATIVE RSV (PCR) NEGATIVE SARS-CoV-2 (PCR) NEGATIVE Orders (Last 24 hours) Category Date Time Status EKG-ER Only STAT Care 10/27/21 09:18 Completed IV Care Q6H Care 10/27/21 12:31 Active POCT Glucose Check ACHS Care 10/27/21 15:[address] in Observation ROUTINE Care 10/27/21 12:31 Active Vital Signs Q4H Care 10/27/21 12:31 Active Heart-Healthy Diet Diet 10/27/21 Dinner Active CHEST 1 VIEW (PORTABLE) Stat Exams 10/27/21 09:18 Completed CHEST WITH CONTRAST [CT] Stat Exams 10/27/21 10:34 Completed BLOOD CULTURE Stat Lab 10/27/21 12:30 Received CBC W DIFF Stat Lab 10/27/21 09:38 Completed CBC W DIFF Urgent Lab 10/28/21 08:25 Received CMP Stat Lab 10/27/21 09:38 Completed CMP Urgent Lab 10/28/21 07:08 Ordered Lactic Acid Stat Lab 10/27/21 09:38 Completed Manual Differential NC Stat Lab 10/27/21 09:38 Completed NT PRO BNP Stat Lab 10/27/21 09:38 Completed POCT GLUCOSE Stat Lab 10/27/21 16:01 Completed POCT GLUCOSE Stat Lab 10/28/21 07:15 Completed PROTIME WITH INR Stat Lab 10/27/21 09:38 Completed PTT Stat Lab 10/27/21 09:38 Completed TROPONIN Q3H Lab 10/27/21 09:38 Completed TROPONIN Q3H Lab 10/27/21 12:30 Completed TROPONIN Q3H Lab 10/27/21 15:40 Completed Albuterol 2.5 mg/3 ml Neb [Proventil 2.5 mg/3 ml Neb Med 10/27/21 14:40 Discontinued ] 2.5 mg IH .STK-MED ONE Albuterol 2.5 mg/3 ml Neb [Proventil 2.5 mg/3 ml Neb Med 10/27/21 19:00 Active ] 2.5 mg IH TIDRT Albuterol/Ipratropium 3ml Neb* [DUONEB 0.5-3 MG/3 ml Med 10/27/21 09:36 Discontinued Neb] 3 ml IH .STK-MED ONE Albuterol/Ipratropium 3ml Neb* [DUONEB 0.5-3 MG/3 ml Med 10/27/21 13:00 Discontinued Neb] 3 ml IH Q6HRT Albuterol/Ipratropium 3ml Neb* [DUONEB 0.5-3 MG/3 ml Med 10/27/21 09:26 Discontinued Neb] 3 ml IH STAT ONE Atorvastatin Calcium [Lipitor 40Mg] Med 10/27/21 22:00 Discontinued 40 mg PO ONCE ONE Azithromycin 500 mg/250 ml [Zithromax 500 MG/ 250 ML Med 10/28/21 10:00 Active NaCl Premix] 500 mg in 250 ml IV Q24H10 Divalproex Sodium 250 mg [Divalproex DR 250 mg Tab] Med 10/27/21 22:00 Discontinued 1,000 mg PO ONCE ONE Docusate Sodium 100 mg [Colace 100 MG] Med 10/27/21 22:00 Discontinued 100 mg PO ONCE ONE Duloxetine HCl 30 mg [Cymbalta 30 MG Capsule] Med 10/27/21 22:00 Discontinued 60 mg PO ONCE ONE Enoxaparin Sodium [Enoxaparin Sodium] Med 10/28/21 10:00 Active 40 mg SQ DAILY Gabapentin 300 mg [Neurontin 300 mg] Med 10/27/21 22:00 Discontinued 300 mg PO ONCE ONE Guaifenesin 600 mg ER [Mucinex 600MG ER Tabs] Med 10/27/21 22:00 Discontinued 600 mg PO ONCE ONE Insulin Lispro [Humalog] Med 10/27/21 17:00 Active See Dose Instructions SQ UD PRN Mirabegron [Myrbetriq] Med 10/27/21 22:00 Discontinued 50 mg PO ONCE ONE NaCl 0.9% 100 ml Mini-Bag Plus [Sodium Chloride 100ML Med 10/27/21 12:30 Discontinued MINI-BAG PLUS] 100 ml IV UD NaCl 0.9% 1000 ml [Sodium Chloride 0.9% 1000 ML] 1,000 Med 10/27/21 12:45 Active ml IV 100 mls/hr Non-Formulary Drug [Non-Formulary Bulk Item] Med 10/27/21 22:00 Once 1 each PO ONCE ONE Ondansetron HCl 4 mg/2 ml [Zofran 4 MG/2 ML VIAL] Med 10/27/21 12:36 Active 4 mg IV Q6H PRN PRN PANTOPRAZOLE 40 mg Tablet [Protonix 40MG Tablet] Med 10/27/21 22:00 Discontinued 40 mg PO ONCE ONE Pantoprazole 40 mg [Protonix 40 mg IV] Med 10/27/21 12:45 Active 40 mg IV Q24H Piperacillin/Tazobactam 3.375G [Piperacillin/Tazobactam Med 10/27/21 12:30 Discontinued ] 3.375 gm IV .STK-MED ONE Piperacillin/Tazobactam 3.375G [Piperacillin/Tazobactam Med 10/27/21 18:00 Active ] 3.375 gm NaCl 0.9% 100 ml Mini-Bag Plus [Sodium Chloride 100ML MINI-BAG PLUS] 100 ml IV Q6HT Piperacillin/Tazobactam 3.375G [Piperacillin/Tazobactam Med 10/27/21 12:27 Discontinued ] 3.375 gm NaCl 0.9% 100 ml Mini-Bag Plus [Sodium Chloride 100ML MINI-BAG PLUS] 100 ml IV STAT Primidone 50 MG [Mysoline 50Mg] Med 10/27/21 22:00 Discontinued 50 mg PO ONCE ONE Simvastatin 20Mg [Zocor 20Mg] Med 10/27/21 22:00 Discontinued 40 mg PO ONCE ONE Theophylline Anhydrous [Theophylline ER 24Hr] Med 10/27/21 22:00 Discontinued 300 mg PO ONCE ONE Tiotropium [place] Inhaler [Spiriva 18 Mcg/Cap Med 10/27/21 14:41 Discontinued Inhaler] 1 [facility] .STK-MED ONE Tiotropium [place] Inhaler [Spiriva 18 Mcg/Cap Med 10/28/21 10:00 Active Inhaler] 1 [facility] DAILY Oxygen Nasal Cannula 3 lpm RT 10/27/21 14:48 Active Pulse Oximetry .spot check RT 10/27/21 14:47 Active Respiratory Therapy Assessment DAILY RT 10/27/21 09:40 Completed Respiratory Therapy Assessment DAILY RT 10/27/21 14:47 Active Code(s): J18.9 - PNEUMONIA, UNSPECIFIED ORGANISM (2) COPD with exacerbation Current Visit: No Status: Acute Code(s): J44.1 - CHRONIC OBSTRUCTIVE PULMONARY DISEASE W (ACUTE) EXACERBATION
[2021-10-28] MEDS ORDERED: TYLENOL EXTRA STRENGTH 500 MG PO PRN (08:40)
[2021-10-28] MEDS ORDERED: EPINEPHRINE 0.3 MG/0.3 ML IM PRN (08:40)
[2021-10-28] MEDS ORDERED: Ventolin Hfa MDI IH PRN (08:40)
[2021-10-28] MEDS ORDERED: DULAGLUTIDE 4.5 MG/0.5 ML SQ SCH (08:45)
[2021-10-28 08:51] LABS: ALBUMIN 3.8 g/dL (3.5-5.0); ALKALINE PHOSPHATASE 40 U/L (38-126); ANION GAP 13.7 MEQ/L (5-15); BLOOD UREA NITROGEN 10 mg/dL (9-20); CHLORIDE 104 mmol/L (98-107); Calcium 8.6 mg/dL (8.4-10.2); Carbon Dioxide 26 mmol/L (22-30); Creatinine 1 0.71 mg/dL (0.66-1.25); EST GLOMERULAR FILTRATION RATE > 60.0 ML/MIN; Glucose 150 mg/dL (74-106); Potassium 4.1 mmol/L (3.5-5.1); SGOT/AST 36 U/L (17-59); SGPT/ALT 20 U/L (0-50); SODIUM 140 mmol/L (137-145); Total Protein 6.7 g/dL (6.3-8.2)
[2021-10-28] MEDS ORDERED: VENTOLIN COMMON CANISTER IH PRN (09:09)
[2021-10-28 09:18] LABS: Absolute Neutrophil Ct (ANC) 7.51 (1.4-6.9); Basophil (Absolute #) 0.02 (0-0.4); Eosinophil % 0.4 % (0.00-5.0); Eosinophil (Absolute #) 0.07 (0-0.5); Hematocrit 40.7 % (42-50); Hemoglobin 12.4 gm/dl (12.5-18.0); Lymphocytes % 52.2 % (24.0-44.0); Mean Cell Volume 94.9 fl (78-100); Mean Corpuscular Hemoglobin 28.9 pg (26-32); Mean Corpuscular Hgb Concent. 30.5 g/dl (32-36); Mean Platelet Volume 11.3 fl (7.5-11.0); Monocyte (Absolute #) 0.91 (0.0-1.3); Monocytes % 5.1 % (0.0-12.0); Neutrophil % 42.2 % (36.0-66.0); Platelet Count 167 K/mm3 (150-450); Red Blood Count 4.29 M/mm3 (4.1-5.6); Red Cell Distribution Width 15.3 % (11.5-14.0); White Blood Count 17.8 K/mm3 (4.0-10.5)
[2021-10-28] MEDS: JARDIANCE PO SCH (09:20)
[2021-10-28] MEDS: NEURONTIN 300 MG PO SCH ×3 (09:20→21:23)
[2021-10-28] MEDS: THEOPHYLLINE ER 24HR PO SCH ×2 (09:20→21:23)
[2021-10-28] MEDS: MYRBETRIQ PO SCH ×2 (09:20→21:22)
[2021-10-28] MEDS: Ditropan XL 5 MG PO SCH (09:21)
[2021-10-28] MEDS: VITAMIN D PO SCH ×3 (09:21→11:41)
[2021-10-28] MEDS: CLARITIN 10 MG PO SCH (09:21)
[2021-10-28] MEDS: ENOXAPARIN SODIUM SQ SCH (09:21)
[2021-10-28] MEDS: Flomax 0.4 MG PO SCH (09:21)
[2021-10-28] MEDS: Protonix 40MG Tablet PO SCH (09:21)
[2021-10-28] MEDS: Mucinex 600MG ER Tabs PO SCH ×2 (09:22→21:22)
[2021-10-28] MEDS: Miralax Powder 17GM PACKET PO SCH ×2 (09:22→12:48)
[2021-10-28] MEDS: Lantus Insulin SQ SCH (09:22)
[2021-10-28] MEDS: MYSOLINE 50MG PO SCH ×3 (09:23→21:22)
[2021-10-28] MEDS: Docusate Sodium 100 MG PO SCH ×2 (09:24→21:22)
[2021-10-28] MEDS: Zithromax 500 MG/ 250 ML NaCl Premix 500 MG/250 ML IVPB IV SCH (09:24)
[2021-10-28] MEDS: Cymbalta 30 MG Capsule PO SCH ×3 (09:41→21:24)
[2021-10-28] MEDS: Calcium 500MG W/Vit D Tablet PO SCH ×3 (09:41→21:22)
[2021-10-28] MEDS: ECOTRIN 81 MG PO SCH ×2 (09:41→10:10)
[2021-10-28] MEDS: THERAGRAN MULTIVITAMIN PO SCH ×2 (09:41→10:10)
[2021-10-28] MEDS: Vitamin C 500 MG PO SCH (09:41)
[2021-10-28] MEDS ORDERED: NON-FORMULARY ITEM (Non-Formulary Drug [Non-Formulary Item] 1 EACH Each) PO SCH (10:00)
[2021-10-28] MEDS ORDERED: ACARBOSE 50 MG PO SCH (10:00)
[2021-10-28] MEDS ORDERED: [UNRECOGNIZED DRUG - OTHER] OP SCH (10:00)
[2021-10-28] MEDS ORDERED: POLYMYXIN B SULF OP SCH (10:00)
[2021-10-28] MEDS ORDERED: NON-FORMULARY ITEM (Mv-Mn/Iron/Folic Acid/Herb 190 [Vitamin D3 Complete Caplet] 1 EACH Tab PO SCH (10:00)
[2021-10-28] MEDS ORDERED: NON-FORMULARY ITEM (Oxybutynin Chloride [Oxybutynin Chloride Er] 10 MG Tab.Er.24) PO SCH (10:00)
[2021-10-28] MEDS ORDERED: FLUTICASONE-SALMETEROL 250-50 IH SCH (10:00)
[2021-10-28] MEDS ORDERED: NON-FORMULARY ITEM (Multivitamin [Multivitamins] 1 EACH Capsule) PO SCH (10:00)
[2021-10-28] MEDS ORDERED: ALBUTEROL SULFATE 0.63 MG/3 ML IH SCH (10:00)
[2021-10-28] MEDS ORDERED: ASCORBIC ACID 500 MG PO SCH (10:00)
[2021-10-28] MEDS ORDERED: NON-FORMULARY ITEM (Omeprazole [Omeprazole] 40 MG Capsule.Dr) PO SCH (10:00)
[2021-10-28] MEDS ORDERED: TRIMETHOPRIM OP SCH (10:00)
[2021-10-28] MEDS ORDERED: NON-FORMULARY ITEM (Aspirin [Aspirin] 81 MG Tablet) PO SCH (10:00)
[2021-10-28] MEDS ORDERED: LEVOMEFOLATE CALCIUM 7.5 MG PO SCH (10:00)
[2021-10-28] MEDS ORDERED: NON-FORMULARY ITEM (Duloxetine Hcl [Cymbalta] 60 MG Capsule.Dr) PO SCH (10:00)
[2021-10-28] MEDS ORDERED: NON-FORMULARY ITEM (Calcium Carbonate/Vitamin D3 [Calcium 600-Vit D3 400 Caplet] 1 EACH Ta PO SCH (10:00)
[2021-10-28] MEDS ORDERED: NON-FORMULARY ITEM (Divalproex Sodium [Depakote] 500 MG Tablet.Dr) PO SCH (10:00)
[2021-10-28] MEDS ORDERED: MEDICATION INTERVENTION MC SCH ×3 (10:45)
[2021-10-28] MEDS ORDERED: [UNRECOGNIZED DRUG - OTHER] PO SCH (11:30)
[2021-10-28 11:41] LABS: Slide Review 1 YES
[2021-10-28] MEDS: PROTONIX 40 MG IV IV SCH (12:25)
[2021-10-28] MEDS: DUONEB 0.5-3 MG/3 ml Neb IH SCH (13:24)
[2021-10-28] MEDS: Advair Hfa 115/21 Common canister IH SCH ×2 (13:48→18:46)
[2021-10-28] MEDS: HUMALOG SQ PRN ×2 (16:37→21:25)
[2021-10-28] MEDS: ZOCOR 20MG PO SCH (21:23)
[2021-10-28] MEDS ORDERED: Depakote EXTENDED RELEASE 250 MG PO SCH (22:00)
[2021-10-28] MEDS ORDERED: LIPITOR 40MG PO SCH (22:00)
[2021-10-29] MEDS: PIPERACILLIN/TAZOBACTAM 3.375 GM in Sodium Chloride 100ML MINI-BAG PLUS 100 ML IV SCH ×3 (05:17→18:31)
[2021-10-29] MEDS: PROVENTIL 2.5 MG/3 ML NEB IH SCH ×3 (08:08→19:11)
[2021-10-29] MEDS: Advair Hfa 115/21 Common canister IH SCH ×2 (08:11→19:14)
[2021-10-29] MEDS: Spiriva 18 Mcg/Cap Inhaler IH SCH (08:12)
[2021-10-29] MEDS: Zithromax 500 MG/ 250 ML NaCl Premix 500 MG/250 ML IVPB IV SCH (08:20)
[2021-10-29] MEDS: ENOXAPARIN SODIUM SQ SCH (08:23)
[2021-10-29] MEDS: Miralax Powder 17GM PACKET PO SCH (08:23)
[2021-10-29] MEDS: THEOPHYLLINE ER 24HR PO SCH ×2 (08:24→21:04)
[2021-10-29] MEDS: Docusate Sodium 100 MG PO SCH ×2 (08:24→21:03)
[2021-10-29] MEDS: MYRBETRIQ PO SCH ×2 (08:24→21:03)
[2021-10-29] MEDS: Ditropan XL 5 MG PO SCH (08:24)
[2021-10-29] MEDS: VITAMIN D PO SCH (08:24)
[2021-10-29] MEDS: THERAGRAN MULTIVITAMIN PO SCH (08:25)
[2021-10-29] MEDS: Flomax 0.4 MG PO SCH (08:25)
[2021-10-29] MEDS: CLARITIN 10 MG PO SCH (08:25)
[2021-10-29] MEDS: Mucinex 600MG ER Tabs PO SCH ×2 (08:25→21:03)
[2021-10-29] MEDS: Calcium 500MG W/Vit D Tablet PO SCH ×3 (08:25→21:02)
[2021-10-29] MEDS: NEURONTIN 300 MG PO SCH ×3 (08:26→21:03)
[2021-10-29] MEDS: MYSOLINE 50MG PO SCH ×3 (08:26→21:03)
[2021-10-29] MEDS: Vitamin C 500 MG PO SCH ×2 (08:26→08:33)
[2021-10-29] MEDS: ECOTRIN 81 MG PO SCH (08:26)
[2021-10-29] MEDS: Lantus Insulin SQ SCH (08:26)
[2021-10-29] MEDS: Protonix 40MG Tablet PO SCH (08:26)
[2021-10-29] MEDS: JARDIANCE PO SCH (08:26)
[2021-10-29] MEDS: HUMALOG SQ PRN ×4 (08:27→21:05)
[2021-10-29] MEDS: Sodium Chloride 0.9% 1000 ML 1,000 ML IV SCH (14:07)
[2021-10-29] MEDS: PATIENT OWN MEDICATION PO SCH ×2 (18:31→21:04)
--- NOTE | 2021-10-29 18:47 | PCM.NOTE ---
Date and Time: 10/29/211843 Subjective Assessment: Patient states he is feeling better but still coughing and some shortness of breath. He states no more chilling. Appetite is good. Is getting resp tx scheduled. Objective Exam General Appearance: no apparent distress Neurologic Exam: alert, oriented x 3, cooperative Skin Exam: normal color, warm, dry Ears, Nose, Throat Exam: normal ENT inspection Neck Exam: normal inspection Respiratory Exam: rhonchi (eew and loose scattered ronchi), wheezing Cardiovascular Exam: regular rate/rhythm OBJECTIVE DATA Vital Signs: Vital Signs - 24 hr Temp Pulse Resp BP BP Pulse Ox 10/29/21 16:00 97.8 F 113 H 20 134/73 92 L 10/29/21 13:35 104 H 20 94 L 10/29/21 12:00 97.7 F 108 H 20 143/65 92 L 10/29/21 08:22 95 10/29/21 08:14 95 10/29/21 08:00 96.9 F 87 20 136/71 94 L 10/29/21 00:00 98.2 F 102 H 20 124/62 96 10/28/21 19:52 98.2 F 111 H 22 132/61 94 L 10/28/21 18:46 113 H 22 94 L Pain Assessment - Last Documented Pain Intensity 0 Intake and Output: Intake & Output 10/27/21 10/28/21 10/29/21 10/30/21 11:59 11:59 11:59 11:59 Intake Total 4239 4129 1866 Output Total 2500 3920 1300 Balance 1739 209 566 Weight 83.915 kg 82.2 kg Lab Results: Lab Results-Last 24 Hours 10/28/21 10/29/21 10/29/21 Range/Units 21:10 07:08 11:33 POC Glucometer 374 H 213 H 180 H (74 to 106) mg/dL 10/29/21 Range/Units 15:51 POC Glucometer 247 H (74 to 106) mg/dL Multi-Disciplinary Progress Notes: Multi-Disciplinary Progress Notes 10/29/21 12:44 Case Management Note by Nadege Brand CLARIFIED CURRENT OXYGEN ORDER WITH ELÍAS. PATIENT CURRENT OXYGEN ORDER IS 3L/NC 24/7. PATIENT SHOULD HAVE CONCENTRATOR AND PORTABILITY ALREADY AT HOME Initialized on 10/29/21 12:44 - END OF NOTE Assessment/Plan (1) Aspiration pneumonia Current Visit: No Status: Acute Assessment & Plan: clinically improved, is on thickened liquids Code(s): J69.0 - PNEUMONITIS DUE TO INHALATION OF FOOD AND VOMIT
[2021-10-29] MEDS: Cymbalta 30 MG Capsule PO SCH (21:03)
[2021-10-29] MEDS: ZOCOR 20MG PO SCH (21:04)
[2021-10-30] MEDS: PIPERACILLIN/TAZOBACTAM 3.375 GM in Sodium Chloride 100ML MINI-BAG PLUS 100 ML IV SCH ×5 (00:01→23:30)
[2021-10-30 05:07] LABS: Hematocrit 42.4 % (42-50); Hemoglobin 13.2 gm/dl (12.5-18.0); Mean Cell Volume 93.4 fl (78-100); Mean Corpuscular Hemoglobin 29.1 pg (26-32); Mean Corpuscular Hgb Concent. 31.1 g/dl (32-36); Mean Platelet Volume 11.2 fl (7.5-11.0); Platelet Count 201 K/mm3 (150-450); Red Blood Count 4.54 M/mm3 (4.1-5.6); Red Cell Distribution Width 15.1 % (11.5-14.0); White Blood Count 18.7 K/mm3 (4.0-10.5)
[2021-10-30 05:32] LABS: ALKALINE PHOSPHATASE 42 U/L (38-126); ANION GAP 14.6 MEQ/L (5-15); BLOOD UREA NITROGEN 10 mg/dL (9-20); CHLORIDE 98 mmol/L (98-107); Carbon Dioxide 29 mmol/L (22-30); Creatinine 1 0.76 mg/dL (0.66-1.25); EST GLOMERULAR FILTRATION RATE > 60.0 ML/MIN; Glucose 179 mg/dL (74-106); SGOT/AST 55 U/L (17-59); SGPT/ALT 32 U/L (0-50); SODIUM 138 mmol/L (137-145); Total Protein 7.4 g/dL (6.3-8.2)
[2021-10-30] MEDS: PROVENTIL 2.5 MG/3 ML NEB IH SCH ×3 (05:37→20:00)
[2021-10-30] MEDS: Spiriva 18 Mcg/Cap Inhaler IH SCH (05:37)
[2021-10-30] MEDS: Advair Hfa 115/21 Common canister IH SCH ×2 (05:37→20:00)
[2021-10-30 05:56] LABS: Lymphocytes 60 % (24-44); Monocyte 1 % (0.0-12.0); Platelet Estimate NORMAL (NORMAL); Total Cells Counted 100
[2021-10-30 05:57] LABS: Macrocytosis 1+
[2021-10-30] MEDS: PATIENT OWN MEDICATION PO SCH ×5 (07:30→21:21)
[2021-10-30] MEDS: Zithromax 500 MG/ 250 ML NaCl Premix 500 MG/250 ML IVPB IV SCH (08:56)
[2021-10-30] MEDS: Cymbalta 30 MG Capsule PO SCH ×2 (08:57→21:23)
[2021-10-30] MEDS: Flomax 0.4 MG PO SCH (08:57)
[2021-10-30] MEDS: ENOXAPARIN SODIUM SQ SCH (08:57)
[2021-10-30] MEDS: Mucinex 600MG ER Tabs PO SCH (08:58)
[2021-10-30] MEDS: Ditropan XL 5 MG PO SCH (08:58)
[2021-10-30] MEDS: MYRBETRIQ PO SCH ×2 (08:58→21:27)
[2021-10-30] MEDS: NEURONTIN 300 MG PO SCH (08:59)
[2021-10-30] MEDS: Miralax Powder 17GM PACKET PO SCH (08:59)
[2021-10-30] MEDS: HUMALOG SQ PRN ×3 (08:59→22:10)
[2021-10-30] MEDS: MYSOLINE 50MG PO SCH ×3 (09:00→21:24)
[2021-10-30] MEDS: Calcium 500MG W/Vit D Tablet PO SCH ×3 (09:00→21:25)
[2021-10-30] MEDS: Lantus Insulin SQ SCH (09:01)
[2021-10-30] MEDS: CLARITIN 10 MG PO SCH (09:01)
[2021-10-30] MEDS: Protonix 40MG Tablet PO SCH (09:01)
[2021-10-30] MEDS: Docusate Sodium 100 MG PO SCH ×2 (09:01→21:23)
[2021-10-30] MEDS: THEOPHYLLINE ER 24HR PO SCH ×3 (09:02→21:26)
[2021-10-30] MEDS: JARDIANCE PO SCH (09:02)
[2021-10-30] MEDS: Sodium Chloride 0.9% 1000 ML 1,000 ML IV SCH (09:03)
[2021-10-30] MEDS: VITAMIN D PO SCH (09:03)
[2021-10-30] MEDS ORDERED: Robitussin-Dm Syrup PO PRN (09:36)
[2021-10-30] MEDS: solu-MEDROL 60 MG, Sterile H2O 10 ml 2 ML IV SCH ×4 (13:38→21:18)
[2021-10-30] MEDS: CHLORASEPTIC SPRAY 180 ML PO PRN (13:38)
[2021-10-30] MEDS: ZOCOR 20MG PO SCH (21:27)
[2021-10-31] MEDS: solu-MEDROL 60 MG, Sterile H2O 10 ml 2 ML IV SCH ×2 (05:01)
[2021-10-31] MEDS: PIPERACILLIN/TAZOBACTAM 3.375 GM in Sodium Chloride 100ML MINI-BAG PLUS 100 ML IV SCH ×2 (05:02→11:10)
[2021-10-31 05:24] LABS: Absolute Neutrophil Ct (ANC) 12.89 (1.4-6.9); Basophil (Absolute #) 0.02 (0-0.4); Eosinophil (Absolute #) 0 (0-0.5); Hematocrit 41.7 % (42-50); Hemoglobin 13.1 gm/dl (12.5-18.0); Lymphocyte (Absolute #) 10.49 (1.0-4.6); Lymphocytes % 44.2 % (24.0-44.0); Mean Cell Volume 92.5 fl (78-100); Mean Corpuscular Hgb Concent. 31.4 g/dl (32-36); Mean Platelet Volume 11.1 fl (7.5-11.0); Monocyte (Absolute #) 0.33 (0.0-1.3); Monocytes % 1.4 % (0.0-12.0); Neutrophil % 54.3 % (36.0-66.0); Platelet Count 225 K/mm3 (150-450); Red Blood Count 4.51 M/mm3 (4.1-5.6); Red Cell Distribution Width 14.9 % (11.5-14.0); White Blood Count 23.7 K/mm3 (4.0-10.5)
[2021-10-31 05:33] LABS: ALBUMIN 4.3 g/dL (3.5-5.0); ALKALINE PHOSPHATASE 45 U/L (38-126); ANION GAP 17.5 MEQ/L (5-15); BLOOD UREA NITROGEN 15 mg/dL (9-20); CHLORIDE 98 mmol/L (98-107); Carbon Dioxide 27 mmol/L (22-30); Creatinine 1 0.68 mg/dL (0.66-1.25); EST GLOMERULAR FILTRATION RATE > 60.0 ML/MIN; Glucose 212 mg/dL (74-106); Potassium 4.3 mmol/L (3.5-5.1); SGOT/AST 72 U/L (17-59); SGPT/ALT 44 U/L (0-50); SODIUM 138 mmol/L (137-145); Total Protein 7.7 g/dL (6.3-8.2)
[2021-10-31] MEDS: PROVENTIL 2.5 MG/3 ML NEB IH SCH ×2 (06:51→13:11)
[2021-10-31] MEDS: Advair Hfa 115/21 Common canister IH SCH (06:53)
[2021-10-31] MEDS: Spiriva 18 Mcg/Cap Inhaler IH SCH (06:54)
[2021-10-31 06:55] LABS: Slide Review 1 YES
[2021-10-31] MEDS: PATIENT OWN MEDICATION PO SCH ×3 (08:08→11:10)
--- NOTE | 2021-10-31 08:35 | XRAY ---
Indication: Short of breath. Comparison: October 27, 2021. PA/lateral chest unchanged again demonstrating bibasilar subsegmental atelectasis/scarring. Remaining heart and upper lungs unremarkable. No new/acute findings.
[2021-10-31] MEDS: Zithromax 500 MG/ 250 ML NaCl Premix 500 MG/250 ML IVPB IV SCH (09:03)
[2021-10-31] MEDS: MYRBETRIQ PO SCH (09:05)
[2021-10-31] MEDS: CLARITIN 10 MG PO SCH (09:05)
[2021-10-31] MEDS: Cymbalta 30 MG Capsule PO SCH (09:05)
[2021-10-31] MEDS: ECOTRIN 81 MG PO SCH (09:05)
[2021-10-31] MEDS: THERAGRAN MULTIVITAMIN PO SCH (09:05)
[2021-10-31] MEDS: Vitamin C 500 MG PO SCH (09:05)
[2021-10-31] MEDS: CHLORASEPTIC SPRAY 180 ML PO PRN (09:05)
[2021-10-31] MEDS: Lantus Insulin SQ SCH (09:05)
[2021-10-31] MEDS: Miralax Powder 17GM PACKET PO SCH (09:05)
[2021-10-31] MEDS: Protonix 40MG Tablet PO SCH (09:06)
[2021-10-31] MEDS: Ditropan XL 5 MG PO SCH (09:06)
[2021-10-31] MEDS: Calcium 500MG W/Vit D Tablet PO SCH (09:06)
[2021-10-31] MEDS: MYSOLINE 50MG PO SCH (09:06)
[2021-10-31] MEDS: Docusate Sodium 100 MG PO SCH (09:06)
[2021-10-31] MEDS: ENOXAPARIN SODIUM SQ SCH (09:07)
[2021-10-31] MEDS: JARDIANCE PO SCH (09:07)
[2021-10-31] MEDS: THEOPHYLLINE ER 24HR PO SCH (09:07)
[2021-10-31] MEDS: VITAMIN D PO SCH (09:07)
[2021-10-31] MEDS: Sodium Chloride 0.9% 1000 ML 1,000 ML IV SCH (09:07)
[2021-10-31] MEDS: Flomax 0.4 MG PO SCH (09:07)
[2021-10-31] MEDS: HUMALOG SQ PRN (11:19)
[2021-10-31 11:26] VITALS: BP 141/67
[2021-10-31 13:16] VITALS: PULSE 108; O2SAT 93
--- NOTE | 2021-11-19 20:30 | PCM.DS ---
Discharge Summary Date of Admission: 10/27/21 20:34 Date of Discharge: 10/31/21 Admitting Physician: PETER WOLF Primary Care Provider: FELISHA NAVAS Allergies Allergies adhesive tape Allergy (Verified 10/27/21 13:59) bee venom protein (honey bee) Allergy (Verified 10/27/21 13:59) Hospital Summary - Hospital Course Hospital Course: Pt. admitted with aspiration pneumonia after drinking thin liquids. Pt. started on appropriate antibiotics and gradually improved daily until back to his baseline and ready for discharge to home. - Vitals & Intake/Output Vital Signs: Vital Signs Temperature 97.5 F 10/31/21 11:25 Pulse Rate 108 H 10/31/21 13:14 Respiratory Rate 20 10/31/21 13:14 Blood Pressure 141/67 10/31/21 11:25 O2 Sat by Pulse Oximetry 93 L 10/31/21 13:14 - Lab Result Diagrams: 10/31/21 04:30 10/31/21 04:30 Micro Results-Entire Visit: Microbiology 10/27/21 12:30 Blood Culture Gram Stain - Final Blood Not Reportable Blood Culture - Final NO GROWTH 10/27/21 09:38 Blood Culture Gram Stain - Final Blood Not Reportable Blood Culture - Final NO GROWTH - Procedures and Test Procedures and Tests throughout Hospitalization: Therapy Orders & Screens 10/27/21 09:40 Respiratory Therapy Assessment DAILY Comment: 10/27/21 14:47 Respiratory Therapy Assessment DAILY Comment: Diagnosis: Pneumonia 10/27/21 14:48 Oxygen Nasal Cannula 3 lpm Comment: Diagnosis: Pneumonia 10/30/21 09:21 CPT ASORD Comment: Diagnosis: PNEUMONIA, EXAC COPD 10/30/21 15:33 Flutter Therapy UD Comment: Diagnosis: PNEUMONIA, EXAC COPD Discharge Exam General Appearance: no apparent distress, alert Neurologic Exam: alert, oriented x 3, cooperative, normal mood/affect, nml cerebellar function, sensation nml, No motor deficits Eye Exam: PERRL, EOMI, eyes nml inspection Ears, Nose, Throat Exam: normal ENT inspection, pharynx normal, moist mucous membranes Neck Exam: normal inspection, non-tender, supple, full range of motion Respiratory Exam: lungs clear, rhonchi, wheezing (these are mostly chronic findings in CM), No normal breath sounds, No respiratory distress Cardiovascular Exam: regular rate/rhythm, normal heart sounds Gastrointestinal/Abdomen Exam: soft, No tenderness, No mass Male Genitalia Exam: deferred Rectal Exam: deferred Back Exam: normal inspection, normal range of motion, No CVA tenderness, No vertebral tenderness Extremity Exam: normal inspection, normal range of motion Skin Exam: normal color, warm, dry Final Diagnosis/Problem List - Final Discharge Diagnosis/Problem (1) Aspiration pneumonia Status: Acute Code(s): J69.0 - PNEUMONITIS DUE TO INHALATION OF FOOD AND VOMIT (2) COPD with exacerbation Status: Acute Code(s): J44.1 - CHRONIC OBSTRUCTIVE PULMONARY DISEASE W (ACUTE) EXACERBATION (3) Cough Status: Acute Code(s): R05 - COUGH * DO NOT USE * - Discharge Discharge Date: 10/31/21 Disposition: Home, Self-Care Condition: Stable Prescriptions: New Theophylline Anhydrous [Theophylline ER 24Hr] 400 mg PO BID #60 Azithromycin [Azithromycin 250 mg Pack] 250 mg PO UD #6 tablet Prednisone 20 mg [Deltasone 20 mg] 40 mg PO DAILY 5 Days #12 tablet Continue Omeprazole 40 mg PO BID Fluticasone/Salmeterol [Advair 250-50 Diskus] 1 puff IH BID Tiotropium [place] Inhaler [Spiriva 18 Mcg/Cap Inhaler] 18 mcg IH DAILY Primidone 50 MG [Mysoline 50Mg] 50 mg PO TID Tamsulosin HCl 0.4 mg [Flomax 0.4 MG] 1 cap PO DAILY Duloxetine HCl [Cymbalta] 60 mg PO BID Divalproex Sodium [Depakote] 1,000 mg PO BID Multivitamin [Multivitamins] 1 each PO DAILY Albuterol Sulfate [Proair Hfa] 2 puff IH Q4H PRN PRN PRN Reason: Shortness Of Breath/Wheezing Loratadine 10 mg PO DAILY Atorvastatin Calcium 40 mg PO HS Ascorbic Acid [Fruit C-500] 500 mg PO DAILY Maltodextrin/Xanthan Gum [Thicken Up Clear Powder Packet] 1 packet PO ACHS Insulin Glargine [Lantus Insulin] 40 unit SQ QAM EPINEPHrine [Epipen 2-Jeffery] 0.3 mg IM UD PRN PRN Reason: allergic reaction Empagliflozin [Jardiance] 10 mg PO DAILY Aspirin 81 mg PO DAILY Ipratropium/Albuterol Sulfate [Iprat-Albut 0.5-3(2.5) mg/3 ml] 3 ml IH QID Gabapentin 300 mg [Neurontin 300 mg] 300 mg PO TID capsule Oxybutynin Chloride [Oxybutynin Chloride ER] 10 mg PO DAILY Acetaminophen 500 mg [Tylenol Extra Strength 500 mg] 500 mg PO TIDPRN PRN PRN Reason: Pain Polyethylene Glycol 3350 17 gm [Miralax Powder 17GM PACKET] 17 gm PO DAILY Levomefolate Calcium [l-Methylfolate Calcium] 1 each PO BID Docusate Sodium 100 mg [Docusate Sodium 100 MG] 100 mg PO BID Calcium Carbonate/Vitamin D3 [Calcium 600-Vit D3 400 Caplet] 1 each PO TID Albuterol Sulfate 3 ml IH TID Acarbose [Precose] 50 mg PO TID Mv-Mn/Iron/Folic Acid/Herb 190 [Vitamin D3 Complete Caplet] 25 mcg PO DAILY Non-Formulary Drug [Non-Formulary Item] 25 mg PO DAILY Dulaglutide [Trulicity] 4.5 mg SQ WEEKLY Polymyxin B Sulf/Trimethoprim [Polymyxin B-Tmp Eye Drops] 10 ml OP DAILY Guaifenesin 600 mg ER [Mucinex 600MG ER Tabs] 600 mg PO BID Mirabegron [Myrbetriq] 50 mg PO BID Discontinued Theophylline Anhydrous [Theophylline] 300 mg PO BID Instructions: Aspiration Pneumonia Follow up with: FELISHA NAVAS MD [Primary Care Provider] - 11/06/21 3:15 pm
== END 2021-10-31 14:40 | disposition home or self-care (01) | DRG 178 ==
LOC: ED 09:15 → MED SURG 13:17 → OBSVTOIN 20:34
PROVIDERS: ADMIT General Practice; ATTEND Family Medicine
DX: J69.0 Pneumonitis due to inhalation of food and vomit (principal); J44.1 Chronic obstructive pulmonary disease with (acute) exacerbation; Z79.899 Other long term (current) drug therapy; E11.9 Type 2 diabetes mellitus without complications; R07.9 Chest pain, unspecified; Z99.81 Dependence on supplemental oxygen; Z87.820 Personal history of traumatic brain injury
CPT/HCPCS: 0241U; 36415; 71045; 71046; 71260; 80053; 81015; 82947; 83605; 83880; 84484; 85025; 85610; 85730; 87040; 93005; 93268; 94640; 94667; 94668; 94760; 96365; 99285; J0456; J1650; J1817; J2930; J7609; A9270-GY

== ENCOUNTER 2021-12-02 10:16 | Inpatient (IN) | payer MEDICARE ==
[2021-12-02 10:46] LABS: Basophil (Absolute #) 0.01 (0-0.4); Eosinophil % 0.4 % (0.00-5.0); Eosinophil (Absolute #) 0.06 (0-0.5); Hematocrit 43.3 % (42-50); Hemoglobin 13.4 gm/dl (12.5-18.0); Lymphocyte (Absolute #) 7.02 (1.0-4.6); Mean Cell Volume 93.3 fl (78-100); Mean Corpuscular Hemoglobin 28.9 pg (26-32); Mean Corpuscular Hgb Concent. 30.9 g/dl (32-36); Mean Platelet Volume 10.5 fl (7.5-11.0); Monocyte (Absolute #) 1.08 (0.0-1.3); Monocytes % 7.1 % (0.0-12.0); Neutrophil % 46.4 % (36.0-66.0); Platelet Count 191 K/mm3 (150-450); Red Blood Count 4.64 M/mm3 (4.1-5.6); Red Cell Distribution Width 15.4 % (11.5-14.0); White Blood Count 15.3 K/mm3 (4.0-10.5)
[2021-12-02 10:53] LABS: INR 1.14 (0.8-3.0); PROTIME 13.4 SECONDS (9.4-12.5)
[2021-12-02 10:56] LABS: PTT 37.1 SECONDS (25.1-36.5)
[2021-12-02 10:58] LABS: ALKALINE PHOSPHATASE 46 U/L (38-126); ANION GAP 13.3 MEQ/L (5-15); BLOOD UREA NITROGEN 14 mg/dL (9-20); CHLORIDE 103 mmol/L (98-107); Calcium 9.2 mg/dL (8.4-10.2); Carbon Dioxide 29 mmol/L (22-30); Creatinine 1 0.74 mg/dL (0.66-1.25); EST GLOMERULAR FILTRATION RATE > 60.0 ML/MIN; Glucose 193 mg/dL (74-106); NT PRO BNP 63.2 pg/mL (0-900); Potassium 4.1 mmol/L (3.5-5.1); SGOT/AST 26 U/L (17-59); SGPT/ALT 18 U/L (0-50); SODIUM 141 mmol/L (137-145); Total Protein 6.6 g/dL (6.3-8.2)
[2021-12-02 11:13] LABS: INFLUENZA A NEGATIVE (NEGATIVE); INFLUENZA B NEGATIVE (NEGATIVE); RESPIRATORY SYNCTIAL VIRUS NEGATIVE (Negative); SARS-CoV-2 Xpert Express NEGATIVE (NEGATIVE)
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
[2021-12-02] MEDS ORDERED: Sodium Chloride 0.9% 1000 ML 1,000 ML IV STA (12:25)
[2021-12-02 12:48] LABS: Slide Review 1 YES
[2021-12-02] MEDS ORDERED: PIPERACILLIN/TAZOBACTAM 3.375 GM in Sodium Chloride 100ML MINI-BAG PLUS 100 ML IV ONE (13:02)
[2021-12-02] MEDS ORDERED: Zofran 4 MG/2 ML VIAL IV PRN (13:04)
[2021-12-02] MEDS ORDERED: Sodium Chloride 100ML MINI-BAG PLUS 100 ML IV ONE (13:10)
[2021-12-02] MEDS ORDERED: PIPERACILLIN/TAZOBACTAM IV ONE (13:10)
[2021-12-02] MEDS: Sodium Chloride 0.9% 1000 ML 1,000 ML IV SCH ×2 (13:16→21:28)
[2021-12-02] MEDS ORDERED: [UNRECOGNIZED DRUG - OTHER] OP PRN (15:03)
[2021-12-02] MEDS ORDERED: TRIMETHOPRIM OP PRN (15:03)
[2021-12-02] MEDS ORDERED: EPINEPHRINE 0.3 MG/0.3 ML IM PRN (15:03)
[2021-12-02] MEDS ORDERED: Ventolin Hfa MDI IH PRN (15:03)
[2021-12-02] MEDS ORDERED: POLYMYXIN B SULF OP PRN (15:03)
[2021-12-02] MEDS ORDERED: VENTOLIN COMMON CANISTER IH PRN (15:12)
[2021-12-02] MEDS ORDERED: DULAGLUTIDE 4.5 MG/0.5 ML SQ SCH (15:15)
[2021-12-02] MEDS ORDERED: MEDICATION INTERVENTION MC PRN (15:34)
[2021-12-02] MEDS ORDERED: MEDICATION INTERVENTION MC SCH ×2 (15:45)
[2021-12-02] MEDS ORDERED: [UNRECOGNIZED DRUG - OTHER] PO SCH (16:30)
[2021-12-02] MEDS: DUONEB 0.5-3 MG/3 ml Neb IH SCH ×2 (16:31→19:30)
[2021-12-02] MEDS: PATIENT OWN MEDICATION PO SCH (17:34)
[2021-12-02] MEDS: PIPERACILLIN/TAZOBACTAM 3.375 GM in Sodium Chloride 100ML MINI-BAG PLUS 100 ML IV SCH ×2 (17:35→23:36)
[2021-12-02] MEDS: Advair Hfa 115/21 Common canister IH SCH (19:31)
--- NOTE | 2021-12-02 21:11 | XRAY ---
Indication: Cough. Comparison: October 31, 2021. Portable chest demonstrates worsening CT proven bibasilar airspace disease without large effusion. Remaining heart, upper lungs, and bony thorax unremarkable.
--- NOTE | 2021-12-02 21:11 | XRAY ---
Indication: Cough and short of breath. History Covid 19. Multiple contiguous axial images obtained through the chest without contrast. Comparison: October 27, 2021. Lungs demonstrates worsening moderate bilateral mid to lower lung patchy consolidating/nonconsolidating airspace disease without effusion. Heart is not enlarged. Aorta is normal in course and caliber. No pathologic mediastinal lymphadenopathy. Bony thorax intact again with mild degenerative changes throughout the spine. Limited upper abdomen including adrenal glands are unremarkable. Impression: Worsening diffuse bilateral consolidating/nonconsolidating airspace disease. Comment: Preliminary interpretation made by [facility]. No critical discrepancy.
[2021-12-02] MEDS: TYLENOL EXTRA STRENGTH 500 MG PO SCH (21:22)
[2021-12-02] MEDS: ZOCOR 20MG PO SCH (21:22)
[2021-12-02] MEDS: Cymbalta 30 MG Capsule PO SCH (21:22)
[2021-12-02] MEDS: Mucinex 600MG ER Tabs PO SCH (21:22)
[2021-12-02] MEDS: Calcium 500MG W/Vit D Tablet PO SCH (21:22)
[2021-12-02] MEDS: NEURONTIN PO SCH (21:22)
[2021-12-02] MEDS: Docusate Sodium 100 MG PO SCH (21:23)
[2021-12-02] MEDS: Flomax 0.4 MG PO SCH (21:23)
[2021-12-02] MEDS: MYSOLINE 50MG PO SCH (21:23)
[2021-12-02] MEDS: THEOPHYLLINE ER 24HR PO SCH (21:23)
[2021-12-02] MEDS ORDERED: ALBUTEROL SULFATE 0.63 MG/3 ML IH SCH (22:00)
[2021-12-02] MEDS ORDERED: NON-FORMULARY ITEM (Duloxetine Hcl [Cymbalta] 60 MG Capsule.Dr) PO SCH (22:00)
[2021-12-02] MEDS ORDERED: NON-FORMULARY ITEM (Omeprazole [Omeprazole] 40 MG Capsule.Dr) PO SCH (22:00)
[2021-12-02] MEDS ORDERED: NON-FORMULARY ITEM (Divalproex Sodium [Depakote] 500 MG Tablet.Dr) PO SCH (22:00)
[2021-12-02] MEDS ORDERED: NON-FORMULARY ITEM (Calcium Carbonate/Vitamin D3 [Calcium 600-Vit D3 400 Caplet] 1 EACH Ta PO SCH (22:00)
[2021-12-02] MEDS ORDERED: PROVENTIL 2.5 MG/3 ML NEB IH SCH (22:00)
[2021-12-02] MEDS ORDERED: ACARBOSE 50 MG PO SCH (22:00)
[2021-12-02] MEDS ORDERED: LIPITOR 40MG PO SCH (22:00)
[2021-12-02] MEDS ORDERED: LEVOMEFOLATE CALCIUM 7.5 MG PO SCH (22:00)
[2021-12-02] MEDS ORDERED: FLUTICASONE-SALMETEROL 250-50 IH SCH (22:00)
[2021-12-03 05:33] LABS: Hematocrit 37.4 % (42-50); Hemoglobin 11.3 gm/dl (12.5-18.0); Mean Cell Volume 94.4 fl (78-100); Mean Corpuscular Hemoglobin 28.5 pg (26-32); Mean Corpuscular Hgb Concent. 30.2 g/dl (32-36); Mean Platelet Volume 10.3 fl (7.5-11.0); Platelet Count 188 K/mm3 (150-450); Red Blood Count 3.96 M/mm3 (4.1-5.6); Red Cell Distribution Width 15.5 % (11.5-14.0); White Blood Count 14.4 K/mm3 (4.0-10.5)
[2021-12-03] MEDS: PIPERACILLIN/TAZOBACTAM 3.375 GM in Sodium Chloride 100ML MINI-BAG PLUS 100 ML IV SCH ×4 (05:36→23:40)
[2021-12-03] MEDS: Sodium Chloride 0.9% 1000 ML 1,000 ML IV SCH ×2 (05:36→17:20)
[2021-12-03 05:45] LABS: ALBUMIN 3.3 g/dL (3.5-5.0); ALKALINE PHOSPHATASE 34 U/L (38-126); ANION GAP 9.4 MEQ/L (5-15); BLOOD UREA NITROGEN 18 mg/dL (9-20); CHLORIDE 108 mmol/L (98-107); Calcium 8.3 mg/dL (8.4-10.2); Carbon Dioxide 28 mmol/L (22-30); Creatinine 1 0.74 mg/dL (0.66-1.25); EST GLOMERULAR FILTRATION RATE > 60.0 ML/MIN; Glucose 82 mg/dL (74-106); Potassium 3.8 mmol/L (3.5-5.1); SGOT/AST 21 U/L (17-59); SGPT/ALT 13 U/L (0-50); SODIUM 142 mmol/L (137-145); Total Protein 5.9 g/dL (6.3-8.2)
[2021-12-03] MEDS: Spiriva 18 Mcg/Cap Inhaler IH SCH (06:44)
[2021-12-03] MEDS: Advair Hfa 115/21 Common canister IH SCH ×2 (06:44→19:51)
[2021-12-03] MEDS: DUONEB 0.5-3 MG/3 ml Neb IH SCH ×4 (06:44→19:50)
[2021-12-03 06:49] LABS: ANISOCYTOSIS 1+; Hypochromia 1+; Lymphocytes 58 % (24-44); Monocyte 8 % (0.0-12.0); Platelet Estimate NORMAL (NORMAL); Polychromasia 1+; Total Cells Counted 100
[2021-12-03] MEDS ORDERED: Spiriva 18 Mcg/Cap Inhaler IH ONE (06:50)
[2021-12-03] MEDS: PATIENT OWN MEDICATION PO SCH ×6 (07:49→21:25)
[2021-12-03] MEDS: ENOXAPARIN SODIUM SQ SCH (09:34)
[2021-12-03] MEDS: Zithromax 500 MG/ 250 ML NaCl Premix 500 MG/250 ML IVPB IV SCH (09:34)
[2021-12-03] MEDS: NEURONTIN PO SCH ×3 (09:34→21:25)
[2021-12-03] MEDS: Mucinex 600MG ER Tabs PO SCH ×2 (09:35→21:25)
[2021-12-03] MEDS: VITAMIN D PO SCH (09:35)
[2021-12-03] MEDS: CLARITIN 10 MG PO SCH (09:35)
[2021-12-03] MEDS: THEOPHYLLINE ER 24HR PO SCH ×2 (09:36→21:26)
[2021-12-03] MEDS: ECOTRIN 81 MG PO SCH (09:36)
[2021-12-03] MEDS: Protonix 40MG Tablet PO SCH (09:36)
[2021-12-03] MEDS: Docusate Sodium 100 MG PO SCH ×2 (09:36→21:26)
[2021-12-03] MEDS: Calcium 500MG W/Vit D Tablet PO SCH ×3 (09:36→21:25)
[2021-12-03] MEDS: THERAGRAN MULTIVITAMIN PO SCH (09:36)
[2021-12-03] MEDS: MYSOLINE 50MG PO SCH ×3 (09:36→21:25)
[2021-12-03] MEDS: Miralax Powder 17GM PACKET PO SCH (09:37)
[2021-12-03] MEDS: TYLENOL EXTRA STRENGTH 500 MG PO SCH ×3 (09:37→21:25)
[2021-12-03] MEDS: JARDIANCE PO SCH (09:37)
[2021-12-03] MEDS: Cymbalta 30 MG Capsule PO SCH ×2 (09:48→21:24)
[2021-12-03] MEDS ORDERED: Spiriva 18 Mcg/Cap Inhaler IH SCH (10:00)
[2021-12-03] MEDS ORDERED: Ditropan XL 5 MG PO SCH (10:00)
[2021-12-03] MEDS ORDERED: NON-FORMULARY ITEM (Multivitamin [Multivitamins] 1 EACH Capsule) PO SCH (10:00)
[2021-12-03] MEDS ORDERED: NON-FORMULARY ITEM (Oxybutynin Chloride [Oxybutynin Chloride Er] 10 MG Tab.Er.24) PO SCH (10:00)
[2021-12-03] MEDS ORDERED: NON-FORMULARY ITEM (Aspirin [Aspirin] 81 MG Tablet) PO SCH (10:00)
[2021-12-03] MEDS ORDERED: PROTONIX 40 MG IV IV SCH (10:00)
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
[2021-12-03] MEDS: HUMALOG SQ PRN (16:23)
[2021-12-03] MEDS: ZOCOR 20MG PO SCH (21:24)
[2021-12-03] MEDS: Flomax 0.4 MG PO SCH (21:25)
[2021-12-04 04:45] LABS: Absolute Neutrophil Ct (ANC) 4.58 (1.4-6.9); Basophil (Absolute #) 0.02 (0-0.4); Eosinophil % 1.4 % (0.00-5.0); Eosinophil (Absolute #) 0.19 (0-0.5); Hematocrit 38.8 % (42-50); Hemoglobin 11.8 gm/dl (12.5-18.0); Lymphocyte (Absolute #) 7.72 (1.0-4.6); Lymphocytes % 57.7 % (24.0-44.0); Mean Cell Volume 94.6 fl (78-100); Mean Corpuscular Hemoglobin 28.8 pg (26-32); Mean Corpuscular Hgb Concent. 30.4 g/dl (32-36); Mean Platelet Volume 10.5 fl (7.5-11.0); Monocyte (Absolute #) 0.86 (0.0-1.3); Monocytes % 6.4 % (0.0-12.0); Neutrophil % 34.4 % (36.0-66.0); Platelet Count 196 K/mm3 (150-450); Red Cell Distribution Width 15.4 % (11.5-14.0); White Blood Count 13.4 K/mm3 (4.0-10.5)
[2021-12-04] MEDS: Sodium Chloride 0.9% 1000 ML 1,000 ML IV SCH ×2 (04:53→19:08)
[2021-12-04] MEDS: PIPERACILLIN/TAZOBACTAM 3.375 GM in Sodium Chloride 100ML MINI-BAG PLUS 100 ML IV SCH ×3 (05:34→17:51)
[2021-12-04 05:35] LABS: Slide Review 1 YES
[2021-12-04 05:44] LABS: ALBUMIN 3.3 g/dL (3.5-5.0); ALKALINE PHOSPHATASE 37 U/L (38-126); BLOOD UREA NITROGEN 15 mg/dL (9-20); CHLORIDE 104 mmol/L (98-107); Carbon Dioxide 30 mmol/L (22-30); Creatinine 1 0.77 mg/dL (0.66-1.25); EST GLOMERULAR FILTRATION RATE > 60.0 ML/MIN; Glucose 135 mg/dL (74-106); Potassium 3.9 mmol/L (3.5-5.1); SGOT/AST 24 U/L (17-59); SGPT/ALT 17 U/L (0-50); SODIUM 140 mmol/L (137-145)
[2021-12-04] MEDS: DUONEB 0.5-3 MG/3 ml Neb IH SCH ×6 (07:25→19:39)
[2021-12-04] MEDS: Spiriva 18 Mcg/Cap Inhaler IH SCH (07:27)
[2021-12-04] MEDS: Advair Hfa 115/21 Common canister IH SCH ×2 (07:28→19:39)
[2021-12-04] MEDS: Zithromax 500 MG/ 250 ML NaCl Premix 500 MG/250 ML IVPB IV SCH (08:35)
[2021-12-04] MEDS: PATIENT OWN MEDICATION PO SCH ×6 (09:03→21:37)
[2021-12-04] MEDS: ECOTRIN 81 MG PO SCH (09:05)
[2021-12-04] MEDS: THERAGRAN MULTIVITAMIN PO SCH (09:05)
[2021-12-04] MEDS: CLARITIN 10 MG PO SCH (09:05)
[2021-12-04] MEDS: VITAMIN D PO SCH (09:05)
[2021-12-04] MEDS: Calcium 500MG W/Vit D Tablet PO SCH ×3 (09:05→21:35)
[2021-12-04] MEDS: Cymbalta 30 MG Capsule PO SCH ×2 (09:05→21:35)
[2021-12-04] MEDS: Protonix 40MG Tablet PO SCH (09:05)
[2021-12-04] MEDS: Docusate Sodium 100 MG PO SCH ×2 (09:06→21:37)
[2021-12-04] MEDS: MYSOLINE 50MG PO SCH ×3 (09:06→21:36)
[2021-12-04] MEDS: NEURONTIN PO SCH ×3 (09:06→21:35)
[2021-12-04] MEDS: Mucinex 600MG ER Tabs PO SCH ×2 (09:06→21:36)
[2021-12-04] MEDS: THEOPHYLLINE ER 24HR PO SCH ×2 (09:07→21:37)
[2021-12-04] MEDS: TYLENOL EXTRA STRENGTH 500 MG PO SCH ×3 (09:07→21:35)
[2021-12-04] MEDS: JARDIANCE PO SCH (09:07)
[2021-12-04] MEDS: ENOXAPARIN SODIUM SQ SCH (09:07)
[2021-12-04] MEDS: Miralax Powder 17GM PACKET PO SCH (09:11)
[2021-12-04] MEDS: ZOCOR 20MG PO SCH (21:36)
[2021-12-04] MEDS: Flomax 0.4 MG PO SCH (21:36)
[2021-12-04] MEDS: HUMALOG SQ PRN (21:45)
[2021-12-05] MEDS: PIPERACILLIN/TAZOBACTAM 3.375 GM in Sodium Chloride 100ML MINI-BAG PLUS 100 ML IV SCH ×5 (00:41→23:41)
[2021-12-05] MEDS: Sodium Chloride 0.9% 1000 ML 1,000 ML IV SCH (00:57)
[2021-12-05 05:09] LABS: Hematocrit 39.6 % (42-50); Hemoglobin 12.2 gm/dl (12.5-18.0); Mean Cell Volume 93.2 fl (78-100); Mean Corpuscular Hemoglobin 28.7 pg (26-32); Mean Corpuscular Hgb Concent. 30.8 g/dl (32-36); Mean Platelet Volume 10.3 fl (7.5-11.0); Platelet Count 201 K/mm3 (150-450); Red Blood Count 4.25 M/mm3 (4.1-5.6); White Blood Count 13.6 K/mm3 (4.0-10.5)
[2021-12-05 05:23] LABS: BLOOD UREA NITROGEN 7 mg/dL (9-20); CHLORIDE 103 mmol/L (98-107); Calcium 9.6 mg/dL (8.4-10.2); Carbon Dioxide 29 mmol/L (22-30); Creatinine 1 0.66 mg/dL (0.66-1.25); EST GLOMERULAR FILTRATION RATE > 60.0 ML/MIN; Glucose 157 mg/dL (74-106); Potassium 3.7 mmol/L (3.5-5.1); SODIUM 138 mmol/L (137-145)
[2021-12-05] MEDS: Spiriva 18 Mcg/Cap Inhaler IH SCH (07:05)
[2021-12-05] MEDS: Advair Hfa 115/21 Common canister IH SCH ×2 (07:20→19:03)
[2021-12-05] MEDS: PATIENT OWN MEDICATION PO SCH ×6 (07:40→21:38)
[2021-12-05] MEDS: Mucinex 600MG ER Tabs PO SCH ×2 (07:41→21:28)
[2021-12-05] MEDS: ECOTRIN 81 MG PO SCH (07:41)
[2021-12-05] MEDS: NEURONTIN PO SCH ×3 (07:41→21:28)
[2021-12-05] MEDS: TYLENOL EXTRA STRENGTH 500 MG PO SCH ×3 (07:49→21:28)
[2021-12-05] MEDS: VITAMIN D PO SCH (07:50)
[2021-12-05] MEDS: Cymbalta 30 MG Capsule PO SCH ×2 (07:51→21:27)
[2021-12-05] MEDS: CLARITIN 10 MG PO SCH (07:51)
[2021-12-05] MEDS: MYSOLINE 50MG PO SCH ×3 (07:51→21:30)
[2021-12-05] MEDS: Calcium 500MG W/Vit D Tablet PO SCH ×3 (07:52→21:27)
[2021-12-05] MEDS: Protonix 40MG Tablet PO SCH (07:52)
[2021-12-05] MEDS: Docusate Sodium 100 MG PO SCH ×2 (07:52→21:29)
[2021-12-05] MEDS: JARDIANCE PO SCH (07:53)
[2021-12-05] MEDS: THERAGRAN MULTIVITAMIN PO SCH (07:54)
[2021-12-05] MEDS: THEOPHYLLINE ER 24HR PO SCH ×2 (07:54→21:29)
[2021-12-05] MEDS: Zithromax 500 MG/ 250 ML NaCl Premix 500 MG/250 ML IVPB IV SCH (07:54)
[2021-12-05] MEDS: Miralax Powder 17GM PACKET PO SCH (07:59)
--- NOTE | 2021-12-05 08:40 | XRAY ---
Indication: Pneumonia. Comparison: December 02, 2020. Portable chest demonstrates grossly stable bibasilar airspace disease with new small bibasilar effusions. Remaining heart and upper lungs unremarkable.
[2021-12-05] MEDS ORDERED: Sodium Chloride 0.9% 10 ML FLUSH Syringe IV PRN (09:30)
[2021-12-05] MEDS: ENOXAPARIN SODIUM SQ SCH (09:45)
[2021-12-05] MEDS: DUONEB 0.5-3 MG/3 ml Neb IH SCH ×3 (11:05→18:56)
[2021-12-05] MEDS: Sodium Chloride 0.9% 10 ML FLUSH Syringe IV SCH ×2 (14:48→21:31)
[2021-12-05] MEDS: ZOCOR 20MG PO SCH (21:29)
[2021-12-05] MEDS: Flomax 0.4 MG PO SCH (21:29)
[2021-12-05] MEDS: HUMALOG SQ PRN (21:49)
[2021-12-06 05:16] LABS: Hematocrit 40.8 % (42-50); Hemoglobin 12.5 gm/dl (12.5-18.0); Mean Cell Volume 92.1 fl (78-100); Mean Corpuscular Hemoglobin 28.2 pg (26-32); Mean Corpuscular Hgb Concent. 30.6 g/dl (32-36); Mean Platelet Volume 10.1 fl (7.5-11.0); Platelet Count 212 K/mm3 (150-450); Red Blood Count 4.43 M/mm3 (4.1-5.6)
[2021-12-06 06:06] LABS: ANION GAP 14.4 MEQ/L (5-15); BLOOD UREA NITROGEN 8 mg/dL (9-20); CHLORIDE 100 mmol/L (98-107); Calcium 9.7 mg/dL (8.4-10.2); Carbon Dioxide 29 mmol/L (22-30); Creatinine 1 0.75 mg/dL (0.66-1.25); EST GLOMERULAR FILTRATION RATE > 60.0 ML/MIN; Glucose 145 mg/dL (74-106); SODIUM 140 mmol/L (137-145)
[2021-12-06] MEDS: PIPERACILLIN/TAZOBACTAM 3.375 GM in Sodium Chloride 100ML MINI-BAG PLUS 100 ML IV SCH (06:22)
[2021-12-06] MEDS: Sodium Chloride 0.9% 10 ML FLUSH Syringe IV SCH (06:23)
[2021-12-06 06:28] LABS: Eosinophil 2 % (0.00-3.0); Lymphocytes 63 % (24-44); Monocyte 6 % (0.0-12.0); Total Cells Counted 100
[2021-12-06 06:29] LABS: Platelet Estimate NORMAL (NORMAL)
[2021-12-06] MEDS: Spiriva 18 Mcg/Cap Inhaler IH SCH (07:50)
[2021-12-06] MEDS: DUONEB 0.5-3 MG/3 ml Neb IH SCH ×2 (07:50→11:21)
--- NOTE | 2021-12-06 08:34 | CONS ---
CONSULT DATE: 12/05/2021 HISTORY: Blue Bell is a 66-year-old male well known to me with long standing pulmonary problems and recurrent aspiration pneumonia. He has been urgently admitted to [facility] with complaints of shortness of breath and x-ray suggestive of pneumonia. The patient has been treated with antibiotics. He is sitting comfortably at the time of my evaluation in a chair. He denies any acute symptoms. He does have mild cough. The patient is on nasal cannula. PAST MEDICAL HISTORY: Positive for obstructive airways disease, diabetes mellitus, traumatic brain injury and obstructive sleep apnea. PAST SURGICAL HISTORY: No recent surgery. PERSONAL AND SOCIAL HISTORY: He is cared for by his sister. MEDICATIONS: Medications are reviewed. ALLERGIES: ADHESIVE TAPE. PHYSICAL EXAMINATION: This is an elderly male who appears comfortable, able to carry out a conversation. Vital signs noted. HEENT: Normocephalic. Oral exam limited. Oropharynx is small. NECK: Supple. CVS: First and second heart sounds are normal, regular, rhythmic. RESPIRATORY: Shows diminished breath sounds, bilateral rhonchi are heard. ABDOMEN: Soft. EXTREMITIES: No edema is noted. LABORATORY DATA AND TESTS: Sodium 138, potassium 3.7, chloride 103, bicarb 29, BUN 7, glucose 157, creatinine 0.6. White blood cell count 13.6, hemoglobin 12.2, hematocrit 39.6 and PLT count 201,000. CT chest showed bilateral consolidation. ASSESSMENT: This is a 66-year-old male admitted with: 1) Recurrent aspiration pneumonia. 2) Hypoxemia. 3) Underlying chronic obstructive pulmonary disease with exacerbation. 4) Diabetes mellitus. 5) Traumatic brain injury. RECOMMENDATIONS: 1) The patient is continued on IV antibiotics. 2) Continue supplemental oxygen. 3) Continue steroids, bronchodilators, deep vein thrombosis and GI prophylaxis. 4) The patient does remain noncompliant with dysphagia diet. Repeat x-ray upon completion of antibiotic therapy for resolution of infiltrates. I will follow up in outpatient setting upon discharge. I will be available in between as needed. Thank you for allowing me to participate in the care of your patient.
--- NOTE | 2021-12-06 08:37 | XRAY ---
Indication: Pneumonia. Comparison: One day earlier. Portable chest demonstrates stable bibasilar airspace disease and small left effusion. Previous right effusion improved. Heart not enlarged. No new cardiopulmonary abnormalities.
[2021-12-06] MEDS: PATIENT OWN MEDICATION PO SCH ×3 (09:04)
[2021-12-06] MEDS: THERAGRAN MULTIVITAMIN PO SCH (09:05)
[2021-12-06] MEDS: VITAMIN D PO SCH (09:06)
[2021-12-06] MEDS: NEURONTIN PO SCH (09:06)
[2021-12-06] MEDS: MYSOLINE 50MG PO SCH (09:06)
[2021-12-06] MEDS: ECOTRIN 81 MG PO SCH (09:06)
[2021-12-06] MEDS: CLARITIN 10 MG PO SCH (09:06)
[2021-12-06] MEDS: TYLENOL EXTRA STRENGTH 500 MG PO SCH (09:07)
[2021-12-06] MEDS: Cymbalta 30 MG Capsule PO SCH (09:07)
[2021-12-06] MEDS: Protonix 40MG Tablet PO SCH (09:07)
[2021-12-06] MEDS: Mucinex 600MG ER Tabs PO SCH (09:08)
[2021-12-06] MEDS: JARDIANCE PO SCH (09:08)
[2021-12-06] MEDS: THEOPHYLLINE ER 24HR PO SCH (09:08)
[2021-12-06] MEDS: Calcium 500MG W/Vit D Tablet PO SCH (09:09)
[2021-12-06] MEDS: ENOXAPARIN SODIUM SQ SCH (09:09)
[2021-12-06] MEDS: Advair Hfa 115/21 Common canister IH SCH (10:55)
[2021-12-06] MEDS: Docusate Sodium 100 MG PO SCH (11:51)
[2021-12-06] MEDS: Zithromax 500 MG/ 250 ML NaCl Premix 500 MG/250 ML IVPB IV SCH (11:51)
[2021-12-06] MEDS: Miralax Powder 17GM PACKET PO SCH (11:51)
[2021-12-06 13:50] VITALS: BP 130/67; PULSE 89; O2SAT 97
== END 2021-12-06 12:10 | disposition home or self-care (01) | DRG 194 ==
LOC: ED 10:16 → MED SURG 13:27 → OBSVTOIN 12-03 15:54
PROVIDERS: ADMIT Family Medicine; ATTEND Family Medicine
DX: J18.9 Pneumonia, unspecified organism (principal); J44.1 Chronic obstructive pulmonary disease with (acute) exacerbation; R09.02 Hypoxemia; E11.9 Type 2 diabetes mellitus without complications; G47.30 Sleep apnea, unspecified; Z79.899 Other long term (current) drug therapy; Z20.828 Contact with and (suspected) exposure to other viral communicable diseases; Z99.81 Dependence on supplemental oxygen; Z87.820 Personal history of traumatic brain injury
CPT/HCPCS: 0241U; 36415; 71045; 71046; 71250; 80048; 80053; 80198; 82947; 83036; 83605; 83880; 84134; 84484; 85025; 85027; 85379; 85610; 85730; 87040; 94640; 94760; 96365; 99285; G0378; J0456; J1650; J1817; A9270-GY

== ENCOUNTER 2022-01-04 16:51 | Observation (INO) | payer MEDICARE ==
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
[2022-01-04] MEDS ORDERED: FEVERALL 650 MG PR ONE (17:05)
[2022-01-04] MEDS ORDERED: FEVERALL 650 MG ONE (17:06)
[2022-01-04] MEDS ORDERED: Sodium Chloride 0.9% 1000 ML 1,000 ML IV SCH ×2 (17:15→18:15)
[2022-01-04 17:28] LABS: Hematocrit 44.2 % (42-50); Hemoglobin 13.7 g/dL (12.5-18.0); Mean Cell Volume 90.8 fL (78-100); Mean Corpuscular Hemoglobin 28.1 pg (26-32); Mean Platelet Volume 10.4 fL (7.5-11.0); Platelet Count 200 x10^3/uL (150-450); Red Blood Count 4.87 x10^6/uL (4.1-5.6); Red Cell Distribution Width 14.9 % (11.5-14.0); White Blood Count 16.8 x10^3/uL (4.0-10.5)
[2022-01-04 17:45] LABS: Appearance CLEAR (CLEAR); Bilirubin NEGATIVE (NEGATIVE); Dipstick done @ ? MAIN LAB; Glucose >=1000 mg/dL (NEGATIVE); Ketones NEGATIVE (NEGATIVE); Nitrite NEGATIVE (NEGATIVE); Protein,Urine Dip NEGATIVE (Negative); RBC NEGATIVE Ery/ul (0-5); Specific Gravity 1.015 (1.005-1.025); Urobilinogen 0.2 mg/dL (0-1)
[2022-01-04 17:47] LABS: RBC 0-2 /HPF (0-2)
[2022-01-04 17:50] LABS: Urine Cultured Indicated? YES
[2022-01-04 18:01] LABS: ALBUMIN 4.5 g/dL (3.5-5.0); ALKALINE PHOSPHATASE 52 U/L (38-126); ANION GAP 15.4 MEQ/L (5-15); BLOOD UREA NITROGEN 13 mg/dL (9-20); CHLORIDE 100 mmol/L (98-107); Calcium 9.8 mg/dL (8.4-10.2); Carbon Dioxide 31 mmol/L (22-30); Creatinine 1 0.92 mg/dL (0.66-1.25); EST GLOMERULAR FILTRATION RATE > 60.0 ML/MIN; Glucose 166 mg/dL (74-106); NT PRO BNP 37.7 pg/mL (0-900); Potassium 4.2 mmol/L (3.5-5.1); SGOT/AST 39 U/L (17-59); SGPT/ALT 25 U/L (0-50); SODIUM 142 mmol/L (137-145); Total Protein 7.6 g/dL (6.3-8.2)
[2022-01-04 18:04] LABS: Group A Strep NOT DETECTED (NEGATIVE)
[2022-01-04] MEDS ORDERED: Merrem 1 GM in Sodium Chloride 100ML MINI-BAG PLUS 100 ML IV ONE (18:13)
[2022-01-04 18:16] LABS: INFLUENZA A NEGATIVE (NEGATIVE); INFLUENZA B NEGATIVE (NEGATIVE); RESPIRATORY SYNCTIAL VIRUS NEGATIVE (Negative); SARS-CoV-2 Xpert Express NEGATIVE (NEGATIVE)
[2022-01-04] MEDS ORDERED: Merrem IV ONE ×2 (18:17→22:21)
[2022-01-04] MEDS ORDERED: Sodium Chloride 100ML MINI-BAG PLUS 100 ML IV ONE ×2 (18:17→22:22)
[2022-01-04 18:58] LABS: ATYPICAL LYMPHS 2 %; BAND 8 % (0.0-2.0); Eosinophil 1 % (0.00-3.0); Lymphocytes 34 % (24-44); Monocyte 5 % (0.0-12.0); Total Cells Counted 100
[2022-01-04 18:59] LABS: Platelet Estimate NORMAL (NORMAL)
[2022-01-04] MEDS ORDERED: Zofran 4 MG/2 ML VIAL IV PRN (20:31)
[2022-01-04] MEDS ORDERED: PROTONIX 40 MG IV IV SCH (20:31)
[2022-01-04] MEDS ORDERED: FEVERALL 650 MG PR PRN (20:31)
[2022-01-04] MEDS ORDERED: Mucomyst 200 MG/ML IH SCH (22:00)
[2022-01-04] MEDS ORDERED: LIPITOR 40MG PO SCH (22:00)
[2022-01-04] MEDS ORDERED: Depakote EXTENDED RELEASE 250 MG PO SCH (22:00)
--- NOTE | 2022-01-04 22:29 | XRAY ---
Indication: Short of breath. Comparison: December 06, 2021. Portable chest again demonstrates bibasilar infiltrates/atelectasis. No effusion. Heart not enlarged. No new cardiopulmonary abnormalities.
[2022-01-04] MEDS: Cymbalta 30 MG Capsule PO SCH (22:35)
[2022-01-04] MEDS: MYSOLINE 50MG PO SCH (22:36)
[2022-01-04] MEDS: Mucinex 600MG ER Tabs PO SCH (22:36)
[2022-01-04] MEDS: NEURONTIN PO SCH (22:36)
[2022-01-04] MEDS: THEOPHYLLINE ER 24HR PO SCH (22:36)
[2022-01-04] MEDS: ZOCOR 20MG PO SCH (22:36)
[2022-01-04] MEDS: TYLENOL EXTRA STRENGTH 500 MG PO PRN (22:37)
[2022-01-04] MEDS: Merrem 1 GM in Sodium Chloride 100ML MINI-BAG PLUS 100 ML IV SCH (22:37)
[2022-01-04] MEDS: Protonix 40MG Tablet PO SCH (22:37)
[2022-01-04] MEDS ORDERED: DUONEB 0.5-3 MG/3 ml Neb IH ONE (22:52)
[2022-01-04] MEDS: DUONEB 0.5-3 MG/3 ml Neb IH SCH (22:54)
[2022-01-05] MEDS: Sodium Chloride 0.9% 1000 ML 1,000 ML IV SCH ×3 (00:37→15:09)
[2022-01-05] MEDS ORDERED: VENTOLIN COMMON CANISTER IH PRN (00:38)
[2022-01-05] MEDS ORDERED: Merrem IV ONE (04:08)
[2022-01-05] MEDS ORDERED: Sodium Chloride 100ML MINI-BAG PLUS 100 ML IV ONE (04:09)
[2022-01-05] MEDS: Merrem 1 GM in Sodium Chloride 100ML MINI-BAG PLUS 100 ML IV SCH ×3 (05:58→22:44)
[2022-01-05] MEDS: TYLENOL EXTRA STRENGTH 500 MG PO PRN (06:02)
[2022-01-05 06:40] LABS: Absolute Neutrophil Ct (ANC) 7.74 x10^3/uL (1.4-6.9); Basophil (Absolute #) 0.02 x10^3/uL (0-0.4); Eosinophil % 0.6 % (0.00-5.0); Hematocrit 36.5 % (42-50); Hemoglobin 11.3 g/dL (12.5-18.0); Lymphocyte (Absolute #) 8.27 x10^3/uL (1.0-4.6); Lymphocytes % 48.6 % (24.0-44.0); Mean Cell Volume 90.6 fL (78-100); Mean Platelet Volume 10.7 fL (7.5-11.0); Monocyte (Absolute #) 0.81 x10^3/uL (0.0-1.3); Monocytes % 4.8 % (0.0-12.0); Neutrophil % 45.5 % (36.0-66.0); Platelet Count 186 x10^3/uL (150-450); Red Blood Count 4.03 x10^6/uL (4.1-5.6); Red Cell Distribution Width 15.2 % (11.5-14.0)
[2022-01-05] MEDS ORDERED: Mucomyst 200 MG/ML IH SCH (07:00)
[2022-01-05] MEDS ORDERED: Spiriva 18 Mcg/Cap Inhaler IH SCH (07:00)
[2022-01-05] MEDS ORDERED: Advair Hfa 115/21 Common canister IH SCH (07:00)
[2022-01-05] MEDS: DUONEB 0.5-3 MG/3 ml Neb IH SCH ×4 (07:10→19:39)
[2022-01-05] MEDS ORDERED: TYLENOL EXTRA STRENGTH 500 MG PO PRN (07:56)
[2022-01-05] MEDS: MYSOLINE 50MG PO SCH (09:18)
[2022-01-05] MEDS: Mucinex 600MG ER Tabs PO SCH ×2 (09:18→22:44)
[2022-01-05] MEDS: Cymbalta 30 MG Capsule PO SCH ×2 (09:18→22:44)
[2022-01-05] MEDS: NEURONTIN PO SCH ×3 (09:18→22:44)
[2022-01-05] MEDS: THEOPHYLLINE ER 24HR PO SCH ×2 (09:18→22:44)
[2022-01-05] MEDS: Protonix 40MG Tablet PO SCH ×2 (09:18→22:44)
[2022-01-05] MEDS ORDERED: POLYMYXIN B SULF OP PRN (09:41)
[2022-01-05] MEDS ORDERED: [UNRECOGNIZED DRUG - OTHER] OP PRN (09:41)
[2022-01-05] MEDS ORDERED: EPINEPHRINE 0.3 MG/0.3 ML IM PRN (09:41)
[2022-01-05] MEDS ORDERED: TRIMETHOPRIM OP PRN (09:41)
[2022-01-05] MEDS ORDERED: DULAGLUTIDE 4.5 MG/0.5 ML SQ SCH (09:45)
[2022-01-05] MEDS ORDERED: PATIENT OWN MEDICATION SQ SCH (10:00)
[2022-01-05] MEDS ORDERED: PATIENT OWN MEDICATION OP PRN (10:12)
[2022-01-05] MEDS: Miralax Powder 17GM PACKET PO SCH (11:05)
[2022-01-05] MEDS: JARDIANCE PO SCH (11:06)
[2022-01-05] MEDS: Lantus Insulin SQ SCH (11:11)
[2022-01-05 15:26] LABS: Eosinophil 2 % (0.00-3.0); Lymphocytes 55 % (24-44); Monocyte 4 % (0.0-12.0); Total Cells Counted 100
[2022-01-05 15:27] LABS: Platelet Estimate NORMAL (NORMAL)
[2022-01-05] MEDS: HUMALOG SQ PRN ×2 (16:25→22:46)
[2022-01-05] MEDS: FLUTICASONE-SALMETEROL 250-50 IH SCH (19:40)
[2022-01-05] MEDS: Mucomyst 200 MG/ML IH SCH (19:43)
[2022-01-05] MEDS: ZOCOR 20MG PO SCH (22:43)
[2022-01-06] MEDS: Sodium Chloride 0.9% 1000 ML 1,000 ML IV SCH (00:55)
[2022-01-06] MEDS: Merrem 1 GM in Sodium Chloride 100ML MINI-BAG PLUS 100 ML IV SCH (05:46)
[2022-01-06] MEDS ORDERED: Spiriva 18 Mcg/Cap Inhaler IH SCH (07:00)
[2022-01-06 07:25] VITALS: BP 118/72
[2022-01-06 07:36] LABS: Basophil (Absolute #) 0.03 x10^3/uL (0-0.4); Eosinophil % 1.4 % (0.00-5.0); Eosinophil (Absolute #) 0.21 x10^3/uL (0-0.5); Hematocrit 35.5 % (42-50); Hemoglobin 11.2 g/dL (12.5-18.0); Lymphocyte (Absolute #) 8.71 x10^3/uL (1.0-4.6); Lymphocytes % 59.9 % (24.0-44.0); Mean Cell Volume 90.3 fL (78-100); Mean Corpuscular Hemoglobin 28.5 pg (26-32); Mean Corpuscular Hgb Concent. 31.5 g/dL (32-36); Mean Platelet Volume 10.2 fL (7.5-11.0); Monocyte (Absolute #) 0.55 x10^3/uL (0.0-1.3); Monocytes % 3.8 % (0.0-12.0); Neutrophil % 34.4 % (36.0-66.0); Platelet Count 185 x10^3/uL (150-450); Red Blood Count 3.93 x10^6/uL (4.1-5.6); Red Cell Distribution Width 15.3 % (11.5-14.0); White Blood Count 14.6 x10^3/uL (4.0-10.5)
[2022-01-06] MEDS: DUONEB 0.5-3 MG/3 ml Neb IH SCH ×2 (07:40→10:41)
[2022-01-06] MEDS: Mucomyst 200 MG/ML IH SCH (07:41)
[2022-01-06] MEDS: FLUTICASONE-SALMETEROL 250-50 IH SCH (07:42)
[2022-01-06 07:56] LABS: ALBUMIN 3.3 g/dL (3.5-5.0); ALKALINE PHOSPHATASE 40 U/L (38-126); ANION GAP 10.9 MEQ/L (5-15); BLOOD UREA NITROGEN 6 mg/dL (9-20); CHLORIDE 108 mmol/L (98-107); Calcium 9.1 mg/dL (8.4-10.2); Carbon Dioxide 26 mmol/L (22-30); EST GLOMERULAR FILTRATION RATE > 60.0 ML/MIN; Glucose 121 mg/dL (74-106); Potassium 3.9 mmol/L (3.5-5.1); SGOT/AST 27 U/L (17-59); SGPT/ALT 19 U/L (0-50); SODIUM 141 mmol/L (137-145)
[2022-01-06] MEDS: JARDIANCE PO SCH (10:08)
[2022-01-06] MEDS: Cymbalta 30 MG Capsule PO SCH (10:08)
[2022-01-06] MEDS: Lantus Insulin SQ SCH (10:08)
[2022-01-06] MEDS: Miralax Powder 17GM PACKET PO SCH (10:09)
[2022-01-06] MEDS: Protonix 40MG Tablet PO SCH (10:10)
[2022-01-06] MEDS: Mucinex 600MG ER Tabs PO SCH (10:10)
[2022-01-06] MEDS: NEURONTIN PO SCH (10:11)
[2022-01-06] MEDS: THEOPHYLLINE ER 24HR PO SCH (10:11)
[2022-01-06 10:44] VITALS: PULSE 98; O2SAT 95
[2022-01-06 16:13] LABS: ATYPICAL LYMPHS 4 %; Eosinophil 2 % (0.00-3.0); Lymphocytes 74 % (24-44); Monocyte 3 % (0.0-12.0); Platelet Estimate NORMAL (NORMAL); Total Cells Counted 100
--- NOTE | 2022-01-08 08:24 | SSS ---
DISCHARGE DIAGNOSES: 1) MONONUCLEOSIS. 2) DEHYDRATION. 3) TACHYCARDIA. HOSPITAL COURSE: HISTORY: The patient is a 66-year-old white male patient who apparently contracted mononucleosis. He was running a high fever initially in the emergency room. He was tachycardic and was felt the need to be having fluids and was admitted to the hospital for further evaluation and management. PAST MEDICAL/SURGICAL HISTORY: His medical history is significant for traumatic brain injury as a child. He takes honey thickened liquids due to problems with aspiration. He has chronic lung problems due to this as well. His chest always sounds somewhat junky, according to the people who have seen him multiple times for admissions to our facility. He also has history of hyperlipidemia, asthma, chronic obstructive pulmonary disease, previous history of pneumonias, diabetes mellitus type II, osteoarthritis, degenerative disc disease. He previously had lumbar fusion. HOME MEDICATIONS: He has a fairly extensive home medication list with a lot of supplements. His medication list includes Advair Diskus 250/50 b.i.d., omeprazole 40 mg b.i.d., Spiriva inhaler daily, Depakote 1,000 mg b.i.d., Cymbalta 60 mg b.i.d., multivitamin, primidone 50 mg t.i.d., Flomax 0.4 mg daily, albuterol HFA 2 puffs every 4 hours PRN, atorvastatin 40 mg a day, loratadine 10 mg a day. He uses Thicken Up to thicken up his liquids. Insulin 40 units in the morning, Jardiance 10 mg a day, aspirin 81 mg a day, oxybutynin extended release 10 mg daily, Acarbose 50 mg t.i.d., calcium tablets, docusate sodium 100 mg twice a day. He takes Levomefolate calcium tablets, MiraLAX 17 gm daily, Trulicity 0.5 mg weekly, guaifenesin extended release 600 mg b.i.d., Polymyxin eye drops, theophylline extended release 400 mg twice a day. ALLERGIES: ADHESIVE TAPE. BEE VENOM. PHYSICAL EXAMINATION: The patient's emergency room vital signs showed his temperature to be 103F, pulse 155, respiratory rate 20 and blood pressure 181/95. His O2 saturation was 90%. He does wear home oxygen as well. HEENT: Showed him to be normocephalic and atraumatic. He is again wearing oxygen per nasal cannula. Oropharynx is slightly dry. NECK: Supple without lymphadenopathy, thyromegaly or JVD. CHEST: Reveals coarse rales bilaterally. No wheezes. HEART: Regular rate and rhythm without murmurs, rubs or gallops. ABDOMEN: Soft, nondistended. No palpable masses. EXTREMITIES: Without cyanosis, clubbing or edema. NEUROLOGIC: The patient is alert and oriented x3 with no focal deficits. LAB DATA AND TESTS: The patient's laboratory studies otherwise showed him to be positive for mononucleosis. His white count was 14.6, hemoglobin 11.2, PLT count 185,000. His glucose on the morning of 01/06/2022 was 121, BUN 6. Electrolytes were essentially normal as were his liver enzymes. He had a portable chest x-ray showing bibasilar infiltrates versus atelectasis. No heart enlargement was noted. HOSPITAL COURSE: He was admitted to the hospital [facility] and placed on IV fluid hydration. He received bolus of fluids in the emergency room which helped bring his heart rate down. He was given antipyretic medication. Since he has been in he had no further fever. He was kept for greater than 24 hours and his temperature max was 99.1F, pulse 105, respiratory rate 17, blood pressure 138/56 and O2 saturation of 94% on his most recent check at 0400 hours on 01/06/2022. The patient was seen on 01/05/2022 and doing much better after his IV infusion and no longer running fever but his sister wished him to stay overnight for further observation so we did so. By the next morning, the patient was eating his breakfast and he was eating everything in sight. He was running no fevers and looking back to his normal self. We therefore felt he was ready for discharge home again to use PRN antipyretic medications and continue his usual home medications otherwise. He will be seen in follow up by Dr. Gomez this coming . He apparently already had an appointment set up for follow up.
== END 2022-01-06 11:22 | disposition home or self-care (01) ==
LOC: ED 16:51 → MED SURG 20:29
PROVIDERS: ADMIT Family Medicine; ATTEND Family Medicine
DX: B27.90 Infectious mononucleosis, unspecified without complication (principal); E86.0 Dehydration; R00.0 Tachycardia, unspecified; E78.5 Hyperlipidemia, unspecified; J44.9 Chronic obstructive pulmonary disease, unspecified; E11.9 Type 2 diabetes mellitus without complications; Z87.820 Personal history of traumatic brain injury; Z20.828 Contact with and (suspected) exposure to other viral communicable diseases; Z79.899 Other long term (current) drug therapy
CPT/HCPCS: 0241U; 36000; 36415; 51702; 71045; 80053; 80164; 80198; 81015; 82947; 83036; 83605; 83880; 84484; 85025; 85379; 86308; 87040; 87086; 87651; 93005; 93041; 93268; 94640; 94760; 96365; 99285; 99291; G0378; J1817; A9270-GY

== ENCOUNTER 2022-01-31 20:39 | Observation (INO) | payer MEDICARE ==
[2022-01-31] MEDS ORDERED: solu-MEDROL 125 MG, Sterile H2O 10 ml 10 ML IV ONE ×2 (20:41)
[2022-01-31] MEDS ORDERED: DUONEB 0.5-3 MG/3 ml Neb IH ONE ×2 (20:41→20:55)
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
[2022-01-31] MEDS ORDERED: solu-MEDROL ONE (21:03)
[2022-01-31] MEDS ORDERED: Sterile H2O 10 ml IJ ONE (21:03)
[2022-01-31 21:16] LABS: Hematocrit 40.9 % (42-50); Hemoglobin 12.7 g/dL (12.5-18.0); Mean Cell Volume 90.1 fL (78-100); Mean Corpuscular Hgb Concent. 31.1 g/dL (32-36); Mean Platelet Volume 10.3 fL (7.5-11.0); Platelet Count 175 x10^3/uL (150-450); Red Blood Count 4.54 x10^6/uL (4.1-5.6); Red Cell Distribution Width 15.4 % (11.5-14.0); White Blood Count 19.4 x10^3/uL (4.0-10.5)
[2022-01-31 21:32] LABS: ALBUMIN 4.1 g/dL (3.5-5.0); ALKALINE PHOSPHATASE 56 U/L (38-126); ANION GAP 14.8 MEQ/L (5-15); BLOOD UREA NITROGEN 13 mg/dL (9-20); CHLORIDE 100 mmol/L (98-107); Calcium 9.7 mg/dL (8.4-10.2); Carbon Dioxide 31 mmol/L (22-30); Creatinine 1 0.85 mg/dL (0.66-1.25); EST GLOMERULAR FILTRATION RATE > 60.0 ML/MIN; Glucose 136 mg/dL (74-106); MAGNESIUM 1.9 mg/dL (1.6-2.3); NT PRO BNP 39.8 pg/mL (0-900); Potassium 4.3 mmol/L (3.5-5.1); SGOT/AST 52 U/L (17-59); SGPT/ALT 27 U/L (0-50); SODIUM 142 mmol/L (137-145); Total Protein 7.1 g/dL (6.3-8.2)
[2022-01-31] MEDS ORDERED: Zithromax 500 MG/ 250 ML NaCl Premix 500 MG/250 ML IVPB IV STA (21:50)
[2022-01-31] MEDS ORDERED: ROCEPHIN 2 Gm-D5w 50ML BAG** 2 G/50 ML IVPB IV STA (21:50)
[2022-01-31 21:52] LABS: INFLUENZA A NEGATIVE (NEGATIVE); INFLUENZA B NEGATIVE (NEGATIVE); RESPIRATORY SYNCTIAL VIRUS NEGATIVE (Negative); SARS-CoV-2 Xpert Express NEGATIVE (NEGATIVE)
[2022-01-31] MEDS ORDERED: ROCEPHIN 2 Gm-D5w 50ML BAG** 2 G/50 ML IVPB IV ONE (21:53)
[2022-01-31] MEDS ORDERED: Zithromax 500 MG/ 250 ML NaCl Premix 500 MG/250 ML IVPB IV ONE (22:14)
[2022-01-31 23:26] LABS: ANISOCYTOSIS 1+; Eosinophil 1 % (0.00-3.0); Lymphocytes 38 % (24-44); Monocyte 6 % (0.0-12.0); Platelet Estimate NORMAL (NORMAL); Total Cells Counted 100
[2022-02-01] MEDS ORDERED: solu-MEDROL ONE ×2 (02:56→16:26)
[2022-02-01] MEDS ORDERED: PROVENTIL 2.5 MG/3 ML NEB IH SCH (03:00)
[2022-02-01] MEDS: solu-MEDROL 60 MG, Sterile H2O 10 ml 2 ML IV SCH ×8 (03:03→17:02)
[2022-02-01 03:36] LABS: ALBUMIN 3.8 g/dL (3.5-5.0); ALKALINE PHOSPHATASE 51 U/L (38-126); ANION GAP 10.6 MEQ/L (5-15); BLOOD UREA NITROGEN 12 mg/dL (9-20); CHLORIDE 101 mmol/L (98-107); Carbon Dioxide 27 mmol/L (22-30); Creatinine 1 0.79 mg/dL (0.66-1.25); EST GLOMERULAR FILTRATION RATE > 60.0 ML/MIN; Glucose 279 mg/dL (74-106); Potassium 4.2 mmol/L (3.5-5.1); SGOT/AST 43 U/L (17-59); SGPT/ALT 26 U/L (0-50); SODIUM 134 mmol/L (137-145); Total Protein 6.8 g/dL (6.3-8.2)
[2022-02-01 04:20] LABS: Hemoglobin 11.6 g/dL (12.5-18.0); Mean Cell Volume 90.9 fL (78-100); Mean Corpuscular Hemoglobin 27.8 pg (26-32); Mean Corpuscular Hgb Concent. 30.5 g/dL (32-36); Mean Platelet Volume 11.3 fL (7.5-11.0); Platelet Count 175 x10^3/uL (150-450); Red Blood Count 4.18 x10^6/uL (4.1-5.6); Red Cell Distribution Width 15.4 % (11.5-14.0); White Blood Count 20.6 x10^3/uL (4.0-10.5)
[2022-02-01] MEDS: DUONEB 0.5-3 MG/3 ml Neb IH SCH ×4 (06:46→19:21)
[2022-02-01] MEDS: Advair Hfa 115/21 Common canister IH SCH ×2 (06:47→19:22)
[2022-02-01] MEDS: Spiriva 18 Mcg/Cap Inhaler IH SCH ×2 (06:47→08:59)
[2022-02-01] MEDS ORDERED: Mucinex 600MG ER Tabs PO PRN ×2 (07:18→11:45)
[2022-02-01] MEDS ORDERED: NON-FORMULARY ITEM (Omeprazole [Omeprazole] 40 MG Capsule.Dr) PO SCH (07:30)
[2022-02-01] MEDS ORDERED: POLYMYXIN B SULF OP SCH (07:30)
[2022-02-01] MEDS ORDERED: TRIMETHOPRIM OP SCH (07:30)
[2022-02-01] MEDS ORDERED: [UNRECOGNIZED DRUG - OTHER] OP SCH (07:30)
[2022-02-01] MEDS ORDERED: [UNRECOGNIZED DRUG - OTHER] PO SCH (07:30)
[2022-02-01] MEDS ORDERED: MEDICATION INTERVENTION MC SCH ×4 (08:00)
[2022-02-01] MEDS: Miralax Powder 17GM PACKET PO SCH (08:46)
[2022-02-01] MEDS: VITAMIN D PO SCH (08:47)
[2022-02-01] MEDS: Docusate Sodium 100 MG PO SCH ×2 (08:47→22:13)
[2022-02-01] MEDS: ECOTRIN 81 MG PO SCH (08:47)
[2022-02-01] MEDS: Cymbalta 30 MG Capsule PO SCH ×2 (08:47→22:13)
[2022-02-01] MEDS: MYSOLINE 50MG PO SCH ×3 (08:52→22:13)
[2022-02-01] MEDS: NEURONTIN PO SCH ×3 (08:52→22:13)
[2022-02-01] MEDS: Ditropan XL 5 MG PO SCH (08:52)
[2022-02-01] MEDS: THERAGRAN MULTIVITAMIN PO SCH (08:54)
[2022-02-01] MEDS: Flomax 0.4 MG PO SCH (08:54)
[2022-02-01] MEDS: Calcium 500MG W/Vit D Tablet PO SCH ×3 (08:54→22:15)
[2022-02-01] MEDS: TYLENOL EXTRA STRENGTH 500 MG PO SCH ×3 (08:54→22:14)
[2022-02-01] MEDS: CLARITIN 10 MG PO SCH (08:54)
[2022-02-01] MEDS: JARDIANCE PO SCH (08:55)
[2022-02-01] MEDS: Lantus Insulin SQ SCH (08:55)
[2022-02-01] MEDS: THEOPHYLLINE ER 24HR PO SCH ×2 (08:59→22:16)
--- NOTE | 2022-02-01 09:17 | XRAY ---
Indication: Left chest and abdomen pain. Fever, chills, and cough. Multiple contiguous images obtained through the chest using 100 cc Isovue 370 contrast and PE protocol. Comparison: December 02, 2021. Adequate opacification of the pulmonary arteries to include the lobar and segmental branches. Mild respiration artifact limits evaluation for pulmonary embolus. No pulmonary embolus. Heart not enlarged. Aorta remains normal in course and caliber. No pathologic mediastinal/hilar lymphadenopathy. Lungs again demonstrates bilateral mid to lower lung patchy consolidating/nonconsolidating airspace disease mildly improved. New patchy left upper lobe airspace disease. No effusion. Bony thorax intact again with mild degenerative changes throughout the spine. CT abdomen/pelvis reported separately. Impression: 1. Negative pulmonary embolus. 2. Interval improving bilateral consolidating/nonconsolidating airspace disease with new focus left upper lobe. Comment: Preliminary interpretation made by C. No critical discrepancy.
--- NOTE | 2022-02-01 09:23 | XRAY ---
Indication: Left chest and abdomen pain. Fever, chills, and cough. Multiple contiguous images obtained through the abdomen and pelvis using 100 cc Isovue 370 contrast and PE protocol. Comparison: December 12, 2020. CT chest reported separately. Noncontrasted stomach and bowel loops nonobstructed. There is worsening moderate diffuse scattered colonic fecal debris throughout. 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 Normal appendix. No free fluid/air. Both kidneys enhance and excrete. Left lower kidney again demonstrate 1.1 cm enhancing exophytic mass. Spleen remains enlarged today measuring 15 cm. Remaining liver, gallbladder, pancreas, spleen, adrenal glands, kidneys, ureters, and bladder are unremarkable. Stable minimal aortoiliac calcifications. No AAA or pathologic retroperitoneal lymphadenopathy. Osseous structures intact again with mild degenerative changes to the spine and L2-S1 fusion surgery with intact bilateral posterior fusion hardware. Stable grade 1 L4 anterolisthesis and mild levoscoliosis. Stable small fatty right inguinal hernia. Impression: 1. Continued worsening diffuse fecal stasis. 2. 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 3. Stable 1.1 cm left lower renal exophytic enhancing mass concerning for malignancy. 4. Again chronic findings including splenomegaly, fatty right inguinal hernia, and chronic bony findings. Comment: Preliminary interpretation made by C. No critical discrepancy.
--- NOTE | 2022-02-01 09:23 | XRAY ---
Indication: Chills. Pneumonia. Comparison: January 04, 2022. Portable apical lordotic chest demonstrates moderate clearing of previous bibasilar infiltrates/atelectasis. Remaining heart and lungs unremarkable. No new/acute findings.
[2022-02-01] MEDS ORDERED: NON-FORMULARY ITEM (Multivitamin [Multivitamins] 1 EACH Capsule) PO SCH (10:00)
[2022-02-01] MEDS ORDERED: ACARBOSE 50 MG PO SCH (10:00)
[2022-02-01] MEDS ORDERED: NON-FORMULARY ITEM (Aspirin [Aspirin] 81 MG Tablet) PO SCH (10:00)
[2022-02-01] MEDS ORDERED: DEXTROMETHORPHAN HBR 15 MG PO SCH (10:00)
[2022-02-01] MEDS ORDERED: NON-FORMULARY ITEM (Duloxetine Hcl [Cymbalta] 60 MG Capsule.Dr) PO SCH (10:00)
[2022-02-01] MEDS ORDERED: CALCIUM CARBONATE PO SCH (10:00)
[2022-02-01] MEDS ORDERED: NON-FORMULARY ITEM (Oxybutynin Chloride [Oxybutynin Chloride Er] 10 MG Tab.Er.24) PO SCH (10:00)
[2022-02-01] MEDS ORDERED: [UNRECOGNIZED DRUG - OTHER] PO SCH (10:00)
[2022-02-01] MEDS ORDERED: LEVOMEFOLATE CALCIUM 7.5 MG PO SCH (10:00)
[2022-02-01] MEDS ORDERED: NON-FORMULARY ITEM (Divalproex Sodium [Depakote] 500 MG Tablet.Dr) PO SCH (10:00)
[2022-02-01] MEDS ORDERED: VITAMIN D3 PO SCH (10:00)
[2022-02-01] MEDS ORDERED: ENOXAPARIN SODIUM SQ ONE (11:03)
[2022-02-01] MEDS: ENOXAPARIN SODIUM SQ SCH (11:15)
[2022-02-01] MEDS: HUMALOG SQ PRN ×3 (11:51→22:23)
[2022-02-01] MEDS: PATIENT OWN MEDICATION PO SCH ×2 (14:15→22:15)
[2022-02-01] MEDS: Protonix 40MG Tablet PO SCH (16:28)
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
[2022-02-01] MEDS ORDERED: LIPITOR 40MG PO SCH (22:00)
[2022-02-01] MEDS: ZOCOR 20MG PO SCH (22:14)
[2022-02-01] MEDS ORDERED: Sodium Chloride 0.9% 500 ML 500 ML IV ONE (22:34)
[2022-02-01] MEDS: ROCEPHIN 1 Gm-D5w 50 ml Bag** 1 G/50 ML IVPB IV SCH (22:38)
[2022-02-01] MEDS: Zithromax 500 MG/ 250 ML NaCl Premix 500 MG/250 ML IVPB IV SCH (22:39)
[2022-02-02] MEDS: solu-MEDROL 60 MG, Sterile H2O 10 ml 2 ML IV SCH ×8 (00:15→17:19)
[2022-02-02] MEDS: DUONEB 0.5-3 MG/3 ml Neb IH SCH ×4 (07:29→19:15)
[2022-02-02] MEDS: Advair Hfa 115/21 Common canister IH SCH ×2 (07:34→19:17)
[2022-02-02] MEDS: Spiriva 18 Mcg/Cap Inhaler IH SCH (07:35)
--- NOTE | 2022-02-02 08:02 | PCM.NOTE ---
Date and Time: 02/02/22 08 Subjective Assessment: doing ok - Review of Systems Constitutional: No Fever, No Chills Eyes: No Symptoms Ears, Nose, & Throat: No Symptoms Respiratory: No Cough, No Short Of Breath Cardiac: No Chest Pain, No Edema, No Syncope Abdominal/Gastrointestinal: No Abdominal Pain, No Nausea, No Vomiting, No Diarrhea Genitourinary Symptoms: No Dysuria Musculoskeletal: No Back Pain, No Neck Pain Skin: No Rash Neurological: No Dizziness, No Focal Weakness, No Sensory Changes Psychological: No Symptoms Endocrine: No Symptoms Hematologic/Lymphatic: No Symptoms Immunological/Allergic: No Symptoms Objective Exam General Appearance: no apparent distress, alert Neurologic Exam: alert, oriented x 3, cooperative, normal mood/affect, nml cerebellar function, sensation nml, No motor deficits Skin Exam: normal color, warm, dry Eye Exam: PERRL, EOMI, eyes nml inspection Ears, Nose, Throat Exam: normal ENT inspection, pharynx normal, moist mucous membranes Neck Exam: normal inspection, non-tender, supple, full range of motion Respiratory Exam: normal breath sounds, lungs clear, No respiratory distress Cardiovascular Exam: regular rate/rhythm, normal heart sounds Gastrointestinal/Abdomen Exam: soft, No tenderness, No mass Extremity Exam: normal inspection, normal range of motion Back Exam: normal inspection, normal range of motion, No CVA tenderness, No vertebral tenderness Male Genitalia Exam: deferred Rectal Exam: deferred OBJECTIVE DATA Vital Signs: Vital Signs - 24 hr Temp Pulse Resp BP BP Pulse Ox 02/02/22 07:30 78 20 98 02/02/22 07:20 97.7 F 81 20 143/70 96 02/02/22 03:52 97.5 F 86 18 142/65 94 L 02/02/22 00:00 98.6 F 99 H 16 144/65 94 L 02/01/22 20:00 97.5 F 88 19 123/71 95 02/01/22 19:22 88 20 95 02/01/22 16:00 97.1 F 91 H 23 131/60 92 L 02/01/22 14:46 83 16 94 L 02/01/22 12:00 97.1 F 88 18 132/61 99 02/01/22 10:44 86 20 97 Pain Assessment - Last Documented Pain Intensity 0 Pain [facility] Intake and Output: Intake & Output 01/30/22 01/31/22 02/01/22 02/02/22 11:59 11:59 11:59 11:59 Intake Total 740 4098 Output Total 225 4200 Balance 515 -102 Weight 79.9 kg 81.4 kg Lab Results: Lab Results-Last 24 Hours 02/01/22 02/01/22 02/01/22 Range/Units 08:51 11:40 16:17 POC Glucometer 365 H 384 H (74 to 106) mg/dL Troponin I < 0.012 (0.000-0.034) ng/mL 02/01/22 02/02/22 Range/Units 21:17 06:50 POC Glucometer 303 H 174 H (74 to 106) mg/dL Troponin I (0.000-0.034) ng/mL Radiology Exams: Radiology Procedures Category Date Time Status ABDOMEN AND PELVIS W CONTRAST [CT] Stat Exams 01/31/22 23:28 Completed CHEST 1 VIEW (PORTABLE) Stat Exams 01/31/22 20:42 Completed CHEST WITH CONTRAST [CT] Stat Exams 01/31/22 23:13 Completed Assessment/Plan (1) COPD exacerbation Current Visit: Yes Status: Acute Code(s): J44.1 - CHRONIC OBSTRUCTIVE PULMONARY DISEASE W (ACUTE) EXACERBATION (2) COPD (chronic obstructive pulmonary disease) Current Visit: No Status: Chronic Qualifiers: COPD type: chronic bronchitis Chronic bronchitis type: mixed simple and mucopurulent Qualified Code(s): J41.8 - Mixed simple and mucopurulent chronic bronchitis (3) Diabetes type 2, uncontrolled Current Visit: No Status: Chronic Qualifiers: Glycemic state: with hyperglycemia Qualified Code(s): E11.65 - Type 2 diabetes mellitus with hyperglycemia Code(s): E11.65 - TYPE 2 DIABETES MELLITUS WITH HYPERGLYCEMIA
[2022-02-02] MEDS: ENOXAPARIN SODIUM SQ SCH (08:54)
[2022-02-02] MEDS: Cymbalta 30 MG Capsule PO SCH ×2 (08:55→22:14)
[2022-02-02] MEDS: VITAMIN D PO SCH (08:55)
[2022-02-02] MEDS: MYSOLINE 50MG PO SCH ×3 (08:55→22:15)
[2022-02-02] MEDS: Lantus Insulin SQ SCH (08:55)
[2022-02-02] MEDS: TYLENOL EXTRA STRENGTH 500 MG PO SCH ×3 (08:55→22:14)
[2022-02-02] MEDS: Ditropan XL 5 MG PO SCH (08:55)
[2022-02-02] MEDS: Miralax Powder 17GM PACKET PO SCH (08:55)
[2022-02-02] MEDS: NEURONTIN PO SCH ×3 (08:56→22:14)
[2022-02-02] MEDS: Flomax 0.4 MG PO SCH (08:56)
[2022-02-02] MEDS: CLARITIN 10 MG PO SCH (08:56)
[2022-02-02] MEDS: ECOTRIN 81 MG PO SCH (08:57)
[2022-02-02] MEDS: THERAGRAN MULTIVITAMIN PO SCH (08:57)
[2022-02-02] MEDS: PATIENT OWN MEDICATION PO SCH ×2 (08:58→22:13)
[2022-02-02] MEDS: Protonix 40MG Tablet PO SCH ×2 (08:58→15:08)
[2022-02-02] MEDS: THEOPHYLLINE ER 24HR PO SCH ×2 (08:58→22:14)
[2022-02-02] MEDS: Calcium 500MG W/Vit D Tablet PO SCH ×3 (08:58→22:14)
[2022-02-02] MEDS: JARDIANCE PO SCH (08:59)
[2022-02-02] MEDS: Docusate Sodium 100 MG PO SCH ×2 (08:59→22:14)
[2022-02-02] MEDS ORDERED: ENOXAPARIN SODIUM SQ SCH (10:00)
[2022-02-02] MEDS ORDERED: solu-MEDROL ONE ×2 (11:31→17:18)
[2022-02-02] MEDS: HUMALOG SQ PRN ×2 (11:40→16:56)
[2022-02-02] MEDS: Zithromax 500 MG/ 250 ML NaCl Premix 500 MG/250 ML IVPB IV SCH (22:14)
[2022-02-02] MEDS: ROCEPHIN 1 Gm-D5w 50 ml Bag** 1 G/50 ML IVPB IV SCH (22:14)
[2022-02-02] MEDS: ZOCOR 20MG PO SCH (22:15)
[2022-02-03] MEDS: solu-MEDROL 60 MG, Sterile H2O 10 ml 2 ML IV SCH ×6 (00:50→12:00)
[2022-02-03] MEDS ORDERED: solu-MEDROL ONE ×2 (01:18→06:04)
[2022-02-03] MEDS: HUMALOG SQ PRN (01:47)
--- NOTE | 2022-02-03 07:07 | PCM.NOTE ---
Date and Time: 02/03/22705 Subjective Assessment: doing ok - Review of Systems Constitutional: No Fever, No Chills Eyes: No Symptoms Ears, Nose, & Throat: No Symptoms Respiratory: No Cough, No Short Of Breath Cardiac: No Chest Pain, No Edema, No Syncope Abdominal/Gastrointestinal: No Abdominal Pain, No Nausea, No Vomiting, No Diarrhea Genitourinary Symptoms: No Dysuria Musculoskeletal: No Back Pain, No Neck Pain Skin: No Rash Neurological: No Dizziness, No Focal Weakness, No Sensory Changes Psychological: No Symptoms Endocrine: No Symptoms Hematologic/Lymphatic: No Symptoms Immunological/Allergic: No Symptoms Objective Exam General Appearance: no apparent distress, alert Neurologic Exam: alert, oriented x 3, cooperative, normal mood/affect, nml cerebellar function, sensation nml, No motor deficits Skin Exam: normal color, warm, dry Eye Exam: PERRL, EOMI, eyes nml inspection Ears, Nose, Throat Exam: normal ENT inspection, pharynx normal, moist mucous membranes Neck Exam: normal inspection, non-tender, supple, full range of motion Respiratory Exam: diminished breath sounds, crackles/rales, rhonchi, wheezing, No respiratory distress Cardiovascular Exam: regular rate/rhythm, normal heart sounds Gastrointestinal/Abdomen Exam: soft, No tenderness, No mass Extremity Exam: normal inspection, normal range of motion Back Exam: normal inspection, normal range of motion, No CVA tenderness, No vertebral tenderness Male Genitalia Exam: deferred Rectal Exam: deferred OBJECTIVE DATA Vital Signs: Vital Signs - 24 hr Temp Pulse Resp BP BP Pulse Ox 02/03/22 06:35 97.5 F 85 23 158/75 95 02/03/22 04:00 96.6 F 67 16 158/83 94 L 02/03/22 00:00 97.1 F 81 20 164/74 97 02/02/22 20:00 97.7 F 89 18 136/60 92 L 02/02/22 19:15 87 20 92 L 02/02/22 16:00 98 F 90 18 138/65 93 L 02/02/22 15:38 95 H 20 92 L 02/02/22 11:30 79 20 97 02/02/22 11:24 97.7 F 82 18 134/61 96 02/02/22 07:30 78 20 98 02/02/22 07:20 97.7 F 81 20 143/70 96 Pain Assessment - Last Documented Pain Intensity 0 Pain Scale Used 0-10 Pain Scale Intake and Output: Intake & Output 01/31/22 02/01/22 02/02/22 02/03/22 11:59 11:59 11:59 11:59 Intake Total 740 5258 1800 Output Total 881 4840 6729 Balance 515 33 -1225 Weight 79.9 kg 81.4 kg 82.2 kg Lab Results: Lab Results-Last 24 Hours 02/02/22 02/02/22 02/02/22 Range/Units 11:23 16:24 20:28 POC Glucometer 240 H 255 H 404 H (74 to 106) mg/dL 02/03/22 02/03/22 Range/Units 01:38 06:28 POC Glucometer 219 H 197 H (74 to 106) mg/dL Assessment/Plan (1) COPD exacerbation Current Visit: Yes Status: Acute Assessment & Plan: Chief Complaint Diagnosis COPD exacerbation hypoxia Allergies Allergy/AdvReac Type Severity Reaction Status Date / Time adhesive tape Allergy Verified 01/04/22 16:54 bee venom protein (honey bee) Allergy Verified 01/04/22 16:54 Vital Signs (Last 24 hours) Temp Pulse Resp BP BP Pulse Ox 02/03/22 06:35 97.5 F 85 23 158/75 95 02/03/22 04:00 96.6 F 67 16 158/83 94 L 02/03/22 00:00 97.1 F 81 20 164/74 97 02/02/22 20:00 97.7 F 89 18 136/60 92 L 02/02/22 19:15 87 20 92 L 02/02/22 16:00 98 F 90 18 138/65 93 L 02/02/22 15:38 95 H 20 92 L 02/02/22 11:30 79 20 97 02/02/22 11:24 97.7 F 82 18 134/61 96 02/02/22 07:30 78 20 98 02/02/22 07:20 97.7 F 81 20 143/70 96 Home Medications Medication Instructions Recorded Confirmed Last Taken Type Calcium Carbonate/Vitamin D3 1 tab PO TID 01/31/22 01/31/22 01/31/22 History [Calcium 600 mg-D3 10 Mcg Sfgl] Dextromethorphan HBr [Tussin Cough] 1 cap PO BID 01/31/22 01/31/22 Unknown History Insulin Lispro [Humalog Kwikpen 0 units SQ UD 01/31/22 01/31/22 Unknown History [id number]] Tamsulosin HCl 0.4 mg [Flomax 0.4 mg PO DAILY 01/31/22 01/31/22 01/31/22 History 0.4 MG] Current Medications Generic Name Dose Route Start Last Admin Trade Name Tianna PRN Reason Stop Dose Admin Acetaminophen 500 mg 02/01/22 10:00 02/02/22 22:14 Acetaminophen 500 Mg Tablet PO 03/03/22 09:59 500 mg TID AUNG Administration Albuterol/Ipratropium 3 ml 02/01/22 07:00 02/02/22 19:15 Ipratropium/Albuterol Sulfate 3 Ml Ampul.Neb IH 03/03/22 06:59 3 ml QIDRT AUNG Administration Aspirin 81 mg 02/01/22 10:00 02/02/22 08:57 Aspirin 81 Mg Tablet.Ec PO 03/03/22 09:59 81 mg DAILY AUNG Administration Calcium Carbonate 1 tab 02/01/22 10:00 02/02/22 22:14 Calcium Carbonate 500 Mg/Vitamin D 1 Tab Tablet PO 03/03/22 09:59 1 tab TID AUNG Administration Cholecalciferol 1,000 unit 02/01/22 10:00 02/02/22 08:55 Cholecalciferol (Vitamin D3) 1000 Unit Tablet PO 03/03/22 09:59 1,000 unit DAILY AUNG Administration Methylprednisolone Sodium 0 mg 02/01/22 01:30 02/03/22 06:23 Succinate 60 mg/ Sterile Water IV 03/03/22 01:29 60 mg 2 ml Q6HT AUNG Administration Divalproex Sodium 1,000 mg 02/01/22 10:00 02/02/22 22:15 Divalproex Sodium 250 Mg Tablet Delayed Release PO 03/03/22 09:59 1,000 mg BID AUNG Administration Docusate Sodium 100 mg 02/01/22 10:00 02/02/22 22:14 Docusate Sodium 100 Mg Capsule PO 03/03/22 09:59 100 mg BID AUNG Administration Duloxetine HCl 60 mg 02/01/22 10:00 02/02/22 22:14 Duloxetine Hcl 30 Mg Cap PO 03/03/22 09:59 60 mg BID AUNG Administration Empagliflozin 10 mg 02/01/22 10:00 02/02/22 08:59 Empagliflozin 10 Mg Tablet PO 03/03/22 09:59 10 mg DAILY AUNG Administration Enoxaparin Sodium 40 mg 02/01/22 11:00 02/02/22 08:54 Enoxaparin Sodium 40 Mg/0.4 Ml Syringe SQ 03/03/22 10:59 40 mg DAILY AUNG Administration Gabapentin 300 mg 02/01/22 10:00 02/02/22 22:14 Gabapentin 300 Mg Capsule PO 03/03/22 09:59 300 mg TID AUNG Administration Guaifenesin 600 mg 02/01/22 11:45 Guaifenesin 600 Mg Tablet Er PO 03/03/22 07:17 BID PRN PRN congestion Ceftriaxone Sodium/Dextrose 1 g in 50 mls @ 100 mls/hr 02/01/22 22:00 02/02/22 22:14 Rocephin 1 Gm-D5w 50 Ml Bag IV 02/04/22 21:59 100 mls/hr HS AUNG Administration Azithromycin 500 mg in 250 mls @ 250 mls/hr 02/01/22 22:00 02/02/22 22:14 Zithromax 500 Mg/ 250 Ml Nacl Premix IV 03/03/22 21:59 250 mls/hr HS AUNG Administration Insulin Glargine 40 unit 02/01/22 10:00 02/02/22 08:55 Insulin Glargine 1 Unit SQ 03/03/22 09:59 40 unit QAM AUNG Administration Insulin Human Lispro 0 unit 02/01/22 03:34 02/03/22 01:47 Insulin Lispro 1 Unit SQ 03/03/22 03:33 6 unit UD PRN Administration HYPERGLYCEMIA Loratadine 10 mg 02/01/22 10:00 02/02/22 08:56 Loratadine 10 Mg Tablet PO 03/03/22 09:59 10 mg DAILY AUNG Administration Miscellaneous Information 1 each 02/01/22 08:00 Medication Intervention 1 Each Each 03/03/22 07:59 .RN TO CHECK AUNG Miscellaneous Information 1 each 02/01/22 08:00 Medication Intervention 1 Each Each 03/03/22 07:59 .RN TO CHECK AUNG Miscellaneous Information 1 each 02/01/22 08:00 Medication Intervention 1 Each Each 03/03/22 07:59 .RN TO CHECK AUNG Multivitamins Therapeutic 1 tab 02/01/22 10:00 02/02/22 08:57 Multivitamins,Therapeutic 1 Tab Tab PO 03/03/22 09:59 1 tab DAILY AUNG Administration Oxybutynin Chloride 10 mg 02/01/22 10:00 02/02/22 08:55 Oxybutynin Chloride Xl 5 Mg Tab PO 03/03/22 09:59 10 mg DAILY AUNG Administration Pantoprazole Sodium 40 mg 02/01/22 16:30 02/02/22 15:08 Protonix (Pantoprazole) 40 Mg Tablet PO 03/03/22 16:29 40 mg BIDAC AUNG Administration L-Methylfolate 1 each 02/01/22 14:00 02/02/22 22:13 PO 03/03/22 13:59 1 each BID AUNG Administration Polyethylene Glycol 17 gm 02/01/22 10:00 02/02/22 08:55 Polyethylene Glycol 3350 17 Gm Packet PO 03/03/22 09:59 17 gm DAILY AUNG Administration Primidone 50 mg 02/01/22 10:00 02/02/22 22:15 Primidone 50 Mg Tablet PO 03/03/22 09:59 50 mg TID AUNG Administration Fluticasone/Salmeterol 2 puff 02/01/22 07:00 02/02/22 19:17 Fluticasone/Salmeterol 115/21 - 120 Puff Common Canister IH 03/03/22 06:59 2 puff BIDRT AUNG Administration Simvastatin 40 mg 02/01/22 22:00 02/02/22 22:15 Simvastatin 20 Mg Tablet PO 03/03/22 21:59 40 mg HS AUNG Administration Tamsulosin HCl 0.4 mg 02/01/22 10:00 02/02/22 08:56 Tamsulosin Hcl 0.4 Mg Cap PO 03/03/22 09:59 0.4 mg DAILY AUNG Administration Theophylline 400 mg 02/01/22 10:00 02/02/22 22:14 Theophylline Anhydrous 400 Mg Tab.Er.24hr Tablet PO 03/03/22 09:59 400 mg BID AUNG Administration Tiotropium [place] 1 ea 02/01/22 07:00 02/02/22 07:35 Tiotropium [place] 18 Mcg/Cap Inhaler 03/03/22 06:59 1 ea DAILY AUNG Administration Discontinued Medications Generic Name Dose Route Start Last Admin Trade Name Tianna PRN Reason Stop Dose Admin Albuterol Sulfate 2.5 mg 02/01/22 03:00 02/01/22 04:52 Albuterol Sulfate 2.5 Mg/3 Ml [facility] 03/03/22 02:59 Not Given Q4HRT [facility] Albuterol/Ipratropium 3 ml 01/31/22 20:41 01/31/22 21:06 Ipratropium/Albuterol Sulfate 3 Ml Ampul.Neb 01/31/22 20:42 3 ml STAT ONE Administration Albuterol/Ipratropium Confirm 01/31/22 20:55 Ipratropium/Albuterol Sulfate 3 Ml Ampul.Neb Administered 01/31/22 20:56 Dose 3 ml IH .STK-MED ONE Methylprednisolone Sodium 0 mg 01/31/22 20:41 01/31/22 21:05 Succinate 125 mg/ Sterile IV 01/31/22 20:42 125 mg Water 10 ml STAT ONE Administration Enoxaparin Sodium 40 mg 02/02/22 10:00 02/01/22 11:04 Enoxaparin Sodium 40 Mg/0.4 Ml Syringe SQ 03/04/22 09:59 40 mg DAILY AUNG Administration Enoxaparin Sodium Confirm 02/01/22 11:03 Enoxaparin Sodium 40 Mg/0.4 Ml Syringe Administered 02/01/22 11:04 Dose 40 mg SQ .STK-MED ONE Guaifenesin 600 mg 02/01/22 07:18 02/01/22 08:47 Guaifenesin 600 Mg Tablet Er PO 03/03/22 07:17 600 mg BID PRN Administration congestion Ceftriaxone Sodium/Dextrose 2 g in 50 mls @ 100 mls/hr 01/31/22 21:50 01/31/22 22:25 Rocephin 2 Gm-D5w 50ml Bag IV 01/31/22 22:19 Infused STAT STA Infusion Azithromycin 500 mg in 250 mls @ 250 mls/hr 01/31/22 21:50 01/31/22 22:17 Zithromax 500 Mg/ 250 Ml Nacl Premix IV 01/31/22 22:49 250 ml/hr STAT STA 250 mls/hr Administration Ceftriaxone Sodium/Dextrose Confirm 01/31/22 21:53 Rocephin 2 Gm-D5w 50ml Bag Administered 01/31/22 21:54 Dose 2 g in 50 mls @ ud IV .STK-MED ONE Azithromycin Confirm 01/31/22 22:14 Zithromax 500 Mg/ 250 Ml Nacl Premix Administered 01/31/22 22:15 Dose 500 mg in 250 mls @ IV .STK-MED ONE Sodium Chloride Confirm 02/01/22 22:34 Sodium Chloride 0.9% 500 Ml Administered 02/01/22 22:35 Dose 500 mls @ ud IV .STK-MED ONE Methylprednisolone Sodium Succinate Confirm 01/31/22 21:03 Methylprednis Sod Succ 125 Mg/2 Ml Vial Administered 01/31/22 21:04 Dose 125 mg .ROUTE .STK-MED ONE Methylprednisolone Sodium Succinate Confirm 02/01/22 02:56 Methylprednis Sod Succ 125 Mg/2 Ml Vial Administered 02/01/22 02:57 Dose 125 mg .ROUTE .STK-MED ONE Methylprednisolone Sodium Succinate Confirm 02/01/22 16:26 Methylprednis Sod Succ 125 Mg/2 Ml Vial Administered 02/01/22 16:27 Dose 125 mg .ROUTE .STK-MED ONE Methylprednisolone Sodium Succinate Confirm 02/02/22 11:31 Methylprednis Sod Succ 125 Mg/2 Ml Vial Administered 02/02/22 11:32 Dose 125 mg .ROUTE .STK-MED ONE Methylprednisolone Sodium Succinate Confirm 02/02/22 17:18 Methylprednis Sod Succ 125 Mg/2 Ml Vial Administered 02/02/22 17:19 Dose 125 mg .ROUTE .STK-MED ONE Methylprednisolone Sodium Succinate Confirm 02/03/22 01:18 Methylprednis Sod Succ 125 Mg/2 Ml Vial Administered 02/03/22 01:19 Dose 125 mg .ROUTE .STK-MED ONE Methylprednisolone Sodium Succinate Confirm 02/03/22 06:04 Methylprednis Sod Succ 125 Mg/2 Ml Vial Administered 02/03/22 06:05 Dose 125 mg .ROUTE .STK-MED ONE Miscellaneous Information 1 each 02/01/22 08:00 Medication Intervention 1 Each Each 03/03/22 07:59 .RN TO CHECK AUNG Non-Formulary Medication 1 packet 02/01/22 07:30 07/08/22 08:13 Maltodextrin/Xanthan Gum [Thicken Up Clear Powder Packet] PO 03/03/22 07:29 Not Given ACHS AUNG Sterile Water Confirm 01/31/22 21:03 Water For Injection,Sterile 10 Ml Vial Administered 01/31/22 21:04 Dose 10 ml IJ .STK-MED ONE Intake & Output (Last 24 hours) 01/31/22 02/01/22 02/02/22 02/03/22 11:59 11:59 11:59 11:59 Intake Total 740 5258 1800 Output Total 225 5225 3025 Balance 515 33 -1225 Weight 79.9 kg 81.4 kg 82.2 kg Microbiology Results (Last 24 hours) 02/01/22 Unknown Sputum - Expectorant Gram Stain - Pending 02/01/22 Unknown Sputum - Expectorant Sputum Culture - Pending Laboratory Results (Last 24 hours) 02/03/22 02/03/22 02/02/22 06:28 01:38 20:28 POC Glucometer 197 H 219 H 404 H 02/02/22 02/02/22 16:24 11:23 POC Glucometer 255 H 240 H Orders (Last 24 hours) Category Date Time Status POCT GLUCOSE Stat Lab 02/02/22 06:50 Completed POCT GLUCOSE Stat Lab 02/02/22 11:23 Completed POCT GLUCOSE Stat Lab 02/02/22 16:24 Completed POCT GLUCOSE Stat Lab 02/02/22 20:28 Completed POCT GLUCOSE Stat Lab 02/03/22 01:38 Completed POCT GLUCOSE Stat Lab 02/03/22 06:28 Completed Enoxaparin Sodium [Enoxaparin Sodium] Med 02/02/22 10:00 Discontinued 40 mg SQ DAILY Methylprednis Sod Succ 125 mg* [solu-MEDROL] Med 02/02/22 11:31 Discontinued 125 mg .ROUTE .STK-MED ONE Methylprednis Sod Succ 125 mg* [solu-MEDROL] Med 02/02/22 17:18 Discontinued 125 mg .ROUTE .STK-MED ONE Methylprednis Sod Succ 125 mg* [solu-MEDROL] Med 02/03/22 01:18 Discontinued 125 mg .ROUTE .STK-MED ONE Methylprednis Sod Succ 125 mg* [solu-MEDROL] Med 02/03/22 06:04 Discontinued 125 mg .ROUTE .STK-MED ONE Code(s): J44.1 - CHRONIC OBSTRUCTIVE PULMONARY DISEASE W (ACUTE) EXACERBATION (2) COPD (chronic obstructive pulmonary disease) Current Visit: No Status: Chronic Qualifiers: COPD type: chronic bronchitis Chronic bronchitis type: mixed simple and mucopurulent Qualified Code(s): J41.8 - Mixed simple and mucopurulent chronic bronchitis (3) Diabetes type 2, uncontrolled Current Visit: No Status: Chronic Qualifiers: Glycemic state: with hyperglycemia Qualified Code(s): E11.65 - Type 2 diabetes mellitus with hyperglycemia Code(s): E11.65 - TYPE 2 DIABETES MELLITUS WITH HYPERGLYCEMIA
[2022-02-03] MEDS: DUONEB 0.5-3 MG/3 ml Neb IH SCH ×2 (07:30→10:26)
[2022-02-03] MEDS: Spiriva 18 Mcg/Cap Inhaler IH SCH (07:32)
[2022-02-03] MEDS: Advair Hfa 115/21 Common canister IH SCH (07:32)
[2022-02-03] MEDS: Docusate Sodium 100 MG PO SCH (08:07)
[2022-02-03] MEDS: ECOTRIN 81 MG PO SCH (08:07)
[2022-02-03] MEDS: Cymbalta 30 MG Capsule PO SCH (08:07)
[2022-02-03] MEDS: Calcium 500MG W/Vit D Tablet PO SCH (08:07)
[2022-02-03] MEDS: Ditropan XL 5 MG PO SCH (08:07)
[2022-02-03] MEDS: Flomax 0.4 MG PO SCH (08:07)
[2022-02-03] MEDS: NEURONTIN PO SCH (08:08)
[2022-02-03] MEDS: VITAMIN D PO SCH (08:08)
[2022-02-03] MEDS: TYLENOL EXTRA STRENGTH 500 MG PO SCH (08:08)
[2022-02-03] MEDS: MYSOLINE 50MG PO SCH (08:08)
[2022-02-03] MEDS: CLARITIN 10 MG PO SCH (08:08)
[2022-02-03] MEDS: Protonix 40MG Tablet PO SCH (08:08)
[2022-02-03] MEDS: THERAGRAN MULTIVITAMIN PO SCH (08:08)
[2022-02-03] MEDS: PATIENT OWN MEDICATION PO SCH (08:12)
[2022-02-03] MEDS: Miralax Powder 17GM PACKET PO SCH (08:12)
--- NOTE | 2022-02-03 08:12 | PCM.DS ---
Discharge Summary Date of Admission: 02/01/22 01:30 Admitting Physician: JAROCHO JOHANSEN Primary Care Provider: FELISHA NAVAS Allergies Allergies adhesive tape Allergy (Verified 01/04/22 16:54) bee venom protein (honey bee) Allergy (Verified 01/04/22 16:54) Hospital Summary - Hospital Course Hospital Course: Chief Complaint Diagnosis COPD exacerbation hypoxia Allergies Allergy/AdvReac Type Severity Reaction Status Date / Time adhesive tape Allergy Verified 01/04/22 16:54 bee venom protein (honey bee) Allergy Verified 01/04/22 16:54 Vital Signs (Last 24 hours) Temp Pulse Resp BP BP Pulse Ox 02/03/22 07:32 83 20 93 L 02/03/22 06:35 97.5 F 85 23 158/75 95 02/03/22 04:00 96.6 F 67 16 158/83 94 L 02/03/22 00:00 97.1 F 81 20 164/74 97 02/02/22 20:00 97.7 F 89 18 136/60 92 L 02/02/22 19:15 87 20 92 L 02/02/22 16:00 98 F 90 18 138/65 93 L 02/02/22 15:38 95 H 20 92 L 02/02/22 11:30 79 20 97 02/02/22 11:24 97.7 F 82 18 134/61 96 Home Medications Medication Instructions Recorded Confirmed Last Taken Type Calcium Carbonate/Vitamin D3 1 tab PO TID 01/31/22 01/31/22 01/31/22 History [Calcium 600 mg-D3 10 Mcg Sfgl] Dextromethorphan HBr [Tussin Cough] 1 cap PO BID 01/31/22 01/31/22 Unknown History Insulin Lispro [Humalog Kwikpen 0 units SQ UD 01/31/22 01/31/22 Unknown History [id number]] Tamsulosin HCl 0.4 mg [Flomax 0.4 mg PO DAILY 01/31/22 01/31/22 01/31/22 History 0.4 MG] Cephalexin Mh 500 mg [Keflex 500 500 mg PO Q6H 5 Days #20 cap 02/03/22 Unknown Rx mg] Current Medications Generic Name Dose Route Start Last Admin Trade Name Freq PRN Reason Stop Dose Admin Acetaminophen 500 mg 02/01/22 10:00 02/03/22 08:08 Acetaminophen 500 Mg Tablet PO 03/03/22 09:59 500 mg TID AUNG Administration Albuterol/Ipratropium 3 ml 02/01/22 07:00 02/03/22 07:30 Ipratropium/Albuterol Sulfate 3 Ml Ampul.Neb IH 03/03/22 06:59 3 ml QIDRT AUNG Administration Aspirin 81 mg 02/01/22 10:00 02/03/22 08:07 Aspirin 81 Mg Tablet.Ec PO 03/03/22 09:59 81 mg DAILY AUNG Administration Calcium Carbonate 1 tab 02/01/22 10:00 02/03/22 08:07 Calcium Carbonate 500 Mg/Vitamin D 1 Tab Tablet PO 03/03/22 09:59 1 tab TID AUNG Administration Cholecalciferol 1,000 unit 02/01/22 10:00 02/03/22 08:08 Cholecalciferol (Vitamin D3) 1000 Unit Tablet PO 03/03/22 09:59 1,000 unit DAILY AUNG Administration Methylprednisolone Sodium 0 mg 02/01/22 01:30 02/03/22 06:23 Succinate 60 mg/ Sterile Water IV 03/03/22 01:29 60 mg 2 ml Q6HT AUNG Administration Divalproex Sodium 1,000 mg 02/01/22 10:00 02/02/22 22:15 Divalproex Sodium 250 Mg Tablet Delayed Release PO 03/03/22 09:59 1,000 mg BID AUNG Administration Docusate Sodium 100 mg 02/01/22 10:00 02/03/22 08:07 Docusate Sodium 100 Mg Capsule PO 03/03/22 09:59 100 mg BID AUNG Administration Duloxetine HCl 60 mg 02/01/22 10:00 02/03/22 08:07 Duloxetine Hcl 30 Mg Cap PO 03/03/22 09:59 60 mg BID AUNG Administration Empagliflozin 10 mg 02/01/22 10:00 02/02/22 08:59 Empagliflozin 10 Mg Tablet PO 03/03/22 09:59 10 mg DAILY AUNG Administration Enoxaparin Sodium 40 mg 02/01/22 11:00 02/02/22 08:54 Enoxaparin Sodium 40 Mg/0.4 Ml Syringe SQ 03/03/22 10:59 40 mg DAILY AUNG Administration Gabapentin 300 mg 02/01/22 10:00 02/03/22 08:08 Gabapentin 300 Mg Capsule PO 03/03/22 09:59 300 mg TID AUNG Administration Guaifenesin 600 mg 02/01/22 11:45 Guaifenesin 600 Mg Tablet Er PO 03/03/22 07:17 BID PRN PRN congestion Ceftriaxone Sodium/Dextrose 1 g in 50 mls @ 100 mls/hr 02/01/22 22:00 02/02/22 22:14 Rocephin 1 Gm-D5w 50 Ml Bag IV 02/04/22 21:59 100 mls/hr HS AUNG Administration Azithromycin 500 mg in 250 mls @ 250 mls/hr 02/01/22 22:00 02/02/22 22:14 Zithromax 500 Mg/ 250 Ml Nacl Premix IV 03/03/22 21:59 250 mls/hr HS AUNG Administration Insulin Glargine 40 unit 02/01/22 10:00 02/02/22 08:55 Insulin Glargine 1 Unit SQ 03/03/22 09:59 40 unit QAM AUNG Administration Insulin Human Lispro 0 unit 02/01/22 03:34 02/03/22 01:47 Insulin Lispro 1 Unit SQ 03/03/22 03:33 6 unit UD PRN Administration HYPERGLYCEMIA Loratadine 10 mg 02/01/22 10:00 02/03/22 08:08 Loratadine 10 Mg Tablet PO 03/03/22 09:59 10 mg DAILY AUNG Administration Miscellaneous Information 1 each 02/01/22 08:00 Medication Intervention 1 Each Each 03/03/22 07:59 .RN TO CHECK AUNG Miscellaneous Information 1 each 02/01/22 08:00 Medication Intervention 1 Each Each 03/03/22 07:59 .RN TO CHECK AUNG Miscellaneous Information 1 each 02/01/22 08:00 Medication Intervention 1 Each Each 03/03/22 07:59 .RN TO CHECK AUNG Multivitamins Therapeutic 1 tab 02/01/22 10:00 02/03/22 08:08 Multivitamins,Therapeutic 1 Tab Tab PO 03/03/22 09:59 1 tab DAILY AUNG Administration Oxybutynin Chloride 10 mg 02/01/22 10:00 02/03/22 08:07 Oxybutynin Chloride Xl 5 Mg Tab PO 03/03/22 09:59 10 mg DAILY AUNG Administration Pantoprazole Sodium 40 mg 02/01/22 16:30 02/03/22 08:08 Protonix (Pantoprazole) 40 Mg Tablet PO 03/03/22 16:29 40 mg BIDAC AUNG Administration L-Methylfolate 1 each 02/01/22 14:00 02/02/22 22:13 PO 03/03/22 13:59 1 each BID AUNG Administration Polyethylene Glycol 17 gm 02/01/22 10:00 02/02/22 08:55 Polyethylene Glycol 3350 17 Gm Packet PO 03/03/22 09:59 17 gm DAILY AUNG Administration Primidone 50 mg 02/01/22 10:00 02/03/22 08:08 Primidone 50 Mg Tablet PO 03/03/22 09:59 50 mg TID AUNG Administration Fluticasone/Salmeterol 2 puff 02/01/22 07:00 02/03/22 07:32 Fluticasone/Salmeterol 115/21 - 120 Puff Common Canister IH 03/03/22 06:59 2 puff BIDRT AUNG Administration Simvastatin 40 mg 02/01/22 22:00 02/02/22 22:15 Simvastatin 20 Mg Tablet PO 03/03/22 21:59 40 mg HS AUNG Administration Tamsulosin HCl 0.4 mg 02/01/22 10:00 02/03/22 08:07 Tamsulosin Hcl 0.4 Mg Cap PO 03/03/22 09:59 0.4 mg DAILY AUNG Administration Theophylline 400 mg 02/01/22 10:00 02/02/22 22:14 Theophylline Anhydrous 400 Mg Tab.Er.24hr Tablet PO 03/03/22 09:59 400 mg BID AUNG Administration Tiotropium [place] 1 ea 02/01/22 07:00 02/03/22 07:32 Tiotropium [place] 18 Mcg/Cap Inhaler IH 03/03/22 06:59 1 ea DAILY AUNG Administration Discontinued Medications Generic Name Dose Route Start Last Admin Trade Name Freq PRN Reason Stop Dose Admin Albuterol Sulfate 2.5 mg 02/01/22 03:00 02/01/22 04:52 Albuterol Sulfate 2.5 Mg/3 Ml Neb IH 03/03/22 02:59 Not Given Q4HRT AUNG Albuterol/Ipratropium 3 ml 01/31/22 20:41 01/31/22 21:06 Ipratropium/Albuterol Sulfate 3 Ml Ampul.Neb IH 01/31/22 20:42 3 ml STAT ONE Administration Albuterol/Ipratropium Confirm 01/31/22 20:55 Ipratropium/Albuterol Sulfate 3 Ml Ampul.Neb Administered 01/31/22 20:56 Dose 3 ml IH .STK-MED ONE Methylprednisolone Sodium 0 mg 01/31/22 20:41 01/31/22 21:05 Succinate 125 mg/ Sterile IV 01/31/22 20:42 125 mg Water 10 ml STAT ONE Administration Enoxaparin Sodium 40 mg 02/02/22 10:00 02/01/22 11:04 Enoxaparin Sodium 40 Mg/0.4 Ml Syringe SQ 03/04/22 09:59 40 mg DAILY AUNG Administration Enoxaparin Sodium Confirm 02/01/22 11:03 Enoxaparin Sodium 40 Mg/0.4 Ml Syringe Administered 02/01/22 11:04 Dose 40 mg SQ .STK-MED ONE Guaifenesin 600 mg 02/01/22 07:18 02/01/22 08:47 Guaifenesin 600 Mg Tablet Er PO 03/03/22 07:17 600 mg BID PRN Administration congestion Ceftriaxone Sodium/Dextrose 2 g in 50 mls @ 100 mls/hr 01/31/22 21:50 01/31/22 22:25 Rocephin 2 Gm-D5w 50ml Bag IV 01/31/22 22:19 Infused STAT STA Infusion Azithromycin 500 mg in 250 mls @ 250 mls/hr 01/31/22 21:50 01/31/22 22:17 Zithromax 500 Mg/ 250 Ml Nacl Premix IV 01/31/22 22:49 250 ml/hr STAT STA 250 mls/hr Administration Ceftriaxone Sodium/Dextrose Confirm 01/31/22 21:53 Rocephin 2 Gm-D5w 50ml Bag Administered 01/31/22 21:54 Dose 2 g in 50 mls @ ud IV .STK-MED ONE Azithromycin Confirm 01/31/22 22:14 Zithromax 500 Mg/ 250 Ml Nacl Premix Administered 01/31/22 22:15 Dose 500 mg in 250 mls @ ud IV .STK-MED ONE Sodium Chloride Confirm 02/01/22 22:34 Sodium Chloride 0.9% 500 Ml Administered 02/01/22 22:35 Dose 500 mls @ ud IV .STK-MED ONE Methylprednisolone Sodium Succinate Confirm 01/31/22 21:03 Methylprednis Sod Succ 125 Mg/2 Ml Vial Administered 01/31/22 21:04 Dose 125 mg .ROUTE .STK-MED ONE Methylprednisolone Sodium Succinate Confirm 02/01/22 02:56 Methylprednis Sod Succ 125 Mg/2 Ml Vial Administered 02/01/22 02:57 Dose 125 mg .ROUTE .STK-MED ONE Methylprednisolone Sodium Succinate Confirm 02/01/22 16:26 Methylprednis Sod Succ 125 Mg/2 Ml Vial Administered 02/01/22 16:27 Dose 125 mg .ROUTE .STK-MED ONE Methylprednisolone Sodium Succinate Confirm 02/02/22 11:31 Methylprednis Sod Succ 125 Mg/2 Ml Vial Administered 02/02/22 11:32 Dose 125 mg .ROUTE .STK-MED ONE Methylprednisolone Sodium Succinate Confirm 02/02/22 17:18 Methylprednis Sod Succ 125 Mg/2 Ml Vial Administered 02/02/22 17:19 Dose 125 mg .ROUTE .STK-MED ONE Methylprednisolone Sodium Succinate Confirm 02/03/22 01:18 Methylprednis Sod Succ 125 Mg/2 Ml Vial Administered 02/03/22 01:19 Dose 125 mg .ROUTE .STK-MED ONE Methylprednisolone Sodium Succinate Confirm 02/03/22 06:04 Methylprednis Sod Succ 125 Mg/2 Ml Vial Administered 02/03/22 06:05 Dose 125 mg .ROUTE .STK-MED ONE Miscellaneous Information 1 each 02/01/22 08:00 Medication Intervention 1 Each Each 03/03/22 07:59 .RN TO CHECK [facility] Non-Formulary Medication 1 packet 02/01/22 07:30 02/01/22 08:13 Maltodextrin/Xanthan Gum [Thicken Up Clear Powder Packet] PO 03/03/22 07:29 Not Given ACHS [facility] Sterile Water Confirm 01/31/22 21:03 Water For Injection,Sterile 10 Ml Vial Administered 01/31/22 21:04 Dose 10 ml IJ .STK-MED ONE Intake & Output (Last 24 hours) 01/31/22 02/01/22 02/02/22 02/03/22 11:59 11:59 11:59 11:59 Intake Total 740 5258 1800 Output Total 225 6405 3300 Balance 515 33 -1500 Weight 79.9 kg 81.4 kg 82.2 kg Laboratory Results (Last 24 hours) 02/03/22 02/03/22 02/02/22 06:28 01:38 20:28 POC Glucometer 197 H 219 H 404 H 02/02/22 02/02/22 16:24 11:23 POC Glucometer 255 H 240 H Orders (Last 24 hours) Category Date Time Status Discharge Routine Discharge 02/03/22 Ordered POCT GLUCOSE Stat Lab 02/02/22 11:23 Completed POCT GLUCOSE Stat Lab 02/02/22 16:24 Completed POCT GLUCOSE Stat Lab 02/02/22 20:28 Completed POCT GLUCOSE Stat Lab 02/03/22 01:38 Completed POCT GLUCOSE Stat Lab 02/03/22 06:28 Completed Enoxaparin Sodium [Enoxaparin Sodium] Med 02/02/22 10:00 Discontinued 40 mg SQ DAILY Methylprednis Sod Succ 125 mg* [solu-MEDROL] Med 02/02/22 11:31 Discontinued 125 mg .ROUTE .STK-MED ONE Methylprednis Sod Succ 125 mg* [solu-MEDROL] Med 02/02/22 17:18 Discontinued 125 mg .ROUTE .STK-MED ONE Methylprednis Sod Succ 125 mg* [solu-MEDROL] Med 02/03/22 01:18 Discontinued 125 mg .ROUTE .STK-MED ONE Methylprednis Sod Succ 125 mg* [solu-MEDROL] Med 02/03/22 06:04 Discontinued 125 mg .ROUTE .STK-MED ONE Patient Care Notes (Last 24 hours) 02/03/22 08:09 Nursing Note by Judy Pugh ROUNDED WITH DR. WOLF. GIVE ONE DOSE OF ZITHROMAX BEFORE DISCHARGE. SEND HOME WITH KEFLEX Initialized on 02/03/22 08:09 - END OF NOTE - Vitals & Intake/Output Vital Signs: Vital Signs Temperature 97.5 F 02/03/22 06:35 Pulse Rate 83 02/03/22 07:32 Respiratory Rate 20 02/03/22 07:32 Blood Pressure 158/75 02/03/22 06:35 O2 Sat by Pulse Oximetry 93 L 02/03/22 07:32 Intake & Output: Intake & Output 01/31/22 02/01/22 02/02/22 02/03/22 11:59 11:59 11:59 11:59 Intake Total 740 5258 1800 Output Total 225 1559 3300 Balance 515 33 -1500 Weight 79.9 kg 81.4 kg 82.2 kg - Lab Result Diagrams: 02/01/22 03:16 02/01/22 03:16 Lab Results-Last 24 Hrs: Lab Results-Last 24 Hours 02/02/22 02/02/22 02/02/22 Range/Units 11:23 16:24 20:28 POC Glucometer 240 H 255 H 404 H (74 to 106) mg/dL 02/03/22 02/03/22 Range/Units 01:38 06:28 POC Glucometer 219 H 197 H (74 to 106) mg/dL Micro Results-Entire Visit: Accuchecks Date 02/03/22 Date 02/02/22 Date 02/02/22 Date 02/02/22 Time 06:28 Time 22:03 Time 16:15 Time 11:30 - Procedures and Test Procedures and Tests throughout Hospitalization: Therapy Orders & Screens 01/31/22 20:57 Respiratory Therapy Assessment DAILY Comment: 02/01/22 01:30 Oxygen Nasal Cannula 2 lpm Comment: 02/01/22 02:19 RT Screen per Nursing Assess ONCE Comment: Protocol Order Physician Instructions: Greater than 3 points order RT Admission Screen Reason For Exam: Triggered on Admission Diagnosis: COPD exacerbation hypoxia Diagnosis: COPD exacerbation hypoxia Pneumonia: Yes Home O2: Yes Asthma: No CHF: No Home CPAP/BIPAP: No Home Nebs/MDI: Yes Total Points: 13 ST Screen per Nursing Assess ONCE Comment: Protocol Order Physician Instructions: Greater than [address] Admission Screening Reason For Exam: Triggered on Admission Diagnosis: COPD exacerbation hypoxia CVA/Dyshpagia/Aphasia: No Cognitive Deficits: Yes Dehydration/Nutrition Deficit: No Reflux: No Oral-Motor Difficulties: No Pneumonia: Yes Half-Way Resident: No Total Points: 8 02/01/22 07:00 Respiratory MDI UD Comment: BERENICE DAILY Diagnosis: COPD exacerbation hypoxia Discharge Exam General Appearance: no apparent distress, alert Neurologic Exam: alert, oriented x 3, cooperative, normal mood/affect, nml cerebellar function, sensation nml, No motor deficits Eye Exam: PERRL, EOMI, eyes nml inspection Ears, Nose, Throat Exam: normal ENT inspection, pharynx normal, moist mucous membranes Neck Exam: normal inspection, non-tender, supple, full range of motion Respiratory Exam: normal breath sounds, lungs clear, No respiratory distress Cardiovascular Exam: regular rate/rhythm, normal heart sounds Gastrointestinal/Abdomen Exam: soft, No tenderness, No mass Male Genitalia Exam: deferred Rectal Exam: deferred Back Exam: normal inspection, normal range of motion, No CVA tenderness, No vertebral tenderness Extremity Exam: normal inspection, normal range of motion Skin Exam: normal color, warm, dry Final Diagnosis/Problem List - Final Discharge Diagnosis/Problem (1) COPD exacerbation Current Visit: Yes Status: Resolved Code(s): J44.1 - CHRONIC OBSTRUCTIVE PULMONARY DISEASE W (ACUTE) EXACERBATION (2) COPD (chronic obstructive pulmonary disease) Current Visit: Yes Status: Chronic (3) Diabetes type 2, uncontrolled Current Visit: Yes Status: Chronic Code(s): E11.65 - TYPE 2 DIABETES MELLITUS WITH HYPERGLYCEMIA - Discharge Discharge Date: 02/03/22 Disposition: Home, Self-Care Condition: Stable Prescriptions: Continue Omeprazole 40 mg PO BIDAC Fluticasone/Salmeterol [Advair 250-50 Diskus] 1 puff IH BID Tiotropium [place] Inhaler [Spiriva 18 Mcg/Cap Inhaler] 18 mcg IH DAILY Primidone 50 MG [Mysoline 50Mg] 50 mg PO TID Duloxetine HCl [Cymbalta] 60 mg PO BID Divalproex Sodium [Depakote] 1,000 mg PO BID Multivitamin [Multivitamins] 1 each PO DAILY Albuterol Sulfate [Proair Hfa] 2 puff IH Q4H PRN PRN PRN Reason: Shortness Of Breath/Wheezing Loratadine 10 mg PO DAILY Atorvastatin Calcium 40 mg PO HS Maltodextrin/Xanthan Gum [Thicken Up Clear Powder Packet] 1 packet PO ACHS Insulin Glargine [Lantus Insulin] 40 unit SQ QAM EPINEPHrine [Epipen 2-Jeffery] 0.3 mg IM UD PRN PRN Reason: allergic reaction Empagliflozin [Jardiance] 10 mg PO DAILY Aspirin 81 mg PO DAILY Gabapentin [Neurontin ] 300 mg PO TID capsule Oxybutynin Chloride [Oxybutynin Chloride ER] 10 mg PO DAILY Acetaminophen 500 mg [Tylenol Extra Strength 500 mg] 500 mg PO TID Polyethylene Glycol 3350 17 gm [Miralax Powder 17GM PACKET] 17 gm PO DAILY Levomefolate Calcium [l-Methylfolate Calcium] 1 each PO BID Docusate Sodium 100 mg [Docusate Sodium 100 MG] 100 mg PO BID Albuterol Sulfate 3 ml IH TID Acarbose [Precose] 50 mg PO TID Dulaglutide [Trulicity] 0.5 mg SQ WEEKLY Polymyxin B Sulf/Trimethoprim [Polymyxin B-Tmp Eye Drops] 1 ml OP Q6H Guaifenesin 600 mg ER [Mucinex 600MG ER Tabs] 600 mg PO BID PRN PRN Reason: congestion Cholecalciferol (Vitamin D3) [Vitamin D] 1,000 unit PO DAILY Theophylline Anhydrous [Theophylline ER 24Hr] 400 mg PO BID Dextromethorphan HBr [Tussin Cough] 1 cap PO BID Insulin Lispro [Humalog Kwikpen U-100] 0 units SQ UD Calcium Carbonate/Vitamin D3 [Calcium 600 mg-D3 10 Mcg Sfgl] 1 tab PO TID Tamsulosin HCl 0.4 mg [Flomax 0.4 MG] 0.4 mg PO DAILY Instructions: Aspiration Pneumonia Follow up with: FELISHA NAVAS MD [Primary Care Provider] - Call for Appointment
[2022-02-03] MEDS: ENOXAPARIN SODIUM SQ SCH (08:13)
[2022-02-03] MEDS: JARDIANCE PO SCH (08:13)
[2022-02-03] MEDS: THEOPHYLLINE ER 24HR PO SCH (08:13)
[2022-02-03] MEDS: Lantus Insulin SQ SCH (08:14)
[2022-02-03 11:56] VITALS: BP 148/67; PULSE 102; O2SAT 95
[2022-02-03] MEDS: Zithromax 500 MG/ 250 ML NaCl Premix 500 MG/250 ML IVPB IV SCH (12:49)
== END 2022-02-03 14:35 | disposition home or self-care (01) ==
LOC: ED 20:39 → MED SURG 02-01 01:30
PROVIDERS: ADMIT Family Medicine; ATTEND Family Medicine
DX: J44.1 Chronic obstructive pulmonary disease with (acute) exacerbation (principal); E11.65 Type 2 diabetes mellitus with hyperglycemia; E78.00 Pure hypercholesterolemia, unspecified; Z79.899 Other long term (current) drug therapy; Z20.828 Contact with and (suspected) exposure to other viral communicable diseases
CPT/HCPCS: 0241U; 36000; 36415; 71045; 71260; 74177; 80053; 82947; 83735; 83880; 84484; 85025; 85027; 87040; 87070; 93005; 93041; 93268; 94640; 94760; 96365; 96367; 96374; 99285; G0378; 87077; 87186; J0456; J0696; J1650; J1817; J2930; A9270-GY

== ENCOUNTER 2022-05-23 07:00 | Inpatient (IN) | payer MEDICARE ==
[2022-05-23] MEDS ORDERED: MOTRIN 600 MG PO ONE (07:28)
[2022-05-23] MEDS ORDERED: Sodium Chloride 0.9% 1000 ML 1,000 ML IV STA (07:28)
[2022-05-23] MEDS ORDERED: MOTRIN 600 MG ONE (07:29)
[2022-05-23] MEDS ORDERED: Sodium Chloride 0.9% 1000 ML 1,000 ML ONE (07:29)
[2022-05-23] MEDS ORDERED: PROVENTIL 2.5 MG/3 ML NEB IH ONE ×2 (07:31→07:35)
[2022-05-23 07:38] LABS: Hematocrit 41.7 % (42-50); Hemoglobin 13.1 g/dL (12.5-18.0); Mean Cell Volume 89.7 fL (78-100); Mean Corpuscular Hemoglobin 28.2 pg (26-32); Mean Corpuscular Hgb Concent. 31.4 g/dL (32-36); Mean Platelet Volume 10.6 fL (7.5-11.0); Platelet Count 178 x10^3/uL (150-450); Red Blood Count 4.65 x10^6/uL (4.1-5.6); Red Cell Distribution Width 14.6 % (11.5-14.0); White Blood Count 13.2 x10^3/uL (4.0-10.5)
[2022-05-23 07:38] LABS: Appearance CLEAR (CLEAR); Bilirubin NEGATIVE (NEGATIVE); Dipstick done @ ? MAIN LAB; Glucose >=1000 mg/dL (NEGATIVE); Ketones SMALL-15 (NEGATIVE); Nitrite NEGATIVE (NEGATIVE); Protein,Urine Dip 30 (Negative); RBC NEGATIVE Ery/ul (0-5); Urobilinogen 0.2 mg/dL (0-1)
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
[2022-05-23 07:45] LABS: INFLUENZA A NEGATIVE (NEGATIVE); INFLUENZA B NEGATIVE (NEGATIVE); RESPIRATORY SYNCTIAL VIRUS NEGATIVE (Negative); SARS-CoV-2 Xpert Express NEGATIVE (NEGATIVE)
[2022-05-23 07:48] LABS: A-aADO2 168; ABG HEMOGLOBIN 13.9; ABG POTASSIUM 3.8 (3.5-5.1); ARTERIAL BLD GAS O2 SATURATION 94.4 % (95-100); ARTERIAL BLOOD GAS BASE EXCESS 7.2 (-2.0-2.0); ARTERIAL BLOOD GAS FIO2 40 %; ARTERIAL BLOOD GAS PCO2 41 mmHg (35-45); ARTERIAL BLOOD GAS PO2 66 mmHg (75-100); ARTERIAL BLOOD GAS pH 7.49 (7.35-7.45); CARBOXYHEMOGLOBIN 1.2 % THgb (0.0-6.9); HCO3- 31.2 (22-28); HGB O2 SAT 92.2 g/dF (94-100); Methhemoglobin 1.2 % (1.4-1.5)
[2022-05-23 07:49] LABS: ABG SITE RIGHT RADIAL; ALLEN TEST OK? YES
[2022-05-23 07:50] LABS: Bacteria RARE /HPF (NEGATIVE); Urine Cultured Indicated? YES
[2022-05-23 07:50] LABS: ALBUMIN 4.3 g/dL (3.5-5.0); ALKALINE PHOSPHATASE 55 U/L (38-126); ANION GAP 13.8 MEQ/L (5-15); BLOOD UREA NITROGEN 22 mg/dL (9-20); CHLORIDE 103 mmol/L (98-107); Calcium 9.8 mg/dL (8.4-10.2); Carbon Dioxide 29 mmol/L (22-30); Creatinine 1 0.72 mg/dL (0.66-1.25); EST GLOMERULAR FILTRATION RATE > 60.0 ML/MIN; Glucose 186 mg/dL (74-106); SGOT/AST 43 U/L (17-59); SGPT/ALT 31 U/L (0-50); SODIUM 141 mmol/L (137-145); Total Protein 7.7 g/dL (6.3-8.2)
[2022-05-23 07:51] LABS: INR 1.03 (0.8-3.0); PROTIME 10.9 SECONDS (9.4-12.5); PTT 26.9 SECONDS (25.1-36.5)
[2022-05-23] MEDS ORDERED: ROCEPHIN 1 Gm-D5w 50 ml Bag** 1 G/50 ML IVPB IV STA (08:01)
[2022-05-23] MEDS ORDERED: ROCEPHIN 1 Gm-D5w 50 ml Bag** 1 G/50 ML IVPB IV ONE (08:04)
--- NOTE | 2022-05-23 08:57 | XRAY ---
Indication: Fever, cough, and short of breath. Comparison: January 31, 2022 Portable chest now demonstrates mild left base infiltrate versus atelectasis without consolidation/large effusion. New minimal right base linear opacities favoring subsegmental atelectasis/scarring. Heart not enlarged. Bony thorax intact again with mild osteopenia and degenerative changes.
[2022-05-23] MEDS: Zithromax 500 MG/ 250 ML NaCl Premix 500 MG/250 ML IVPB IV SCH (09:39)
--- NOTE | 2022-05-23 09:56 | XRAY ---
Indication: Short of breath and cough. Elevated d-dimer. History aspiration pneumonia. Multiple contiguous axial images obtained through the chest using 100 cc Isovue 370 contrast and PE protocol. Comparison: None Adequate opacification of the pulmonary arteries. However mild diffuse respiration artifact limits evaluation for pulmonary embolus. No obvious pulmonary embolus. Heart not enlarged. Aorta is normal in course and caliber. Several prominent mediastinal lymph nodes, largest subcarinal measuring 1.5 x 1.9 cm presumed reactive. Lungs demonstrates patchy consolidating left lower lobe and lesser degree left upper lobe airspace disease. Right upper lobe demonstrates small patchy groundglass airspace disease. Bibasilar subsegmental atelectasis/scarring. No effusion. Bony thorax intact with mild degenerative changes throughout the spine. Limited upper abdomen demonstrates mild fatty liver and moderate fecal debris of the visualized colon. Impression: 1. Respiration artifact limits evaluation for pulmonary embolus. No obvious pulmonary embolus. 2. Left lower lobe patchy consolidating airspace disease. Rule out aspiration pneumonia. Lesser degree airspace disease in left upper and even lesser degree right upper lobe. 3. Prominent mediastinal lymph nodes presumed reactive. 4. Incidental fatty liver and fecal stasis.
[2022-05-23] MEDS ORDERED: HUMALOG SQ PRN (10:35)
[2022-05-23] MEDS ORDERED: Zofran 4 MG/2 ML VIAL IV PRN (10:35)
[2022-05-23] MEDS ORDERED: DUONEB 0.5-3 MG/3 ml Neb IH SCH (11:00)
[2022-05-23] MEDS: PIPERACILLIN/TAZOBACTAM 3.375 GM in Sodium Chloride 100ML MINI-BAG PLUS 100 ML IV SCH ×2 (12:28→17:26)
[2022-05-23] MEDS: ENOXAPARIN SODIUM SQ SCH (12:28)
[2022-05-23] MEDS: Sodium Chloride 0.9% 1000 ML 1,000 ML IV SCH ×2 (12:29→21:59)
[2022-05-23] MEDS: Spiriva 18 Mcg/Cap Inhaler IH SCH (12:57)
[2022-05-23] MEDS: Advair Hfa 230/21 Mcg COMMON CANISTER IH SCH ×2 (12:57→17:26)
[2022-05-23] MEDS: PROVENTIL 2.5 MG/3 ML NEB IH SCH ×2 (12:57→17:26)
[2022-05-23] MEDS ORDERED: PROTONIX 40 MG IV IV SCH (13:00)
[2022-05-23] MEDS ORDERED: EPINEPHRINE 0.3 MG/0.3 ML IM PRN (13:52)
[2022-05-23] MEDS ORDERED: NON-FORMULARY ITEM (Albuterol Sulfate [Proair Digihaler] 90 MCG Aer.Pw.Bas) IH SCH (14:00)
[2022-05-23] MEDS ORDERED: DULAGLUTIDE 4.5 MG/0.5 ML SQ SCH (14:00)
[2022-05-23] MEDS ORDERED: MEDICATION INTERVENTION MC SCH ×2 (14:45)
[2022-05-23] MEDS ORDERED: [UNRECOGNIZED DRUG - OTHER] PO SCH (15:00)
[2022-05-23] MEDS ORDERED: CALCIUM CARBONATE PO SCH (15:00)
[2022-05-23] MEDS ORDERED: VITAMIN D3 PO SCH (15:00)
[2022-05-23] MEDS ORDERED: ACARBOSE 50 MG PO SCH (15:00)
[2022-05-23] MEDS: MYSOLINE 50MG PO SCH ×2 (15:47→21:58)
[2022-05-23] MEDS: Calcium 500MG W/Vit D Tablet PO SCH ×2 (15:47→22:00)
[2022-05-23] MEDS: NEURONTIN PO SCH ×2 (15:47→21:58)
[2022-05-23] MEDS ORDERED: [UNRECOGNIZED DRUG - OTHER] PO SCH (16:30)
[2022-05-23] MEDS ORDERED: NON-FORMULARY ITEM (Omeprazole [Omeprazole] 40 MG Capsule.Dr) PO SCH (16:30)
[2022-05-23] MEDS ORDERED: NON-FORMULARY ITEM (Insulin Lispro [Humalog Kwikpen U-100] 100 UNIT/ML Insuln.Pen) SQ SCH (16:30)
[2022-05-23] MEDS: Protonix 40MG Tablet PO SCH (17:26)
[2022-05-23] MEDS: HUMALOG SQ SCH (17:28)
[2022-05-23] MEDS: Cymbalta 30 MG Capsule PO SCH (21:58)
[2022-05-23] MEDS: Flomax 0.4 MG PO SCH (21:58)
[2022-05-23] MEDS: ZOCOR 20MG PO SCH (21:58)
[2022-05-23] MEDS ORDERED: LIPITOR 40MG PO SCH (22:00)
[2022-05-23] MEDS ORDERED: [UNRECOGNIZED DRUG - OTHER] PO SCH (22:00)
[2022-05-23] MEDS ORDERED: ALGAL OIL PO SCH (22:00)
[2022-05-23] MEDS ORDERED: LEVOMEFOLATE PO SCH (22:00)
[2022-05-23] MEDS ORDERED: NON-FORMULARY ITEM (Duloxetine Hcl [Cymbalta] 60 MG Capsule.Dr) PO SCH (22:00)
[2022-05-23] MEDS: Robitussin-Dm Syrup PO SCH (22:00)
[2022-05-23] MEDS: Docusate Sodium 100 MG PO SCH (22:00)
[2022-05-23] MEDS ORDERED: DEXTROMETHORPHAN HBR 15 MG PO SCH (22:00)
[2022-05-23] MEDS ORDERED: NON-FORMULARY ITEM (Divalproex Sodium [Depakote] 500 MG Tablet.Dr) PO SCH (22:00)
[2022-05-23] MEDS: THEOPHYLLINE ER 24HR PO SCH (22:01)
[2022-05-23] MEDS: PATIENT OWN MEDICATION PO SCH (22:46)
[2022-05-24] MEDS: PIPERACILLIN/TAZOBACTAM 3.375 GM in Sodium Chloride 100ML MINI-BAG PLUS 100 ML IV SCH ×5 (00:29→23:40)
[2022-05-24] MEDS: Sodium Chloride 0.9% 1000 ML 1,000 ML IV SCH ×3 (00:31→14:03)
[2022-05-24] MEDS: PROVENTIL 2.5 MG/3 ML NEB IH SCH ×4 (01:01→19:54)
[2022-05-24 05:27] LABS: Hemoglobin 10.3 g/dL (12.5-18.0); Mean Cell Volume 89.9 fL (78-100); Mean Corpuscular Hemoglobin 28.1 pg (26-32); Mean Corpuscular Hgb Concent. 31.2 g/dL (32-36); Mean Platelet Volume 10.9 fL (7.5-11.0); Platelet Count 166 x10^3/uL (150-450); Red Blood Count 3.67 x10^6/uL (4.1-5.6); Red Cell Distribution Width 15.1 % (11.5-14.0); White Blood Count 13.2 x10^3/uL (4.0-10.5)
[2022-05-24 06:45] LABS: ALBUMIN 3.2 g/dL (3.5-5.0); ALKALINE PHOSPHATASE 36 U/L (38-126); ANION GAP 8.2 MEQ/L (5-15); BLOOD UREA NITROGEN 12 mg/dL (9-20); CHLORIDE 104 mmol/L (98-107); Calcium 8.3 mg/dL (8.4-10.2); Carbon Dioxide 30 mmol/L (22-30); Creatinine 1 0.64 mg/dL (0.66-1.25); EST GLOMERULAR FILTRATION RATE > 60.0 ML/MIN; Glucose 95 mg/dL (74-106); Potassium 3.5 mmol/L (3.5-5.1); SGOT/AST 22 U/L (17-59); SGPT/ALT 24 U/L (0-50); SODIUM 139 mmol/L (137-145)
[2022-05-24] MEDS: Advair Hfa 230/21 Mcg COMMON CANISTER IH SCH ×2 (07:19→19:53)
[2022-05-24] MEDS: Spiriva 18 Mcg/Cap Inhaler IH SCH (07:23)
[2022-05-24] MEDS: HUMALOG SQ SCH ×3 (07:35→17:00)
[2022-05-24] MEDS: Lantus Insulin SQ SCH (07:35)
[2022-05-24] MEDS: Protonix 40MG Tablet PO SCH ×2 (07:35→17:01)
[2022-05-24 07:41] LABS: BAND 1 % (0.0-2.0); Eosinophil 2 % (0.00-3.0); Lymphocytes 51 % (24-44); Monocyte 4 % (0.0-12.0); Total Cells Counted 100
[2022-05-24 07:42] LABS: Platelet Estimate NORMAL (NORMAL)
[2022-05-24] MEDS: MORPHINE SULFATE 2 MG INJ IV PRN ×4 (08:28→17:01)
[2022-05-24] MEDS: Miralax Powder 17GM PACKET PO PRN (09:19)
[2022-05-24] MEDS: Docusate Sodium 100 MG PO SCH ×2 (09:21→21:06)
[2022-05-24] MEDS: ECOTRIN 81 MG PO SCH (09:21)
[2022-05-24] MEDS: NEURONTIN PO SCH ×3 (09:21→21:07)
[2022-05-24] MEDS: Cymbalta 30 MG Capsule PO SCH ×2 (09:21→21:06)
[2022-05-24] MEDS: Calcium 500MG W/Vit D Tablet PO SCH ×3 (09:21→21:07)
[2022-05-24] MEDS: CLARITIN 10 MG PO SCH (09:21)
[2022-05-24] MEDS: TYLENOL EXTRA STRENGTH 500 MG PO PRN ×3 (09:21→21:07)
[2022-05-24] MEDS: Ditropan XL 5 MG PO SCH (09:23)
[2022-05-24] MEDS: ENOXAPARIN SODIUM SQ SCH (09:23)
[2022-05-24] MEDS: VITAMIN D PO SCH (09:24)
[2022-05-24] MEDS: THEOPHYLLINE ER 24HR PO SCH ×2 (09:24→21:09)
[2022-05-24] MEDS: MYSOLINE 50MG PO SCH ×3 (09:24→21:06)
[2022-05-24] MEDS: THERAGRAN MULTIVITAMIN PO SCH (09:24)
[2022-05-24] MEDS: Robitussin-Dm Syrup PO SCH ×2 (09:25→21:08)
[2022-05-24] MEDS: JARDIANCE PO SCH (09:25)
[2022-05-24] MEDS: PATIENT OWN MEDICATION PO SCH ×2 (09:32→21:09)
[2022-05-24] MEDS: Zithromax 500 MG/ 250 ML NaCl Premix 500 MG/250 ML IVPB IV SCH (09:41)
[2022-05-24] MEDS ORDERED: NON-FORMULARY ITEM (Oxybutynin Chloride [Oxybutynin Chloride Er] 10 MG Tab.Er.24) PO SCH (10:00)
[2022-05-24] MEDS ORDERED: NON-FORMULARY ITEM (Multivitamin [Multivitamins] 1 EACH Capsule) PO SCH (10:00)
[2022-05-24] MEDS ORDERED: NON-FORMULARY ITEM (Aspirin [Aspirin] 81 MG Tablet) PO SCH (10:00)
[2022-05-24] MEDS ORDERED: Zithromax 500 MG/ 250 ML NaCl Premix 500 MG/250 ML IVPB IV SCH (10:00)
[2022-05-24] MEDS: HUMALOG SQ PRN (21:06)
[2022-05-24] MEDS: Flomax 0.4 MG PO SCH (21:07)
[2022-05-24] MEDS: ZOCOR 20MG PO SCH (21:09)
[2022-05-25] MEDS: PROVENTIL 2.5 MG/3 ML NEB IH SCH ×4 (01:27→20:21)
[2022-05-25] MEDS: PIPERACILLIN/TAZOBACTAM 3.375 GM in Sodium Chloride 100ML MINI-BAG PLUS 100 ML IV SCH ×4 (05:38→23:18)
[2022-05-25] MEDS: Sodium Chloride 0.9% 1000 ML 1,000 ML IV SCH ×2 (05:38→15:49)
[2022-05-25 06:13] LABS: Mean Cell Volume 89.1 fL (78-100); Mean Corpuscular Hgb Concent. 31.4 g/dL (32-36); Mean Platelet Volume 10.1 fL (7.5-11.0); Platelet Count 157 x10^3/uL (150-450); Red Blood Count 3.93 x10^6/uL (4.1-5.6); Red Cell Distribution Width 14.9 % (11.5-14.0); White Blood Count 12.8 x10^3/uL (4.0-10.5)
[2022-05-25 06:26] LABS: ANION GAP 7.8 MEQ/L (5-15); BLOOD UREA NITROGEN 6 mg/dL (9-20); CHLORIDE 101 mmol/L (98-107); Calcium 9.2 mg/dL (8.4-10.2); Carbon Dioxide 32 mmol/L (22-30); Creatinine 1 0.69 mg/dL (0.66-1.25); EST GLOMERULAR FILTRATION RATE > 60.0 ML/MIN; Glucose 146 mg/dL (74-106); Potassium 3.8 mmol/L (3.5-5.1); SODIUM 138 mmol/L (137-145)
[2022-05-25] MEDS: Spiriva 18 Mcg/Cap Inhaler IH SCH (07:33)
[2022-05-25] MEDS: Advair Hfa 230/21 Mcg COMMON CANISTER IH SCH ×2 (07:34→20:21)
[2022-05-25] MEDS: HUMALOG SQ SCH ×3 (07:37→16:14)
[2022-05-25] MEDS: MORPHINE SULFATE 2 MG INJ IV PRN ×4 (07:51→19:52)
[2022-05-25] MEDS: Lantus Insulin SQ SCH (07:51)
[2022-05-25] MEDS: ENOXAPARIN SODIUM SQ SCH (07:51)
[2022-05-25] MEDS: Ditropan XL 5 MG PO SCH (07:52)
[2022-05-25] MEDS: ECOTRIN 81 MG PO SCH (07:52)
[2022-05-25] MEDS: Calcium 500MG W/Vit D Tablet PO SCH ×3 (07:52→21:00)
[2022-05-25] MEDS: CLARITIN 10 MG PO SCH (07:52)
[2022-05-25] MEDS: Cymbalta 30 MG Capsule PO SCH ×2 (07:52→21:00)
[2022-05-25] MEDS: VITAMIN D PO SCH (07:53)
[2022-05-25] MEDS: Protonix 40MG Tablet PO SCH ×2 (07:53→16:52)
[2022-05-25] MEDS: THEOPHYLLINE ER 24HR PO SCH ×2 (07:53→21:02)
[2022-05-25] MEDS: THERAGRAN MULTIVITAMIN PO SCH (07:53)
[2022-05-25] MEDS: MYSOLINE 50MG PO SCH ×3 (07:53→21:00)
[2022-05-25] MEDS: Robitussin-Dm Syrup PO SCH ×2 (07:54→21:07)
[2022-05-25] MEDS: PATIENT OWN MEDICATION PO SCH ×2 (07:54→21:06)
[2022-05-25] MEDS: JARDIANCE PO SCH (07:54)
[2022-05-25] MEDS: NEURONTIN PO SCH ×3 (07:54→21:01)
[2022-05-25] MEDS: Docusate Sodium 100 MG PO SCH ×2 (07:54→21:01)
[2022-05-25] MEDS: Zithromax 500 MG/ 250 ML NaCl Premix 500 MG/250 ML IVPB IV SCH (07:55)
[2022-05-25] MEDS ORDERED: PATIENT OWN MEDICATION SQ SCH (11:00)
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
[2022-05-25] MEDS: TYLENOL EXTRA STRENGTH 500 MG PO PRN (14:35)
[2022-05-25] MEDS: Flomax 0.4 MG PO SCH (21:00)
[2022-05-25] MEDS: ZOCOR 20MG PO SCH (21:00)
[2022-05-25] MEDS: HUMALOG SQ PRN (21:44)
[2022-05-26] MEDS: PROVENTIL 2.5 MG/3 ML NEB IH SCH ×4 (01:30→19:28)
[2022-05-26] MEDS: Sodium Chloride 0.9% 1000 ML 1,000 ML IV SCH ×2 (04:54→19:38)
[2022-05-26] MEDS: PIPERACILLIN/TAZOBACTAM 3.375 GM in Sodium Chloride 100ML MINI-BAG PLUS 100 ML IV SCH ×4 (05:45→23:31)
[2022-05-26] MEDS: Spiriva 18 Mcg/Cap Inhaler IH SCH (07:00)
[2022-05-26] MEDS: Advair Hfa 230/21 Mcg COMMON CANISTER IH SCH ×2 (07:00→19:29)
[2022-05-26] MEDS: HUMALOG SQ SCH ×3 (08:31→17:32)
[2022-05-26] MEDS: Protonix 40MG Tablet PO SCH ×2 (08:31→15:59)
[2022-05-26] MEDS: Lantus Insulin SQ SCH (08:32)
[2022-05-26] MEDS: MORPHINE SULFATE 2 MG INJ IV PRN ×2 (08:39→21:13)
[2022-05-26] MEDS: Miralax Powder 17GM PACKET PO PRN (10:20)
[2022-05-26] MEDS: ENOXAPARIN SODIUM SQ SCH (10:20)
[2022-05-26] MEDS: VITAMIN D PO SCH (10:21)
[2022-05-26] MEDS: Cymbalta 30 MG Capsule PO SCH ×2 (10:21→21:15)
[2022-05-26] MEDS: NEURONTIN PO SCH ×3 (10:21→21:15)
[2022-05-26] MEDS: Ditropan XL 5 MG PO SCH (10:22)
[2022-05-26] MEDS: TYLENOL EXTRA STRENGTH 500 MG PO PRN ×2 (10:22→15:58)
[2022-05-26] MEDS: Calcium 500MG W/Vit D Tablet PO SCH ×3 (10:23→21:14)
[2022-05-26] MEDS: THERAGRAN MULTIVITAMIN PO SCH (10:23)
[2022-05-26] MEDS: MYSOLINE 50MG PO SCH ×3 (10:23→21:15)
[2022-05-26] MEDS: ECOTRIN 81 MG PO SCH (10:23)
[2022-05-26] MEDS: CLARITIN 10 MG PO SCH (10:24)
[2022-05-26] MEDS: Docusate Sodium 100 MG PO SCH ×2 (10:24→21:14)
[2022-05-26] MEDS: JARDIANCE PO SCH (10:25)
[2022-05-26] MEDS: PATIENT OWN MEDICATION PO SCH ×2 (10:25→21:15)
[2022-05-26] MEDS: Robitussin-Dm Syrup PO SCH ×2 (10:26→21:15)
[2022-05-26] MEDS: THEOPHYLLINE ER 24HR PO SCH ×2 (10:27→21:15)
[2022-05-26] MEDS: Zithromax 500 MG/ 250 ML NaCl Premix 500 MG/250 ML IVPB IV SCH (10:36)
--- NOTE | 2022-05-26 13:38 | PCM.NOTE ---
Date and Time: 05/26/22 6009 Subjective Assessment: doing little better - Review of Systems Constitutional: No Fever, No Chills Eyes: No Symptoms Ears, Nose, & Throat: No Symptoms Respiratory: Cough, Orthopnea, Short Of Breath, Wheezing Cardiac: No Chest Pain, No Edema, No Syncope Abdominal/Gastrointestinal: No Abdominal Pain, No Nausea, No Vomiting, No Diarrhea Genitourinary Symptoms: No Dysuria Musculoskeletal: No Back Pain, No Neck Pain Skin: No Rash Neurological: No Dizziness, No Focal Weakness, No Sensory Changes Psychological: No Symptoms Endocrine: No Symptoms Hematologic/Lymphatic: No Symptoms Immunological/Allergic: No Symptoms Objective Exam General Appearance: no apparent distress, alert Neurologic Exam: alert, oriented x 3, cooperative, normal mood/affect, nml cerebellar function, sensation nml, No motor deficits Skin Exam: normal color, warm, dry Eye Exam: PERRL, EOMI, eyes nml inspection Ears, Nose, Throat Exam: normal ENT inspection, pharynx normal, moist mucous membranes Neck Exam: normal inspection, non-tender, supple, full range of motion Respiratory Exam: diminished breath sounds, crackles/rales, rhonchi, wheezing, No respiratory distress Cardiovascular Exam: regular rate/rhythm, normal heart sounds Gastrointestinal/Abdomen Exam: soft, No tenderness, No mass Extremity Exam: normal inspection, normal range of motion Back Exam: normal inspection, normal range of motion, No CVA tenderness, No vertebral tenderness Male Genitalia Exam: deferred Rectal Exam: deferred OBJECTIVE DATA Vital Signs: Vital Signs - 24 hr Temp Pulse Resp BP Pulse Ox 05/26/22 12:00 97.5 F 100 H 18 146/70 94 L 05/26/22 07:51 97.5 F 98 H 18 145/77 91 L 05/26/22 07:04 96 H 20 90 L 05/26/22 04:00 98.6 F 101 H 20 126/64 96 05/26/22 01:30 94 H 20 94 L 05/26/22 00:00 98.0 F 78 20 123/72 98 05/25/22 20:22 99 H 18 97 05/25/22 20:00 98.3 F 97 H 20 138/65 97 05/25/22 16:00 97.3 F 105 H 18 124/63 94 L 05/25/22 13:40 95 H 20 95 Pain Assessment - Last Documented Pain Intensity 5 Pain Scale Used 0-10 Pain Scale Intake and Output: Intake & Output 05/24/22 05/25/22 05/26/22 05/27/22 11:59 11:59 11:59 11:59 Intake Total 5063 4353 3993 Output Total 1355 3650 3325 Balance 3700 262 114 Lab Results: Lab Results-Last 24 Hours 05/25/22 05/25/22 05/26/22 Range/Units 16:09 21:31 06:52 POC Glucometer 160 H 310 H 166 H (74 to 106) mg/dL 05/26/22 Range/Units 11:17 POC Glucometer 277 H (74 to 106) mg/dL Assessment/Plan (1) Aspiration pneumonia Current Visit: Yes Status: Acute Assessment & Plan: Chief Complaint Diagnosis c/o cough, chest congestion for 1-2 days Allergies Allergy/AdvReac Type Severity Reaction Status Date / Time adhesive tape Allergy Verified 05/23/22 12:17 bee venom protein (honey bee) Allergy Verified 05/23/22 12:17 poison jarrett extract Allergy Verified 05/23/22 12:17 Vital Signs (Last 24 hours) Temp Pulse Resp BP Pulse Ox 05/26/22 12:00 97.5 F 100 H 18 146/70 94 L 05/26/22 07:51 97.5 F 98 H 18 145/77 91 L 05/26/22 07:04 96 H 20 90 L 05/26/22 04:00 98.6 F 101 H 20 126/64 96 05/26/22 01:30 94 H 20 94 L 05/26/22 00:00 98.0 F 78 20 123/72 98 05/25/22 20:22 99 H 18 97 05/25/22 20:00 98.3 F 97 H 20 138/65 97 05/25/22 16:00 97.3 F 105 H 18 124/63 94 L 05/25/22 13:40 95 H 20 95 Home Medications Medication Instructions Recorded Confirmed Last Taken Type Albuterol Sulfate 0.63 mg IH TID 05/23/22 05/23/22 Unknown History Albuterol Sulfate [Proair 2 puff IH Q4H 05/23/22 05/23/22 05/22/22 History Digihaler] Dextromethorphan HBr [Tussin Cough] 15 mg PO BID 05/23/22 05/23/22 05/23/22 07:00 History 15 mg Insulin Glargine,Hum.rec.anlog 40 unit SQ QAM 05/23/22 05/23/22 05/23/22 07:00 History [Lantus] Insulin Lispro [Humalog Kwikpen] 100 unit SQ AC 05/23/22 05/23/22 05/22/22 17:00 History Levomefolate/Algal Oil 7.5 mg PO BID 05/23/22 05/23/22 05/23/22 07:00 History [l-Methylfolate Forte 7.5 mg Cp] 7.5mg Oxybutynin Chloride [Oxybutynin 10 mg PO DAILY 05/23/22 05/23/22 05/22/22 21:00 History Chloride ER] 10 mg Polyethylene Glycol 3350 17 gm 17 gm PO DAILY PRN 05/23/22 05/23/22 Unknown History [Miralax Powder 17GM PACKET] Current Medications Generic Name Dose Route Start Last Admin Trade Name Freq PRN Reason Stop Dose Admin Acetaminophen 500 mg 05/23/22 13:52 05/26/22 10:22 Acetaminophen 500 Mg Tablet PO 06/22/22 13:51 500 mg TID PRN Administration PAIN Albuterol Sulfate 2.5 mg 05/23/22 13:00 05/26/22 06:57 Albuterol Sulfate 2.5 Mg/3 Ml Neb IH 06/22/22 12:59 2.5 mg Q6HRT AUNG Administration Aspirin 81 mg 05/24/22 10:00 05/26/22 10:23 Aspirin 81 Mg Tablet.Ec PO 06/23/22 09:59 81 mg DAILY AUNG Administration Calcium Carbonate 1 tab 05/23/22 15:00 05/26/22 10:23 Calcium Carbonate 500 Mg/Vitamin D 1 Tab Tablet PO 06/22/22 14:59 1 tab TID AUNG Administration Cholecalciferol 1,000 unit 05/24/22 10:00 05/26/22 10:21 Cholecalciferol (Vitamin D3) 1000 Unit Tablet PO 06/23/22 09:59 1,000 unit DAILY AUNG Administration Divalproex Sodium 1,000 mg 05/23/22 22:00 05/26/22 10:21 Divalproex Sodium 250 Mg Tablet Delayed Release PO 06/22/22 21:59 1,000 mg BID AUNG Administration Docusate Sodium 100 mg 05/23/22 22:00 05/26/22 10:24 Docusate Sodium 100 Mg Capsule PO 06/22/22 21:59 100 mg BID AUNG Administration Duloxetine HCl 60 mg 05/23/22 22:00 05/26/22 10:21 Duloxetine Hcl 30 Mg Cap PO 06/22/22 21:59 60 mg BID AUNG Administration Empagliflozin 10 mg 05/24/22 10:00 05/26/22 10:25 Empagliflozin 10 Mg Tablet PO 06/23/22 09:59 10 mg DAILY AUNG Administration Enoxaparin Sodium 40 mg 05/23/22 13:00 05/26/22 10:20 Enoxaparin Sodium 40 Mg/0.4 Ml Syringe SQ 06/22/22 12:59 40 mg DAILY AUNG Administration Gabapentin 300 mg 05/23/22 15:00 05/26/22 10:21 Gabapentin 300 Mg Capsule PO 06/22/22 14:59 300 mg TID AUNG Administration Guaifenesin/Dextromethorphan 10 ml 05/23/22 22:00 05/26/22 10:26 Guaifenesin/D-Methorphan Hb 118 Ml Syrup PO 06/22/22 21:59 10 ml BID AUNG Administration Azithromycin 500 mg in 250 mls @ 250 mls/hr 05/23/22 10:00 05/26/22 10:36 Zithromax 500 Mg/ 250 Ml Nacl Premix IV 06/22/22 09:59 250 mls/hr Q24H10 AUNG 250 mls/hr Administration Sodium Chloride 1,000 mls @ 100 mls/hr 05/23/22 10:45 05/26/22 04:54 Sodium Chloride 0.9% 1000 Ml IV 06/22/22 10:44 100 mls/hr .Q10H AUNG Administration Piperacillin Sod/Tazobactam 100 mls @ 200 mls/hr 05/23/22 12:00 05/26/22 05:45 Sod 3.375 gm/ Sodium Chloride IV 05/28/22 11:59 200 mls/hr Q6HT AUNG Administration Insulin Glargine 40 unit 05/24/22 07:00 05/26/22 08:32 Insulin Glargine 1 Unit SQ 06/23/22 06:59 40 unit 0700 AUNG Administration Insulin Human Lispro 0 unit 05/23/22 16:30 05/26/22 12:53 Insulin Lispro 1 Unit SQ 06/22/22 16:29 8 unit AC AUNG Administration Insulin Human Lispro 0 unit 05/24/22 20:53 05/25/22 21:44 Insulin Lispro 1 Unit SQ 06/23/22 20:52 6 unit UD PRN Administration HYPERGLYCEMIA Loratadine 10 mg 05/24/22 10:00 05/26/22 10:24 Loratadine 10 Mg Tablet PO 06/23/22 09:59 10 mg DAILY AUNG Administration Miscellaneous Information 0 each 05/23/22 14:45 Medication Intervention 1 Each Each 06/22/22 14:44 .RN TO CHECK WITH PATIENT AUNG Morphine Sulfate 2 mg 05/24/22 08:17 05/26/22 08:39 Morphine Sulfate 2 Mg/Ml Inj IV 05/29/22 08:16 2 mg Q2H PRN PRN Administration PAIN Multivitamins Therapeutic 1 tab 05/24/22 10:00 05/26/22 10:23 Multivitamins,Therapeutic 1 Tab Tab PO 06/23/22 09:59 1 tab DAILY AUNG Administration Ondansetron HCl 4 mg 05/23/22 10:35 Ondansetron Hcl 4 Mg/2 Ml Vial IV 06/22/22 10:34 Q6H PRN PRN NAUSEA/VOMITING Oxybutynin Chloride 10 mg 05/24/22 10:00 05/26/22 10:22 Oxybutynin Chloride Xl 5 Mg Tab PO 06/23/22 09:59 10 mg DAILY AUNG Administration Pantoprazole Sodium 40 mg 05/23/22 16:30 05/26/22 08:31 Protonix (Pantoprazole) 40 Mg Tablet PO 06/22/22 16:29 40 mg BIDAC AUNG Administration Patient Own Med (Eb- 0 each 05/23/22 22:00 05/26/22 10:25 N5) PO 06/22/22 21:59 1 each BID AUNG Administration Trulicity 4.5mg/0. 0 each 05/25/22 11:00 05/25/22 11:15 5ml Pen SQ 06/24/22 10:59 0.5 each Q7D AUNG Administration Polyethylene Glycol 17 gm 05/23/22 13:52 05/26/22 10:20 Polyethylene Glycol 3350 17 Gm Packet PO 06/22/22 13:51 17 gm DAILY PRN Administration CONSTIPATION Primidone 50 mg 05/23/22 15:00 05/26/22 10:23 Primidone 50 Mg Tablet PO 06/22/22 14:59 50 mg TID AUNG Administration Fluticasone/Salmeterol 2 puff 05/23/22 19:00 05/26/22 07:00 Fluticasone/Salmeterol 230/ Common Canister 06/22/22 18:59 2 puff BIDRT AUNG Administration Simvastatin 40 mg 05/23/22 22:00 05/25/22 21:00 Simvastatin 20 Mg Tablet PO 06/22/22 21:59 40 mg HS AUNG Administration Tamsulosin HCl 0.4 mg 05/23/22 22:00 05/25/22 21:00 Tamsulosin Hcl 0.4 Mg Cap PO 06/22/22 21:59 0.4 mg HS AUNG Administration Theophylline 400 mg 05/23/22 22:00 05/26/22 10:27 Theophylline Anhydrous 400 Mg Tab.Er.24hr Tablet PO 06/22/22 21:59 400 mg BID AUNG Administration Tiotropium [place] 1 ea 05/23/22 13:00 05/26/22 07:00 Tiotropium [place] 18 Mcg/Cap Inhaler 06/22/22 12:59 1 ea DAILY AUNG Administration Discontinued Medications Generic Name Dose Route Start Last Admin Trade Name Freq PRN Reason Stop Dose Admin Albuterol Sulfate 2.5 mg 05/23/22 07:31 05/23/22 07:41 Albuterol Sulfate 2.5 Mg/3 Ml Neb 05/23/22 07:32 2.5 mg STAT ONE Administration Albuterol Sulfate Confirm 05/23/22 07:35 Albuterol Sulfate 2.5 Mg/3 Ml Neb Administered 05/23/22 07:36 Dose 2.5 mg IH .STK-MED ONE Albuterol/Ipratropium 3 ml 05/23/22 11:00 05/23/22 19:55 Ipratropium/Albuterol Sulfate 3 Ml Ampul.Neb 06/22/22 10:59 Not Given Q4HRT AUNG Sodium Chloride 1,000 mls @ 999 mls/hr 05/23/22 07:28 05/23/22 08:45 Sodium Chloride 0.9% 1000 Ml IV 05/23/22 08:28 Infused .Q1H1M STA Infusion Sodium Chloride Confirm 05/23/22 07:29 Sodium Chloride 0.9% 1000 Ml Administered 05/23/22 07:30 Dose 1,000 mls @ ud .ROUTE .STK-MED ONE Ceftriaxone Sodium/Dextrose 1 g in 50 mls @ 100 mls/hr 05/23/22 08:01 05/23/22 08:37 Rocephin 1 Gm-D5w 50 Ml Bag IV 05/23/22 08:30 Infused STAT STA Infusion Ceftriaxone Sodium/Dextrose Confirm 05/23/22 08:04 Rocephin 1 Gm-D5w 50 Ml Bag Administered 05/23/22 08:05 Dose 1 g in 50 mls @ ud IV .STK-MED ONE Azithromycin 500 mg in 250 mls @ 250 mls/hr 05/24/22 10:00 Zithromax 500 Mg/ 250 Ml Nacl Premix IV 06/23/22 09:59 Q24H10 AUNG Ibuprofen 600 mg 05/23/22 07:28 05/23/22 07:35 Ibuprofen 600 Mg Tablet PO 05/23/22 07:29 600 mg STAT ONE Administration Ibuprofen Confirm 05/23/22 07:29 Ibuprofen 600 Mg Tablet Administered 05/23/22 07:30 Dose 600 mg .ROUTE .STK-MED ONE Insulin Human Lispro 0 unit 05/23/22 10:35 Insulin Lispro 1 Unit SQ 06/22/22 10:34 UD PRN HYPERGLYCEMIA Miscellaneous Information 0 each 05/23/22 14:45 Medication Intervention 1 Each Each 06/22/22 14:44 .RN TO CHECK WITH PT AUNG Non-Formulary Medication 2 puff 05/23/22 14:00 05/23/22 19:55 Albuterol Sulfate [Proair Digihaler] IH 06/22/22 13:59 Not Given Q4H AUNG Non-Formulary Medication 0.3 mg 05/23/22 13:52 Epinephrine [Epipen 2-Jeffery] IM UD PRN allergic reaction Non-Formulary Medication 1 packet 05/23/22 16:30 Maltodextrin/Xanthan Gum [Thicken Up Clear Powder Packet] PO 06/22/22 16:29 ACHS AUNG Pantoprazole Sodium 40 mg 05/23/22 13:00 05/23/22 12:28 Pantoprazole 40 Mg Vial IV 06/22/22 12:59 40 mg Q24H10 AUNG Administration Intake & Output (Last 24 hours) 05/24/22 05/25/22 05/26/22 05/27/22 11:59 11:59 11:59 11:59 Intake Total 5063 4353 3993 Output Total 1355 3650 3325 Balance 3708 703 668 Laboratory Results (Last 24 hours) 05/26/22 05/26/22 05/25/22 11:17 06:52 21:31 POC Glucometer 277 H 166 H 310 H 05/25/22 16:09 POC Glucometer 160 H Orders (Last 24 hours) Category Date Time Status POCT GLUCOSE Stat Lab 05/25/22 16:09 Completed POCT GLUCOSE Stat Lab 05/25/22 21:31 Completed POCT GLUCOSE Stat Lab 05/26/22 06:52 Completed POCT GLUCOSE Stat Lab 05/26/22 11:17 Completed Code(s): J69.0 - PNEUMONITIS DUE TO INHALATION OF FOOD AND VOMIT
[2022-05-26] MEDS: Flomax 0.4 MG PO SCH (21:14)
[2022-05-26] MEDS: ZOCOR 20MG PO SCH (21:15)
[2022-05-27] MEDS: PROVENTIL 2.5 MG/3 ML NEB IH SCH ×4 (01:24→19:53)
[2022-05-27] MEDS: Sodium Chloride 0.9% 1000 ML 1,000 ML IV SCH (01:53)
[2022-05-27] MEDS: MORPHINE SULFATE 2 MG INJ IV PRN (02:41)
[2022-05-27 04:36] LABS: Hematocrit 34.9 % (42-50); Hemoglobin 10.9 g/dL (12.5-18.0); Mean Cell Volume 90.9 fL (78-100); Mean Corpuscular Hemoglobin 28.4 pg (26-32); Mean Corpuscular Hgb Concent. 31.2 g/dL (32-36); Mean Platelet Volume 10.1 fL (7.5-11.0); Platelet Count 183 x10^3/uL (150-450); Red Blood Count 3.84 x10^6/uL (4.1-5.6); Red Cell Distribution Width 14.7 % (11.5-14.0); White Blood Count 11.3 x10^3/uL (4.0-10.5)
[2022-05-27 04:56] LABS: ALBUMIN 3.4 g/dL (3.5-5.0); ALKALINE PHOSPHATASE 47 U/L (38-126); ANION GAP 10.9 MEQ/L (5-15); BLOOD UREA NITROGEN 6 mg/dL (9-20); CHLORIDE 103 mmol/L (98-107); Calcium 9.2 mg/dL (8.4-10.2); Carbon Dioxide 30 mmol/L (22-30); Creatinine 1 0.62 mg/dL (0.66-1.25); EST GLOMERULAR FILTRATION RATE > 60.0 ML/MIN; Glucose 184 mg/dL (74-106); Potassium 3.6 mmol/L (3.5-5.1); SGOT/AST 37 U/L (17-59); SGPT/ALT 34 U/L (0-50); SODIUM 140 mmol/L (137-145); Total Protein 6.5 g/dL (6.3-8.2)
[2022-05-27] MEDS: PIPERACILLIN/TAZOBACTAM 3.375 GM in Sodium Chloride 100ML MINI-BAG PLUS 100 ML IV SCH ×4 (05:33→23:40)
[2022-05-27 06:10] LABS: ANISOCYTOSIS 1+; Eosinophil 2 % (0.00-3.0); Lymphocytes 49 % (24-44); Monocyte 1 % (0.0-12.0); Polychromasia 1+; Total Cells Counted 100
[2022-05-27 06:11] LABS: Platelet Estimate NORMAL (NORMAL)
[2022-05-27] MEDS: Advair Hfa 230/21 Mcg COMMON CANISTER IH SCH ×2 (06:40→19:53)
[2022-05-27] MEDS: Spiriva 18 Mcg/Cap Inhaler IH SCH (06:40)
[2022-05-27] MEDS: Protonix 40MG Tablet PO SCH ×2 (08:19→16:37)
[2022-05-27] MEDS: Lantus Insulin SQ SCH (08:20)
[2022-05-27] MEDS: HUMALOG SQ SCH ×3 (08:22→17:21)
[2022-05-27] MEDS: CLARITIN 10 MG PO SCH (10:58)
[2022-05-27] MEDS: VITAMIN D PO SCH (10:58)
[2022-05-27] MEDS: ECOTRIN 81 MG PO SCH (10:58)
[2022-05-27] MEDS: Calcium 500MG W/Vit D Tablet PO SCH ×3 (10:58→21:05)
[2022-05-27] MEDS: THERAGRAN MULTIVITAMIN PO SCH (10:58)
[2022-05-27] MEDS: Cymbalta 30 MG Capsule PO SCH ×2 (10:58→21:04)
[2022-05-27] MEDS: Ditropan XL 5 MG PO SCH (10:58)
[2022-05-27] MEDS: Docusate Sodium 100 MG PO SCH ×2 (10:58→21:05)
[2022-05-27] MEDS: TYLENOL EXTRA STRENGTH 500 MG PO PRN ×2 (10:59→23:45)
[2022-05-27] MEDS: NEURONTIN PO SCH ×3 (10:59→21:05)
[2022-05-27] MEDS: THEOPHYLLINE ER 24HR PO SCH ×2 (10:59→21:05)
[2022-05-27] MEDS: MYSOLINE 50MG PO SCH ×3 (10:59→21:05)
[2022-05-27] MEDS: JARDIANCE PO SCH (11:14)
[2022-05-27] MEDS: ENOXAPARIN SODIUM SQ SCH (11:19)
[2022-05-27] MEDS: PATIENT OWN MEDICATION PO SCH ×2 (11:20→21:08)
[2022-05-27] MEDS: Robitussin-Dm Syrup PO SCH ×2 (11:20→21:06)
[2022-05-27] MEDS: Zithromax 500 MG/ 250 ML NaCl Premix 500 MG/250 ML IVPB IV SCH (11:37)
[2022-05-27] MEDS ORDERED: LOTRIMIN CREAM 30 GM TP ONE (12:14)
--- NOTE | 2022-05-27 12:19 | PCM.NOTE ---
Date and Time: 05/27/22 1206 Subjective Assessment: Patient is feeling better up in chair,still having shortness of breath with any activity on 3L O2. His sister is here at bedside and states he has worsening or redness in the groin. Objective Exam General Appearance: no apparent distress Neurologic Exam: alert, oriented x 3, cooperative, normal mood/affect Skin Exam: normal color, warm, dry Ears, Nose, Throat Exam: normal ENT inspection Neck Exam: normal inspection Respiratory Exam: wheezing (eew all lung fuentes (had albuterol neb tx this morning)) Cardiovascular Exam: regular rate/rhythm Gastrointestinal/Abdomen Exam: soft, No tenderness Extremity Exam: normal inspection Male Genitalia Exam: other (erythema in groin and under scrotum) OBJECTIVE DATA Vital Signs: Vital Signs - 24 hr Temp Pulse Resp BP Pulse Ox 05/27/22 07:54 97.9 F 95 H 20 130/84 93 L 05/27/22 06:43 95 H 20 93 L 05/27/22 03:48 97.8 F 87 20 141/79 94 L 05/27/22 01:24 84 20 95 05/26/22 23:42 97.8 F 83 20 156/74 93 L 05/26/22 19:29 83 22 95 05/26/22 19:27 97.3 F 91 H 22 135/61 96 05/26/22 16:00 97.5 F 90 132/66 95 05/26/22 13:55 100 H 18 92 L Pain Assessment - Last Documented Pain Intensity 2 Pain Scale Used [facility] Intake and Output: Intake & Output 05/25/22 05/26/22 05/27/22 05/28/22 11:59 11:59 11:59 11:59 Intake Total 4353 3993 5178 Output Total 3650 3325 3995 Balance 906 185 6971 Lab Results: Lab Results-Last 24 Hours 05/26/22 05/26/22 05/27/22 Range/Units 16:58 20:47 04:25 WBC 11.3 H (4.0-10.5) x10^3/uL RBC 3.84 L (4.1-5.6) x10^6/uL Hgb 10.9 L (12.5-18.0) g/dL Hct 34.9 L (42-50) % MCV 90.9 (78-100) fL MCH 28.4 (26-32) pg MCHC 31.2 L (32-36) g/dL RDW 14.7 H (11.5-14.0) % Plt Count 183 (150-450) x10^3/uL MPV 10.1 (7.5-11.0) fL Segmented Neutrophils 48 (36.-66.) % Lymphocytes (Manual) 49 H (24-44) % Monocytes (Manual) 1 (0.0-12.0) % Eosinophils (Manual) 2 (0.00-3.0) % Platelet Estimate NORMAL (NORMAL) RBC Morphology ABNORMAL Polychromasia 1+ Anisocytosis 1+ Sodium (137-145) mmol/L Potassium (3.5-5.1) mmol/L Chloride (98-107) mmol/L Carbon Dioxide (22-30) mmol/L Anion Gap (5-15) MEQ/L BUN (9-20) mg/dL Creatinine (0.66-1.25) mg/dL Estimated GFR ML/MIN Glucose (74-106) mg/dL POC Glucometer 218 H 182 H (74 to 106) mg/dL Calcium (8.4-10.2) mg/dL Total Bilirubin (0.2-1.3) mg/dL AST (17-59) U/L ALT (0-50) U/L Alkaline Phosphatase (38-126) U/L Serum Total Protein (6.3-8.2) g/dL Albumin (3.5-5.0) g/dL 05/27/22 05/27/22 05/27/22 Range/Units 04:25 07:42 11:36 WBC (4.0-10.5) x10^3/uL RBC (4.1-5.6) x10^6/uL Hgb (12.5-18.0) g/dL Hct (42-50) % MCV (78-100) fL MCH (26-32) pg MCHC (32-36) g/dL RDW (11.5-14.0) % Plt Count (150-450) x10^3/uL MPV (7.5-11.0) fL Segmented Neutrophils (36.-66.) % Lymphocytes (Manual) (24-44) % Monocytes (Manual) (0.0-12.0) % Eosinophils (Manual) (0.00-3.0) % Platelet Estimate (NORMAL) RBC Morphology Polychromasia Anisocytosis Sodium 140 (137-145) mmol/L Potassium 3.6 (3.5-5.1) mmol/L Chloride 103 (98-107) mmol/L Carbon Dioxide 30 (22-30) mmol/L Anion Gap 10.9 (5-15) MEQ/L BUN 6 L (9-20) mg/dL Creatinine 0.62 L (0.66-1.25) mg/dL Estimated GFR > 60.0 ML/MIN Glucose 184 H (74-106) mg/dL POC Glucometer 209 H 168 H (74 to 106) mg/dL Calcium 9.2 (8.4-10.2) mg/dL Total Bilirubin 0.20 (0.2-1.3) mg/dL AST 37 (17-59) U/L ALT 34 (0-50) U/L Alkaline Phosphatase 47 (38-126) U/L Serum Total Protein 6.5 (6.3-8.2) g/dL Albumin 3.4 L (3.5-5.0) g/dL Multi-Disciplinary Progress Notes: Multi-Disciplinary Progress Notes 05/27/22 11:12 Case Management Note by Nadege Brand S/Lew MACHADO- SHE CONTINUES TO DENY ANY NEW NEEDS. PATIENT HAS 24 HR CARE AT HOME AND HAS NOC OXYGEN THRU [facility]ERSONS. IF PATIENT NEEDS THIS DURING THE DAY IT WILL NEED ORDERED. Initialized on 05/27/22 11:12 - END OF NOTE Assessment/Plan (1) Aspiration pneumonia Current Visit: Yes Status: Acute Assessment & Plan: WBC improved,still elevated Code(s): J69.0 - PNEUMONITIS DUE TO INHALATION OF FOOD AND VOMIT (2) Tinea cruris Current Visit: Yes Status: Acute Assessment & Plan: start Diflucan and mycostatin powder Code(s): B35.6 - TINEA CRURIS (3) Wheezing Current Visit: Yes Status: Chronic Assessment & Plan: continue RT albuterol treatments Code(s): R06.2 - WHEEZING
[2022-05-27] MEDS: Nizoral CREAM TOP SCH ×2 (14:01→21:08)
[2022-05-27] MEDS: Flomax 0.4 MG PO SCH (21:05)
[2022-05-27] MEDS: ZOCOR 20MG PO SCH (21:05)
[2022-05-28] MEDS: PROVENTIL 2.5 MG/3 ML NEB IH SCH ×4 (01:11→18:55)
[2022-05-28] MEDS: Sodium Chloride 0.9% 1000 ML 1,000 ML IV SCH ×2 (04:14→14:17)
[2022-05-28] MEDS: PIPERACILLIN/TAZOBACTAM 3.375 GM in Sodium Chloride 100ML MINI-BAG PLUS 100 ML IV SCH ×4 (05:38→23:07)
[2022-05-28] MEDS: Advair Hfa 230/21 Mcg COMMON CANISTER IH SCH ×2 (06:48→18:56)
[2022-05-28] MEDS: Miralax Powder 17GM PACKET PO PRN (08:04)
[2022-05-28] MEDS: HUMALOG SQ SCH ×3 (08:10→17:15)
[2022-05-28] MEDS: Lantus Insulin SQ SCH (08:10)
[2022-05-28] MEDS: ECOTRIN 81 MG PO SCH (08:12)
[2022-05-28] MEDS: Cymbalta 30 MG Capsule PO SCH ×2 (08:12→21:26)
[2022-05-28] MEDS: Ditropan XL 5 MG PO SCH (08:13)
[2022-05-28] MEDS: Calcium 500MG W/Vit D Tablet PO SCH ×3 (08:13→21:26)
[2022-05-28] MEDS: MYSOLINE 50MG PO SCH ×3 (08:13→21:27)
[2022-05-28] MEDS: VITAMIN D PO SCH (08:13)
[2022-05-28] MEDS: THERAGRAN MULTIVITAMIN PO SCH (08:13)
[2022-05-28] MEDS: Protonix 40MG Tablet PO SCH ×2 (08:13→17:16)
[2022-05-28] MEDS: Docusate Sodium 100 MG PO SCH ×2 (08:14→21:26)
[2022-05-28] MEDS: THEOPHYLLINE ER 24HR PO SCH ×2 (08:14→21:26)
[2022-05-28] MEDS: ENOXAPARIN SODIUM SQ SCH (08:14)
[2022-05-28] MEDS: CLARITIN 10 MG PO SCH (08:14)
[2022-05-28] MEDS: Nizoral CREAM TOP SCH ×2 (08:15→23:04)
[2022-05-28] MEDS: NEURONTIN PO SCH ×3 (08:15→21:26)
[2022-05-28] MEDS: Robitussin-Dm Syrup PO SCH ×2 (08:16→21:27)
[2022-05-28] MEDS: JARDIANCE PO SCH (08:16)
[2022-05-28] MEDS: PATIENT OWN MEDICATION PO SCH ×2 (08:16→21:25)
[2022-05-28] MEDS: Zithromax 500 MG/ 250 ML NaCl Premix 500 MG/250 ML IVPB IV SCH (08:16)
[2022-05-28] MEDS: TYLENOL EXTRA STRENGTH 500 MG PO PRN (11:41)
--- NOTE | 2022-05-28 12:47 | XRAY ---
Indication: Follow-up pneumonia. Multiple contiguous axial images obtained through the chest without contrast. Comparison: May 23, 2022 Previous left lower lobe and inferior lingula consolidating airspace disease has improved with now mild consolidating residual. Previous right midlung patchy airspace disease appears minimally larger. New right base subsegmental atelectasis. No effusion. Heart not enlarged again with scattered coronary calcifications. Aorta remains normal in course and caliber. Prominent mediastinal lymph nodes have diminished in size. Esophagus is now mild fluid distended throughout presumed GERD. Bony thorax intact again with mild degenerative changes throughout the spine. Limited upper abdomen demonstrates markedly distended fluid distended stomach. Again incidental mild fatty liver and fecal stasis. Impression: 1. Interval improvement lingula and left lower lobe airspace disease with now mild consolidating residual. Minimally worsening right midlung patchy airspace disease. 2. New fluid distended esophagus favoring GERD. 3. Again fatty liver and fecal stasis.
[2022-05-28] MEDS: ZOCOR 20MG PO SCH (21:26)
[2022-05-28] MEDS: Flomax 0.4 MG PO SCH (21:27)
[2022-05-28] MEDS: HUMALOG SQ PRN (21:29)
[2022-05-29] MEDS: PROVENTIL 2.5 MG/3 ML NEB IH SCH ×3 (00:49→12:57)
[2022-05-29 05:14] LABS: Hematocrit 33.4 % (42-50); Hemoglobin 10.3 g/dL (12.5-18.0); Mean Cell Volume 90.5 fL (78-100); Mean Corpuscular Hemoglobin 27.9 pg (26-32); Mean Corpuscular Hgb Concent. 30.8 g/dL (32-36); Mean Platelet Volume 10.1 fL (7.5-11.0); Platelet Count 201 x10^3/uL (150-450); Red Blood Count 3.69 x10^6/uL (4.1-5.6); Red Cell Distribution Width 14.4 % (11.5-14.0); White Blood Count 13.7 x10^3/uL (4.0-10.5)
[2022-05-29] MEDS: PIPERACILLIN/TAZOBACTAM 3.375 GM in Sodium Chloride 100ML MINI-BAG PLUS 100 ML IV SCH (05:41)
[2022-05-29 05:45] LABS: ANION GAP 9.7 MEQ/L (5-15); BLOOD UREA NITROGEN 7 mg/dL (9-20); CHLORIDE 99 mmol/L (98-107); Calcium 9.2 mg/dL (8.4-10.2); Carbon Dioxide 32 mmol/L (22-30); Creatinine 1 0.65 mg/dL (0.66-1.25); EST GLOMERULAR FILTRATION RATE > 60.0 ML/MIN; Glucose 142 mg/dL (74-106); Potassium 3.7 mmol/L (3.5-5.1); SODIUM 137 mmol/L (137-145)
[2022-05-29] MEDS: Spiriva 18 Mcg/Cap Inhaler IH SCH (07:08)
[2022-05-29] MEDS: Advair Hfa 230/21 Mcg COMMON CANISTER IH SCH (07:08)
[2022-05-29] MEDS: Lantus Insulin SQ SCH (07:36)
[2022-05-29] MEDS: Protonix 40MG Tablet PO SCH (07:36)
[2022-05-29] MEDS: HUMALOG SQ SCH ×2 (07:36→12:09)
[2022-05-29] MEDS: ECOTRIN 81 MG PO SCH (09:29)
[2022-05-29] MEDS: Docusate Sodium 100 MG PO SCH (09:29)
[2022-05-29] MEDS: VITAMIN D PO SCH (09:29)
[2022-05-29] MEDS: Calcium 500MG W/Vit D Tablet PO SCH ×2 (09:29→15:18)
[2022-05-29] MEDS: Ditropan XL 5 MG PO SCH (09:29)
[2022-05-29] MEDS: Cymbalta 30 MG Capsule PO SCH (09:29)
[2022-05-29] MEDS: TYLENOL EXTRA STRENGTH 500 MG PO PRN (09:30)
[2022-05-29] MEDS: MYSOLINE 50MG PO SCH ×2 (09:30→15:18)
[2022-05-29] MEDS: ENOXAPARIN SODIUM SQ SCH (09:30)
[2022-05-29] MEDS: NEURONTIN PO SCH ×2 (09:30→15:18)
[2022-05-29] MEDS: THERAGRAN MULTIVITAMIN PO SCH (09:30)
[2022-05-29] MEDS: CLARITIN 10 MG PO SCH (09:30)
[2022-05-29] MEDS: Zithromax 500 MG/ 250 ML NaCl Premix 500 MG/250 ML IVPB IV SCH (09:31)
[2022-05-29] MEDS: THEOPHYLLINE ER 24HR PO SCH (09:31)
[2022-05-29] MEDS: JARDIANCE PO SCH (09:31)
[2022-05-29] MEDS: Robitussin-Dm Syrup PO SCH (09:31)
[2022-05-29] MEDS: Nizoral CREAM TOP SCH (09:32)
[2022-05-29] MEDS: PATIENT OWN MEDICATION PO SCH (09:35)
[2022-05-29 11:20] VITALS: BP 183/72
[2022-05-29] MEDS: Sodium Chloride 0.9% 1000 ML 1,000 ML IV SCH (11:40)
[2022-05-29 12:07] LABS: INFLUENZA A NEGATIVE (NEGATIVE); INFLUENZA B NEGATIVE (NEGATIVE); RESPIRATORY SYNCTIAL VIRUS NEGATIVE (Negative); SARS-CoV-2 Xpert Express NEGATIVE (NEGATIVE)
[2022-05-29 13:00] VITALS: PULSE 109; O2SAT 93
== END 2022-05-29 16:15 | DRG 178 ==
LOC: ED 07:00 → MED SURG 11:02 → OBSVTOIN 05-24 08:00
PROVIDERS: ADMIT Family Medicine; ATTEND Family Medicine
DX: J69.0 Pneumonitis due to inhalation of food and vomit (principal); N39.0 Urinary tract infection, site not specified; B35.6 Tinea cruris; E11.9 Type 2 diabetes mellitus without complications; R06.2 Wheezing; Z79.899 Other long term (current) drug therapy; Z20.828 Contact with and (suspected) exposure to other viral communicable diseases; Z87.820 Personal history of traumatic brain injury; Z99.81 Dependence on supplemental oxygen
CPT/HCPCS: 0241U; 36000; 36415; 36600; 71045; 71250; 71260; 80048; 80053; 80198; 81015; 82375; 82803; 82947; 83036; 83605; 83880; 84484; 85025; 85027; 85379; 85610; 85730; 87040; 87086; 93005; 94640; 94760; 96360; 96365; 96367; 99285; 99291; G0378; J0456; J0696; J1650; J1817; J2270; J7609; A9270-GY

== ENCOUNTER 2022-09-03 07:40 | Emergency (ER) | payer MEDICARE ==
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
[2022-09-03] MEDS ORDERED: Sodium Chloride 0.9% 1000 ML 1,000 ML IV SCH (08:00)
[2022-09-03] MEDS ORDERED: Sodium Chloride 0.9% 1000 ML 1,000 ML ONE (08:20)
[2022-09-03 08:33] LABS: Hematocrit 41.7 % (42-50); Hemoglobin 13.2 g/dL (12.5-18.0); Mean Cell Volume 89.5 fL (78-100); Mean Corpuscular Hemoglobin 28.3 pg (26-32); Mean Corpuscular Hgb Concent. 31.7 g/dL (32-36); Mean Platelet Volume 10.8 fL (7.5-11.0); Platelet Count 153 x10^3/uL (150-450); Red Blood Count 4.66 x10^6/uL (4.1-5.6); Red Cell Distribution Width 14.7 % (11.5-14.0); White Blood Count 15.8 x10^3/uL (4.0-10.5)
[2022-09-03 09:07] LABS: ALBUMIN 4.3 g/dL (3.5-5.0); ALKALINE PHOSPHATASE 55 U/L (38-126); ANION GAP 12.9 MEQ/L (5-15); BLOOD UREA NITROGEN 13 mg/dL (9-20); CHLORIDE 101 mmol/L (98-107); Calcium 9.7 mg/dL (8.4-10.2); Carbon Dioxide 28 mmol/L (22-30); Creatinine 1 0.78 mg/dL (0.66-1.25); EST GLOMERULAR FILTRATION RATE > 60.0 ML/MIN; Glucose 175 mg/dL (74-106); NT PRO BNP 53.9 pg/mL (0-900); Potassium 4.1 mmol/L (3.5-5.1); SGOT/AST 34 U/L (17-59); SGPT/ALT 24 U/L (0-50); SODIUM 138 mmol/L (137-145); Total Protein 7.2 g/dL (6.3-8.2)
[2022-09-03 09:12] LABS: INFLUENZA A NEGATIVE (NEGATIVE); INFLUENZA B NEGATIVE (NEGATIVE); RESPIRATORY SYNCTIAL VIRUS NEGATIVE (Negative); SARS-CoV-2 Xpert Express NEGATIVE (NEGATIVE)
[2022-09-03 09:13] LABS: BAND 2 % (0.0-2.0); Eosinophil 4 % (0.00-3.0); Lymphocytes 40 % (24-44); Monocyte 2 % (0.0-12.0); Neutrophils 52 % (36.-66.); Total Cells Counted 100
[2022-09-03 09:14] LABS: Platelet Estimate NORMAL (NORMAL)
--- NOTE | 2022-09-03 09:46 | XRAY ---
Indication: Fever and short of breath. Comparison: May 23, 2022 Portable chest demonstrates minimal bibasilar subsegmental atelectasis/scarring. Remaining heart and lungs unremarkable. Bony thorax intact again with osteopenia and mild degenerative changes. No acute findings.
[2022-09-03] MEDS ORDERED: solu-MEDROL 125 MG, Sterile H2O 10 ml 2 ML IV ONE ×2 (09:49)
[2022-09-03] MEDS ORDERED: ROCEPHIN 1 Gm-D5w 50 ml Bag** 1 G/50 ML IVPB IV STA (09:49)
[2022-09-03] MEDS ORDERED: Sterile H2O 10 ml IJ ONE (10:10)
[2022-09-03] MEDS ORDERED: solu-MEDROL ONE (10:11)
[2022-09-03] MEDS ORDERED: ROCEPHIN 1 Gm-D5w 50 ml Bag** 1 G/50 ML IVPB IV ONE (10:11)
[2022-09-03 10:56] VITALS: O2SAT 97
[2022-09-03 11:37] VITALS: BP 129/66; PULSE 96
== END 2022-09-03 11:59 | disposition home or self-care (01) ==
LOC: ED 07:40
DX: R06.02 Shortness of breath (principal); R50.9 Fever, unspecified; D72.829 Elevated white blood cell count, unspecified; E78.5 Hyperlipidemia, unspecified; E11.42 Type 2 diabetes mellitus with diabetic polyneuropathy; Z79.4 Long term (current) use of insulin; Z79.899 Other long term (current) drug therapy
CPT/HCPCS: 0241U; 36000; 36415; 71045; 80053; 80164; 83605; 83880; 84484; 85025; 85379; 87040; 87070; 87077; 93005; 94760; 96365; 96374; 99284; 87186; J0696; J2930

== ENCOUNTER 2022-10-08 23:54 | Inpatient (IN) | payer MEDICARE ==
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
[2022-10-09] MEDS ORDERED: Sodium Chloride 0.9% 1000 ML 1,000 ML IV STA (00:07)
[2022-10-09] MEDS ORDERED: solu-MEDROL 125 MG, Sterile H2O 10 ml 2 ML IV ONE ×2 (00:07)
[2022-10-09] MEDS ORDERED: PIPERACILLIN/TAZOBACTAM 3.375 GM in Sodium Chloride 100ML MINI-BAG PLUS 100 ML IV ONE (00:11)
[2022-10-09] MEDS ORDERED: VANCOMYCIN 1 GRAM/200 ML BAG 1 GM/200 ML PIGGYBACK IV ONE (00:11)
[2022-10-09] MEDS ORDERED: PIPERACILLIN/TAZOBACTAM IV ONE (00:24)
[2022-10-09] MEDS ORDERED: Sodium Chloride 0.9% 1000 ML 1,000 ML ONE (00:25)
[2022-10-09 00:27] LABS: Lactic Acid 1.3 (0.4-2.0); VBG BASE EXCESS 7.2 (-2.0-2.0); VBG CARBOXYHEMOGLOBIN 1.9 % T HGB (0.0-6.9); VBG HCO3- 31.2 meq/L (22-28); VBG HEMOGLOBIN 13.9; VBG O2 SATURATION 58.9 (95-100); VBG POTASSIUM 3.7 (3.5-5.1); VBG pH 7.49 (7.32-7.42)
[2022-10-09] MEDS ORDERED: Sodium Chloride 100ML MINI-BAG PLUS 100 ML IV ONE (00:28)
[2022-10-09 00:48] LABS: Hematocrit 41.8 % (42-50); Mean Cell Volume 88.9 fL (78-100); Mean Corpuscular Hemoglobin 27.7 pg (26-32); Mean Corpuscular Hgb Concent. 31.1 g/dL (32-36); Mean Platelet Volume 10.2 fL (7.5-11.0); Platelet Count 174 x10^3/uL (150-450); Red Cell Distribution Width 15.1 % (11.5-14.0); White Blood Count 14.1 x10^3/uL (4.0-10.5)
[2022-10-09 01:12] LABS: ALBUMIN 4.2 g/dL (3.5-5.0); ALKALINE PHOSPHATASE 53 U/L (38-126); ANION GAP 12.3 MEQ/L (5-15); BLOOD UREA NITROGEN 20 mg/dL (9-20); CHLORIDE 99 mmol/L (98-107); Calcium 9.4 mg/dL (8.4-10.2); Carbon Dioxide 31 mmol/L (22-30); Creatinine 1 0.91 mg/dL (0.66-1.25); EST GLOMERULAR FILTRATION RATE > 60.0 ML/MIN; Glucose 114 mg/dL (74-106); MAGNESIUM 1.8 mg/dL (1.6-2.3); Potassium 3.6 mmol/L (3.5-5.1); SGOT/AST 34 U/L (17-59); SGPT/ALT 26 U/L (0-50); SODIUM 139 mmol/L (137-145); Total Protein 7.3 g/dL (6.3-8.2)
[2022-10-09 01:27] LABS: Appearance Clear (Clear); Bilirubin Negative (Negative); Blood Negative (Negative); Glucose, Urine >=1000 mg/dL (Negative); Ketones Trace (Negative); Leukocyte Esterase Negative (Negative); Nitrite Negative (Negative); Ph 7.5 (4.6-8.0); Protein,Urine Dip Negative (Negative); Specific Gravity >=1.030 (1.005-1.030); Urobilinogen 0.2 mg/dL (0.2)
[2022-10-09 01:35] LABS: INFLUENZA A NEGATIVE (NEGATIVE); INFLUENZA B NEGATIVE (NEGATIVE); RESPIRATORY SYNCTIAL VIRUS NEGATIVE (NEGATIVE); SARS-CoV-2 Xpert Express NEGATIVE (NEGATIVE)
[2022-10-09] MEDS ORDERED: SODIUM CHLORIDE 0.9% W/ 40 mEq KCL 1000ML 1,000 ML IV SCH (02:00)
[2022-10-09 02:01] LABS: ADD URINE CULTURE? NO (NO); Bacteria None Seen /HPF (None Seen); Epithelial Cells Rare /HPF (None Seen); WBC NONE SEEN /HPF (0-5)
[2022-10-09 03:00] LABS: Eosinophil 1 % (0.00-3.0); Lymphocytes 36 % (24-44); Monocyte 7 % (0.0-12.0); Neutrophils 56 % (36.-66.); Total Cells Counted 100
[2022-10-09 03:09] LABS: ANISOCYTOSIS 1+; Platelet Estimate NORMAL (NORMAL); Polychromasia 1+
[2022-10-09] MEDS ORDERED: solu-MEDROL ONE (04:04)
[2022-10-09] MEDS ORDERED: Sterile H2O 10 ml IJ ONE (04:05)
[2022-10-09] MEDS ORDERED: Spiriva 18 Mcg/Cap Inhaler IH ONE (04:34)
[2022-10-09] MEDS: DUONEB 0.5-3 MG/3 ml Neb IH SCH ×6 (05:00→22:10)
[2022-10-09] MEDS: Spiriva 18 Mcg/Cap Inhaler IH SCH (05:00)
[2022-10-09] MEDS: solu-MEDROL 60 MG, Sterile H2O 10 ml 2 ML IV SCH ×8 (05:17→23:02)
[2022-10-09 05:29] LABS: Hematocrit 38.5 % (42-50); Hemoglobin 12.2 g/dL (12.5-18.0); Mean Cell Volume 88.1 fL (78-100); Mean Corpuscular Hemoglobin 27.9 pg (26-32); Mean Corpuscular Hgb Concent. 31.7 g/dL (32-36); Mean Platelet Volume 10.4 fL (7.5-11.0); Platelet Count 178 x10^3/uL (150-450); Red Blood Count 4.37 x10^6/uL (4.1-5.6); Red Cell Distribution Width 15.4 % (11.5-14.0); White Blood Count 18.9 x10^3/uL (4.0-10.5)
[2022-10-09 06:03] LABS: ANION GAP 11.3 MEQ/L (5-15); BLOOD UREA NITROGEN 18 mg/dL (9-20); CHLORIDE 101 mmol/L (98-107); Calcium 9.1 mg/dL (8.4-10.2); Carbon Dioxide 29 mmol/L (22-30); Creatinine 1 0.86 mg/dL (0.66-1.25); EST GLOMERULAR FILTRATION RATE > 60.0 ML/MIN; Glucose 184 mg/dL (74-106); MAGNESIUM 1.9 mg/dL (1.6-2.3); Potassium 4.2 mmol/L (3.5-5.1); SODIUM 137 mmol/L (137-145)
--- NOTE | 2022-10-09 08:51 | XRAY ---
Indication: Short of breath. Comparison: September 03, 2022 Portable apical lordotic chest again demonstrates minimal bibasilar subsegmental atelectasis/scarring. Remaining heart and upper lungs unremarkable. Bony thorax intact again with osteopenia and degenerative changes. No new/acute abnormalities.
[2022-10-09] MEDS: Pepcid 20 MG PO SCH ×2 (10:44→21:02)
[2022-10-09] MEDS: Mucinex 600MG ER Tabs PO SCH ×2 (10:44→21:02)
[2022-10-09] MEDS: ENOXAPARIN SODIUM SQ SCH (10:44)
[2022-10-09] MEDS: Zithromax 500 MG/ 250 ML NaCl Premix 500 MG/250 ML IVPB IV SCH (10:45)
[2022-10-09] MEDS: ROCEPHIN 1 Gm-D5w 50 ml Bag** 1 G/50 ML IVPB IV SCH (10:45)
[2022-10-09] MEDS: Sodium Chloride 0.9% 1000 ML 1,000 ML IV SCH ×2 (10:45→21:07)
[2022-10-09] MEDS: HUMALOG SQ PRN ×3 (12:29→21:13)
[2022-10-09] MEDS ORDERED: Miralax Powder 17GM PACKET PO PRN (12:38)
[2022-10-09] MEDS ORDERED: TYLENOL EXTRA STRENGTH 500 MG PO PRN (12:38)
[2022-10-09] MEDS: Ditropan XL 5 MG PO SCH (14:24)
[2022-10-09] MEDS: NEURONTIN PO SCH ×2 (14:25→21:02)
[2022-10-09] MEDS: VITAMIN D PO SCH (14:25)
[2022-10-09] MEDS: CLARITIN 10 MG PO SCH (14:25)
[2022-10-09] MEDS: ECOTRIN 81 MG PO SCH (14:25)
[2022-10-09] MEDS: Calcium 500MG W/Vit D Tablet PO SCH (14:25)
[2022-10-09] MEDS: Cymbalta 30 MG Capsule PO SCH ×2 (14:25→21:02)
[2022-10-09] MEDS: MYSOLINE 50MG PO SCH ×2 (14:25→21:02)
[2022-10-09] MEDS: THEOPHYLLINE ER 24HR PO SCH ×2 (14:26→21:02)
[2022-10-09] MEDS: Lantus Insulin SQ SCH (14:26)
[2022-10-09] MEDS: JARDIANCE PO SCH (14:27)
[2022-10-09] MEDS ORDERED: ACARBOSE 50 MG PO SCH (15:00)
[2022-10-09] MEDS ORDERED: NON-FORMULARY ITEM (Omeprazole [Omeprazole] 40 MG Capsule.Dr) PO SCH (16:30)
[2022-10-09] MEDS: NON-FORMULARY ITEM PO SCH (17:18)
[2022-10-09] MEDS: Protonix 40MG Tablet PO SCH (17:18)
[2022-10-09] MEDS: Advair Hfa 115/21 Common canister IH SCH (18:41)
[2022-10-09] MEDS: ZOCOR 20MG PO SCH (21:02)
[2022-10-09] MEDS: Flomax 0.4 MG PO SCH (21:02)
[2022-10-09] MEDS: Docusate Sodium 100 MG PO SCH (21:02)
[2022-10-09] MEDS ORDERED: DEXTROMETHORPHAN HBR 15 MG PO SCH (22:00)
[2022-10-09] MEDS ORDERED: FLUTICASONE-SALMETEROL 250-50 IH SCH (22:00)
[2022-10-09] MEDS ORDERED: ALGAL OIL PO SCH (22:00)
[2022-10-09] MEDS ORDERED: LIPITOR 40MG PO SCH (22:00)
[2022-10-09] MEDS ORDERED: NON-FORMULARY ITEM (Duloxetine Hcl [Cymbalta] 60 MG Capsule.Dr) PO SCH (22:00)
[2022-10-09] MEDS ORDERED: LEVOMEFOLATE PO SCH (22:00)
[2022-10-09] MEDS ORDERED: [UNRECOGNIZED DRUG - OTHER] PO SCH (22:00)
[2022-10-10] MEDS: PROVENTIL 2.5 MG/3 ML NEB IH SCH ×6 (02:55→22:50)
[2022-10-10 05:01] LABS: Hematocrit 39.6 % (42-50); Hemoglobin 12.4 g/dL (12.5-18.0); Mean Cell Volume 88.4 fL (78-100); Mean Corpuscular Hemoglobin 27.7 pg (26-32); Mean Corpuscular Hgb Concent. 31.3 g/dL (32-36); Mean Platelet Volume 10.9 fL (7.5-11.0); Platelet Count 197 x10^3/uL (150-450); Red Blood Count 4.48 x10^6/uL (4.1-5.6); Red Cell Distribution Width 15.3 % (11.5-14.0); White Blood Count 18.4 x10^3/uL (4.0-10.5)
[2022-10-10] MEDS: solu-MEDROL 60 MG, Sterile H2O 10 ml 2 ML IV SCH ×8 (05:08→23:18)
[2022-10-10] MEDS: Sodium Chloride 0.9% 1000 ML 1,000 ML IV SCH ×2 (05:54→18:40)
[2022-10-10 06:21] LABS: ALBUMIN 3.9 g/dL (3.5-5.0); ALKALINE PHOSPHATASE 53 U/L (38-126); ANION GAP 16.8 MEQ/L (5-15); BLOOD UREA NITROGEN 10 mg/dL (9-20); CHLORIDE 100 mmol/L (98-107); Calcium 9.5 mg/dL (8.4-10.2); Carbon Dioxide 29 mmol/L (22-30); Creatinine 1 0.63 mg/dL (0.66-1.25); EST GLOMERULAR FILTRATION RATE > 60.0 ML/MIN; Glucose 188 mg/dL (74-106); Potassium 3.8 mmol/L (3.5-5.1); SGOT/AST 35 U/L (17-59); SGPT/ALT 28 U/L (0-50); SODIUM 142 mmol/L (137-145); Total Protein 6.8 g/dL (6.3-8.2)
[2022-10-10] MEDS: Advair Hfa 115/21 Common canister IH SCH ×2 (07:22→19:17)
[2022-10-10] MEDS: Spiriva 18 Mcg/Cap Inhaler IH SCH (07:23)
[2022-10-10] MEDS: Protonix 40MG Tablet PO SCH ×2 (07:50→15:48)
[2022-10-10] MEDS: NON-FORMULARY ITEM PO SCH ×3 (07:50→18:04)
[2022-10-10] MEDS: HUMALOG SQ PRN ×3 (09:07→21:15)
[2022-10-10] MEDS ORDERED: NON-FORMULARY ITEM (Multivitamin [Multivitamins] 1 EACH Capsule) PO SCH (10:00)
[2022-10-10] MEDS ORDERED: NON-FORMULARY ITEM (Oxybutynin Chloride [Oxybutynin Chloride Er] 10 MG Tab.Er.24) PO SCH (10:00)
[2022-10-10] MEDS: Ditropan XL 5 MG PO SCH (10:37)
[2022-10-10] MEDS: Mucinex 600MG ER Tabs PO SCH ×2 (10:37→21:15)
[2022-10-10] MEDS: ECOTRIN 81 MG PO SCH (10:37)
[2022-10-10] MEDS: CLARITIN 10 MG PO SCH (10:37)
[2022-10-10] MEDS: Docusate Sodium 100 MG PO SCH ×2 (10:37→21:15)
[2022-10-10] MEDS: Calcium 500MG W/Vit D Tablet PO SCH (10:37)
[2022-10-10] MEDS: NEURONTIN PO SCH ×3 (10:37→21:17)
[2022-10-10] MEDS: THERAGRAN MULTIVITAMIN PO SCH (10:37)
[2022-10-10] MEDS: Pepcid 20 MG PO SCH ×2 (10:38→21:15)
[2022-10-10] MEDS: VITAMIN D PO SCH (10:38)
[2022-10-10] MEDS: Cymbalta 30 MG Capsule PO SCH ×3 (10:38→21:14)
[2022-10-10] MEDS: THEOPHYLLINE ER 24HR PO SCH ×2 (10:39→21:16)
[2022-10-10] MEDS: Lantus Insulin SQ SCH (10:39)
[2022-10-10] MEDS: JARDIANCE PO SCH (10:39)
[2022-10-10] MEDS: MYSOLINE 50MG PO SCH ×3 (10:39→21:15)
[2022-10-10] MEDS: ENOXAPARIN SODIUM SQ SCH (10:39)
[2022-10-10] MEDS: ROCEPHIN 1 Gm-D5w 50 ml Bag** 1 G/50 ML IVPB IV SCH (10:40)
[2022-10-10] MEDS: Zithromax 500 MG/ 250 ML NaCl Premix 500 MG/250 ML IVPB IV SCH (12:52)
--- NOTE | 2022-10-10 15:50 | PCM.NOTE ---
Date and Time: 10/10/22 1548 Subjective Assessment: VSS on 3L O2/NC. Sister at bedside states some improvement cough ,wheezing . Is eating ok. Objective Exam General Appearance: no apparent distress Neurologic Exam: alert, oriented x 3, cooperative, normal mood/affect Skin Exam: normal color, warm, dry Ears, Nose, Throat Exam: normal ENT inspection Neck Exam: normal inspection Respiratory Exam: rhonchi, wheezing (scattered) Cardiovascular Exam: regular rate/rhythm Gastrointestinal/Abdomen Exam: soft, normal bowel sounds Extremity Exam: normal inspection OBJECTIVE DATA Vital Signs: Vital Signs - 24 hr Temp Pulse Resp BP Pulse Ox 10/10/22 15:31 92 H 18 95 10/10/22 11:26 90 18 95 10/10/22 11:04 98.0 F 91 H 16 136/63 95 10/10/22 07:35 92 H 18 94 L 10/10/22 07:08 98.6 F 84 18 145/70 93 L 10/10/22 05:00 95 10/10/22 03:50 98.2 F 76 22 165/73 94 L 10/10/22 02:55 77 20 94 L 10/09/22 23:36 98.0 F 90 20 127/59 95 10/09/22 22:10 87 20 97 10/09/22 19:48 97.1 F 82 19 132/61 96 10/09/22 18:43 77 18 97 10/09/22 16:00 98.0 F 79 16 142/73 97 Oxygen-Last 24 hours Oxygen Flowrate (L/min)-RT 3 Pain Assessment - Last Documented Pain Intensity 0 Intake and Output: Intake & Output 10/08/22 10/09/22 10/10/22 10/11/22 11:59 11:59 11:59 11:59 Intake Total 1180 5511 Output Total 450 4125 Balance 730 1386 Weight 77.8 kg 77.8 kg Lab Results: Lab Results-Last 24 Hours 10/09/22 10/09/22 10/10/22 Range/Units 16:19 21:03 04:11 WBC 18.4 H (4.0-10.5) x10^3/uL RBC 4.48 (4.1-5.6) x10^6/uL Hgb 12.4 L (12.5-18.0) g/dL Hct 39.6 L (42-50) % MCV 88.4 (78-100) fL MCH 27.7 (26-32) pg MCHC 31.3 L (32-36) g/dL RDW 15.3 H (11.5-14.0) % Plt Count 197 (150-450) x10^3/uL MPV 10.9 (7.5-11.0) fL Sodium (137-145) mmol/L Potassium (3.5-5.1) mmol/L Chloride (98-107) mmol/L Carbon Dioxide (22-30) mmol/L Anion Gap (5-15) MEQ/L BUN (9-20) mg/dL Creatinine (0.66-1.25) mg/dL Estimated GFR ML/MIN Glucose (74-106) mg/dL POC Glucometer 259 H 283 H (74 to 106) mg/dL Calcium (8.4-10.2) mg/dL Total Bilirubin (0.2-1.3) mg/dL AST (17-59) U/L ALT (0-50) U/L Alkaline Phosphatase (38-126) U/L Serum Total Protein (6.3-8.2) g/dL Albumin (3.5-5.0) g/dL 10/10/22 10/10/22 10/10/22 Range/Units 04:11 06:21 10:57 WBC (4.0-10.5) x10^3/uL RBC (4.1-5.6) x10^6/uL Hgb (12.5-18.0) g/dL Hct (42-50) % MCV (78-100) fL MCH (26-32) pg MCHC (32-36) g/dL RDW (11.5-14.0) % Plt Count (150-450) x10^3/uL MPV (7.5-11.0) fL Sodium 142 (137-145) mmol/L Potassium 3.8 (3.5-5.1) mmol/L Chloride 100 (98-107) mmol/L Carbon Dioxide 29 (22-30) mmol/L Anion Gap 16.8 H (5-15) MEQ/L BUN 10 (9-20) mg/dL Creatinine 0.63 L (0.66-1.25) mg/dL Estimated GFR > 60.0 ML/MIN Glucose 188 H (74-106) mg/dL POC Glucometer 206 H 260 H (74 to 106) mg/dL Calcium 9.5 (8.4-10.2) mg/dL Total Bilirubin 0.30 (0.2-1.3) mg/dL AST 35 (17-59) U/L ALT 28 (0-50) U/L Alkaline Phosphatase 53 (38-126) U/L Serum Total Protein 6.8 (6.3-8.2) g/dL Albumin 3.9 (3.5-5.0) g/dL Radiology Exams: Radiology Procedures Category Date Time Status CHEST 1 VIEW (PORTABLE) Stat Exams 10/09/22 01:10 Completed Multi-Disciplinary Progress Notes: Multi-Disciplinary Progress Notes 10/10/22 10:12 Case Management Note by Nadege Brand Addendum entered by Nadege Brand 10/10/22 10:13: SHE CONTINUES TO PLAN FOR PATIENT TO RETURN HOME TO HER CARE AT TIME OF DC Original Note: S/W ANDERSONLucina- PATIENT'S CURRENT OXYGEN ORDER IS 2-3 L 17/02. S/W CARTER- SHE REPORTS HE HAS THE PORTABILITY AND ALL THE EQUIPMENT AT HOME Initialized on 10/10/22 10:12 - END OF NOTE Assessment/Plan (1) COPD with exacerbation Current Visit: No Status: Acute Assessment & Plan: continue IV solumedrol and Zithromax and Ceftriaxone Code(s): J44.1 - CHRONIC OBSTRUCTIVE PULMONARY DISEASE W (ACUTE) EXACERBATION (2) DM2 (diabetes mellitus, type 2) Current Visit: Yes Status: Chronic Qualifiers: Diabetes mellitus penitentiary insulin use: with electro plater use Assessment & Plan: monitor
[2022-10-10] MEDS: Flomax 0.4 MG PO SCH (21:14)
[2022-10-10] MEDS: ZOCOR 20MG PO SCH (21:15)
[2022-10-11] MEDS: PROVENTIL 2.5 MG/3 ML NEB IH SCH ×6 (03:15→23:05)
[2022-10-11] MEDS: Sodium Chloride 0.9% 1000 ML 1,000 ML IV SCH (04:55)
[2022-10-11] MEDS: solu-MEDROL 60 MG, Sterile H2O 10 ml 2 ML IV SCH ×6 (04:57→16:55)
[2022-10-11] MEDS: Spiriva 18 Mcg/Cap Inhaler IH SCH (07:28)
[2022-10-11] MEDS: Advair Hfa 115/21 Common canister IH SCH ×2 (07:28→18:36)
[2022-10-11] MEDS: NON-FORMULARY ITEM PO SCH ×3 (08:17→16:56)
[2022-10-11] MEDS: Protonix 40MG Tablet PO SCH ×2 (08:17→16:56)
[2022-10-11] MEDS: ROCEPHIN 1 Gm-D5w 50 ml Bag** 1 G/50 ML IVPB IV SCH (10:31)
[2022-10-11] MEDS: VITAMIN D PO SCH (10:35)
[2022-10-11] MEDS: Mucinex 600MG ER Tabs PO SCH ×2 (10:35→22:10)
[2022-10-11] MEDS: Calcium 500MG W/Vit D Tablet PO SCH (10:35)
[2022-10-11] MEDS: NEURONTIN PO SCH ×3 (10:35→22:10)
[2022-10-11] MEDS: Docusate Sodium 100 MG PO SCH ×2 (10:35→22:11)
[2022-10-11] MEDS: MYSOLINE 50MG PO SCH ×3 (10:35→22:11)
[2022-10-11] MEDS: CLARITIN 10 MG PO SCH (10:35)
[2022-10-11] MEDS: THERAGRAN MULTIVITAMIN PO SCH (10:36)
[2022-10-11] MEDS: Pepcid 20 MG PO SCH ×2 (10:36→22:11)
[2022-10-11] MEDS: Ditropan XL 5 MG PO SCH (10:36)
[2022-10-11] MEDS: ECOTRIN 81 MG PO SCH (10:36)
[2022-10-11] MEDS: Lantus Insulin SQ SCH (10:37)
[2022-10-11] MEDS: JARDIANCE PO SCH (10:37)
[2022-10-11] MEDS: THEOPHYLLINE ER 24HR PO SCH ×2 (10:37→22:11)
[2022-10-11] MEDS: ENOXAPARIN SODIUM SQ SCH (10:38)
[2022-10-11] MEDS: Zithromax 500 MG/ 250 ML NaCl Premix 500 MG/250 ML IVPB IV SCH (11:50)
[2022-10-11] MEDS: HUMALOG SQ PRN ×3 (12:13→23:15)
--- NOTE | 2022-10-11 13:25 | PCM.NOTE ---
Date and Time: 10/11/22 1323 Subjective Assessment: Patient is more dyspnnic today lungs eew tighter today. Constipated abd is distended but no pain. Will need longer stay for COPD exacerbation. Objective Exam General Appearance: other (coughing,hard to bring up sputum clear with yellow) Neurologic Exam: alert, oriented x 3, cooperative, normal mood/affect Skin Exam: normal color, warm, dry Neck Exam: normal inspection Respiratory Exam: rhonchi (coarse scattered), wheezing (eew decreased aeration) Cardiovascular Exam: tachycardia (100) Gastrointestinal/Abdomen Exam: normal bowel sounds (nontender), distention OBJECTIVE DATA Vital Signs: Vital Signs - 24 hr Temp Pulse Resp BP Pulse Ox 10/11/22 11:26 97.9 F 85 16 156/70 94 L 10/11/22 11:18 84 18 94 L 10/11/22 07:30 90 18 91 L 10/11/22 07:25 97.9 F 81 16 169/83 92 L 10/11/22 04:00 97.8 F 94 H 20 130/61 93 L 10/11/22 03:15 88 19 95 10/11/22 00:00 98.0 F 86 21 138/61 96 10/10/22 22:50 87 18 97 10/10/22 19:55 98.1 F 96 H 18 140/66 92 L 10/10/22 19:15 96 H 22 96 10/10/22 16:00 98.4 F 111 H 18 153/63 91 L 10/10/22 15:31 92 H 18 95 Pain Assessment - Last Documented Pain Intensity 0 Intake and Output: Intake & Output 10/09/22 10/10/22 10/11/22 10/12/22 11:59 11:59 11:59 11:59 Intake Total 1180 5511 3981 Output Total 450 4125 2075 Balance 730 1386 1906 Weight 77.8 kg 77.8 kg 76.3 kg Lab Results: Lab Results-Last 24 Hours 10/10/22 10/10/22 10/11/22 Range/Units 15:55 20:40 07:20 POC Glucometer 337 H 272 H 155 H (74 to 106) mg/dL 10/11/22 Range/Units 11:22 POC Glucometer 459 H (74 to 106) mg/dL Multi-Disciplinary Progress Notes: Multi-Disciplinary Progress Notes 10/11/22 09:38 Case Management Note by Nadege Brand REVIEWED CHART FOR DC NEEDS- DO NOT ANTICIPATE ANY CHANGES IN NEEDS. PATIENT LIVES WITH HIS SISTER WHO MAKES SURE HE HAS 24 HR CARE EITHER THRU HER OR ASSISTING SERVICES LIKE [facility] AND [facility] AT HOME. CARTER REPORTS SHE HAS ALL THE MEDICAL EQUIPMENT PATIENT WOULD NEED AT HOME. HE ALREADY HAS HOME OXYGEN WITH PORTABILITY THAT WAS ORDERED FOR 2-3L 17/02. Initialized on 10/11/22 09:38 - END OF NOTE Assessment/Plan (1) COPD with exacerbation Current Visit: No Status: Acute Assessment & Plan: not improving- do CXR Code(s): J44.1 - CHRONIC OBSTRUCTIVE PULMONARY DISEASE W (ACUTE) EXACERBATION (2) Constipation Current Visit: No Status: Acute Assessment & Plan: dulcolax tab x 1,up and walk as tolerated -with Aid Code(s): K59.00 - CONSTIPATION, UNSPECIFIED (3) Leukocytosis, unspecified Current Visit: No Status: Acute Qualifiers: Assessment & Plan: repeat Procalcitonin,was mildly elevated on admission Code(s): D72.829 - ELEVATED WHITE BLOOD CELL COUNT, UNSPECIFIED
[2022-10-11] MEDS ORDERED: DULCOLAX 5 MG PO ONE (14:00)
--- NOTE | 2022-10-11 14:41 | XRAY ---
Indication: Wheezing. Comparison: October 09, 2022 AP/lateral chest again demonstrates mild bibasilar subsegmental atelectasis/scarring and right hemidiaphragm elevation. Remaining heart and upper lungs unremarkable. Bony thorax intact again with osteopenia and mild degenerative changes. Incompletely visualized lumbar fusion hardware not previously imaged. Impression: Continued nonacute chest with chronic features.
[2022-10-11 20:46] LABS: Hemoglobin 12.4 g/dL (12.5-18.0); Mean Cell Volume 91.7 fL (78-100); Mean Corpuscular Hemoglobin 27.7 pg (26-32); Mean Corpuscular Hgb Concent. 30.2 g/dL (32-36); Mean Platelet Volume 9.9 fL (7.5-11.0); Platelet Count 193 x10^3/uL (150-450); Red Blood Count 4.47 x10^6/uL (4.1-5.6); Red Cell Distribution Width 15.5 % (11.5-14.0); White Blood Count 17.3 x10^3/uL (4.0-10.5)
[2022-10-11 21:03] LABS: ANION GAP 13.8 MEQ/L (5-15); BLOOD UREA NITROGEN 12 mg/dL (9-20); CHLORIDE 100 mmol/L (98-107); Calcium 10.3 mg/dL (8.4-10.2); Carbon Dioxide 33 mmol/L (22-30); EST GLOMERULAR FILTRATION RATE > 60.0 ML/MIN; Glucose 406 mg/dL (74-106); Potassium 5.3 mmol/L (3.5-5.1); SODIUM 141 mmol/L (137-145)
[2022-10-11] MEDS: ZOCOR 20MG PO SCH (22:10)
[2022-10-11] MEDS: Cymbalta 30 MG Capsule PO SCH (22:10)
[2022-10-11] MEDS: Flomax 0.4 MG PO SCH (22:11)
[2022-10-11 23:37] LABS: BAND 1 % (0.0-2.0); Lymphocytes 36 % (24-44); Monocyte 3 % (0.0-12.0); Neutrophils 60 % (36.-66.); Platelet Estimate NORMAL (NORMAL); Total Cells Counted 100
[2022-10-11 23:38] LABS: ANISOCYTOSIS 1+
[2022-10-12] MEDS: solu-MEDROL 60 MG, Sterile H2O 10 ml 2 ML IV SCH ×8 (01:31→16:54)
[2022-10-12] MEDS: PROVENTIL 2.5 MG/3 ML NEB IH SCH ×6 (02:51→22:43)
[2022-10-12] MEDS: Advair Hfa 115/21 Common canister IH SCH ×2 (06:52→18:55)
[2022-10-12] MEDS: Spiriva 18 Mcg/Cap Inhaler IH SCH (06:52)
[2022-10-12] MEDS: Zithromax 500 MG/ 250 ML NaCl Premix 500 MG/250 ML IVPB IV SCH (08:59)
[2022-10-12] MEDS: ROCEPHIN 1 Gm-D5w 50 ml Bag** 1 G/50 ML IVPB IV SCH (08:59)
[2022-10-12] MEDS: ENOXAPARIN SODIUM SQ SCH (09:17)
[2022-10-12] MEDS: NEURONTIN PO SCH ×3 (09:18→21:57)
[2022-10-12] MEDS: Calcium 500MG W/Vit D Tablet PO SCH (09:19)
[2022-10-12] MEDS: CLARITIN 10 MG PO SCH (09:20)
[2022-10-12] MEDS: Ditropan XL 5 MG PO SCH (09:20)
[2022-10-12] MEDS: VITAMIN D PO SCH (09:21)
[2022-10-12] MEDS: Mucinex 600MG ER Tabs PO SCH ×2 (09:21→21:57)
[2022-10-12] MEDS: Pepcid 20 MG PO SCH ×2 (09:22→21:57)
[2022-10-12] MEDS: ECOTRIN 81 MG PO SCH (09:22)
[2022-10-12] MEDS: Docusate Sodium 100 MG PO SCH ×2 (09:22→21:57)
[2022-10-12] MEDS: THERAGRAN MULTIVITAMIN PO SCH (09:22)
[2022-10-12] MEDS: Protonix 40MG Tablet PO SCH ×2 (09:23→15:50)
[2022-10-12] MEDS: Lantus Insulin SQ SCH (09:23)
[2022-10-12] MEDS: MYSOLINE 50MG PO SCH ×3 (09:23→21:57)
[2022-10-12] MEDS: HUMALOG SQ PRN ×4 (09:24→21:57)
[2022-10-12] MEDS: NON-FORMULARY ITEM PO SCH ×3 (09:42→15:49)
[2022-10-12] MEDS: THEOPHYLLINE ER 24HR PO SCH ×2 (09:44→21:57)
[2022-10-12] MEDS: JARDIANCE PO SCH (09:44)
[2022-10-12] MEDS: Cymbalta 30 MG Capsule PO SCH ×2 (09:58→21:57)
--- NOTE | 2022-10-12 12:53 | PCM.NOTE ---
Date and Time: 10/12/22 1250 Subjective Assessment: Patient is feeling better today still harsh expiration and productive cough. Sputum for gram stain and cult collected yesterday. WBC not much improvement 18,000 now 17,000. Procalcitonin mildly elevated still. VSS. Calcium elevated -stopped supplement. Potassium elevated = 5.0 , not on potassium but is on honey thickened liquid that has 1mg /serving .Will discuss atb with pharmacy. Objective Exam General Appearance: no apparent distress Neurologic Exam: alert, oriented x 3, cooperative, normal mood/affect Skin Exam: warm, dry, pale Ears, Nose, Throat Exam: moist mucous membranes Respiratory Exam: rhonchi (harsh exp all lung fuentes), wheezing Cardiovascular Exam: regular rate/rhythm Gastrointestinal/Abdomen Exam: soft Extremity Exam: normal inspection OBJECTIVE DATA Vital Signs: Vital Signs - 24 hr Temp Pulse Resp BP Pulse Ox 10/12/22 11:44 97.8 F 103 H 16 136/64 97 10/12/22 11:05 94 L 10/12/22 10:49 106 H 20 96 10/12/22 07:24 97.9 F 85 16 169/74 92 L 10/12/22 06:56 87 22 93 L 10/12/22 04:00 98.0 F 82 20 157/83 96 10/12/22 02:53 84 20 94 L 10/11/22 23:53 97.8 F 108 H 20 163/78 96 10/11/22 23:05 92 H 22 94 L 10/11/22 19:52 98.2 F 114 H 21 131/63 96 10/11/22 16:00 97.8 F 105 H 16 141/69 95 10/11/22 14:43 102 H 18 93 L Pain Assessment - Last Documented Pain Intensity 0 Intake and Output: Intake & Output 10/10/22 10/11/22 10/12/22 10/13/22 11:59 11:59 11:59 11:59 Intake Total 5511 3981 2780 Output Total 4121 2075 4700 Balance 1386 1906 -1920 Weight 77.8 kg 76.3 kg 75.8 kg Lab Results: Lab Results-Last 24 Hours 10/11/22 10/11/22 10/11/22 Range/Units 16:05 20:40 20:40 WBC 17.3 H (4.0-10.5) x10^3/uL RBC 4.47 (4.1-5.6) x10^6/uL Hgb 12.4 L (12.5-18.0) g/dL Hct 41.0 L (42-50) % MCV 91.7 (78-100) fL MCH 27.7 (26-32) pg MCHC 30.2 L (32-36) g/dL RDW 15.5 H (11.5-14.0) % Plt Count 193 (150-450) x10^3/uL MPV 9.9 (7.5-11.0) fL Segmented Neutrophils 60 (36.-66.) % Band Neutrophils 1 (0.0-2.0) % Lymphocytes (Manual) 36 (24-44) % Monocytes (Manual) 3 (0.0-12.0) % Platelet Estimate NORMAL (NORMAL) RBC Morphology NORMAL Anisocytosis 1+ Sodium (137-145) mmol/L Potassium (3.5-5.1) mmol/L Chloride (98-107) mmol/L Carbon Dioxide (22-30) mmol/L Anion Gap (5-15) MEQ/L BUN (9-20) mg/dL Creatinine (0.66-1.25) mg/dL Estimated GFR ML/MIN Glucose (74-106) mg/dL POC Glucometer 435 H (74 to 106) mg/dL Calcium (8.4-10.2) mg/dL Procalcitonin 0.085 H (0.030-0.080) ng/mL 10/11/22 10/11/22 10/12/22 Range/Units 20:40 21:27 06:48 WBC (4.0-10.5) x10^3/uL RBC (4.1-5.6) x10^6/uL Hgb (12.5-18.0) g/dL Hct (42-50) % MCV (78-100) fL MCH (26-32) pg MCHC (32-36) g/dL RDW (11.5-14.0) % Plt Count (150-450) x10^3/uL MPV (7.5-11.0) fL Segmented Neutrophils (36.-66.) % Band Neutrophils (0.0-2.0) % Lymphocytes (Manual) (24-44) % Monocytes (Manual) (0.0-12.0) % Platelet Estimate (NORMAL) RBC Morphology Anisocytosis Sodium 141 (137-145) mmol/L Potassium 5.3 H D (3.5-5.1) mmol/L Chloride 100 (98-107) mmol/L Carbon Dioxide 33 H (22-30) mmol/L Anion Gap 13.8 (5-15) MEQ/L BUN 12 (9-20) mg/dL Creatinine 0.70 (0.66-1.25) mg/dL Estimated GFR > 60.0 ML/MIN Glucose 406 H (74-106) mg/dL POC Glucometer 339 H 227 H (74 to 106) mg/dL Calcium 10.3 H (8.4-10.2) mg/dL Procalcitonin (0.030-0.080) ng/mL 10/12/22 Range/Units 11:25 WBC (4.0-10.5) x10^3/uL RBC (4.1-5.6) x10^6/uL Hgb (12.5-18.0) g/dL Hct (42-50) % MCV (78-100) fL MCH (26-32) pg MCHC (32-36) g/dL RDW (11.5-14.0) % Plt Count (150-450) x10^3/uL MPV (7.5-11.0) fL Segmented Neutrophils (36.-66.) % Band Neutrophils (0.0-2.0) % Lymphocytes (Manual) (24-44) % Monocytes (Manual) (0.0-12.0) % Platelet Estimate (NORMAL) RBC Morphology Anisocytosis Sodium (137-145) mmol/L Potassium (3.5-5.1) mmol/L Chloride (98-107) mmol/L Carbon Dioxide (22-30) mmol/L Anion Gap (5-15) MEQ/L BUN (9-20) mg/dL Creatinine (0.66-1.25) mg/dL Estimated GFR ML/MIN Glucose (74-106) mg/dL POC Glucometer 476 H (74 to 106) mg/dL Calcium (8.4-10.2) mg/dL Procalcitonin (0.030-0.080) ng/mL Radiology Exams: Radiology Procedures Category Date Time Status CHEST 2 VIEWS (PA AND LAT) Routine Exams 10/11/22 13:25 Completed Assessment/Plan (1) COPD with exacerbation Current Visit: No Status: Acute Code(s): J44.1 - CHRONIC OBSTRUCTIVE PULMONARY DISEASE W (ACUTE) EXACERBATION (2) DM2 (diabetes mellitus, type 2) Current Visit: Yes Status: Chronic Qualifiers: Diabetes mellitus intermediate insulin use: with director long term care use (3) Hyperglycemia due to type 2 diabetes mellitus Current Visit: No Status: Acute Qualifiers: Diabetes mellitus intermediate insulin use: with intermediate use Qualified Code(s): E11.65 - Type 2 diabetes mellitus with hyperglycemia; Z79.4 - correction (current) use of insulin Assessment & Plan: adjust diet and sliding scale Code(s): E11.65 - TYPE 2 DIABETES MELLITUS WITH HYPERGLYCEMIA (4) Hyperkalemia Current Visit: Yes Status: Acute Assessment & Plan: not on potassium -retest - may be from honey thickener Code(s): E87.5 - HYPERKALEMIA
[2022-10-12 13:00] LABS: Absolute Neutrophil Ct (ANC) 9.27 x10^3/uL (1.4-6.9); BASOPHIL % 0.3 % (0.0-0.4); Basophil (Absolute #) 0.05 x10^3/uL (0-0.4); Eosinophil % 0.1 % (0.00-5.0); Eosinophil (Absolute #) 0.01 x10^3/uL (0-0.5); Hematocrit 40.3 % (42-50); Hemoglobin 12.4 g/dL (12.5-18.0); IMMATURE GRAN # 0.38 x10^3u/L (0.00-0.03); IMMATURE GRAN % 1.9 % (0.00-0.4); Lymphocytes % 46.4 % (24.0-44.0); Mean Cell Volume 91.4 fL (78-100); Mean Corpuscular Hemoglobin 28.1 pg (26-32); Mean Corpuscular Hgb Concent. 30.8 g/dL (32-36); Mean Platelet Volume 10.9 fL (7.5-11.0); Monocyte (Absolute #) 0.82 x10^3/uL (0.0-1.3); Monocytes % 4.2 % (0.0-12.0); NUCLEATED RBC # 0.02 x10^3u/L (0.00-0.01); NUCLEATED RBC % 0.1 % (0.00-0.1); Neutrophil % 47.1 % (36.0-66.0); Platelet Count 214 x10^3/uL (150-450); Red Blood Count 4.41 x10^6/uL (4.1-5.6); Red Cell Distribution Width 15.7 % (11.5-14.0); White Blood Count 19.6 x10^3/uL (4.0-10.5)
[2022-10-12 13:07] LABS: ANION GAP 13.5 MEQ/L (5-15); BLOOD UREA NITROGEN 14 mg/dL (9-20); CHLORIDE 101 mmol/L (98-107); Calcium 9.7 mg/dL (8.4-10.2); Carbon Dioxide 30 mmol/L (22-30); Creatinine 1 0.66 mg/dL (0.66-1.25); EST GLOMERULAR FILTRATION RATE > 60.0 ML/MIN; Glucose 230 mg/dL (74-106); Potassium 3.8 mmol/L (3.5-5.1); SODIUM 141 mmol/L (137-145)
[2022-10-12 14:23] LABS: ATYPICAL LYMPHS 5 %; Lymphocytes 43 % (24-44); Monocyte 8 % (0.0-12.0); Neutrophils 44 % (36.-66.); Platelet Estimate NORMAL (NORMAL); Total Cells Counted 100
[2022-10-12] MEDS: Flomax 0.4 MG PO SCH (21:57)
[2022-10-12] MEDS: ZOCOR 20MG PO SCH (21:57)
[2022-10-13] MEDS ORDERED: solu-MEDROL ONE ×2 (00:14→06:01)
[2022-10-13] MEDS: solu-MEDROL 60 MG, Sterile H2O 10 ml 2 ML IV SCH ×6 (00:15→11:45)
[2022-10-13] MEDS: PROVENTIL 2.5 MG/3 ML NEB IH SCH ×4 (03:17→14:36)
[2022-10-13] MEDS: Advair Hfa 115/21 Common canister IH SCH (06:34)
[2022-10-13] MEDS: Spiriva 18 Mcg/Cap Inhaler IH SCH (06:34)
[2022-10-13] MEDS: HUMALOG SQ PRN ×2 (07:57→11:44)
[2022-10-13] MEDS: Protonix 40MG Tablet PO SCH (07:58)
[2022-10-13] MEDS: Cymbalta 30 MG Capsule PO SCH (10:03)
[2022-10-13] MEDS: Mucinex 600MG ER Tabs PO SCH (10:03)
[2022-10-13] MEDS: ECOTRIN 81 MG PO SCH (10:03)
[2022-10-13] MEDS: CLARITIN 10 MG PO SCH (10:03)
[2022-10-13] MEDS: THERAGRAN MULTIVITAMIN PO SCH (10:03)
[2022-10-13] MEDS: MYSOLINE 50MG PO SCH ×2 (10:03→14:47)
[2022-10-13] MEDS: Pepcid 20 MG PO SCH (10:04)
[2022-10-13] MEDS: NEURONTIN PO SCH ×2 (10:04→14:47)
[2022-10-13] MEDS: Docusate Sodium 100 MG PO SCH (10:04)
[2022-10-13] MEDS: ROCEPHIN 1 Gm-D5w 50 ml Bag** 1 G/50 ML IVPB IV SCH (10:04)
[2022-10-13] MEDS: Ditropan XL 5 MG PO SCH (10:05)
[2022-10-13] MEDS: ENOXAPARIN SODIUM SQ SCH (10:05)
[2022-10-13] MEDS: Lantus Insulin SQ SCH (10:05)
[2022-10-13] MEDS: THEOPHYLLINE ER 24HR PO SCH (10:06)
[2022-10-13] MEDS: JARDIANCE PO SCH (10:06)
[2022-10-13] MEDS: VITAMIN D PO SCH (10:10)
[2022-10-13] MEDS: NON-FORMULARY ITEM PO SCH ×2 (10:31→11:44)
[2022-10-13] MEDS: Zithromax 500 MG/ 250 ML NaCl Premix 500 MG/250 ML IVPB IV SCH (11:05)
[2022-10-13 11:46] VITALS: BP 128/61
--- NOTE | 2022-10-13 12:37 | PCM.NOTE ---
Date and Time: 10/13/22 1237 OBJECTIVE DATA Vital Signs: Vital Signs - 24 hr Temp Pulse Resp BP Pulse Ox 10/13/22 11:46 97.5 F 100 H 20 128/61 93 L 10/13/22 10:22 87 22 96 10/13/22 07:39 97.5 F 80 20 136/73 93 L 10/13/22 06:36 80 20 93 L 10/13/22 04:00 97.8 F 73 16 172/84 92 L 10/13/22 03:17 89 16 91 L 10/13/22 00:00 97.8 F 84 20 150/65 94 L 10/12/22 22:43 79 18 95 10/12/22 20:00 97.9 F 92 H 18 141/67 93 L 10/12/22 19:20 83 20 92 L 10/12/22 16:00 97.9 F 86 16 122/58 93 L 10/12/22 14:43 84 20 93 L Pain Assessment - Last Documented Pain Intensity 3 Intake and Output: Intake & Output 10/11/22 10/12/22 10/13/22 10/14/22 11:59 11:59 11:59 11:59 Intake Total 3981 2780 360 Output Total 1155 4360 1250 Balance 1906 -1920 -890 Weight 76.3 kg 75.8 kg 77.9 kg Lab Results: Lab Results-Last 24 Hours 10/12/22 10/12/22 10/12/22 Range/Units 12:59 12:59 12:59 WBC 19.6 H (4.0-10.5) x10^3/uL RBC 4.41 (4.1-5.6) x10^6/uL Hgb 12.4 L (12.5-18.0) g/dL Hct 40.3 L (42-50) % MCV 91.4 (78-100) fL MCH 28.1 (26-32) pg MCHC 30.8 L (32-36) g/dL RDW 15.7 H (11.5-14.0) % Plt Count 214 (150-450) x10^3/uL MPV 10.9 (7.5-11.0) fL Gran % 47.1 (36.0-66.0) % Immature Gran % (Auto) 1.9 H (0.00-0.4) % Nucleat RBC Rel Count 0.1 (0.00-0.1) % Eos # (Auto) 0.01 (0-0.5) x10^3/uL Immature Gran # (Auto) 0.38 H (0.00-0.03) x10^3u/L Absolute Lymphs (auto) 9.10 H (1.0-4.6) x10^3/uL Absolute Monos (auto) 0.82 (0.0-1.3) x10^3/uL Absolute Nucleated RBC 0.02 H (0.00-0.01) x10^3u/L Lymphocytes % 46.4 H (24.0-44.0) % Monocytes % 4.2 (0.0-12.0) % Eosinophils % 0.1 (0.00-5.0) % Basophils % 0.3 (0.0-0.4) % Absolute Granulocytes 9.27 H (1.4-6.9) x10^3/uL Segmented Neutrophils 44 (36.-66.) % Lymphocytes (Manual) 43 (24-44) % Monocytes (Manual) 8 (0.0-12.0) % Basophils # 0.05 (0-0.4) x10^3/uL Atypical Lymphocytes 5 % Platelet Estimate NORMAL (NORMAL) RBC Morphology NORMAL Sodium 141 (137-145) mmol/L Potassium 3.8 D (3.5-5.1) mmol/L Chloride 101 (98-107) mmol/L Carbon Dioxide 30 (22-30) mmol/L Anion Gap 13.5 (5-15) MEQ/L BUN 14 (9-20) mg/dL Creatinine 0.66 (0.66-1.25) mg/dL Estimated GFR > 60.0 ML/MIN Glucose 230 H (74-106) mg/dL POC Glucometer (74 to 106) mg/dL Hemoglobin A1c (4.5-6.0) % Calcium 9.7 (8.4-10.2) mg/dL 25-OH Vitamin D Total (30-100) ng/mL Theophylline 13.7 (10-20) ug/mL 10/12/22 10/12/22 10/12/22 Range/Units 16:16 20:41 Unknown WBC (4.0-10.5) x10^3/uL RBC (4.1-5.6) x10^6/uL Hgb (12.5-18.0) g/dL Hct (42-50) % MCV (78-100) fL MCH (26-32) pg MCHC (32-36) g/dL RDW (11.5-14.0) % Plt Count (150-450) x10^3/uL MPV (7.5-11.0) fL Gran % (36.0-66.0) % Immature Gran % (Auto) (0.00-0.4) % Nucleat RBC Rel Count (0.00-0.1) % Eos # (Auto) (0-0.5) x10^3/uL Immature Gran # (Auto) (0.00-0.03) x10^3u/L Absolute Lymphs (auto) (1.0-4.6) x10^3/uL Absolute Monos (auto) (0.0-1.3) x10^3/uL Absolute Nucleated RBC (0.00-0.01) x10^3u/L Lymphocytes % (24.0-44.0) % Monocytes % (0.0-12.0) % Eosinophils % (0.00-5.0) % Basophils % (0.0-0.4) % Absolute Granulocytes (1.4-6.9) x10^3/uL Segmented Neutrophils (36.-66.) % Lymphocytes (Manual) (24-44) % Monocytes (Manual) (0.0-12.0) % Basophils # (0-0.4) x10^3/uL Atypical Lymphocytes % Platelet Estimate (NORMAL) RBC Morphology Sodium (137-145) mmol/L Potassium (3.5-5.1) mmol/L Chloride (98-107) mmol/L Carbon Dioxide (22-30) mmol/L Anion Gap (5-15) MEQ/L BUN (9-20) mg/dL Creatinine (0.66-1.25) mg/dL Estimated GFR ML/MIN Glucose (74-106) mg/dL POC Glucometer 304 H 238 H (74 to 106) mg/dL Hemoglobin A1c (4.5-6.0) % Calcium (8.4-10.2) mg/dL 25-OH Vitamin D Total 56.5 (30-100) ng/mL Theophylline (10-20) ug/mL 10/12/22 10/13/22 10/13/22 Range/Units Unknown 07:04 11:23 WBC (4.0-10.5) x10^3/uL RBC (4.1-5.6) x10^6/uL Hgb (12.5-18.0) g/dL Hct (42-50) % MCV (78-100) fL MCH (26-32) pg MCHC (32-36) g/dL RDW (11.5-14.0) % Plt Count (150-450) x10^3/uL MPV (7.5-11.0) fL Gran % (36.0-66.0) % Immature Gran % (Auto) (0.00-0.4) % Nucleat RBC Rel Count (0.00-0.1) % Eos # (Auto) (0-0.5) x10^3/uL Immature Gran # (Auto) (0.00-0.03) x10^3u/L Absolute Lymphs (auto) (1.0-4.6) x10^3/uL Absolute Monos (auto) (0.0-1.3) x10^3/uL Absolute Nucleated RBC (0.00-0.01) x10^3u/L Lymphocytes % (24.0-44.0) % Monocytes % (0.0-12.0) % Eosinophils % (0.00-5.0) % Basophils % (0.0-0.4) % Absolute Granulocytes (1.4-6.9) x10^3/uL Segmented Neutrophils (36.-66.) % Lymphocytes (Manual) (24-44) % Monocytes (Manual) (0.0-12.0) % Basophils # (0-0.4) x10^3/uL Atypical Lymphocytes % Platelet Estimate (NORMAL) RBC Morphology Sodium (137-145) mmol/L Potassium (3.5-5.1) mmol/L Chloride (98-107) mmol/L Carbon Dioxide (22-30) mmol/L Anion Gap (5-15) MEQ/L BUN (9-20) mg/dL Creatinine (0.66-1.25) mg/dL Estimated GFR ML/MIN Glucose (74-106) mg/dL POC Glucometer 237 H 387 H (74 to 106) mg/dL Hemoglobin A1c 6.39 H (4.5-6.0) % Calcium (8.4-10.2) mg/dL 25-OH Vitamin D Total (30-100) ng/mL Theophylline (10-20) ug/mL Radiology Exams: Radiology Procedures Category Date Time Status CHEST 2 VIEWS (PA AND LAT) Routine Exams 10/11/22 13:25 Completed Assessment/Plan (1) COPD with exacerbation Current Visit: No Status: Acute Code(s): J44.1 - CHRONIC OBSTRUCTIVE PULMONARY DISEASE W (ACUTE) EXACERBATION (2) DM2 (diabetes mellitus, type 2) Current Visit: Yes Status: Chronic Qualifiers: Diabetes mellitus residential insulin use: with manager long term care use (3) Hyperglycemia due to type 2 diabetes mellitus Current Visit: No Status: Acute Qualifiers: Diabetes mellitus residential insulin use: with residential use Qualified Code(s): E11.65 - Type 2 diabetes mellitus with hyperglycemia; Z79.4 - terminal manager (current) use of insulin Code(s): E11.65 - TYPE 2 DIABETES MELLITUS WITH HYPERGLYCEMIA (4) Hyperkalemia Current Visit: Yes Status: Acute Code(s): E87.5 - HYPERKALEMIA
[2022-10-13 13:19] LABS: Absolute Neutrophil Ct (ANC) 10.66 x10^3/uL (1.4-6.9); BASOPHIL % 0.3 % (0.0-0.4); Basophil (Absolute #) 0.06 x10^3/uL (0-0.4); Eosinophil (Absolute #) 0 x10^3/uL (0-0.5); Hematocrit 41.3 % (42-50); Hemoglobin 13.1 g/dL (12.5-18.0); IMMATURE GRAN # 0.55 x10^3u/L (0.00-0.03); IMMATURE GRAN % 2.6 % (0.00-0.4); Lymphocyte (Absolute #) 9.53 x10^3/uL (1.0-4.6); Lymphocytes % 44.8 % (24.0-44.0); Mean Cell Volume 89.6 fL (78-100); Mean Corpuscular Hemoglobin 28.4 pg (26-32); Mean Corpuscular Hgb Concent. 31.7 g/dL (32-36); Mean Platelet Volume 10.4 fL (7.5-11.0); Monocyte (Absolute #) 0.49 x10^3/uL (0.0-1.3); Monocytes % 2.3 % (0.0-12.0); Platelet Count 222 x10^3/uL (150-450); Red Blood Count 4.61 x10^6/uL (4.1-5.6); Red Cell Distribution Width 15.4 % (11.5-14.0); White Blood Count 21.3 x10^3/uL (4.0-10.5)
[2022-10-13 13:33] LABS: ALBUMIN 3.8 g/dL (3.5-5.0); ALKALINE PHOSPHATASE 62 U/L (38-126); ANION GAP 11.2 MEQ/L (5-15); BLOOD UREA NITROGEN 16 mg/dL (9-20); CHLORIDE 99 mmol/L (98-107); Calcium 9.6 mg/dL (8.4-10.2); Carbon Dioxide 33 mmol/L (22-30); Creatinine 1 0.68 mg/dL (0.66-1.25); EST GLOMERULAR FILTRATION RATE > 60.0 ML/MIN; Glucose 227 mg/dL (74-106); SGOT/AST 22 U/L (17-59); SGPT/ALT 30 U/L (0-50); SODIUM 139 mmol/L (137-145); Total Protein 6.5 g/dL (6.3-8.2)
[2022-10-13 14:30] LABS: ATYPICAL LYMPHS 4 %; Lymphocytes 52 % (24-44); Monocyte 3 % (0.0-12.0); Neutrophils 41 % (36.-66.); Total Cells Counted 100
[2022-10-13 14:31] LABS: Platelet Estimate NORMAL (NORMAL)
[2022-10-13 14:40] VITALS: PULSE 88; O2SAT 95
--- NOTE | 2022-10-13 16:07 | PCM.DS ---
Discharge Summary Date of Admission: 10/10/22 15:48 Date of Discharge: 10/13/22 Admitting Physician: MAXIMINO MATTHEWS Primary Care Provider: FELISHA NAVAS Allergies Allergies adhesive tape Allergy (Verified 10/09/22 00:15) bee venom protein (honey bee) Allergy (Verified 10/09/22 00:15) poison jarrett extract Allergy (Verified 10/09/22 00:15) Hospital Summary - Vitals & Intake/Output Vital Signs: Vital Signs Temperature 97.5 F 10/13/22 11:46 Pulse Rate 88 10/13/22 14:36 Respiratory Rate 20 10/13/22 14:36 Blood Pressure 128/61 10/13/22 11:46 O2 Sat by Pulse Oximetry 95 10/13/22 14:36 Intake & Output: Intake & Output 10/11/22 10/12/22 10/13/22 10/14/22 11:59 11:59 11:59 11:59 Intake Total 3981 2780 360 Output Total 9191 1980 1250 Balance 1906 -1920 -890 Weight 76.3 kg 75.8 kg 77.9 kg - Lab Result Diagrams: 10/13/22 12:38 10/13/22 12:41 Lab Results-Last 24 Hrs: Lab Results-Last 24 Hours 10/12/22 10/12/22 10/13/22 Range/Units 16:16 20:41 07:04 WBC (4.0-10.5) x10^3/uL RBC (4.1-5.6) x10^6/uL Hgb (12.5-18.0) g/dL Hct (42-50) % MCV (78-100) fL MCH (26-32) pg MCHC (32-36) g/dL RDW (11.5-14.0) % Plt Count (150-450) x10^3/uL MPV (7.5-11.0) fL Gran % (36.0-66.0) % Immature Gran % (Auto) (0.00-0.4) % Nucleat RBC Rel Count (0.00-0.1) % Eos # (Auto) (0-0.5) x10^3/uL Immature Gran # (Auto) (0.00-0.03) x10^3u/L Absolute Lymphs (auto) (1.0-4.6) x10^3/uL Absolute Monos (auto) (0.0-1.3) x10^3/uL Absolute Nucleated RBC (0.00-0.01) x10^3u/L Lymphocytes % (24.0-44.0) % Monocytes % (0.0-12.0) % Eosinophils % (0.00-5.0) % Basophils % (0.0-0.4) % Absolute Granulocytes (1.4-6.9) x10^3/uL Segmented Neutrophils (36.-66.) % Lymphocytes (Manual) (24-44) % Monocytes (Manual) (0.0-12.0) % Basophils # (0-0.4) x10^3/uL Atypical Lymphocytes % Platelet Estimate (NORMAL) RBC Morphology Sodium (137-145) mmol/L Potassium (3.5-5.1) mmol/L Chloride (98-107) mmol/L Carbon Dioxide (22-30) mmol/L Anion Gap (5-15) MEQ/L BUN (9-20) mg/dL Creatinine (0.66-1.25) mg/dL Estimated GFR ML/MIN Glucose (74-106) mg/dL POC Glucometer 304 H 238 H 237 H (74 to 106) mg/dL Calcium (8.4-10.2) mg/dL Total Bilirubin (0.2-1.3) mg/dL AST (17-59) U/L ALT (0-50) U/L Alkaline Phosphatase (38-126) U/L Serum Total Protein (6.3-8.2) g/dL Albumin (3.5-5.0) g/dL Procalcitonin (0.030-0.080) ng/mL 10/13/22 10/13/22 10/13/22 Range/Units 11:23 12:38 12:41 WBC 21.3 H (4.0-10.5) x10^3/uL RBC 4.61 (4.1-5.6) x10^6/uL Hgb 13.1 (12.5-18.0) g/dL Hct 41.3 L (42-50) % MCV 89.6 (78-100) fL MCH 28.4 (26-32) pg MCHC 31.7 L (32-36) g/dL RDW 15.4 H (11.5-14.0) % Plt Count 222 (150-450) x10^3/uL MPV 10.4 (7.5-11.0) fL Gran % 50.0 (36.0-66.0) % Immature Gran % (Auto) 2.6 H (0.00-0.4) % Nucleat RBC Rel Count 0.0 (0.00-0.1) % Eos # (Auto) 0 (0-0.5) x10^3/uL Immature Gran # (Auto) 0.55 H (0.00-0.03) x10^3u/L Absolute Lymphs (auto) 9.53 H (1.0-4.6) x10^3/uL Absolute Monos (auto) 0.49 (0.0-1.3) x10^3/uL Absolute Nucleated RBC 0.00 (0.00-0.01) x10^3u/L Lymphocytes % 44.8 H (24.0-44.0) % Monocytes % 2.3 (0.0-12.0) % Eosinophils % 0.0 (0.00-5.0) % Basophils % 0.3 (0.0-0.4) % Absolute Granulocytes 10.66 H (1.4-6.9) x10^3/uL Segmented Neutrophils 41 (36.-66.) % Lymphocytes (Manual) 52 H (24-44) % Monocytes (Manual) 3 (0.0-12.0) % Basophils # 0.06 (0-0.4) x10^3/uL Atypical Lymphocytes 4 % Platelet Estimate NORMAL (NORMAL) RBC Morphology NORMAL Sodium 139 (137-145) mmol/L Potassium 4.0 (3.5-5.1) mmol/L Chloride 99 (98-107) mmol/L Carbon Dioxide 33 H (22-30) mmol/L Anion Gap 11.2 (5-15) MEQ/L BUN 16 (9-20) mg/dL Creatinine 0.68 (0.66-1.25) mg/dL Estimated GFR > 60.0 ML/MIN Glucose 227 H (74-106) mg/dL POC Glucometer 387 H (74 to 106) mg/dL Calcium 9.6 (8.4-10.2) mg/dL Total Bilirubin 0.30 (0.2-1.3) mg/dL AST 22 (17-59) U/L ALT 30 (0-50) U/L Alkaline Phosphatase 62 (38-126) U/L Serum Total Protein 6.5 (6.3-8.2) g/dL Albumin 3.8 (3.5-5.0) g/dL Procalcitonin (0.030-0.080) ng/mL 10/13/22 Range/Units 13:12 WBC (4.0-10.5) x10^3/uL RBC (4.1-5.6) x10^6/uL Hgb (12.5-18.0) g/dL Hct (42-50) % MCV (78-100) fL MCH (26-32) pg MCHC (32-36) g/dL RDW (11.5-14.0) % Plt Count (150-450) x10^3/uL MPV (7.5-11.0) fL Gran % (36.0-66.0) % Immature Gran % (Auto) (0.00-0.4) % Nucleat RBC Rel Count (0.00-0.1) % Eos # (Auto) (0-0.5) x10^3/uL Immature Gran # (Auto) (0.00-0.03) x10^3u/L Absolute Lymphs (auto) (1.0-4.6) x10^3/uL Absolute Monos (auto) (0.0-1.3) x10^3/uL Absolute Nucleated RBC (0.00-0.01) x10^3u/L Lymphocytes % (24.0-44.0) % Monocytes % (0.0-12.0) % Eosinophils % (0.00-5.0) % Basophils % (0.0-0.4) % Absolute Granulocytes (1.4-6.9) x10^3/uL Segmented Neutrophils (36.-66.) % Lymphocytes (Manual) (24-44) % Monocytes (Manual) (0.0-12.0) % Basophils # (0-0.4) x10^3/uL Atypical Lymphocytes % Platelet Estimate (NORMAL) RBC Morphology Sodium (137-145) mmol/L Potassium (3.5-5.1) mmol/L Chloride (98-107) mmol/L Carbon Dioxide (22-30) mmol/L Anion Gap (5-15) MEQ/L BUN (9-20) mg/dL Creatinine (0.66-1.25) mg/dL Estimated GFR ML/MIN Glucose (74-106) mg/dL POC Glucometer (74 to 106) mg/dL Calcium (8.4-10.2) mg/dL Total Bilirubin (0.2-1.3) mg/dL AST (17-59) U/L ALT (0-50) U/L Alkaline Phosphatase (38-126) U/L Serum Total Protein (6.3-8.2) g/dL Albumin (3.5-5.0) g/dL Procalcitonin 0.070 (0.030-0.080) ng/mL Micro Results-Entire Visit: Microbiology 10/09/22 00:42 Blood Culture Gram Stain - Final Blood Not Reportable Blood Culture - Final NO GROWTH 10/09/22 00:30 Blood Culture Gram Stain - Final Blood Not Reportable Blood Culture - Final NO GROWTH Accuchecks Date 10/13/22 Date 10/13/22 Date 10/12/22 Date 10/12/22 Time 07:18 Time 21:00 Time 16:43 - Procedures and Test Procedures and Tests throughout Hospitalization: Therapy Orders & Screens 10/09/22 03:38 Oxygen Nasal Cannula 2 lpm Comment: Respiratory Therapy Consult ROUTINE Comment: Reason For Exam: 10/09/22 05:18 Respiratory Therapy Assessment DAILY Comment: Diagnosis: PNA Final Diagnosis/Problem List - Final Discharge Diagnosis/Problem (1) COPD with exacerbation Current Visit: No Status: Acute Code(s): J44.1 - CHRONIC OBSTRUCTIVE PULMONARY DISEASE W (ACUTE) EXACERBATION (2) DM2 (diabetes mellitus, type 2) Current Visit: Yes Status: Chronic (3) Hyperglycemia due to type 2 diabetes mellitus Current Visit: No Status: Acute Code(s): E11.65 - TYPE 2 DIABETES MELLITUS WITH HYPERGLYCEMIA (4) Hyperkalemia Current Visit: Yes Status: Resolved Code(s): E87.5 - HYPERKALEMIA - Discharge Disposition: Home, Self-Care Condition: Stable Prescriptions: New Fluconazole [Diflucan] 150 mg PO DAILY 1 Days #1 tablet Methylprednisolone Packet [Medrol Dosepack] 1 packet PO DAILY 5 Days #1 packet Continue Omeprazole 40 mg PO BIDAC Fluticasone/Salmeterol [Advair 250-50 Diskus] 1 puff IH BID Tiotropium [place] Inhaler [Spiriva 18 Mcg/Cap Inhaler] 18 mcg IH DAILY Primidone 50 MG [Mysoline 50Mg] 50 mg PO TID Duloxetine HCl [Cymbalta] 60 mg PO BID Divalproex Sodium [Depakote] 1,000 mg PO BID Multivitamin [Multivitamins] 1 each PO DAILY Loratadine 10 mg PO DAILY Atorvastatin Calcium 40 mg PO HS Maltodextrin/Xanthan Gum [Thicken Up Clear Powder Packet] 1 packet PO ACHS EPINEPHrine [Epipen 2-Jeffery] 0.3 mg IM UD PRN PRN Reason: allergic reaction Empagliflozin [Jardiance] 10 mg PO DAILY Aspirin 81 mg PO DAILY Gabapentin [Neurontin ] 300 mg PO TID capsule Acetaminophen 500 mg [Tylenol Extra Strength 500 mg] 500 mg PO TID PRN PRN Reason: Pain Docusate Sodium 100 mg [Docusate Sodium 100 MG] 100 mg PO BID Acarbose [Precose] 50 mg PO TID Cholecalciferol (Vitamin D3) [Vitamin D] 1,000 unit PO DAILY Theophylline Anhydrous [Theophylline ER 24Hr] 400 mg PO BID Calcium Carbonate/Vitamin D3 [Calcium 600 mg-D3 10 Mcg Sfgl] 1 tab PO DAILY Tamsulosin HCl 0.4 mg [Flomax 0.4 MG] 0.4 mg PO HS Albuterol Sulfate 0.63 mg IH TID Albuterol Sulfate [Proair Digihaler] 2 puff IH QID Dextromethorphan HBr [Tussin Cough] 15 mg PO BID Insulin Glargine,Hum.rec.anlog [Lantus] 40 unit SQ QAM Levomefolate/Algal Oil [l-Methylfolate Forte 7.5 mg Cp] 7.5 mg PO BID Oxybutynin Chloride [Oxybutynin Chloride ER] 10 mg PO DAILY Polyethylene Glycol 3350 17 gm [Miralax Powder 17GM PACKET] 17 gm PO DAILY PRN PRN PRN Reason: Constipation Dulaglutide [Trulicity] 3 mg SQ WEEKLY Instructions: Chronic Obstructive Pulmonary Disease (COPD) (DC), Pneumonia, Ad ult (DC) Additional Instructions: Follow up appointment in 1 week. Call for any questions or concerns. Follow up with: FELISHA NAVAS MD [Primary Care Provider] - Forms: Discharge Instructions
== END 2022-10-13 16:28 | disposition home or self-care (01) | DRG 192 ==
LOC: ED 23:54 → MED SURG 10-09 03:30 → OBSVTOIN 10-10 15:48
PROVIDERS: ADMIT Family Medicine; ATTEND Family Medicine
DX: J44.1 Chronic obstructive pulmonary disease with (acute) exacerbation (principal); E11.65 Type 2 diabetes mellitus with hyperglycemia; E87.5 Hyperkalemia; K59.00 Constipation, unspecified; D72.829 Elevated white blood cell count, unspecified; Z79.899 Other long term (current) drug therapy; Z20.828 Contact with and (suspected) exposure to other viral communicable diseases; Z87.820 Personal history of traumatic brain injury
CPT/HCPCS: 0241U; 36000; 36415; 71045; 71046; 80048; 80053; 80198; 81001; 82306; 82805; 82947; 83036; 83605; 83735; 84145; 84484; 85025; 85027; 85379; 87040; 93005; 93041; 94640; 94760; 99284; G0378; J0456; J0696; J1650; J1817; J2930; J7609; A9270-GY; J3370

== ENCOUNTER 2022-12-25 11:41 | Emergency (ER) | payer MEDICARE ==
[2022-12-25 12:29] LABS: Absolute Neutrophil Ct (ANC) 6.17 x10^3/uL (1.4-6.9); BASOPHIL % 0.2 % (0.0-0.4); Basophil (Absolute #) 0.03 x10^3/uL (0-0.4); Eosinophil % 1.5 % (0.00-5.0); Eosinophil (Absolute #) 0.22 x10^3/uL (0-0.5); Hematocrit 32.9 % (42-50); Hemoglobin 10.4 g/dL (12.5-18.0); IMMATURE GRAN % 0.7 % (0.00-0.4); Lymphocyte (Absolute #) 7.49 x10^3/uL (1.0-4.6); Lymphocytes % 51.1 % (24.0-44.0); Mean Cell Volume 91.9 fL (78-100); Mean Corpuscular Hemoglobin 29.1 pg (26-32); Mean Corpuscular Hgb Concent. 31.6 g/dL (32-36); Mean Platelet Volume 8.9 fL (7.5-11.0); Monocyte (Absolute #) 0.66 x10^3/uL (0.0-1.3); Monocytes % 4.5 % (0.0-12.0); NUCLEATED RBC # 0.02 x10^3u/L (0.00-0.01); NUCLEATED RBC % 0.1 % (0.00-0.1); Platelet Count 325 x10^3/uL (150-450); Red Blood Count 3.58 x10^6/uL (4.1-5.6); White Blood Count 14.7 x10^3/uL (4.0-10.5)
[2022-12-25 12:46] LABS: ALBUMIN 3.7 g/dL (3.5-5.0); ALKALINE PHOSPHATASE 65 U/L (38-126); ANION GAP 13.4 MEQ/L (5-15); BLOOD UREA NITROGEN 16 mg/dL (9-20); CHLORIDE 100 mmol/L (98-107); Calcium 9.1 mg/dL (8.4-10.2); Carbon Dioxide 32 mmol/L (22-30); Creatinine 1 0.72 mg/dL (0.66-1.25); EST GLOMERULAR FILTRATION RATE > 60.0 ML/MIN; Glucose 135 mg/dL (74-106); LIPASE 37 U/L (23-300); SGOT/AST 47 U/L (17-59); SGPT/ALT 42 U/L (0-50); SODIUM 141 mmol/L (137-145); Total Protein 7.1 g/dL (6.3-8.2)
[2022-12-25 13:00] LABS: Slide Review 1 YES
[2022-12-25 13:39] VITALS: PULSE 86
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
--- NOTE | 2022-12-25 13:49 | XRAY ---
Indication: Wound infection. Abscess. Status post abdominal surgery December 14, 2022. Multiple contiguous axial images obtained through the abdomen and pelvis using 80 cc Isovue 370 contrast. Comparison: January 31, 2022 Lung bases again demonstrates mild subsegmental atelectasis/scarring. Heart not enlarged. Abdominal wall demonstrates new midline surgical clips. No underlying focal solid/cystic mass or abnormal fluid collection. Stomach is now distended with food/fluid. Noncontrasted stomach and bowel loops appear nonobstructed. Again moderate diffuse scattered colonic fecal debris throughout including rectum more than before. New tiny perihepatic free fluid possibly postoperative. No walled off fluid collection or free air. Stable 1.1 cm left lower renal exophytic enhancing mass. Again incidental 14.8 cm splenomegaly. Remaining liver, gallbladder, pancreas, spleen, adrenal glands, kidneys, ureters, and bladder are unremarkable. There remains mild scattered aortoiliac ossifications. AAA or pathologic retroperitoneal lymphadenopathy. Osseous structures again demonstrates mild degenerative changes throughout the spine, L2-S1 fusion surgery with intact bilateral posterior fusion hardware, grade 1 anterolisthesis L4 on L5, and mild levoscoliosis. Stable small fatty right inguinal hernia. Impression: 1. New midline ventral abdominal wall cutaneous vlad. No underlying focal solid/cystic mass or abnormal fluid collection. 2. New tiny perihepatic fluid possibly postoperative. No walled off fluid collection/abscess. 3. Worsening moderate diffuse fecal stasis with rectal impaction. 4. Stable 1.1 cm left lower renal exophytic enhancing mass. Again rule out malignancy. 5. Again chronic findings including splenomegaly, chronic bony findings, arteriosclerotic disease, and fatty right inguinal hernia.
[2022-12-25 14:31] VITALS: BP 114/78
[2022-12-25 14:39] VITALS: O2SAT 93
== END 2022-12-25 14:30 | disposition home or self-care (01) ==
LOC: ED 11:41
DX: L03.311 Cellulitis of abdominal wall (principal); S31.119D Laceration without foreign body of abdominal wall, unspecified quadrant without penetration into peritoneal cavity, subsequent encounter; W45.8XXD Other foreign body or object entering through skin, subsequent encounter; E78.5 Hyperlipidemia, unspecified; E11.42 Type 2 diabetes mellitus with diabetic polyneuropathy; Z79.84 Long term (current) use of oral hypoglycemic drugs; Z79.4 Long term (current) use of insulin; Z79.85 Long-term (current) use of injectable non-insulin antidiabetic drugs; Z79.899 Other long term (current) drug therapy
CPT/HCPCS: 36000; 36415; 74177; 80053; 83690; 85025; 99283

== ENCOUNTER 2023-03-31 19:52 | Emergency (ER) | payer MEDICARE ==
[2023-03-31 20:02] VITALS: TEMP 100.1
[2023-03-31] MEDS ORDERED: TYLENOL EXTRA STRENGTH 500 MG ONE (20:03)
[2023-03-31] MEDS ORDERED: TYLENOL EXTRA STRENGTH 500 MG PO STA (20:03)
[2023-03-31 20:50] LABS: Hemoglobin 11.8 g/dL (12.5-18.0); Mean Cell Volume 87.1 fL (78-100); Mean Corpuscular Hemoglobin 26.3 pg (26-32); Mean Corpuscular Hgb Concent. 30.3 g/dL (32-36); Platelet Count 191 x10^3/uL (150-450); Red Blood Count 4.48 x10^6/uL (4.1-5.6); Red Cell Distribution Width 14.5 % (11.5-14.0); White Blood Count 15.3 x10^3/uL (4.0-10.5)
[2023-03-31 21:05] LABS: ALBUMIN 3.7 g/dL (3.5-5.0); ALKALINE PHOSPHATASE 51 U/L (38-126); ANION GAP 11.8 MEQ/L (5-15); BLOOD UREA NITROGEN 15 mg/dL (9-20); CHLORIDE 103 mmol/L (98-107); Calcium 8.9 mg/dL (8.4-10.2); Carbon Dioxide 30 mmol/L (22-30); Creatinine 1 0.86 mg/dL (0.66-1.25); EST GLOMERULAR FILTRATION RATE > 60.0 ML/MIN; Glucose 149 mg/dL (74-106); Potassium 4.2 mmol/L (3.5-5.1); SGOT/AST 31 U/L (17-59); SGPT/ALT 22 U/L (0-50); SODIUM 140 mmol/L (137-145); Total Protein 6.3 g/dL (6.3-8.2)
[2023-03-31 21:06] LABS: INR 1.01 (0.8-3.0)
[2023-03-31 21:26] LABS: INFLUENZA A NEGATIVE (NEGATIVE); INFLUENZA B NEGATIVE (NEGATIVE); RESPIRATORY SYNCTIAL VIRUS NEGATIVE (NEGATIVE); SARS-CoV-2 Xpert Express NEGATIVE (NEGATIVE)
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
[2023-03-31 22:12] LABS: BAND 1 % (0.0-2.0); Eosinophil 1 % (0.00-3.0); Lymphocytes 64 % (24-44); Microcytosis 1+; Monocyte 1 % (0.0-12.0); Neutrophils 33 % (36.-66.); Platelet Estimate NORMAL (NORMAL); Total Cells Counted 100
[2023-03-31 23:21] LABS: Appearance Clear (Clear); Bacteria None Seen /HPF (None Seen); Bilirubin Negative (Negative); Blood Negative (Negative); Epithelial Cells None Seen /HPF (None Seen); Glucose, Urine >=1000 mg/dL (Negative); Hyaline Casts NONE SEEN /LPF (0-2); Ketones Negative (Negative); Leukocyte Esterase Negative (Negative); Nitrite Negative (Negative); Ph 7.5 (4.6-8.0); Protein,Urine Dip Negative (Negative); RBC 0-2 /HPF (0-5); Specific Gravity >=1.030 (1.005-1.030)
[2023-03-31 23:29] LABS: ADD URINE CULTURE? NO (NO)
--- NOTE | 2023-04-01 00:07 | XRAY ---
CLINICAL HISTORY:cough/dyspnea COMPARISON:None TECHNIQUE:Contiguous axial CT images of the chest were acquired without administration of intravenous contrast. Coronal and sagittal reconstructions were obtained. FINDINGS: A geographic area ill-defined area of ground glass opacity with air bronchograms obscuring traversing lung vasculature is seen in the medial and lateral segments of the right middle lobe silhouetting the right cardiac border, consistent with consolidation. Another similar smaller area is seen in the lateral segment of the right middle lobe. There are a few patchy areas of hazy opacity with preservation of the vascular markings and linear fibrotic bands are noted in bilateral lower lobes and right middle lobe of lung fuentes, consistent with acute on chronic/ subacute infective/inflammatory process. Few air blebs are seen normal right upper lobe. Few prominent lymph nodes are seen in the mediastinum the largest one is measuring about 0.9 cm in the short axis noted in the pretracheal region. A few enlarged axillary lymph nodes and this preserved fatty julia are identified bilaterally, the largest on the right side measures 1.1 cm in the short axis while the left side measures 1.0 cm in the short axis. Calcification is noted in the coronary vessels. Heart size is normal, and there is no pericardial effusion. There is no definite mass lesion in the chest wall. Degenerative changes are seen in the visualized spine no other bony abnormality is detected. The rest of scanned upper abdomen is unremarkable. IMPRESSION: An ill-defined geographic area of right middle lobe opacity with surrounding groundglass haze and reticulations. Findings may reflect dense consolidation. Possibility of neoplasm cannot be excluded on this unenhanced study. Recommend follow-up. Few patchy areas of hazy opacity with preservation of the vascular markings and linear fibrotic bands in bilateral lower lobes and right middle lobe of lung fuentes, consistent with acute on chronic/ subacute infective/inflammatory process. Clinical correlation is recommended. Mediastinal and bilateral axillary lymphadenopathy. Clinical correlation and lab work is recommended further. Electronically Signed by: Carlos Enrique Heller MD. (03/31/2023 23:05:24 PROTOCOL MANAGER)
[2023-04-01] MEDS ORDERED: ROCEPHIN 1 Gm-D5w 50 ml Bag** 1 G/50 ML IVPB IV STA (00:13)
[2023-04-01] MEDS ORDERED: ROCEPHIN 1 Gm-D5w 50 ml Bag** 1 G/50 ML IVPB IV ONE (00:15)
[2023-04-01 01:06] VITALS: BP 123/56; PULSE 82; RESP 22
[2023-04-01 01:42] VITALS: O2SAT 97
--- NOTE | 2023-04-01 08:37 | XRAY ---
Indication: Fever and cough. Comparison: October 11, 2022 Portable chest better inflated again with mild left base subsegmental atelectasis/scarring. Remaining heart and lungs unremarkable. Bony thorax intact again with osteopenia and mild degenerative changes. No new/acute findings.
== END 2023-04-01 01:10 | disposition home or self-care (01) ==
LOC: ED 19:52
DX: J18.9 Pneumonia, unspecified organism (principal); R50.9 Fever, unspecified; Z87.820 Personal history of traumatic brain injury; E78.5 Hyperlipidemia, unspecified; E11.42 Type 2 diabetes mellitus with diabetic polyneuropathy; Z79.84 Long term (current) use of oral hypoglycemic drugs; Z79.4 Long term (current) use of insulin; Z79.85 Long-term (current) use of injectable non-insulin antidiabetic drugs; Z79.899 Other long term (current) drug therapy
CPT/HCPCS: 0241U; 36415; 71045; 71250; 80053; 81001; 83605; 84484; 85025; 85610; 85730; 99284; J0696; A9270-GY

== ENCOUNTER 2023-06-02 12:15 | Inpatient (IN) | payer MEDICARE ==
[2023-06-02] MEDS: Sodium Chloride 0.9% 1000 ML 1,000 ML IV SCH ×2 (12:33→23:22)
--- NOTE | 2023-06-02 12:46 | XRAY ---
Indication: Cough. Comparison: March 31, 2023 Portable chest demonstrates new right mid to lower lung patchy airspace disease without consolidation/large effusion. Stable left base subsegmental atelectasis/scarring. Heart not enlarged. Bony thorax intact.
[2023-06-02 13:06] LABS: Hematocrit 44.9 % (42-50); Mean Cell Volume 89.8 fL (78-100); Mean Corpuscular Hgb Concent. 31.2 g/dL (32-36); Platelet Count 194 x10^3/uL (150-450); Red Cell Distribution Width 16.5 % (11.5-14.0); White Blood Count 13.5 x10^3/uL (4.0-10.5)
[2023-06-02 13:20] LABS: PROTIME 10.9 SECONDS (9.4-12.5)
[2023-06-02 13:21] LABS: ALBUMIN 4.7 g/dL (3.5-5.0); ANION GAP 18.3 MEQ/L (5-15); BILIRUBIN,TOTAL 0.5 mg/dL (0.2-1.3); Calcium 10.4 mg/dL (8.4-10.2); Creatinine 1 0.87 mg/dL (0.66-1.25); EST GLOMERULAR FILTRATION RATE 95.2 ML/MIN; Potassium 3.9 mmol/L (3.5-5.1); Total Protein 8.2 g/dL (6.3-8.2)
[2023-06-02 13:43] LABS: INFLUENZA A NEGATIVE (NEGATIVE); INFLUENZA B NEGATIVE (NEGATIVE); RESPIRATORY SYNCTIAL VIRUS NEGATIVE (NEGATIVE); SARS-CoV-2 Xpert Express NEGATIVE (NEGATIVE)
[2023-06-02 14:12] LABS: ATYPICAL LYMPHS 7 %; Lymphocytes 32 % (24-44); Monocyte 1 % (0.0-12.0); Neutrophils 60 % (36.-66.); Total Cells Counted 100
[2023-06-02 14:13] LABS: Platelet Estimate NORMAL (NORMAL)
[2023-06-02 14:44] LABS: Appearance Clear (Clear); Bacteria None Seen /HPF (None Seen); Bilirubin Negative (Negative); Blood Negative (Negative); Epithelial Cells None Seen /HPF (None Seen); Glucose, Urine >=1000 mg/dL (Negative); Hyaline Casts NONE SEEN /LPF (0-2); Ketones 15 (Negative); Leukocyte Esterase Negative (Negative); Nitrite Negative (Negative); Protein,Urine Dip Negative (Negative); RBC 0-2 /HPF (0-5); Specific Gravity >=1.030 (1.005-1.030); Urobilinogen 0.2 mg/dL (0.2)
[2023-06-02 14:45] LABS: ADD URINE CULTURE? NO (NO)
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
[2023-06-02] MEDS ORDERED: DUONEB 0.5-3 MG/3 ml Neb IH PRN (15:42)
[2023-06-02] MEDS ORDERED: Spiriva 18 Mcg/Cap Inhaler IH ONE (15:46)
[2023-06-02] MEDS: DUONEB 0.5-3 MG/3 ml Neb IH SCH ×2 (16:01→18:42)
[2023-06-02] MEDS ORDERED: EPINEPHRINE 0.3 MG/0.3 ML IM PRN (16:28)
[2023-06-02] MEDS ORDERED: Miralax Powder 17GM PACKET PO PRN (16:28)
[2023-06-02] MEDS ORDERED: NON-FORMULARY ITEM (Omeprazole [Omeprazole] 40 MG Capsule.Dr) PO SCH (16:30)
[2023-06-02] MEDS ORDERED: [UNRECOGNIZED DRUG - OTHER] PO SCH (16:30)
[2023-06-02] MEDS ORDERED: NON-FORMULARY ITEM (Dulaglutide [Trulicity] 3 MG/0.5 ML Pen.Injctr) SQ SCH (16:30)
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
[2023-06-02] MEDS ORDERED: ACETYLCYSTEINE 200 MG/ML IH SCH (17:00)
[2023-06-02] MEDS ORDERED: [UNRECOGNIZED DRUG - OTHER] IH SCH (17:00)
[2023-06-02] MEDS ORDERED: Mucomyst 200 MG/ML IH SCH ×2 (17:00→19:00)
[2023-06-02] MEDS: Zithromax 500 MG/ 250 ML NaCl Premix 500 MG/250 ML IVPB IV SCH (17:18)
[2023-06-02] MEDS ORDERED: MEDICATION INTERVENTION MC SCH ×3 (17:30)
[2023-06-02] MEDS: ZOCOR 20MG PO SCH (21:30)
[2023-06-02] MEDS: THEOPHYLLINE ER 24HR PO SCH (21:40)
[2023-06-02] MEDS: TYLENOL EXTRA STRENGTH 500 MG PO SCH (21:41)
[2023-06-02] MEDS: NEURONTIN PO SCH (21:42)
[2023-06-02] MEDS: MYSOLINE 50MG PO SCH (21:42)
[2023-06-02] MEDS: Cymbalta 30 MG Capsule PO SCH (21:42)
[2023-06-02] MEDS: Docusate Sodium 100 MG PO SCH (21:42)
[2023-06-02] MEDS: Flomax 0.4 MG PO SCH (21:42)
[2023-06-02] MEDS: HUMALOG SQ PRN (21:46)
[2023-06-02] MEDS ORDERED: NON-FORMULARY ITEM (Duloxetine Hcl [Cymbalta] 60 MG Capsule.Dr) PO SCH (22:00)
[2023-06-02] MEDS ORDERED: ALGAL OIL PO SCH (22:00)
[2023-06-02] MEDS ORDERED: DEXTROMETHORPHAN HBR 15 MG PO SCH ×2 (22:00)
[2023-06-02] MEDS ORDERED: LIPITOR 40MG PO SCH (22:00)
[2023-06-02] MEDS ORDERED: PROVENTIL 2.5 MG/3 ML NEB IH SCH (22:00)
[2023-06-02] MEDS ORDERED: NON-FORMULARY ITEM (Divalproex Sodium [Depakote] 500 MG Tablet.Dr) PO SCH (22:00)
[2023-06-02] MEDS ORDERED: ACARBOSE 50 MG PO SCH (22:00)
[2023-06-02] MEDS ORDERED: [UNRECOGNIZED DRUG - OTHER] PO SCH (22:00)
[2023-06-02] MEDS ORDERED: ALBUTEROL SULFATE 0.63 MG/3 ML IH SCH (22:00)
[2023-06-02] MEDS ORDERED: LEVOMEFOLATE PO SCH (22:00)
[2023-06-03 04:49] LABS: Hematocrit 34.7 % (42-50); Hemoglobin 10.9 g/dL (12.5-18.0); Mean Cell Volume 88.7 fL (78-100); Mean Corpuscular Hemoglobin 27.9 pg (26-32); Mean Corpuscular Hgb Concent. 31.4 g/dL (32-36); Mean Platelet Volume 10.2 fL (7.5-11.0); Platelet Count 192 x10^3/uL (150-450); Red Blood Count 3.91 x10^6/uL (4.1-5.6); Red Cell Distribution Width 17.2 % (11.5-14.0); White Blood Count 15.8 x10^3/uL (4.0-10.5)
[2023-06-03 05:03] LABS: ALBUMIN 3.6 g/dL (3.5-5.0); ANION GAP 13.6 MEQ/L (5-15); BILIRUBIN,TOTAL 0.3 mg/dL (0.2-1.3); Calcium 9.3 mg/dL (8.4-10.2); Creatinine 1 0.72 mg/dL (0.66-1.25); EST GLOMERULAR FILTRATION RATE 100.8 ML/MIN; Potassium 3.6 mmol/L (3.5-5.1); Total Protein 6.4 g/dL (6.3-8.2)
[2023-06-03] MEDS: Spiriva 18 Mcg/Cap Inhaler IH SCH (06:33)
[2023-06-03] MEDS: DUONEB 0.5-3 MG/3 ml Neb IH SCH ×4 (06:33→18:41)
[2023-06-03] MEDS: Protonix 40MG Tablet PO SCH ×2 (08:16→16:30)
[2023-06-03] MEDS: Zithromax 500 MG/ 250 ML NaCl Premix 500 MG/250 ML IVPB IV SCH (08:47)
[2023-06-03] MEDS: Cymbalta 30 MG Capsule PO SCH ×2 (08:52→21:36)
[2023-06-03] MEDS: Ditropan XL 5 MG PO SCH (08:52)
[2023-06-03] MEDS: ECOTRIN 81 MG PO SCH (08:52)
[2023-06-03] MEDS: VITAMIN D PO SCH (08:52)
[2023-06-03] MEDS: MYSOLINE 50MG PO SCH ×3 (08:52→21:37)
[2023-06-03] MEDS: NEURONTIN PO SCH ×3 (08:53→21:36)
[2023-06-03] MEDS: Calcium 500MG W/Vit D Tablet PO SCH (08:53)
[2023-06-03] MEDS: CLARITIN 10 MG PO SCH (08:53)
[2023-06-03] MEDS: Docusate Sodium 100 MG PO SCH ×2 (08:53→21:37)
[2023-06-03] MEDS: TYLENOL EXTRA STRENGTH 500 MG PO SCH ×3 (08:53→21:37)
[2023-06-03] MEDS: ENOXAPARIN SODIUM SQ SCH (08:53)
[2023-06-03] MEDS: Wellbutrin XL 150 MG PO SCH (08:53)
[2023-06-03] MEDS: Lantus Insulin SQ SCH (08:54)
[2023-06-03] MEDS: THEOPHYLLINE ER 24HR PO SCH ×2 (08:54→21:38)
[2023-06-03] MEDS: JARDIANCE PO SCH (08:54)
[2023-06-03] MEDS ORDERED: NON-FORMULARY ITEM (Aspirin [Aspirin] 81 MG Tablet) PO SCH (10:00)
[2023-06-03] MEDS ORDERED: VITAMIN D3 PO SCH (10:00)
[2023-06-03] MEDS ORDERED: [UNRECOGNIZED DRUG - OTHER] PO SCH (10:00)
[2023-06-03] MEDS ORDERED: NON-FORMULARY ITEM (Oxybutynin Chloride [Oxybutynin Chloride Er] 10 MG Tab.Er.24) PO SCH (10:00)
[2023-06-03] MEDS ORDERED: CALCIUM CARBONATE PO SCH (10:00)
--- NOTE | 2023-06-03 10:19 | PCM.NOTE ---
Date and Time: 06/03/23 1010 Subjective Assessment: 06/02/23 Mr. RIOS is a 68 year old male with PMHX of Epilespy, peripheral neuropathy, seizures, hyperlipidemia, asthma, COPD, pneumonia, Type II DM, DJD, OA, Hernia, Depression, Prostate problems, Head injury at age 8, lumbar fusion. He presented to ER by ambulance from home with a complaint of severe cough.The onset of symptoms was today he also had chills and rigors his sister who cares for him and is concerned that he has pneumonia. He does have a history of frequent pneumonia and he also has COPD. He is currently on 2LNC with a sat of 90%. HR is 101. WBC 13.5 Lactic acid WNL. Lungs sound coarse throughout. Chest XR shows new right mid to lower lung patchy airspace disease without consolidation/large effusion. Stable left base subsegmental atelectasis/scarring. Heart not enlarged. Bony thorax intact. Pt states he is also having some lumbar back discomfort. He admits to drinking his sisters mountain dew and is supposed to be on thickened liquids. Dx may be related to aspiration pneumonia knowing this. He denies CP, abd. pain, N/V/D. 06/03/23 Pt resting in bed. He continues to be SOB with cough and coarse throughout lungs. On 2 LNC and baseline is O2 at night only. Will add Pulmicort. Ceftriaxone somehow was not added yesterday. This was added to start today. He has a PCN allergy but per pharmacy has had ceftrixone in the past without any concerns. He denies CP, Abd. pain, N/V/D. <CANELO TREVIÑO - Last Filed: 06/03/23 10:37> Date and Time: 06/03/232009 <RICK PORTILLO - Last Filed: 06/03/23 20:11> - Review of Systems Constitutional: No Fever, No Chills Eyes: No Symptoms Ears, Nose, & Throat: No Symptoms Respiratory: Cough, Short Of Breath Cardiac: No Chest Pain, No Edema, No Syncope Abdominal/Gastrointestinal: No Abdominal Pain, No Nausea, No Vomiting, No Diarrhea Genitourinary Symptoms: No Dysuria Musculoskeletal: No Back Pain, No Neck Pain Skin: No Rash Neurological: No Dizziness, No Focal Weakness, No Sensory Changes Psychological: No Symptoms Endocrine: No Symptoms Hematologic/Lymphatic: No Symptoms Immunological/Allergic: No Symptoms <CANELO TREVIÑO - Last Filed: 06/03/23 10:37> Objective Exam General Appearance: no apparent distress, alert Neurologic Exam: alert, oriented x 3, cooperative, normal mood/affect, nml cerebellar function, sensation nml, No motor deficits Skin Exam: normal color, warm, dry Eye Exam: PERRL, EOMI, eyes nml inspection Ears, Nose, Throat Exam: normal ENT inspection, pharynx normal, moist mucous membranes Neck Exam: normal inspection, non-tender, supple, full range of motion Respiratory Exam: normal breath sounds, lungs clear, crackles/rales (thro ughout), No respiratory distress Cardiovascular Exam: regular rate/rhythm, normal heart sounds Gastrointestinal/Abdomen Exam: soft, No tenderness, No mass Extremity Exam: normal inspection, normal range of motion Back Exam: normal inspection, normal range of motion, No CVA tenderness, No vertebral tenderness Male Genitalia Exam: deferred Rectal Exam: deferred <CANELO TREVIÑO - Last Filed: 06/03/23 10:37> OBJECTIVE DATA Vital Signs: Vital Signs - 24 hr Temp Pulse Resp BP BP Pulse Ox 06/03/23 07:16 98.7 F 83 18 120/59 93 L 06/03/23 06:34 87 18 94 L 06/03/23 04:00 96.9 F 80 18 114/54 94 L 06/02/23 23:44 97.1 F 87 18 120/59 95 06/02/23 18:45 108 H 18 97 06/02/23 18:35 97.1 F 67 18 134/68 92 L 06/02/23 16:15 90 L 06/02/23 16:04 101 H 18 93 L 06/02/23 15:33 98.2 F 107 H 16 138/74 91 L 06/02/23 15:32 98.2 F 97 H 16 138/74 90 L 06/02/23 14:50 92 L 06/02/23 14:00 151 H 28 H 130/75 92 L 06/02/23 13:00 119 H 17 127/79 92 L 06/02/23 12:25 24 97 06/02/23 12:18 97.4 F 115 H 18 145/81 95 Oxygen-Last 24 hours Oxygen Flowrate (L/min)-RT 2 Pain Assessment - Last Documented Pain Intensity 2 Pain Scale Used 0-10 Pain Scale Intake and Output: Intake & Output 05/31/23 06/01/23 06/02/23 06/03/23 12:59 11:59 11:59 11:59 Intake Total 3154 Output Total 1200 Balance 1954 Weight 73.9 kg Lab Results: Lab Results-Last 24 Hours 06/02/23 06/02/23 06/02/23 Range/Units 12:25 12:25 12:42 WBC 13.5 H (4.0-10.5) x10^3/uL RBC 5.00 (4.1-5.6) x10^6/uL Hgb 14.0 (12.5-18.0) g/dL Hct 44.9 (42-50) % MCV 89.8 (78-100) fL MCH 28.0 (26-32) pg MCHC 31.2 L (32-36) g/dL RDW 16.5 H (11.5-14.0) % Plt Count 194 (150-450) x10^3/uL MPV 10.0 (7.5-11.0) fL Segmented Neutrophils 60 (36.-66.) % Lymphocytes (Manual) 32 (24-44) % Monocytes (Manual) 1 (0.0-12.0) % Atypical Lymphocytes 7 % Platelet Estimate NORMAL (NORMAL) RBC Morphology NORMAL PT (9.4-12.5) SECONDS INR (0.8-3.0) Sodium 139 (137-145) mmol/L Potassium 3.9 (3.5-5.1) mmol/L Chloride 97 L (98-107) mmol/L Carbon Dioxide 27 (22-30) mmol/L Anion Gap 18.3 H (5-15) MEQ/L BUN 14 (9-20) mg/dL Creatinine 0.87 (0.66-1.25) mg/dL Estimated GFR 95.2 ML/MIN Glucose 131 H (74-106) mg/dL POC Glucometer (74 to 106) mg/dL Lactic Acid 1.9 (0.4-2.0) Calcium 10.4 H (8.4-10.2) mg/dL Total Bilirubin 0.50 (0.2-1.3) mg/dL AST 32 (17-59) U/L ALT 24 (0-50) U/L Alkaline Phosphatase 65 (38-126) U/L Serum Total Protein 8.2 (6.3-8.2) g/dL Albumin 4.7 (3.5-5.0) g/dL Procalcitonin (0.030-0.080) ng/mL Urine Color (Yellow) Urine Appearance (Clear) Urine pH (4.6-8.0) Ur Specific [place] (1.005-1.030) Urine Protein (Negative) Urine Glucose (UA) (Negative) mg/dL Urine Ketones (Negative) Urine Blood (Negative) Urine Nitrite (Negative) Urine Bilirubin (Negative) Urine Urobilinogen (0.2) mg/dL Ur Leukocyte Esterase (Negative) U Hyaline Cast (Auto) (0-2) /LPF Urine Microscopic RBC (0-5) /HPF Urine Microscopic WBC (0-5) /HPF Ur Epithelial Cells (None Seen) /HPF Urine Bacteria (None Seen) /HPF Urine Culture Reflexed (NO) Influenza Type A Ag (NEGATIVE) Influenza Type B Ag (NEGATIVE) RSV (PCR) (NEGATIVE) SARS-CoV-2 (PCR) (NEGATIVE) 06/02/23 06/02/23 06/02/23 Range/Units 12:42 12:42 12:50 WBC (4.0-10.5) x10^3/uL RBC (4.1-5.6) x10^6/uL Hgb (12.5-18.0) g/dL Hct (42-50) % MCV (78-100) fL MCH (26-32) pg MCHC (32-36) g/dL RDW (11.5-14.0) % Plt Count (150-450) x10^3/uL MPV (7.5-11.0) fL Segmented Neutrophils (36.-66.) % Lymphocytes (Manual) (24-44) % Monocytes (Manual) (0.0-12.0) % Atypical Lymphocytes % Platelet Estimate (NORMAL) RBC Morphology PT 10.9 (9.4-12.5) SECONDS INR 1.00 (0.8-3.0) Sodium (137-145) mmol/L Potassium (3.5-5.1) mmol/L Chloride (98-107) mmol/L Carbon Dioxide (22-30) mmol/L Anion Gap (5-15) MEQ/L BUN (9-20) mg/dL Creatinine (0.66-1.25) mg/dL Estimated GFR ML/MIN Glucose (74-106) mg/dL POC Glucometer (74 to 106) mg/dL Lactic Acid (0.4-2.0) Calcium (8.4-10.2) mg/dL Total Bilirubin (0.2-1.3) mg/dL AST (17-59) U/L ALT (0-50) U/L Alkaline Phosphatase (38-126) U/L Serum Total Protein (6.3-8.2) g/dL Albumin (3.5-5.0) g/dL Procalcitonin 0.088 H (0.030-0.080) ng/mL Urine Color (Yellow) Urine Appearance (Clear) Urine pH (4.6-8.0) Ur Specific [place] (1.005-1.030) Urine Protein (Negative) Urine Glucose (UA) (Negative) mg/dL Urine Ketones (Negative) Urine Blood (Negative) Urine Nitrite (Negative) Urine Bilirubin (Negative) Urine Urobilinogen (0.2) mg/dL Ur Leukocyte Esterase (Negative) U Hyaline Cast (Auto) (0-2) /LPF Urine Microscopic RBC (0-5) /HPF Urine Microscopic WBC (0-5) /HPF Ur Epithelial Cells (None Seen) /HPF Urine Bacteria (None Seen) /HPF Urine Culture Reflexed (NO) Influenza Type A Ag NEGATIVE (NEGATIVE) Influenza Type B Ag NEGATIVE (NEGATIVE) RSV (PCR) NEGATIVE (NEGATIVE) SARS-CoV-2 (PCR) NEGATIVE (NEGATIVE) 06/02/23 06/02/23 06/02/23 Range/Units 14:18 16:22 21:11 WBC (4.0-10.5) x10^3/uL RBC (4.1-5.6) x10^6/uL Hgb (12.5-18.0) g/dL Hct (42-50) % MCV (78-100) fL MCH (26-32) pg MCHC (32-36) g/dL RDW (11.5-14.0) % Plt Count (150-450) x10^3/uL MPV (7.5-11.0) fL Segmented Neutrophils (36.-66.) % Lymphocytes (Manual) (24-44) % Monocytes (Manual) (0.0-12.0) % Atypical Lymphocytes % Platelet Estimate (NORMAL) RBC Morphology PT (9.4-12.5) SECONDS INR (0.8-3.0) Sodium (137-145) mmol/L Potassium (3.5-5.1) mmol/L Chloride (98-107) mmol/L Carbon Dioxide (22-30) mmol/L Anion Gap (5-15) MEQ/L BUN (9-20) mg/dL Creatinine (0.66-1.25) mg/dL Estimated GFR ML/MIN Glucose (74-106) mg/dL POC Glucometer 154 H 227 H (74 to 106) mg/dL Lactic Acid (0.4-2.0) Calcium (8.4-10.2) mg/dL Total Bilirubin (0.2-1.3) mg/dL AST (17-59) U/L ALT (0-50) U/L Alkaline Phosphatase (38-126) U/L Serum Total Protein (6.3-8.2) g/dL Albumin (3.5-5.0) g/dL Procalcitonin (0.030-0.080) ng/mL Urine Color Yellow (Yellow) Urine Appearance Clear (Clear) Urine pH 8.0 (4.6-8.0) Ur Specific [place] >=1.030 A (1.005-1.030) Urine Protein Negative (Negative) Urine Glucose (UA) >=1000 A (Negative) mg/dL Urine Ketones 15 A (Negative) Urine Blood Negative (Negative) Urine Nitrite Negative (Negative) Urine Bilirubin Negative (Negative) Urine Urobilinogen 0.2 (0.2) mg/dL Ur Leukocyte Esterase Negative (Negative) U Hyaline Cast (Auto) NONE SEEN (0-2) /LPF Urine Microscopic RBC 0-2 (0-5) /HPF Urine Microscopic WBC 6-10 A (0-5) /HPF Ur Epithelial Cells None Seen (None Seen) /HPF Urine Bacteria None Seen (None Seen) /HPF Urine Culture Reflexed NO (NO) Influenza Type A Ag (NEGATIVE) Influenza Type B Ag (NEGATIVE) RSV (PCR) (NEGATIVE) SARS-CoV-2 (PCR) (NEGATIVE) 06/03/23 06/03/23 06/03/23 Range/Units 04:45 04:45 06:27 WBC 15.8 H (4.0-10.5) x10^3/uL RBC 3.91 L (4.1-5.6) x10^6/uL Hgb 10.9 L D (12.5-18.0) g/dL Hct 34.7 L (42-50) % MCV 88.7 (78-100) fL MCH 27.9 (26-32) pg MCHC 31.4 L (32-36) g/dL RDW 17.2 H (11.5-14.0) % Plt Count 192 (150-450) x10^3/uL MPV 10.2 (7.5-11.0) fL Segmented Neutrophils (36.-66.) % Lymphocytes (Manual) (24-44) % Monocytes (Manual) (0.0-12.0) % Atypical Lymphocytes % Platelet Estimate (NORMAL) RBC Morphology PT (9.4-12.5) SECONDS INR (0.8-3.0) Sodium 138 (137-145) mmol/L Potassium 3.6 (3.5-5.1) mmol/L Chloride 102 (98-107) mmol/L Carbon Dioxide 26 (22-30) mmol/L Anion Gap 13.6 (5-15) MEQ/L BUN 15 (9-20) mg/dL Creatinine 0.72 (0.66-1.25) mg/dL Estimated GFR 100.8 ML/MIN Glucose 125 H (74-106) mg/dL POC Glucometer 141 H (74 to 106) mg/dL Lactic Acid (0.4-2.0) Calcium 9.3 (8.4-10.2) mg/dL Total Bilirubin 0.30 (0.2-1.3) mg/dL AST 23 (17-59) U/L ALT 19 (0-50) U/L Alkaline Phosphatase 48 (38-126) U/L Serum Total Protein 6.4 (6.3-8.2) g/dL Albumin 3.6 (3.5-5.0) g/dL Procalcitonin (0.030-0.080) ng/mL Urine Color (Yellow) Urine Appearance (Clear) Urine pH (4.6-8.0) Ur Specific [place] (1.005-1.030) Urine Protein (Negative) Urine Glucose (UA) (Negative) mg/dL Urine Ketones (Negative) Urine Blood (Negative) Urine Nitrite (Negative) Urine Bilirubin (Negative) Urine Urobilinogen (0.2) mg/dL Ur Leukocyte Esterase (Negative) U Hyaline Cast (Auto) (0-2) /LPF Urine Microscopic RBC (0-5) /HPF Urine Microscopic WBC (0-5) /HPF Ur Epithelial Cells (None Seen) /HPF Urine Bacteria (None Seen) /HPF Urine Culture Reflexed (NO) Influenza Type A Ag (NEGATIVE) Influenza Type B Ag (NEGATIVE) RSV (PCR) (NEGATIVE) SARS-CoV-2 (PCR) (NEGATIVE) Radiology Exams: Radiology Procedures Category Date Time Status CHEST 1 VIEW (PORTABLE) Stat Exams 06/02/23 12:25 Completed <CANELO TREVIÑO - Last Filed: 06/03/23 10:37> Vital Signs: Vital Signs - 24 hr Temp Pulse Resp BP Pulse Ox 06/03/23 18:40 91 H 20 97 06/03/23 16:00 98.7 F 86 18 115/55 96 06/03/23 15:05 93 H 16 96 06/03/23 12:00 989.7 F 116 H 18 125/58 86 L 06/03/23 11:00 103 H 14 91 L 06/03/23 07:16 98.7 F 83 18 120/59 93 L 06/03/23 06:34 87 18 94 L 06/03/23 04:00 96.9 F 80 18 114/54 94 L 06/02/23 23:44 97.1 F 87 18 120/59 95 Pain Assessment - Last Documented Pain Intensity 2 Pain Scale Used 0-10 Pain Scale Intake and Output: Intake & Output 06/01/23 06/02/23 06/03/23 06/04/23 11:59 11:59 11:59 11:59 Intake Total 3154 960 Output Total 1200 Balance 1954 960 Weight 73.9 kg Lab Results: Lab Results-Last 24 Hours 11/06/23 11/07/23 11/07/23 Range/Units 21:11 04:45 04:45 WBC 15.8 H (4.0-10.5) x10^3/uL RBC 3.91 L (4.1-5.6) x10^6/uL Hgb 10.9 L D (12.5-18.0) g/dL Hct 34.7 L (42-50) % MCV 88.7 (78-100) fL MCH 27.9 (26-32) pg MCHC 31.4 L (32-36) g/dL RDW 17.2 H (11.5-14.0) % Plt Count 192 (150-450) x10^3/uL MPV 10.2 (7.5-11.0) fL Sodium 138 (137-145) mmol/L Potassium 3.6 (3.5-5.1) mmol/L Chloride 102 (98-107) mmol/L Carbon Dioxide 26 (22-30) mmol/L Anion Gap 13.6 (5-15) MEQ/L BUN 15 (9-20) mg/dL Creatinine 0.72 (0.66-1.25) mg/dL Estimated GFR 100.8 ML/MIN Glucose 125 H (74-106) mg/dL POC Glucometer 227 H (74 to 106) mg/dL Calcium 9.3 (8.4-10.2) mg/dL Total Bilirubin 0.30 (0.2-1.3) mg/dL AST 23 (17-59) U/L ALT 19 (0-50) U/L Alkaline Phosphatase 48 (38-126) U/L Serum Total Protein 6.4 (6.3-8.2) g/dL Albumin 3.6 (3.5-5.0) g/dL 06/03/23 06/03/23 06/03/23 Range/Units 06:27 11:26 16:17 WBC (4.0-10.5) x10^3/uL RBC (4.1-5.6) x10^6/uL Hgb (12.5-18.0) g/dL Hct (42-50) % MCV (78-100) fL MCH (26-32) pg MCHC (32-36) g/dL RDW (11.5-14.0) % Plt Count (150-450) x10^3/uL MPV (7.5-11.0) fL Sodium (137-145) mmol/L Potassium (3.5-5.1) mmol/L Chloride (98-107) mmol/L Carbon Dioxide (22-30) mmol/L Anion Gap (5-15) MEQ/L BUN (9-20) mg/dL Creatinine (0.66-1.25) mg/dL Estimated GFR ML/MIN Glucose (74-106) mg/dL POC Glucometer 141 H 145 H 219 H (74 to 106) mg/dL Calcium (8.4-10.2) mg/dL Total Bilirubin (0.2-1.3) mg/dL AST (17-59) U/L ALT (0-50) U/L Alkaline Phosphatase (38-126) U/L Serum Total Protein (6.3-8.2) g/dL Albumin (3.5-5.0) g/dL Radiology Exams: Radiology Procedures Category Date Time Status CHEST 1 VIEW (PORTABLE) Stat Exams 06/02/23 12:25 Completed <RICK PORTILLO - Last Filed: 06/03/23 20:11> Assessment/Plan (1) Aspiration pneumonia Current Visit: No Status: Acute Code(s): J69.0 - PNEUMONITIS DUE TO INHALATION OF FOOD AND VOMIT (2) Tachycardia Current Visit: No Status: Acute Code(s): R00.0 - TACHYCARDIA, UNSPECIFIED (3) Diabetes type 2, uncontrolled Current Visit: No Status: Chronic Qualifiers: Glycemic state: with hyperglycemia Qualified Code(s): E11.65 - Type 2 diabetes mellitus with hyperglycemia Code(s): E11.65 - TYPE 2 DIABETES MELLITUS WITH HYPERGLYCEMIA (4) Hx of traumatic brain injury Current Visit: No Status: Chronic Assessment & Plan: (1) Aspiration pneumonia Current Visit: No Status: Acute Assessment & Plan: - BC, Sputum culture - O2 to keep > 92% - RT eval and treat - duonebs, albuterol - ceftriaxone, azithromycin - tussin for cough 06/03 - Budesonide added - 2LNC- baseline is 2 L @ noc only - WBC increased 15.8- trend - procal 0.080 - chest XR: Portable chest demonstrates new right mid to lower lung patchy airspace disease without consolidation/large effusion. Stable left base subsegmental atelectasis/scarring. Heart not enlarged. Bony thorax intact. Code(s): J69.0 - PNEUMONITIS DUE TO INHALATION OF FOOD AND VOMIT (2) Tachycardia Current Visit: No Status: Acute Assessment & Plan: - Tele - 2:2 pneumonia - IVF Code(s): R00.0 - TACHYCARDIA, UNSPECIFIED (3) Diabetes type 2, uncontrolled Current Visit: No Status: Chronic Qualifiers: Glycemic state: with hyperglycemia Qualified Code(s): E11.65 - Type 2 diabetes mellitus with hyperglycemia Assessment & Plan: - S/S, lantus - 04/29/23 A1c 6.01 Code(s): E11.65 - TYPE 2 DIABETES MELLITUS WITH HYPERGLYCEMIA (4) Hx of traumatic brain injury Current Visit: No Status: Chronic Assessment & Plan: - chronic - adds complexity as pt sneaks liquids when need to only drink thickened liquids. VTE: lovenox Next of kin: sister D/C plan: 1-2 days Code status: SCO/DNR Code(s): Z87.820 - PERSONAL HISTORY OF TRAUMATIC BRAIN INJURY <CANELO TREVIÑO - Last Filed: 06/03/23 10:37> SAM Encounter - SAM Encounter Attestation SAM Encounter Attestation: "IhavepersonallyseenandexaminedMURJUDAH,HANS YAMILA andhavediscussed pertinent aspects of their care with Canelo Loomis agree with the history, physical exam (any modifications based on my personal exam will be noted below), assessment, and plan as outlined in original note. Please see immediately below for my summary of findings and additional assessment and plan along with any meaningful corrections/explanations to the Subjective/Objective portions of the SAM note will be noted." My portion of the encounter took place via telemedicine. -Reports cough and shortness of breath but oxygen requirements stable on 2L. Continue ceftriaxone and azithromycin. <RICK PORTILLO - Last Filed: 06/03/23 20:11>
[2023-06-03] MEDS: PULMICORT 0.5 MG/2 ML RESPULES IH SCH ×2 (10:59→18:41)
[2023-06-03] MEDS: ROCEPHIN 1 Gm-D5w 50 ml Bag** 1 G/50 ML IVPB IV SCH (11:33)
[2023-06-03] MEDS: Flomax 0.4 MG PO SCH (21:36)
[2023-06-03] MEDS: ZOCOR 20MG PO SCH (21:36)
[2023-06-04 05:50] LABS: Hematocrit 35.9 % (42-50); Hemoglobin 11.1 g/dL (12.5-18.0); Mean Corpuscular Hemoglobin 27.8 pg (26-32); Mean Corpuscular Hgb Concent. 30.9 g/dL (32-36); Mean Platelet Volume 10.3 fL (7.5-11.0); Platelet Count 189 x10^3/uL (150-450); Red Blood Count 3.99 x10^6/uL (4.1-5.6); Red Cell Distribution Width 16.8 % (11.5-14.0); White Blood Count 13.5 x10^3/uL (4.0-10.5)
[2023-06-04 06:12] LABS: ALBUMIN 3.7 g/dL (3.5-5.0); ANION GAP 13.4 MEQ/L (5-15); BILIRUBIN,TOTAL 0.2 mg/dL (0.2-1.3); Calcium 9.5 mg/dL (8.4-10.2); Creatinine 1 0.72 mg/dL (0.66-1.25); EST GLOMERULAR FILTRATION RATE 100.8 ML/MIN; Potassium 3.9 mmol/L (3.5-5.1); Total Protein 6.5 g/dL (6.3-8.2)
[2023-06-04 07:09] LABS: Slide Review YES
[2023-06-04] MEDS: DUONEB 0.5-3 MG/3 ml Neb IH SCH ×4 (07:32→18:49)
[2023-06-04] MEDS: PULMICORT 0.5 MG/2 ML RESPULES IH SCH ×2 (07:33→18:49)
[2023-06-04] MEDS: Spiriva 18 Mcg/Cap Inhaler IH SCH (07:35)
[2023-06-04] MEDS: ROCEPHIN 1 Gm-D5w 50 ml Bag** 1 G/50 ML IVPB IV SCH (08:59)
[2023-06-04] MEDS: Cymbalta 30 MG Capsule PO SCH ×2 (09:03→21:10)
[2023-06-04] MEDS: Ditropan XL 5 MG PO SCH (09:03)
[2023-06-04] MEDS: Calcium 500MG W/Vit D Tablet PO SCH (09:03)
[2023-06-04] MEDS: TYLENOL EXTRA STRENGTH 500 MG PO SCH ×3 (09:03→21:09)
[2023-06-04] MEDS: ECOTRIN 81 MG PO SCH (09:03)
[2023-06-04] MEDS: Protonix 40MG Tablet PO SCH ×2 (09:03→17:21)
[2023-06-04] MEDS: ENOXAPARIN SODIUM SQ SCH (09:03)
[2023-06-04] MEDS: VITAMIN D PO SCH (09:03)
[2023-06-04] MEDS: Docusate Sodium 100 MG PO SCH ×2 (09:03→21:11)
[2023-06-04] MEDS: MYSOLINE 50MG PO SCH ×3 (09:04→21:11)
[2023-06-04] MEDS: NEURONTIN PO SCH ×3 (09:04→21:09)
[2023-06-04] MEDS: JARDIANCE PO SCH (09:04)
[2023-06-04] MEDS: Lantus Insulin SQ SCH (09:04)
[2023-06-04] MEDS: Wellbutrin XL 150 MG PO SCH (09:04)
[2023-06-04] MEDS: CLARITIN 10 MG PO SCH (09:04)
[2023-06-04] MEDS: THEOPHYLLINE ER 24HR PO SCH ×2 (09:04→21:11)
[2023-06-04] MEDS: Zithromax 500 MG/ 250 ML NaCl Premix 500 MG/250 ML IVPB IV SCH (09:37)
--- NOTE | 2023-06-04 13:47 | XRAY ---
Indication: Possible swallow concerns. Modified barium swallow study performed by the Department of speech therapy with fluoroscopic assistance provided. Patient ingested multiple consistencies of liquids and solids. Full report and recommendations will be reported separately. Approximately 58 seconds fluoroscopy used.
--- NOTE | 2023-06-04 15:19 | PCM.NOTE ---
Date and Time: 06/04/23 1507 Subjective Assessment: 06/02/23 Mr. RIOS is a 68 year old male with PMHX of Epilespy, peripheral neuropathy, seizures, hyperlipidemia, asthma, COPD, pneumonia, Type II DM, DJD, OA, Hernia, Depression, Prostate problems, Head injury at age 8, lumbar fusion. He presented to ER by ambulance from home with a complaint of severe cough.The onset of symptoms was today he also had chills and rigors his sister who cares for him and is concerned that he has pneumonia. He does have a history of frequent pneumonia and he also has COPD. He is currently on 2LNC with a sat of 90%. HR is 101. WBC 13.5 Lactic acid WNL. Lungs sound coarse throughout. Chest XR shows new right mid to lower lung patchy airspace disease without consolidation/large effusion. Stable left base subsegmental atelectasis/scarring. Heart not enlarged. Bony thorax intact. Pt states he is also having some lumbar back discomfort. He admits to drinking his sisters mountain dew and is supposed to be on thickened liquids. Dx may be related to aspiration pneumonia knowing this. He denies CP, abd. pain, N/V/D. 06/03/23 Pt resting in bed. He continues to be SOB with cough and coarse throughout lungs. On 2 LNC and baseline is O2 at night only. Will add Pulmicort. Ceftriaxone somehow was not added yesterday. This was added to start today. He has a PCN allergy but per pharmacy has had ceftrixone in the past without any concerns. He denies CP, Abd. pain, N/V/D. 06/04/23 Pt sitting up in the chair. He continues to have coarse lung sounds throughout. He continues to be on baseline oxygen. Modified barium swallow ordered and results/ recommendations pending. He admits to getting up nad drinking no thicken water and mountain dew at times. He is admitted often for aspiration pneumonia. Discussed risk of drinking thin liquids and he explains he has difficulty, WBC has improved. He denies Cp, Abd. pain, N/V/D. <CANELO TREVIÑO - Last Filed: 06/04/23 15:07> Date and Time: 06/04/23 1828 <RICK PORTILLO - Last Filed: 06/04/23 18:29> - Review of Systems Constitutional: No Fever, No Chills Eyes: No Symptoms Ears, Nose, & Throat: No Symptoms Respiratory: Cough, Short Of Breath Cardiac: No Chest Pain, No Edema, No Syncope Abdominal/Gastrointestinal: No Abdominal Pain, No Nausea, No Vomiting, No Diarrhea Genitourinary Symptoms: No Dysuria Musculoskeletal: No Back Pain, No Neck Pain Skin: No Rash Neurological: No Dizziness, No Focal Weakness, No Sensory Changes Psychological: No Symptoms Endocrine: No Symptoms Hematologic/Lymphatic: No Symptoms Immunological/Allergic: No Symptoms <CANELO TREVIÑO - Last Filed: 06/04/23 15:07> Objective Exam General Appearance: no apparent distress, alert Neurologic Exam: alert, oriented x 3, cooperative, normal mood/affect, nml cerebellar function, sensation nml, No motor deficits Skin Exam: normal color, warm, dry Eye Exam: PERRL, EOMI, eyes nml inspection Ears, Nose, Throat Exam: normal ENT inspection, pharynx normal, moist mucous membranes Neck Exam: normal inspection, non-tender, supple, full range of motion Respiratory Exam: crackles/rales (throughout), No respiratory distress Cardiovascular Exam: regular rate/rhythm, normal heart sounds Gastrointestinal/Abdomen Exam: soft, No tenderness, No mass Extremity Exam: normal inspection, normal range of motion Back Exam: normal inspection, normal range of motion, No CVA tenderness, No vertebral tenderness Male Genitalia Exam: deferred Rectal Exam: deferred <CANELO TREVIÑO - Last Filed: 06/04/23 15:07> OBJECTIVE DATA Vital Signs: Vital Signs - 24 hr Temp Pulse Resp BP Pulse Ox 06/04/23 12:00 97.5 F 104 H 20 166/82 95 06/04/23 11:02 96 H 16 96 06/04/23 07:41 97.1 F 98 H 26 H 137/73 97 06/04/23 07:36 94 H 18 94 L 06/04/23 04:00 97.8 F 93 H 21 122/65 96 06/04/23 00:00 97.8 F 95 H 18 134/69 97 06/03/23 20:00 97.1 F 95 H 20 123/75 97 06/03/23 18:40 91 H 20 97 06/03/23 16:00 98.7 F 86 18 115/55 96 Pain Assessment - Last Documented Pain Intensity 0 Pain Scale Used 0-10 Pain Scale Intake and Output: Intake & Output 06/02/23 06/03/23 06/04/23 06/05/23 11:59 11:59 11:59 11:59 Intake Total 3154 1600 240 Output Total 1200 1400 Balance 1954 200 240 Weight 73.9 kg Lab Results: Lab Results-Last 24 Hours 06/03/23 06/03/23 06/04/23 Range/Units 16:17 22:05 04:54 WBC 13.5 H (4.0-10.5) x10^3/uL RBC 3.99 L (4.1-5.6) x10^6/uL Hgb 11.1 L (12.5-18.0) g/dL Hct 35.9 L (42-50) % MCV 90.0 (78-100) fL MCH 27.8 (26-32) pg MCHC 30.9 L (32-36) g/dL RDW 16.8 H (11.5-14.0) % Plt Count 189 (150-450) x10^3/uL MPV 10.3 (7.5-11.0) fL Sodium (137-145) mmol/L Potassium (3.5-5.1) mmol/L Chloride (98-107) mmol/L Carbon Dioxide (22-30) mmol/L Anion Gap (5-15) MEQ/L BUN (9-20) mg/dL Creatinine (0.66-1.25) mg/dL Estimated GFR ML/MIN Glucose (74-106) mg/dL POC Glucometer 219 H 175 H (74 to 106) mg/dL Calcium (8.4-10.2) mg/dL Total Bilirubin (0.2-1.3) mg/dL AST (17-59) U/L ALT (0-50) U/L Alkaline Phosphatase (38-126) U/L Serum Total Protein (6.3-8.2) g/dL Albumin (3.5-5.0) g/dL Theophylline (10-20) ug/mL Slides for Path Review YES 06/04/23 06/04/23 06/04/23 Range/Units 04:54 04:54 07:02 WBC (4.0-10.5) x10^3/uL RBC (4.1-5.6) x10^6/uL Hgb (12.5-18.0) g/dL Hct (42-50) % MCV (78-100) fL MCH (26-32) pg MCHC (32-36) g/dL RDW (11.5-14.0) % Plt Count (150-450) x10^3/uL MPV (7.5-11.0) fL Sodium 139 (137-145) mmol/L Potassium 3.9 (3.5-5.1) mmol/L Chloride 103 (98-107) mmol/L Carbon Dioxide 27 (22-30) mmol/L Anion Gap 13.4 (5-15) MEQ/L BUN 14 (9-20) mg/dL Creatinine 0.72 (0.66-1.25) mg/dL Estimated GFR 100.8 ML/MIN Glucose 133 H (74-106) mg/dL POC Glucometer 164 H (74 to 106) mg/dL Calcium 9.5 (8.4-10.2) mg/dL Total Bilirubin 0.20 (0.2-1.3) mg/dL AST 24 (17-59) U/L ALT 21 (0-50) U/L Alkaline Phosphatase 48 (38-126) U/L Serum Total Protein 6.5 (6.3-8.2) g/dL Albumin 3.7 (3.5-5.0) g/dL Theophylline 17.7 (10-20) ug/mL Slides for Path Review 06/04/23 Range/Units 11:22 WBC (4.0-10.5) x10^3/uL RBC (4.1-5.6) x10^6/uL Hgb (12.5-18.0) g/dL Hct (42-50) % MCV (78-100) fL MCH (26-32) pg MCHC (32-36) g/dL RDW (11.5-14.0) % Plt Count (150-450) x10^3/uL MPV (7.5-11.0) fL Sodium (137-145) mmol/L Potassium (3.5-5.1) mmol/L Chloride (98-107) mmol/L Carbon Dioxide (22-30) mmol/L Anion Gap (5-15) MEQ/L BUN (9-20) mg/dL Creatinine (0.66-1.25) mg/dL Estimated GFR ML/MIN Glucose (74-106) mg/dL POC Glucometer 127 H (74 to 106) mg/dL Calcium (8.4-10.2) mg/dL Total Bilirubin (0.2-1.3) mg/dL AST (17-59) U/L ALT (0-50) U/L Alkaline Phosphatase (38-126) U/L Serum Total Protein (6.3-8.2) g/dL Albumin (3.5-5.0) g/dL Theophylline (10-20) ug/mL Slides for Path Review Radiology Exams: Radiology Procedures Category Date Time Status MODIFIED BARIUM SWALLOW (RAD) [MODIFIED BARIUM SWALLOW Exams 06/04/23 12:08 Completed EXAM] Routine Multi-Disciplinary Progress Notes: Multi-Disciplinary Progress Notes 06/04/23 13:25 Physical Therapy Note by Blas(Mary Kay#[id number])Elli PT. WAS SEEN BY P.T. THIS A.M. PT .UP IN BEDSIDE RECLINER UPON P.T. ARRIVAL TO ROOM. REPORTS HE DID NOT SLEEP WELL LAST NIGHT D/T INCREASED LBP AFTER SLEEPING IN HOSPITAL BED. PT. AGREEABLE TO P.T. PERFORMED SIT TO STAND W/ SBAPT. CONT. ON 2 L O2. O2 SATS 95% ON 2 L AT REST. PERFORMED LE EX'S IN SITTING OF LAQS, MARCHES, HEEL SLIDES, AND SLRS W/ FREQUENT V.C. TO BREATHE PROPERLY. . PT. NOT ON O2 DURING DAY AT HOME; USES 2 L O2 AT NIGHT. STARTED OFF WALKING ON RA AND PT. O2 SATS DROPPED TO 88% AFTER WALKING ABOUT 40'. PUT PT. BACK ON 2L TO FINISH WALK. AMBULATED 120' W/ RW AND SBA. LESS LATERAL DEVIATION NOTED W/ GAIT TODAY. WILL CONT. P.T. 5X/WK UNTIL D/C TO INCREASE STRENGTH AND FUNCTIONAL ENDURANCE. Initialized on 06/04/23 13:25 - END OF NOTE 06/04/23 11:47 Case Management Note by Nadege Brand S/W SISTER CARTER- NO CHANGE IN DC PLANS AT THIS TIME. PATIENT TO RETURN HOME WITH SISTER PHYSICAL THERAPY REPORTED ANKLE SORE LIKELY FROM SHOES RUBBING- S/W CARTER- SHE IS AWARE AND HAS PLANS TO GET PATIENT AN APPOINTMENT FOR NEW SHOES ONCE HE IS FEELING BETTER. Initialized on 06/04/23 11:47 - END OF NOTE <CANELO TREVIÑO - Last Filed: 06/04/23 15:07> Vital Signs: Vital Signs - 24 hr Temp Pulse Resp BP Pulse Ox 06/04/23 16:00 97.6 F 108 H 16 123/78 96 06/04/23 15:25 100 H 16 95 06/04/23 12:00 97.5 F 104 H 20 166/82 95 06/04/23 11:02 96 H 16 96 06/04/23 07:41 97.1 F 98 H 26 H 137/73 97 06/04/23 07:36 94 H 18 94 L 06/04/23 04:00 97.8 F 93 H 21 122/65 96 06/04/23 00:00 97.8 F 95 H 18 134/69 97 06/03/23 20:00 97.1 F 95 H 20 123/75 97 06/03/23 18:40 91 H 20 97 Pain Assessment - Last Documented Pain Intensity 0 Pain Scale Used 0-10 Pain Scale Intake and Output: Intake & Output 06/02/23 06/03/23 06/04/23 06/05/23 11:59 11:59 11:59 11:59 Intake Total 3154 1600 480 Output Total 1200 1400 300 Balance 1954 200 180 Weight 73.9 kg Lab Results: Lab Results-Last 24 Hours 06/03/23 06/04/23 06/04/23 Range/Units 22:05 04:54 04:54 WBC 13.5 H (4.0-10.5) x10^3/uL RBC 3.99 L (4.1-5.6) x10^6/uL Hgb 11.1 L (12.5-18.0) g/dL Hct 35.9 L (42-50) % MCV 90.0 (78-100) fL MCH 27.8 (26-32) pg MCHC 30.9 L (32-36) g/dL RDW 16.8 H (11.5-14.0) % Plt Count 189 (150-450) x10^3/uL MPV 10.3 (7.5-11.0) fL Sodium 139 (137-145) mmol/L Potassium 3.9 (3.5-5.1) mmol/L Chloride 103 (98-107) mmol/L Carbon Dioxide 27 (22-30) mmol/L Anion Gap 13.4 (5-15) MEQ/L BUN 14 (9-20) mg/dL Creatinine 0.72 (0.66-1.25) mg/dL Estimated GFR 100.8 ML/MIN Glucose 133 H (74-106) mg/dL POC Glucometer 175 H (74 to 106) mg/dL Calcium 9.5 (8.4-10.2) mg/dL Total Bilirubin 0.20 (0.2-1.3) mg/dL AST 24 (17-59) U/L ALT 21 (0-50) U/L Alkaline Phosphatase 48 (38-126) U/L Serum Total Protein 6.5 (6.3-8.2) g/dL Albumin 3.7 (3.5-5.0) g/dL Theophylline (10-20) ug/mL Slides for Path Review YES 06/04/23 06/04/23 06/04/23 Range/Units 04:54 07:02 11:22 WBC (4.0-10.5) x10^3/uL RBC (4.1-5.6) x10^6/uL Hgb (12.5-18.0) g/dL Hct (42-50) % MCV (78-100) fL MCH (26-32) pg MCHC (32-36) g/dL RDW (11.5-14.0) % Plt Count (150-450) x10^3/uL MPV (7.5-11.0) fL Sodium (137-145) mmol/L Potassium (3.5-5.1) mmol/L Chloride (98-107) mmol/L Carbon Dioxide (22-30) mmol/L Anion Gap (5-15) MEQ/L BUN (9-20) mg/dL Creatinine (0.66-1.25) mg/dL Estimated GFR ML/MIN Glucose (74-106) mg/dL POC Glucometer 164 H 127 H (74 to 106) mg/dL Calcium (8.4-10.2) mg/dL Total Bilirubin (0.2-1.3) mg/dL AST (17-59) U/L ALT (0-50) U/L Alkaline Phosphatase (38-126) U/L Serum Total Protein (6.3-8.2) g/dL Albumin (3.5-5.0) g/dL Theophylline 17.7 (10-20) ug/mL Slides for Path Review 06/04/23 Range/Units 16:07 WBC (4.0-10.5) x10^3/uL RBC (4.1-5.6) x10^6/uL Hgb (12.5-18.0) g/dL Hct (42-50) % MCV (78-100) fL MCH (26-32) pg MCHC (32-36) g/dL RDW (11.5-14.0) % Plt Count (150-450) x10^3/uL MPV (7.5-11.0) fL Sodium (137-145) mmol/L Potassium (3.5-5.1) mmol/L Chloride (98-107) mmol/L Carbon Dioxide (22-30) mmol/L Anion Gap (5-15) MEQ/L BUN (9-20) mg/dL Creatinine (0.66-1.25) mg/dL Estimated GFR ML/MIN Glucose (74-106) mg/dL POC Glucometer 208 H (74 to 106) mg/dL Calcium (8.4-10.2) mg/dL Total Bilirubin (0.2-1.3) mg/dL AST (17-59) U/L ALT (0-50) U/L Alkaline Phosphatase (38-126) U/L Serum Total Protein (6.3-8.2) g/dL Albumin (3.5-5.0) g/dL Theophylline (10-20) ug/mL Slides for Path Review Radiology Exams: Radiology Procedures Category Date Time Status MODIFIED BARIUM SWALLOW (RAD) [MODIFIED BARIUM SWALLOW Exams 06/04/23 12:08 Completed EXAM] Routine Multi-Disciplinary Progress Notes: Multi-Disciplinary Progress Notes 06/04/23 17:37 Mod Barium Swallow Note by Krissy#[id number] Modified Barium Swallow Study ST Modified Barium Swallow Study Start: 06/04/23 15:26 Freq: Status: Active Protocol: Document 06/04/23 15:27 BM (Rec: 06/04/23 15:55 BM [id number]) E-Sign 06/04/23 15:27 BM Modified Barium Swallow Reason for Assessment Primary Diagnosis J18.9 - PNEUMONIA, UNSPECIFIED ORGANISM Treatment Diagnosis #1 R13.12 - DYSPHAGIA, OROPHARYNGEAL PHASE Reason for Assessment PATIENT REFERRED FOR MBS STUDY BY WASH OPERATORYAIR, DUE TO RE-ADMISSION FOR PNEUMONIA AND CONCERN OF INCREASE IN SEVERITY OF ASPIRATION/ DYSPHAGIA. SEE MEDICAL RECORD FOR PMH. PATIENT STATED THAT HE " SOMETIMES" DRINKS WITHOUT USE OF PUDDING THICK LIQUID CONSISTENCY BECAUSE HE JUST WANTS A DRINK OF WATER. Onset Date 06/02/23 Date of Evaluation/SOC 06/04/23 Pain Assessment Do you have pain on swallowing No Non-verbal signs & symptoms of pain No Modified Barium Swallow View This evaluation was completed to assess the functioning of the oral and pharyngeal phases of swallowing and to determine if the patient is aspirating or at risk for aspiration. Modified Barium Swallow View Lateral View Consistencies Assessed Barium trials included: [place] Liquid via Spoon,[place] Liquid via Straw,Thin Honey Liquid via spoon,Honey Liquid via Spoon,Pudding Liquid via spoon,Pureed Food,Paste on a Cookie Aspiration Risk Aspiration Observed Yes Amount of Aspiration Observed Small Patient considered at risk of aspiration Yes during oral intake Patient is at risk for aspiration After the swallow,Before the swallow,During the swallow Severity of Aspiration Risk Moderate to Severe Penetration into Laryngeal Vestibule Yes Penetration occured with [place] Thick Liquid,Thick Honey Consistency Reason for aspirational risk: PATIENT AT MODERATE RISK FOR ASPIRATION BEFORE THE SWALLOW DUE TO PREMATURE SPILLAGE TO VALLECULAE, PHARYNGEAL RECESSES, AND/OR TO LEVEL OF CRICOPHARYNGEUS WITH ALL CONSISTENCIES TRIALED. PATIENT AT MOD/SEVERE RISK FOR ASPIRATION OCCURRING DURING THE SWALLOW DUE TO DECREASED TIMING AND COORDINATION OF LARYNGEAL VESTIBULE CLOSURE. PATIENT AT MILD RISK FOR ASPIRATION AFTER THE SWALLOW DUE TO RESIDUE REMAINING IN ORAL CAVITY, BASE OF TONGUE, VALLECULAE, AND PHARYNGEAL RECESSES 8-Point Penetration-Aspiration Scale (Rosenbek) 1.Material does not enter airway Yes 2.Material enters the airway,remains Yes above the vocal folds and IS ejected from the airway 8.Material enters the airway,passes Yes below the vocal folds and NO effort is made to eject. Method of presentation Teaspoon,Straw Comment: NECTAR, THIN HONEY, AND HONEY RESULTED IN #2. NECTAR VIA STRAW, #8 PUDDING AND PASTE ON COOKIE, # 1. Residue/Retention Residue Observed Valleculae Right,Valleculae Left,Tongue Base,Pharyngeal Wall Esophageal Function No Impairment (WFL),Cervical Osteophytes Other UNABLE TO FULLY ASSESS ESOPHAGEAL FUNCTION DURING THIS MBS STUDY DUE TO MOVEMENT LIMITATIONS OF EQUIPMENT UTILIZED. PATIENT DOES PRESENT WITH A CERVICAL OSTEOPHYTE AT LEVEL OF C5-6 WHICH DOES NOT INTERFERE WITH BOLUS MOVEMENT. Assessment of Swallow Phases Oral Phase Labial Closure No Impairment (WFL) Bolus Formation Yes Bolus Control Pooling L/R No Impairment (WFL) Bolus Control under Tongue No Impairment (WFL) Bolus Control Scattered Loss No Impairment (WFL) Mastication Effectiveness No Impairment (WFL) A/P Bolus Propulsion No Impairment (WFL) Premature Spillage into: Laryngeal Vestibule,Pyriform Sinuses,Valleculae A/P Lingual Propulsion Delay No Impairment (WFL) Lingual Movement No Impairment (WFL) Residue Clearing/Sensitivity Mild Impairment Aspiration No Swallow Initiation Delay Mild Impairment Swallow Delay Time (sec) 1-2 Other Oral Phase Observations ASPIRATION OCCURRED DURING PHARYNGEAL PHASE OF SWALLOW. SEE NEXT COMMENT. PATIENT WITH PREMATURE SPILLAGE TO VALLECULAE WITH PUDDING THICK, PUREED, AND PASTE ON A COOKIE CONSISTENCIES. PREMATURE SPILLAGE TO VALLECULAE, PHARYNGEAL RECESSES, AND LARYNGEAL VESTIBULE WITH THIN HONEY, AND THICK HONEY CONSISTENCY BARIUM. PREMATURE SPILLAGE TO VALLECULAE, PYRIFORM SINUSES, PHARYNGEAL RECESSES, LARYNGEAL VESTIBULE, AND TO LEVEL OF CRICOPHARYNGEUS WITH NECTAR THICK LIQUID BARIUM PRESENTED VIA STRAW. DURING PASTE ON A COOKIE, PUREED WITH BARIUM PASTE, AND PUDDING THICK BARIUM TRIALS, PATIENT DEMONSTRATED COMPLETE BOLUS ROLLOVER TO VALLECULAE THEN SWALLOW INITIATED FOR CLEARING. Pharyngeal Phase Base of Tongue Retraction No Impairment (WFL) Epiglottic Coverage No Impairment (WFL) Laryngeal Elevation No Impairment (WFL) Reduced Anterior Laryngeal Movement No Laryngeal Closure Mild Impairment Vallecular Retention Clearing Mild Impairment Pharyn. Wall Residue Clearing Minimal Impairment Pyriform Sinus Retention Minimal Impairment Penetration Yes Aspiration Yes Cricopharyngeal Dysfunction No Cough Cued Other Pharyngeal Phase Observation PATIENT WITH DECREASED BOLUS CONTROL WITH NECTAR THICK CONSISTENCY PRESENTED VIA STRAW WITH ASPIRATION OCCURRING AFTER SWALLOW INITIATED. TRACE PENETRATION OCCURRED PRIOR TO SWALLOW INITIATION. PATIENT WITH TRACE RESIDUE REMAINING IN ORAL CAVITY AND LARYNGEAL/ PHARYNGEAL RECESSES AFTER SWALLOW COMPLETED. PATIENT REQUIRED ASSIST TO CLEAR RESIDUE FROM ORAL CAVITY IT MIXED WITH SALIVA AND HE BEGAN TALKING. Clinical Interpretation Clinical Interpretation PATIENT WITH MODERATE ORAL- PHARYNGEAL DYSPHAGIA WITH ASPIRATION. Speech Therapy Teaching Record Teaching Summary Results/Recommendations Learning Preferences Discussion Barriers to Learning Reading skills,Cognitive/ Verbal,Cognitive/Written Readiness for Learning Accepting Teaching Methods Discussion,Audiovisual Teaching Recipient Patient Response to Teaching Verbalize understanding, Reinforcement needed ST Recommendations Diet Consistency Regular Comment CARB CONTROLLED, REGULAR CONSISTENCY Liquid Consistency Pudding Comment RECOMMEND CONTINUE WITH USE OF PUDDING THICK LIQUIDS TO DECREASE RISK OF ASPIRATION, GIVEN PATIENT WITH HX OF RECURRENT ASPIRATION PNEUMONIA . Follow-Up Primary Physician regarding findings/ Yes recommendations Safe Swallow Compensatory Strategies Compensatory Strategies Upright Position for all meals ,Remain upright after meals, Small bites and drinks,Dry swallows,Alternate solids/ liquids,Thicken Liquids (see consistency above) Medication Instructions Per Patient Preference Staff/Family Suggestions Reinforce Treatment Program Additional Comments: PATIENT PLEASANT AND COOPERATIVE THROUGHOUT MBS STUDY. Signatures Speech Therapist Signature ARNOLD, MS, CCC/[employer] W[employer]ER Physician Signature DR Olegario SIM, RADIOLOGIST Initialized on 06/04/23 17:37 - END OF NOTE 06/04/23 13:25 Physical Therapy Note by Blas(L#[id number])Elli PT. WAS SEEN BY P.TWilfred THIS A.M. PT .UP IN BEDSIDE RECLINER UPON P.T. ARRIVAL TO ROOM. REPORTS HE DID NOT SLEEP WELL LAST NIGHT D/T INCREASED LBP AFTER SLEEPING IN HOSPITAL BED. PT. AGREEABLE TO P.T. PERFORMED SIT TO STAND W/ SBAPT. CONT. ON 2 L O2. O2 SATS 95% ON 2 L AT REST. PERFORMED LE EX'S IN SITTING OF LAQS, MARCHES, HEEL SLIDES, AND SLRS W/ FREQUENT V.C. TO BREATHE PROPERLY. . PT. NOT ON O2 DURING DAY AT HOME; USES 2 L O2 AT NIGHT. STARTED OFF WALKING ON RA AND PT. O2 SATS DROPPED TO 88% AFTER WALKING ABOUT 40'. PUT PT. BACK ON 2L TO FINISH WALK. AMBULATED 120' W/ RW AND SBA. LESS LATERAL DEVIATION NOTED W/ GAIT TODAY. WILL CONT. P.T. 5X/WK UNTIL D/C TO INCREASE STRENGTH AND FUNCTIONAL ENDURANCE. Initialized on 06/04/23 13:25 - END OF NOTE 06/04/23 11:47 Case Management Note by Nadege Brand S/W SISTER CARTER- NO CHANGE IN DC PLANS AT THIS TIME. PATIENT TO RETURN HOME WITH SISTER PHYSICAL THERAPY REPORTED ANKLE SORE LIKELY FROM SHOES RUBBING- S/W CARTER- SHE IS AWARE AND HAS PLANS TO GET PATIENT AN APPOINTMENT FOR NEW SHOES ONCE HE IS FEELING BETTER. Initialized on 06/04/23 11:47 - END OF NOTE <RICK PORTILLO - Last Filed: 06/04/23 18:29> Assessment/Plan (1) Aspiration pneumonia Current Visit: No Status: Acute Code(s): J69.0 - PNEUMONITIS DUE TO INHALATION OF FOOD AND VOMIT (2) Tachycardia Current Visit: No Status: Acute Code(s): R00.0 - TACHYCARDIA, UNSPECIFIED (3) Diabetes type 2, uncontrolled Current Visit: No Status: Chronic Qualifiers: Glycemic state: with hyperglycemia Qualified Code(s): E11.65 - Type 2 diabetes mellitus with hyperglycemia Code(s): E11.65 - TYPE 2 DIABETES MELLITUS WITH HYPERGLYCEMIA (4) Hx of traumatic brain injury Current Visit: No Status: Chronic Assessment & Plan: (1) Aspiration pneumonia Current Visit: No Status: Acute Assessment & Plan: - BC, Sputum culture - O2 to keep > 92% - RT eval and treat - duonebs, albuterol - ceftriaxone, azithromycin - tussin for cough 06/03 - Budesonide added - 2LNC- baseline is 2 L @ noc only - WBC increased 15.8- trend - procal 0.080 - chest XR: Portable chest demonstrates new right mid to lower lung patchy airspace disease without consolidation/large effusion. Stable left base subsegmental atelectasis/scarring. Heart not enlarged. Bony thorax intact. 06/04 - modified barium swallow eval ordered - WBC improved - Continues to require 2LNC Code(s): J69.0 - PNEUMONITIS DUE TO INHALATION OF FOOD AND VOMIT (2) Tachycardia Current Visit: No Status: Acute Assessment & Plan: - Tele - 2:2 pneumonia - IVF Code(s): R00.0 - TACHYCARDIA, UNSPECIFIED (3) Diabetes type 2, uncontrolled Current Visit: No Status: Chronic Qualifiers: Glycemic state: with hyperglycemia Qualified Code(s): E11.65 - Type 2 diabetes mellitus with hyperglycemia Assessment & Plan: - S/S, lantus - 04/29/23 A1c 6.01 Code(s): E11.65 - TYPE 2 DIABETES MELLITUS WITH HYPERGLYCEMIA (4) Hx of traumatic brain injury Current Visit: No Status: Chronic Assessment & Plan: - chronic - adds complexity as pt sneaks liquids when need to only drink thickened liquids. VTE: lovenox Next of kin: sister D/C plan: 1-2 days Code status: SCO/DNR Code(s): Z87.820 - PERSONAL HISTORY OF TRAUMATIC BRAIN INJURY Code(s): Z87.820 - PERSONAL HISTORY OF TRAUMATIC BRAIN INJURY <CANELO TREVIÑO - Last Filed: 06/04/23 15:07> SAM Encounter - SAM Encounter Attestation SAM Encounter Attestation: "IhavepersonallyseenandexaminedMURJUDAH,HANS YAMILA andhavediscussed pertinent aspects of their care with Canelo Loomis agree with the history, physical exam (any modifications based on my personal exam will be noted below), assessment, and plan as outlined in original note. Please see immediately below for my summary of findings and additional assessment and plan along with any meaningful corrections/explanations to the Subjective/Objective portions of the SAM note will be noted." My portion of the encounter took place via telemedicine. -Patient feels better today. On 2L nasal oxygen. Admits to not following speech therapy recommendations. Last MBS was 2 years ago, would repeat one at this time. <RICK PORTILLO - Last Filed: 06/04/23 18:29>
[2023-06-04] MEDS: Sodium Chloride 3 ML UD NEBULES IH SCH (16:55)
[2023-06-04] MEDS: Flomax 0.4 MG PO SCH (21:09)
[2023-06-04] MEDS: ZOCOR 20MG PO SCH (21:11)
[2023-06-04] MEDS: HUMALOG SQ PRN (21:11)
[2023-06-05 05:17] LABS: Hematocrit 35.4 % (42-50); Hemoglobin 11.1 g/dL (12.5-18.0); Mean Cell Volume 88.9 fL (78-100); Mean Corpuscular Hemoglobin 27.9 pg (26-32); Mean Corpuscular Hgb Concent. 31.4 g/dL (32-36); Mean Platelet Volume 10.4 fL (7.5-11.0); Platelet Count 187 x10^3/uL (150-450); Red Blood Count 3.98 x10^6/uL (4.1-5.6); Red Cell Distribution Width 16.8 % (11.5-14.0); White Blood Count 11.7 x10^3/uL (4.0-10.5)
[2023-06-05 05:27] LABS: ALBUMIN 3.6 g/dL (3.5-5.0); ANION GAP 14.2 MEQ/L (5-15); BILIRUBIN,TOTAL 0.2 mg/dL (0.2-1.3); Calcium 9.5 mg/dL (8.4-10.2); Creatinine 1 0.63 mg/dL (0.66-1.25); EST GLOMERULAR FILTRATION RATE 104.9 ML/MIN; Potassium 3.5 mmol/L (3.5-5.1); Total Protein 6.5 g/dL (6.3-8.2)
[2023-06-05] MEDS: DUONEB 0.5-3 MG/3 ml Neb IH SCH ×2 (06:59→11:32)
[2023-06-05] MEDS: PULMICORT 0.5 MG/2 ML RESPULES IH SCH (07:00)
[2023-06-05] MEDS: Spiriva 18 Mcg/Cap Inhaler IH SCH (07:02)
[2023-06-05] MEDS: Protonix 40MG Tablet PO SCH (07:42)
[2023-06-05] MEDS: MYSOLINE 50MG PO SCH (09:11)
[2023-06-05] MEDS: ECOTRIN 81 MG PO SCH (09:11)
[2023-06-05] MEDS: Ditropan XL 5 MG PO SCH (09:11)
[2023-06-05] MEDS: ROCEPHIN 1 Gm-D5w 50 ml Bag** 1 G/50 ML IVPB IV SCH (09:11)
[2023-06-05] MEDS: ENOXAPARIN SODIUM SQ SCH (09:11)
[2023-06-05] MEDS: Docusate Sodium 100 MG PO SCH (09:11)
[2023-06-05] MEDS: Cymbalta 30 MG Capsule PO SCH (09:11)
[2023-06-05] MEDS: NEURONTIN PO SCH (09:11)
[2023-06-05] MEDS: CLARITIN 10 MG PO SCH (09:12)
[2023-06-05] MEDS: Calcium 500MG W/Vit D Tablet PO SCH (09:12)
[2023-06-05] MEDS: TYLENOL EXTRA STRENGTH 500 MG PO SCH (09:12)
[2023-06-05] MEDS: VITAMIN D PO SCH (09:12)
[2023-06-05] MEDS: THEOPHYLLINE ER 24HR PO SCH (09:12)
[2023-06-05] MEDS: Wellbutrin XL 150 MG PO SCH (09:12)
[2023-06-05] MEDS: Lantus Insulin SQ SCH (09:13)
[2023-06-05] MEDS: JARDIANCE PO SCH (09:13)
[2023-06-05] MEDS: Zithromax 500 MG/ 250 ML NaCl Premix 500 MG/250 ML IVPB IV SCH (10:00)
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
[2023-06-05 11:28] VITALS: BP 134/63; TEMP 98.6; O2SAT 94
[2023-06-05 11:34] VITALS: PULSE 85; RESP 16
[2023-06-05] MEDS: HUMALOG SQ PRN (12:28)
== END 2023-06-05 13:13 | disposition home or self-care (01) | DRG 178 ==
LOC: ED 12:15 → MED SURG 15:25 → OBSVTOIN 06-03 10:10
PROVIDERS: ADMIT Internal Medicine; ATTEND Internal Medicine
DX: J69.0 Pneumonitis due to inhalation of food and vomit (principal); J44.1 Chronic obstructive pulmonary disease with (acute) exacerbation; G40.909 Epilepsy, unspecified, not intractable, without status epilepticus; G62.9 Polyneuropathy, unspecified; E78.5 Hyperlipidemia, unspecified; E11.65 Type 2 diabetes mellitus with hyperglycemia; R00.0 Tachycardia, unspecified; Z79.899 Other long term (current) drug therapy; Z20.828 Contact with and (suspected) exposure to other viral communicable diseases; Z87.820 Personal history of traumatic brain injury
CPT/HCPCS: 0241U; 36415; 71045; 74230; 80053; 80198; 81001; 82947; 83605; 84145; 85025; 85027; 85610; 87040; 92611; 93005; 93268; 94640; 94762; 97110; 97161; 99284; G0378; Q3014; J0456; J0696; J1650; J1817; A9270-GY

== ENCOUNTER 2023-08-08 16:27 | Emergency (ER) | payer MEDICARE ==
[2023-08-08 16:35] VITALS: TEMP 99.6
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
[2023-08-08] MEDS ORDERED: Sodium Chloride 0.9% 1000 ML 1,000 ML IV SCH (16:45)
[2023-08-08] MEDS ORDERED: Sodium Chloride 0.9% 1000 ML 1,000 ML ONE (16:54)
[2023-08-08 17:04] LABS: Hematocrit 40.9 % (42-50); Hemoglobin 13.3 g/dL (12.5-18.0); Mean Cell Volume 88.7 fL (78-100); Mean Corpuscular Hemoglobin 28.9 pg (26-32); Mean Corpuscular Hgb Concent. 32.5 g/dL (32-36); Mean Platelet Volume 11.1 fL (7.5-11.0); Platelet Count 156 x10^3/uL (150-450); Red Blood Count 4.61 x10^6/uL (4.1-5.6); Red Cell Distribution Width 14.6 % (11.5-14.0); White Blood Count 14.3 x10^3/uL (4.0-10.5)
[2023-08-08 17:19] LABS: ALBUMIN 4.1 g/dL (3.5-5.0); BILIRUBIN,TOTAL 0.5 mg/dL (0.2-1.3); Calcium 9.7 mg/dL (8.4-10.2); Creatinine 1 0.7 mg/dL (0.66-1.25); EST GLOMERULAR FILTRATION RATE 101.6 ML/MIN; Potassium 4.1 mmol/L (3.5-5.1)
[2023-08-08 17:44] LABS: ATYPICAL LYMPHS 4 %; Eosinophil 3 % (0.00-3.0); Lymphocytes 36 % (24-44); Monocyte 2 % (0.0-12.0); Neutrophils 55 % (36.-66.); Total Cells Counted 100
[2023-08-08 17:45] LABS: ANISOCYTOSIS 1+; Platelet Estimate NORMAL (NORMAL)
[2023-08-08 17:57] LABS: INFLUENZA A NEGATIVE (NEGATIVE); INFLUENZA B NEGATIVE (NEGATIVE); SARS-CoV-2 Xpert Express NEGATIVE (NEGATIVE)
[2023-08-08 18:14] LABS: RESPIRATORY SYNCTIAL VIRUS POSITIVE (NEGATIVE)
[2023-08-08 18:49] VITALS: BP 123/77; PULSE 108; RESP 22; O2SAT 95
--- NOTE | 2023-08-08 22:46 | XRAY ---
Indication: Short of breath. Comparison: June 02, 2023 Portable apical lordotic chest demonstrates clearing previous right mid to lower lung infiltrate/atelectasis with minimal right infrahilar residual. Stable left base discoid atelectasis/scarring. Remaining heart and upper lungs unremarkable. No new/acute findings..
== END 2023-08-08 19:10 | disposition home or self-care (01) ==
LOC: ED 16:27
DX: J20.5 Acute bronchitis due to respiratory syncytial virus (principal); B27.90 Infectious mononucleosis, unspecified without complication; R50.9 Fever, unspecified; R06.02 Shortness of breath; E11.42 Type 2 diabetes mellitus with diabetic polyneuropathy; E78.5 Hyperlipidemia, unspecified; Z79.84 Long term (current) use of oral hypoglycemic drugs; Z79.4 Long term (current) use of insulin; Z79.85 Long-term (current) use of injectable non-insulin antidiabetic drugs; Z79.899 Other long term (current) drug therapy
CPT/HCPCS: 0241U; 36000; 36415; 71045; 80053; 83880; 84484; 85025; 86308; 87040; 93005; 93041; 94760; 99284

== ENCOUNTER 2023-08-10 21:20 | Observation (INO) | payer MEDICARE ==
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
[2023-08-10] MEDS ORDERED: Sodium Chloride 0.9% 1000 ML 1,000 ML IV SCH (21:30)
[2023-08-10] MEDS ORDERED: DUONEB 0.5-3 MG/3 ml Neb IH ONE ×2 (21:30→21:38)
[2023-08-10] MEDS ORDERED: solu-MEDROL 125 MG, Sterile H2O 10 ml 2 ML IV ONE ×2 (21:30)
[2023-08-10 21:56] LABS: Hematocrit 38.9 % (42-50); Hemoglobin 12.4 g/dL (12.5-18.0); Mean Cell Volume 89.8 fL (78-100); Mean Corpuscular Hemoglobin 28.6 pg (26-32); Mean Corpuscular Hgb Concent. 31.9 g/dL (32-36); Mean Platelet Volume 10.4 fL (7.5-11.0); Platelet Count 165 x10^3/uL (150-450); Red Blood Count 4.33 x10^6/uL (4.1-5.6); Red Cell Distribution Width 14.6 % (11.5-14.0); White Blood Count 14.9 x10^3/uL (4.0-10.5)
[2023-08-10] MEDS ORDERED: Sodium Chloride 0.9% 1000 ML 1,000 ML ONE (22:00)
[2023-08-10 22:14] LABS: ALBUMIN 4.1 g/dL (3.5-5.0); ANION GAP 12.1 MEQ/L (5-15); BILIRUBIN,TOTAL 0.5 mg/dL (0.2-1.3); Creatinine 1 0.82 mg/dL (0.66-1.25); EST GLOMERULAR FILTRATION RATE 96.9 ML/MIN; Potassium 3.5 mmol/L (3.5-5.1); Total Protein 7.4 g/dL (6.3-8.2)
[2023-08-10 22:18] LABS: Appearance Clear (Clear); Bacteria None Seen /HPF (None Seen); Bilirubin Negative (Negative); Blood Negative (Negative); Epithelial Cells None Seen /HPF (None Seen); Glucose, Urine >=1000 mg/dL (Negative); Hyaline Casts NONE SEEN /LPF (0-2); Ketones Trace (Negative); Leukocyte Esterase Negative (Negative); Nitrite Negative (Negative); Protein,Urine Dip 30 (Negative); RBC 0-2 /HPF (0-5); Specific Gravity >=1.030 (1.005-1.030)
[2023-08-10 22:19] LABS: ADD URINE CULTURE? NO (NO)
[2023-08-10 22:33] LABS: INFLUENZA A NEGATIVE (NEGATIVE); INFLUENZA B NEGATIVE (NEGATIVE); SARS-CoV-2 Xpert Express NEGATIVE (NEGATIVE)
[2023-08-10 22:37] LABS: RESPIRATORY SYNCTIAL VIRUS POSITIVE (NEGATIVE)
[2023-08-10 23:21] LABS: ATYPICAL LYMPHS 3 %; Lymphocytes 29 % (24-44); Monocyte 5 % (0.0-12.0); Neutrophils 63 % (36.-66.); Platelet Estimate NORMAL (NORMAL); Total Cells Counted 100
[2023-08-10 23:22] LABS: ANISOCYTOSIS 1+
--- NOTE | 2023-08-11 00:18 | XRAY ---
CLINICAL HISTORY:short of breath with d dimer up COMPARISON:CT chest 04/08/2023 and 03/31/2023 TECHNIQUE:Contiguous axial CT images of the chest were acquired with contrast. Coronal and sagittal reconstructions were obtained. FINDINGS: No definite evidence of pulmonary thromboembolism. The main pulmonary artery, right and left pulmonary arteries, and segmental branches appear normal in contrast to opacification. Interval development of multifocal areas of ground-glass haziness in bronchovascular distribution in both upper lobes, more so on the right side with few focal areas of haziness in the right lower lobe and superior segment of the left lower lobe. Interval development of clustered patchy areas of consolidation with ground-glass haziness in basal segments of the left lower lobe The linear fibrotic bands are noted in bilateral lower lobes and the right middle lobe of lung fuentes are still seen with a stationary course. Few air blebs are seen in the right upper lobe and the newly detected posterior segment of both lower lobes are seen. Few subcentimetric mediastinal and bilateral hilar nodes noted. The enlarged axillary lymph nodes are still seen with no time interval changes. Calcification is noted in the coronary vessels. Heart size is normal, and there is no pericardial effusion. There is no definite mass lesion in the chest wall. Degenerative changes are seen in the visualized spine no other bony abnormality is detected. The rest of the scanned upper abdomen is unremarkable. IMPRESSION: 1. No definite evidence of acute pulmonary thromboembolism. 2. Interval development of multifocal areas of ground-glass haziness in bronchovascular distribution in both upper lobes with clustered patchy areas of consolidation with ground-glass haziness in basal segments of left lower lobe, primary consideration is pneumonia. COVID-19 infection needs to be ruled out 3. The rest of the findings as detailed above. Electronically Signed by: Carlos Enrique Heller MD. (08/11/2023 00:14:28 EST)
[2023-08-11] MEDS ORDERED: Zithromax 500 MG/ 250 ML NaCl Premix 500 MG/250 ML IVPB IV STA (01:26)
[2023-08-11] MEDS ORDERED: Zithromax 500 MG/ 250 ML NaCl Premix 500 MG/250 ML IVPB IV ONE (01:28)
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
[2023-08-11] MEDS ORDERED: HUMULIN R SQ PRN (02:00)
[2023-08-11] MEDS ORDERED: TYLENOL 325 MG PO PRN (02:00)
[2023-08-11] MEDS ORDERED: Docusate Sodium 100 MG PO PRN (02:00)
[2023-08-11] MEDS ORDERED: Sodium Chloride 0.9% 1000 ML 1,000 ML IV SCH (02:15)
[2023-08-11 05:13] LABS: Hemoglobin 11.3 g/dL (12.5-18.0); Mean Cell Volume 91.6 fL (78-100); Mean Corpuscular Hgb Concent. 30.5 g/dL (32-36); Platelet Count 164 x10^3/uL (150-450); Red Blood Count 4.04 x10^6/uL (4.1-5.6); Red Cell Distribution Width 14.7 % (11.5-14.0); White Blood Count 17.7 x10^3/uL (4.0-10.5)
[2023-08-11 05:41] LABS: ANION GAP 13.9 MEQ/L (5-15); Calcium 9.7 mg/dL (8.4-10.2); Creatinine 1 0.67 mg/dL (0.66-1.25); Potassium 3.9 mmol/L (3.5-5.1)
[2023-08-11] MEDS: DUONEB 0.5-3 MG/3 ml Neb IH SCH ×3 (07:05→19:33)
[2023-08-11 07:22] LABS: BAND 2 % (0.0-2.0); Lymphocytes 31 % (24-44); Monocyte 3 % (0.0-12.0); Neutrophils 64 % (36.-66.); Platelet Estimate NORMAL (NORMAL); Total Cells Counted 100
[2023-08-11] MEDS: HUMALOG SQ PRN ×4 (08:46→21:29)
--- NOTE | 2023-08-11 08:47 | XRAY ---
Indication: Short of breath. Comparison: June 08, 2024 Portable chest demonstrates redeveloping diffuse right lung groundglass airspace disease and worsening left base infiltrate/atelectasis. No large effusion. Heart not enlarged.
[2023-08-11] MEDS ORDERED: MEDICATION INTERVENTION MC SCH ×3 (09:15)
[2023-08-11] MEDS: ENOXAPARIN SODIUM SQ SCH (09:31)
[2023-08-11] MEDS: CLARITIN 10 MG PO SCH (09:32)
[2023-08-11] MEDS: THEOPHYLLINE ER 24HR PO SCH ×2 (09:32→21:34)
[2023-08-11] MEDS: Calcium 500MG W/Vit D Tablet PO SCH (09:32)
[2023-08-11] MEDS: THERAGRAN MULTIVITAMIN PO SCH (09:32)
[2023-08-11] MEDS: NEURONTIN PO SCH ×3 (09:32→21:34)
[2023-08-11] MEDS: ECOTRIN 81 MG PO SCH (09:32)
[2023-08-11] MEDS: JARDIANCE PO SCH (09:32)
[2023-08-11] MEDS: TYLENOL EXTRA STRENGTH 500 MG PO SCH ×3 (09:32→21:34)
[2023-08-11] MEDS: Wellbutrin XL 150 MG PO SCH (09:32)
[2023-08-11] MEDS: Ditropan XL 5 MG PO SCH (09:32)
[2023-08-11] MEDS: MYSOLINE 50MG PO SCH ×3 (09:33→21:32)
[2023-08-11] MEDS: Pepcid 20 MG PO SCH ×2 (09:34→21:34)
[2023-08-11] MEDS: Cymbalta 30 MG Capsule PO SCH ×2 (09:34→21:33)
[2023-08-11] MEDS: Lantus Insulin SQ SCH (09:34)
[2023-08-11] MEDS: VITAMIN D PO SCH (09:34)
[2023-08-11] MEDS: Docusate Sodium 100 MG PO SCH ×2 (09:34→21:33)
[2023-08-11] MEDS: Miralax Powder 17GM PACKET PO SCH (09:41)
[2023-08-11] MEDS ORDERED: NON-FORMULARY ITEM (Cholecalciferol (Vitamin D3) [Vitamin D3] 25 MCG Capsule) PO SCH (10:00)
[2023-08-11] MEDS ORDERED: [UNRECOGNIZED DRUG - OTHER] IH SCH (10:00)
[2023-08-11] MEDS ORDERED: ACETYLCYSTEINE 200 MG/ML IH SCH (10:00)
[2023-08-11] MEDS ORDERED: DEXTROMETHORPHAN HBR 15 MG PO SCH (10:00)
[2023-08-11] MEDS ORDERED: VENTOLIN COMMON CANISTER IH SCH (10:00)
[2023-08-11] MEDS ORDERED: [UNRECOGNIZED DRUG - OTHER] PO SCH (10:00)
[2023-08-11] MEDS ORDERED: NON-FORMULARY ITEM (Albuterol Sulfate [Proair Digihaler] 90 MCG Aer.Pw.Bas) IH SCH (10:00)
[2023-08-11] MEDS ORDERED: ALGAL OIL PO SCH (10:00)
[2023-08-11] MEDS ORDERED: ALBUTEROL SULFATE 0.63 MG/3 ML IH SCH (10:00)
[2023-08-11] MEDS ORDERED: LEVOMEFOLATE PO SCH (10:00)
[2023-08-11] MEDS ORDERED: ACARBOSE 50 MG PO SCH (10:00)
[2023-08-11] MEDS ORDERED: Spiriva 18 Mcg/Cap Inhaler IH SCH (10:00)
[2023-08-11] MEDS ORDERED: [UNRECOGNIZED DRUG - OTHER] PO SCH (11:30)
[2023-08-11] MEDS: Mucomyst 200 MG/ML IH SCH ×2 (13:01→19:33)
--- NOTE | 2023-08-11 13:04 | PCM.NOTE ---
Date and Time: 08/11/23 4443 Subjective Assessment: Mr. 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 D -dimer was slightly elevated. He was sent for CT scan that came back negative for PE but some ground glass haziness, and was treated with nebulizers and supplemental oxygen with improvement in his saturation. Initial labs were notable for an elevated WBC of 14.9k, though no fever or chills noted. Given his low O2 sats without supplementation and recent RSV diagnosis, he was recommended for admission. He is seen in the ER, where he is resting in bed comfortably, in no acute distress. He is hemodynamically stable and maintaining good oxygen levels. His baseline oxygen is 2LNC, he is currently on 4LNC. Lung sounds are course today. He is on chronic thickened liquids due to hx of aspiration. Continue antibiotics and duonebs. He denies any further concerns at this time. - Review of Systems Constitutional: No Fever, No Chills Eyes: No Symptoms Ears, Nose, & Throat: No Symptoms Respiratory: Cough, No Short Of Breath Cardiac: No Chest Pain, No Edema, No Syncope Abdominal/Gastrointestinal: No Abdominal Pain, No Nausea, No Vomiting, No Diarrhea Genitourinary Symptoms: No Dysuria Musculoskeletal: No Back Pain, No Neck Pain Skin: No Rash Neurological: No Dizziness, No Focal Weakness, No Sensory Changes Psychological: No Symptoms Endocrine: No Symptoms Hematologic/Lymphatic: No Symptoms Immunological/Allergic: No Symptoms Objective Exam General Appearance: no apparent distress, alert Neurologic Exam: alert, oriented x 3, cooperative, normal mood/affect, nml cerebellar function, sensation nml, No motor deficits Skin Exam: normal color, warm, dry Eye Exam: PERRL, EOMI, eyes nml inspection Ears, Nose, Throat Exam: normal ENT inspection, pharynx normal, moist mucous membranes Neck Exam: normal inspection, non-tender, supple, full range of motion Respiratory Exam: crackles/rales (throughout), No respiratory distress Cardiovascular Exam: regular rate/rhythm, normal heart sounds Gastrointestinal/Abdomen Exam: soft, No tenderness, No mass Extremity Exam: normal inspection, normal range of motion Back Exam: normal inspection, normal range of motion, No CVA tenderness, No vertebral tenderness Male Genitalia Exam: deferred Rectal Exam: deferred OBJECTIVE DATA Vital Signs: Vital Signs - 24 hr Temp Pulse Resp BP BP Pulse Ox 08/11/23 12:00 98.0 F 82 17 151/58 100 08/11/23 07:29 97.0 F 77 20 119/59 94 L 08/11/23 07:11 77 20 94 L 08/11/23 03:00 94 L 08/11/23 02:18 89 17 08/11/23 02:17 97.3 F 90 20 129/69 92 L 08/11/23 02:16 86 20 92 L 08/11/23 01:30 89 L 08/11/23 01:30 89 18 123/72 96 08/11/23 01:00 91 H 21 129/71 97 08/11/23 00:30 95 H 17 115/68 94 L 08/11/23 00:00 96 H 20 116/71 92 L 08/10/23 23:43 86 18 129/67 92 L 08/10/23 23:00 98 H 20 139/66 96 08/10/23 22:30 101 H 23 152/72 94 L 08/10/23 22:14 104 H 18 96 08/10/23 22:00 105 H 23 142/75 93 L 08/10/23 21:30 106 H 28 H 133/67 92 L 08/10/23 21:29 99.7 F 102 H 23 131/69 98 08/10/23 21:18 105 H 25 H 131/69 94 L Pain Assessment - Last Documented Pain Intensity 0 Pain Scale Used 0-10 Pain Scale Intake and Output: Intake & Output 08/09/23 08/10/23 08/11/23 08/12/23 11:59 11:59 11:59 11:59 Intake Total 500 Output Total 1000 Balance -500 Weight 72.3 kg Lab Results: Lab Results-Last 24 Hours 08/10/23 08/10/23 08/10/23 Range/Units 21:30 21:53 21:53 WBC 14.9 H (4.0-10.5) x10^3/uL RBC 4.33 (4.1-5.6) x10^6/uL Hgb 12.4 L (12.5-18.0) g/dL Hct 38.9 L (42-50) % MCV 89.8 (78-100) fL MCH 28.6 (26-32) pg MCHC 31.9 L (32-36) g/dL RDW 14.6 H (11.5-14.0) % Plt Count 165 (150-450) x10^3/uL MPV 10.4 (7.5-11.0) fL Segmented Neutrophils 63 (36.-66.) % Band Neutrophils (0.0-2.0) % Lymphocytes (Manual) 29 (24-44) % Monocytes (Manual) 5 (0.0-12.0) % Atypical Lymphocytes 3 % Platelet Estimate NORMAL (NORMAL) RBC Morphology ABNORMAL Anisocytosis 1+ D-Dimer (0.0-0.50) mg/L Sodium 138 (137-145) mmol/L Potassium 3.5 (3.5-5.1) mmol/L Chloride 104 (98-107) mmol/L Carbon Dioxide 26 (22-30) mmol/L Anion Gap 12.1 (5-15) MEQ/L BUN 17 (9-20) mg/dL Creatinine 0.82 (0.66-1.25) mg/dL Estimated GFR 96.9 ML/MIN Glucose 184 H (74-106) mg/dL POC Glucometer (74 to 106) mg/dL Lactic Acid 0.8 (0.4-2.0) Calcium 10.0 (8.4-10.2) mg/dL Total Bilirubin 0.50 (0.2-1.3) mg/dL AST 36 (17-59) U/L ALT 31 (0-50) U/L Alkaline Phosphatase 57 (38-126) U/L Troponin I (0.000-0.034) ng/mL NT-Pro-B Natriuret Pep (<300) pg/mL Serum Total Protein 7.4 (6.3-8.2) g/dL Albumin 4.1 (3.5-5.0) g/dL Urine Color (Yellow) Urine Appearance (Clear) Urine pH (4.6-8.0) Ur Specific M[place]hon (1.005-1.030) Urine Protein (Negative) Urine Glucose (UA) (Negative) mg/dL Urine Ketones (Negative) Urine Blood (Negative) Urine Nitrite (Negative) Urine Bilirubin (Negative) Urine Urobilinogen (0.2) mg/dL Ur Leukocyte Esterase (Negative) U Hyaline Cast (Auto) (0-2) /LPF Urine Microscopic RBC (0-5) /HPF Urine Microscopic WBC (0-5) /HPF Ur Epithelial Cells (None Seen) /HPF Urine Bacteria (None Seen) /HPF Urine Culture Reflexed (NO) Influenza Type A Ag (NEGATIVE) Influenza Type B Ag (NEGATIVE) RSV (PCR) (NEGATIVE) SARS-CoV-2 (PCR) (NEGATIVE) Group A Strep Antibody (NEGATIVE) 08/10/23 08/10/23 08/10/23 Range/Units 21:53 21:53 21:53 WBC (4.0-10.5) x10^3/uL RBC (4.1-5.6) x10^6/uL Hgb (12.5-18.0) g/dL Hct (42-50) % MCV (78-100) fL MCH (26-32) pg MCHC (32-36) g/dL RDW (11.5-14.0) % Plt Count (150-450) x10^3/uL MPV (7.5-11.0) fL Segmented Neutrophils (36.-66.) % Band Neutrophils (0.0-2.0) % Lymphocytes (Manual) (24-44) % Monocytes (Manual) (0.0-12.0) % Atypical Lymphocytes % Platelet Estimate (NORMAL) RBC Morphology Anisocytosis D-Dimer 0.74 H* (0.0-0.50) mg/L Sodium (137-145) mmol/L Potassium (3.5-5.1) mmol/L Chloride (98-107) mmol/L Carbon Dioxide (22-30) mmol/L Anion Gap (5-15) MEQ/L BUN (9-20) mg/dL Creatinine (0.66-1.25) mg/dL Estimated GFR ML/MIN Glucose (74-106) mg/dL POC Glucometer (74 to 106) mg/dL Lactic Acid (0.4-2.0) Calcium (8.4-10.2) mg/dL Total Bilirubin (0.2-1.3) mg/dL AST (17-59) U/L ALT (0-50) U/L Alkaline Phosphatase (38-126) U/L Troponin I < 0.012 (0.000-0.034) ng/mL NT-Pro-B Natriuret Pep 121 (<300) pg/mL Serum Total Protein (6.3-8.2) g/dL Albumin (3.5-5.0) g/dL Urine Color (Yellow) Urine Appearance (Clear) Urine pH (4.6-8.0) Ur Specific M[place]hon (1.005-1.030) Urine Protein (Negative) Urine Glucose (UA) (Negative) mg/dL Urine Ketones (Negative) Urine Blood (Negative) Urine Nitrite (Negative) Urine Bilirubin (Negative) Urine Urobilinogen (0.2) mg/dL Ur Leukocyte Esterase (Negative) U Hyaline Cast (Auto) (0-2) /LPF Urine Microscopic RBC (0-5) /HPF Urine Microscopic WBC (0-5) /HPF Ur Epithelial Cells (None Seen) /HPF Urine Bacteria (None Seen) /HPF Urine Culture Reflexed (NO) Influenza Type A Ag (NEGATIVE) Influenza Type B Ag (NEGATIVE) RSV (PCR) (NEGATIVE) SARS-CoV-2 (PCR) (NEGATIVE) Group A Strep Antibody (NEGATIVE) 08/10/23 08/10/23 08/10/23 Range/Units 21:53 21:53 21:58 WBC (4.0-10.5) x10^3/uL RBC (4.1-5.6) x10^6/uL Hgb (12.5-18.0) g/dL Hct (42-50) % MCV (78-100) fL MCH (26-32) pg MCHC (32-36) g/dL RDW (11.5-14.0) % Plt Count (150-450) x10^3/uL MPV (7.5-11.0) fL Segmented Neutrophils (36.-66.) % Band Neutrophils (0.0-2.0) % Lymphocytes (Manual) (24-44) % Monocytes (Manual) (0.0-12.0) % Atypical Lymphocytes % Platelet Estimate (NORMAL) RBC Morphology Anisocytosis D-Dimer (0.0-0.50) mg/L Sodium (137-145) mmol/L Potassium (3.5-5.1) mmol/L Chloride (98-107) mmol/L Carbon Dioxide (22-30) mmol/L Anion Gap (5-15) MEQ/L BUN (9-20) mg/dL Creatinine (0.66-1.25) mg/dL Estimated GFR ML/MIN Glucose (74-106) mg/dL POC Glucometer (74 to 106) mg/dL Lactic Acid (0.4-2.0) Calcium (8.4-10.2) mg/dL Total Bilirubin (0.2-1.3) mg/dL AST (17-59) U/L ALT (0-50) U/L Alkaline Phosphatase (38-126) U/L Troponin I (0.000-0.034) ng/mL NT-Pro-B Natriuret Pep (<300) pg/mL Serum Total Protein (6.3-8.2) g/dL Albumin (3.5-5.0) g/dL Urine Color Yellow (Yellow) Urine Appearance Clear (Clear) Urine pH 7.0 (4.6-8.0) Ur Specific M[place]hon >=1.030 A (1.005-1.030) Urine Protein 30 (Negative) Urine Glucose (UA) >=1000 A (Negative) mg/dL Urine Ketones Trace A (Negative) Urine Blood Negative (Negative) Urine Nitrite Negative (Negative) Urine Bilirubin Negative (Negative) Urine Urobilinogen 1.0 A (0.2) mg/dL Ur Leukocyte Esterase Negative (Negative) U Hyaline Cast (Auto) NONE SEEN (0-2) /LPF Urine Microscopic RBC 0-2 (0-5) /HPF Urine Microscopic WBC 3-5 (0-5) /HPF Ur Epithelial Cells None Seen (None Seen) /HPF Urine Bacteria None Seen (None Seen) /HPF Urine Culture Reflexed NO (NO) Influenza Type A Ag NEGATIVE (NEGATIVE) Influenza Type B Ag NEGATIVE (NEGATIVE) RSV (PCR) POSITIVE (NEGATIVE) SARS-CoV-2 (PCR) NEGATIVE (NEGATIVE) Group A Strep Antibody NOT DETECTED (NEGATIVE) 08/11/23 08/11/23 08/11/23 Range/Units 01:57 04:50 04:50 WBC 17.7 H (4.0-10.5) x10^3/uL RBC 4.04 L (4.1-5.6) x10^6/uL Hgb 11.3 L (12.5-18.0) g/dL Hct 37.0 L (42-50) % MCV 91.6 (78-100) fL MCH 28.0 (26-32) pg MCHC 30.5 L (32-36) g/dL RDW 14.7 H (11.5-14.0) % Plt Count 164 (150-450) x10^3/uL MPV 11.0 (7.5-11.0) fL Segmented Neutrophils 64 (36.-66.) % Band Neutrophils 2 (0.0-2.0) % Lymphocytes (Manual) 31 (24-44) % Monocytes (Manual) 3 (0.0-12.0) % Atypical Lymphocytes % Platelet Estimate NORMAL (NORMAL) RBC Morphology NORMAL Anisocytosis D-Dimer (0.0-0.50) mg/L Sodium (137-145) mmol/L Potassium (3.5-5.1) mmol/L Chloride (98-107) mmol/L Carbon Dioxide (22-30) mmol/L Anion Gap (5-15) MEQ/L BUN (9-20) mg/dL Creatinine (0.66-1.25) mg/dL Estimated GFR ML/MIN Glucose (74-106) mg/dL POC Glucometer (74 to 106) mg/dL Lactic Acid (0.4-2.0) Calcium (8.4-10.2) mg/dL Total Bilirubin (0.2-1.3) mg/dL AST (17-59) U/L ALT (0-50) U/L Alkaline Phosphatase (38-126) U/L Troponin I < 0.012 < 0.012 (0.000-0.034) ng/mL NT-Pro-B Natriuret Pep (<300) pg/mL Serum Total Protein (6.3-8.2) g/dL Albumin (3.5-5.0) g/dL Urine Color (Yellow) Urine Appearance (Clear) Urine pH (4.6-8.0) Ur Specific [place] (1.005-1.030) Urine Protein (Negative) Urine Glucose (UA) (Negative) mg/dL Urine Ketones (Negative) Urine Blood (Negative) Urine Nitrite (Negative) Urine Bilirubin (Negative) Urine Urobilinogen (0.2) mg/dL Ur Leukocyte Esterase (Negative) U Hyaline Cast (Auto) (0-2) /LPF Urine Microscopic RBC (0-5) /HPF Urine Microscopic WBC (0-5) /HPF Ur Epithelial Cells (None Seen) /HPF Urine Bacteria (None Seen) /HPF Urine Culture Reflexed (NO) Influenza Type A Ag (NEGATIVE) Influenza Type B Ag (NEGATIVE) RSV (PCR) (NEGATIVE) SARS-CoV-2 (PCR) (NEGATIVE) Group A Strep Antibody (NEGATIVE) 08/11/23 08/11/23 08/11/23 Range/Units 04:50 07:15 12:02 WBC (4.0-10.5) x10^3/uL RBC (4.1-5.6) x10^6/uL Hgb (12.5-18.0) g/dL Hct (42-50) % MCV (78-100) fL MCH (26-32) pg MCHC (32-36) g/dL RDW (11.5-14.0) % Plt Count (150-450) x10^3/uL MPV (7.5-11.0) fL Segmented Neutrophils (36.-66.) % Band Neutrophils (0.0-2.0) % Lymphocytes (Manual) (24-44) % Monocytes (Manual) (0.0-12.0) % Atypical Lymphocytes % Platelet Estimate (NORMAL) RBC Morphology Anisocytosis D-Dimer (0.0-0.50) mg/L Sodium 137 (137-145) mmol/L Potassium 3.9 (3.5-5.1) mmol/L Chloride 106 (98-107) mmol/L Carbon Dioxide 22 (22-30) mmol/L Anion Gap 13.9 (5-15) MEQ/L BUN 17 (9-20) mg/dL Creatinine 0.67 (0.66-1.25) mg/dL Estimated GFR 103.0 ML/MIN Glucose 198 H (74-106) mg/dL POC Glucometer 260 H 255 H (74 to 106) mg/dL Lactic Acid (0.4-2.0) Calcium 9.7 (8.4-10.2) mg/dL Total Bilirubin (0.2-1.3) mg/dL AST (17-59) U/L ALT (0-50) U/L Alkaline Phosphatase (38-126) U/L Troponin I (0.000-0.034) ng/mL NT-Pro-B Natriuret Pep (<300) pg/mL Serum Total Protein (6.3-8.2) g/dL Albumin (3.5-5.0) g/dL Urine Color (Yellow) Urine Appearance (Clear) Urine pH (4.6-8.0) Ur Specific [place] (1.005-1.030) Urine Protein (Negative) Urine Glucose (UA) (Negative) mg/dL Urine Ketones (Negative) Urine Blood (Negative) Urine Nitrite (Negative) Urine Bilirubin (Negative) Urine Urobilinogen (0.2) mg/dL Ur Leukocyte Esterase (Negative) U Hyaline Cast (Auto) (0-2) /LPF Urine Microscopic RBC (0-5) /HPF Urine Microscopic WBC (0-5) /HPF Ur Epithelial Cells (None Seen) /HPF Urine Bacteria (None Seen) /HPF Urine Culture Reflexed (NO) Influenza Type A Ag (NEGATIVE) Influenza Type B Ag (NEGATIVE) RSV (PCR) (NEGATIVE) SARS-CoV-2 (PCR) (NEGATIVE) Group A Strep Antibody (NEGATIVE) Radiology Exams: Radiology Procedures Category Date Time Status CHEST 1 VIEW (PORTABLE) Stat Exams 08/10/23 21:31 Completed CHEST WITH CONTRAST [CT] Stat Exams 08/10/23 22:54 Completed Assessment/Plan (1) RSV (respiratory syncytial virus pneumonia) Current Visit: Yes Status: Acute Assessment & Plan: Recent hospitalization for RSV, suspect some superimposed pneumonia - O2 supplementation - Duonebs/pulmonary toilet - Defer steroids for now Code(s): J12.1 - RESPIRATORY SYNCYTIAL VIRUS PNEUMONIA (2) Hypoxia Current Visit: No Status: Acute Assessment & Plan: Likely from combination of recent RSV and superimposed pneumonia - Admit to observation status - Supplemental oxygen, Baseline is 2lNC - now on 4LNC - Duonebs/pulmonary toilet - Monitor O2 sats Code(s): R09.02 - HYPOXEMIA (3) History of aspiration pneumonia Current Visit: Yes Status: Chronic Assessment & Plan: - Continue thickend liquids - Zithromax Code(s): Z87.01 - PERSONAL HISTORY OF PNEUMONIA (RECURRENT) (4) Leukocytosis, unspecified Current Visit: No Status: Acute Qualifiers: Assessment & Plan: -Suspect underlying pneumonia - Will start empiric Zithromax - Trend WBC - Monitor for s/s of worsening infection - 08/11 WBC 17.7- did receive steroids in ER Code(s): D72.829 - ELEVATED WHITE BLOOD CELL COUNT, UNSPECIFIED (5) Diabetes mellitus Current Visit: No Status: Chronic Qualifiers: Diabetes mellitus type: type 2 Assessment & Plan: - controlled- A1C 04/29/23 6.01 - Low carb diet - FSBS qAC/HS - Lantus and Insulin sliding scale- mod dose - Defer steroids for now - New A1C pending Code(s): E11.9 - TYPE 2 DIABETES MELLITUS WITHOUT COMPLICATIONS (6) Hx of traumatic brain injury Current Visit: No Status: Chronic Assessment & Plan: -Stable at this time, mentation at baseline VTE: Lovenox PPI: Pepcid Next of KIN: sister D/C plan 1-2 days Code status: SCO/ DNR Code(s): Z87.820 - PERSONAL HISTORY OF TRAUMATIC BRAIN INJURY
[2023-08-11] MEDS: PATIENT OWN MEDICATION PO SCH ×4 (14:21→21:32)
[2023-08-11] MEDS: Protonix 40MG Tablet PO SCH (15:47)
[2023-08-11] MEDS ORDERED: Flomax 0.4 MG PO SCH (22:00)
[2023-08-11] MEDS ORDERED: Zithromax 500 MG/ 250 ML NaCl Premix 500 MG/250 ML IVPB IV SCH (22:00)
[2023-08-11] MEDS ORDERED: ZOCOR 20MG PO SCH (22:00)
[2023-08-12] MEDS: DUONEB 0.5-3 MG/3 ml Neb IH SCH ×3 (01:00→13:31)
[2023-08-12 04:19] LABS: Hemoglobin 10.6 g/dL (12.5-18.0); Mean Cell Volume 88.7 fL (78-100); Mean Corpuscular Hemoglobin 28.5 pg (26-32); Mean Corpuscular Hgb Concent. 32.1 g/dL (32-36); Mean Platelet Volume 10.2 fL (7.5-11.0); Platelet Count 179 x10^3/uL (150-450); Red Blood Count 3.72 x10^6/uL (4.1-5.6); Red Cell Distribution Width 14.9 % (11.5-14.0); White Blood Count 14.6 x10^3/uL (4.0-10.5)
[2023-08-12 04:43] LABS: ALBUMIN 3.3 g/dL (3.5-5.0); BILIRUBIN,TOTAL 0.3 mg/dL (0.2-1.3); Calcium 9.1 mg/dL (8.4-10.2); Creatinine 1 0.58 mg/dL (0.66-1.25); EST GLOMERULAR FILTRATION RATE 107.6 ML/MIN; Potassium 3.3 mmol/L (3.5-5.1); Total Protein 6.2 g/dL (6.3-8.2)
[2023-08-12] MEDS: Protonix 40MG Tablet PO SCH ×2 (06:42→17:20)
[2023-08-12] MEDS: Mucomyst 200 MG/ML IH SCH ×2 (07:05→13:30)
--- NOTE | 2023-08-12 08:51 | PCM.DS ---
Discharge Summary Date of Admission: 08/11/23 01:58 Date of Discharge: 08/12/23 Admitting Physician: KYLEE ANTHONY MD Primary Care Provider: FELISHA NAVAS Allergies Allergies adhesive tape Allergy (Verified 08/11/23 03:27) bee venom protein (honey bee) Allergy (Verified 08/11/23 03:27) Penicillins Allergy (Verified 08/11/23 03:27) poison jarrett extract Allergy (Verified 08/11/23 03:27) Hospital Summary - Hospital Course Hospital Course: 08/11/23 Mr. 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 D -dimer was slightly elevated. He was sent for CT scan that came back negative for PE but some ground glass haziness, and was treated with nebulizers and supplemental oxygen with improvement in his saturation. Initial labs were notable for an elevated WBC of 14.9k, though no fever or chills noted. Given his low O2 sats without supplementation and recent RSV diagnosis, he was recommended for admission. He is seen in the ER, where he is resting in bed comfortably, in no acute distress. He is hemodynamically stable and maintaining good oxygen levels. His baseline oxygen is 2LNC, he is currently on 4LNC. Lung sounds are course today. He is on chronic thickened liquids due to hx of aspiration. Continue antibiotics and duonebs. He denies any further concerns at this time. 08/12/23 Pt resting in bed. He is feeling much better. He is on baseline 2lNC. Lungs sounds have improved. K= ws 3.3 and replaced. After replacement is complete he can d/c. He denies any further concerns at this time. - Vitals & Intake/Output Vital Signs: Vital Signs Temperature 98.3 F 08/12/23 03:51 Pulse Rate 72 08/12/23 07:13 Respiratory Rate 22 08/12/23 07:13 Blood Pressure 121/68 08/12/23 03:51 O2 Sat by Pulse Oximetry 95 08/12/23 07:13 Intake & Output: Intake & Output 08/09/23 08/10/23 08/11/23 08/12/23 11:59 11:59 11:59 11:59 Intake Total 500 840 Output Total 1000 1600 Balance -500 -760 Weight 72.3 kg - Lab Result Diagrams: 08/12/23 04:00 08/12/23 04:09 Lab Results-Last 24 Hrs: Lab Results-Last 24 Hours 08/11/23 08/11/23 08/11/23 Range/Units 12:02 16:19 20:47 WBC (4.0-10.5) x10^3/uL RBC (4.1-5.6) x10^6/uL Hgb (12.5-18.0) g/dL Hct (42-50) % MCV (78-100) fL MCH (26-32) pg MCHC (32-36) g/dL RDW (11.5-14.0) % Plt Count (150-450) x10^3/uL MPV (7.5-11.0) fL Sodium (137-145) mmol/L Potassium (3.5-5.1) mmol/L Chloride (98-107) mmol/L Carbon Dioxide (22-30) mmol/L Anion Gap (5-15) MEQ/L BUN (9-20) mg/dL Creatinine (0.66-1.25) mg/dL Estimated GFR ML/MIN Glucose (74-106) mg/dL POC Glucometer 255 H 203 H 395 H (74 to 106) mg/dL Hemoglobin A1c (4.5-6.0) % Calcium (8.4-10.2) mg/dL Total Bilirubin (0.2-1.3) mg/dL AST (17-59) U/L ALT (0-50) U/L Alkaline Phosphatase (38-126) U/L Serum Total Protein (6.3-8.2) g/dL Albumin (3.5-5.0) g/dL 08/12/23 08/12/23 08/12/23 Range/Units 04:00 04:09 04:09 WBC 14.6 H (4.0-10.5) x10^3/uL RBC 3.72 L (4.1-5.6) x10^6/uL Hgb 10.6 L (12.5-18.0) g/dL Hct 33.0 L (42-50) % MCV 88.7 (78-100) fL MCH 28.5 (26-32) pg MCHC 32.1 (32-36) g/dL RDW 14.9 H (11.5-14.0) % Plt Count 179 (150-450) x10^3/uL MPV 10.2 (7.5-11.0) fL Sodium 135 L (137-145) mmol/L Potassium 3.3 L (3.5-5.1) mmol/L Chloride 101 (98-107) mmol/L Carbon Dioxide 27 (22-30) mmol/L Anion Gap 11.0 (5-15) MEQ/L BUN 15 (9-20) mg/dL Creatinine 0.58 L (0.66-1.25) mg/dL Estimated GFR 107.6 ML/MIN Glucose 135 H (74-106) mg/dL POC Glucometer (74 to 106) mg/dL Hemoglobin A1c 6.00 (4.5-6.0) % Calcium 9.1 (8.4-10.2) mg/dL Total Bilirubin 0.30 (0.2-1.3) mg/dL AST 31 (17-59) U/L ALT 30 (0-50) U/L Alkaline Phosphatase 44 (38-126) U/L Serum Total Protein 6.2 L (6.3-8.2) g/dL Albumin 3.3 L (3.5-5.0) g/dL 08/12/23 Range/Units 08:13 WBC (4.0-10.5) x10^3/uL RBC (4.1-5.6) x10^6/uL Hgb (12.5-18.0) g/dL Hct (42-50) % MCV (78-100) fL MCH (26-32) pg MCHC (32-36) g/dL RDW (11.5-14.0) % Plt Count (150-450) x10^3/uL MPV (7.5-11.0) fL Sodium (137-145) mmol/L Potassium (3.5-5.1) mmol/L Chloride (98-107) mmol/L Carbon Dioxide (22-30) mmol/L Anion Gap (5-15) MEQ/L BUN (9-20) mg/dL Creatinine (0.66-1.25) mg/dL Estimated GFR ML/MIN Glucose (74-106) mg/dL POC Glucometer 152 H (74 to 106) mg/dL Hemoglobin A1c (4.5-6.0) % Calcium (8.4-10.2) mg/dL Total Bilirubin (0.2-1.3) mg/dL AST (17-59) U/L ALT (0-50) U/L Alkaline Phosphatase (38-126) U/L Serum Total Protein (6.3-8.2) g/dL Albumin (3.5-5.0) g/dL Micro Results-Entire Visit: Accuchecks Date 08/11/23 Date 08/11/23 Date 08/11/23 Time 16:45 Time 12:06 - Radiology Exams Ordered Rad Exams-Entire Visit: Radiology Procedures Category Date Time Status CHEST 1 VIEW (PORTABLE) Stat Exams 08/10/23 21:31 Completed CHEST WITH CONTRAST [CT] Stat Exams 08/10/23 22:54 Completed - Procedures and Test Procedures and Tests throughout Hospitalization: Therapy Orders & Screens 08/10/23 22:14 Respiratory Therapy Assessment UD Comment: 08/11/23 02:00 Oxygen Nasal Cannula 2 lpm Comment: Diagnosis: shortness of breath Respiratory Therapy Consult ONCE Comment: Reason For Exam: Diagnosis: shortness of breath 08/11/23 02:01 Oxygen Nasal Cannula 3 lpm Comment: Respiratory Therapy Consult ONCE Comment: Reason For Exam: 08/11/23 02:16 Respiratory Therapy Assessment UD Comment: Diagnosis: shortness of breath 08/11/23 02:46 RT Screen per Nursing Assess ONCE Comment: Protocol Order Physician Instructions: Greater than 3 points order RT Admission Screen Reason For Exam: Triggered on Admission Diagnosis: RSV, COPD exacerbation, shortness of breath Diagnosis: RSV, COPD exacerbation, shortness of breath Pneumonia: Yes Home O2: Yes Asthma: No CHF: No Home CPAP/BIPAP: Yes Home Nebs/MDI: Yes Total Points: 18 ST Screen per Nursing Assess ONCE Comment: Protocol Order Physician Instructions: Greater than [address] Admission Screening Reason For Exam: Triggered on Admission Diagnosis: RSV, COPD exacerbation, shortness of breath CVA/Dyshpagia/Aphasia: No Cognitive Deficits: No Dehydration/Nutrition Deficit: No Reflux: No Oral-Motor Difficulties: No Pneumonia: Yes Penitentiary Resident: No Total Points: 5 Discharge Exam General Appearance: no apparent distress, alert Neurologic Exam: alert, oriented x 3, cooperative, normal mood/affect, nml cerebellar function, sensation nml, No motor deficits Eye Exam: PERRL, EOMI, eyes nml inspection Ears, Nose, Throat Exam: normal ENT inspection, pharynx normal, moist mucous membranes Neck Exam: normal inspection, non-tender, supple, full range of motion Respiratory Exam: normal breath sounds, lungs clear, No respiratory distress Cardiovascular Exam: regular rate/rhythm, normal heart sounds Gastrointestinal/Abdomen Exam: soft, No tenderness, No mass Male Genitalia Exam: deferred Rectal Exam: deferred Back Exam: normal inspection, normal range of motion, No CVA tenderness, No vertebral tenderness Extremity Exam: normal inspection, normal range of motion Skin Exam: normal color, warm, dry Final Diagnosis/Problem List - Final Discharge Diagnosis/Problem (1) RSV (respiratory syncytial virus pneumonia) Current Visit: Yes Status: Acute Code(s): J12.1 - RESPIRATORY SYNCYTIAL VIR US PNEUMONIA (2) Hypoxia Current Visit: No Status: Acute Code(s): R09.02 - HYPOXEMIA (3) History of aspiration pneumonia Current Visit: Yes Status: Chronic Code(s): Z87.01 - PERSONAL HISTORY OF PNEUMONIA (RECURRENT) (4) Leukocytosis, unspecified Current Visit: No Status: Acute Code(s): D72.829 - ELEVATED WHITE BLOOD CELL COUNT, UNSPECIFIED (5) Diabetes mellitus Current Visit: No Status: Chronic Code(s): E11.9 - TYPE 2 DIABETES MELLITUS WITHOUT COMPLICATIONS (6) Hx of traumatic brain injury Current Visit: No Status: Chronic Assessment & Plan: (1) RSV (respiratory syncytial virus pneumonia) Current Visit: Yes Status: Acute Assessment & Plan: Recent hospitalization for RSV, suspect some superimposed pneumonia - O2 supplementation - Duonebs/pulmonary toilet - Defer steroids for now Code(s): J12.1 - RESPIRATORY SYNCYTIAL VIRUS PNEUMONIA (2) Hypoxia Current Visit: No Status: Acute Assessment & Plan: Likely from combination of recent RSV and superimposed pneumonia - Admit to observation status - Supplemental oxygen, Baseline is 2lNC - now on 4LNC - Duonebs/pulmonary toilet - Monitor O2 sats Code(s): R09.02 - HYPOXEMIA (3) History of aspiration pneumonia Current Visit: Yes Status: Chronic Assessment & Plan: - Continue thickend liquids - Zithromax Code(s): Z87.01 - PERSONAL HISTORY OF PNEUMONIA (RECURRENT) (4) Leukocytosis, unspecified Current Visit: No Status: Acute Qualifiers: Assessment & Plan: -Suspect underlying pneumonia - Will start empiric Zithromax - Trend WBC - Monitor for s/s of worsening infection - 08/11 WBC 17.7- did receive steroids in ER - 08/12 WBC improved 14.6 Code(s): D72.829 - ELEVATED WHITE BLOOD CELL COUNT, UNSPECIFIED (5) Diabetes mellitus Current Visit: No Status: Chronic Qualifiers: Diabetes mellitus type: type 2 Assessment & Plan: - controlled- A1C 04/29/23 6.01 - Low carb diet - FSBS qAC/HS - Lantus and Insulin sliding scale- mod dose - Defer steroids for now - New A1C pending Code(s): E11.9 - TYPE 2 DIABETES MELLITUS WITHOUT COMPLICATIONS (6) Hx of traumatic brain injury Current Visit: No Status: Chronic Assessment & Plan: -Stable at this time, mentation at baseline Code(s): Z87.820 - PERSONAL HISTORY OF TRAUMATIC BRAIN INJURY (7) Hypokalemia Current Visit: Yes Status: Acute Assessment & Plan: - K+ 3.3- replaced Code(s): E87.6 - HYPOKALEMIA - Discharge Discharge Date: 08/12/23 Disposition: Home, Self-Care Condition: Good Prescriptions: New Azithromycin 250 mg [Zithromax 250 MG TABLET] 250 mg PO DAILY 4 Days #4 tablet Continue Omeprazole 40 mg PO BIDAC Primidone 50 MG [Mysoline 50Mg] 50 mg PO TID Duloxetine HCl [Cymbalta] 60 mg PO BID Divalproex Sodium [Depakote] 1,000 mg PO BID Multivitamin [Multivitamins] 1 cap PO DAILY Loratadine 10 mg PO DAILY Atorvastatin Calcium 40 mg PO HS Maltodextrin/Xanthan Gum [Thicken Up Clear Powder Packet] 1 packet PO ACHS EPINEPHrine [Epipen 2-Jeffery] 0.3 mg IM UD PRN PRN Reason: allergic reaction Aspirin 81 mg PO DAILY Gabapentin [Neurontin ] 300 mg PO TID capsule Acetaminophen 500 mg [Tylenol Extra Strength 500 mg] 500 mg PO TID Docusate Sodium 100 mg [Docusate Sodium 100 MG] 100 mg PO BID Acarbose [Precose] 50 mg PO TID Cholecalciferol (Vitamin D3) [Vitamin D] 1,000 unit PO DAILY Theophylline Anhydrous [Theophylline ER 24Hr] 400 mg PO BID Calcium Carbonate/Vitamin D3 [Calcium 600 mg-D3 10 Mcg Sfgl] 1 tab PO DAILY Tamsulosin HCl 0.4 mg [Flomax 0.4 MG] 0.4 mg PO HS Albuterol Sulfate 0.63 mg IH TID Insulin Glargine,Hum.rec.anlog [Lantus] 12 unit SQ QAM Levomefolate/Algal Oil [l-Methylfolate Forte 7.5 mg Cp] 1 cap PO BID Oxybutynin Chloride [Oxybutynin Chloride ER] 10 mg PO DAILY Polyethylene Glycol 3350 17 gm [Miralax Powder 17GM PACKET] 17 gm PO DAILY Dulaglutide [Trulicity] 3 mg SQ WEEKLY Bupropion HCl Xl 150 mg [Wellbutrin XL 150 MG] 150 mg PO DAILY Acetylcysteine IV 200 mg/ml [Acetadote IV 200 MG/ML] 100 mg IH QID Empagliflozin [Jardiance] 10 mg PO DAILY Dextromethorphan HBr 15 mg PO BID Albuterol Sulfate [Albuterol Sulfate Hfa] 90 mcg IH BID Tiotropium [place] Inhaler [Spiriva 18 Mcg/Cap Inhaler] 1 cap IH DAILY Albuterol Sulfate [Proair Digihaler] 2 puff IH QID Insulin Lispro [Humalog] 1 unit SQ UD glucagon HCL [Glucagon Emergency Kit] 1 mg SQ UD Cholecalciferol (Vitamin D3) [Vitamin D3] 25 mcg PO DAILY Follow up with: FELISHA NAVAS MD [Primary Care Provider] -
[2023-08-12] MEDS ORDERED: Sodium Chloride 0.9% 500 ML 500 ML IV SCH (09:00)
[2023-08-12] MEDS: POTASSIUM CHLORIDE 20 mEq IN WATER 100ML 20 MEQ/100 ML BAG IV SCH ×2 (09:41→12:18)
[2023-08-12] MEDS: VITAMIN D PO SCH (11:01)
[2023-08-12] MEDS: ECOTRIN 81 MG PO SCH (11:02)
[2023-08-12] MEDS: Pepcid 20 MG PO SCH (11:02)
[2023-08-12] MEDS: MYSOLINE 50MG PO SCH ×2 (11:03→14:20)
[2023-08-12] MEDS: Cymbalta 30 MG Capsule PO SCH (11:03)
[2023-08-12] MEDS: TYLENOL EXTRA STRENGTH 500 MG PO SCH ×2 (11:03→14:20)
[2023-08-12] MEDS: Calcium 500MG W/Vit D Tablet PO SCH (11:03)
[2023-08-12] MEDS: Docusate Sodium 100 MG PO SCH (11:03)
[2023-08-12] MEDS: Ditropan XL 5 MG PO SCH (11:03)
[2023-08-12] MEDS: NEURONTIN PO SCH ×2 (11:04→14:20)
[2023-08-12] MEDS: PATIENT OWN MEDICATION PO SCH ×2 (11:04→11:05)
[2023-08-12] MEDS: ENOXAPARIN SODIUM SQ SCH (11:04)
[2023-08-12] MEDS: THERAGRAN MULTIVITAMIN PO SCH (11:04)
[2023-08-12] MEDS: Wellbutrin XL 150 MG PO SCH (11:05)
[2023-08-12] MEDS: JARDIANCE PO SCH (11:06)
[2023-08-12] MEDS: THEOPHYLLINE ER 24HR PO SCH (11:06)
[2023-08-12] MEDS: CLARITIN 10 MG PO SCH (11:08)
[2023-08-12] MEDS: Miralax Powder 17GM PACKET PO SCH (11:12)
[2023-08-12] MEDS: Lantus Insulin SQ SCH (11:12)
[2023-08-12] MEDS ORDERED: Tums EX 750 MG PO PRN (11:49)
[2023-08-12] MEDS: HUMALOG SQ PRN ×2 (12:18→17:20)
[2023-08-12 16:27] VITALS: BP 108/57; PULSE 87; RESP 21; TEMP 98.7; O2SAT 100
== END 2023-08-12 18:18 | disposition home or self-care (01) ==
LOC: ED 21:20 → MED SURG 08-11 01:58
PROVIDERS: ADMIT Internal Medicine Nephrology; ATTEND Internal Medicine Nephrology
DX: J12.1 Respiratory syncytial virus pneumonia (principal); R09.02 Hypoxemia; Z87.01 Personal history of pneumonia (recurrent); D72.829 Elevated white blood cell count, unspecified; E11.9 Type 2 diabetes mellitus without complications; E87.6 Hypokalemia; I10 Essential (primary) hypertension; E78.5 Hyperlipidemia, unspecified; Z87.820 Personal history of traumatic brain injury; Z79.899 Other long term (current) drug therapy; Z20.828 Contact with and (suspected) exposure to other viral communicable diseases
CPT/HCPCS: 0241U; 36415; 71045; 71260; 80048; 80053; 81001; 82947; 83036; 83605; 83735; 83880; 84132; 84484; 85025; 85027; 85379; 87651; 93005; 94640; 94760; 94762; 99284; Q3014; 93268; J0456; J1650; J1817; J3480; A9270-GY; G0378

== ENCOUNTER 2023-08-17 22:18 | Inpatient (IN) | payer MEDICARE ==
[2023-08-17] MEDS ORDERED: PROVENTIL 2.5 MG/3 ML NEB IH ONE ×2 (23:04→23:14)
[2023-08-17] MEDS ORDERED: Zithromax 500 MG/ 250 ML NaCl Premix 500 MG/250 ML IVPB IV STA (23:04)
[2023-08-17] MEDS ORDERED: ROCEPHIN 1 Gm-D5w 50 ml Bag** 1 G/50 ML IVPB IV STA (23:04)
[2023-08-17] MEDS ORDERED: Sodium Chloride 0.9% 1000 ML 1,000 ML IV STA (23:04)
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
[2023-08-17 23:35] LABS: Hematocrit 39.3 % (42-50); Hemoglobin 12.4 g/dL (12.5-18.0); Mean Cell Volume 89.3 fL (78-100); Mean Corpuscular Hemoglobin 28.2 pg (26-32); Mean Corpuscular Hgb Concent. 31.6 g/dL (32-36); Mean Platelet Volume 9.6 fL (7.5-11.0); Platelet Count 267 x10^3/uL (150-450); Red Cell Distribution Width 14.2 % (11.5-14.0); White Blood Count 21.8 x10^3/uL (4.0-10.5)
[2023-08-17] MEDS ORDERED: ROCEPHIN 1 Gm-D5w 50 ml Bag** 1 G/50 ML IVPB IV ONE (23:42)
[2023-08-17] MEDS ORDERED: Sodium Chloride 0.9% 1000 ML 1,000 ML ONE (23:42)
[2023-08-17 23:48] LABS: ALBUMIN 4.1 g/dL (3.5-5.0); ANION GAP 13.2 MEQ/L (5-15); BILIRUBIN,TOTAL 0.4 mg/dL (0.2-1.3); Calcium 9.8 mg/dL (8.4-10.2); Creatinine 1 0.68 mg/dL (0.66-1.25); EST GLOMERULAR FILTRATION RATE 102.5 ML/MIN; MAGNESIUM 2.1 mg/dL (1.6-2.3); Potassium 3.9 mmol/L (3.5-5.1); Total Protein 7.2 g/dL (6.3-8.2)
[2023-08-18 00:11] LABS: INFLUENZA A NEGATIVE (NEGATIVE); INFLUENZA B NEGATIVE (NEGATIVE); RESPIRATORY SYNCTIAL VIRUS NEGATIVE (NEGATIVE); SARS-CoV-2 Xpert Express NEGATIVE (NEGATIVE)
[2023-08-18 00:12] LABS: ATYPICAL LYMPHS 8 %; BAND 3 % (0.0-2.0); Eosinophil 1 % (0.00-3.0); Lymphocytes 21 % (24-44); Monocyte 2 % (0.0-12.0); Neutrophils 65 % (36.-66.); Platelet Estimate NORMAL (NORMAL); Total Cells Counted 100
[2023-08-18] MEDS ORDERED: Zithromax 500 MG/ 250 ML NaCl Premix 500 MG/250 ML IVPB IV ONE (00:23)
[2023-08-18] MEDS ORDERED: TYLENOL 325 MG PO PRN (00:33)
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
[2023-08-18] MEDS ORDERED: DUONEB 0.5-3 MG/3 ml Neb IH SCH (01:00)
[2023-08-18 03:41] LABS: Hematocrit 35.9 % (42-50); Hemoglobin 11.1 g/dL (12.5-18.0); Mean Cell Volume 91.3 fL (78-100); Mean Corpuscular Hemoglobin 28.2 pg (26-32); Mean Corpuscular Hgb Concent. 30.9 g/dL (32-36); Mean Platelet Volume 9.8 fL (7.5-11.0); Platelet Count 239 x10^3/uL (150-450); Red Blood Count 3.93 x10^6/uL (4.1-5.6); Red Cell Distribution Width 14.4 % (11.5-14.0); White Blood Count 22.9 x10^3/uL (4.0-10.5)
[2023-08-18 03:55] LABS: ALBUMIN 3.5 g/dL (3.5-5.0); ANION GAP 12.8 MEQ/L (5-15); BILIRUBIN,TOTAL 0.4 mg/dL (0.2-1.3); Calcium 9.2 mg/dL (8.4-10.2); Creatinine 1 0.62 mg/dL (0.66-1.25); EST GLOMERULAR FILTRATION RATE 105.4 ML/MIN; Total Protein 6.1 g/dL (6.3-8.2)
[2023-08-18 04:22] LABS: ATYPICAL LYMPHS 6 %; BAND 5 % (0.0-2.0); Eosinophil 1 % (0.00-3.0); Hypochromia 1+; Lymphocytes 18 % (24-44); Neutrophils 70 % (36.-66.); Platelet Estimate NORMAL (NORMAL); Total Cells Counted 100
[2023-08-18] MEDS: PROVENTIL 2.5 MG/3 ML NEB IH SCH ×4 (05:08→18:31)
[2023-08-18] MEDS: Spiriva 18 Mcg/Cap Inhaler IH SCH ×2 (05:10→05:12)
[2023-08-18] MEDS: Advair Hfa 115/21 Common canister IH SCH ×2 (05:10→18:41)
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
[2023-08-18] MEDS ORDERED: MEDICATION INTERVENTION MC SCH ×3 (07:30)
[2023-08-18] MEDS: Protonix 40MG Tablet PO SCH ×2 (08:11→16:13)
--- NOTE | 2023-08-18 08:50 | XRAY ---
Indication: Short of breath. Comparison: August 10, 2023 PA/lateral chest less inflated. Interval mild clearing previous right lung groundglass airspace disease and mild clearing left base infiltrate/atelectasis both with minimal residual. Remaining heart and lungs unremarkable.
[2023-08-18] MEDS ORDERED: DEXTROMETHORPHAN HBR 15 MG PO SCH (10:00)
[2023-08-18] MEDS ORDERED: ACARBOSE 50 MG PO SCH (10:00)
[2023-08-18] MEDS ORDERED: Spiriva 18 Mcg/Cap Inhaler IH SCH (10:00)
[2023-08-18] MEDS ORDERED: LEVOMEFOLATE PO SCH (10:00)
[2023-08-18] MEDS ORDERED: ALGAL OIL PO SCH (10:00)
[2023-08-18] MEDS ORDERED: [UNRECOGNIZED DRUG - OTHER] PO SCH (10:00)
[2023-08-18] MEDS: Lantus Insulin SQ SCH (10:11)
[2023-08-18] MEDS: ENOXAPARIN SODIUM SQ SCH (10:11)
[2023-08-18] MEDS: Cymbalta 30 MG Capsule PO SCH ×2 (10:14→21:38)
[2023-08-18] MEDS: THERAGRAN MULTIVITAMIN PO SCH (10:15)
[2023-08-18] MEDS: Ditropan XL 5 MG PO SCH (10:15)
[2023-08-18] MEDS: CLARITIN 10 MG PO SCH (10:15)
[2023-08-18] MEDS: Docusate Sodium 100 MG PO SCH ×2 (10:15→21:39)
[2023-08-18] MEDS: ECOTRIN 81 MG PO SCH (10:15)
[2023-08-18] MEDS: Calcium 500MG W/Vit D Tablet PO SCH (10:15)
[2023-08-18] MEDS: MYSOLINE 50MG PO SCH ×3 (10:15→21:39)
[2023-08-18] MEDS: NEURONTIN PO SCH ×3 (10:15→21:38)
[2023-08-18] MEDS: THEOPHYLLINE ER 24HR PO SCH ×2 (10:16→21:42)
[2023-08-18] MEDS: JARDIANCE PO SCH (10:16)
[2023-08-18] MEDS: Miralax Powder 17GM PACKET PO SCH (10:17)
[2023-08-18] MEDS: Wellbutrin XL 150 MG PO SCH (10:17)
[2023-08-18] MEDS: Lotrisone Cream TOP SCH ×3 (10:33→21:55)
[2023-08-18] MEDS: Mucomyst 200 MG/ML IH SCH ×2 (11:24→18:00)
[2023-08-18] MEDS: HUMALOG SQ PRN ×3 (12:26→21:44)
--- NOTE | 2023-08-18 14:59 | XRAY ---
Indication: Short of breath and cough. Pulmonary embolus. Negative CT pulmonary embolus exam August 10, 2023. Multiple contiguous axial images obtained through the chest using 80 cc Isovue 370 contrast and PE protocol. Comparison: August 10, 2023 Good opacification of the pulmonary arteries to include the lobar and segmental branches. Again no pulmonary embolus. Heart not enlarged. Aorta is normal in course and caliber. No pathologic mediastinal/hilar lymphadenopathy. Lungs improved with moderate clearing previous diffuse bilateral groundglass airspace opacities. Trace amount residual seen in both mid to lower lungs. Grossly stable appearing bilateral mid to lower lung subsegmental atelectasis, and greatest left lower lobe. Bony thorax intact again with minimal degenerative changes throughout the spine and incompletely visualized lumbar fusion hardware. Limited upper abdomen again demonstrates marked colonic fecal stasis. Impression: 1. Continued negative pulmonary embolus. 2. Lungs improved with clearing previous bilateral groundglass airspace opacities with minimal residual still present. Grossly stable bilateral mid to lower lung subsegmental atelectasis. 3. Again incidental degenerative spondylosis, incompletely visualized lumbar fusion hardware, and marked colonic fecal stasis
[2023-08-18] MEDS: Flomax 0.4 MG PO SCH (21:38)
[2023-08-18] MEDS: ZOCOR 20MG PO SCH (21:38)
[2023-08-18] MEDS: PATIENT OWN MEDICATION PO SCH ×2 (21:41)
[2023-08-18] MEDS: ROCEPHIN 1 Gm-D5w 50 ml Bag** 1 G/50 ML IVPB IV SCH (21:44)
[2023-08-18] MEDS: Zithromax 500 MG/ 250 ML NaCl Premix 500 MG/250 ML IVPB IV SCH (22:24)
[2023-08-19] MEDS: PROVENTIL 2.5 MG/3 ML NEB IH SCH ×4 (00:28→19:19)
[2023-08-19 04:51] LABS: Hematocrit 33.7 % (42-50); Hemoglobin 10.6 g/dL (12.5-18.0); Mean Cell Volume 90.1 fL (78-100); Mean Corpuscular Hemoglobin 28.3 pg (26-32); Mean Corpuscular Hgb Concent. 31.5 g/dL (32-36); Mean Platelet Volume 10.1 fL (7.5-11.0); Platelet Count 246 x10^3/uL (150-450); Red Blood Count 3.74 x10^6/uL (4.1-5.6); Red Cell Distribution Width 14.7 % (11.5-14.0); White Blood Count 14.9 x10^3/uL (4.0-10.5)
[2023-08-19 05:05] LABS: ALBUMIN 3.5 g/dL (3.5-5.0); ANION GAP 9.9 MEQ/L (5-15); BILIRUBIN,TOTAL 0.3 mg/dL (0.2-1.3); Calcium 9.2 mg/dL (8.4-10.2); Creatinine 1 0.66 mg/dL (0.66-1.25); EST GLOMERULAR FILTRATION RATE 103.4 ML/MIN; Potassium 3.8 mmol/L (3.5-5.1); Total Protein 6.2 g/dL (6.3-8.2)
--- NOTE | 2023-08-19 05:19 | PCM.NOTE ---
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 Recent admission at another facility for RSV six days ago. On presentation (EMS)patient febrile temp reported by EMS at 102, hypoxic with spo2 @ 88%, and tachycardic. CXR demonstrating pneumonia. EKG with sinus tach, non- specific ST changes. Patient admitted acute respiratory failure/Sepsis with hypoxia 2/2 to pneumonia. Current treatment with supportive therapies, Rocephin and azithromycin. 08/18/23: Met with patient bedside. Endorses improvement of shortness of breath and cough. At 2L baseline oxygen. Concern for aspiration. Patient is prescribed thickened liquids. Lung sounds coarse with mild wheezing on auscultation. Patient states cough is productive, unknown color of sputum. Sister has requested pulm consult with Steven. Will order CT today. IS ordered. Denies fever, cp, abdominal pain, PELLETIER, dizziness, N/V/D. 08/19/23: Patient up in chair. States dyspnea and cough have improved. Continued chronic back pain. CT findings showing clearing of previous bilateral groundglass opacities with minimal residual. Discussed labwork, WBC improving. Lung sound with exp wheezing/crackles on auscultation. Plan for continued treatment with steroid/abx, possible discharge home tomorrow. Denies fever, cp, abdominal pain, PELLETIER, dizziness, N/V/D. - Review of Systems Constitutional: No Symptoms Eyes: No Symptoms Ears, Nose, & Throat: No Symptoms Respiratory: Cough, Short Of Breath, Wheezing Cardiac: No Symptoms Abdominal/Gastrointestinal: No Symptoms Genitourinary Symptoms: No Symptoms Musculoskeletal: Back Pain (chronic) Skin: No Symptoms Neurological: No Symptoms Psychological: No Symptoms Endocrine: No Symptoms Hematologic/Lymphatic: No Symptoms Immunological/Allergic: No Symptoms Objective Exam General Appearance: no apparent distress Neurologic Exam: alert, oriented x 3, cooperative Skin Exam: normal color Eye Exam: PERRL Ears, Nose, Throat Exam: normal ENT inspection Neck Exam: normal inspection Respiratory Exam: crackles/rales, wheezing Cardiovascular Exam: regular rate/rhythm, normal heart sounds Gastrointestinal/Abdomen Exam: soft, normal bowel sounds Extremity Exam: normal inspection Back Exam: normal inspection Male Genitalia Exam: deferred Rectal Exam: deferred OBJECTIVE DATA Vital Signs: Vital Signs - 24 hr Temp Pulse Resp BP Pulse Ox 08/19/23 04:00 97.4 F 70 18 113/70 92 L 08/19/23 02:00 73 08/19/23 00:28 73 16 97 08/18/23 23:33 97.3 F 79 18 142/72 97 08/18/23 19:24 97.8 F 93 H 18 117/76 96 08/18/23 18:31 85 16 95 08/18/23 16:00 97.6 F 79 18 118/55 95 08/18/23 12:00 97.2 F 75 17 103/51 95 08/18/23 11:29 75 20 95 08/18/23 07:36 97.2 F 73 18 121/64 94 L 08/18/23 06:47 94 L Pain Assessment - Last Documented Pain Intensity 0 Intake and Output: Intake & Output 08/16/23 08/17/23 08/18/23 08/19/23 11:59 11:59 11:59 11:59 Intake Total 720 480 Output Total 1580 400 Balance -860 80 Weight 74.3 kg Lab Results: Lab Results-Last 24 Hours 08/18/23 08/18/23 08/18/23 Range/Units 07:31 07:40 07:40 WBC (4.0-10.5) x10^3/uL RBC (4.1-5.6) x10^6/uL Hgb (12.5-18.0) g/dL Hct (42-50) % MCV (78-100) fL MCH (26-32) pg MCHC (32-36) g/dL RDW (11.5-14.0) % Plt Count (150-450) x10^3/uL MPV (7.5-11.0) fL Sodium (137-145) mmol/L Potassium (3.5-5.1) mmol/L Chloride (98-107) mmol/L Carbon Dioxide (22-30) mmol/L Anion Gap (5-15) MEQ/L BUN (9-20) mg/dL Creatinine (0.66-1.25) mg/dL Estimated GFR ML/MIN Glucose (74-106) mg/dL POC Glucometer 156 H (74 to 106) mg/dL Hemoglobin A1c (4.5-6.0) % Lactic Acid (0.4-2.0) Calcium (8.4-10.2) mg/dL Total Bilirubin (0.2-1.3) mg/dL AST (17-59) U/L ALT (0-50) U/L Alkaline Phosphatase (38-126) U/L Troponin I 0.013 (0.000-0.034) ng/mL Serum Total Protein (6.3-8.2) g/dL Albumin (3.5-5.0) g/dL Procalcitonin 0.418 H (0.030-0.080) ng/mL Nasal Screen MRSA (PCR) (NEGATIVE) 08/18/23 08/18/23 08/18/23 Range/Units 07:40 07:50 11:25 WBC (4.0-10.5) x10^3/uL RBC (4.1-5.6) x10^6/uL Hgb (12.5-18.0) g/dL Hct (42-50) % MCV (78-100) fL MCH (26-32) pg MCHC (32-36) g/dL RDW (11.5-14.0) % Plt Count (150-450) x10^3/uL MPV (7.5-11.0) fL Sodium (137-145) mmol/L Potassium (3.5-5.1) mmol/L Chloride (98-107) mmol/L Carbon Dioxide (22-30) mmol/L Anion Gap (5-15) MEQ/L BUN (9-20) mg/dL Creatinine (0.66-1.25) mg/dL Estimated GFR ML/MIN Glucose (74-106) mg/dL POC Glucometer (74 to 106) mg/dL Hemoglobin A1c 6.40 H (4.5-6.0) % Lactic Acid 1.4 (0.4-2.0) Calcium (8.4-10.2) mg/dL Total Bilirubin (0.2-1.3) mg/dL AST (17-59) U/L ALT (0-50) U/L Alkaline Phosphatase (38-126) U/L Troponin I (0.000-0.034) ng/mL Serum Total Protein (6.3-8.2) g/dL Albumin (3.5-5.0) g/dL Procalcitonin (0.030-0.080) ng/mL Nasal Screen MRSA (PCR) NOT DETECTED (NEGATIVE) 08/18/23 08/18/23 08/18/23 Range/Units 11:40 16:36 21:18 WBC (4.0-10.5) x10^3/uL RBC (4.1-5.6) x10^6/uL Hgb (12.5-18.0) g/dL Hct (42-50) % MCV (78-100) fL MCH (26-32) pg MCHC (32-36) g/dL RDW (11.5-14.0) % Plt Count (150-450) x10^3/uL MPV (7.5-11.0) fL Sodium (137-145) mmol/L Potassium (3.5-5.1) mmol/L Chloride (98-107) mmol/L Carbon Dioxide (22-30) mmol/L Anion Gap (5-15) MEQ/L BUN (9-20) mg/dL Creatinine (0.66-1.25) mg/dL Estimated GFR ML/MIN Glucose (74-106) mg/dL POC Glucometer 296 H 251 H 297 H (74 to 106) mg/dL Hemoglobin A1c (4.5-6.0) % Lactic Acid (0.4-2.0) Calcium (8.4-10.2) mg/dL Total Bilirubin (0.2-1.3) mg/dL AST (17-59) U/L ALT (0-50) U/L Alkaline Phosphatase (38-126) U/L Troponin I (0.000-0.034) ng/mL Serum Total Protein (6.3-8.2) g/dL Albumin (3.5-5.0) g/dL Procalcitonin (0.030-0.080) ng/mL Nasal Screen MRSA (PCR) (NEGATIVE) 08/19/23 08/19/23 Range/Units 04:13 04:13 WBC 14.9 H (4.0-10.5) x10^3/uL RBC 3.74 L (4.1-5.6) x10^6/uL Hgb 10.6 L (12.5-18.0) g/dL Hct 33.7 L (42-50) % MCV 90.1 (78-100) fL MCH 28.3 (26-32) pg MCHC 31.5 L (32-36) g/dL RDW 14.7 H (11.5-14.0) % Plt Count 246 (150-450) x10^3/uL MPV 10.1 (7.5-11.0) fL Sodium 137 (137-145) mmol/L Potassium 3.8 (3.5-5.1) mmol/L Chloride 101 (98-107) mmol/L Carbon Dioxide 30 (22-30) mmol/L Anion Gap 9.9 (5-15) MEQ/L BUN 15 (9-20) mg/dL Creatinine 0.66 (0.66-1.25) mg/dL Estimated GFR 103.4 ML/MIN Glucose 139 H (74-106) mg/dL POC Glucometer (74 to 106) mg/dL Hemoglobin A1c (4.5-6.0) % Lactic Acid (0.4-2.0) Calcium 9.2 (8.4-10.2) mg/dL Total Bilirubin 0.30 (0.2-1.3) mg/dL AST 27 (17-59) U/L ALT 27 (0-50) U/L Alkaline Phosphatase 46 (38-126) U/L Troponin I (0.000-0.034) ng/mL Serum Total Protein 6.2 L (6.3-8.2) g/dL Albumin 3.5 (3.5-5.0) g/dL Procalcitonin (0.030-0.080) ng/mL Nasal Screen MRSA (PCR) (NEGATIVE) Radiology Exams: Radiology Procedures Category Date Time Status CHEST 2 VIEWS (PA AND LAT) Stat Exams 08/17/23 23:06 Completed CHEST WITH CONTRAST [CT] Urgent Exams 08/18/23 10:05 Completed Multi-Disciplinary Progress Notes: Multi-Disciplinary Progress Notes 08/18/23 18:00 Respiratory Note by Jena Pascual DISCONTINUED MUCOMYST. NO LONGER TAKING AT HOME-VERIFIED WITH CAREGIVER. Initialized on 08/18/23 18:00 - END OF NOTE Assessment/Plan (1) Sepsis Current Visit: Yes Status: Acute Assessment & Plan: -Most likely secondary to pneumonia -Supplemental oxygen for goal spo2 > 92% -Baseline 2L continuous, patient states he usually only uses at night -Blood/sputum cultures pending -lactic WNL, procal elevated, UA pending -1L bolus given in ED -Rocephin/azithromycin started, will continue, follow cultures -MRSA nasal swab screen 08/19: -No longer meets sepsis/sirs criteria -WBC trending down -Blood cultures NGTD -CT showing Lungs improved with clearing previous bilateral groundglass airspace opacities with minimal residual still present. Grossly stable bilateral mid to lower lung subsegmental atelectasis. (2) Acute respiratory failure with hypoxia Current Visit: Yes Status: Acute Assessment & Plan: -secondary to pneumonia, treat underlying cause, supplemental oxygen with goal spo2 > 92%, may need continuous home oxygen on discharge 08/19: -At baseline oxygen of 2L Code(s): J96.01 - ACUTE RESPIRATORY FAILURE WITH HYPOXIA (3) COPD with exacerbation Current Visit: Yes Status: Acute Assessment & Plan: -see pneumonia/sepsis Code(s): J44.1 - CHRONIC OBSTRUCTIVE PULMONARY DISEASE W (ACUTE) EXACERBATION (4) Pneumonia Current Visit: Yes Status: Acute Assessment & Plan: -Supplemental oxygen with goal spo2 > 92%, baseline 2L -LA WNL, procal elevated, blood/sputum cultures pending -Resp viral panel negative, h/o RSV with hospitalization 6 days ago -Consult pulm -Ceftriaxone with Azithromycin continued, consider change pending CT result/pulm recs -analgesics -CT chest improved with clearing previous bilateral groundglass airspace opacities with minimal residual still present. Grossly stable bilateral mid to lower lung subsegmental atelectasis., -pt at risk for aspiration/ currently on thickened liquids at baseline Code(s): J18.9 - PNEUMONIA, UNSPECIFIED ORGANISM (5) Leukocytosis, unspecified Current Visit: No Status: Acute Qualifiers: -WBC trending down Assessment & Plan: -2/2 to pneumonia - see above Code(s): D72.829 - ELEVATED WHITE BLOOD CELL COUNT, UNSPECIFIED (6) Physical deconditioning Current Visit: No Status: Acute Assessment & Plan: -PT/OT evaluation Code(s): R53.81 - OTHER MALAISE (7) DM2 (diabetes mellitus, type 2) Current Visit: No Status: Chronic Qualifiers: Diabetes mellitus [facility] insulin use: with [facility] use Assessment & Plan: -Lantus/SSI -mod -Accucheck -ADA diet -A1c 6.4 VTE: Lovenox PPI: omeprazole DISPO: 1-2 days (2) Acute respiratory failure with hypoxia Current Visit: Yes Status: Acute Code(s): J96.01 - ACUTE RESPIRATORY FAILURE WITH HYPOXIA (3) COPD with exacerbation Current Visit: Yes Status: Acute Code(s): J44.1 - CHRONIC OBSTRUCTIVE PULMONARY DISEASE W (ACUTE) EXACERBATION (4) Pneumonia Current Visit: Yes Status: Acute Code(s): J18.9 - PNEUMONIA, UNSPECIFIED ORGANISM (5) Leukocytosis, unspecified Current Visit: No Status: Acute Qualifiers: Code(s): D72.829 - ELEVATED WHITE BLOOD CELL COUNT, UNSPECIFIED (6) Physical deconditioning Current Visit: No Status: Acute Code(s): R53.81 - OTHER MALAISE (7) DM2 (diabetes mellitus, type 2) Current Visit: No Status: Chronic Qualifiers: Diabetes mellitus [facility] insulin use: with [facility] use (8) Epilepsy Current Visit: Yes Status: Acute Code(s): G40.909 - EPILEPSY, UNSP, NOT INTRACTABLE, WITHOUT STATUS EPILEPTICUS
[2023-08-19 05:39] LABS: ATYPICAL LYMPHS 11 %; Eosinophil 1 % (0.00-3.0); Lymphocytes 44 % (24-44); Monocyte 2 % (0.0-12.0); Neutrophils 42 % (36.-66.); Total Cells Counted 100
[2023-08-19 05:40] LABS: ANISOCYTOSIS 1+; Hypochromia 1+; Platelet Estimate NORMAL (NORMAL)
[2023-08-19] MEDS: Advair Hfa 115/21 Common canister IH SCH ×2 (07:01→19:19)
[2023-08-19] MEDS: Spiriva 18 Mcg/Cap Inhaler IH SCH (07:01)
[2023-08-19] MEDS: HUMALOG SQ PRN ×3 (08:26→16:15)
[2023-08-19] MEDS: Protonix 40MG Tablet PO SCH ×2 (08:27→16:06)
[2023-08-19] MEDS: Miralax Powder 17GM PACKET PO SCH (09:18)
[2023-08-19] MEDS: ENOXAPARIN SODIUM SQ SCH (09:24)
[2023-08-19] MEDS: CLARITIN 10 MG PO SCH (09:24)
[2023-08-19] MEDS: ECOTRIN 81 MG PO SCH (09:24)
[2023-08-19] MEDS: THERAGRAN MULTIVITAMIN PO SCH (09:25)
[2023-08-19] MEDS: Docusate Sodium 100 MG PO SCH ×2 (09:25→23:05)
[2023-08-19] MEDS: Calcium 500MG W/Vit D Tablet PO SCH (09:25)
[2023-08-19] MEDS: Ditropan XL 5 MG PO SCH (09:26)
[2023-08-19] MEDS: Cymbalta 30 MG Capsule PO SCH ×2 (09:26→23:02)
[2023-08-19] MEDS: NEURONTIN PO SCH ×3 (09:27→23:03)
[2023-08-19] MEDS: MYSOLINE 50MG PO SCH ×3 (09:28→23:05)
[2023-08-19] MEDS: Lantus Insulin SQ SCH (09:28)
[2023-08-19] MEDS: JARDIANCE PO SCH (09:31)
[2023-08-19] MEDS: Lotrisone Cream TOP SCH ×2 (09:33→23:36)
[2023-08-19] MEDS: PATIENT OWN MEDICATION PO SCH ×4 (09:34→23:07)
[2023-08-19] MEDS: THEOPHYLLINE ER 24HR PO SCH ×2 (09:35→23:34)
[2023-08-19] MEDS: Wellbutrin XL 150 MG PO SCH ×2 (09:36→23:06)
[2023-08-19] MEDS: Mucomyst 200 MG/ML IH SCH (10:42)
[2023-08-19] MEDS: Flomax 0.4 MG PO SCH (23:03)
[2023-08-19] MEDS: ZOCOR 20MG PO SCH (23:04)
[2023-08-19] MEDS: ROCEPHIN 1 Gm-D5w 50 ml Bag** 1 G/50 ML IVPB IV SCH (23:10)
[2023-08-19] MEDS: Zithromax 500 MG/ 250 ML NaCl Premix 500 MG/250 ML IVPB IV SCH (23:45)
[2023-08-20] MEDS: PROVENTIL 2.5 MG/3 ML NEB IH SCH ×3 (01:31→12:52)
--- NOTE | 2023-08-20 05:08 | PCM.NOTE ---
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 Recent admission at another facility for RSV six days ago. On presentation (EMS)patient febrile temp reported by EMS at 102, hypoxic with spo2 @ 88%, and tachycardic. CXR demonstrating pneumonia. CT chest with clearing of previous bilateral groundglass opacities with minimal residual. Patient admitted acute respiratory failure/Sepsis with hypoxia 2/2 to pneumonia. Inpatient tr eatment with supportive therapies, Rocephin and azithromycin. Dyspnea and cough have improved. At baseline oxygen of 2L. OBJECTIVE DATA Vital Signs: Vital Signs - 24 hr Temp Pulse Resp BP Pulse Ox 08/20/23 04:00 98.1 F 80 20 126/59 97 08/20/23 02:00 88 08/20/23 01:33 92 L 08/19/23 23:59 98.6 F 92 H 19 120/61 94 L 08/19/23 19:48 98.5 F 95 H 18 118/66 98 08/19/23 19:22 91 H 20 92 L 08/19/23 16:00 97.8 F 94 H 19 103/49 92 L 08/19/23 13:22 94 H 22 95 08/19/23 12:00 98.0 F 73 19 113/67 96 08/19/23 07:29 97.6 F 74 16 119/56 95 08/19/23 07:03 74 16 95 Pain Assessment - Last Documented Pain Intensity 0 Intake and Output: Intake & Output 08/17/23 08/18/23 08/19/23 08/20/23 11:59 11:59 11:59 11:59 Intake Total 720 1620 1550 Output Total 1580 7665 3250 Balance -812 -2971 -6119 Weight 74.3 kg Lab Results: Lab Results-Last 24 Hours 08/19/23 08/19/23 08/19/23 Range/Units 04:13 04:13 07:39 Segmented Neutrophils 42 (36.-66.) % Lymphocytes (Manual) 44 (24-44) % Monocytes (Manual) 2 (0.0-12.0) % Eosinophils (Manual) 1 (0.00-3.0) % Atypical Lymphocytes 11 % Hypochromia 1+ Platelet Estimate NORMAL (NORMAL) RBC Morphology ABNORMAL Anisocytosis 1+ Sodium 137 (137-145) mmol/L Potassium 3.8 (3.5-5.1) mmol/L Chloride 101 (98-107) mmol/L Carbon Dioxide 30 (22-30) mmol/L Anion Gap 9.9 (5-15) MEQ/L BUN 15 (9-20) mg/dL Creatinine 0.66 (0.66-1.25) mg/dL Estimated GFR 103.4 ML/MIN Glucose 139 H (74-106) mg/dL POC Glucometer 154 H (74 to 106) mg/dL Calcium 9.2 (8.4-10.2) mg/dL Total Bilirubin 0.30 (0.2-1.3) mg/dL AST 27 (17-59) U/L ALT 27 (0-50) U/L Alkaline Phosphatase 46 (38-126) U/L Serum Total Protein 6.2 L (6.3-8.2) g/dL Albumin 3.5 (3.5-5.0) g/dL 08/19/23 08/19/23 08/19/23 Range/Units 12:00 16:06 20:40 Segmented Neutrophils (36.-66.) % Lymphocytes (Manual) (24-44) % Monocytes (Manual) (0.0-12.0) % Eosinophils (Manual) (0.00-3.0) % Atypical Lymphocytes % Hypochromia Platelet Estimate (NORMAL) RBC Morphology Anisocytosis Sodium (137-145) mmol/L Potassium (3.5-5.1) mmol/L Chloride (98-107) mmol/L Carbon Dioxide (22-30) mmol/L Anion Gap (5-15) MEQ/L BUN (9-20) mg/dL Creatinine (0.66-1.25) mg/dL Estimated GFR ML/MIN Glucose (74-106) mg/dL POC Glucometer 292 H 283 H 388 H (74 to 106) mg/dL Calcium (8.4-10.2) mg/dL Total Bilirubin (0.2-1.3) mg/dL AST (17-59) U/L ALT (0-50) U/L Alkaline Phosphatase (38-126) U/L Serum Total Protein (6.3-8.2) g/dL Albumin (3.5-5.0) g/dL Radiology Exams: Radiology Procedures Category Date Time Status CHEST WITH CONTRAST [CT] Urgent Exams 08/18/23 10:05 Completed Multi-Disciplinary Progress Notes: Multi-Disciplinary Progress Notes 08/19/23 09:46 Case Management Note by Nadege Brand NO CHANGE IN DC PLANS- WILL RETURN HOME WITH SISTER AND [facility] [employer]ARE. PATIENT ALREADY HAS HOME O2 SET UP WITH PORTABILITY AT 2L/NC Initialized on 08/19/23 09:46 - END OF NOTE Assessment/Plan (1) Sepsis Current Visit: Yes Status: Acute Assessment & Plan: -Most likely secondary to pneumonia -Supplemental oxygen for goal spo2 > 92% -Baseline 2L continuous, patient states he usually only uses at night -Blood/sputum cultures pending -lactic WNL, procal elevated, UA pending -1L bolus given in ED -Rocephin/azithromycin started, will continue, follow cultures -MRSA nasal swab screen 08/19: -No longer meets sepsis/sirs criteria -WBC trending down -Blood cultures NGTD -CT showing Lungs improved with clearing previous bilateral groundglass airspace opacities with minimal residual still present. Grossly stable bilateral mid to lower lung subsegmental atelectasis. (2) Acute respiratory failure with hypoxia Current Visit: Yes Status: Acute Assessment & Plan: -secondary to pneumonia, treat underlying cause, supplemental oxygen with goal spo2 > 92%, may need continuous home oxygen on discharge 08/19: -At baseline oxygen of 2L Code(s): J96.01 - ACUTE RESPIRATORY FAILURE WITH HYPOXIA (3) COPD with exacerbation Current Visit: Yes Status: Acute Assessment & Plan: -see pneumonia/sepsis Code(s): J44.1 - CHRONIC OBSTRUCTIVE PULMONARY DISEASE W (ACUTE) EXACERBATION (4) Pneumonia Current Visit: Yes Status: Acute Assessment & Plan: -Supplemental oxygen with goal spo2 > 92%, baseline 2L -LA WNL, procal elevated, blood/sputum cultures pending -Resp viral panel negative, h/o RSV with hospitalization 6 days ago -Consult pulm -Ceftriaxone with Azithromycin continued, consider change pending CT result/pulm recs -analgesics -CT chest improved with clearing previous bilateral groundglass airspace opacities with minimal residual still present. Grossly stable bilateral mid to lower lung subsegmental atelectasis., -pt at risk for aspiration/ currently on thickened liquids at baseline Code(s): J18.9 - PNEUMONIA, UNSPECIFIED ORGANISM (5) Leukocytosis, unspecified Current Visit: No Status: Acute Qualifiers: -WBC trending down Assessment & Plan: -2/2 to pneumonia - see above Code(s): D72.829 - ELEVATED WHITE BLOOD CELL COUNT, UNSPECIFIED (6) Physical deconditioning Current Visit: No Status: Acute Assessment & Plan: -PT/OT evaluation Code(s): R53.81 - OTHER MALAISE (7) DM2 (diabetes mellitus, type 2) Current Visit: No Status: Chronic Qualifiers: Diabetes mellitus snf insulin use: with snf use Assessment & Plan: -Lantus/SSI -mod -Accucheck -ADA diet -A1c 6.4 VTE: Lovenox PPI: omeprazole DISPO: 1-2 days (2) Acute respiratory failure with hypoxia Current Visit: Yes Status: Acute Code(s): J96.01 - ACUTE RESPIRATORY FAILURE WITH HYPOXIA (3) COPD with exacerbation Current Visit: Yes Status: Acute Code(s): J44.1 - CHRONIC OBSTRUCTIVE PULMONARY DISEASE W (ACUTE) EXACERBATION (4) Pneumonia Current Visit: Yes Status: Acute Code(s): J18.9 - PNEUMONIA, UNSPECIFIED ORGANISM (5) Leukocytosis, unspecified Current Visit: No Status: Acute Qualifiers: Code(s): D72.829 - ELEVATED WHITE BLOOD CELL COUNT, UNSPECIFIED (6) Physical deconditioning Current Visit: No Status: Acute Code(s): R53.81 - OTHER MALAISE (7) DM2 (diabetes mellitus, type 2) Current Visit: No Status: Chronic Qualifiers: Diabetes mellitus [employer] insulin use: with snf use (8) Epilepsy Current Visit: Yes Status: Acute Code(s): G40.909 - EPILEPSY, UNSP, NOT INTRACTABLE, WITHOUT STATUS EPILEPTICUS
[2023-08-20 06:28] LABS: Hematocrit 36.6 % (42-50); Hemoglobin 11.4 g/dL (12.5-18.0); Mean Cell Volume 90.8 fL (78-100); Mean Corpuscular Hemoglobin 28.3 pg (26-32); Mean Corpuscular Hgb Concent. 31.1 g/dL (32-36); Mean Platelet Volume 9.5 fL (7.5-11.0); Platelet Count 234 x10^3/uL (150-450); Red Blood Count 4.03 x10^6/uL (4.1-5.6); Red Cell Distribution Width 14.7 % (11.5-14.0)
[2023-08-20 06:57] LABS: ALBUMIN 3.7 g/dL (3.5-5.0); ANION GAP 11.3 MEQ/L (5-15); BILIRUBIN,TOTAL 0.3 mg/dL (0.2-1.3); Calcium 9.6 mg/dL (8.4-10.2); Creatinine 1 0.65 mg/dL (0.66-1.25); EST GLOMERULAR FILTRATION RATE 103.9 ML/MIN; Potassium 4.1 mmol/L (3.5-5.1); Total Protein 6.6 g/dL (6.3-8.2)
[2023-08-20] MEDS: Advair Hfa 115/21 Common canister IH SCH (07:12)
[2023-08-20] MEDS: Spiriva 18 Mcg/Cap Inhaler IH SCH (07:12)
[2023-08-20 08:33] LABS: Eosinophil 2 % (0.00-3.0); Lymphocytes 47 % (24-44); Monocyte 3 % (0.0-12.0); Neutrophils 48 % (36.-66.); Total Cells Counted 100
[2023-08-20 08:34] LABS: Platelet Estimate NORMAL (NORMAL)
[2023-08-20] MEDS: Protonix 40MG Tablet PO SCH (08:36)
[2023-08-20] MEDS: HUMALOG SQ PRN ×2 (08:37→12:04)
[2023-08-20] MEDS: Miralax Powder 17GM PACKET PO SCH (09:54)
[2023-08-20] MEDS: Lantus Insulin SQ SCH (09:58)
[2023-08-20] MEDS: ENOXAPARIN SODIUM SQ SCH (09:58)
[2023-08-20] MEDS: Ditropan XL 5 MG PO SCH (09:58)
[2023-08-20] MEDS: NEURONTIN PO SCH (09:59)
[2023-08-20] MEDS: ECOTRIN 81 MG PO SCH (10:00)
[2023-08-20] MEDS: THERAGRAN MULTIVITAMIN PO SCH (10:01)
[2023-08-20] MEDS: Docusate Sodium 100 MG PO SCH (10:01)
[2023-08-20] MEDS: CLARITIN 10 MG PO SCH (10:01)
[2023-08-20] MEDS: PATIENT OWN MEDICATION PO SCH ×2 (10:01→10:06)
[2023-08-20] MEDS: Calcium 500MG W/Vit D Tablet PO SCH (10:01)
[2023-08-20] MEDS: Cymbalta 30 MG Capsule PO SCH (10:01)
[2023-08-20] MEDS: MYSOLINE 50MG PO SCH (10:01)
[2023-08-20] MEDS: Lotrisone Cream TOP SCH (10:03)
[2023-08-20] MEDS: THEOPHYLLINE ER 24HR PO SCH (10:04)
[2023-08-20] MEDS: JARDIANCE PO SCH (10:04)
--- NOTE | 2023-08-20 12:31 | PCM.DS ---
Discharge Summary Date of Admission: 08/18/23 10:00 Date of Discharge: 08/20/23 Admitting Physician: KALPANA ESPARZA DO Consults: Consults on Case 08/18/23 10:04 Consult Pulmonology ROUTINE Primary Care Provider: FELISHA NAVAS Allergies Allergies adhesive tape Allergy (Verified 08/17/23 22:29) bee venom protein (honey bee) Allergy (Verified 08/17/23 22:29) Penicillins Allergy (Verified 08/17/23 22:29) poison jarrett extract Allergy (Verified 08/17/23 22:29) Hospital Summary - Hospital Course Hospital Course: Mr Bell is a 68 year old male with a pmhx of epilepsy, peripheral neuropathy, HLD, COPD(baseline oxygen 2L QHS), asthma, DMII, DDD, OA, depression, BPH, GERD, and head injury (age 8 with resiual motor/cognitive deficits) presented to ED 08/17/23 via EMS with worsening shortness of breath, fever, and hypoxia with sats at 88%. Recent admission at another facility for RSV six days ago. On presentation (EMS)patient febrile temp reported by EMS at 102, hypoxic with spo2 @ 88%, and tachycardic. CXR demonstrating pneumonia. EKG with sinus tach, non- specific ST changes. Patient admitted acute respiratory failure/Sepsis with hypoxia 2/2 to pneumonia. IP treatment with supportive therapies, Rocephin and azithromycin. Dyspnea and cough have improved, now back to baseline oxygen. Labs stabilizing. Will need to follow up with PCP/pulm as op. Did discuss concern for aspiration and the importance of compliance with thickened liquids as prescribed. Will discharge on cepdoxime/prednisone. Patient has home oxygen. Discharge Note New Diagnosis: pneumonia New Medications:cefpodoxime Follow Up: pcp/pulm Latest Assessment & Plan (1) Sepsis Current Visit: Yes Status: Acute Assessment & Plan: -Most likely secondary to pneumonia -Supplemental oxygen for goal spo2 > 92% -Baseline 2L continuous, patient states he usually only uses at night -Blood/sputum cultures pending -lactic WNL, procal elevated, UA pending -1L bolus given in ED -Rocephin/azithromycin started, will continue, follow cultures -MRSA nasal swab screen 08/19: -No longer meets sepsis/sirs criteria -WBC trending down -Blood cultures NGTD -CT showing Lungs improved with clearing previous bilateral groundglass airspace opacities with minimal residual still present. Grossly stable bilateral mid to lower lung subsegmental atelectasis. (2) Acute respiratory failure with hypoxia Current Visit: Yes Status: Acute Assessment & Plan: -secondary to pneumonia, treat underlying cause, supplemental oxygen with goal spo2 > 92%, may need continuous home oxygen on discharge 08/19: -At baseline oxygen of 2L Code(s): J96.01 - ACUTE RESPIRATORY FAILURE WITH HYPOXIA (3) COPD with exacerbation Current Visit: Yes Status: Acute Assessment & Plan: -see pneumonia/sepsis Code(s): J44.1 - CHRONIC OBSTRUCTIVE PULMONARY DISEASE W (ACUTE) EXACERBATION (4) Pneumonia Current Visit: Yes Status: Acute Assessment & Plan: -Supplemental oxygen with goal spo2 > 92%, baseline 2L -LA WNL, procal elevated, blood/sputum cultures pending -Resp viral panel negative, h/o RSV with hospitalization 6 days ago -Consult pulm -Ceftriaxone with Azithromycin continued, consider change pending CT result/pulm recs -analgesics -CT chest improved with clearing previous bilateral groundglass airspace opacities with minimal residual still present. Grossly stable bilateral mid to lower lung subsegmental atelectasis., -pt at risk for aspiration/ currently on thickened liquids at baseline Code(s): J18.9 - PNEUMONIA, UNSPECIFIED ORGANISM (5) Leukocytosis, unspecified Current Visit: No Status: Acute Qualifiers: -WBC trending down Assessment & Plan: -2/2 to pneumonia - see above Code(s): D72.829 - ELEVATED WHITE BLOOD CELL COUNT, UNSPECIFIED (6) Physical deconditioning Current Visit: No Status: Acute Assessment & Plan: -PT/OT evaluation Code(s): R53.81 - OTHER MALAISE (7) DM2 (diabetes mellitus, type 2) Current Visit: No Status: Chronic Qualifiers: Diabetes 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 - Vitals & Intake/Output Vital Signs: Vital Signs Temperature 97.9 F 08/20/23 07:24 Pulse Rate 76 08/20/23 07:24 Respiratory Rate 16 08/20/23 07:24 Blood Pressure 110/66 08/20/23 07:24 O2 Sat by Pulse Oximetry 91 L 08/20/23 07:24 Intake & Output: Intake & Output 08/18/23 08/19/23 08/20/23 08/21/23 11:59 11:59 11:59 11:59 Intake Total 720 1620 1670 Output Total 1583 4348 3876 Balance -645 -9536 -2432 Weight 74.3 kg - Lab Result Diagrams: 08/20/23 06:25 08/20/23 06:25 Lab Results-Last 24 Hrs: Lab Results-Last 24 Hours 08/19/23 08/19/23 08/20/23 Range/Units 16:06 20:40 06:25 WBC 15.0 H (4.0-10.5) x10^3/uL RBC 4.03 L (4.1-5.6) x10^6/uL Hgb 11.4 L (12.5-18.0) g/dL Hct 36.6 L (42-50) % MCV 90.8 (78-100) fL MCH 28.3 (26-32) pg MCHC 31.1 L (32-36) g/dL RDW 14.7 H (11.5-14.0) % Plt Count 234 (150-450) x10^3/uL MPV 9.5 (7.5-11.0) fL Segmented Neutrophils 48 (36.-66.) % Lymphocytes (Manual) 47 H (24-44) % Monocytes (Manual) 3 (0.0-12.0) % Eosinophils (Manual) 2 (0.00-3.0) % Platelet Estimate NORMAL (NORMAL) RBC Morphology NORMAL Sodium (137-145) mmol/L Potassium (3.5-5.1) mmol/L Chloride (98-107) mmol/L Carbon Dioxide (22-30) mmol/L Anion Gap (5-15) MEQ/L BUN (9-20) mg/dL Creatinine (0.66-1.25) mg/dL Estimated GFR ML/MIN Glucose (74-106) mg/dL POC Glucometer 283 H 388 H (74 to 106) mg/dL Calcium (8.4-10.2) mg/dL Total Bilirubin (0.2-1.3) mg/dL AST (17-59) U/L ALT (0-50) U/L Alkaline Phosphatase (38-126) U/L Serum Total Protein (6.3-8.2) g/dL Albumin (3.5-5.0) g/dL 08/20/23 08/20/23 08/20/23 Range/Units 06:25 07:15 11:37 WBC (4.0-10.5) x10^3/uL RBC (4.1-5.6) x10^6/uL Hgb (12.5-18.0) g/dL Hct (42-50) % MCV (78-100) fL MCH (26-32) pg MCHC (32-36) g/dL RDW (11.5-14.0) % Plt Count (150-450) x10^3/uL MPV (7.5-11.0) fL Segmented Neutrophils (36.-66.) % Lymphocytes (Manual) (24-44) % Monocytes (Manual) (0.0-12.0) % Eosinophils (Manual) (0.00-3.0) % Platelet Estimate (NORMAL) RBC Morphology Sodium 138 (137-145) mmol/L Potassium 4.1 (3.5-5.1) mmol/L Chloride 102 (98-107) mmol/L Carbon Dioxide 30 (22-30) mmol/L Anion Gap 11.3 (5-15) MEQ/L BUN 16 (9-20) mg/dL Creatinine 0.65 L (0.66-1.25) mg/dL Estimated GFR 103.9 ML/MIN Glucose 150 H (74-106) mg/dL POC Glucometer 211 H 252 H (74 to 106) mg/dL Calcium 9.6 (8.4-10.2) mg/dL Total Bilirubin 0.30 (0.2-1.3) mg/dL AST 26 (17-59) U/L ALT 28 (0-50) U/L Alkaline Phosphatase 47 (38-126) U/L Serum Total Protein 6.6 (6.3-8.2) g/dL Albumin 3.7 (3.5-5.0) g/dL Micro Results-Entire Visit: Microbiology 08/19/23 09:56 Gram Stain - Final Sputum - Aerosol Induced 08/17/23 23:31 Blood Culture - Preliminary Blood 08/17/23 23:31 Blood Culture - Preliminary Blood Accuchecks Date 08/20/23 Date 08/20/23 Date 08/19/23 Time 21:00 - Procedures and Test Procedures and Tests throughout Hospitalization: Therapy Orders & Screens 08/17/23 23:18 Respiratory Therapy Assessment DAILY Comment: 08/18/23 00:13 EKG REPEAT IN AM Comment: 08/18/23 00:17 Oxygen Nasal Cannula 4 lpm Comment: Respiratory Therapy Consult ONCE Comment: Reason For Exam: 08/18/23 02:24 RT Screen per Nursing Assess ONCE Comment: Protocol Order Physician Instructions: Greater than 3 points order RT Admission Screen Reason For Exam: Triggered on Admission Diagnosis: Pneumonia; dyspnea Diagnosis: Pneumonia; dyspnea Pneumonia: Yes Home O2: Yes Home Nebs/MDI: Yes Total Points: 13 ST Screen per Nursing Assess ONCE Comment: Protocol Order Physician Instructions: Greater than [address] Admission Screening Reason For Exam: Triggered on Admission Diagnosis: Pneumonia; dyspnea CVA/Dyshpagia/Aphasia: No Cognitive Deficits: Yes Dehydration/Nutrition Deficit: No Reflux: No Oral-Motor Difficulties: Yes Pneumonia: Yes Long Term Resident: No Total Points: 08/18/23 03:50 ST Screen per Nursing Assess ONCE Comment: Protocol Order Physician Instructions: Greater than [address] Admission Screening Reason For Exam: Triggered on Admission Diagnosis: Pneumonia; dyspnea CVA/Dyshpagia/Aphasia: No Cognitive Deficits: Yes Dehydration/Nutrition Deficit: No Reflux: No Oral-Motor Difficulties: Yes Pneumonia: Yes Long Term Resident: No Total Points: 08/18/23 08:57 Incentive Spirometry Q1H Comment: Diagnosis: Pneumonia; dyspnea 08/18/23 14:12 Incentive Spirometry TID Comment: Diagnosis: Pneumonia; dyspnea 08/19/23 09:48 PT Eval & Treat (MD Order) ONCE Reason for Eval:: weakness Diagnosis: Pneumonia; dyspnea Discharge Exam General Appearance: no apparent distress Neurologic Exam: alert, oriented x 3, cooperative Eye Exam: PERRL Ears, Nose, Throat Exam: normal ENT inspection Neck Exam: normal inspection Respiratory Exam: crackles/rales, wheezing Cardiovascular Exam: regular rate/rhythm, normal heart sounds Gastrointestinal/Abdomen Exam: soft, normal bowel sounds Male Genitalia Exam: deferred Rectal Exam: deferred Back Exam: normal inspection Extremity Exam: normal inspection Skin Exam: normal color Final Diagnosis/Problem List - Final Discharge Diagnosis/Problem (1) Sepsis Current Visit: Yes Status: Acute (2) Acute respiratory failure with hypoxia Current Visit: Yes Status: Acute Code(s): J96.01 - ACUTE RESPIRATORY FAILURE WITH HYPOXIA (3) COPD with exacerbation Current Visit: Yes Status: Acute Code(s): J44.1 - CHRONIC OBSTRUCTIVE PULMONARY DISEASE W (ACUTE) EXACERBATION (4) Pneumonia Current Visit: Yes Status: Acute Code(s): J18.9 - PNEUMONIA, UNSPECIFIED ORGANISM (5) Leukocytosis, unspecified Current Visit: No Status: Acute Code(s): D72.829 - ELEVATED WHITE BLOOD CELL COUNT, UNSPECIFIED (6) Physical deconditioning Current Visit: No Status: Acute Code(s): R53.81 - OTHER MALAISE (7) DM2 (diabetes mellitus, type 2) Current Visit: No Status: Chronic (8) Epilepsy Current Visit: Yes Status: Acute Code(s): G40.909 - EPILEPSY, UNSP, NOT INTRACTABLE, WITHOUT STATUS EPILEPTICUS - Discharge Disposition: Home, Self-Care Condition: Stable Prescriptions: New Prednisone 20 mg [Deltasone 20 mg] 20 mg PO DAILY 5 Days #5 tablet Cefpodoxime Proxetil 200 mg [Vantin 200 mg] 200 mg PO BID 7 Days #14 tablet Continue Omeprazole 40 mg PO BIDAC Primidone 50 MG [Mysoline 50Mg] 50 mg PO TID Duloxetine HCl [Cymbalta] 60 mg PO BID Divalproex Sodium [Depakote] 1,000 mg PO BID Multivitamin [Multivitamins] 1 cap PO DAILY Loratadine 10 mg PO DAILY Atorvastatin Calcium 40 mg PO HS Maltodextrin/Xanthan Gum [Thicken Up Clear Powder Packet] 1 packet PO ACHS EPINEPHrine [Epipen 2-Jeffery] 0.3 mg IM UD PRN PRN Reason: allergic reaction Aspirin 81 mg PO DAILY Gabapentin [Neurontin ] 300 mg PO TID capsule Acetaminophen 500 mg [Tylenol Extra Strength 500 mg] 500 mg PO TID Docusate Sodium 100 mg [Docusate Sodium 100 MG] 100 mg PO BID Acarbose [Precose] 50 mg PO TID Cholecalciferol (Vitamin D3) [Vitamin D] 1,000 unit PO DAILY Theophylline Anhydrous [Theophylline ER 24Hr] 400 mg PO BID Calcium Carbonate/Vitamin D3 [Calcium 600 mg-D3 10 Mcg Sfgl] 1 tab PO DAILY Tamsulosin HCl 0.4 mg [Flomax 0.4 MG] 0.4 mg PO HS Albuterol Sulfate 0.63 mg IH TID Insulin Glargine,Hum.rec.anlog [Lantus] 12 unit SQ QAM Levomefolate/Algal Oil [l-Methylfolate Forte 7.5 mg Cp] 1 cap PO BID Oxybutynin Chloride [Oxybutynin Chloride ER] 10 mg PO DAILY Polyethylene Glycol 3350 17 gm [Miralax Powder 17GM PACKET] 17 gm PO DAILY Bupropion HCl Xl 150 mg [Wellbutrin XL 150 MG] 150 mg PO DAILY Acetylcysteine IV 200 mg/ml [Acetadote IV 200 MG/ML] 100 mg IH QID Empagliflozin [Jardiance] 10 mg PO DAILY Dextromethorphan HBr 15 mg PO BID Albuterol Sulfate [Albuterol Sulfate Hfa] 90 mcg IH BID Tiotropium [place] Inhaler [Spiriva 18 Mcg/Cap Inhaler] 1 cap IH DAILY Albuterol Sulfate [Proair Digihaler] 2 puff IH QID Insulin Lispro [Humalog] 1 unit SQ UD glucagon HCL [Glucagon Emergency Kit] 1 mg SQ UD Cholecalciferol (Vitamin D3) [Vitamin D3] 25 mcg PO DAILY Clotrimazole/Betamethasone Dip [Clotrimazole-Betamethasone Lot] 1 applic TOP BIDPRN PRN PRN Reason: Redness/Irritation Instructions: Pneumonia, Adult (DC) Follow up with: [facility] [ACTIVE STAFF] - 09/08/23 3:30 pm ([facility]) FELISHA NAVAS MD [Primary Care Provider] - 08/27/23 11:00 am Forms: Discharge Instructions
[2023-08-20 12:56] VITALS: PULSE 93; RESP 18; O2SAT 94
[2023-08-20 13:41] VITALS: BP 117/66; TEMP 98.1
== END 2023-08-20 14:10 | disposition home or self-care (01) | DRG 871 ==
LOC: ED 22:18 → MED SURG 08-18 01:14 → OBSVTOIN 08-18 10:00
PROVIDERS: ADMIT Internal Medicine; ATTEND Internal Medicine
DX: A41.9 Sepsis, unspecified organism (principal); J18.9 Pneumonia, unspecified organism; J96.01 Acute respiratory failure with hypoxia; J44.1 Chronic obstructive pulmonary disease with (acute) exacerbation; D72.829 Elevated white blood cell count, unspecified; R53.81 Other malaise; E11.9 Type 2 diabetes mellitus without complications; G40.909 Epilepsy, unspecified, not intractable, without status epilepticus; K21.9 Gastro-esophageal reflux disease without esophagitis; N40.0 Benign prostatic hyperplasia without lower urinary tract symptoms; E78.5 Hyperlipidemia, unspecified; Z79.899 Other long term (current) drug therapy; Z20.828 Contact with and (suspected) exposure to other viral communicable diseases; Z87.820 Personal history of traumatic brain injury
CPT/HCPCS: 0241U; 36000; 36415; 71046; 71260; 80053; 82947; 83036; 83605; 83735; 84145; 84484; 85025; 87040; 87070; 87641; 93005; 93041; 94640; 94760; 94762; 97161; 99285; Q3014; J0456; J0696; J1650; J1817; J7609; A9270-GY

== ENCOUNTER 2024-01-01 21:38 | Emergency (ER) | payer MEDICARE ==
[2024-01-01 22:10] VITALS: TEMP 98.1
[2024-01-01] MEDS ORDERED: DUONEB 0.5-3 MG/3 ml Neb IH ONE (22:16)
[2024-01-01] MEDS: DUONEB 0.5-3 MG/3 ml Neb IH ONE (22:20)
[2024-01-01 22:24] VITALS: O2SAT 94
[2024-01-01 22:47] LABS: Absolute Neutrophil Ct (ANC) 7.77 x10^3/uL (1.78-5.38); BASOPHIL % 0.1 % (0.2-1.2); Basophil (Absolute #) 0.01 x10^3/uL (0.01-0.08); Eosinophil (Absolute #) 0 x10^3/uL (0.04-0.54); Hematocrit 39.6 % (40.1-51.0); Hemoglobin 12.6 g/dL (13.7-17.5); IMMATURE GRAN # 0.04 x10^3u/L (0.001-0.031); IMMATURE GRAN % 0.4 % (0.001-0.429); Lymphocyte (Absolute #) 2.58 x10^3/uL (1.32-3.57); Lymphocytes % 23.9 % (21.8-53.1); Mean Cell Volume 92.7 fL (79.0-92.2); Mean Corpuscular Hemoglobin 29.5 pg (25.7-32.2); Mean Corpuscular Hgb Concent. 31.8 g/dL (32.3-36.5); Mean Platelet Volume 11.3 fL (9.4-12.4); Monocytes % 3.7 % (5.3-12.2); Neutrophil % 71.9 % (34.0-67.9); Platelet Count 165 x10^3/uL (163-337); Red Blood Count 4.27 x10^6/uL (4.63-6.08); Red Cell Distribution Width 14.9 % (11.6-14.4); White Blood Count 10.8 x10^3/uL (4.23-9.07)
[2024-01-01 22:53] VITALS: RESP 17
[2024-01-01 23:03] VITALS: BP 136/62; PULSE 86
[2024-01-01 23:13] LABS: ALBUMIN 4.3 g/dL (3.5-5.0); BILIRUBIN,TOTAL 0.4 mg/dL (0.2-1.3); Calcium 9.7 mg/dL (8.4-10.2); Creatinine 1 0.76 mg/dL (0.66-1.25); EST GLOMERULAR FILTRATION RATE 99.1 ML/MIN; MAGNESIUM 2.3 mg/dL (1.6-2.3); Potassium 4.3 mmol/L (3.5-5.1); Total Protein 7.1 g/dL (6.3-8.2)
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
--- NOTE | 2024-01-02 08:28 | XRAY ---
Indication: Cough. Comparison: December 20, 2023 Portable chest unchanged again demonstrating minimal bibasilar discoid atelectasis/scarring. Remaining heart and lungs unremarkable. No new/acute findings.
== END 2024-01-01 23:51 | disposition home or self-care (01) ==
LOC: ED 21:38
DX: J44.0 Chronic obstructive pulmonary disease with (acute) lower respiratory infection (principal); J20.9 Acute bronchitis, unspecified; R05.9 Cough, unspecified; R53.1 Weakness; R53.83 Other fatigue; E78.5 Hyperlipidemia, unspecified; E11.42 Type 2 diabetes mellitus with diabetic polyneuropathy; Z79.4 Long term (current) use of insulin; Z79.84 Long term (current) use of oral hypoglycemic drugs; Z79.899 Other long term (current) drug therapy
CPT/HCPCS: 36415; 71045; 80053; 83605; 83735; 83880; 84484; 85025; 87040; 94640; 99283; A9270-GY

== ENCOUNTER 2024-01-20 00:18 | Emergency (ER) | payer MEDICARE ==
[2024-01-20 00:25] VITALS: TEMP 98.9
[2024-01-20 00:46] LABS: Absolute Neutrophil Ct (ANC) 9.17 x10^3/uL (1.78-5.38); BASOPHIL % 0.3 % (0.2-1.2); Basophil (Absolute #) 0.04 x10^3/uL (0.01-0.08); Eosinophil % 1.6 % (0.8-7.0); Eosinophil (Absolute #) 0.23 x10^3/uL (0.04-0.54); Hematocrit 41.9 % (40.1-51.0); Hemoglobin 13.4 g/dL (13.7-17.5); IMMATURE GRAN # 0.05 x10^3u/L (0.001-0.031); IMMATURE GRAN % 0.4 % (0.001-0.429); Lymphocytes % 27.8 % (21.8-53.1); Mean Cell Volume 93.3 fL (79.0-92.2); Mean Corpuscular Hemoglobin 29.8 pg (25.7-32.2); Mean Platelet Volume 10.1 fL (9.4-12.4); Monocyte (Absolute #) 0.66 x10^3/uL (0.30-0.82); Monocytes % 4.7 % (5.3-12.2); Neutrophil % 65.2 % (34.0-67.9); Platelet Count 147 x10^3/uL (163-337); Red Blood Count 4.49 x10^6/uL (4.63-6.08); Red Cell Distribution Width 14.4 % (11.6-14.4); White Blood Count 14.1 x10^3/uL (4.23-9.07)
[2024-01-20 00:58] LABS: PROTIME 10.9 SECONDS (9.4-12.5); PTT 30.4 SECONDS (25.1-36.5)
[2024-01-20 01:06] LABS: ALBUMIN 3.9 g/dL (3.5-5.0); ANION GAP 10.6 MEQ/L (5-15); BILIRUBIN,TOTAL 0.3 mg/dL (0.2-1.3); Calcium 9.5 mg/dL (8.4-10.2); Creatinine 1 0.75 mg/dL (0.66-1.25); EST GLOMERULAR FILTRATION RATE 99.5 ML/MIN; NT PRO BNPII 51.8 pg/mL (<300); Total Protein 6.6 g/dL (6.3-8.2)
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
[2024-01-20] MEDS ORDERED: DUONEB 0.5-3 MG/3 ml Neb IH ONE (01:19)
[2024-01-20] MEDS: DUONEB 0.5-3 MG/3 ml Neb IH ONE (01:22)
[2024-01-20 01:25] LABS: INFLUENZA A NEGATIVE (NEGATIVE); INFLUENZA B NEGATIVE (NEGATIVE); RESPIRATORY SYNCTIAL VIRUS NEGATIVE (NEGATIVE); SARS-CoV-2 Xpert Express NEGATIVE (NEGATIVE)
[2024-01-20 02:10] LABS: ADD URINE CULTURE? NO (NO); Appearance Clear (Clear); Bacteria None Seen /HPF (None Seen); Bilirubin Negative (Negative); Blood Negative (Negative); Epithelial Cells None Seen /HPF (None Seen); Glucose, Urine >=1000 mg/dL (Negative); Hyaline Casts NONE SEEN /LPF (0-2); Ketones 15 (Negative); Leukocyte Esterase Negative (Negative); Nitrite Negative (Negative); Protein,Urine Dip Negative (Negative); RBC 0-2 /HPF (0-5); Specific Gravity >=1.030 (1.005-1.030)
[2024-01-20 02:32] VITALS: BP 114/75; PULSE 88; RESP 12
[2024-01-20 02:36] VITALS: O2SAT 95
--- NOTE | 2024-01-20 09:03 | XRAY ---
Indication: Lethargy. Comparison: January 01, 2024 Portable chest unchanged again demonstrating bibasilar discoid atelectasis/scarring. Remaining heart and upper lungs unremarkable. Bony thorax intact again with osteopenia and mild degenerative changes. No new/acute findings.
== END 2024-01-20 03:00 | disposition home or self-care (01) ==
LOC: ED 00:18
DX: R68.83 Chills (without fever) (principal); E78.5 Hyperlipidemia, unspecified; E11.42 Type 2 diabetes mellitus with diabetic polyneuropathy; Z79.4 Long term (current) use of insulin; Z79.84 Long term (current) use of oral hypoglycemic drugs; Z79.899 Other long term (current) drug therapy; Z99.81 Dependence on supplemental oxygen
CPT/HCPCS: 0241U; 36415; 71045; 80053; 81001; 83605; 83880; 84484; 85025; 85610; 85730; 94640; 99283; A9270-GY

== ENCOUNTER 2024-05-17 20:44 | Emergency (ER) | payer MEDICARE ==
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
[2024-05-17 21:05] VITALS: TEMP 97.8
[2024-05-17 21:26] LABS: Appearance Clear (Clear); Bacteria None Seen /HPF (None Seen); Bilirubin Negative (Negative); Blood Negative (Negative); Epithelial Cells None Seen /HPF (None Seen); Glucose, Urine >=1000 mg/dL (Negative); Hyaline Casts NONE SEEN /LPF (0-2); Ketones Trace (Negative); Leukocyte Esterase Negative (Negative); Nitrite Negative (Negative); Protein,Urine Dip Negative (Negative); RBC 0-2 /HPF (0-5); Specific Gravity >=1.030 (1.005-1.030); WBC 0-2 /HPF (0-5)
[2024-05-17 21:39] LABS: Hemoglobin 12.6 g/dL (13.7-17.5); Mean Cell Volume 93.1 fL (79.0-92.2); Mean Corpuscular Hemoglobin 30.1 pg (25.7-32.2); Mean Corpuscular Hgb Concent. 32.3 g/dL (32.3-36.5); Mean Platelet Volume 9.9 fL (9.4-12.4); Platelet Count 152 x10^3/uL (163-337); Red Blood Count 4.19 x10^6/uL (4.63-6.08); Red Cell Distribution Width 13.7 % (11.6-14.4); White Blood Count 11.1 x10^3/uL (4.23-9.07)
[2024-05-17 21:53] LABS: ALKALINE PHOSPHATASE 56 U/L (38-126); ANION GAP 11.3 MEQ/L (5-15); BLOOD UREA NITROGEN 20 mg/dL (9-20); CHLORIDE 100 mmol/L (98-107); Calcium 9.7 mg/dL (8.4-10.2); Carbon Dioxide 33 mmol/L (22-30); EST GLOMERULAR FILTRATION RATE 93.6 ML/MIN; ETHYL ALCOHOL < 10 mg/dL (0-10); Glucose 177 mg/dL (74-106); Potassium 3.8 mmol/L (3.5-5.1); SGOT/AST 31 U/L (17-59); SGPT/ALT 26 U/L (0-50); SODIUM 140 mmol/L (135-145); Total Protein 6.9 g/dL (6.3-8.2)
[2024-05-17 22:15] LABS: INFLUENZA A NEGATIVE (NEGATIVE); INFLUENZA B NEGATIVE (NEGATIVE); RESPIRATORY SYNCTIAL VIRUS NEGATIVE (NEGATIVE); SARS-CoV-2 Xpert Express NEGATIVE (NEGATIVE)
[2024-05-17 22:41] LABS: ATYPICAL LYMPHS 2 %; Eosinophil 3 % (0.8-7.0); Lymphocytes 33 % (21.8-53.1); Monocyte 6 % (5.3-12.2); Neutrophils 56 % (34.0-67.9); Total Cells Counted 100
[2024-05-17 22:42] LABS: Platelet Estimate DECREASED (NORMAL)
[2024-05-17 22:43] LABS: ANISOCYTOSIS 1+; Macrocytosis 2+
[2024-05-17 23:35] VITALS: RESP 15
[2024-05-17] MEDS ORDERED: Sodium Chloride 0.9% 1000 ML 1,000 ML ONE (23:55)
[2024-05-17] MEDS: Sodium Chloride 0.9% 1000 ML 1,000 ML IV SCH (23:55)
[2024-05-18 01:11] VITALS: BP 104/62; PULSE 68; O2SAT 96
--- NOTE | 2024-05-18 08:43 | XRAY ---
Indication: Lethargic. Multiple contiguous axial images obtained through the head without contrast. Comparison: September 03, 2021 Again age-appropriate global atrophy and minimal periventricular degenerative micro-ischemia. No acute intracranial hemorrhage, abnormal extra-axial fluid collection, or mass effect. Fourth ventricle is midline without hydrocephalus. Bony calvarium intact. Again mild mucoperiosteal thickening both ethmoid and and lesser degree both maxillary/right sphenoid sinuses without fluid leveling. Mastoid air cells are clear. Impression: Continued nonacute senile brain. Again incidental paranasal sinus disease.
--- NOTE | 2024-05-18 08:44 | XRAY ---
Indication: Wheezing. Comparison: March 27, 2024 Portable apical lordotic chest inflated and clear again with minimal focal eventration right hemidiaphragm. Heart not enlarged. Bony thorax intact again with osteopenia, mild degenerative changes, and old right 6 rib fracture. Impression: Nonacute chest with chronic features.
== END 2024-05-18 01:51 | disposition home or self-care (01) ==
LOC: ED 20:44
DX: B27.90 Infectious mononucleosis, unspecified without complication (principal); R53.1 Weakness; R06.2 Wheezing; Z87.820 Personal history of traumatic brain injury; E11.42 Type 2 diabetes mellitus with diabetic polyneuropathy; E78.5 Hyperlipidemia, unspecified; Z79.4 Long term (current) use of insulin; Z79.84 Long term (current) use of oral hypoglycemic drugs; Z79.899 Other long term (current) drug therapy
CPT/HCPCS: 0241U; 36000; 36415; 70450; 71045; 80053; 80164; 81001; 82077; 83605; 85025; 86308; 87086; 93005; 94760; 99284; P9612

== ENCOUNTER 2024-05-18 12:35 | Inpatient (IN) | payer MEDICARE ==
[2024-05-18 13:39] LABS: Absolute Neutrophil Ct (ANC) 8.22 x10^3/uL (1.78-5.38); BASOPHIL % 0.2 % (0.2-1.2); Basophil (Absolute #) 0.02 x10^3/uL (0.01-0.08); Eosinophil % 0.5 % (0.8-7.0); Eosinophil (Absolute #) 0.06 x10^3/uL (0.04-0.54); Hematocrit 40.7 % (40.1-51.0); Hemoglobin 13.1 g/dL (13.7-17.5); IMMATURE GRAN # 0.07 x10^3u/L (0.001-0.031); IMMATURE GRAN % 0.6 % (0.001-0.429); Lymphocytes % 22.3 % (21.8-53.1); Mean Cell Volume 92.7 fL (79.0-92.2); Mean Corpuscular Hemoglobin 29.8 pg (25.7-32.2); Mean Corpuscular Hgb Concent. 32.2 g/dL (32.3-36.5); Mean Platelet Volume 10.5 fL (9.4-12.4); Monocyte (Absolute #) 0.67 x10^3/uL (0.30-0.82); Monocytes % 5.8 % (5.3-12.2); Neutrophil % 70.6 % (34.0-67.9); Platelet Count 163 x10^3/uL (163-337); Red Blood Count 4.39 x10^6/uL (4.63-6.08); Red Cell Distribution Width 13.7 % (11.6-14.4); White Blood Count 11.6 x10^3/uL (4.23-9.07)
--- NOTE | 2024-05-18 14:02 | XRAY ---
Indication: Short of breath. Comparison: One day earlier. Portable chest demonstrates new mild bibasilar infiltrates versus atelectasis, left greater than right. Remaining heart and upper lungs unremarkable.
[2024-05-18 14:05] LABS: ALBUMIN 4.3 g/dL (3.5-5.0); ANION GAP 15.7 MEQ/L (5-15); BILIRUBIN,TOTAL 0.5 mg/dL (0.2-1.3); Creatinine 1 0.86 mg/dL (0.66-1.25); EST GLOMERULAR FILTRATION RATE 94.9 ML/MIN; Potassium 4.5 mmol/L (3.5-5.1); Total Protein 7.4 g/dL (6.3-8.2)
[2024-05-18 14:18] LABS: INFLUENZA A NEGATIVE (NEGATIVE); INFLUENZA B NEGATIVE (NEGATIVE); RESPIRATORY SYNCTIAL VIRUS NEGATIVE (NEGATIVE); SARS-CoV-2 Xpert Express NEGATIVE (NEGATIVE)
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
[2024-05-18] MEDS ORDERED: DUONEB 0.5-3 MG/3 ml Neb IH ONE (15:13)
[2024-05-18] MEDS: DUONEB 0.5-3 MG/3 ml Neb IH ONE (15:18)
[2024-05-18] MEDS: VIBRAMYCIN 100 MG*** 100 MG in Dextrose 5%/Water IV Soln. 100ML PLUS BAG 100 ML IV ONE (16:25)
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
[2024-05-18 17:09] LABS: Appearance Clear (Clear); Bacteria None Seen /HPF (None Seen); Bilirubin Negative (Negative); Blood Negative (Negative); Epithelial Cells None Seen /HPF (None Seen); Glucose, Urine >=1000 mg/dL (Negative); Hyaline Casts NONE SEEN /LPF (0-2); Ketones Trace (Negative); Nitrite Negative (Negative); Ph 7.5 (4.6-8.0); Protein,Urine Dip Negative (Negative); RBC 0-2 /HPF (0-5); Specific Gravity >=1.030 (1.005-1.030); Urobilinogen 0.2 mg/dL (0.2)
[2024-05-18] MEDS ORDERED: Docusate Sodium 100 MG PO PRN (17:09)
[2024-05-18 17:13] LABS: Leukocyte Esterase Negative (Negative)
[2024-05-18] MEDS ORDERED: Lotrisone Cream TOP PRN (17:15)
[2024-05-18] MEDS ORDERED: Epinephrine Preservative Free 1 MG/ML IJ PRN (17:28)
[2024-05-18] MEDS ORDERED: MEDICATION INTERVENTION MC SCH (17:30)
[2024-05-18] MEDS: Protonix 40MG Tablet PO SCH (17:43)
[2024-05-18] MEDS ORDERED: VENTOLIN COMMON CANISTER IH SCH (19:00)
[2024-05-18] MEDS ORDERED: PROVENTIL 2.5 MG/3 ML NEB IH SCH (19:00)
[2024-05-18] MEDS: PROVENTIL 2.5 MG/3 ML NEB IH SCH (19:29)
[2024-05-18] MEDS: Advair Hfa 115/21 Common canister IH SCH (19:31)
[2024-05-18] MEDS: Flomax 0.4 MG PO SCH (20:48)
[2024-05-18] MEDS: NEURONTIN PO SCH (20:49)
[2024-05-18] MEDS: Cymbalta 30 MG Capsule PO SCH (20:49)
[2024-05-18] MEDS: MYSOLINE 50MG PO SCH (20:50)
[2024-05-18] MEDS: ZOCOR 20MG PO SCH (20:51)
[2024-05-18] MEDS: Risperdal 1 MG PO SCH (20:52)
[2024-05-18] MEDS: THEOPHYLLINE ER 24HR PO SCH (20:54)
[2024-05-18] MEDS: HUMALOG SQ PRN (21:22)
[2024-05-18] MEDS ORDERED: [UNRECOGNIZED DRUG - OTHER] PO SCH (22:00)
[2024-05-18] MEDS ORDERED: DEXTROMETHORPHAN HBR 15 MG PO SCH (22:00)
[2024-05-19] MEDS: VIBRAMYCIN 100 MG*** 100 MG in Dextrose 5%/Water IV Soln. 100ML PLUS BAG 100 ML IV SCH (05:41)
[2024-05-19 05:42] LABS: Hematocrit 37.3 % (40.1-51.0); Hemoglobin 12.1 g/dL (13.7-17.5); Mean Cell Volume 91.9 fL (79.0-92.2); Mean Corpuscular Hemoglobin 29.8 pg (25.7-32.2); Mean Corpuscular Hgb Concent. 32.4 g/dL (32.3-36.5); Mean Platelet Volume 10.5 fL (9.4-12.4); Platelet Count 177 x10^3/uL (163-337); Red Blood Count 4.06 x10^6/uL (4.63-6.08); White Blood Count 12.6 x10^3/uL (4.23-9.07)
[2024-05-19 06:32] LABS: ALBUMIN 3.8 g/dL (3.5-5.0); ANION GAP 14.6 MEQ/L (5-15); BILIRUBIN,TOTAL 0.4 mg/dL (0.2-1.3); Calcium 9.7 mg/dL (8.4-10.2); Creatinine 1 0.87 mg/dL (0.66-1.25); EST GLOMERULAR FILTRATION RATE 94.6 ML/MIN; Potassium 3.9 mmol/L (3.5-5.1); Total Protein 6.9 g/dL (6.3-8.2)
[2024-05-19] MEDS: Spiriva 18 Mcg/Cap Inhaler IH SCH (07:19)
[2024-05-19] MEDS: VITAMIN D PO SCH (10:16)
[2024-05-19] MEDS: Calcium 500MG W/Vit D Tablet PO SCH (10:16)
[2024-05-19] MEDS: FEOSOL 325 MG PO SCH (10:16)
[2024-05-19] MEDS: ECOTRIN 81 MG PO SCH (10:16)
[2024-05-19] MEDS: Ditropan XL 5 MG PO SCH (10:16)
[2024-05-19] MEDS: TYLENOL EXTRA STRENGTH 500 MG PO SCH (10:16)
[2024-05-19] MEDS: THERAGRAN MULTIVITAMIN PO SCH (10:17)
[2024-05-19] MEDS: ENOXAPARIN SODIUM SQ SCH (10:17)
[2024-05-19] MEDS: CLARITIN 10 MG PO SCH (10:17)
[2024-05-19] MEDS: Risperdal 1 MG PO SCH (10:17)
[2024-05-19] MEDS: Wellbutrin XL 150 MG PO SCH (10:18)
[2024-05-19] MEDS: ANASPAZ 0.125 MG PO PRN (10:18)
[2024-05-19] MEDS: Miralax Powder 17GM PACKET PO SCH (10:18)
[2024-05-19] MEDS: JARDIANCE PO SCH (10:19)
[2024-05-19] MEDS: DUONEB 0.5-3 MG/3 ml Neb IH SCH (10:36)
--- NOTE | 2024-05-19 11:52 | PCM.NOTE ---
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 GERD, COPD, epilepsy, depression, anxiety, and recurrent aspiration pneumonia. He presented to our ED for the second time in 24 hours. Patient was in our ED last night. Patient complained of weakness. Patient was discharged home. Patient is here with his sister again today She states that patient spiked a fever last night. Currently afebrile. Patient complains of some shortness of breath. He admits to drinking non-thickend liquids again. Sister said he sneaks drinks. Patient was hypoxic on room air upon arrival. Patient normally does not require oxygen. Patient placed on 3 L nasal cannula. O2 sat 97%. Patient states he feels better after O2 applied. Symptoms are mild to moderate in intensity. No specific worsening or improving factors. CXR in ER showed BLLL pneumonia and started on IV antibiotics. Lactic acid 2.1 @ 13:26., repeat lab pending. Will have PT eval and treat for weakness. He denies CP, Abd. pain, N/V/D. 05/19/24 Pt resting in bed. Per PT pt is not acting himself today and seems somewhat more confused than usual and leaning to one side. CT head ordered for further evaluation. WBC elevated at 12.6, continue IV antibiotics for pneumonia. Pt states he overall does not feel well today. He denies CP, Abd pain, N/V/D. - Review of Systems Constitutional: Weakness, No Fever, No Chills Eyes: No Symptoms Ears, Nose, & Throat: No Symptoms Respiratory: Cough, Short Of Breath Cardiac: No Chest Pain, No Edema, No Syncope Abdominal/Gastrointestinal: No Abdominal Pain, No Nausea, No Vomiting, No Diarrhea Genitourinary Symptoms: No Dysuria Musculoskeletal: No Back Pain, No Neck Pain Skin: No Rash Neurological: Other (increased confusion per PT), No Dizziness, No Focal Weakness, No Sensory Changes Psychological: No Symptoms Endocrine: No Symptoms Hematologic/Lymphatic: No Symptoms Immunological/Allergic: No Symptoms Objective Exam General Appearance: no apparent distress, alert Neurologic Exam: alert, cooperative, normal mood/affect, nml cerebellar function, sensation nml, motor weakness, No motor deficits Skin Exam: normal color, warm, dry Eye Exam: PERRL, EOMI, eyes nml inspection Ears, Nose, Throat Exam: normal ENT inspection, pharynx normal, moist mucous membranes Neck Exam: normal inspection, non-tender, supple, full range of motion Respiratory Exam: crackles/rales, No respiratory distress Cardiovascular Exam: regular rate/rhythm, normal heart sounds Gastrointestinal/Abdomen Exam: soft, No tenderness, No mass Extremity Exam: normal inspection, normal range of motion Back Exam: normal inspection, normal range of motion, No CVA tenderness, No vertebral tenderness Male Genitalia Exam: deferred Rectal Exam: deferred Objective Data Vital Signs: Vital Signs - 24 hr Temp Pulse Resp BP BP Pulse Ox 05/19/24 10:42 107 H 20 91 L 05/19/24 07:54 98.3 F 109 H 18 128/62 91 L 05/19/24 07:28 102 H 18 96 05/19/24 04:00 97.1 F 114 H 19 131/62 96 05/18/24 23:42 97.1 F 100 H 18 127/60 97 05/18/24 20:00 97.3 F 103 H 20 130/59 96 05/18/24 19:33 95 H 16 96 05/18/24 16:50 97.6 F 78 16 112/55 94 L 05/18/24 16:44 94 L 05/18/24 16:16 78 20 143/87 93 L 05/18/24 15:45 95 05/18/24 15:30 104 H 18 126/82 92 L 05/18/24 15:18 96 H 16 92 L 05/18/24 14:30 104 H 21 119/81 93 L 05/18/24 14:00 108 H 15 130/83 95 05/18/24 13:30 102 H 16 149/88 96 05/18/24 13:09 97 05/18/24 13:00 101 H 14 146/88 05/18/24 12:38 106 H 16 153/91 99 05/18/24 12:36 96.7 F 100 H 17 153/91 89 L Pain Assessment - Last Documented Pain Intensity 5 Pain Scale Used 0-10 Pain Scale Intake and Output: Intake & Output 05/16/24 05/17/24 05/18/24 05/19/24 11:59 11:59 11:59 11:59 Intake Total 820 Output Total 2049 Balance -1230 Weight 71 kg Lab Results: Lab Results-Last 24 Hours 05/18/24 05/18/24 05/18/24 Range/Units 13:22 13:22 13:22 WBC 11.6 H (4.23-9.07) x10^3/uL RBC 4.39 L (4.63-6.08) x10^6/uL Hgb 13.1 L (13.7-17.5) g/dL Hct 40.7 (40.1-51.0) % MCV 92.7 H (79.0-92.2) fL MCH 29.8 (25.7-32.2) pg MCHC 32.2 L (32.3-36.5) g/dL RDW 13.7 (11.6-14.4) % Plt Count 163 (163-337) x10^3/uL MPV 10.5 (9.4-12.4) fL Gran % 70.6 H (34.0-67.9) % Immature Gran % (Auto) 0.6 H (0.001-0.429) % Nucleat RBC Rel Count 0.0 (0.00-0.2) % Eos # (Auto) 0.06 (0.04-0.54) x10^3/uL Immature Gran # (Auto) 0.07 H (0.001-0.031) x10^3u/L Absolute Lymphs (auto) 2.60 (1.32-3.57) x10^3/uL Absolute Monos (auto) 0.67 (0.30-0.82) x10^3/uL Absolute Nucleated RBC 0.00 (0.00-0.012) x10^3u/L Lymphocytes % 22.3 (21.8-53.1) % Monocytes % 5.8 (5.3-12.2) % Eosinophils % 0.5 L (0.8-7.0) % Basophils % 0.2 (0.2-1.2) % Absolute Granulocytes 8.22 H (1.78-5.38) x10^3/uL Basophils # 0.02 (0.01-0.08) x10^3/uL Sodium 141 (135-145) mmol/L Potassium 4.5 (3.5-5.1) mmol/L Chloride 102 (98-107) mmol/L Carbon Dioxide 28 (22-30) mmol/L Anion Gap 15.7 H (5-15) MEQ/L BUN 17 (9-20) mg/dL Creatinine 0.86 (0.66-1.25) mg/dL Estimated GFR 94.9 ML/MIN Glucose 196 H (74-106) mg/dL POC Glucometer (74 to 106) mg/dL Lactic Acid (0.4-2.0) Calcium 10.0 (8.4-10.2) mg/dL Total Bilirubin 0.50 (0.2-1.3) mg/dL AST 30 (17-59) U/L ALT 27 (0-50) U/L Alkaline Phosphatase 61 (38-126) U/L Serum Total Protein 7.4 (6.3-8.2) g/dL Albumin 4.3 (3.5-5.0) g/dL Urine Color (Yellow) Urine Appearance (Clear) Urine pH (4.6-8.0) Ur Specific Valentines (1.005-1.030) Urine Protein (Negative) Urine Glucose (UA) (Negative) mg/dL Urine Ketones (Negative) Urine Blood (Negative) Urine Nitrite (Negative) Urine Bilirubin (Negative) Urine Urobilinogen (0.2) mg/dL Ur Leukocyte Esterase (Negative) U Hyaline Cast (Auto) (0-2) /LPF Urine Microscopic RBC (0-5) /HPF Urine Microscopic WBC (0-5) /HPF Ur Epithelial Cells (None Seen) /HPF Urine Bacteria (None Seen) /HPF Urine Culture Reflexed (NO) Monoscreen POSITIVE (NEGATIVE) Influenza Type A Ag (NEGATIVE) Influenza Type B Ag (NEGATIVE) RSV (PCR) (NEGATIVE) SARS-CoV-2 (PCR) (NEGATIVE) Group A Strep Antibody (NEGATIVE) 05/18/24 05/18/24 05/18/24 Range/Units 13:25 13:25 13:26 WBC (4.23-9.07) x10^3/uL RBC (4.63-6.08) x10^6/uL Hgb (13.7-17.5) g/dL Hct (40.1-51.0) % MCV (79.0-92.2) fL MCH (25.7-32.2) pg MCHC (32.3-36.5) g/dL RDW (11.6-14.4) % Plt Count (163-337) x10^3/uL MPV (9.4-12.4) fL Gran % (34.0-67.9) % Immature Gran % (Auto) (0.001-0.429) % Nucleat RBC Rel Count (0.00-0.2) % Eos # (Auto) (0.04-0.54) x10^3/uL Immature Gran # (Auto) (0.001-0.031) x10^3u/L Absolute Lymphs (auto) (1.32-3.57) x10^3/uL Absolute Monos (auto) (0.30-0.82) x10^3/uL Absolute Nucleated RBC (0.00-0.012) x10^3u/L Lymphocytes % (21.8-53.1) % Monocytes % (5.3-12.2) % Eosinophils % (0.8-7.0) % Basophils % (0.2-1.2) % Absolute Granulocytes (1.78-5.38) x10^3/uL Basophils # (0.01-0.08) x10^3/uL Sodium (135-145) mmol/L Potassium (3.5-5.1) mmol/L Chloride (98-107) mmol/L Carbon Dioxide (22-30) mmol/L Anion Gap (5-15) MEQ/L BUN (9-20) mg/dL Creatinine (0.66-1.25) mg/dL Estimated GFR ML/MIN Glucose (74-106) mg/dL POC Glucometer (74 to 106) mg/dL Lactic Acid 2.1 H (0.4-2.0) Calcium (8.4-10.2) mg/dL Total Bilirubin (0.2-1.3) mg/dL AST (17-59) U/L ALT (0-50) U/L Alkaline Phosphatase (38-126) U/L Serum Total Protein (6.3-8.2) g/dL Albumin (3.5-5.0) g/dL Urine Color (Yellow) Urine Appearance (Clear) Urine pH (4.6-8.0) Ur Specific Valentines (1.005-1.030) Urine Protein (Negative) Urine Glucose (UA) (Negative) mg/dL Urine Ketones (Negative) Urine Blood (Negative) Urine Nitrite (Negative) Urine Bilirubin (Negative) Urine Urobilinogen (0.2) mg/dL Ur Leukocyte Esterase (Negative) U Hyaline Cast (Auto) (0-2) /LPF Urine Microscopic RBC (0-5) /HPF Urine Microscopic WBC (0-5) /HPF Ur Epithelial Cells (None Seen) /HPF Urine Bacteria (None Seen) /HPF Urine Culture Reflexed (NO) Monoscreen (NEGATIVE) Influenza Type A Ag NEGATIVE (NEGATIVE) Influenza Type B Ag NEGATIVE (NEGATIVE) RSV (PCR) NEGATIVE (NEGATIVE) SARS-CoV-2 (PCR) NEGATIVE (NEGATIVE) Group A Strep Antibody NOT DETECTED (NEGATIVE) 05/18/24 05/18/24 05/18/24 Range/Units 15:37 16:20 21:14 WBC (4.23-9.07) x10^3/uL RBC (4.63-6.08) x10^6/uL Hgb (13.7-17.5) g/dL Hct (40.1-51.0) % MCV (79.0-92.2) fL MCH (25.7-32.2) pg MCHC (32.3-36.5) g/dL RDW (11.6-14.4) % Plt Count (163-337) x10^3/uL MPV (9.4-12.4) fL Gran % (34.0-67.9) % Immature Gran % (Auto) (0.001-0.429) % Nucleat RBC Rel Count (0.00-0.2) % Eos # (Auto) (0.04-0.54) x10^3/uL Immature Gran # (Auto) (0.001-0.031) x10^3u/L Absolute Lymphs (auto) (1.32-3.57) x10^3/uL Absolute Monos (auto) (0.30-0.82) x10^3/uL Absolute Nucleated RBC (0.00-0.012) x10^3u/L Lymphocytes % (21.8-53.1) % Monocytes % (5.3-12.2) % Eosinophils % (0.8-7.0) % Basophils % (0.2-1.2) % Absolute Granulocytes (1.78-5.38) x10^3/uL Basophils # (0.01-0.08) x10^3/uL Sodium (135-145) mmol/L Potassium (3.5-5.1) mmol/L Chloride (98-107) mmol/L Carbon Dioxide (22-30) mmol/L Anion Gap (5-15) MEQ/L BUN (9-20) mg/dL Creatinine (0.66-1.25) mg/dL Estimated GFR ML/MIN Glucose (74-106) mg/dL POC Glucometer 249 H (74 to 106) mg/dL Lactic Acid 0.8 (0.4-2.0) Calcium (8.4-10.2) mg/dL Total Bilirubin (0.2-1.3) mg/dL AST (17-59) U/L ALT (0-50) U/L Alkaline Phosphatase (38-126) U/L Serum Total Protein (6.3-8.2) g/dL Albumin (3.5-5.0) g/dL Urine Color Yellow (Yellow) Urine Appearance Clear (Clear) Urine pH 7.5 (4.6-8.0) Ur Specific Valentines >=1.030 A (1.005-1.030) Urine Protein Negative (Negative) Urine Glucose (UA) >=1000 A (Negative) mg/dL Urine Ketones Trace A (Negative) Urine Blood Negative (Negative) Urine Nitrite Negative (Negative) Urine Bilirubin Negative (Negative) Urine Urobilinogen 0.2 (0.2) mg/dL Ur Leukocyte Esterase Negative (Negative) U Hyaline Cast (Auto) NONE SEEN (0-2) /LPF Urine Microscopic RBC 0-2 (0-5) /HPF Urine Microscopic WBC 6-10 A (0-5) /HPF Ur Epithelial Cells None Seen (None Seen) /HPF Urine Bacteria None Seen (None Seen) /HPF Urine Culture Reflexed NO (NO) Monoscreen (NEGATIVE) Influenza Type A Ag (NEGATIVE) Influenza Type B Ag (NEGATIVE) RSV (PCR) (NEGATIVE) SARS-CoV-2 (PCR) (NEGATIVE) Group A Strep Antibody (NEGATIVE) 05/19/24 05/19/24 05/19/24 Range/Units 05:27 05:27 07:14 WBC 12.6 H (4.23-9.07) x10^3/uL RBC 4.06 L (4.63-6.08) x10^6/uL Hgb 12.1 L (13.7-17.5) g/dL Hct 37.3 L (40.1-51.0) % MCV 91.9 (79.0-92.2) fL MCH 29.8 (25.7-32.2) pg MCHC 32.4 (32.3-36.5) g/dL RDW 14.0 (11.6-14.4) % Plt Count 177 (163-337) x10^3/uL MPV 10.5 (9.4-12.4) fL Gran % (34.0-67.9) % Immature Gran % (Auto) (0.001-0.429) % Nucleat RBC Rel Count (0.00-0.2) % Eos # (Auto) (0.04-0.54) x10^3/uL Immature Gran # (Auto) (0.001-0.031) x10^3u/L Absolute Lymphs (auto) (1.32-3.57) x10^3/uL Absolute Monos (auto) (0.30-0.82) x10^3/uL Absolute Nucleated RBC (0.00-0.012) x10^3u/L Lymphocytes % (21.8-53.1) % Monocytes % (5.3-12.2) % Eosinophils % (0.8-7.0) % Basophils % (0.2-1.2) % Absolute Granulocytes (1.78-5.38) x10^3/uL Basophils # (0.01-0.08) x10^3/uL Sodium 141 (135-145) mmol/L Potassium 3.9 (3.5-5.1) mmol/L Chloride 102 (98-107) mmol/L Carbon Dioxide 28 (22-30) mmol/L Anion Gap 14.6 (5-15) MEQ/L BUN 18 (9-20) mg/dL Creatinine 0.87 (0.66-1.25) mg/dL Estimated GFR 94.6 ML/MIN Glucose 174 H (74-106) mg/dL POC Glucometer 197 H (74 to 106) mg/dL Lactic Acid (0.4-2.0) Calcium 9.7 (8.4-10.2) mg/dL Total Bilirubin 0.40 (0.2-1.3) mg/dL AST 30 (17-59) U/L ALT 25 (0-50) U/L Alkaline Phosphatase 56 (38-126) U/L Serum Total Protein 6.9 (6.3-8.2) g/dL Albumin 3.8 (3.5-5.0) g/dL Urine Color (Yellow) Urine Appearance (Clear) Urine pH (4.6-8.0) Ur Specific Valentines (1.005-1.030) Urine Protein (Negative) Urine Glucose (UA) (Negative) mg/dL Urine Ketones (Negative) Urine Blood (Negative) Urine Nitrite (Negative) Urine Bilirubin (Negative) Urine Urobilinogen (0.2) mg/dL Ur Leukocyte Esterase (Negative) U Hyaline Cast (Auto) (0-2) /LPF Urine Microscopic RBC (0-5) /HPF Urine Microscopic WBC (0-5) /HPF Ur Epithelial Cells (None Seen) /HPF Urine Bacteria (None Seen) /HPF Urine Culture Reflexed (NO) Monoscreen (NEGATIVE) Influenza Type A Ag (NEGATIVE) Influenza Type B Ag (NEGATIVE) RSV (PCR) (NEGATIVE) SARS-CoV-2 (PCR) (NEGATIVE) Group A Strep Antibody (NEGATIVE) 05/19/24 Range/Units 11:07 WBC (4.23-9.07) x10^3/uL RBC (4.63-6.08) x10^6/uL Hgb (13.7-17.5) g/dL Hct (40.1-51.0) % MCV (79.0-92.2) fL MCH (25.7-32.2) pg MCHC (32.3-36.5) g/dL RDW (11.6-14.4) % Plt Count (163-337) x10^3/uL MPV (9.4-12.4) fL Gran % (34.0-67.9) % Immature Gran % (Auto) (0.001-0.429) % Nucleat RBC Rel Count (0.00-0.2) % Eos # (Auto) (0.04-0.54) x10^3/uL Immature Gran # (Auto) (0.001-0.031) x10^3u/L Absolute Lymphs (auto) (1.32-3.57) x10^3/uL Absolute Monos (auto) (0.30-0.82) x10^3/uL Absolute Nucleated RBC (0.00-0.012) x10^3u/L Lymphocytes % (21.8-53.1) % Monocytes % (5.3-12.2) % Eosinophils % (0.8-7.0) % Basophils % (0.2-1.2) % Absolute Granulocytes (1.78-5.38) x10^3/uL Basophils # (0.01-0.08) x10^3/uL Sodium (135-145) mmol/L Potassium (3.5-5.1) mmol/L Chloride (98-107) mmol/L Carbon Dioxide (22-30) mmol/L Anion Gap (5-15) MEQ/L BUN (9-20) mg/dL Creatinine (0.66-1.25) mg/dL Estimated GFR ML/MIN Glucose (74-106) mg/dL POC Glucometer 301 H (74 to 106) mg/dL Lactic Acid (0.4-2.0) Calcium (8.4-10.2) mg/dL Total Bilirubin (0.2-1.3) mg/dL AST (17-59) U/L ALT (0-50) U/L Alkaline Phosphatase (38-126) U/L Serum Total Protein (6.3-8.2) g/dL Albumin (3.5-5.0) g/dL Urine Color (Yellow) Urine Appearance (Clear) Urine pH (4.6-8.0) Ur Specific Valentines (1.005-1.030) Urine Protein (Negative) Urine Glucose (UA) (Negative) mg/dL Urine Ketones (Negative) Urine Blood (Negative) Urine Nitrite (Negative) Urine Bilirubin (Negative) Urine Urobilinogen (0.2) mg/dL Ur Leukocyte Esterase (Negative) U Hyaline Cast (Auto) (0-2) /LPF Urine Microscopic RBC (0-5) /HPF Urine Microscopic WBC (0-5) /HPF Ur Epithelial Cells (None Seen) /HPF Urine Bacteria (None Seen) /HPF Urine Culture Reflexed (NO) Monoscreen (NEGATIVE) Influenza Type A Ag (NEGATIVE) Influenza Type B Ag (NEGATIVE) RSV (PCR) (NEGATIVE) SARS-CoV-2 (PCR) (NEGATIVE) Group A Strep Antibody (NEGATIVE) Radiology Exams: Radiology Procedures Category Date Time Status CHEST 1 VIEW (PORTABLE) Stat Exams 05/18/24 13:10 Completed HEAD WITHOUT CONTRAST [CT] Stat Exams 05/19/24 11:14 Taken Assessment/Plan (1) Bilateral pneumonia Current Visit: No Status: Acute Code(s): J18.9 - PNEUMONIA, UNSPECIFIED ORGANISM (2) Mononucleosis Current Visit: Yes Status: Acute Code(s): B27.90 - INFECTIOUS MONONUCLEOSIS, UNSPECIFIED WITHOUT COMPLICATION (3) Generalized weakness Current Visit: Yes Status: Acute Code(s): R53.1 - WEAKNESS (4) Lactic acidosis Current Visit: Yes Status: Acute Code(s): E87.20 - ACIDOSIS, UNSPECIFIED (5) Epilepsy Current Visit: No Status: Chronic Code(s): G40.909 - EPILEPSY, UNSP, NOT INTRACTABLE, WITHOUT STATUS EPILEPTICUS (6) DM2 (diabetes mellitus, type 2) Current Visit: No Status: Chronic (7) Depression Current Visit: No Status: Chronic Code(s): F32.9 - MAJOR DEPRESSIVE DISORDER, SINGLE EPISODE, UNSPECIFIED (8) Hx of aspiration pneumonitis Current Visit: No Status: Chronic Code(s): Z87.09 - PERSONAL HISTORY OF OTHER DISEASES OF THE RESPIRATORY SYSTEM (9) Hx of traumatic brain injury Current Visit: No Status: Chronic Code(s): Z87.820 - PERSONAL HISTORY OF TRAUMATIC BRAIN INJURY (10) Iron deficiency anemia Current Visit: No Status: Chronic Code(s): D50.9 - IRON DEFICIENCY ANEMIA, UNSPECIFIED (11) BPH (benign prostatic hyperplasia) Current Visit: Yes Status: Chronic Code(s): N40.0 - BENIGN PROSTATIC HYPERPLASIA WITHOUT LOWER URINRY TRACT SYMP (12) GERD (gastroesophageal reflux disease) Current Visit: Yes Status: Acute Code(s): K21.9 - GASTRO-ESOPHAGEAL REFLUX DISEASE WITHOUT ESOPHAGITIS (13) COPD (chronic obstructive pulmonary disease) Current Visit: Yes Status: Acute Assessment & Plan: (1) Bilateral pneumonia Current Visit: No Status: Acute Assessment & Plan: - Likely aspiration pneumonia as pt has a hx of this and is to be on thickened liquids. - Started on Doxy IV in ER- continue - Tele - BC X2 pending - 3LNC 94% - CBC reviewed - WBC 11.6 - CXR reviewed - duonejoseph, advair 05/19 - CBC and CMP reviewed - WBC 12.6 - Continue IV antibiotic - 3lNC 96% Code(s): J18.9 - PNEUMONIA, UNSPECIFIED ORGANISM (2) Mononucleosis Current Visit: Yes Status: Acute Assessment & Plan: - incidental finding on testing in ER - Supportive care. Code(s): B27.90 - INFECTIOUS MONONUCLEOSIS, UNSPECIFIED WITHOUT COMPLICATION (3) Generalized weakness Current Visit: Yes Status: Acute Assessment & Plan: - PT eval and treat. 05/19 - increased weakness and confusion per PT - Head CT w/o contrast Code(s): R53.1 - WEAKNESS (4) Lactic acidosis Current Visit: Yes Status: Acute Assessment & Plan: - LA 2.1 @ 13:26- no IVF gave in ER - ordered to recheck at 15:30 in ER - Consider PO challenge d/t fluid shortage - 2:2 pneumonia - repeat LA 0.8- resolved Code(s): E87.20 - ACIDOSIS, UNSPECIFIED (5) Epilepsy Current Visit: No Status: Chronic Assessment & Plan: - Continue Depakote Code(s): G40.909 - EPILEPSY, UNSP, NOT INTRACTABLE, WITHOUT STATUS EPILEPTICUS (6) DM2 (diabetes mellitus, type 2) Current Visit: No Status: Chronic Assessment & Plan: - Carb Consistent diet - A1C 7.36, 04/22/24 - accuchecks AC/HS, low dose S/S. (7) Depression Current Visit: No Status: Chronic Assessment & Plan: - Continue home meds Code(s): F32.9 - MAJOR DEPRESSIVE DISORDER, SINGLE EPISODE, UNSPECIFIED (8) Hx of aspiration pneumonitis Current Visit: No Status: Chronic Assessment & Plan: - With previous admissions - Continue thickened liquids. Code(s): Z87.09 - PERSONAL HISTORY OF OTHER DISEASES OF THE RESPIRATORY SYSTEM (9) Hx of traumatic brain injury Current Visit: No Status: Chronic Assessment & Plan: - Noted, adds to complexity - Pt has a hx of aspiration pneumonia from drinking non- thickened liquids. He reports being thirsty and not being to control himself. Code(s): Z87.820 - PERSONAL HISTORY OF TRAUMATIC BRAIN INJURY (10) Iron deficiency anemia Current Visit: No Status: Chronic Assessment & Plan: - Continue ferrous sulfate - trend hgb - Hgb 13.1 05/08 - Hgb 12.1 Code(s): D50.9 - IRON DEFICIENCY ANEMIA, UNSPECIFIED (11) BPH (benign prostatic hyperplasia) Current Visit: Yes Status: Chronic Assessment & Plan: - Continue flomax Code(s): N40.0 - BENIGN PROSTATIC HYPERPLASIA WITHOUT LOWER URINRY TRACT SYMP (12) GERD (gastroesophageal reflux disease) Current Visit: Yes Status: Acute Assessment & Plan: - Continue PPI Code(s): K21.9 - GASTRO-ESOPHAGEAL REFLUX DISEASE WITHOUT ESOPHAGITIS (13) COPD (chronic obstructive pulmonary disease) Current Visit: Yes Status: Acute Assessment & Plan: - Continue home meds 05/19 - 3lNC 96% VTE: Loveonx PPI:Omeprazole Next of KIN: Sister D/C plan: 2-3 days Code status: SCO/DNR
--- NOTE | 2024-05-19 12:01 | XRAY ---
Indication: Loss of consciousness. Stroke. Multiple contiguous images obtained through the head without contrast. Comparison: May 17, 2024 Again age-appropriate global atrophy and minimal periventricular degenerative micro-ischemia. No acute intracranial hemorrhage, abnormal extra-axial fluid collection, or mass effect. Fourth ventricle is midline without hydrocephalus. Bony calvarium intact. Again mild mucoperiosteal thickening both ethmoid and and lesser degree both maxillary/right sphenoid sinuses without fluid leveling. Mastoid air cells are clear. Impression: Continued nonacute senile brain. Again incidental paranasal sinus disease.
[2024-05-19] MEDS: solu-MEDROL 40 MG, Sterile H2O 10 ml 1 ML IV SCH (13:48)
[2024-05-19] MEDS: Transderm Scop 1.5MG Patch TD SCH (15:29)
[2024-05-20] MEDS ORDERED: TYLENOL 325 MG ONE (00:08)
[2024-05-20] MEDS: TYLENOL 325 MG PO PRN (00:08)
[2024-05-20] MEDS ORDERED: MOTRIN 600 MG ONE (03:49)
[2024-05-20] MEDS: Lasix 20 MG/2 ML IV ONE (03:55)
[2024-05-20 04:14] LABS: Hematocrit 44.8 % (40.1-51.0); Hemoglobin 14.6 g/dL (13.7-17.5); Mean Cell Volume 92.6 fL (79.0-92.2); Mean Corpuscular Hemoglobin 30.2 pg (25.7-32.2); Mean Corpuscular Hgb Concent. 32.6 g/dL (32.3-36.5); Mean Platelet Volume 10.2 fL (9.4-12.4); Platelet Count 195 x10^3/uL (163-337); Red Blood Count 4.84 x10^6/uL (4.63-6.08); Red Cell Distribution Width 14.1 % (11.6-14.4); White Blood Count 13.7 x10^3/uL (4.23-9.07)
--- NOTE | 2024-05-20 04:27 | TM.IN ---
Tele-Medicine Incident Note - Incident Note Tel-Medicine Incident Note: 05/20/24 0425 Overnight, the patient has developed fevers and an increasing oxygen requirement. Patient has been receiving Tylenol and Motrin, and will also receive Lasix 20 mg IV x 1. Will check a BNP in the AM and also obtain a repeat CXR. Patient is DNR. Will continue to monitor clinical course. Telemedicine Encounter - Telemedicine Encounter Telemedicine Encounter: "The entirety of this encounter was performed via Telemedicine" This visit was performed using real-time audio and video connection between my location and thepatients locationwith the assistance of a surrogateat the patients location. Written or verbal consent was obtained from the patient/guardian to perform this visit using[email or web address] unitlemedicine technology. Any patient questions regarding the telemedicine interaction were answered.
[2024-05-20 04:31] LABS: ALBUMIN 4.5 g/dL (3.5-5.0); ANION GAP 21.2 MEQ/L (5-15); BILIRUBIN,TOTAL 0.5 mg/dL (0.2-1.3); Calcium 11.1 mg/dL (8.4-10.2); Creatinine 1 1.06 mg/dL (0.66-1.25); EST GLOMERULAR FILTRATION RATE 76.9 ML/MIN; Total Protein 8.2 g/dL (6.3-8.2)
[2024-05-20 04:44] LABS: A-aADO2 126; ABG POTASSIUM 3.9 (3.5-5.1); ABG SITE LEFT RADIAL; ALLEN TEST OK? YES; ARTERIAL BLD GAS O2 SATURATION 84.8 % (95-100); ARTERIAL BLOOD GAS BASE EXCESS 5.2 (-2.0-2.0); ARTERIAL BLOOD GAS FIO2 32 %; ARTERIAL BLOOD GAS PCO2 39 mmHg (35-45); ARTERIAL BLOOD GAS PO2 53 mmHg (75-100); ARTERIAL BLOOD GAS pH 7.48 (7.35-7.45); CARBOXYHEMOGLOBIN 1.2 % THgb (0.0-6.9); HGB O2 SAT 83.2 g/dF (94-100); Methhemoglobin 0.8 % (1.4-1.5)
--- NOTE | 2024-05-20 05:05 | XRAY ---
CLINICAL HISTORY: worsening condition COMPARISON: CT chest dated 08/10/2023 TECHNIQUE: X ray of the chest AP view portable. FINDINGS: There are confluent bilateral Patchy areas of Airspace opacification seen again at the middle and lower lung zones bilaterally. No definite upper lung infiltrates seen suggesting resolving. Prominent bilateral hilar vascular shadows. The heart is not enlarged. No pleural effusion seen. No mediastinal masses seen. Intact bony thorax seen. No evidence of pneumothorax. IMPRESSION: 1. Confluent bilateral Patchy areas of airspace opacification seen again at the middle and lower lung zones. 2. Resolving of the bilatearl upper lung infiltrates seen. 3. Prominent bilateral hilar vascular shadows. 4. Follow up chest X ray advised. Electronically Signed by: Carlos Enrique Heller MD. (05/20/2024 05:01:57 EDT)
[2024-05-20] MEDS: Ativan 2 MG/1 ML VIAL IV ONE (06:44)
[2024-05-20] MEDS: Ativan 2 MG/1 ML VIAL IM ONE (07:15)
[2024-05-20] MEDS ORDERED: LEVOFLOXACIN 750MG/150ML D5W 750 MG/150 ML BAG IV SCH (10:00)
[2024-05-20] MEDS: FEVERALL 650 MG PR PRN (10:06)
[2024-05-20] MEDS: PHARMACY DOSING REQUIRED: VANCOMYCIN IV STA (10:38)
[2024-05-20] MEDS: Triple Antibiotic Ointment TP SCH (11:19)
[2024-05-20] MEDS: Levaquin 250MG/50ML D5W 250 MG/50 ML BAG IV SCH (11:21)
[2024-05-20] MEDS: Levofloxacin 500MG/100ML D5W 500 MG/100 ML BAG IV SCH (12:20)
--- NOTE | 2024-05-20 13:08 | PCM.NOTE ---
Date and Time: 05/20/24 1251 Subjective Assessment: 05/18/24 is a 69 year old male with PMHX of hypertension, type II diabetes, some cognitive dysfunction from previous traumatic brain injury, BPH, hyperlipidemia. GERD, COPD, epilepsy, depression, anxiety, and recurrent aspiration pneumonia. He presented to our ED for the second time in 24 hours. Patient was in our ED last night. Patient complained of weakness. Patient was discharged home. Patient is here with his sister again today She states that patient spiked a fever last night. Currently afebrile. Patient complains of some shortness of breath. He admits to drinking non-thickend liquids again. Sister said he sneaks drinks. Patient was hypoxic on room air upon arrival. Patient normally does not require oxygen. Patient placed on 3 L nasal cannula. O2 sat 97%. Patient states he feels better after O2 applied. Symptoms are mild to moderate in intensity. No specific worsening or improving factors. CXR in ER showed BLLL pneumonia and started on IV antibiotics. Lactic acid 2.1 @ 13:26., repeat lab pending. Will have PT eval and treat for weakness. He denies CP, Abd. pain, N/V/D. 05/19/24 Pt resting in bed. Per PT pt is not acting himself today and seems somewhat more confused than usual and leaning to one side. CT head ordered for further evaluation. WBC elevated at 12.6, continue IV antibiotics for pneumonia. Pt states he overall does not feel well today. He denies CP, Abd pain, N/V/D. 05/20/24 Pt resting in bed unresponsive. Overnight pt began to decline and became hypoxic and placed on bipap. He was unable to tolerate this and family asked for this to be removed. Family was called in and continues to want pt to be a DNR and no bipap. They originally wanted comfort measures then changed their mind and wanted to try a change in antibiotics. Pt is now on hiflow/ non-rebreather O2 with O2 sat of 88%, HR 150's, and RR 40. He continues to be unresponsive. Dr. Harris pt's powder line repairer again notified and he recommended comfort measures. Discussed with case management and hospice consulted. Dr. Darnell also discussed plan of care with pt family. Family reported they want to try stronger antibiotics for 48 hours and if no change then comfort measures. Christine placed by nursing as pt has been incontinent since unresponsive. Per nursing they thought he was uncircumcised and unable to move foreskin forward. Pt appears circumcised to me and skin would not need to be pulled forward in this case. He does have some redness of frenulum, antibiotic ointment ordered BID. Nursing made aware to monitor for edema. - Review of Systems Constitutional: No Fever, No Chills Respiratory: No Cough, No Short Of Breath Cardiac: No Chest Pain, No Edema, No Syncope Abdominal/Gastrointestinal: No Abdominal Pain, No Nausea, No Vomiting, No Diarrhea Genitourinary Symptoms: No Dysuria Musculoskeletal: No Back Pain, No Neck Pain Skin: No Rash Neurological: No Dizziness, No Focal Weakness, No Sensory Changes Psychological: Other (unresponsive) Objective Exam General Appearance: moderate distress Neurologic Exam: other (unresponsive), No motor deficits Skin Exam: normal color, warm, dry Eye Exam: PERRL, EOMI, eyes nml inspection Ears, Nose, Throat Exam: normal ENT inspection, pharynx normal, moist mucous membranes Neck Exam: normal inspection, non-tender, supple, full range of motion Respiratory Exam: respiratory distress, crackles/rales Cardiovascular Exam: regular rate/rhythm, normal heart sounds, tachycardia Gastrointestinal/Abdomen Exam: soft, No tenderness, No mass Extremity Exam: normal inspection Back Exam: normal inspection, No CVA tenderness, No vertebral tenderness Male Genitalia Exam: other (redness of skin of penis) Rectal Exam: deferred Objective Data Vital Signs: Vital Signs - 24 hr Temp Pulse Resp BP Pulse Ox 05/20/24 10:34 137 H 40 H 88 L 05/20/24 08:00 102.5 F 155 H 50 H 135/66 81 L 05/20/24 07:15 158 H 48 H 05/20/24 07:06 157 H 58 H 84 L 05/20/24 04:00 101.8 F 135 H 52 H 137/65 78 L 05/20/24 00:00 101.8 F 114 H 28 H 137/65 90 L 05/19/24 20:00 97.6 F 114 H 20 145/64 89 L 05/19/24 18:18 91 H 18 90 L 05/19/24 16:00 96.2 F 88 16 134/59 96 05/19/24 14:32 108 H 20 91 L Pain Assessment - Last Documented Pain Intensity 3 Pain Scale Used 0-10 Pain Scale Intake and Output: Intake & Output 05/18/24 05/19/24 05/20/24 05/21/24 11:59 11:59 11:59 11:59 Intake Total 820 530 Output Total 2050 980 Balance -1230 -450 Weight 71 kg Lab Results: Lab Results-Last 24 Hours 05/19/24 05/20/24 05/20/24 Range/Units 16:25 03:12 04:10 WBC 13.7 H (4.23-9.07) x10^3/uL RBC 4.84 (4.63-6.08) x10^6/uL Hgb 14.6 D (13.7-17.5) g/dL Hct 44.8 (40.1-51.0) % MCV 92.6 H (79.0-92.2) fL MCH 30.2 (25.7-32.2) pg MCHC 32.6 (32.3-36.5) g/dL RDW 14.1 (11.6-14.4) % Plt Count 195 (163-337) x10^3/uL MPV 10.2 (9.4-12.4) fL Puncture Site LEFT RADIAL pCO2 39 (35-45) mmHg pO2 53 L (75-100) mmHg Base Excess 5.2 H (-2.0-2.0) O2 Saturation 83.2 L (94-100) g/dF ABG pH 7.48 H (7.35-7.45) ABG HCO3 29.0 H (22-28) ABG O2 Sat (Measured) 84.8 L (95-100) % Mane Test YES A-a Gradient 126 a/A Ratio 0.30 Hemoglobin 15.0 Carboxyhemoglobin 1.2 (0.0-6.9) % THgb Methemoglobin 0.8 L (1.4-1.5) % Potassium 3.9 (3.5-5.1) Temperature 37.0 C POC O2 Flow Rate 32 % Sodium (135-145) mmol/L Chloride (98-107) mmol/L Carbon Dioxide (22-30) mmol/L Anion Gap (5-15) MEQ/L BUN (9-20) mg/dL Creatinine (0.66-1.25) mg/dL Estimated GFR ML/MIN Glucose (74-106) mg/dL POC Glucometer 272 H (74 to 106) mg/dL Calcium (8.4-10.2) mg/dL Total Bilirubin (0.2-1.3) mg/dL AST (17-59) U/L ALT (0-50) U/L Alkaline Phosphatase (38-126) U/L Serum Total Protein (6.3-8.2) g/dL Albumin (3.5-5.0) g/dL 05/20/24 05/20/24 05/20/24 Range/Units 04:10 07:20 11:33 WBC (4.23-9.07) x10^3/uL RBC (4.63-6.08) x10^6/uL Hgb (13.7-17.5) g/dL Hct (40.1-51.0) % MCV (79.0-92.2) fL MCH (25.7-32.2) pg MCHC (32.3-36.5) g/dL RDW (11.6-14.4) % Plt Count (163-337) x10^3/uL MPV (9.4-12.4) fL Puncture Site pCO2 (35-45) mmHg pO2 (75-100) mmHg Base Excess (-2.0-2.0) O2 Saturation (94-100) g/dF ABG pH (7.35-7.45) ABG HCO3 (22-28) ABG O2 Sat (Measured) (95-100) % Mane Test A-a Gradient a/A Ratio Hemoglobin Carboxyhemoglobin (0.0-6.9) % THgb Methemoglobin (1.4-1.5) % Potassium 4.0 (3.5-5.1) Temperature C POC O2 Flow Rate % Sodium 149 H D (135-145) mmol/L Chloride 106 (98-107) mmol/L Carbon Dioxide 27 (22-30) mmol/L Anion Gap 21.2 H (5-15) MEQ/L BUN 24 H (9-20) mg/dL Creatinine 1.06 (0.66-1.25) mg/dL Estimated GFR 76.9 ML/MIN Glucose 225 H (74-106) mg/dL POC Glucometer 294 H 256 H (74 to 106) mg/dL Calcium 11.1 H (8.4-10.2) mg/dL Total Bilirubin 0.50 (0.2-1.3) mg/dL AST 55 (17-59) U/L ALT 43 (0-50) U/L Alkaline Phosphatase 68 (38-126) U/L Serum Total Protein 8.2 (6.3-8.2) g/dL Albumin 4.5 (3.5-5.0) g/dL Radiology Exams: Radiology Procedures Category Date Time Status CHEST 1 VIEW (PORTABLE) Stat Exams 05/18/24 13:10 Completed HEAD WITHOUT CONTRAST [CT] Stat Exams 05/19/24 11:14 Completed Portable Chest [CHEST 1 VIEW (PORTABLE)] Stat Exams 05/20/24 03:43 Completed Multi-Disciplinary Progress Notes: Multi-Disciplinary Progress Notes 05/20/24 09:38 Pharmacy Note by Yahir Armendariz Vancomycin dosed at 1gm iv q18h. Will monitor and order trough if needed. Initialized on 05/20/24 09:38 - END OF NOTE 05/20/24 09:15 (created 05/20/24 12:20) Case Management Note by Nadege Brand PATIENT HAS HAS SIGNIFICANT DECLINE IN STATUS. FAMILY HAS TALKED WITH PROVIDERS- SHE WOULD LIKE TO CONTINUE TO TRY INTENSIVE ANTIBIOTIC THERAPY AT THIS TIME. SHE CONTINUES TO DECLINE THE BIPAP FOR PATIENT PATIENT DID NOT TOLERATE IT. DAUGHTER NOTIFIED THAT IF SHE DECIDES SHE WOULD LIKE COMFORT MEASURES ONLY- WE CAN DISCUSS A POSSIBLE GIP STAY AT THAT TIME. SHE VERIFIED UNDERSTANDING AND STATED SHE FELT IT WOULD BE BEST FOR PATIENT TO STAY HERE. Initialized on 05/20/24 12:20 - END OF NOTE 05/20/24 04:51 Respiratory Note by Jena Pascual RT CALLED @ 0308 DUE TO LOW SPO2 OF 82% ON 3L NC. INCREASED TO 6L AND ABG DRAWN. SPO2 CONTINUING TO DECREASE. PLACED ON 10L OXYMIZER. SPO2 REMAINED LOW. INCREASED TO 15L OXYMIZER-SPO2 ON 15L OXYMIZER 88%. PLACED ON HEATED HIGH FLOW. SPO2 CONTINUED TO DECLINE AFTER 20 MINUTES ON HEATED HIGH FLOW, 100% AND 50L- SPO2 87%. PLACED ON BIPAP @ 0355. SPO2 CONTINUES TO DECREASE. FAMILY CALLED BY RN. Initialized on 05/20/24 04:51 - END OF NOTE Assessment/Plan (1) Bilateral pneumonia Current Visit: No Status: Acute Code(s): J18.9 - PNEUMONIA, UNSPECIFIED ORGANISM (2) Mononucleosis Current Visit: Yes Status: Acute Code(s): B27.90 - INFECTIOUS MONONUCLEOSIS, UNSPECIFIED WITHOUT COMPLICATION (3) Generalized weakness Current Visit: Yes Status: Acute Code(s): R53.1 - WEAKNESS (4) Lactic acidosis Current Visit: Yes Status: Acute Code(s): E87.20 - ACIDOSIS, UNSPECIFIED (5) Epilepsy Current Visit: No Status: Chronic Code(s): G40.909 - EPILEPSY, UNSP, NOT INTRACTABLE, WITHOUT STATUS EPILEPTICUS (6) DM2 (diabetes mellitus, type 2) Current Visit: No Status: Chronic (7) Depression Current Visit: No Status: Chronic Code(s): F32.9 - MAJOR DEPRESSIVE DISORDER, SINGLE EPISODE, UNSPECIFIED (8) Hx of aspiration pneumonitis Current Visit: No Status: Chronic Code(s): Z87.09 - PERSONAL HISTORY OF OTHER DISEASES OF THE RESPIRATORY SYSTEM (9) Hx of traumatic brain injury Current Visit: No Status: Chronic Code(s): Z87.820 - PERSONAL HISTORY OF TRAUMATIC BRAIN INJURY (10) Iron deficiency anemia Current Visit: No Status: Chronic Code(s): D50.9 - IRON DEFICIENCY ANEMIA, UNSPECIFIED (11) BPH (benign prostatic hyperplasia) Current Visit: Yes Status: Chronic Code(s): N40.0 - BENIGN PROSTATIC HYPERPLASIA WITHOUT LOWER URINRY TRACT SYMP (12) GERD (gastroesophageal reflux disease) Current Visit: Yes Status: Acute Code(s): K21.9 - GASTRO-ESOPHAGEAL REFLUX DISEASE WITHOUT ESOPHAGITIS (13) COPD (chronic obstructive pulmonary disease) Current Visit: Yes Status: Acute Assessment & Plan: (1) Bilateral pneumonia Current Visit: No Status: Acute Assessment & Plan: - Likely aspiration pneumonia as pt has a hx of this and is to be on thickened liquids. - Started on Doxy IV in ER- continue - Tele - BC X2 pending - 3LNC 94% - CBC reviewed - WBC 11.6 - CXR reviewed - doreen ortega 05/19 - CBC and CMP reviewed - WBC 12.6 - Continue IV antibiotic - 3lNC 96% - Pulmonology consulted - an no new orders gave 05/20 - rapid decline overnight - family refuses intubation or bipap - DNR/SCO - Pt on NRB 88%, RR 40, HR 130-150- ST - Pt unresponsive - Repeat CXR reviewed - CBC, CMP reviewed - Antibiotics changed to Levaquin and vancomycin - Pulmonology notfied again of pt decline - no changes and recommended comfort care - Hospice consult - CBC and CMP reviewed - WBC 1.7 - BX x2 negative - fever 102 - repeat BC x2 ordered Code(s): J18.9 - PNEUMONIA, UNSPECIFIED ORGANISM (2) Mononucleosis Current Visit: Yes Status: Acute Assessment & Plan: - incidental finding on testing in ER - Supportive care. Code(s): B27.90 - INFECTIOUS MONONUCLEOSIS, UNSPECIFIED WITHOUT COMPLICATION (3) Generalized weakness Current Visit: Yes Status: Acute Assessment & Plan: - PT eval and treat. 05/19 - increased weakness and confusion per PT - Head CT w/o contrast- negative for acute concern 05/20 - pt unresponsive today Code(s): R53.1 - WEAKNESS (4) Lactic acidosis Current Visit: Yes Status: Acute Assessment & Plan: - LA 2.1 @ 13:26- no IVF gave in ER - ordered to recheck at 15:30 in ER - Consider PO challenge d/t fluid shortage - 2:2 pneumonia - repeat LA 0.8- resolved Code(s): E87.20 - ACIDOSIS, UNSPECIFIED (5) Epilepsy Current Visit: No Status: Chronic Assessment & Plan: - Continue Depakote Code(s): G40.909 - EPILEPSY, UNSP, NOT INTRACTABLE, WITHOUT STATUS EPILEPTICUS (6) DM2 (diabetes mellitus, type 2) Current Visit: No Status: Chronic Assessment & Plan: - Carb Consistent diet - A1C 7.36, 04/22/24 - accuchecks AC/HS, low dose S/S. (7) Depression Current Visit: No Status: Chronic Assessment & Plan: - Continue home meds Code(s): F32.9 - MAJOR DEPRESSIVE DISORDER, SINGLE EPISODE, UNSPECIFIED (8) Hx of aspiration pneumonitis Current Visit: No Status: Chronic Assessment & Plan: - With previous admissions - Continue thickened liquids. Code(s): Z87.09 - PERSONAL HISTORY OF OTHER DISEASES OF THE RESPIRATORY SYSTEM (9) Hx of traumatic brain injury Current Visit: No Status: Chronic Assessment & Plan: - Noted, adds to complexity - Pt has a hx of aspiration pneumonia from drinking non- thickened liquids. He reports being thirsty and not being to control himself. Code(s): Z87.820 - PERSONAL HISTORY OF TRAUMATIC BRAIN INJURY (10) Iron deficiency anemia Current Visit: No Status: Chronic Assessment & Plan: - Continue ferrous sulfate - trend hgb - Hgb 13.1 05/08 - Hgb 12.1 05/09 - hgb 14.6 Code(s): D50.9 - IRON DEFICIENCY ANEMIA, UNSPECIFIED (11) BPH (benign prostatic hyperplasia) Current Visit: Yes Status: Chronic Assessment & Plan: - Continue flomax 05/20 - urinary incontinence since unresponsive- christine placed - UC pending Code(s): N40.0 - BENIGN PROSTATIC HYPERPLASIA WITHOUT LOWER URINRY TRACT SYMP (12) GERD (gastroesophageal reflux disease) Current Visit: Yes Status: Acute Assessment & Plan: - Continue PPI Code(s): K21.9 - GASTRO-ESOPHAGEAL REFLUX DISEASE WITHOUT ESOPHAGITIS (13) COPD (chronic obstructive pulmonary disease) Current Visit: Yes Status: Acute Assessment & Plan: - Continue home meds 05/19 - 3lNC 96% 05/20 - rapid decline overnight - family refuses intubation or bipap - Pt on NRB 88%, RR 40, HR 130-150- ST - Pt unresponsive - Repeat CXR reviewed - see above pneumonia plan VTE: Loveonx PPI:Omeprazole Next of KIN: Sister D/C plan: 2-3 days Code status: SCO/DNR
[2024-05-20] MEDS: VANCOMYCIN 1 GRAM/200 ML BAG 1 GM/200 ML PIGGYBACK IV SCH (13:43)
[2024-05-20] MEDS: SODIUM CHLORIDE 0.9% IV SCH (15:21)
[2024-05-20] MEDS: DEPACON IV SCH (15:21)
[2024-05-20] MEDS: PHARMACY DOSING REQUEST MC ONE (17:31)
[2024-05-20] MEDS: PROTONIX 40 MG IV IV SCH (21:55)
[2024-05-21 05:03] LABS: Hemoglobin 13.7 g/dL (13.7-17.5); Mean Cell Volume 93.7 fL (79.0-92.2); Mean Corpuscular Hemoglobin 29.8 pg (25.7-32.2); Mean Corpuscular Hgb Concent. 31.9 g/dL (32.3-36.5); Mean Platelet Volume 10.7 fL (9.4-12.4); Platelet Count 233 x10^3/uL (163-337); Red Blood Count 4.59 x10^6/uL (4.63-6.08); Red Cell Distribution Width 14.5 % (11.6-14.4); White Blood Count 13.1 x10^3/uL (4.23-9.07)
[2024-05-21 05:19] LABS: ANION GAP 18.7 MEQ/L (5-15); BILIRUBIN,TOTAL 0.7 mg/dL (0.2-1.3); Calcium 10.2 mg/dL (8.4-10.2); Creatinine 1 1.48 mg/dL (0.66-1.25); EST GLOMERULAR FILTRATION RATE 51.5 ML/MIN; Potassium 3.8 mmol/L (3.5-5.1); Total Protein 7.8 g/dL (6.3-8.2)
--- NOTE | 2024-05-21 08:43 | CONS ---
HISTORY: The patient is a 69-year-old male with multiple health issues including chronic pulmonary problems, well-known to me, who was brought to emergency room by his sister who is also his caregiver. Patient apparently has been experiencing cough and shortness of breath. The sister reports that patient was discharged from the hospital; however, upon reaching home, his condition deteriorated leading to another ER visit. He has now been hospitalized. Patient did test positive for mononucleosis. He has been started on antibiotics for possible bilateral lower lobe infiltrates. He appears extremely weak. He has been requiring assistance for ADLs. PAST MEDICAL HISTORY: Positive for history of COPD, history of recurrent aspiration pneumonia, history of a traumatic brain injury, diabetes mellitus and impulse control disorder. PAST SURGICAL HISTORY: No recent surgeries. SOCIAL HISTORY: He lives with his sister. MEDICATIONS: Reviewed. ALLERGIES: Noted. PHYSICAL EXAMINATION: GENERAL: This is an elderly male who appears weak but not in any distress currently. VITAL SIGNS: Noted. Oxygen via nasal cannula. HEENT: Normocephalic. Oral exam is limited. CARDIOVASCULAR: First and second heart sounds to be normal, regular, rhythmic. RESPIRATORY: Diminished breath sounds. Bilateral rhonchi are heard. ABDOMEN: Soft. EXTREMITIES: No edema is noted. RADIOLOGY: CAT scans were reviewed. LABORATORY: Lab tests show sodium 141, potassium 3.9, chloride 102, bicarbonate 28, BUN 18, and creatinine of 0.8. Glucose readings were reviewed. LFTs are within normal limits. White count 11.6, hemoglobin 13.1, hematocrit 40, platelets 163. Serology monoscreen is positive. Influenzae A, B, RSV and COVID are negative. Strep is negative as well. ASSESSMENT: 1) This is a 69-year-old male with longstanding problems of chronic obstructive pulmonary disease admitted with bilateral lower lobe pneumonia, viral versus bacterial. 2) Recurrent aspiration pneumonia. 3) History of significant bronchospasm. 4) Diabetes mellitus. 5) Traumatic brain injury. RECOMMENDATION: 1) I have reviewed current medication records and I agree with the same. 2) Continue bronchodilators. Continue antibiotics, steroids, monitoring for glycemic control. 3) Home medications are continued. 4) Agree with DVT prophylaxis. 5) Await clinical improvement. I have discussed this with patient's sister, who is present at bedside. Thank you for allowing me to participate in the care of this patient.
--- NOTE | 2024-05-21 08:58 | XRAY ---
CLINICAL HISTORY: SOB, fever COMPARISON: 05/20/2024 TECHNIQUE: FRONTAL CHEST XRAY FINDINGS: Almost the resolution of the right Patchy areas of Airspace opacification Regression in the left lower zone Patchy areas of Airspace opacification. still noted left costophrenic obliteration suggesting left pleural effusion The heart size is limited on this projection. No mediastinal masses seen. Intact bony thorax seen. No evidence of pneumothorax. IMPRESSION: 1. Almost the resolution of the right Patchy areas of Airspace opacification. 2. Regression in the left lower zone Patchy areas of Airspace opacification. 3. Still noted left costophrenic obliteration suggesting left pleural effusion. Electronically Signed by: Carlos Enrique Heller MD. (05/21/2024 08:54:23 EDT)
--- NOTE | 2024-05-21 11:12 | XRAY ---
CLINICAL HISTORY: fever; elevated WBC COMPARISON: None. TECHNIQUE: X-ray of abdomen, AP views. FINDINGS: Dilated gas and fecal matter loaded bowel loops, correlation with CT is needed if clinically warranted. No radiopaque calculus was seen within the renal areas, the right ureter, or the urinary bladder. No free air around the falciform ligament. Degenerative changes are seen in the visualized spine. Signs of instrumentation involving the vertebral bodies from L2 to S1. IMPRESSION: Dilated gas and fecal matter loaded bowel loops, correlation with CT is needed if clinically warranted. Electronically Signed by: Carlos Enrique Heller MD. (05/21/2024 11:08:34 EDT)
--- NOTE | 2024-05-21 12:40 | PCM.NOTE ---
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 GERD, COPD, epilepsy, depression, anxiety, and recurrent aspiration pneumonia. He presented to our ED for the second time in 24 hours. Patient was in our ED last night. Patient complained of weakness. Patient was discharged home. Patient is here with his sister again today She states that patient spiked a fever last night. Currently afebrile. Patient complains of some shortness of breath. He admits to drinking non-thickend liquids again. Sister said he sneaks drinks. Patient was hypoxic on room air upon arrival. Patient normally does not require oxygen. Patient placed on 3 L nasal cannula. O2 sat 97%. Patient states he feels better after O2 applied. Symptoms are mild to moderate in intensity. No specific worsening or improving factors. CXR in ER showed BLLL pneumonia and started on IV antibiotics. Lactic acid 2.1 @ 13:26., repeat lab pending. Will have PT eval and treat for weakness. He denies CP, Abd. pain, N/V/D. 05/19/24 Pt resting in bed. Per PT pt is not acting himself today and seems somewhat more confused than usual and leaning to one side. CT head ordered for further evaluation. WBC elevated at 12.6, continue IV antibiotics for pneumonia. Pt states he overall does not feel well today. He denies CP, Abd pain, N/V/D. 05/20/24 Pt resting in bed unresponsive. Overnight pt began to decline and became hypoxic and placed on bipap. He was unable to tolerate this and family asked for this to be removed. Family was called in and continues to want pt to be a DNR and no bipap. They originally wanted comfort measures then changed their mind and wanted to try a change in antibiotics. Pt is now on hiflow/ non-rebreather O2 with O2 sat of 88%, HR 150's, and RR 40. He continues to be unresponsive. Dr. Harris pt's pricing intern again notified and he recommended comfort measures. Discussed with case management and hospice consulted. Dr. Darnell also discussed plan of care with pt family. Family reported they want to try stronger antibiotics for 48 hours and if no change then comfort measures. Christine placed by nursing as pt has been incontinent since unresponsive. Per nursing they thought he was uncircumcised and unable to move foreskin forward. Pt appears circumcised to me and skin would not need to be pulled forward in this case. He does have some redness of frenulum, antibiotic ointment ordered BID. Nursing made aware to monitor for edema. 05/21/24 Pt non-responsive this A.M. Around noon pt became more awake and alert, tracking people in room. Fever coming down with ice pack, rectal tylenol and cooling pad. BP, HR, and RR elevated- Pt continues to be septic, stat lactic acid ordered. CXR improving, he is on NRB with O2 at 91%. CT abd ordered as KUB shows dilated bowel and stool. Repeat BC x2 both negative, UC negative. Na+153 -1/2 NS at 50ml/hr started. Continue Levaquin and vancomycin. Redness of foreskin improved today. - Review of Systems Constitutional: Fever, No Chills Eyes: No Symptoms Ears, Nose, & Throat: No Symptoms Respiratory: No Cough, No Short Of Breath Cardiac: No Chest Pain, No Edema, No Syncope Abdominal/Gastrointestinal: No Abdominal Pain, No Nausea, No Vomiting, No Diarrhea Genitourinary Symptoms: No Dysuria Musculoskeletal: No Back Pain, No Neck Pain Skin: No Rash Neurological: No Dizziness, No Focal Weakness, No Sensory Changes Psychological: No Symptoms Endocrine: No Symptoms Hematologic/Lymphatic: No Symptoms Immunological/Allergic: No Symptoms Objective Exam General Appearance: mild distress, alert Neurologic Exam: alert, cooperative, sensation nml, motor weakness, No motor deficits Skin Exam: normal color, warm, dry Eye Exam: PERRL, EOMI, eyes nml inspection Ears, Nose, Throat Exam: normal ENT inspection, pharynx normal, moist mucous membranes Neck Exam: normal inspection, non-tender, supple, full range of motion Respiratory Exam: crackles/rales, No respiratory distress Cardiovascular Exam: regular rate/rhythm, normal heart sounds Gastrointestinal/Abdomen Exam: soft, No tenderness, No mass Extremity Exam: normal inspection, normal range of motion Back Exam: normal inspection, normal range of motion, No CVA tenderness, No vertebral tenderness Male Genitalia Exam: deferred Rectal Exam: deferred Objective Data Vital Signs: Vital Signs - 24 hr Temp Pulse Resp BP Pulse Ox 05/21/24 10:53 103.5 F 05/21/24 08:30 103.8 F 05/21/24 08:00 103.5 F 156 H 43 H 180/85 91 L 05/21/24 07:14 92 L 05/21/24 04:00 102.5 F 144 H 37 H 144/68 93 L 05/21/24 00:00 102.1 F 127 H 30 H 140/69 93 L 05/20/24 20:00 101.6 F 122 H 32 H 132/66 93 L 05/20/24 18:55 94 L 05/20/24 16:51 102.6 F 122 H 23 132/64 93 L 05/20/24 14:48 128 H 40 H 94 L 05/20/24 14:05 103 F Pain Assessment - Last Documented Pain Intensity 3 Pain Scale Used 0-10 Pain Scale Intake and Output: Intake & Output 05/19/24 05/20/24 05/21/24 05/22/24 11:59 11:59 11:59 11:59 Intake Total 820 530 358 Output Total [id number] Balance -2076 -433 -1393 Weight 71 kg 71 kg Lab Results: Lab Results-Last 24 Hours 05/20/24 05/20/24 05/21/24 Range/Units 16:24 22:16 04:30 WBC 13.1 H (4.23-9.07) x10^3/uL RBC 4.59 L (4.63-6.08) x10^6/uL Hgb 13.7 (13.7-17.5) g/dL Hct 43.0 (40.1-51.0) % MCV 93.7 H (79.0-92.2) fL MCH 29.8 (25.7-32.2) pg MCHC 31.9 L (32.3-36.5) g/dL RDW 14.5 H (11.6-14.4) % Plt Count 233 (163-337) x10^3/uL MPV 10.7 (9.4-12.4) fL Sodium (135-145) mmol/L Potassium (3.5-5.1) mmol/L Chloride (98-107) mmol/L Carbon Dioxide (22-30) mmol/L Anion Gap (5-15) MEQ/L BUN (9-20) mg/dL Creatinine (0.66-1.25) mg/dL Estimated GFR ML/MIN Glucose (74-106) mg/dL POC Glucometer 234 H 195 H (74 to 106) mg/dL Calcium (8.4-10.2) mg/dL Total Bilirubin (0.2-1.3) mg/dL AST (17-59) U/L ALT (0-50) U/L Alkaline Phosphatase (38-126) U/L Serum Total Protein (6.3-8.2) g/dL Albumin (3.5-5.0) g/dL 05/21/24 05/21/24 05/21/24 Range/Units 04:30 04:53 07:40 WBC (4.23-9.07) x10^3/uL RBC (4.63-6.08) x10^6/uL Hgb (13.7-17.5) g/dL Hct (40.1-51.0) % MCV (79.0-92.2) fL MCH (25.7-32.2) pg MCHC (32.3-36.5) g/dL RDW (11.6-14.4) % Plt Count (163-337) x10^3/uL MPV (9.4-12.4) fL Sodium 153 H* (135-145) mmol/L Potassium 3.8 (3.5-5.1) mmol/L Chloride 111 H (98-107) mmol/L Carbon Dioxide 27 (22-30) mmol/L Anion Gap 18.7 H (5-15) MEQ/L BUN 52 H (9-20) mg/dL Creatinine 1.48 H (0.66-1.25) mg/dL Estimated GFR 51.5 ML/MIN Glucose 222 H (74-106) mg/dL POC Glucometer 209 H 215 H (74 to 106) mg/dL Calcium 10.2 (8.4-10.2) mg/dL Total Bilirubin 0.70 (0.2-1.3) mg/dL AST 67 H (17-59) U/L ALT 36 (0-50) U/L Alkaline Phosphatase 53 (38-126) U/L Serum Total Protein 7.8 (6.3-8.2) g/dL Albumin 4.0 (3.5-5.0) g/dL Radiology Exams: Radiology Procedures Category Date Time Status CHEST 1 VIEW (PORTABLE) Stat Exams 05/21/24 08:14 Completed KUB Stat Exams 05/21/24 09:41 Completed Portable Chest [CHEST 1 VIEW (PORTABLE)] Stat Exams 05/20/24 03:43 Completed Assessment/Plan (1) Bilateral pneumonia Current Visit: No Status: Acute Code(s): J18.9 - PNEUMONIA, UNSPECIFIED ORGANISM (2) Mononucleosis Current Visit: Yes Status: Acute Code(s): B27.90 - INFECTIOUS MONONUCLEOSIS, UNSPECIFIED WITHOUT COMPLICATION (3) Generalized weakness Current Visit: Yes Status: Acute Code(s): R53.1 - WEAKNESS (4) Lactic acidosis Current Visit: Yes Status: Acute Code(s): E87.20 - ACIDOSIS, UNSPECIFIED (5) Epilepsy Current Visit: No Status: Chronic Code(s): G40.909 - EPILEPSY, UNSP, NOT INTRACTABLE, WITHOUT STATUS EPILEPTICUS (6) DM2 (diabetes mellitus, type 2) Current Visit: No Status: Chronic (7) Depression Current Visit: No Status: Chronic Code(s): F32.9 - MAJOR DEPRESSIVE DISORDER, SINGLE EPISODE, UNSPECIFIED (8) Hx of aspiration pneumonitis Current Visit: No Status: Chronic Code(s): Z87.09 - PERSONAL HISTORY OF OTHER DISEASES OF THE RESPIRATORY SYSTEM (9) Hx of traumatic brain injury Current Visit: No Status: Chronic Code(s): Z87.820 - PERSONAL HISTORY OF TRAUMATIC BRAIN INJURY (10) Iron deficiency anemia Current Visit: No Status: Chronic Code(s): D50.9 - IRON DEFICIENCY ANEMIA, UNSPECIFIED (11) BPH (benign prostatic hyperplasia) Current Visit: Yes Status: Chronic Code(s): N40.0 - BENIGN PROSTATIC HYPERPLASIA WITHOUT LOWER URINRY TRACT SYMP (12) GERD (gastroesophageal reflux disease) Current Visit: Yes Status: Acute Code(s): K21.9 - GASTRO-ESOPHAGEAL REFLUX DISEASE WITHOUT ESOPHAGITIS (13) COPD (chronic obstructive pulmonary disease) Current Visit: Yes Status: Acute Assessment & Plan: (1) Bilateral pneumonia Current Visit: No Status: Acute Assessment & Plan: - Likely aspiration pneumonia as pt has a hx of this and is to be on thickened liquids. - Started on Doxy IV in ER- continue - Tele - BC X2 pending - 3LNC 94% - CBC reviewed - WBC 11.6 - CXR reviewed - doreen ortega 05/19 - CBC and CMP reviewed - WBC 12.6 - Continue IV antibiotic - 3lNC 96% - Pulmonology consulted - an no new orders gave 05/20 - rapid decline overnight - family refuses intubation or bipap - DNR/SCO - Pt on NRB 88%, RR 40, HR 130-150- ST - Pt unresponsive - Repeat CXR reviewed - CBC, CMP reviewed - Antibiotics changed to Levaquin and vancomycin - Pulmonology notfied again of pt decline - no changes and recommended comfort care - Hospice consult - CBC and CMP reviewed - WBC 11.7 - BX x2 negative - fever 102 - repeat BC x2 ordered - Levaquin and Vancomycin 05/21 - Lactic acid 1.3 - Pt waking up and responding - CBC, CMP reviewed - Fever 103- tylenol, ice packs, cooling pad - repeat BCx2 negative - repeat CXR improved - Pulm not available today - WBC 13.1 - HR, Resp, BP elevated - NRB 91% - Continue IV antibiotics Code(s): J18.9 - PNEUMONIA, UNSPECIFIED ORGANISM (2) Mononucleosis Current Visit: Yes Status: Acute Assessment & Plan: - incidental finding on testing in ER - Supportive care. Code(s): B27.90 - INFECTIOUS MONONUCLEOSIS, UNSPECIFIED WITHOUT COMPLICATION (3) Generalized weakness Current Visit: Yes Status: Acute Assessment & Plan: - PT eval and treat. 05/19 - increased weakness and confusion per PT - Head CT w/o contrast- negative for acute concern 05/20 - pt unresponsive today 05/20 - Pt waking up today- more responsive Code(s): R53.1 - WEAKNESS (4) Lactic acidosis Current Visit: Yes Status: Acute Assessment & Plan: - LA 2.1 @ 13:26- no IVF gave in ER - ordered to recheck at 15:30 in ER - Consider PO challenge d/t fluid shortage - 2:2 pneumonia - repeat LA 0.8- resolved 05/21 - LA 1.3 Code(s): E87.20 - ACIDOSIS, UNSPECIFIED (5) Epilepsy Current Visit: No Status: Chronic Assessment & Plan: - Continue Depakote Code(s): G40.909 - EPILEPSY, UNSP, NOT INTRACTABLE, WITHOUT STATUS EPILEPTICUS (6) DM2 (diabetes mellitus, type 2) Current Visit: No Status: Chronic Assessment & Plan: - Carb Consistent diet - A1C 7.36, 04/22/24 - accuchecks AC/HS, low dose S/S. (7) Depression Current Visit: No Status: Chronic Assessment & Plan: - Continue home meds Code(s): F32.9 - MAJOR DEPRESSIVE DISORDER, SINGLE EPISODE, UNSPECIFIED (8) Hx of aspiration pneumonitis Current Visit: No Status: Chronic Assessment & Plan: - With previous admissions - Continue thickened liquids. Code(s): Z87.09 - PERSONAL HISTORY OF OTHER DISEASES OF THE RESPIRATORY SYSTEM (9) Hx of traumatic brain injury Current Visit: No Status: Chronic Assessment & Plan: - Noted, adds to complexity - Pt has a hx of aspiration pneumonia from drinking non- thickened liquids. He reports being thirsty and not being to control himself. Code(s): Z87.820 - PERSONAL HISTORY OF TRAUMATIC BRAIN INJURY (10) Iron deficiency anemia Current Visit: No Status: Chronic Assessment & Plan: - Continue ferrous sulfate - trend hgb - Hgb 13.1 05/08 - Hgb 12.1 05/09 - hgb 14.6 05/10 - Hgb 13.7 Code(s): D50.9 - IRON DEFICIENCY ANEMIA, UNSPECIFIED (11) BPH (benign prostatic hyperplasia) Current Visit: Yes Status: Chronic Assessment & Plan: - Continue flomax 05/20 - urinary incontinence since unresponsive- christine placed - UC negative Code(s): N40.0 - BENIGN PROSTATIC HYPERPLASIA WITHOUT LOWER URINRY TRACT SYMP (12) GERD (gastroesophageal reflux disease) Current Visit: Yes Status: Acute Assessment & Plan: - Continue PPI Code(s): K21.9 - GASTRO-ESOPHAGEAL REFLUX DISEASE WITHOUT ESOPHAGITIS (13) COPD (chronic obstructive pulmonary disease) Current Visit: Yes Status: Acute Assessment & Plan: - Continue home meds 05/19 - 3lNC 96% 05/20 - rapid decline overnight - family refuses intubation or bipap - Pt on NRB 88%, RR 40, HR 130-150- ST - Pt unresponsive - Repeat CXR reviewed - see above pneumonia plan 05/20 - see above pneumonia plan (14) Hypernatremia Current Visit: Yes Status: Acute Assessment & Plan: - Na+ 153- recheck at 1600 - 1/2 NS at 75 ml/hr Code(s): E87.0 - HYPEROSMOLALITY AND HYPERNATREMIA (15) SEAN (acute kidney injury) Current Visit: Yes Status: Acute Assessment & Plan: - creat 1.48, baseline 1.06 - IVF Code(s): N17.9 - ACUTE KIDNEY FAILURE, UNSPECIFIED (16) Gaseous distention of intestine determined by X-ray Current Visit: Yes Status: Acute Assessment & Plan: - KUB reviewed - CT abd/ pelvis ordered - + constipation- Bisacodyl TN x1 now gave Code(s): K63.89 - OTHER SPECIFIED DISEASES OF INTESTINE (17) Sepsis Current Visit: Yes Status: Acute Assessment & Plan: - Lactic acid 1.3 today - Temp > 100.4, RR >20 , HR > 90, WBC > 12 - + pneumonia - 2:2 pneumonia - IVF - IV antibiotics - see pneumonia plan VTE: Loveonx PPI:Omeprazole Next of KIN: Sister D/C plan: 2-3 days Code status: SCO/DNR
[2024-05-21] MEDS: Dulcolax 10 MG SUPP PR ONE (16:17)
--- NOTE | 2024-05-21 17:03 | XRAY ---
CLINICAL HISTORY: dilated bowel COMPARISON: 05/21/2024 KUB. 09:16:57 WHEEL ASSEMBLER TECHNIQUE: Non-contrast CT of the abdomen and pelvis was performed, with the following protocol: axial images, and reconstructed coronal and sagittal images. No intravenous contrast was administered. One of the following dose reduction techniques was utilized for this exam: Automated exposure control, adjustment of the mA and/or kV according to patient size, and use of iterative reconstruction. FINDINGS: Basal chest cuts show bilateral small pleural effusions. with left basal consolidation patch. Abdomen: Liver: Normal in size, shape, and density. No focal lesions, cysts, or masses were identified. Gallbladder and Biliary System: The gallbladder is normal in size and shape. No wall thickening, pericholecystic fluid, or gallstones were identified. Pancreas: Pancreatic head, body, and tail are visualized and appear normal in size and density. No pancreatic masses or calcifications were noted. Spleen: Normal in size, shape, and density. Small splenunculi noted. Kidneys and Adrenal Glands: Both kidneys are normal in size, shape, and position. Cortical thickness is within normal limits. No renal calculi or hydronephrosis. Bilateral perinephric mild stranding, in concern for low-grade infection. Adrenal glands are unremarkable. Appendix: No evidence of appendiceal abscess or perforation. Pelvis: Urinary Bladder: empty, with Souza`s catheter in place, and air densities likely iatrogenic. Peritoneal and Retroperitoneal Structures: No free fluid or abnormal fluid collections were identified within the abdomen or pelvis. No lymphadenopathy was noted. Bowel: Distended colonic segments with fecal load, in concern for chronic constipation, no proximal obstruction. Bones and Soft Tissues: Prior lumbo-sacral fixation. Grade II anterolisthesis of L4 over L5. Degenerative changes in the visualized spine, with marginal osteophytes. IMPRESSION: 1. Distended colonic segments with hard fecal material, in concern for chronic constipation, no proximal obstruction 2. Basal chest cuts show bilateral small pleural effusions. with left basal consolidation patch. 3. Bilateral perinephric mild stranding, in concern for low-grade infection. 4. Grade II anterolisthesis of L4 over L5. 5. Comarpison with prior same-day Xray shows more detailed findings. Electronically Signed by: Carlos Enrique Heller MD. (05/21/2024 16:58:26 EDT)
[2024-05-21] MEDS: Lasix 40 MG/4 ML IV ONE (17:47)
[2024-05-21] MEDS: DULCOLAX 5 MG PO ONE (19:52)
[2024-05-21] MEDS: Lactated Ringers 1,000 ML IV SCH (19:53)
[2024-05-22 06:35] LABS: Hematocrit 44.4 % (40.1-51.0); Hemoglobin 13.5 g/dL (13.7-17.5); Mean Cell Volume 96.9 fL (79.0-92.2); Mean Corpuscular Hemoglobin 29.5 pg (25.7-32.2); Mean Corpuscular Hgb Concent. 30.4 g/dL (32.3-36.5); Mean Platelet Volume 10.6 fL (9.4-12.4); Platelet Count 251 x10^3/uL (163-337); Red Blood Count 4.58 x10^6/uL (4.63-6.08); Red Cell Distribution Width 14.6 % (11.6-14.4); White Blood Count 13.3 x10^3/uL (4.23-9.07)
[2024-05-22 06:51] LABS: ALBUMIN 3.8 g/dL (3.5-5.0); ANION GAP 17.4 MEQ/L (5-15); BILIRUBIN,TOTAL 0.5 mg/dL (0.2-1.3); Calcium 10.1 mg/dL (8.4-10.2); Creatinine 1 1.51 mg/dL (0.66-1.25); EST GLOMERULAR FILTRATION RATE 50.3 ML/MIN; Potassium 3.4 mmol/L (3.5-5.1); Total Protein 7.6 g/dL (6.3-8.2)
[2024-05-22] MEDS: VANCOMYCIN 1 GRAM/200 ML BAG 1 GM/200 ML PIGGYBACK IV SCH (08:23)
[2024-05-22] MEDS: POTASSIUM CHLORIDE 20 mEq IN WATER 100ML 100 ML IV SCH (08:23)
[2024-05-22] MEDS: Dextrose 5%/Water IV Soln. 1000 ML 1,000 ML IV SCH (09:50)
[2024-05-22] MEDS: Transderm Scop 1.5MG Patch TOP SCH (10:19)
[2024-05-22] MEDS: HUMALOG SQ PRN (12:14)
[2024-05-22] MEDS: APRESOLINE 20 MG/ML INJ IV PRN (12:27)
--- NOTE | 2024-05-22 12:37 | PCM.NOTE ---
Date and Time: 05/22/24 1227 Subjective Assessment: 05/18/24 is a 69 year old male with PMHX of hypertension, type II diabetes, some cognitive dysfunction from previous traumatic brain injury, BPH, hyperlipidemia. GERD, COPD, epilepsy, depression, anxiety, and recurrent aspiration pneumonia. He presented to our ED for the second time in 24 hours. Patient was in our ED last night. Patient complained of weakness. Patient was discharged home. Patient is here with his sister again today She states that patient spiked a fever last night. Currently afebrile. Patient complains of some shortness of breath. He admits to drinking non-thickend liquids again. Sister said he sneaks drinks. Patient was hypoxic on room air upon arrival. Patient normally does not require oxygen. Patient placed on 3 L nasal cannula. O2 sat 97%. Patient states he feels better after O2 applied. Symptoms are mild to moderate in intensity. No specific worsening or improving factors. CXR in ER showed BLLL pneumonia and started on IV antibiotics. Lactic acid 2.1 @ 13:26., repeat lab pending. Will have PT eval and treat for weakness. He denies CP, Abd. pain, N/V/D. 05/19/24 Pt resting in bed. Per PT pt is not acting himself today and seems somewhat more confused than usual and leaning to one side. CT head ordered for further evaluation. WBC elevated at 12.6, continue IV antibiotics for pneumonia. Pt states he overall does not feel well today. He denies CP, Abd pain, N/V/D. 05/20/24 Pt resting in bed unresponsive. Overnight pt began to decline and became hypoxic and placed on bipap. He was unable to tolerate this and family asked for this to be removed. Family was called in and continues to want pt to be a DNR and no bipap. They originally wanted comfort measures then changed their mind and wanted to try a change in antibiotics. Pt is now on hiflow/ non-rebreather O2 with O2 sat of 88%, HR 150's, and RR 40. He continues to be unresponsive. Dr. Harris pt's director meetings again notified and he recommended comfort measures. Discussed with case management and hospice consulted. Dr. Darnell also discussed plan of care with pt family. Family reported they want to try stronger antibiotics for 48 hours and if no change then comfort measures. Christine placed by nursing as pt has been incontinent since unresponsive. Per nursing they thought he was uncircumcised and unable to move foreskin forward. Pt appears circumcised to me and skin would not need to be pulled forward in this case. He does have some redness of frenulum, antibiotic ointment ordered BID. Nursing made aware to monitor for edema. 05/21/24 Pt non-responsive this A.M. Around noon pt became more awake and alert, tracking people in room. Fever coming down with ice pack, rectal tylenol and cooling pad. BP, HR, and RR elevated- Pt continues to be septic, stat lactic acid ordered. CXR improving, he is on NRB with O2 at 91%. CT abd ordered as KUB shows dilated bowel and stool. Repeat BC x2 both negative, UC negative. Na+153 -1/2 NS at 50ml/hr started. Continue Levaquin and vancomycin. Redness of foreskin improved today. 05/22/24 Pt resting in bed. He is waking up, trying to talk, and responding to commands. Will start pt on a clear liquid, pudding thick diet today. He has not ate for 2 days d/t being so ill and non-responsive. Na+ continues to be elevated at 155 today D5W @ 100 ml/hr started. High dose s/s insulin started. Creat 1.5 and Lasix was gave yesterday d/t coarse wet lung sounds. Lungs sounds continue to be coarse but improved. This AM he was on NRB 100% at 93%. Repeat BC x2 and UC negative. Around noon pt became SOB again and family ok with pt being placed on Bipap. He is tolerating well at this time. Pt continued to have a temp last night but improved today. Continue IV antibiotic, but stop vancomycin since cultures negative. K+ 3.4 and replaced. - Review of Systems Constitutional: Weakness, No Fever, No Chills Eyes: No Symptoms Ears, Nose, & Throat: No Symptoms Respiratory: Short Of Breath, No Cough Cardiac: No Chest Pain, No Edema, No Syncope Abdominal/Gastrointestinal: No Abdominal Pain, No Nausea, No Vomiting, No Diarrhea Genitourinary Symptoms: No Dysuria Musculoskeletal: No Back Pain, No Neck Pain Skin: No Rash Neurological: No Dizziness, No Focal Weakness, No Sensory Changes Psychological: No Symptoms Endocrine: No Symptoms Hematologic/Lymphatic: No Symptoms Immunological/Allergic: No Symptoms Objective Exam General Appearance: no apparent distress, alert Neurologic Exam: alert, oriented x 3, cooperative, normal mood/affect, sensation nml, motor weakness, No motor deficits Skin Exam: normal color, warm, dry Eye Exam: PERRL, EOMI, eyes nml inspection Ears, Nose, Throat Exam: normal ENT inspection, pharynx normal, moist mucous membranes Neck Exam: normal inspection, non-tender, supple, full range of motion Respiratory Exam: crackles/rales, No respiratory distress Cardiovascular Exam: regular rate/rhythm, normal heart sounds Gastrointestinal/Abdomen Exam: soft, No tenderness, No mass Extremity Exam: normal inspection, normal range of motion Back Exam: normal inspection, normal range of motion, No CVA tenderness, No vertebral tenderness Male Genitalia Exam: deferred Rectal Exam: deferred Objective Data Vital Signs: Vital Signs - 24 hr Temp Pulse Resp BP Pulse Ox 05/22/24 11:00 101 H 20 93 L 05/22/24 07:48 97.3 F 99 H 21 164/90 93 L 05/22/24 04:00 99.1 F 105 H 18 143/77 92 L 05/22/24 00:00 99.9 F 113 H 21 139/84 93 L 05/21/24 20:00 100.9 F 130 H 26 H 138/81 91 L 05/21/24 19:08 130 H 28 H 92 L 05/21/24 19:07 92 L 05/21/24 16:47 101 F 129 H 30 H 164/85 90 L 05/21/24 12:55 136 H 23 140/84 97 Pain Assessment - Last Documented Pain Intensity 3 Pain Scale Used 0-10 Pain Scale Intake and Output: Intake & Output 05/20/24 05/21/24 05/22/24 05/23/24 11:59 11:59 11:59 11:59 Intake Total 920 095 3172 Output Total 953 6984 2200 Balance -558 -9466 -463 Weight 71 kg Lab Results: Lab Results-Last 24 Hours 05/21/24 05/21/24 05/21/24 Range/Units 12:40 13:02 16:22 WBC (4.23-9.07) x10^3/uL RBC (4.63-6.08) x10^6/uL Hgb (13.7-17.5) g/dL Hct (40.1-51.0) % MCV (79.0-92.2) fL MCH (25.7-32.2) pg MCHC (32.3-36.5) g/dL RDW (11.6-14.4) % Plt Count (163-337) x10^3/uL MPV (9.4-12.4) fL Sodium 155 H* (135-145) mmol/L Potassium (3.5-5.1) mmol/L Chloride (98-107) mmol/L Carbon Dioxide (22-30) mmol/L Anion Gap (5-15) MEQ/L BUN (9-20) mg/dL Creatinine (0.66-1.25) mg/dL Estimated GFR ML/MIN Glucose (74-106) mg/dL POC Glucometer 206 H (74 to 106) mg/dL Lactic Acid 1.3 (0.4-2.0) Calcium (8.4-10.2) mg/dL Magnesium (1.6-2.3) mg/dL Total Bilirubin (0.2-1.3) mg/dL AST (17-59) U/L ALT (0-50) U/L Alkaline Phosphatase (38-126) U/L Serum Total Protein (6.3-8.2) g/dL Albumin (3.5-5.0) g/dL 05/21/24 05/21/24 05/21/24 Range/Units 16:37 20:16 23:54 WBC (4.23-9.07) x10^3/uL RBC (4.63-6.08) x10^6/uL Hgb (13.7-17.5) g/dL Hct (40.1-51.0) % MCV (79.0-92.2) fL MCH (25.7-32.2) pg MCHC (32.3-36.5) g/dL RDW (11.6-14.4) % Plt Count (163-337) x10^3/uL MPV (9.4-12.4) fL Sodium (135-145) mmol/L Potassium (3.5-5.1) mmol/L Chloride (98-107) mmol/L Carbon Dioxide (22-30) mmol/L Anion Gap (5-15) MEQ/L BUN (9-20) mg/dL Creatinine (0.66-1.25) mg/dL Estimated GFR ML/MIN Glucose (74-106) mg/dL POC Glucometer 246 H 250 H 242 H (74 to 106) mg/dL Lactic Acid (0.4-2.0) Calcium (8.4-10.2) mg/dL Magnesium (1.6-2.3) mg/dL Total Bilirubin (0.2-1.3) mg/dL AST (17-59) U/L ALT (0-50) U/L Alkaline Phosphatase (38-126) U/L Serum Total Protein (6.3-8.2) g/dL Albumin (3.5-5.0) g/dL 05/22/24 05/22/24 05/22/24 Range/Units 03:19 05:38 05:38 WBC 13.3 H (4.23-9.07) x10^3/uL RBC 4.58 L (4.63-6.08) x10^6/uL Hgb 13.5 L (13.7-17.5) g/dL Hct 44.4 (40.1-51.0) % MCV 96.9 H (79.0-92.2) fL MCH 29.5 (25.7-32.2) pg MCHC 30.4 L (32.3-36.5) g/dL RDW 14.6 H (11.6-14.4) % Plt Count 251 (163-337) x10^3/uL MPV 10.6 (9.4-12.4) fL Sodium 155 H* (135-145) mmol/L Potassium 3.4 L (3.5-5.1) mmol/L Chloride 114 H (98-107) mmol/L Carbon Dioxide 28 (22-30) mmol/L Anion Gap 17.4 H (5-15) MEQ/L BUN 68 H (9-20) mg/dL Creatinine 1.51 H (0.66-1.25) mg/dL Estimated GFR 50.3 ML/MIN Glucose 273 H (74-106) mg/dL POC Glucometer 280 H (74 to 106) mg/dL Lactic Acid (0.4-2.0) Calcium 10.1 (8.4-10.2) mg/dL Magnesium (1.6-2.3) mg/dL Total Bilirubin 0.50 (0.2-1.3) mg/dL AST 51 (17-59) U/L ALT 30 (0-50) U/L Alkaline Phosphatase 57 (38-126) U/L Serum Total Protein 7.6 (6.3-8.2) g/dL Albumin 3.8 (3.5-5.0) g/dL 05/22/24 05/22/24 05/22/24 Range/Units 07:44 08:55 12:07 WBC (4.23-9.07) x10^3/uL RBC (4.63-6.08) x10^6/uL Hgb (13.7-17.5) g/dL Hct (40.1-51.0) % MCV (79.0-92.2) fL MCH (25.7-32.2) pg MCHC (32.3-36.5) g/dL RDW (11.6-14.4) % Plt Count (163-337) x10^3/uL MPV (9.4-12.4) fL Sodium (135-145) mmol/L Potassium (3.5-5.1) mmol/L Chloride (98-107) mmol/L Carbon Dioxide (22-30) mmol/L Anion Gap (5-15) MEQ/L BUN (9-20) mg/dL Creatinine (0.66-1.25) mg/dL Estimated GFR ML/MIN Glucose (74-106) mg/dL POC Glucometer 232 H 267 H (74 to 106) mg/dL Lactic Acid (0.4-2.0) Calcium (8.4-10.2) mg/dL Magnesium 3.0 H (1.6-2.3) mg/dL Total Bilirubin (0.2-1.3) mg/dL AST (17-59) U/L ALT (0-50) U/L Alkaline Phosphatase (38-126) U/L Serum Total Protein (6.3-8.2) g/dL Albumin (3.5-5.0) g/dL Radiology Exams: Radiology Procedures Category Date Time Status ABDOMEN AND PELVIS W/0 CONTRAS [CT] Stat Exams 05/21/24 12:31 Completed CHEST 1 VIEW (PORTABLE) Stat Exams 05/21/24 08:14 Completed KUB Stat Exams 05/21/24 09:41 Completed Multi-Disciplinary Progress Notes: Multi-Disciplinary Progress Notes 05/21/24 13:58 Case Management Note by Nadege Brand PATIENT STILL SIGNIFICANTLY SICK- WILL DELAY ANY FURTHER DC PLANNING AT THIS TIME. PATIENT CURRENTLY ALREADY GETTING 24 HR CARE AT HOME. PATIENT WILL LIKELY NEED A REHAB STAY WHEN HE BECOMES STABLE FOR DC. Initialized on 05/21/24 13:58 - END OF NOTE Assessment/Plan (1) Bilateral pneumonia Current Visit: No Status: Acute Code(s): J18.9 - PNEUMONIA, UNSPECIFIED ORGANISM (2) Mononucleosis Current Visit: Yes Status: Acute Code(s): B27.90 - INFECTIOUS MONONUCLEOSIS, UNSPECIFIED WITHOUT COMPLICATION (3) Generalized weakness Current Visit: Yes Status: Acute Code(s): R53.1 - WEAKNESS (4) Lactic acidosis Current Visit: Yes Status: Acute Code(s): E87.20 - ACIDOSIS, UNSPECIFIED (5) Epilepsy Current Visit: No Status: Chronic Code(s): G40.909 - EPILEPSY, UNSP, NOT INTRACTABLE, WITHOUT STATUS EPILEPTICUS (6) DM2 (diabetes mellitus, type 2) Current Visit: No Status: Chronic (7) Depression Current Visit: No Status: Chronic Code(s): F32.9 - MAJOR DEPRESSIVE DISORDER, SINGLE EPISODE, UNSPECIFIED (8) Hx of aspiration pneumonitis Current Visit: No Status: Chronic Code(s): Z87.09 - PERSONAL HISTORY OF OTHER DISEASES OF THE RESPIRATORY SYSTEM (9) Hx of traumatic brain injury Current Visit: No Status: Chronic Code(s): Z87.820 - PERSONAL HISTORY OF TRAUMATIC BRAIN INJURY (10) Iron deficiency anemia Current Visit: No Status: Chronic Code(s): D50.9 - IRON DEFICIENCY ANEMIA, UNSPECIFIED (11) BPH (benign prostatic hyperplasia) Current Visit: Yes Status: Chronic Code(s): N40.0 - BENIGN PROSTATIC HYPERPLASIA WITHOUT LOWER URINRY TRACT SYMP (12) GERD (gastroesophageal reflux disease) Current Visit: Yes Status: Acute Code(s): K21.9 - GASTRO-ESOPHAGEAL REFLUX DISEASE WITHOUT ESOPHAGITIS (13) COPD (chronic obstructive pulmonary disease) Current Visit: Yes Status: Acute (14) Hypernatremia Current Visit: Yes Status: Acute Code(s): E87.0 - HYPEROSMOLALITY AND HYPERNATREMIA (15) SEAN (acute kidney injury) Current Visit: Yes Status: Acute Code(s): N17.9 - ACUTE KIDNEY FAILURE, UNSPECIFIED (16) Gaseous distention of intestine determined by X-ray Current Visit: Yes Status: Acute Code(s): K63.89 - OTHER SPECIFIED DISEASES OF INTESTINE (17) Sepsis Current Visit: Yes Status: Acute Assessment & Plan: (1) Bilateral pneumonia Current Visit: No Status: Acute Assessment & Plan: - Likely aspiration pneumonia as pt has a hx of this and is to be on thickened liquids. - Started on Doxy IV in ER- continue - Tele - BC X2 pending - 3LNC 94% - CBC reviewed - WBC 11.6 - CXR reviewed - doreen ortega 05/19 - CBC and CMP reviewed - WBC 12.6 - Continue IV antibiotic - 3lNC 96% - Pulmonology consulted - an no new orders gave 05/20 - rapid decline overnight - family refuses intubation or bipap - DNR/SCO - Pt on NRB 88%, RR 40, HR 130-150- ST - Pt unresponsive - Repeat CXR reviewed - CBC, CMP reviewed - Antibiotics changed to Levaquin and vancomycin - Pulmonology notfied again of pt decline - no changes and recommended comfort care - Hospice consult - CBC and CMP reviewed - WBC 11.7 - BX x2 negative - fever 102 - repeat BC x2 ordered - Levaquin and Vancomycin - Tylenol PA PRN 05/21 - Lactic acid 1.3 - Pt waking up and responding - CBC, CMP reviewed - Fever 103- tylenol, ice packs, cooling pad - repeat BCx2 negative - repeat CXR improved - Pulm not available today - WBC 13.1 - HR, Resp, BP elevated - NRB 91% - Continue IV antibiotics 05/22 - WBC 13.3 - CBC, CMP reviewed - was on 100% NRB- 93% ths AM, then became SOB and placed on BIPAP by RT - Continue Levaquin and stop Vancomycin - Temp 100.9 at 2000 yesterday, 99.9 at 0000, and 99.1 at 0400 Code(s): J18.9 - PNEUMONIA, UNSPECIFIED ORGANISM (2) Mononucleosis Current Visit: Yes Status: Acute Assessment & Plan: - incidental finding on testing in ER - Supportive care. Code(s): B27.90 - INFECTIOUS MONONUCLEOSIS, UNSPECIFIED WITHOUT COMPLICATION (3) Generalized weakness Current Visit: Yes Status: Acute Assessment & Plan: - PT eval and treat. 05/19 - increased weakness and confusion per PT - Head CT w/o contrast- negative for acute concern 05/20 - pt unresponsive today 05/20 - Pt waking up today- more responsive 05/20 - restart Clear liquid diet Code(s): R53.1 - WEAKNESS (4) Lactic acidosis Current Visit: Yes Status: Acute Assessment & Plan: - LA 2.1 @ 13:26- no IVF gave in ER - ordered to recheck at 15:30 in ER - Consider PO challenge d/t fluid shortage - 2:2 pneumonia - repeat LA 0.8- resolved 05/21 - LA 1.3 Code(s): E87.20 - ACIDOSIS, UNSPECIFIED (5) Epilepsy Current Visit: No Status: Chronic Assessment & Plan: - Continue Depakote Code(s): G40.909 - EPILEPSY, UNSP, NOT INTRACTABLE, WITHOUT STATUS EPILEPTICUS (6) DM2 (diabetes mellitus, type 2) Current Visit: No Status: Chronic Assessment & Plan: - Carb Consistent diet - A1C 7.36, 04/22/24 - accuchecks AC/HS, low dose S/S. (7) Depression Current Visit: No Status: Chronic Assessment & Plan: - Continue home meds Code(s): F32.9 - MAJOR DEPRESSIVE DISORDER, SINGLE EPISODE, UNSPECIFIED (8) Hx of aspiration pneumonitis Current Visit: No Status: Chronic Assessment & Plan: - With previous admissions - Continue thickened liquids. Code(s): Z87.09 - PERSONAL HISTORY OF OTHER DISEASES OF THE RESPIRATORY SYSTEM (9) Hx of traumatic brain injury Current Visit: No Status: Chronic Assessment & Plan: - Noted, adds to complexity - Pt has a hx of aspiration pneumonia from drinking non- thickened liquids. He reports being thirsty and not being to control himself. Code(s): Z87.820 - PERSONAL HISTORY OF TRAUMATIC BRAIN INJURY (10) Iron deficiency anemia Current Visit: No Status: Chronic Assessment & Plan: - Continue ferrous sulfate - trend hgb - Hgb 13.1 05/19 - Hgb 12.1 05/20 - hgb 14.6 05/21 - Hgb 13.7 05/22 Code(s): D50.9 - IRON DEFICIENCY ANEMIA, UNSPECIFIED (11) BPH (benign prostatic hyperplasia) Current Visit: Yes Status: Chronic Assessment & Plan: - Continue flomax 05/20 - urinary incontinence since unresponsive- christine placed - UC negative Code(s): N40.0 - BENIGN PROSTATIC HYPERPLASIA WITHOUT LOWER URINRY TRACT SYMP (12) GERD (gastroesophageal reflux disease) Current Visit: Yes Status: Acute Assessment & Plan: - Continue PPI Code(s): K21.9 - GASTRO-ESOPHAGEAL REFLUX DISEASE WITHOUT ESOPHAGITIS (13) COPD (chronic obstructive pulmonary disease) Current Visit: Yes Status: Acute Assessment & Plan: - Continue home meds 05/19 - 3lNC 96% 05/20 - rapid decline overnight - family refuses intubation or bipap - Pt on NRB 88%, RR 40, HR 130-150- ST - Pt unresponsive - Repeat CXR reviewed - see above pneumonia plan 05/20 - see above pneumonia plan (14) Hypernatremia Current Visit: Yes Status: Acute Assessment & Plan: - Na+ 153- recheck at 1600 - 1/2 NS at 75 ml/hr 05/22 - Na+ 155- recheck in 6 hours - Started D5W @ 100ml/hr Code(s): E87.0 - HYPEROSMOLALITY AND HYPERNATREMIA (15) SEAN (acute kidney injury) Current Visit: Yes Status: Acute Assessment & Plan: - creat 1.48, baseline 1.06 - IVF Code(s): N17.9 - ACUTE KIDNEY FAILURE, UNSPECIFIED (16) Gaseous distention of intestine determined by X-ray Current Visit: Yes Status: Acute Assessment & Plan: - KUB reviewed - CT abd/ pelvis ordered - + constipation- Bisacodyl PA x1 now gave Code(s): K63.89 - OTHER SPECIFIED DISEASES OF INTESTINE (17) Sepsis Current Visit: Yes Status: Acute Assessment & Plan: - Lactic acid 1.3 today - Temp > 100.4, RR >20 , HR > 90, WBC > 12 - + pneumonia - 2:2 pneumonia - IVF - IV antibiotics - see pneumonia plan VTE: Loveonx PPI:Omeprazole Next of KIN: Sister Carlos/C plan: 2-3 days Code status: SCO/DNR
[2024-05-22] MEDS: MORPHINE SULFATE 2 MG INJ IV PRN (12:44)
[2024-05-22 15:04] LABS: ALBUMIN 3.9 g/dL (3.5-5.0); ANION GAP 19.5 MEQ/L (5-15); BILIRUBIN,TOTAL 0.5 mg/dL (0.2-1.3); Calcium 10.1 mg/dL (8.4-10.2); Creatinine 1 1.11 mg/dL (0.66-1.25); EST GLOMERULAR FILTRATION RATE 72.8 ML/MIN; Total Protein 7.8 g/dL (6.3-8.2)
[2024-05-22 15:10] LABS: Potassium 4.5 mmol/L (3.5-5.1)
[2024-05-23 04:00] LABS: Hematocrit 43.9 % (40.1-51.0); Hemoglobin 13.6 g/dL (13.7-17.5); Mean Cell Volume 96.7 fL (79.0-92.2); Mean Platelet Volume 10.1 fL (9.4-12.4); Platelet Count 232 x10^3/uL (163-337); Red Blood Count 4.54 x10^6/uL (4.63-6.08); Red Cell Distribution Width 14.6 % (11.6-14.4); White Blood Count 17.9 x10^3/uL (4.23-9.07)
[2024-05-23 04:15] LABS: ALBUMIN 3.6 g/dL (3.5-5.0); ANION GAP 13.5 MEQ/L (5-15); BILIRUBIN,TOTAL 0.4 mg/dL (0.2-1.3); Calcium 10.4 mg/dL (8.4-10.2); Creatinine 1 1.04 mg/dL (0.66-1.25); EST GLOMERULAR FILTRATION RATE 78.7 ML/MIN; MAGNESIUM 2.9 mg/dL (1.6-2.3); Total Protein 7.1 g/dL (6.3-8.2)
[2024-05-23] MEDS ORDERED: Lasix 20 MG/2 ML ONE (10:50)
[2024-05-23] MEDS: Lasix 20 MG/2 ML IV ONE (11:21)
[2024-05-23] MEDS: TROUGH DRUG LEVELS IJ ONE (12:09)
--- NOTE | 2024-05-23 13:19 | PCM.NOTE ---
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 GERD, COPD, epilepsy, depression, anxiety, and recurrent aspiration pneumonia. He presented to our ED for the second time in 24 hours. Patient was in our ED last night. Patient complained of weakness. Patient was discharged home. Patient is here with his sister again today She states that patient spiked a fever last night. Currently afebrile. Patient complains of some shortness of breath. He admits to drinking non-thickend liquids again. Sister said he sneaks drinks. Patient was hypoxic on room air upon arrival. Patient normally does not require oxygen. Patient placed on 3 L nasal cannula. O2 sat 97%. Patient states he feels better after O2 applied. Symptoms are mild to moderate in intensity. No specific worsening or improving factors. CXR in ER showed BLLL pneumonia and started on IV antibiotics. Lactic acid 2.1 @ 13:26., repeat lab pending. Will have PT eval and treat for weakness. He denies CP, Abd. pain, N/V/D. 05/19/24 Pt resting in bed. Per PT pt is not acting himself today and seems somewhat more confused than usual and leaning to one side. CT head ordered for further evaluation. WBC elevated at 12.6, continue IV antibiotics for pneumonia. Pt states he overall does not feel well today. He denies CP, Abd pain, N/V/D. 05/20/24 Pt resting in bed unresponsive. Overnight pt began to decline and became hypoxic and placed on bipap. He was unable to tolerate this and family asked for this to be removed. Family was called in and continues to want pt to be a DNR and no bipap. They originally wanted comfort measures then changed their mind and wanted to try a change in antibiotics. Pt is now on hiflow/ non-rebreather O2 with O2 sat of 88%, HR 150's, and RR 40. He continues to be unresponsive. Dr. Harris pt's food operations manager again notified and he recommended comfort measures. Discussed with case management and hospice consulted. Dr. Darnell also discussed plan of care with pt family. Family reported they want to try stronger antibiotics for 48 hours and if no change then comfort measures. Christine placed by nursing as pt has been incontinent since unresponsive. Per nursing they thought he was uncircumcised and unable to move foreskin forward. Pt appears circumcised to me and skin would not need to be pulled forward in this case. He does have some redness of frenulum, antibiotic ointment ordered BID. Nursing made aware to monitor for edema. 05/21/24 Pt non-responsive this A.M. Around noon pt became more awake and alert, tracking people in room. Fever coming down with ice pack, rectal tylenol and cooling pad. BP, HR, and RR elevated- Pt continues to be septic, stat lactic acid ordered. CXR improving, he is on NRB with O2 at 91%. CT abd ordered as KUB shows dilated bowel and stool. Repeat BC x2 both negative, UC negative. Na+153 -1/2 NS at 50ml/hr started. Continue Levaquin and vancomycin. Redness of foreskin improved today. 05/22/24 Pt resting in bed. He is waking up, trying to talk, and responding to commands. Will start pt on a clear liquid, pudding thick diet today. He has not ate for 2 days d/t being so ill and non-responsive. Na+ continues to be elevated at 155 today D5W @ 100 ml/hr started. High dose s/s insulin started. Creat 1.5 and Lasix was gave yesterday d/t coarse wet lung sounds. Lungs sounds continue to be coarse but improved. This AM he was on NRB 100% at 93%. Repeat BC x2 and UC negative. Around noon pt became SOB again and family ok with pt being placed on Bipap. He is tolerating well at this time. Pt continued to have a temp last night but improved today. Continue IV antibiotic, but stop vancomycin since cultures negative. K+ 3.4 and replaced. 05/23 Pt resting in bed. He was doing better this AM and placed on O2 NC but had a few sips of fluids and oxygen dropped and had to be placed back on bipap. Will have ST eval tomorrow. Na+ 152- increased IVF to 125ml/hr. WBC increased to 17.9. Continue Levaquin. Vancomycin stopped as BC x4 negative. Ca+ 10.4 and IV lasix gave x1. He continues to be very weak, PT/OT eval tomorrow. - Review of Systems Constitutional: Weakness, No Fever, No Chills Eyes: No Symptoms Ears, Nose, & Throat: No Symptoms Respiratory: Cough, Short Of Breath Cardiac: No Chest Pain, No Edema, No Syncope Abdominal/Gastrointestinal: No Abdominal Pain, No Nausea, No Vomiting, No Diarrhea Genitourinary Symptoms: No Dysuria Musculoskeletal: No Back Pain, No Neck Pain Skin: No Rash Neurological: No Dizziness, No Focal Weakness, No Sensory Changes Psychological: No Symptoms Endocrine: No Symptoms Hematologic/Lymphatic: No Symptoms Immunological/Allergic: No Symptoms Objective Exam General Appearance: no apparent distress, alert Neurologic Exam: alert, oriented x 3, cooperative, sensation nml, motor weakness, No motor deficits Skin Exam: normal color, warm, dry Eye Exam: PERRL, EOMI, eyes nml inspection Ears, Nose, Throat Exam: normal ENT inspection, pharynx normal, moist mucous membranes Neck Exam: normal inspection, non-tender, supple, full range of motion Respiratory Exam: normal breath sounds, lungs clear, No respiratory distress Cardiovascular Exam: regular rate/rhythm, normal heart sounds Gastrointestinal/Abdomen Exam: soft, No tenderness, No mass Extremity Exam: normal inspection, normal range of motion Back Exam: normal inspection, normal range of motion, No CVA tenderness, No vertebral tenderness Male Genitalia Exam: deferred Rectal Exam: deferred Objective Data Vital Signs: Vital Signs - 24 hr Temp Pulse Resp BP Pulse Ox 05/23/24 11:00 98.2 F 99 H 29 H 139/82 88 L 05/23/24 07:19 82 30 H 96 05/23/24 07:00 98.3 F 82 29 H 128/67 96 05/23/24 03:16 98.0 F 90 35 H 155/72 93 L 05/22/24 23:31 97.1 F 87 25 H 148/75 93 L 05/22/24 21:26 97.1 F 93 H 27 H 134/65 95 05/22/24 17:01 98.5 F 111 H 29 H 160/76 90 L 05/22/24 14:09 180/88 87 L Pain Assessment - Last Documented Pain Intensity 0 Pain Scale Used FLACC Intake and Output: Intake & Output 05/21/24 05/22/24 05/23/24 05/24/24 11:59 11:59 11:59 11:59 Intake Total 289 2106 9053 Output Total 8895 3477 6372 Balance -1267 972 1863 Weight 71 kg Lab Results: Lab Results-Last 24 Hours 05/22/24 05/22/24 05/22/24 Range/Units 14:45 16:09 18:30 WBC (4.23-9.07) x10^3/uL RBC (4.63-6.08) x10^6/uL Hgb (13.7-17.5) g/dL Hct (40.1-51.0) % MCV (79.0-92.2) fL MCH (25.7-32.2) pg MCHC (32.3-36.5) g/dL RDW (11.6-14.4) % Plt Count (163-337) x10^3/uL MPV (9.4-12.4) fL Sodium 152 H* (135-145) mmol/L Potassium 4.5 D 4.3 (3.5-5.1) mmol/L Chloride 115 H (98-107) mmol/L Carbon Dioxide 22 (22-30) mmol/L Anion Gap 19.5 H (5-15) MEQ/L BUN 64 H (9-20) mg/dL Creatinine 1.11 (0.66-1.25) mg/dL Estimated GFR 72.8 ML/MIN Glucose 317 H (74-106) mg/dL POC Glucometer 261 H (74 to 106) mg/dL Calcium 10.1 (8.4-10.2) mg/dL Magnesium (1.6-2.3) mg/dL Total Bilirubin 0.50 (0.2-1.3) mg/dL AST 47 (17-59) U/L ALT 35 (0-50) U/L Alkaline Phosphatase 66 (38-126) U/L Serum Total Protein 7.8 (6.3-8.2) g/dL Albumin 3.9 (3.5-5.0) g/dL Vancomycin Trough (10-20) ug/mL 05/22/24 05/22/24 05/23/24 Range/Units 20:29 23:24 03:23 WBC (4.23-9.07) x10^3/uL RBC (4.63-6.08) x10^6/uL Hgb (13.7-17.5) g/dL Hct (40.1-51.0) % MCV (79.0-92.2) fL MCH (25.7-32.2) pg MCHC (32.3-36.5) g/dL RDW (11.6-14.4) % Plt Count (163-337) x10^3/uL MPV (9.4-12.4) fL Sodium (135-145) mmol/L Potassium (3.5-5.1) mmol/L Chloride (98-107) mmol/L Carbon Dioxide (22-30) mmol/L Anion Gap (5-15) MEQ/L BUN (9-20) mg/dL Creatinine (0.66-1.25) mg/dL Estimated GFR ML/MIN Glucose (74-106) mg/dL POC Glucometer 207 H 226 H 199 H (74 to 106) mg/dL Calcium (8.4-10.2) mg/dL Magnesium (1.6-2.3) mg/dL Total Bilirubin (0.2-1.3) mg/dL AST (17-59) U/L ALT (0-50) U/L Alkaline Phosphatase (38-126) U/L Serum Total Protein (6.3-8.2) g/dL Albumin (3.5-5.0) g/dL Vancomycin Trough (10-20) ug/mL 05/23/24 05/23/24 05/23/24 Range/Units 03:55 03:55 03:55 WBC 17.9 H (4.23-9.07) x10^3/uL RBC 4.54 L (4.63-6.08) x10^6/uL Hgb 13.6 L (13.7-17.5) g/dL Hct 43.9 (40.1-51.0) % MCV 96.7 H (79.0-92.2) fL MCH 30.0 (25.7-32.2) pg MCHC 31.0 L (32.3-36.5) g/dL RDW 14.6 H (11.6-14.4) % Plt Count 232 (163-337) x10^3/uL MPV 10.1 (9.4-12.4) fL Sodium 152 H* (135-145) mmol/L Potassium 4.0 (3.5-5.1) mmol/L Chloride 114 H (98-107) mmol/L Carbon Dioxide 29 (22-30) mmol/L Anion Gap 13.5 (5-15) MEQ/L BUN 56 H (9-20) mg/dL Creatinine 1.04 (0.66-1.25) mg/dL Estimated GFR 78.7 ML/MIN Glucose 230 H (74-106) mg/dL POC Glucometer (74 to 106) mg/dL Calcium 10.4 H (8.4-10.2) mg/dL Magnesium 2.9 H (1.6-2.3) mg/dL Total Bilirubin 0.40 (0.2-1.3) mg/dL AST 36 (17-59) U/L ALT 30 (0-50) U/L Alkaline Phosphatase 55 (38-126) U/L Serum Total Protein 7.1 (6.3-8.2) g/dL Albumin 3.6 (3.5-5.0) g/dL Vancomycin Trough 6.07 L (10-20) ug/mL 05/23/24 05/23/24 Range/Units 06:56 11:12 WBC (4.23-9.07) x10^3/uL RBC (4.63-6.08) x10^6/uL Hgb (13.7-17.5) g/dL Hct (40.1-51.0) % MCV (79.0-92.2) fL MCH (25.7-32.2) pg MCHC (32.3-36.5) g/dL RDW (11.6-14.4) % Plt Count (163-337) x10^3/uL MPV (9.4-12.4) fL Sodium (135-145) mmol/L Potassium (3.5-5.1) mmol/L Chloride (98-107) mmol/L Carbon Dioxide (22-30) mmol/L Anion Gap (5-15) MEQ/L BUN (9-20) mg/dL Creatinine (0.66-1.25) mg/dL Estimated GFR ML/MIN Glucose (74-106) mg/dL POC Glucometer 227 H 294 H (74 to 106) mg/dL Calcium (8.4-10.2) mg/dL Magnesium (1.6-2.3) mg/dL Total Bilirubin (0.2-1.3) mg/dL AST (17-59) U/L ALT (0-50) U/L Alkaline Phosphatase (38-126) U/L Serum Total Protein (6.3-8.2) g/dL Albumin (3.5-5.0) g/dL Vancomycin Trough (10-20) ug/mL Radiology Exams: Radiology Procedures Category Date Time Status ABDOMEN AND PELVIS W/0 CONTRAS [CT] Stat Exams 05/21/24 12:31 Completed Multi-Disciplinary Progress Notes: Multi-Disciplinary Progress Notes 05/23/24 11:59 Respiratory Note by Zainab Diana 0910 PT WANTING OFF BIPAP. PLACED ON 10L OXYMIZER, SPO2 80% INC TO 15L SPO2 89%. AT 1035 NOTIFIED BY RN SPO2 70'S, AT THAT TIME SWITCHED TO HIFLOW 40L AND 85%. 1100 SPO2 70'S ,PT ANXIOUS AND DUSKY. AT THAT TIME PLACED BACK ON BIPAP 16/8 100%, R-18. SPO2 INC TO MID 80'S . PT GIVEN MORPHINE AND IS RESTING WELL. Initialized on 05/23/24 11:59 - END OF NOTE 05/22/24 13:43 Respiratory Note by Zainab Diana 1330 PTS LOC GREATLY IMPROVED. ANSWERING QUESTIONS,AND FOLLOWING COMMANDS. TKEN OFF BIPAP AND PLACED ON 100% NRB, SPO2 89%. Initialized on 05/22/24 13:43 - END OF NOTE 05/22/24 13:25 Respiratory Note by Zainab Diana 1225 SPO2 82 ON 100%NRB, PT IS LESS RESPONSIVE. BIPAP 16/8 100% ,R-18, PT ALSO GIVEN 2 OF MORPHINE. ANR RESTING WELL. Initialized on 05/22/24 13:25 - END OF NOTE Assessment/Plan (1) Bilateral pneumonia Current Visit: No Status: Acute Code(s): J18.9 - PNEUMONIA, UNSPECIFIED ORGANISM (2) Mononucleosis Current Visit: Yes Status: Acute Code(s): B27.90 - INFECTIOUS MONONUCLEOSIS, UNSPECIFIED WITHOUT COMPLICATION (3) Generalized weakness Current Visit: Yes Status: Acute Code(s): R53.1 - WEAKNESS (4) Lactic acidosis Current Visit: Yes Status: Acute Code(s): E87.20 - ACIDOSIS, UNSPECIFIED (5) Epilepsy Current Visit: No Status: Chronic Code(s): G40.909 - EPILEPSY, UNSP, NOT INTRACTABLE, WITHOUT STATUS EPILEPTICUS (6) DM2 (diabetes mellitus, type 2) Current Visit: No Status: Chronic (7) Depression Current Visit: No Status: Chronic Code(s): F32.9 - MAJOR DEPRESSIVE DISORDER, SINGLE EPISODE, UNSPECIFIED (8) Hx of aspiration pneumonitis Current Visit: No Status: Chronic Code(s): Z87.09 - PERSONAL HISTORY OF OTHER DISEASES OF THE RESPIRATORY SYSTEM (9) Hx of traumatic brain injury Current Visit: No Status: Chronic Code(s): Z87.820 - PERSONAL HISTORY OF TRAUMATIC BRAIN INJURY (10) Iron deficiency anemia Current Visit: No Status: Chronic Code(s): D50.9 - IRON DEFICIENCY ANEMIA, UNSPECIFIED (11) BPH (benign prostatic hyperplasia) Current Visit: Yes Status: Chronic Code(s): N40.0 - BENIGN PROSTATIC HYPERPLASIA WITHOUT LOWER URINRY TRACT SYMP (12) GERD (gastroesophageal reflux disease) Current Visit: Yes Status: Acute Code(s): K21.9 - GASTRO-ESOPHAGEAL REFLUX DISEASE WITHOUT ESOPHAGITIS (13) COPD (chronic obstructive pulmonary disease) Current Visit: Yes Status: Acute (14) Hypernatremia Current Visit: Yes Status: Acute Code(s): E87.0 - HYPEROSMOLALITY AND HYPERNATREMIA (15) SEAN (acute kidney injury) Current Visit: Yes Status: Acute Code(s): N17.9 - ACUTE KIDNEY FAILURE, UNSPECIFIED (16) Gaseous distention of intestine determined by X-ray Current Visit: Yes Status: Acute Code(s): K63.89 - OTHER SPECIFIED DISEASES OF INTESTINE (17) Sepsis Current Visit: Yes Status: Acute Assessment & Plan: (1) Bilateral pneumonia Current Visit: No Status: Acute Assessment & Plan: - Likely aspiration pneumonia as pt has a hx of this and is to be on thickened liquids. - Started on Doxy IV in ER- continue - Tele - BC X2 pending - 3LNC 94% - CBC reviewed - WBC 11.6 - CXR reviewed - doreen ortega 05/19 - CBC and CMP reviewed - WBC 12.6 - Continue IV antibiotic - 3lNC 96% - Pulmonology consulted - an no new orders gave 05/20 - rapid decline overnight - family refuses intubation or bipap - DNR/SCO - Pt on NRB 88%, RR 40, HR 130-150- ST - Pt unresponsive - Repeat CXR reviewed - CBC, CMP reviewed - Antibiotics changed to Levaquin and vancomycin - Pulmonology notfied again of pt decline - no changes and recommended comfort care - Hospice consult - CBC and CMP reviewed - WBC 11.7 - BX x2 negative - fever 102 - repeat BC x2 ordered - Levaquin and Vancomycin - Tylenol MS PRN 05/21 - Lactic acid 1.3 - Pt waking up and responding - CBC, CMP reviewed - Fever 103- tylenol, ice packs, cooling pad - repeat BCx2 negative - repeat CXR improved - Pulm not available today - WBC 13.1 - HR, Resp, BP elevated - NRB 91% - Continue IV antibiotics 05/22 - WBC 13.3 - CBC, CMP reviewed - was on 100% NRB- 93% ths AM, then became SOB and placed on BIPAP by RT - Continue Levaquin and stop Vancomycin - Temp 100.9 at 2000 yesterday, 99.9 at 0000, and 99.1 at 0400 05/23 - WBC 17.9 - Vancomycin stopped BC negative - Continue levaquin - no fever overnight - Was on O2 NC and then after drinking needed Bipap again - ST eval tomorrow. - CBC, CMP reviewed Code(s): J18.9 - PNEUMONIA, UNSPECIFIED ORGANISM (2) Mononucleosis Current Visit: Yes Status: Acute Assessment & Plan: - incidental finding on testing in ER - Supportive care. Code(s): B27.90 - INFECTIOUS MONONUCLEOSIS, UNSPECIFIED WITHOUT COMPLICATION (3) Generalized weakness Current Visit: Yes Status: Acute Assessment & Plan: - PT eval and treat. 05/19 - increased weakness and confusion per PT - Head CT w/o contrast- negative for acute concern 05/20 - pt unresponsive today 05/20 - Pt waking up today- more responsive 05/20 - restart Clear liquid diet 05/23 - ST/ PT/OT eval - tomorrow Code(s): R53.1 - WEAKNESS (4) Lactic acidosis Current Visit: Yes Status: Acute Assessment & Plan: - LA 2.1 @ 13:26- no IVF gave in ER - ordered to recheck at 15:30 in ER - Consider PO challenge d/t fluid shortage - 2:2 pneumonia - repeat LA 0.8- resolved 05/21 - LA 1.3 Code(s): E87.20 - ACIDOSIS, UNSPECIFIED (5) Epilepsy Current Visit: No Status: Chronic Assessment & Plan: - Continue Depakote Code(s): G40.909 - EPILEPSY, UNSP, NOT INTRACTABLE, WITHOUT STATUS EPILEPTICUS (6) DM2 (diabetes mellitus, type 2) Current Visit: No Status: Chronic Assessment & Plan: - Carb Consistent diet - A1C 7.36, 04/22/24 - accuchecks AC/HS, low dose S/S. (7) Depression Current Visit: No Status: Chronic Assessment & Plan: - Continue home meds Code(s): F32.9 - MAJOR DEPRESSIVE DISORDER, SINGLE EPISODE, UNSPECIFIED (8) Hx of aspiration pneumonitis Current Visit: No Status: Chronic Assessment & Plan: - With previous admissions - Continue thickened liquids. Code(s): Z87.09 - PERSONAL HISTORY OF OTHER DISEASES OF THE RESPIRATORY SYSTEM (9) Hx of traumatic brain injury Current Visit: No Status: Chronic Assessment & Plan: - Noted, adds to complexity - Pt has a hx of aspiration pneumonia from drinking non- thickened liquids. He reports being thirsty and not being to control himself. Code(s): Z87.820 - PERSONAL HISTORY OF TRAUMATIC BRAIN INJURY (10) Iron deficiency anemia Current Visit: No Status: Chronic Assessment & Plan: - Continue ferrous sulfate - trend hgb - Hgb 13.1 05/19 - Hgb 12.1 05/20 - hgb 14.6 05/21 - Hgb 13.7 05/22 - Hgb 13.5 05/23 - Hgb13.6 Code(s): D50.9 - IRON DEFICIENCY ANEMIA, UNSPECIFIED (11) BPH (benign prostatic hyperplasia) Current Visit: Yes Status: Chronic Assessment & Plan: - Continue flomax 05/20 - urinary incontinence since unresponsive- christine placed - UC negative Code(s): N40.0 - BENIGN PROSTATIC HYPERPLASIA WITHOUT LOWER URINRY TRACT SYMP (12) GERD (gastroesophageal reflux disease) Current Visit: Yes Status: Acute Assessment & Plan: - Continue PPI Code(s): K21.9 - GASTRO-ESOPHAGEAL REFLUX DISEASE WITHOUT ESOPHAGITIS (13) COPD (chronic obstructive pulmonary disease) Current Visit: Yes Status: Acute Assessment & Plan: - Continue home meds 05/19 - 3lNC 96% 05/20 - rapid decline overnight - family refuses intubation or bipap - Pt on NRB 88%, RR 40, HR 130-150- ST - Pt unresponsive - Repeat CXR reviewed - see above pneumonia plan 05/20 - see above pneumonia plan (14) Hypernatremia Current Visit: Yes Status: Acute Assessment & Plan: - Na+ 153- recheck at 1600 - 1/2 NS at 75 ml/hr 05/22 - Na+ 155- recheck in 6 hours - Started D5W @ 100ml/hr 05/23 - Na+ 152 - Increased IVF to 125 ml/hr Code(s): E87.0 - HYPEROSMOLALITY AND HYPERNATREMIA (15) SEAN (acute kidney injury) Current Visit: Yes Status: Acute Assessment & Plan: - creat 1.48, baseline 1.06 - IVF Code(s): N17.9 - ACUTE KIDNEY FAILURE, UNSPECIFIED (16) Gaseous distention of intestine determined by X-ray Current Visit: Yes Status: Acute Assessment & Plan: - KUB reviewed - CT abd/ pelvis ordered - + constipation- Bisacodyl MS x1 now gave Code(s): K63.89 - OTHER SPECIFIED DISEASES OF INTESTINE (17) Sepsis Current Visit: Yes Status: Acute Assessment & Plan: - Lactic acid 1.3 today - Temp > 100.4, RR >20 , HR > 90, WBC > 12 - + pneumonia - 2:2 pneumonia - IVF - IV antibiotics - see pneumonia plan VTE: Loveonx PPI:Omeprazole Next of KIN: Sister D/C plan: 2-3 days Code status: SCO/DNR
[2024-05-23] MEDS: Depacon 500 MG/5 ML*** 500 MG in Sodium Chloride 0.9% 100 ML IV SCH (18:12)
[2024-05-24 05:17] LABS: Hematocrit 40.9 % (40.1-51.0); Hemoglobin 12.6 g/dL (13.7-17.5); Mean Cell Volume 95.1 fL (79.0-92.2); Mean Corpuscular Hemoglobin 29.3 pg (25.7-32.2); Mean Corpuscular Hgb Concent. 30.8 g/dL (32.3-36.5); Mean Platelet Volume 10.2 fL (9.4-12.4); Platelet Count 178 x10^3/uL (163-337); Red Cell Distribution Width 14.2 % (11.6-14.4); White Blood Count 12.1 x10^3/uL (4.23-9.07)
--- NOTE | 2024-05-24 05:43 | PCM.NOTE ---
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 GERD, COPD, epilepsy, depression, anxiety, and recurrent aspiration pneumonia. He presented to our ED for the second time in 24 hours 05/18/24 with complaints of shortness of breath, weakness and subjective fever. Afebrile in ED. He admits to drinking non-thickened liquids. Sister said he sneaks drinks. Patient was hypoxic on room air upon arrival. Patient normally does not require oxygen. Patient placed on 3 L nasal cannula. O2 sat 97%. CXR in ER showed BLL pneumonia and started on IV antibiotics. During hospital course patient had a noted decline and became hypoxic and unresponsive. At that time he was placed on BIPAP. Patient was off BIPAP for a while and at first did well, then dropped his sats into the 60's so BIPAP replaced. His lungs sound better. He may have problems swallowing. Will get ST eval. Sodium improved to 152. Will increase IV fluids. Continue Levaquin for treatment of pneumonia. Will have PT eval and treat for weakness. 05/24/24: Met with patient and family at bedside. Patient states he is feeling better. Was able to eat 50% of his breakfast. Trialed patient on heated high flow at 40L and 80%, patient unable to tolerate with spo2 dropping to 77% and placed back on BIPAP increased to 100% fio2 and mode switched to avaps due to vt 350. Patient now appears comfortable. CXR today showing worsened infiltrates on the right, left unchanged. Patient did cough up a large mucus plug this morning per SUPERVISING EDITOR TRAILER - green in color. Labs are showing improvement WBC at 12.9<17.9, hypernatremia resolved, and creat now at baseline. Will continue with abx, discontinue fluids, and add one dose of lasix. - Review of Systems Constitutional: Weakness Eyes: No Symptoms Ears, Nose, & Throat: No Symptoms Respiratory: Cough, Short Of Breath Cardiac: No Symptoms Abdominal/Gastrointestinal: Appetite Changes (poor appetite ) Genitourinary Symptoms: No Symptoms Musculoskeletal: No Symptoms Skin: No Symptoms Neurological: No Symptoms Psychological: No Symptoms Endocrine: No Symptoms Hematologic/Lymphatic: No Symptoms Immunological/Allergic: No Symptoms Objective Exam General Appearance: no apparent distress Neurologic Exam: alert, oriented x 3, cooperative Skin Exam: pale Eye Exam: PERRL Ears, Nose, Throat Exam: normal ENT inspection Neck Exam: normal inspection Respiratory Exam: crackles/rales Cardiovascular Exam: regular rate/rhythm, normal heart sounds Gastrointestinal/Abdomen Exam: soft, normal bowel sounds Extremity Exam: normal inspection Back Exam: normal inspection Male Genitalia Exam: deferred Rectal Exam: deferred Objective Data Vital Signs: Vital Signs - 24 hr Temp Pulse Resp BP Pulse Ox 05/24/24 03:00 97.4 F 76 18 131/61 95 05/23/24 23:00 97.0 F 77 23 130/66 94 L 05/23/24 19:00 98.2 F 79 29 H 129/60 97 05/23/24 18:37 84 25 H 98 05/23/24 15:00 98.0 F 88 28 H 137/73 95 05/23/24 11:00 98.2 F 99 H 29 H 139/82 88 L 05/23/24 07:19 82 30 H 96 05/23/24 07:00 98.3 F 82 29 H 128/67 96 Pain Assessment - Last Documented Pain Intensity 0 [facility] Intake and Output: Intake & Output 05/21/24 05/22/24 05/23/24 05/24/24 11:59 11:59 11:59 11:59 Intake Total 358 1228 3263 3325 Output Total 1625 2200 1400 1850 Balance -1267 -972 1863 1475 Weight 71 kg Lab Results: Lab Results-Last 24 Hours 05/23/24 05/23/24 05/23/24 Range/Units 06:56 11:12 16:18 POC Glucometer 227 H 294 H 257 H (74 to 106) mg/dL 05/23/24 05/23/24 05/24/24 Range/Units 19:59 23:57 03:47 POC Glucometer 206 H 199 H 191 H (74 to 106) mg/dL Radiology Exams: Radiology Procedures Category Date Time Status CHEST 1 VIEW (PORTABLE) Routine Exams 05/24/24 08:00 Ordered Multi-Disciplinary Progress Notes: Multi-Disciplinary Progress Notes 05/23/24 18:48 Respiratory Note by Dian Roa not given as pt is on bipap and is unable to do MDI at this time. Initialized on 05/23/24 18:48 - END OF NOTE 05/23/24 11:59 Respiratory Note by Zainab Diana 0910 PT WANTING OFF BIPAP. PLACED ON 10L OXYMIZER, SPO2 80% INC TO 15L SPO2 89%. AT 1035 NOTIFIED BY RN SPO2 70'S, AT THAT TIME SWITCHED TO HIFLOW 40L AND 85%. 1100 SPO2 70'S ,PT ANXIOUS AND DUSKY. AT THAT TIME PLACED BACK ON BIPAP 16/8 100%, R-18. SPO2 INC TO MID 80'S . PT GIVEN MORPHINE AND IS RESTING WELL. Initialized on 05/23/24 11:59 - END OF NOTE Assessment/Plan (1) Sepsis Current Visit: No Status: Acute Assessment & Plan: - 2:2 pneumonia - see pneumonia plan (2) Bilateral pneumonia Current Visit: No Status: Acute Assessment & Plan: - Likely aspiration pneumonia as pt has a hx of this and is to be on thickened liquids.-noncompliant with diet modifications - Tele - BC X2 negative, repeat bcult x 2 NGTD/ ucult negative - CXR reviewed from 05/24 showing worsening of right infiltrates, left lung unchanges - dulinda adv - Continue IV antibiotic - antimicrobial history: -Levaquin 05/20-current -Vancomycin 05/22-05/23 -Doxycycline 05/18- 05/20 -Lasix 40mg x 1 dose - Documentation reviewed -Pulmonology consulted with no new recommendation - consulted again after patient declined - no changes and recommended comfort care - Hospice consult- family does not wish to have consult at this time - BIPAP by RT at 100% fio2 and mode switched to AVAPS due to vt 350 - Continue Levaquin and stop Vancomycin - BC negative - ST eval - DNR/SCO Code(s): J18.9 - PNEUMONIA, UNSPECIFIED ORGANISM (3) Hypernatremia Current Visit: Yes Status: Acute Assessment & Plan: -IVF at 125ml/hr discontinued -CMP reviewed, sodium level wnl at 145 -resolved- continue to monitor Code(s): E87.0 - HYPEROSMOLALITY AND HYPERNATREMIA (4) Generalized weakness Current Visit: Yes Status: Acute Assessment & Plan: -Secondary to current illness with pneumonia/mono - PT eval and treat. Code(s): R53.1 - WEAKNESS (5) Lactic acidosis Current Visit: Yes Status: Acute Assessment & Plan: - 2:2 pneumonia -resolved Code(s): E87.20 - ACIDOSIS, UNSPECIFIED (6) Mononucleosis syndrome Current Visit: No Status: Acute Assessment & Plan: - incidental finding on testing in ER - Supportive care. Code(s): B27.90 - INFECTIOUS MONONUCLEOSIS, UNSPECIFIED WITHOUT COMPLICATION (7) GERD (gastroesophageal reflux disease) Current Visit: Yes Status: Acute Assessment & Plan: - Continue PPI Code(s): K21.9 - GASTRO-ESOPHAGEAL REFLUX DISEASE WITHOUT ESOPHAGITIS (8) SEAN (acute kidney injury) Current Visit: Yes Status: Acute Assessment & Plan: - baseline 1.06 - CMP reviewed, creat better than baseline at 0.89 - IVF-discontinued -monitor renal/lytes -avoid nephrotoxic meds Code(s): N17.9 - ACUTE KIDNEY FAILURE, UNSPECIFIED (9) Gaseous distention of intestine determined by X-ray Current Visit: Yes Status: Acute Assessment & Plan: - KUB reviewed - CT abd/ pelvis reviewed- demonstrates concern for chronic constipation with no obstruction - + constipation- Bisacodyl IN Code(s): K63.89 - OTHER SPECIFIED DISEASES OF INTESTINE (10) BPH (benign prostatic hyperplasia) Current Visit: Yes Status: Chronic Assessment & Plan: - Continue flomax - urinary incontinence since unresponsive- christine placed 05/20 - UC negative Code(s): N40.0 - BENIGN PROSTATIC HYPERPLASIA WITHOUT LOWER URINRY TRACT SYMP (11) COPD (chronic obstructive pulmonary disease) Current Visit: No Status: Chronic Assessment & Plan: - Continue home meds (12) DM2 (diabetes mellitus, type 2) Current Visit: No Status: Chronic Assessment & Plan: - Carb Consistent diet - A1C reviewed from 04/22/24 7.36 - accuchecks AC/HS, low dose S/S. (13) Depression Current Visit: No Status: Chronic Assessment & Plan: - Continue home meds Code(s): F32.9 - MAJOR DEPRESSIVE DISORDER, SINGLE EPISODE, UNSPECIFIED (14) Epilepsy Current Visit: No Status: Chronic Assessment & Plan: - Continue Depakote Code(s): G40.909 - EPILEPSY, UNSP, NOT INTRACTABLE, WITHOUT STATUS EPILEPTICUS (15) Hx of aspiration pneumonitis Current Visit: No Status: Chronic Assessment & Plan: - With previous admissions - Continue thickened liquids. Code(s): Z87.09 - PERSONAL HISTORY OF OTHER DISEASES OF THE RESPIRATORY SYSTEM (16) Hx of traumatic brain injury Current Visit: No Status: Chronic Assessment & Plan: - Noted, adds to complexity - Pt has a hx of aspiration pneumonia from drinking non- thickened liquids. He reports being thirsty and not being to control himself. Code(s): Z87.820 - PERSONAL HISTORY OF TRAUMATIC BRAIN INJURY (17) Iron deficiency anemia Current Visit: No Status: Chronic Assessment & Plan: - Continue ferrous sulfate -CBC reviewed, hgb stable at 12.6 VTE: Loveonx PPI:Omeprazole Next of KIN: Sister D/C plan: 2-3 days Code status: SCO/DNR Code(s): D50.9 - IRON DEFICIENCY ANEMIA, UNSPECIFIED
[2024-05-24 05:54] LABS: ALBUMIN 3.2 g/dL (3.5-5.0); BILIRUBIN,TOTAL 0.3 mg/dL (0.2-1.3); Calcium 9.7 mg/dL (8.4-10.2); Creatinine 1 0.89 mg/dL (0.66-1.25); EST GLOMERULAR FILTRATION RATE 93.9 ML/MIN; Potassium 3.5 mmol/L (3.5-5.1); Total Protein 6.3 g/dL (6.3-8.2)
--- NOTE | 2024-05-24 09:24 | XRAY ---
Indication: Pneumonia. Short of breath. Fatigue. Comparison: May 21, 2024 Portable apical lordotic chest again demonstrates small bibasilar infiltrates/atelectasis/effusions, worsened on right and grossly unchanged on left. Heart not enlarged. No new cardiopulmonary abnormalities.
[2024-05-24] MEDS: Lasix 40 MG/4 ML IV ONE (13:24)
[2024-05-24] MEDS: Ativan 2 MG/1 ML VIAL IV ONE (15:25)
--- NOTE | 2024-05-25 05:12 | PCM.NOTE ---
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 GERD, COPD, epilepsy, depression, anxiety, and recurrent aspiration pneumonia. He presented to our ED for the second time in 24 hours 05/18/24 with complaints of shortness of breath, weakness and subjective fever. Afebrile in ED. He admits to drinking non-thickened liquids. Sister said he sneaks drinks. Patient was hypoxic on room air upon arrival. Patient normally does not require oxygen. Patient placed on 3 L nasal cannula. O2 sat 97%. CXR in ER showed BLL pneumonia and started on IV antibiotics. During hospital course patient had a noted decline and became hypoxic and unresponsive. At that time he was placed on BIPAP. Patient was off BIPAP for a while and at first did well, then dropped his sats into the 60's so BIPAP replaced. His lungs sound better. He may have problems swallowing. Will get ST eval. Sodium improved to 152. Will increase IV fluids. Continue Levaquin for treatment of pneumonia. Will have PT eval and treat for weakness. 05/24/24: Met with patient and family at bedside. Patient states he is feeling better. Was able to eat 50% of his breakfast. Trialed patient on heated high flow at 40L and 80%, patient unable to tolerate with spo2 dropping to 77% and placed back on BIPAP increased to 100% fio2 and mode switched to avaps due to vt 350. Patient now appears comfortable. CXR today showing worsened infiltrates on the right, left unchanged. Patient did cough up a large mucus plug this morning per TANK SYSTEMS MAINTAINER - green in color. Labs are showing improvement WBC at 12.9<17.9, hypernatremia resolved, and creat now at baseline. Will continue with abx, discontinue fluids, and add one dose of lasix. 05/25/24: Unable to wean off BIPAP. WBC increased overnight. CXR with worsened infiltrates on the Right. Unable to obtain modified barium with BIPAP. Will add cefepime to abx and dose lasix IV x 1. If no improvement will consider transfer tomorrow. - Review of Systems Constitutional: Fatigue, Lethargy, Weakness Eyes: No Symptoms Ears, Nose, & Throat: No Symptoms Respiratory: Cough, Short Of Breath Cardiac: No Symptoms Abdominal/Gastrointestinal: No Symptoms Genitourinary Symptoms: No Symptoms Musculoskeletal: No Symptoms Skin: No Symptoms Neurological: No Symptoms Psychological: No Symptoms Endocrine: No Symptoms Hematologic/Lymphatic: No Symptoms Immunological/Allergic: No Symptoms Objective Exam General Appearance: mild distress, anxiety Neurologic Exam: alert, oriented x 3, agitation (BIPAP) Skin Exam: normal color Eye Exam: PERRL Ears, Nose, Throat Exam: normal ENT inspection Neck Exam: normal inspection Respiratory Exam: crackles/rales, wheezing Cardiovascular Exam: regular rate/rhythm, normal heart sounds Gastrointestinal/Abdomen Exam: soft, normal bowel sounds Extremity Exam: normal inspection Back Exam: normal inspection Male Genitalia Exam: deferred Rectal Exam: deferred Objective Data Vital Signs: Vital Signs - 24 hr Temp Pulse Resp BP Pulse Ox 05/24/24 23:00 100 F 85 22 119/60 92 L 05/24/24 19:22 94 H 29 H 100 05/24/24 19:00 97 H 22 107/59 90 L 05/24/24 15:27 108 H 26 H 95 05/24/24 15:00 97.9 F 96 H 22 94/50 98 05/24/24 12:10 96 H 23 99 05/24/24 11:00 98.2 F 96 H 19 151/74 89 L 05/24/24 07:23 79 22 96 05/24/24 06:51 98.3 F 78 19 124/64 96 Pain Assessment - Last Documented Pain Intensity 0 [facility] Intake and Output: Intake & Output 05/22/24 05/23/24 05/24/24 05/25/24 11:59 11:59 11:59 11:59 Intake Total 1228 3263 3705 1293 Output Total 2200 1400 1850 1900 Balance -972 1863 1855 -607 Lab Results: Lab Results-Last 24 Hours 05/24/24 05/24/24 05/24/24 Range/Units 05:11 05:11 07:48 WBC 12.1 H (4.23-9.07) x10^3/uL RBC 4.30 L (4.63-6.08) x10^6/uL Hgb 12.6 L (13.7-17.5) g/dL Hct 40.9 (40.1-51.0) % MCV 95.1 H (79.0-92.2) fL MCH 29.3 (25.7-32.2) pg MCHC 30.8 L (32.3-36.5) g/dL RDW 14.2 (11.6-14.4) % Plt Count 178 (163-337) x10^3/uL MPV 10.2 (9.4-12.4) fL Sodium 145 (135-145) mmol/L Potassium 3.5 (3.5-5.1) mmol/L Chloride 107 (98-107) mmol/L Carbon Dioxide 31 H (22-30) mmol/L Anion Gap 11.0 (5-15) MEQ/L BUN 40 H (9-20) mg/dL Creatinine 0.89 (0.66-1.25) mg/dL Estimated GFR 93.9 ML/MIN Glucose 265 H (74-106) mg/dL POC Glucometer 230 H (74 to 106) mg/dL Calcium 9.7 (8.4-10.2) mg/dL Total Bilirubin 0.30 (0.2-1.3) mg/dL AST 30 (17-59) U/L ALT 28 (0-50) U/L Alkaline Phosphatase 46 (38-126) U/L Serum Total Protein 6.3 (6.3-8.2) g/dL Albumin 3.2 L (3.5-5.0) g/dL 05/24/24 05/24/24 05/24/24 Range/Units 11:26 16:28 20:54 WBC (4.23-9.07) x10^3/uL RBC (4.63-6.08) x10^6/uL Hgb (13.7-17.5) g/dL Hct (40.1-51.0) % MCV (79.0-92.2) fL MCH (25.7-32.2) pg MCHC (32.3-36.5) g/dL RDW (11.6-14.4) % Plt Count (163-337) x10^3/uL MPV (9.4-12.4) fL Sodium (135-145) mmol/L Potassium (3.5-5.1) mmol/L Chloride (98-107) mmol/L Carbon Dioxide (22-30) mmol/L Anion Gap (5-15) MEQ/L BUN (9-20) mg/dL Creatinine (0.66-1.25) mg/dL Estimated GFR ML/MIN Glucose (74-106) mg/dL POC Glucometer 246 H 219 H 190 H (74 to 106) mg/dL Calcium (8.4-10.2) mg/dL Total Bilirubin (0.2-1.3) mg/dL AST (17-59) U/L ALT (0-50) U/L Alkaline Phosphatase (38-126) U/L Serum Total Protein (6.3-8.2) g/dL Albumin (3.5-5.0) g/dL 05/24/24 05/25/24 Range/Units 23:59 04:20 WBC (4.23-9.07) x10^3/uL RBC (4.63-6.08) x10^6/uL Hgb (13.7-17.5) g/dL Hct (40.1-51.0) % MCV (79.0-92.2) fL MCH (25.7-32.2) pg MCHC (32.3-36.5) g/dL RDW (11.6-14.4) % Plt Count (163-337) x10^3/uL MPV (9.4-12.4) fL Sodium (135-145) mmol/L Potassium (3.5-5.1) mmol/L Chloride (98-107) mmol/L Carbon Dioxide (22-30) mmol/L Anion Gap (5-15) MEQ/L BUN (9-20) mg/dL Creatinine (0.66-1.25) mg/dL Estimated GFR ML/MIN Glucose (74-106) mg/dL POC Glucometer 172 H 225 H (74 to 106) mg/dL Calcium (8.4-10.2) mg/dL Total Bilirubin (0.2-1.3) mg/dL AST (17-59) U/L ALT (0-50) U/L Alkaline Phosphatase (38-126) U/L Serum Total Protein (6.3-8.2) g/dL Albumin (3.5-5.0) g/dL Radiology Exams: Radiology Procedures Category Date Time Status CHEST 1 VIEW (PORTABLE) Routine Exams 05/24/24 08:00 Completed MODIFIED BARIUM SWALLOW EXAM Routine Exams 05/25/24 07:00 Ordered Multi-Disciplinary Progress Notes: Multi-Disciplinary Progress Notes 05/24/24 16:33 Nutrition Note by Liana Luo F/u Note: Pt receiving clear liquid diet with 50% po intake at breakfast today; 0% @ lunch. Note MBS ordered to be completed 05/25. no recent weight (last 05/10); labs 05/24= glu 219, BUN 40, alb 3.2, hgb 12.6. Will f/u after MBS for recommendations. Barbara MSRDCD Initialized on 05/24/24 16:33 - END OF NOTE 05/24/24 15:15 Respiratory Note by Millicent Rivas 1315 pt placed back on bipap due to spo2 77%. pt spo2 increased to 86-88% on bipap. Initialized on 05/24/24 15:15 - END OF NOTE 05/24/24 14:12 Case Management Note by Nadege Brand S/W SISTER CARTER- SHE IS STILL HOPEFUL FOR PATIENT TO RETURN HOME AT TIME OF DC. SHE IS AWARE HOWEVER THAT SHE MAY NEED TO CONSIDER A REHAB STAY. WILL CONTINUE TO FOLLOW Initialized on 05/24/24 14:12 - END OF NOTE 05/24/24 13:59 Speech Therapy Note by Tiffanie(L#[id number] ORDERS RECEIVED FOR ST EVALUATION. PATIENT PLACED ON BIPAP TWICE THIS DATE. RECOMMEND NPO PENDING MBS STUDY COMPLETION. HOPEFULLY TO BE COMPLETED TOMORROW 05/25/24 IF PATIENT IS ABLE TO TOLERATE. MS ARNOLD, CCC/BLOCK CAPTAIN Initialized on 05/24/24 13:59 - END OF NOTE 05/24/24 12:22 Respiratory Note by Millicent Rivas pt taken off bipap and placed on heated high flow nasal cannula at 45L and 90% fio2. pt spo2 96%. Initialized on 05/24/24 12:22 - END OF NOTE 05/24/24 10:29 Respiratory Note by Millicent Rivas 0726 pt taken off bipap and placed on heated high flow at 40L and 80%. Initialized on 05/24/24 10:29 - END OF NOTE 05/24/24 10:24 Respiratory Note by Millicent Rivas rt called down to the floor for spo2 dropping. pt found with spo2 of 77% on 80% fio2 and 40L on high flow. rt turned fio2 up to 90% and pt spo2 increased to 80%. rt placed pt back on bipap and pt increased to 100% fio2 and mode switched to avaps due to vt 350. Fallon informed of changes and pts status. Initialized on 05/24/24 10:24 - END OF NOTE 05/24/24 09:50 Occupational Therapy Note by Karla (L#[id number])Sejal OT will hold on evaluation at this time as patient is Bipap dependent with O2 sats unstable if taken off. Patient's respiratory status will need to be more medically stable before OT evaluation. Initialized on 05/24/24 09:50 - END OF NOTE Assessment/Plan (1) Sepsis Current Visit: No Status: Acute Assessment & Plan: - 2:2 pneumonia - see pneumonia plan (2) Bilateral pneumonia Current Visit: No Status: Acute Assessment & Plan: - Likely aspiration pneumonia as pt has a hx of this and is to be on thickened liquids.-noncompliant with diet modifications - Tele - BC X2 negative, repeat bcult x 2 NGTD/ ucult negative - CXR reviewed from 05/24 showing worsening of right infiltrates, left lung unchanges - doreen ortega - Continue IV antibiotic - antimicrobial history: -Levaquin 05/20-current -Vancomycin 05/22-05/23 -Doxycycline 05/18- 05/20 -Lasix 40mg x 1 dose - Documentation reviewed -Pulmonology consulted with no new recommendation - consulted again after patient declined - no changes and recommended comfort care - Hospice consult- family does not wish to have consult at this time - BIPAP by RT at 100% fio2 and mode switched to AVAPS due to vt 350 - Continue Levaquin and stop Vancomycin - BC negative - ST eval - DNR/SCO 05/25: -Add cefepime -WBC trending up 16.3>12.1 -unable to wean BIPAP -Lasix x 1 dose 40mg Code(s): J18.9 - PNEUMONIA, UNSPECIFIED ORGANISM (3) Hypernatremia Current Visit: Yes Status: Acute Assessment & Plan: -IVF at 125ml/hr discontinued -CMP reviewed, sodium level wnl at 145 -resolved- continue to monitor 05/25 -CMP reviewed, sodium at 149 - will continue D5W Code(s): E87.0 - HYPEROSMOLALITY AND HYPERNATREMIA (4) Generalized weakness Current Visit: Yes Status: Acute Assessment & Plan: -Secondary to current illness with pneumonia/mono - PT eval and treat. Code(s): R53.1 - WEAKNESS (5) Lactic acidosis Current Visit: Yes Status: Acute Assessment & Plan: - 2:2 pneumonia -resolved Code(s): E87.20 - ACIDOSIS, UNSPECIFIED (6) Mononucleosis syndrome Current Visit: No Status: Acute Assessment & Plan: - incidental finding on testing in ER - Supportive care. Code(s): B27.90 - INFECTIOUS MONONUCLEOSIS, UNSPECIFIED WITHOUT COMPLICATION (7) GERD (gastroesophageal reflux disease) Current Visit: Yes Status: Acute Assessment & Plan: - Continue PPI Code(s): K21.9 - GASTRO-ESOPHAGEAL REFLUX DISEASE WITHOUT ESOPHAGITIS (8) SEAN (acute kidney injury) Current Visit: Yes Status: Acute Assessment & Plan: - baseline 1.06 - CMP reviewed, creat better than baseline at 0.89 - IVF-discontinued -monitor renal/lytes -avoid nephrotoxic meds 05/25: -CMP reviewed - creat wnl at 0.89 -resolved Code(s): N17.9 - ACUTE KIDNEY FAILURE, UNSPECIFIED (9) Gaseous distention of intestine determined by X-ray Current Visit: Yes Status: Acute Assessment & Plan: - KUB reviewed - CT abd/ pelvis reviewed- demonstrates concern for chronic constipation with no obstruction - + constipation- Bisacodyl HI Code(s): K63.89 - OTHER SPECIFIED DISEASES OF INTESTINE (10) BPH (benign prostatic hyperplasia) Current Visit: Yes Status: Chronic Assessment & Plan: - Continue flomax - urinary incontinence since unresponsive- christine placed 05/20 - UC negative Code(s): N40.0 - BENIGN PROSTATIC HYPERPLASIA WITHOUT LOWER URINRY TRACT SYMP (11) COPD (chronic obstructive pulmonary disease) Current Visit: No Status: Chronic Assessment & Plan: - Continue home meds (12) DM2 (diabetes mellitus, type 2) Current Visit: No Status: Chronic Assessment & Plan: - Carb Consistent diet - A1C reviewed from 04/22/24 7.36 - accuchecks AC/HS, low dose S/S. (13) Depression Current Visit: No Status: Chronic Assessment & Plan: - Continue home meds Code(s): F32.9 - MAJOR DEPRESSIVE DISORDER, SINGLE EPISODE, UNSPECIFIED (14) Epilepsy Current Visit: No Status: Chronic Assessment & Plan: - Continue Depakote Code(s): G40.909 - EPILEPSY, UNSP, NOT INTRACTABLE, WITHOUT STATUS EPILEPTICUS (15) Hx of aspiration pneumonitis Current Visit: No Status: Chronic Assessment & Plan: - With previous admissions - Continue thickened liquids. 05/25 -ST to obtain modified barium when able to wean BIPAP Code(s): Z87.09 - PERSONAL HISTORY OF OTHER DISEASES OF THE RESPIRATORY SYSTEM (16) Hx of traumatic brain injury Current Visit: No Status: Chronic Assessment & Plan: - Noted, adds to complexity - Pt has a hx of aspiration pneumonia from drinking non- thickened liquids. He reports being thirsty and not being to control himself. Code(s): Z87.820 - PERSONAL HISTORY OF TRAUMATIC BRAIN INJURY (17) Iron deficiency anemia Current Visit: No Status: Chronic Assessment & Plan: - Continue ferrous sulfate -CBC reviewed, hgb stable at 12.6 05/25: -CBC reviewed, hgb stable at 12.5 VTE: Loveonx PPI:Omeprazole Next of KIN: Sister D/C plan: 2-3 days Code status: SCO/DNR (2) Bilateral pneumonia Current Visit: No Status: Acute Code(s): J18.9 - PNEUMONIA, UNSPECIFIED ORGANISM (3) Hypernatremia Current Visit: Yes Status: Acute Code(s): E87.0 - HYPEROSMOLALITY AND HYPERNATREMIA (4) Generalized weakness Current Visit: Yes Status: Acute Code(s): R53.1 - WEAKNESS (5) Lactic acidosis Current Visit: Yes Status: Acute Code(s): E87.20 - ACIDOSIS, UNSPECIFIED (6) Mononucleosis syndrome Current Visit: No Status: Acute Code(s): B27.90 - INFECTIOUS MONONUCLEOSIS, UNSPECIFIED WITHOUT COMPLICATION (7) GERD (gastroesophageal reflux disease) Current Visit: Yes Status: Acute Code(s): K21.9 - GASTRO-ESOPHAGEAL REFLUX DISEASE WITHOUT ESOPHAGITIS (8) SEAN (acute kidney injury) Current Visit: Yes Status: Acute Code(s): N17.9 - ACUTE KIDNEY FAILURE, UNSPECIFIED (9) Gaseous distention of intestine determined by X-ray Current Visit: Yes Status: Acute Code(s): K63.89 - OTHER SPECIFIED DISEASES OF INTESTINE (10) BPH (benign prostatic hyperplasia) Current Visit: Yes Status: Chronic Code(s): N40.0 - BENIGN PROSTATIC HYPERPLASIA WITHOUT LOWER URINRY TRACT SYMP (11) COPD (chronic obstructive pulmonary disease) Current Visit: No Status: Chronic (12) DM2 (diabetes mellitus, type 2) Current Visit: No Status: Chronic (13) Depression Current Visit: No Status: Chronic Code(s): F32.9 - MAJOR DEPRESSIVE DISORDER, SINGLE EPISODE, UNSPECIFIED (14) Epilepsy Current Visit: No Status: Chronic Code(s): G40.909 - EPILEPSY, UNSP, NOT INTRACTABLE, WITHOUT STATUS EPILEPTICUS (15) Hx of aspiration pneumonitis Current Visit: No Status: Chronic Code(s): Z87.09 - PERSONAL HISTORY OF OTHER DISEASES OF THE RESPIRATORY SYSTEM (16) Hx of traumatic brain injury Current Visit: No Status: Chronic Code(s): Z87.820 - PERSONAL HISTORY OF TR AUMATIC BRAIN INJURY (17) Iron deficiency anemia Current Visit: No Status: Chronic Code(s): D50.9 - IRON DEFICIENCY ANEMIA, UNSPECIFIED
[2024-05-25 07:38] LABS: BASOPHIL % 0.2 % (0.2-1.2); Basophil (Absolute #) 0.03 x10^3/uL (0.01-0.08); Eosinophil (Absolute #) 0 x10^3/uL (0.04-0.54); Hematocrit 40.2 % (40.1-51.0); Hemoglobin 12.5 g/dL (13.7-17.5); IMMATURE GRAN # 0.14 x10^3u/L (0.001-0.031); IMMATURE GRAN % 0.9 % (0.001-0.429); Lymphocyte (Absolute #) 4.57 x10^3/uL (1.32-3.57); Mean Cell Volume 94.8 fL (79.0-92.2); Mean Corpuscular Hemoglobin 29.5 pg (25.7-32.2); Mean Corpuscular Hgb Concent. 31.1 g/dL (32.3-36.5); Mean Platelet Volume 10.4 fL (9.4-12.4); Monocyte (Absolute #) 0.66 x10^3/uL (0.30-0.82); Neutrophil % 66.9 % (34.0-67.9); Platelet Count 156 x10^3/uL (163-337); Red Blood Count 4.24 x10^6/uL (4.63-6.08); Red Cell Distribution Width 13.8 % (11.6-14.4); White Blood Count 16.3 x10^3/uL (4.23-9.07)
[2024-05-25 07:48] LABS: ALBUMIN 3.3 g/dL (3.5-5.0); ANION GAP 14.2 MEQ/L (5-15); BILIRUBIN,TOTAL 0.4 mg/dL (0.2-1.3); Calcium 9.9 mg/dL (8.4-10.2); Creatinine 1 0.89 mg/dL (0.66-1.25); EST GLOMERULAR FILTRATION RATE 93.9 ML/MIN; Total Protein 6.3 g/dL (6.3-8.2)
[2024-05-25] MEDS: Dextrose 5%/Water IV Soln. 1000 ML 1,000 ML IV SCH (10:26)
[2024-05-25] MEDS: MORPHINE SULFATE 2 MG INJ IV PRN (11:44)
[2024-05-25] MEDS: Lasix 40 MG/4 ML IV ONE (12:29)
[2024-05-25] MEDS: SODIUM CHLORIDE MINI IV SCH (13:17)
[2024-05-25] MEDS: DEPACON IV SCH (13:17)
[2024-05-25] MEDS: Maxipime 2 GM** 2 G in Dextrose 5%/Water IV Soln. 100ML PLUS BAG 100 ML IV SCH (13:17)
[2024-05-25] MEDS: Ativan 2 MG/1 ML VIAL IV ONE (15:00)
--- NOTE | 2024-05-26 05:11 | PCM.NOTE ---
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 GERD, COPD, epilepsy, depression, anxiety, and recurrent aspiration pneumonia. He presented to our ED for the second time in 24 hours 05/18/24 with complaints of shortness of breath, weakness and subjective fever. Afebrile in ED. He admits to drinking non-thickened liquids. Sister said he sneaks drinks. Patient was hypoxic on room air upon arrival. Patient normally does not require oxygen. Patient placed on 3 L nasal cannula. O2 sat 97%. CXR in ER showed BLL pneumonia and started on IV antibiotics. During hospital course patient had a noted decline and became hypoxic and unresponsive. At that time he was placed on BIPAP. Patient was off BIPAP for a while and at first did well, then dropped his sats into the 60's so BIPAP replaced. His lungs sound better. He may have problems swallowing. Will get ST eval. Sodium improved to 152. Will increase IV fluids. Continue Levaquin for treatment of pneumonia. Will have PT eval and treat for weakness. 05/24/24: Met with patient and family at bedside. Patient states he is feeling better. Was able to eat 50% of his breakfast. Trialed patient on heated high flow at 40L and 80%, patient unable to tolerate with spo2 dropping to 77% and placed back on BIPAP increased to 100% fio2 and mode switched to avaps due to vt 350. Patient now appears comfortable. CXR today showing worsened infiltrates on the right, left unchanged. Patient did cough up a large mucus plug this morning per [employer]PLIANCE - green in color. Labs are showing improvement WBC at 12.9<17.9, hypernatremia resolved, and creat now at baseline. Will continue with abx, discontinue fluids, and add one dose of lasix. 05/25/24: Unable to wean off BIPAP. WBC increased overnight. CXR with worsened infiltrates on the Right. Unable to obtain modified barium with BIPAP. Will add cefepime to abx and dose lasix IV x 1. If no improvement will consider transfer tomorrow. Objective Data Vital Signs: Vital Signs - 24 hr Temp Pulse Resp BP Pulse Ox 05/26/24 03:41 96.9 F 84 21 96 05/25/24 23:32 97.5 F 83 23 128/60 92 L 05/25/24 19:47 87 28 H 95 05/25/24 19:22 87 28 H 95 05/25/24 18:59 97.2 F 89 19 90 L 05/25/24 16:11 99 H 20 95 05/25/24 15:00 99 H 28 H 05/25/24 11:50 97.2 F 99 H 28 H 130/95 96 05/25/24 10:21 74 18 95 05/25/24 07:00 97.3 F 79 22 113/56 93 L Pain Assessment - Last Documented Pain Intensity 0 Pain Scale [facility] Intake and Output: Intake & Output 05/23/24 05/24/24 05/25/24 05/26/24 11:59 11:59 11:59 11:59 Intake Total 3263 3705 1293 2554 Output Total 1400 1850 2750 2450 Balance 1863 1855 -1457 104 Lab Results: Lab Results-Last 24 Hours 05/25/24 05/25/24 05/25/24 Range/Units 07:14 07:14 07:41 WBC 16.3 H (4.23-9.07) x10^3/uL RBC 4.24 L (4.63-6.08) x10^6/uL Hgb 12.5 L (13.7-17.5) g/dL Hct 40.2 (40.1-51.0) % MCV 94.8 H (79.0-92.2) fL MCH 29.5 (25.7-32.2) pg MCHC 31.1 L (32.3-36.5) g/dL RDW 13.8 (11.6-14.4) % Plt Count 156 L (163-337) x10^3/uL MPV 10.4 (9.4-12.4) fL Gran % 66.9 (34.0-67.9) % Immature Gran % (Auto) 0.9 H (0.001-0.429) % Nucleat RBC Rel Count 0.0 (0.00-0.2) % Eos # (Auto) 0 L (0.04-0.54) x10^3/uL Immature Gran # (Auto) 0.14 H (0.001-0.031) x10^3u/L Absolute Lymphs (auto) 4.57 H (1.32-3.57) x10^3/uL Absolute Monos (auto) 0.66 (0.30-0.82) x10^3/uL Absolute Nucleated RBC 0.00 (0.00-0.012) x10^3u/L Lymphocytes % 28.0 (21.8-53.1) % Monocytes % 4.0 L (5.3-12.2) % Eosinophils % 0.0 L (0.8-7.0) % Basophils % 0.2 (0.2-1.2) % Absolute Granulocytes 10.90 H (1.78-5.38) x10^3/uL Basophils # 0.03 (0.01-0.08) x10^3/uL Sodium 149 H (135-145) mmol/L Potassium 4.0 (3.5-5.1) mmol/L Chloride 108 H (98-107) mmol/L Carbon Dioxide 31 H (22-30) mmol/L Anion Gap 14.2 (5-15) MEQ/L BUN 43 H (9-20) mg/dL Creatinine 0.89 (0.66-1.25) mg/dL Estimated GFR 93.9 ML/MIN Glucose 204 H (74-106) mg/dL POC Glucometer 186 H (74 to 106) mg/dL Calcium 9.9 (8.4-10.2) mg/dL Total Bilirubin 0.40 (0.2-1.3) mg/dL AST 30 (17-59) U/L ALT 25 (0-50) U/L Alkaline Phosphatase 47 (38-126) U/L Serum Total Protein 6.3 (6.3-8.2) g/dL Albumin 3.3 L (3.5-5.0) g/dL Nasal Screen MRSA (PCR) (NEGATIVE) 05/25/24 05/25/24 05/25/24 Range/Units 08:26 11:22 20:12 WBC (4.23-9.07) x10^3/uL RBC (4.63-6.08) x10^6/uL Hgb (13.7-17.5) g/dL Hct (40.1-51.0) % MCV (79.0-92.2) fL MCH (25.7-32.2) pg MCHC (32.3-36.5) g/dL RDW (11.6-14.4) % Plt Count (163-337) x10^3/uL MPV (9.4-12.4) fL Gran % (34.0-67.9) % Immature Gran % (Auto) (0.001-0.429) % Nucleat RBC Rel Count (0.00-0.2) % Eos # (Auto) (0.04-0.54) x10^3/uL Immature Gran # (Auto) (0.001-0.031) x10^3u/L Absolute Lymphs (auto) (1.32-3.57) x10^3/uL Absolute Monos (auto) (0.30-0.82) x10^3/uL Absolute Nucleated RBC (0.00-0.012) x10^3u/L Lymphocytes % (21.8-53.1) % Monocytes % (5.3-12.2) % Eosinophils % (0.8-7.0) % Basophils % (0.2-1.2) % Absolute Granulocytes (1.78-5.38) x10^3/uL Basophils # (0.01-0.08) x10^3/uL Sodium (135-145) mmol/L Potassium (3.5-5.1) mmol/L Chloride (98-107) mmol/L Carbon Dioxide (22-30) mmol/L Anion Gap (5-15) MEQ/L BUN (9-20) mg/dL Creatinine (0.66-1.25) mg/dL Estimated GFR ML/MIN Glucose (74-106) mg/dL POC Glucometer 167 H 292 H (74 to 106) mg/dL Calcium (8.4-10.2) mg/dL Total Bilirubin (0.2-1.3) mg/dL AST (17-59) U/L ALT (0-50) U/L Alkaline Phosphatase (38-126) U/L Serum Total Protein (6.3-8.2) g/dL Albumin (3.5-5.0) g/dL Nasal Screen MRSA (PCR) NOT DETECTED (NEGATIVE) 05/25/24 05/26/24 Range/Units 23:45 04:24 WBC (4.23-9.07) x10^3/uL RBC (4.63-6.08) x10^6/uL Hgb (13.7-17.5) g/dL Hct (40.1-51.0) % MCV (79.0-92.2) fL MCH (25.7-32.2) pg MCHC (32.3-36.5) g/dL RDW (11.6-14.4) % Plt Count (163-337) x10^3/uL MPV (9.4-12.4) fL Gran % (34.0-67.9) % Immature Gran % (Auto) (0.001-0.429) % Nucleat RBC Rel Count (0.00-0.2) % Eos # (Auto) (0.04-0.54) x10^3/uL Immature Gran # (Auto) (0.001-0.031) x10^3u/L Absolute Lymphs (auto) (1.32-3.57) x10^3/uL Absolute Monos (auto) (0.30-0.82) x10^3/uL Absolute Nucleated RBC (0.00-0.012) x10^3u/L Lymphocytes % (21.8-53.1) % Monocytes % (5.3-12.2) % Eosinophils % (0.8-7.0) % Basophils % (0.2-1.2) % Absolute Granulocytes (1.78-5.38) x10^3/uL Basophils # (0.01-0.08) x10^3/uL Sodium (135-145) mmol/L Potassium (3.5-5.1) mmol/L Chloride (98-107) mmol/L Carbon Dioxide (22-30) mmol/L Anion Gap (5-15) MEQ/L BUN (9-20) mg/dL Creatinine (0.66-1.25) mg/dL Estimated GFR ML/MIN Glucose (74-106) mg/dL POC Glucometer 315 H 261 H (74 to 106) mg/dL Calcium (8.4-10.2) mg/dL Total Bilirubin (0.2-1.3) mg/dL AST (17-59) U/L ALT (0-50) U/L Alkaline Phosphatase (38-126) U/L Serum Total Protein (6.3-8.2) g/dL Albumin (3.5-5.0) g/dL Nasal Screen MRSA (PCR) (NEGATIVE) Radiology Exams: Radiology Procedures Category Date Time Status CHEST 1 VIEW (PORTABLE) Routine Exams 05/24/24 08:00 Completed MODIFIED BARIUM SWALLOW EXAM Routine Exams 05/26/24 07:00 Ordered Multi-Disciplinary Progress Notes: Multi-Disciplinary Progress Notes 05/25/24 13:58 Case Management Note by Nadege Brand NO CHANGE IN DC PLANS AT THIS TIME Initialized on 05/25/24 13:58 - END OF NOTE 05/25/24 10:27 Speech Therapy Note by Tiffanie(L#[id number] SPEECH THERAPY: NOTIFIED BY NURSE ARNIE THAT PATIENT IS NOT MEDICALLY STABLE FOR MBS STUDY THIS DATE. MBS STUDY CANCELLED FOR THIS DATE. ST WILL CONTINUE TO MONITOR FOR PATIENT IMPROVEMENT. DISCUSSED WITH PATIENT'S POACARTER, WHO AGREES. SHE INDICATED THAT SHE DOESN'T FEEL THAT HANS'S BREATHING PROBLEMS COME FROM THE FOOD AND/OR THICKENED LIQUIDS, BUT RATHER FROM THE DRINKS THAT HE ROUTINELY "STEALS" WHEN CAREGIVER IS NOT PRESENT. MS ARNOLD CCC/HAND ZIPPER TRIMMER Initialized on 05/25/24 10:27 - END OF NOTE Assessment/Plan (1) Sepsis Current Visit: No Status: Acute Assessment & Plan: 2:2 pneumonia - see pneumonia plan (2) Bilateral pneumonia Current Visit: No Status: Acute Assessment & Plan: - Likely aspiration pneumonia as pt has a hx of this and is to be on thickened liquids.-noncompliant with diet modifications - Tele - BC X2 negative, repeat bcult x 2 NGTD/ ucult negative - CXR reviewed from 05/24 showing worsening of right infiltrates, left lung unchanges - doreen ortega - Continue IV antibiotic - antimicrobial history: -Levaquin 05/20-current -Vancomycin 05/22-05/23 -Doxycycline 05/18- 05/20 -Lasix 40mg x 1 dose - Documentation reviewed -Pulmonology consulted with no new recommendation - consulted again after patient declined - no changes and recommended comfort care - Hospice consult- family does not wish to have consult at this time - BIPAP by RT at 100% fio2 and mode switched to AVAPS due to vt 350 - Continue Levaquin and stop Vancomycin - BC negative - ST eval - DNR/SCO 05/25: -Add cefepime -WBC trending up 16.3>12.1 -unable to wean BIPAP -Lasix x 1 dose 40mg Code(s): J18.9 - PNEUMONIA, UNSPECIFIED ORGANISM (3) Hypernatremia Current Visit: Yes Status: Acute Assessment & Plan: -IVF at 125ml/hr discontinued -CMP reviewed, sodium level wnl at 145 -resolved- continue to monitor 05/25 -CMP reviewed, sodium at 149 - will continue D5W Code(s): E87.0 - HYPEROSMOLALITY AND HYPERNATREMIA (4) Generalized weakness Current Visit: Yes Status: Acute Assessment & Plan: -Secondary to current illness with pneumonia/mono - PT eval and treat. Code(s): R53.1 - WEAKNESS (5) Lactic acidosis Current Visit: Yes Status: Acute Assessment & Plan: - 2:2 pneumonia -resolved Code(s): E87.20 - ACIDOSIS, UNSPECIFIED (6) Mononucleosis syndrome Current Visit: No Status: Acute Assessment & Plan: - incidental finding on testing in ER - Supportive care. Code(s): B27.90 - INFECTIOUS MONONUCLEOSIS, UNSPECIFIED WITHOUT COMPLICATION (7) GERD (gastroesophageal reflux disease) Current Visit: Yes Status: Acute Assessment & Plan: - Continue PPI Code(s): K21.9 - GASTRO-ESOPHAGEAL REFLUX DISEASE WITHOUT ESOPHAGITIS (8) SEAN (acute kidney injury) Current Visit: Yes Status: Acute Assessment & Plan: - baseline 1.06 - CMP reviewed, creat better than baseline at 0.89 - IVF-discontinued -monitor renal/lytes -avoid nephrotoxic meds 05/25: -CMP reviewed - creat wnl at 0.89 -resolved Code(s): N17.9 - ACUTE KIDNEY FAILURE, UNSPECIFIED (9) Gaseous distention of intestine determined by X-ray Current Visit: Yes Status: Acute Assessment & Plan: - KUB reviewed - CT abd/ pelvis reviewed- demonstrates concern for chronic constipation with no obstruction - + constipation- Bisacodyl RI Code(s): K63.89 - OTHER SPECIFIED DISEASES OF INTESTINE (10) BPH (benign prostatic hyperplasia) Current Visit: Yes Status: Chronic Assessment & Plan: - Continue flomax - urinary incontinence since unresponsive- christine placed 05/20 - UC negative Code(s): N40.0 - BENIGN PROSTATIC HYPERPLASIA WITHOUT LOWER URINRY TRACT SYMP (11) COPD (chronic obstructive pulmonary disease) Current Visit: No Status: Chronic Assessment & Plan: - Continue home meds (12) DM2 (diabetes mellitus, type 2) Current Visit: No Status: Chronic Assessment & Plan: - Carb Consistent diet - A1C reviewed from 04/22/24 7.36 - accuchecks AC/HS, low dose S/S. (13) Depression Current Visit: No Status: Chronic Assessment & Plan: - Continue home meds Code(s): F32.9 - MAJOR DEPRESSIVE DISORDER, SINGLE EPISODE, UNSPECIFIED (14) Epilepsy Current Visit: No Status: Chronic Assessment & Plan: - Continue Depakote Code(s): G40.909 - EPILEPSY, UNSP, NOT INTRACTABLE, WITHOUT STATUS EPILEPTICUS (15) Hx of aspiration pneumonitis Current Visit: No Status: Chronic Assessment & Plan: - With previous admissions - Continue thickened liquids. 05/25 -ST to obtain modified barium when able to wean BIPAP Code(s): Z87.09 - PERSONAL HISTORY OF OTHER DISEASES OF THE RESPIRATORY SYSTEM (16) Hx of traumatic brain injury Current Visit: No Status: Chronic Assessment & Plan: - Noted, adds to complexity - Pt has a hx of aspiration pneumonia from drinking non- thickened liquids. He reports being thirsty and not being to control himself. Code(s): Z87.820 - PERSONAL HISTORY OF TRAUMATIC BRAIN INJURY (17) Iron deficiency anemia Current Visit: No Status: Chronic Assessment & Plan: - Continue ferrous sulfate -CBC reviewed, hgb stable at 12.6 05/25: -CBC reviewed, hgb stable at 12.5 VTE: Loveonx PPI:Omeprazole Next of KIN: Sister D/C plan: 2-3 days Code status: SCO/DNR (2) Bilateral pneumonia Current Visit: No Status: Acute Code(s): J18.9 - PNEUMONIA, UNSPECIFIED ORGANISM (3) Hypernatremia Current Visit: Yes Status: Acute Code(s): E87.0 - HYPEROSMOLALITY AND HYPERNATREMIA (4) Generalized weakness Current Visit: Yes Status: Acute Code(s): R53.1 - WEAKNESS (5) Lactic acidosis Current Visit: Yes Status: Acute Code(s): E87.20 - ACIDOSIS, UNSPECIFIED (6) Mononucleosis syndrome Current Visit: No Status: Acute Code(s): B27.90 - INFECTIOUS MONONUCLEOSIS, UNSPECIFIED WITHOUT COMPLICATION (7) GERD (gastroesophageal reflux disease) Current Visit: Yes Status: Acute Code(s): K21.9 - GASTRO-ESOPHAGEAL REFLUX DISEASE WITHOUT ESOPHAGITIS (8) SEAN (acute kidney injury) Current Visit: Yes Status: Acute Code(s): N17.9 - ACUTE KIDNEY FAILURE, UNSPECIFIED (9) Gaseous distention of intestine determined by X-ray Current Visit: Yes Status: Acute Code(s): K63.89 - OTHER SPECIFIED DISEASES OF INTESTINE (10) BPH (benign prostatic hyperplasia) Current Visit: Yes Status: Chronic Code(s): N40.0 - BENIGN PROSTATIC HYPERPLASIA WITHOUT LOWER URINRY TRACT SYMP (11) COPD (chronic obstructive pulmonary disease) Current Visit: No Status: Chronic (12) DM2 (diabetes mellitus, type 2) Current Visit: No Status: Chronic (13) Depression Current Visit: No Status: Chronic Code(s): F32.9 - MAJOR DEPRESSIVE DISORDER, SINGLE EPISODE, UNSPECIFIED (14) Epilepsy Current Visit: No Status: Chronic Code(s): G40.909 - EPILEPSY, UNSP, NOT INTRACTABLE, WITHOUT STATUS EPILEPTICUS (15) Hx of aspiration pneumonitis Current Visit: No Status: Chronic Code(s): Z87.09 - PERSONAL HISTORY OF OTHER DISEASES OF THE RESPIRATORY SYSTEM (16) Hx of traumatic brain injury Current Visit: No Status: Chronic Code(s): Z87.820 - PERSONAL HISTORY OF TRAUMATIC BRAIN INJURY (17) Iron deficiency anemia Current Visit: No Status: Chronic Code(s): D50.9 - IRON DEFICIENCY ANEMIA, UNSPECIFIED
[2024-05-26 06:04] LABS: Absolute Neutrophil Ct (ANC) 10.44 x10^3/uL (1.78-5.38); BASOPHIL % 0.2 % (0.2-1.2); Basophil (Absolute #) 0.03 x10^3/uL (0.01-0.08); Eosinophil (Absolute #) 0 x10^3/uL (0.04-0.54); Hematocrit 36.1 % (40.1-51.0); Hemoglobin 11.7 g/dL (13.7-17.5); IMMATURE GRAN # 0.15 x10^3u/L (0.001-0.031); Lymphocyte (Absolute #) 3.29 x10^3/uL (1.32-3.57); Lymphocytes % 22.7 % (21.8-53.1); Mean Cell Volume 92.8 fL (79.0-92.2); Mean Corpuscular Hemoglobin 30.1 pg (25.7-32.2); Mean Corpuscular Hgb Concent. 32.4 g/dL (32.3-36.5); Mean Platelet Volume 11.1 fL (9.4-12.4); Monocyte (Absolute #) 0.61 x10^3/uL (0.30-0.82); Monocytes % 4.2 % (5.3-12.2); Neutrophil % 71.9 % (34.0-67.9); Platelet Count 174 x10^3/uL (163-337); Red Blood Count 3.89 x10^6/uL (4.63-6.08); Red Cell Distribution Width 14.1 % (11.6-14.4); White Blood Count 14.5 x10^3/uL (4.23-9.07)
[2024-05-26 06:19] LABS: ALBUMIN 3.1 g/dL (3.5-5.0); ANION GAP 10.8 MEQ/L (5-15); BILIRUBIN,TOTAL 0.5 mg/dL (0.2-1.3); Calcium 9.8 mg/dL (8.4-10.2); Creatinine 1 0.93 mg/dL (0.66-1.25); Potassium 3.7 mmol/L (3.5-5.1); Total Protein 6.2 g/dL (6.3-8.2)
[2024-05-26 06:50] VITALS: BP 117/56; PULSE 74; RESP 22; TEMP 99.6; O2SAT 94
[2024-05-26 09:07] LABS: A-aADO2 512; ABG HEMOGLOBIN 12.1; ABG POTASSIUM 3.6 (3.5-5.1); ARTERIAL BLD GAS O2 SATURATION 95.9 % (95-100); ARTERIAL BLOOD GAS BASE EXCESS 12.2 (-2.0-2.0); ARTERIAL BLOOD GAS FIO2 90 %; ARTERIAL BLOOD GAS PCO2 46 mmHg (35-45); ARTERIAL BLOOD GAS PO2 72 mmHg (75-100); ARTERIAL BLOOD GAS pH 7.51 (7.35-7.45); CARBOXYHEMOGLOBIN 0.7 % THgb (0.0-6.9); HCO3- 36.7 (22-28); HGB O2 SAT 93.9 g/dF (94-100); Methhemoglobin 1.3 % (1.4-1.5); paO2 pAO1 0.12
[2024-05-26 09:11] LABS: ABG SITE rt rad; ALLEN TEST OK? y
--- NOTE | 2024-05-26 09:45 | PCM.DS ---
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 GERD, COPD, epilepsy, depression, anxiety, and recurrent aspiration pneumonia. He presented to our ED for the second time in 24 hours 05/18/24 with complaints of shortness of breath, weakness and subjective fever. Afebrile in ED. He admits to drinking non-thickened liquids. Sister said he sneaks drinks. Patient was hypoxic on room air upon arrival. Patient normally does not require oxygen. Patient placed on 3 L nasal cannula. O2 sat 97%. CXR in ER showed BLL pneumonia and started on IV antibiotics. During hospital course patient had a noted decline and became hypoxic and unresponsive. At that time he was placed on BIPAP. Patient was off BIPAP for a while and at first did well, then dropped his sats into the 60's so BIPAP replaced. His lungs sound better. He may have problems swallowing. Will get ST eval. Sodium improved to 152. Will increase IV fluids. Continue Levaquin for treatment of pneumonia. Will have PT eval and treat for weakness. Unable to wean off BIPAP.CXR with worsened infiltrates on the Right. Unable to obtain modified barium with BIPAP. IP treatment now with cefepime to abx and dose lasix IV x 1. Patient to transfer to higher level of care. Discharge Note (1) Sepsis Current Visit: No Status: Acute Assessment & Plan: 2:2 pneumonia - see pneumonia plan (2) Bilateral pneumonia Current Visit: No Status: Acute Assessment & Plan: - Likely aspiration pneumonia as pt has a hx of this and is to be on thickened liquids.-noncompliant with diet modifications - Tele - BC X2 negative, repeat bcult x 2 NGTD/ ucult negative - CXR reviewed from 05/24 showing worsening of right infiltrates, left lung unchanges - doreen ortega - Continue IV antibiotic - antimicrobial history: -Levaquin 05/20-current -Vancomycin 05/22-05/23 -Doxycycline 05/18- 05/20 -Lasix 40mg x 1 dose - Documentation reviewed -Pulmonology consulted with no new recommendation - consulted again after patient declined - no changes and recommended comfort care - Hospice consult- family does not wish to have consult at this time - BIPAP by RT at 100% fio2 and mode switched to AVAPS due to vt 350 - Continue Levaquin and stop Vancomycin - BC negative - ST eval - DNR/SCO 05/25: -Add cefepime -WBC trending up 16.3>12.1 -unable to wean BIPAP -Lasix x 1 dose 40mg Code(s): J18.9 - PNEUMONIA, UNSPECIFIED ORGANISM (3) Hypernatremia Current Visit: Yes Status: Acute Assessment & Plan: -IVF at 125ml/hr discontinued -CMP reviewed, sodium level wnl at 145 -resolved- continue to monitor 05/25 -CMP reviewed, sodium at 149 - will continue D5W Code(s): E87.0 - HYPEROSMOLALITY AND HYPERNATREMIA (4) Generalized weakness Current Visit: Yes Status: Acute Assessment & Plan: -Secondary to current illness with pneumonia/mono - PT eval and treat. Code(s): R53.1 - WEAKNESS (5) Lactic acidosis Current Visit: Yes Status: Acute Assessment & Plan: - 2:2 pneumonia -resolved Code(s): E87.20 - ACIDOSIS, UNSPECIFIED (6) Mononucleosis syndrome Current Visit: No Status: Acute Assessment & Plan: - incidental finding on testing in ER - Supportive care. Code(s): B27.90 - INFECTIOUS MONONUCLEOSIS, UNSPECIFIED WITHOUT COMPLICATION (7) GERD (gastroesophageal reflux disease) Current Visit: Yes Status: Acute Assessment & Plan: - Continue PPI Code(s): K21.9 - GASTRO-ESOPHAGEAL REFLUX DISEASE WITHOUT ESOPHAGITIS (8) SEAN (acute kidney injury) Current Visit: Yes Status: Acute Assessment & Plan: - baseline 1.06 - CMP reviewed, creat better than baseline at 0.89 - IVF-discontinued -monitor renal/lytes -avoid nephrotoxic meds 05/25: -CMP reviewed - creat wnl at 0.89 -resolved Code(s): N17.9 - ACUTE KIDNEY FAILURE, UNSPECIFIED (9) Gaseous distention of intestine determined by X-ray Current Visit: Yes Status: Acute Assessment & Plan: - KUB reviewed - CT abd/ pelvis reviewed- demonstrates concern for chronic constipation with no obstruction - + constipation- Bisacodyl CO Code(s): K63.89 - OTHER SPECIFIED DISEASES OF INTESTINE (10) BPH (benign prostatic hyperplasia) Current Visit: Yes Status: Chronic Assessment & Plan: - Continue flomax - urinary incontinence since unresponsive- christine placed 05/20 - UC negative Code(s): N40.0 - BENIGN PROSTATIC HYPERPLASIA WITHOUT LOWER URINRY TRACT SYMP (11) COPD (chronic obstructive pulmonary disease) Current Visit: No Status: Chronic Assessment & Plan: - Continue home meds (12) DM2 (diabetes mellitus, type 2) Current Visit: No Status: Chronic Assessment & Plan: - Carb Consistent diet - A1C reviewed from 04/22/24 7.36 - accuchecks AC/HS, low dose S/S. (13) Depression Current Visit: No Status: Chronic Assessment & Plan: - Continue home meds Code(s): F32.9 - MAJOR DEPRESSIVE DISORDER, SINGLE EPISODE, UNSPECIFIED (14) Epilepsy Current Visit: No Status: Chronic Assessment & Plan: - Continue Depakote Code(s): G40.909 - EPILEPSY, UNSP, NOT INTRACTABLE, WITHOUT STATUS EPILEPTICUS (15) Hx of aspiration pneumonitis Current Visit: No Status: Chronic Assessment & Plan: - With previous admissions - Continue thickened liquids. 05/25 -ST to obtain modified barium when able to wean BIPAP Code(s): Z87.09 - PERSONAL HISTORY OF OTHER DISEASES OF THE RESPIRATORY SYSTEM (16) Hx of traumatic brain injury Current Visit: No Status: Chronic Assessment & Plan: - Noted, adds to complexity - Pt has a hx of aspiration pneumonia from drinking non- thickened liquids. He reports being thirsty and not being to control himself. Code(s): Z87.820 - PERSONAL HISTORY OF TRAUMATIC BRAIN INJURY (17) Iron deficiency anemia Current Visit: No Status: Chronic Assessment & Plan: - Continue ferrous sulfate -CBC reviewed, hgb stable at 12.6 05/25: -CBC reviewed, hgb stable at 12.5 I spent 35 minutes [id number] with the patient on the day of discharge performing discharge exam, discussing hospital stay and discharge instructions with patient and caregivers, preparation of discharge records, prescriptions & referral forms and addressing any questions/concerns the patient had as documented above. - Vitals & Intake/Output Vital Signs: Vital Signs Temperature 99.6 F 05/26/24 06:49 Pulse Rate 74 05/26/24 06:49 Respiratory Rate 22 05/26/24 06:49 Blood Pressure 117/56 05/26/24 06:49 O2 Sat by Pulse Oximetry 94 L 05/26/24 06:49 Intake & Output: Intake & Output 05/23/24 05/24/24 05/25/24 05/26/24 11:59 11:59 11:59 11:59 Intake Total 3263 3705 1293 2554 Output Total 1400 1850 2750 2450 Balance 1863 1855 -1457 104 - Lab Result Diagrams: 05/26/24 05:54 05/26/24 05:54 Lab Results-Last 24 Hrs: Lab Results-Last 24 Hours 05/25/24 05/25/24 05/25/24 Range/Units 08:26 11:22 20:12 WBC (4.23-9.07) x10^3/uL RBC (4.63-6.08) x10^6/uL Hgb (13.7-17.5) g/dL Hct (40.1-51.0) % MCV (79.0-92.2) fL MCH (25.7-32.2) pg MCHC (32.3-36.5) g/dL RDW (11.6-14.4) % Plt Count (163-337) x10^3/uL MPV (9.4-12.4) fL Gran % (34.0-67.9) % Immature Gran % (Auto) (0.001-0.429) % Nucleat RBC Rel Count (0.00-0.2) % Eos # (Auto) (0.04-0.54) x10^3/uL Immature Gran # (Auto) (0.001-0.031) x10^3u/L Absolute Lymphs (auto) (1.32-3.57) x10^3/uL Absolute Monos (auto) (0.30-0.82) x10^3/uL Absolute Nucleated RBC (0.00-0.012) x10^3u/L Lymphocytes % (21.8-53.1) % Monocytes % (5.3-12.2) % Eosinophils % (0.8-7.0) % Basophils % (0.2-1.2) % Absolute Granulocytes (1.78-5.38) x10^3/uL Basophils # (0.01-0.08) x10^3/uL Puncture Site pCO2 (35-45) mmHg pO2 (75-100) mmHg Base Excess (-2.0-2.0) O2 Saturation (94-100) g/dF ABG pH (7.35-7.45) ABG HCO3 (22-28) ABG O2 Sat (Measured) (95-100) % Mane Test A-a Gradient a/A Ratio Hemoglobin Carboxyhemoglobin (0.0-6.9) % THgb Methemoglobin (1.4-1.5) % Temperature C POC O2 Flow Rate % Sodium (135-145) mmol/L Potassium (3.5-5.1) mmol/L Chloride (98-107) mmol/L Carbon Dioxide (22-30) mmol/L Anion Gap (5-15) MEQ/L BUN (9-20) mg/dL Creatinine (0.66-1.25) mg/dL Estimated GFR ML/MIN Glucose (74-106) mg/dL POC Glucometer 167 H 292 H (74 to 106) mg/dL Calcium (8.4-10.2) mg/dL Total Bilirubin (0.2-1.3) mg/dL AST (17-59) U/L ALT (0-50) U/L Alkaline Phosphatase (38-126) U/L Serum Total Protein (6.3-8.2) g/dL Albumin (3.5-5.0) g/dL Nasal Screen MRSA (PCR) NOT DETECTED (NEGATIVE) 05/25/24 05/26/24 05/26/24 Range/Units 23:45 04:24 05:54 WBC 14.5 H (4.23-9.07) x10^3/uL RBC 3.89 L (4.63-6.08) x10^6/uL Hgb 11.7 L (13.7-17.5) g/dL Hct 36.1 L (40.1-51.0) % MCV 92.8 H (79.0-92.2) fL MCH 30.1 (25.7-32.2) pg MCHC 32.4 (32.3-36.5) g/dL RDW 14.1 (11.6-14.4) % Plt Count 174 (163-337) x10^3/uL MPV 11.1 (9.4-12.4) fL Gran % 71.9 H (34.0-67.9) % Immature Gran % (Auto) 1.0 H (0.001-0.429) % Nucleat RBC Rel Count 0.0 (0.00-0.2) % Eos # (Auto) 0 L (0.04-0.54) x10^3/uL Immature Gran # (Auto) 0.15 H (0.001-0.031) x10^3u/L Absolute Lymphs (auto) 3.29 (1.32-3.57) x10^3/uL Absolute Monos (auto) 0.61 (0.30-0.82) x10^3/uL Absolute Nucleated RBC 0.00 (0.00-0.012) x10^3u/L Lymphocytes % 22.7 (21.8-53.1) % Monocytes % 4.2 L (5.3-12.2) % Eosinophils % 0.0 L (0.8-7.0) % Basophils % 0.2 (0.2-1.2) % Absolute Granulocytes 10.44 H (1.78-5.38) x10^3/uL Basophils # 0.03 (0.01-0.08) x10^3/uL Puncture Site pCO2 (35-45) mmHg pO2 (75-100) mmHg Base Excess (-2.0-2.0) O2 Saturation (94-100) g/dF ABG pH (7.35-7.45) ABG HCO3 (22-28) ABG O2 Sat (Measured) (95-100) % Mane Test A-a Gradient a/A Ratio Hemoglobin Carboxyhemoglobin (0.0-6.9) % THgb Methemoglobin (1.4-1.5) % Temperature C POC O2 Flow Rate % Sodium (135-145) mmol/L Potassium (3.5-5.1) mmol/L Chloride (98-107) mmol/L Carbon Dioxide (22-30) mmol/L Anion Gap (5-15) MEQ/L BUN (9-20) mg/dL Creatinine (0.66-1.25) mg/dL Estimated GFR ML/MIN Glucose (74-106) mg/dL POC Glucometer 315 H 261 H (74 to 106) mg/dL Calcium (8.4-10.2) mg/dL Total Bilirubin (0.2-1.3) mg/dL AST (17-59) U/L ALT (0-50) U/L Alkaline Phosphatase (38-126) U/L Serum Total Protein (6.3-8.2) g/dL Albumin (3.5-5.0) g/dL Nasal Screen MRSA (PCR) (NEGATIVE) 05/26/24 05/26/24 05/26/24 Range/Units 05:54 07:51 08:48 WBC (4.23-9.07) x10^3/uL RBC (4.63-6.08) x10^6/uL Hgb (13.7-17.5) g/dL Hct (40.1-51.0) % MCV (79.0-92.2) fL MCH (25.7-32.2) pg MCHC (32.3-36.5) g/dL RDW (11.6-14.4) % Plt Count (163-337) x10^3/uL MPV (9.4-12.4) fL Gran % (34.0-67.9) % Immature Gran % (Auto) (0.001-0.429) % Nucleat RBC Rel Count (0.00-0.2) % Eos # (Auto) (0.04-0.54) x10^3/uL Immature Gran # (Auto) (0.001-0.031) x10^3u/L Absolute Lymphs (auto) (1.32-3.57) x10^3/uL Absolute Monos (auto) (0.30-0.82) x10^3/uL Absolute Nucleated RBC (0.00-0.012) x10^3u/L Lymphocytes % (21.8-53.1) % Monocytes % (5.3-12.2) % Eosinophils % (0.8-7.0) % Basophils % (0.2-1.2) % Absolute Granulocytes (1.78-5.38) x10^3/uL Basophils # (0.01-0.08) x10^3/uL Puncture Site rt rad pCO2 46 H (35-45) mmHg pO2 72 L (75-100) mmHg Base Excess 12.2 H (-2.0-2.0) O2 Saturation 93.9 L (94-100) g/dF ABG pH 7.51 H (7.35-7.45) ABG HCO3 36.7 H* (22-28) ABG O2 Sat (Measured) 95.9 (95-100) % Mane Test y A-a Gradient 512 a/A Ratio 0.12 Hemoglobin 12.1 Carboxyhemoglobin 0.7 (0.0-6.9) % THgb Methemoglobin 1.3 L (1.4-1.5) % Temperature 37.0 C POC O2 Flow Rate 90 % Sodium 144 (135-145) mmol/L Potassium 3.7 3.6 (3.5-5.1) mmol/L Chloride 103 (98-107) mmol/L Carbon Dioxide 34 H (22-30) mmol/L Anion Gap 10.8 (5-15) MEQ/L BUN 43 H (9-20) mg/dL Creatinine 0.93 (0.66-1.25) mg/dL Estimated GFR 90.0 ML/MIN Glucose 242 H (74-106) mg/dL POC Glucometer 178 H (74 to 106) mg/dL Calcium 9.8 (8.4-10.2) mg/dL Total Bilirubin 0.50 (0.2-1.3) mg/dL AST 32 (17-59) U/L ALT 26 (0-50) U/L Alkaline Phosphatase 47 (38-126) U/L Serum Total Protein 6.2 L (6.3-8.2) g/dL Albumin 3.1 L (3.5-5.0) g/dL Nasal Screen MRSA (PCR) (NEGATIVE) Micro Results-Entire Visit: Microbiology 05/20/24 09:49 Blood Culture - Final Blood 05/20/24 09:43 Blood Culture - Final Blood 05/18/24 13:31 Blood Culture - Final Blood 05/18/24 13:22 Blood Culture - Final Blood 05/20/24 10:21 Urine Culture - Final Urine, Indwelling Catheter NO GROWTH Accuchecks Date 05/26/24 Date 05/25/24 Date 05/25/24 Date 05/25/24 Time 04:26 Time 23:47 Time 20:16 - Radiology Exams Ordered Rad Exams-Entire Visit: Radiology Procedures Category Date Time Status MODIFIED BARIUM SWALLOW EXAM Routine Exams 05/26/24 07:00 Ordered - Procedures and Test Procedures and Tests throughout Hospitalization: Therapy Orders & Screens 05/18/24 15:17 Respiratory Therapy Assessment DAILY Comment: 05/18/24 16:46 PT Eval & Treat ( Order) ONCE Reason for Eval:: weakness Diagnosis: Bilateral pneumonia, hypoxia, fever 05/18/24 17:10 RT Screen per Nursing Assess ONCE Comment: Protocol Order Physician Instructions: Greater than 3 points order RT Admission Screen Reason For Exam: Triggered on Admission Diagnosis: pneumonia, weakness Diagnosis: pneumonia, weakness Pneumonia: Yes Home O2: No Asthma: Yes CHF: No Home CPAP/BIPAP: No Home Nebs/MDI: Yes Total Points: 12 05/18/24 17:27 Oxygen Nasal Cannula 3 lpm Comment: Diagnosis: pneumonia, weakness Respiratory Therapy Assessment DAILY Comment: Diagnosis: pneumonia, weakness 05/20/24 04:56 BiPap/CPAP ROUTINE Comment: Diagnosis: NGHIA PNEUMONIA, HYPOXIA, WEAKNESS 05/22/24 13:25 BiPap/CPAP ROUTINE Comment: Diagnosis: NGHIA PNEUMONIA, HYPOXIA, WEAKNESS 05/23/24 13:17 OT Eval and Treat ( Order) ROUTINE Comment: Physician Instructions: Reason For Exam: weakness Evaluate: Yes Treat: Yes Diagnosis: NGHIA PNEUMONIA, HYPOXIA, WEAKNESS 05/24/24 13:16 Speech Therapy Eval & Treat [ST Eval & Treat ( Order)] .as ordered Comment: Physician Instructions: Reason For Exam: Evaluate: Yes: decreased O2 with sips Treat: Yes Reason for Eval: Decreased O2 with sips of thickend fluid Diagnosis: NGHIA PNEUMONIA, HYPOXIA, WEAKNESS 05/24/24 13:49 Modified Barium Swallow Eval .as ordered Comment: Physician Instructions: Reason For Exam: aspiration; pneumonia 05/24/24 16:22 Oxygen High Flow per RT 100% Comment: Diagnosis: NGHIA PNEUMONIA, HYPOXIA, WEAKNESS Discharge Exam General Appearance: no apparent distress Neurologic Exam: alert, oriented x 3, agitation Eye Exam: PERRL Ears, Nose, Throat Exam: normal ENT inspection Neck Exam: normal inspection Respiratory Exam: diminished breath sounds, crackles/rales, wheezing Cardiovascular Exam: regular rate/rhythm, normal heart sounds Gastrointestinal/Abdomen Exam: soft, normal bowel sounds Male Genitalia Exam: deferred Rectal Exam: deferred Back Exam: normal inspection Extremity Exam: normal inspection Skin Exam: pale Final Diagnosis/Problem List - Final Discharge Diagnosis/Problem (1) Sepsis Current Visit: No Status: Acute (2) Bilateral pneumonia Current Visit: No Status: Acute Code(s): J18.9 - PNEUMONIA, UNSPECIFIED ORGANISM (3) Hypernatremia Current Visit: Yes Status: Acute Code(s): E87.0 - HYPEROSMOLALITY AND HYPERNATREMIA (4) Generalized weakness Current Visit: Yes Status: Acute Code(s): R53.1 - WEAKNESS (5) Lactic acidosis Current Visit: Yes Status: Acute Code(s): E87.20 - ACIDOSIS, UNSPECIFIED (6) Mononucleosis syndrome Current Visit: No Status: Acute Code(s): B27.90 - INFECTIOUS MONONUCLEOSIS, UNSPECIFIED WITHOUT COMPLICATION (7) GERD (gastroesophageal reflux disease) Current Visit: Yes Status: Acute Code(s): K21.9 - GASTRO-ESOPHAGEAL REFLUX DISEASE WITHOUT ESOPHAGITIS (8) SEAN (acute kidney injury) Current Visit: Yes Status: Acute Code(s): N17.9 - ACUTE KIDNEY FAILURE, UNSPECIFIED (9) Gaseous distention of intestine determined by X-ray Current Visit: Yes Status: Acute Code(s): K63.89 - OTHER SPECIFIED DISEASES OF INTESTINE (10) BPH (benign prostatic hyperplasia) Current Visit: Yes Status: Chronic Code(s): N40.0 - BENIGN PROSTATIC HYPERP LASIA WITHOUT LOWER URINRY TRACT SYMP (11) COPD (chronic obstructive pulmonary disease) Current Visit: No Status: Chronic (12) DM2 (diabetes mellitus, type 2) Current Visit: No Status: Chronic (13) Depression Current Visit: No Status: Chronic Code(s): F32.9 - MAJOR DEPRESSIVE DISORDER, SINGLE EPISODE, UNSPECIFIED (14) Epilepsy Current Visit: No Status: Chronic Code(s): G40.909 - EPILEPSY, UNSP, NOT INTRACTABLE, WITHOUT STATUS EPILEPTICUS (15) Hx of aspiration pneumonitis Current Visit: No Status: Chronic Code(s): Z87.09 - PERSONAL HISTORY OF OTHER DISEASES OF THE RESPIRATORY SYSTEM (16) Hx of traumatic brain injury Current Visit: No Status: Chronic Code(s): Z87.820 - PERSONAL HISTORY OF TRAUMATIC BRAIN INJURY (17) Iron deficiency anemia Current Visit: No Status: Chronic Code(s): D50.9 - IRON DEFICIENCY ANEMIA, UNSPECIFIED - Discharge Disposition: DC TO OTHER HOSP Condition: Fair Prescriptions: New HydrALAzine HCL 20 MG INJ [Apresoline 20 mg/ml Inj] 20 mg IV Q6H PRN PRN PRN Reason: Hypertension Enoxaparin Sodium [Enoxaparin Sodium] 40 mg SQ DAILY Acetaminophen 650 mg [Feverall 650 mg] 650 mg CO Q4H PRN PRN supp PRN Reason: Pain And/Or Fever Levofloxacin [Levofloxacin 500MG/100ML D5W] 500 mg IV DAILY Cefepime HCl 2 gm [Maxipime 2 GM] 2 g IV Q8H Pantoprazole 40 mg [Protonix 40 mg IV] 40 mg IV BID Albuterol 2.5 mg/3 ml Neb [Proventil 2.5 mg/3 ml Neb] 2.5 mg IH QIDRT Methylprednisolone Sod Suc 40M [solu-MEDROL] 40 mg IV Q12HT Continue Omeprazole 40 mg PO BIDAC Primidone 50 MG [Mysoline 50Mg] 50 mg PO TID Duloxetine HCl [Cymbalta] 60 mg PO BID Divalproex Sodium [Depakote] 1,000 mg PO BID Multivitamin [Multivitamins] 1 cap PO DAILY Loratadine 10 mg PO DAILY Atorvastatin Calcium 40 mg PO HS Maltodextrin/Xanthan Gum [Thicken Up Clear Powder Packet] 1 packet PO ACHS EPINEPHrine [Epipen 2-Jeffery] 0.3 mg IM UD PRN PRN Reason: allergic reaction Aspirin 81 mg PO DAILY Gabapentin [Neurontin ] 300 mg PO TID capsule Acetaminophen 500 mg [Tylenol Extra Strength 500 mg] 500 mg PO DAILY Docusate Sodium 100 mg [Docusate Sodium 100 MG] 100 mg PO BID PRN PRN Reason: Constipation Theophylline Anhydrous [Theophylline ER 24Hr] 400 mg PO BID Calcium Carbonate/Vitamin D3 [Calcium 600 mg-D3 10 Mcg Sfgl] 1 tab PO DAILY Tamsulosin HCl 0.4 mg [Flomax 0.4 MG] 0.4 mg PO HS Albuterol Sulfate 0.63 mg IH TID Polyethylene Glycol 3350 17 gm [Miralax Powder 17GM PACKET] 17 gm PO DAILY Bupropion HCl Xl 150 mg [Wellbutrin XL 150 MG] 150 mg PO DAILY Empagliflozin [Jardiance] 10 mg PO DAILY Albuterol Sulfate [Proair Digihaler] 2 puff IH QID glucagon HCL [Glucagon Emergency Kit] 1 mg SQ UD Cholecalciferol (Vitamin D3) [Vitamin D3] 25 mcg PO DAILY Clotrimazole/Betamethasone Dip [Clotrimazole-Betamethasone Lot] 1 applic TOP BIDPRN PRN PRN Reason: Redness/Irritation risperiDONE [Risperdal] 2 mg PO HS risperiDONE [Risperidone] 1 tab PO DAILY Tiotropium [place] [Spiriva Handihaler] 1 cap PO DAILY Oxybutynin Chloride [Oxybutynin Chloride ER] 10 mg PO DAILY Hyoscyamine Sulfate [Levsin] 1 tab PO BID PRN PRN Reason: Stomach Upset Ferrous Sulfate 325 mg [Feosol 325 mg] 325 mg PO DAILY Dextromethorphan HBr 15 mg PO BID Fluticasone Propion/Salmeterol [Wixela 250-50 Inhub] 1 puff PO BID Scopolamine [SCOPOLAMINE 1 mg/3 Day patch] 1 mg TD Q3D Follow up with: FELISHA NAVAS MD [Primary Care Provider] -
== END 2024-05-26 11:20 | disposition home or self-care (01) | DRG 871 ==
LOC: ED 12:35 → MED SURG 16:39 → OBSVTOIN 16:39 → MED SURG 05-22 14:15
PROVIDERS: ADMIT Internal Medicine; ATTEND Internal Medicine
DX: A41.9 Sepsis, unspecified organism (principal); J18.9 Pneumonia, unspecified organism; E87.0 Hyperosmolality and hypernatremia; E87.20 Acidosis, unspecified; N17.9 Acute kidney failure, unspecified; R53.1 Weakness; B27.90 Infectious mononucleosis, unspecified without complication; K21.9 Gastro-esophageal reflux disease without esophagitis; K63.89 Other specified diseases of intestine; N40.0 Benign prostatic hyperplasia without lower urinary tract symptoms; J44.9 Chronic obstructive pulmonary disease, unspecified; E11.9 Type 2 diabetes mellitus without complications; F32.9 Major depressive disorder, single episode, unspecified; G40.909 Epilepsy, unspecified, not intractable, without status epilepticus; D50.9 Iron deficiency anemia, unspecified; D72.829 Elevated white blood cell count, unspecified; E78.5 Hyperlipidemia, unspecified; F41.9 Anxiety disorder, unspecified; Z87.09 Personal history of other diseases of the respiratory system; Z87.820 Personal history of traumatic brain injury; Z79.899 Other long term (current) drug therapy
CPT/HCPCS: 0241U; 36000; 36415; 36600; 70450; 71045; 74018; 74176; 80053; 80202; 81001; 82375; 82803; 82947; 83605; 83735; 83930; 83935; 84132; 84295; 85025; 85027; 86308; 87040; 87086; 87641; 87651; 93005; 93268; 94002; 94003; 94640; 94760; 94762; 96372; 97161; 97530; 99285; Q3014; J0360; J0692; J1650; J1817; J1940; J1956; J2060; J2270; J2919; J3480; J7609; A9270-GY; J3370